=== PATIENT | female | born 1950 | race Caucasian/White ===

== ENCOUNTER 2019-05-06 12:01 | Inpatient (IN) ==
[2019-05-06] MEDS ORDERED: IOPAMIDOL 100 ML BOTTLE IV ONE (12:02)
[2019-05-06] MEDS ORDERED: 0.9 % SODIUM CHLORIDE 1,000 ML IV ONE ×2 (12:25→13:56)
--- NOTE | 2019-05-06 12:26 | Emergency Department Note ---
Altered Mental Status HPI - General Chief Complaint: Altered Mental Status Stated Complaint: Decreased LOC, Time Seen by Provider: 05/06/19 12:16 Source: patient, EMS Mode of arrival: EMS Limitations: no limitations - History of Present Illness HPI Narrative: 69-year-old female brought in by ambulance which apparently she is been on the floor for approximately 5 hours after falling out of her recliner and she was then unable to get up apparently she has a care provider and the care provider arrived when she was laying on the floor and she called 911. Apparently at 5:00 in the morning automotive glass mechanic went out to her house at approximately 5:00 in the morning because she apparently states that she had vomited. According to the fire department they have been to her house 49 times in the last month as she calls them frequently. Apparently she has dementia. Patient states she was just too weak to get up and had been vomiting prior. She denies any loss of consciousness denying any pain at this time.Septra temperature 97.0 pulse is 60 respirations are 18 blood pressure 132/71 pulse ox is 95% - Related Data Home Medications Medication Instructions Recorded Confirmed RX: Liothyronine Sodium 25 mcg PO HS 09/06/15 02/13/19 RX: amLODIPine [Norvasc] 10 mg PO DAILY 09/06/15 02/13/19 RX: Gabapentin [Neurontin] 200 mg PO TIDP PRN 06/09/18 02/13/19 RX: LORazepam [Ativan] 1 mg PO BID 06/09/18 02/13/19 RX: Levothyroxine [Synthroid] 175 mcg PO DAILY 06/09/18 02/13/19 RX: Losartan/Hydrochlorothiazide 1 each PO DAILY 06/09/18 02/13/19 [Losartan-Hctz 100-12.5 mg Tab] RX: PARoxetine [Paxil] 20 mg PO DAILY 06/09/18 12/25/18 RX: lamoTRIgine [Lamictal] 200 mg PO DAILY 06/09/18 12/25/18 RX: metFORMIN HCL [Metformin ER 500 mg PO BID 06/09/18 02/13/19 Osmotic] RX: traZODone HCL [Trazodone HCl] 150 mg PO HS 06/09/18 02/13/19 RX: QUEtiapine [Seroquel] 300 mg PO HS 06/10/18 02/13/19 linaclotide 290 mcg capsule 290 mcg PO QDAY 12/25/18 02/13/19 Previous Rx's Medication Instructions Recorded Peg 3350/Na Sulf,Bicarb,Cl/KCl 4,000 ml PO ONCE #1 oral.cristy 02/13/19 [Golytely] Sennosides/Docusate Sodium 1 each PO DAILY #30 tab 02/13/19 [Senna-S Tablet] Pantoprazole Sodium [Protonix] 40 mg PO DAILY #30 tablet. 04/06/19 Allergies Allergy/AdvReac Type Severity Reaction Status Date / Time Penicillins Allergy Severe Swelling Verified 05/06/19 12:09 of Throat Review of Systems All systems ED: reviewed and negative except as stated. Constitutional: Denies: fever, chills Neurological: Reports: weakness. Denies: headache, numbness, paresthesias, confusion, abnormal gait, dizziness Past Medical History - Past Medical History [facility] Narrative: All Active Problems (Last Updated 04/06/19 @ 07:24 by Osvaldo Grimes DO) Nausea & vomiting (Acute) Polydipsia (Acute) Peptic ulcer disease (Acute) Cigarette smoker (Chronic) Diabetes mellitus type 2, controlled (Chronic) Alzheimer's disease (Chronic) Bipolar disorder (Chronic) Elevated serum GGT level (Chronic) Hypertension, essential (Chronic) Hyperlipidemia (Chronic) Hypothyroidism (acquired) (Chronic) Obesity (Chronic) Constipation (Chronic) Vitamin D deficiency (Chronic) Osteoporosis (Chronic) Osteopenia (Chronic) Constipation (Chronic) Anxiety about health (Chronic) Cognitive dysfunction (Chronic) Cough (Chronic) Abdominal pain (Chronic) Schwannoma (Chronic 02/06/12) Depression (Chronic) Seborrhea (Chronic) Past Surgical History (Last Updated 07/25/18 @ 23:47 by Osvaldo Grimes DO) H/O colonoscopy (Inactive 08/23/15) Family History Mother Arthritis Essential hypertension Father Myocardial Infarction Unknown Chronic obstructive pulmonary disease Medical history: Reports: cancer, COPD, dementia, DM, hyperlipidemia, hypertension, osteoporosis, thyroid disease, other Psychiatric history: Reports: anxiety, bipolar [employer]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 Absent: respiratory distress, rales/crackles, wheezes Cardiovascular: Present: regular rate, normal rhythm, normal heart sounds. Absent: bradycardia, tachycardia, irregular rhythm Abdominal: Present: soft, normal bowel sounds. Absent: distention, tenderness, guarding, rebound, rigidity Extremities: Present: normal inspection, full ROM. Absent: tenderness Back: Present: normal inspection, full ROM. Absent: tenderness Patient oriented to: Present: person, place, time Speech: Present: fluid speech Cranial nerves: EOM function (II, III, IV, ): Normal, facial sensation (V): Normal, facial palsy (VII): Normal, gag reflex (IX): Normal, spinal accessory function (XI): Normal, tongue deviation (XII): Normal Motor strength - LUE: 4/5 Motor strength - RUE: 4/5 Motor strength - LLE: 4/5 Motor strength - RLE: 4/5 Upper motor neuron exam: Babinski sign: Absent bilaterally Sensory exam upper extremity: Normal: light touch Sensory exam lower extremity: Normal: light touch DTR: 2+: patellar (L), patellar (R) Coma Scale Eye Opening: Spontaneous Coma Scale Motor Response: Obeys Commands Coma Scale Verbal Response: Oriented Coma Scale Total: 15 Psychiatric: Present: flat affect Course Vital Signs Temperature 97.0 F 05/06/19 12:03 Pulse Rate 60 05/06/19 12:03 Respiratory Rate 18 05/06/19 12:03 Blood Pressure 132/71 05/06/19 12:03 Pulse Oximetry (%) 95 05/06/19 12:03 Temperature 97.0 F 05/06/19 15:30 Pulse Rate 73 05/06/19 15:30 Respiratory Rate 18 05/06/19 15:30 Blood Pressure 151/86 05/06/19 15:30 Pulse Oximetry (%) 97 05/06/19 15:30 Altered Mental Status - MDM Narrative Medical decision making narrative: Potassium was 2.8 and K rider home. Given IV fluids sodium was low at 110. Patient consulted with Dr. Hirsch he is here to evaluate patient patient to be admitted blood was less than 0.01 - Lab Data Result diagrams: 05/06/19 13:47 05/06/19 12:43 Lab Results 05/06/19 05/06/19 05/06/19 Range/Units 12:43 12:43 12:43 WBC (4.5-11.0) K/mcL RBC (4.00-5.20) M/mcL Hgb (12.0-15.0) g/dL Hct (36.0-48.0) % POC Hct 41.0 (36.0-48.0) % MCV (80.0-100.0) fL MCH (26.0-34.0) pg MCHC (31.0-36.0) g/dL RDW (11.5-14.5) % Plt Count (140-440) K/mcL MPV (7.4-10.4) fL Gran % (38.0-78.0) % Lymph % (Auto) (15.5-49.0) % [place] % (Auto) (1.0-12.0) % Eos % (Auto) (0.0-7.0) % Baso % (Auto) (0.0-2.0) % Gran # (1.8-8.0) K/mcL Lymph # (Auto) (1.5-4.8) K/mcL [place] # (Auto) (0.1-0.9) K/mcL Eos # (Auto) (0.0-0.7) K/mcL Baso # (Auto) (0.0-0.3) K/mcL POC PT 11.7 L (11.9-14.5) sec POC INR 1.0 (0.9-1.2) VBG Lactic Acid (0.5-2.0) mmol/L POC Sodium 110 L* (133-145) mmol/L Sodium 112 L* (133-145) mmol/L POC Potassium 2.8 L* (3.3-5.1) mmol/L Potassium 2.8 L* (3.3-5.1) mmol/L POC Chloride 73 L (96-108) mmol/L Chloride 74 L (96-108) mmol/L Carbon Dioxide 26 (22-30) mmol/L POC Total CO2 27 (22-30) mmol/L Anion Gap 12.0 (8-16) POC BUN < 3 L (8-23) mg/dl BUN 4 L (8-23) mg/dl Creatinine 0.7 (0.6-1.1) mg/dl POC Creatinine 0.7 (0.6-1.1) mg/dl GFR Calculation 88 Glucose 105 (70-105) mg/dL POC Glucose 107 H (70-105) mg/dL Calcium 10.2 (8.6-10.4) mg/dl POC WB Ioniz Calcium 1.14 L (1.16-1.32) mmol/L Magnesium (1.6-2.5) mg/dL Total Bilirubin 1.1 H (0.0-1.0) mg/dL AST 27 (0-37) U/l ALT 19 (0-40) U/l Alkaline Phosphatase 84 (39-117) U/L Total Creatine Kinase 491 H (24-170) IU/L CK-MB (CK-2) (0-2.9) ng/ml Myoglobin 550 H (25-58) ng/ml Troponin T (0-0.03) ng/ml Total Protein 6.9 (5.9-8.4) gm/dL Albumin 4.3 (3.2-5.2) gm/dL Globulin 2.6 (2.2-3.7) gm/dL Albumin/Globulin Ratio 1.7 (1.0-2.3) TSH (0.27-5.01) uIU/ml Random Cortisol ug/dl Urine Color Urine Appearance Urine pH (5.0-9.0) Ur Specific [place] (1.000-1.035) Urine Protein (NEG) mg/dL Urine Glucose (UA) (NEG) mg/dL Urine Ketones (NEG) mg/dL Urine Occult Blood (<0.03) mg/dL Urine Nitrate (NEG) Urine Bilirubin (NEG) mg/dL Urine Urobilinogen (NEG) mg/dL Ur Leukocyte Esterase (NEG) /uL Ur Culture Indicated? Urine Osmolality (80-1000) mOsm/kg Ur Random Sodium mmol/L Ethyl Alcohol < 0.010 (<0.010) gm/dl 05/06/19 05/06/19 05/06/19 Range/Units 12:44 12:44 12:44 WBC (4.5-11.0) K/mcL RBC (4.00-5.20) M/mcL Hgb (12.0-15.0) g/dL Hct (36.0-48.0) % POC Hct (36.0-48.0) % MCV (80.0-100.0) fL MCH (26.0-34.0) pg MCHC (31.0-36.0) g/dL RDW (11.5-14.5) % Plt Count (140-440) K/mcL MPV (7.4-10.4) fL Gran % (38.0-78.0) % Lymph % (Auto) (15.5-49.0) % [place] % (Auto) (1.0-12.0) % Eos % (Auto) (0.0-7.0) % Baso % (Auto) (0.0-2.0) % Gran # (1.8-8.0) K/mcL Lymph # (Auto) (1.5-4.8) K/mcL [place] # (Auto) (0.1-0.9) K/mcL Eos # (Auto) (0.0-0.7) K/mcL Baso # (Auto) (0.0-0.3) K/mcL POC PT (11.9-14.5) sec POC INR (0.9-1.2) VBG Lactic Acid 1.9 (0.5-2.0) mmol/L POC Sodium (133-145) mmol/L Sodium (133-145) mmol/L POC Potassium (3.3-5.1) mmol/L Potassium (3.3-5.1) mmol/L POC Chloride (96-108) mmol/L Chloride (96-108) mmol/L Carbon Dioxide (22-30) mmol/L POC Total CO2 (22-30) mmol/L Anion Gap (8-16) POC BUN (8-23) mg/dl BUN (8-23) mg/dl Creatinine (0.6-1.1) mg/dl POC Creatinine (0.6-1.1) mg/dl GFR Calculation Glucose (70-105) mg/dL POC Glucose (70-105) mg/dL Calcium (8.6-10.4) mg/dl POC WB Ioniz Calcium (1.16-1.32) mmol/L Magnesium (1.6-2.5) mg/dL Total Bilirubin (0.0-1.0) mg/dL AST (0-37) U/l ALT (0-40) U/l Alkaline Phosphatase (39-117) U/L Total Creatine Kinase (24-170) IU/L CK-MB (CK-2) 9.0 H (0-2.9) ng/ml Myoglobin (25-58) ng/ml Troponin T < 0.01 (0-0.03) ng/ml Total Protein (5.9-8.4) gm/dL Albumin (3.2-5.2) gm/dL Globulin (2.2-3.7) gm/dL Albumin/Globulin Ratio (1.0-2.3) TSH (0.27-5.01) uIU/ml Random Cortisol ug/dl Urine Color Urine Appearance Urine pH (5.0-9.0) Ur Specific [place] (1.000-1.035) Urine Protein (NEG) mg/dL Urine Glucose (UA) (NEG) mg/dL Urine Ketones (NEG) mg/dL Urine Occult Blood (<0.03) mg/dL Urine Nitrate (NEG) Urine Bilirubin (NEG) mg/dL Urine Urobilinogen (NEG) mg/dL Ur Leukocyte Esterase (NEG) /uL Ur Culture Indicated? Urine Osmolality (80-1000) mOsm/kg Ur Random Sodium mmol/L Ethyl Alcohol (<0.010) gm/dl 05/06/19 05/06/19 05/06/19 Range/Units 12:44 13:47 14:16 WBC 12.7 H (4.5-11.0) K/mcL RBC 4.47 (4.00-5.20) M/mcL Hgb 12.9 (12.0-15.0) g/dL Hct 38.2 (36.0-48.0) % POC Hct (36.0-48.0) % MCV 85.4 (80.0-100.0) fL MCH 28.9 (26.0-34.0) pg MCHC 33.8 (31.0-36.0) g/dL RDW 12.9 (11.5-14.5) % Plt Count 292 (140-440) K/mcL MPV 6.9 L (7.4-10.4) fL Gran % 82.9 H (38.0-78.0) % Lymph % (Auto) 8.8 L (15.5-49.0) % [place] % (Auto) 7.9 (1.0-12.0) % Eos % (Auto) 0.3 (0.0-7.0) % Baso % (Auto) 0.1 (0.0-2.0) % Gran # 10.5 H (1.8-8.0) K/mcL Lymph # (Auto) 1.1 L (1.5-4.8) K/mcL [place] # (Auto) 1.0 H (0.1-0.9) K/mcL Eos # (Auto) 0 (0.0-0.7) K/mcL Baso # (Auto) 0 (0.0-0.3) K/mcL POC PT (11.9-14.5) sec POC INR (0.9-1.2) VBG Lactic Acid (0.5-2.0) mmol/L POC Sodium (133-145) mmol/L Sodium (133-145) mmol/L POC Potassium (3.3-5.1) mmol/L Potassium (3.3-5.1) mmol/L POC Chloride (96-108) mmol/L Chloride (96-108) mmol/L Carbon Dioxide (22-30) mmol/L POC Total CO2 (22-30) mmol/L Anion Gap (8-16) POC BUN (8-23) mg/dl BUN (8-23) mg/dl Creatinine (0.6-1.1) mg/dl POC Creatinine (0.6-1.1) mg/dl GFR Calculation Glucose (70-105) mg/dL POC Glucose (70-105) mg/dL Calcium (8.6-10.4) mg/dl POC WB Ioniz Calcium (1.16-1.32) mmol/L Magnesium (1.6-2.5) mg/dL Total Bilirubin (0.0-1.0) mg/dL AST (0-37) U/l ALT (0-40) U/l Alkaline Phosphatase (39-117) U/L Total Creatine Kinase (24-170) IU/L CK-MB (CK-2) (0-2.9) ng/ml Myoglobin (25-58) ng/ml Troponin T (0-0.03) ng/ml Total Protein (5.9-8.4) gm/dL Albumin (3.2-5.2) gm/dL Globulin (2.2-3.7) gm/dL Albumin/Globulin Ratio (1.0-2.3) TSH (0.27-5.01) uIU/ml Random Cortisol ug/dl Urine Color Straw Urine Appearance Clear Urine pH 7.0 (5.0-9.0) Ur Specific [place] 1.001 (1.000-1.035) Urine Protein Neg (NEG) mg/dL Urine Glucose (UA) Negative (NEG) mg/dL Urine Ketones Neg (NEG) mg/dL Urine Occult Blood Neg (<0.03) mg/dL Urine Nitrate Neg (NEG) Urine Bilirubin Neg (NEG) mg/dL Urine Urobilinogen Neg (NEG) mg/dL Ur Leukocyte Esterase Neg (NEG) /uL Ur Culture Indicated? No Urine Osmolality 60 L (80-1000) mOsm/kg Ur Random Sodium < 20 mmol/L Ethyl Alcohol (<0.010) gm/dl 05/06/19 05/06/19 Range/Units 14:16 14:35 WBC (4.5-11.0) K/mcL RBC (4.00-5.20) M/mcL Hgb (12.0-15.0) g/dL Hct (36.0-48.0) % POC Hct (36.0-48.0) % MCV (80.0-100.0) fL MCH (26.0-34.0) pg MCHC (31.0-36.0) g/dL RDW (11.5-14.5) % Plt Count (140-440) K/mcL MPV (7.4-10.4) fL Gran % (38.0-78.0) % Lymph % (Auto) (15.5-49.0) % [place] % (Auto) (1.0-12.0) % Eos % (Auto) (0.0-7.0) % Baso % (Auto) (0.0-2.0) % Gran # (1.8-8.0) K/mcL Lymph # (Auto) (1.5-4.8) K/mcL [place] # (Auto) (0.1-0.9) K/mcL Eos # (Auto) (0.0-0.7) K/mcL Baso # (Auto) (0.0-0.3) K/mcL POC PT (11.9-14.5) sec POC INR (0.9-1.2) VBG Lactic Acid (0.5-2.0) mmol/L POC Sodium (133-145) mmol/L Sodium (133-145) mmol/L POC Potassium (3.3-5.1) mmol/L Potassium (3.3-5.1) mmol/L POC Chloride (96-108) mmol/L Chloride (96-108) mmol/L Carbon Dioxide (22-30) mmol/L POC Total CO2 (22-30) mmol/L Anion Gap (8-16) POC BUN (8-23) mg/dl BUN (8-23) mg/dl Creatinine (0.6-1.1) mg/dl POC Creatinine (0.6-1.1) mg/dl GFR Calculation Glucose (70-105) mg/dL POC Glucose (70-105) mg/dL Calcium (8.6-10.4) mg/dl POC WB Ioniz Calcium (1.16-1.32) mmol/L Magnesium 1.6 (1.6-2.5) mg/dL Total Bilirubin (0.0-1.0) mg/dL AST (0-37) U/l ALT (0-40) U/l Alkaline Phosphatase (39-117) U/L Total Creatine Kinase (24-170) IU/L CK-MB (CK-2) (0-2.9) ng/ml Myoglobin (25-58) ng/ml Troponin T (0-0.03) ng/ml Total Protein (5.9-8.4) gm/dL Albumin (3.2-5.2) gm/dL Globulin (2.2-3.7) gm/dL Albumin/Globulin Ratio (1.0-2.3) TSH 0.79 (0.27-5.01) uIU/ml Random Cortisol 34.33 ug/dl Urine Color Urine Appearance Urine pH (5.0-9.0) Ur Specific [place] (1.000-1.035) Urine Protein (NEG) mg/dL Urine Glucose (UA) (NEG) mg/dL Urine Ketones (NEG) mg/dL Urine Occult Blood (<0.03) mg/dL Urine Nitrate (NEG) Urine Bilirubin (NEG) mg/dL Urine Urobilinogen (NEG) mg/dL Ur Leukocyte Esterase (NEG) /uL Ur Culture Indicated? Urine Osmolality (80-1000) mOsm/kg Ur Random Sodium mmol/L Ethyl Alcohol (<0.010) gm/dl Disposition Pt seen by OUTPATIENT PHYSICAL THERAPIST/PA only: No Clinical Impression: Hypokalemia, Hyponatremia Disposition: Xfer As Inpt ([facility]) Condition: Fair
[2019-05-06 12:51] LABS: POC Blood Urea Nitrogen < 3 mg/dl (8-23); POC CO2 27 mmol/L (22-30); POC Calcium, Ionized 1.14 mmol/L (1.16-1.32); POC Chloride 73 mmol/L (96-108); POC Creatinine 0.7 mg/dl (0.6-1.1); POC Glucose, Random 107 mg/dL (70-105); POC Potassium 2.8 mmol/L (3.3-5.1); POC Pro Time 11.7 sec (11.9-14.5); POC Sodium 110 mmol/L (133-145)
[2019-05-06] MEDS ORDERED: POTASSIUM CHLORIDE 40 MEQ in DEXTROSE 5% IN WATER 500 ML IV ONE ×2 (12:54→21:22)
[2019-05-06 13:19] LABS: Appearance,Urine CLEAR; Bilirubin,Urine NEG (NEG); Color,Urine STRAW; Culture Indicated,Urine NO; Glucose,Urine (UA) NEGATIVE (NEG); Ketones,Urine NEG (NEG); Leukocyte Esterase,Urine NEG /uL (NEG); Nitrate,Urine NEG (NEG); Protein,Urine NEG (NEG); Specific Gravity,Urine 1.001 (1.000-1.035); Urine Blood NEG mg/dL (<0.03); Urobilinogen,Urine NEG (NEG)
--- NOTE | 2019-05-06 13:28 | XRay Report ---
CLINICAL INFORMATION: dec loc COMPARISON: 04/06/2019 FINDINGS: The heart size, mediastinum and pulmonary vessels are unremarkable. The lungs are clear. There are no effusions. The bones and soft tissues are within normal limits. IMPRESSION: Normal chest. Interpreted and Authenticated by: Paul Harper 05/06/19
--- NOTE | 2019-05-06 13:28 | Cat Scan Report ---
CLINICAL INFORMATION: Altered mental status COMPARISON: 02/20/2018 TECHNIQUE: 2.5 mm helical slices were obtained in the skull base to vertex. Following reconstruction, axial reformatted images were reviewed at bone and parenchymal windows. The exam was performed using radiation dose optimization techniques including, but not limited to, automated exposure control, adjustment of the mA and/or kV according to patient size and use of iterative reconstruction technique. FINDINGS: The ventricles, sulci, fissures, and cisterns are normal in size and configuration for age. No extra-axial fluid collections are identified. Minimal chronic ischemic changes in the superior white matter typical for age - cerebrum, brainstem and cerebellum are, otherwise, unremarkable. There is no evidence of hemorrhage, mass effect, or edema. Bone windows show no osseous abnormality. IMPRESSION: Mild atrophy and minimal chronic ischemic changes in the deep cerebral white matter - typical for age and stable. Interpreted and Authenticated by: Paul Harper 05/06/19
[2019-05-06 13:33] LABS: Alcohol, Blood < 10.0 mg/dL (<10); Alcohol,Blood < 0.010 gm/dl (<0.010)
[2019-05-06 13:43] LABS: Myoglobin 550 ng/ml (25-58)
[2019-05-06 13:49] LABS: ALT/SGPT 19 U/l (0-40); AST/SGOT 27 U/l (0-37); Albumin 4.3 gm/dL (3.2-5.2); Albumin/Globulin Ratio 1.7 (1.0-2.3); Alkaline Phosphatase 84 U/L (39-117); Bilirubin,Total 1.1 mg/dL (0.0-1.0); Blood Urea Nitrogen 4 mg/dl (8-23); Calcium 10.2 mg/dl (8.6-10.4); Carbon Dioxide 26 mmol/L (22-30); Chloride 74 mmol/L (96-108); Creatine Kinase 491 IU/L (24-170); Globulin 2.6 gm/dL (2.2-3.7); Glomerular Filtration Rate 88; Glucose 105 mg/dL (70-105)
[2019-05-06 14:16] LABS: Basophils # (Auto) 0 K/mcL (0.0-0.3); Basophils % (Auto) 0.1 % (0.0-2.0); Eosinophils # (Auto) 0 K/mcL (0.0-0.7); Eosinophils % (Auto) 0.3 % (0.0-7.0); Granulocytes % (Auto) 82.9 % (38.0-78.0); Hematocrit 38.2 % (36.0-48.0); Hemoglobin 12.9 g/dL (12.0-15.0); Lymphocytes # (Auto) 1.1 K/mcL (1.5-4.8); Lymphocytes % (Auto) 8.8 % (15.5-49.0); Mean Cell Volume 85.4 fL (80.0-100.0); Mean Corpuscular HGB Conc 33.8 g/dL (31.0-36.0); Mean Platelet Volume 6.9 fL (7.4-10.4); Monocytes % (Auto) 7.9 % (1.0-12.0); Platelet Count 292 K/mcL (140-440); RBC 4.47 M/mcL (4.00-5.20); Red Cell Distribution Width 12.9 % (11.5-14.5); WBC 12.7 K/mcL (4.5-11.0)
--- NOTE | 2019-05-06 14:38 | Internal Med History&Physical ---
Medical - H&P: [facility] Patient information: Note initiated : 05/06/19 at 2:35 pm Service Date, if different from initiated Date: [] Patient: Cynthia Kirby a 69 y/o F admitted on for Decreased LOC. Chief Complaint: [] History of present illness: Ms. Kirby is a 69 year old F history of dementia, psychiatric disorders, pre sents to the emergency room for altered mental status and falls. Patient is unable to provide any meaningful history due to altered status, history is provided by the patient's caregiver. The patient has had a new caregiver approximately 2 weeks, she notes that she last saw the patient on Friday at which time patient was having some vomiting, the patient vomited 3 times in front of her. This morning the patient apparently called 911 but refused to come to the emergency room. When the caregiver went to see the patient she noted that the patient was on the floor and there was a broken piece of furniture in the house. Likely patient fell on the back. Patient was altered and unable to provide any history and therefore was brought to the emergency room. It seems like she was soiled in urine and possibly feces. On my evaluation patient is altered unable to provide any history she does r espond to verbal commands but is drowsy, GCS score is 10 patient is able to maintain her airway. She is afebrile heart rate 68 blood pressure 132/ 71 presentation saturating more than 90% on room air. She briefly dropped her blood pressure to 79/50 and was resuscitated with IV fluids. By the time I reached the emergency room patient's blood pressure was back to normal range CBC is pending, patient had low potassium of 2.8, sodium of 112 chloride 74 bicarbonate 26 BUN 4 creatinine 0.7 glucose 105 CK is 491 troponin is negative, EKG shows sinus rhythm nonspecific ST-T wave changes and PVCs. Head CT was reported as no acute changes Chest x-ray was negative. Given the fact this patient has low sodium values, altered patient is going to be admitted to the ICU for further management I have consulted nephrology to help me manage patient's hyponatremia ROS unobtainable: due to mental status Medical - H&P: [facility] Medical history: Medical History (Last Updated 04/06/19 @ 07:24 by Osvaldo Grimes DO) Cigarette smoker (Chronic) Diabetes mellitus type 2, controlled (Chronic) Alzheimer's disease (Chronic) Bipolar disorder (Chronic) Elevated serum GGT level (Chronic) Hypertension, essential (Chronic) Hyperlipidemia (Chronic) Hypothyroidism (acquired) (Chronic) Obesity (Chronic) Constipation (Chronic) Vitamin D deficiency (Chronic) Osteoporosis (Chronic) Osteopenia (Chronic) Constipation (Chronic) Anxiety about health (Chronic) Cognitive dysfunction (Chronic) Cough (Chronic) Abdominal pain (Chronic) Schwannoma (Chronic 02/06/12) Depression (Chronic) Seborrhea (Chronic) Acute anxiety (Resolved) Acute cystitis with hematuria (Resolved) Ankle fracture (Resolved) Anxiety (Resolved) Bimalleolar fracture of right ankle (Resolved) Flea bite (Resolved) Foot pain, right (Resolved) Hypokalemia (Resolved) Rectal pain (Resolved) Sepsis (Resolved) Urinary tract infection (Resolved) Yeast infection (Resolved) Encounter for medication refill (Inactive) Surgical history: Past Surgical History (Last Updated 07/25/18 @ 23:47 by Osvaldo Grimes DO) H/O colonoscopy (Inactive 08/23/15) Pertinent family history: Family History Mother Arthritis Essential hypertension Father Myocardial Infarction Unknown Chronic obstructive pulmonary disease Social history: Patient's past medical history surgical history family history and social history is reviewed from previous record Medical - H&P: Meds Home Medications Medication Instructions Recorded Confirmed Type Liothyronine Sodium 25 mcg PO HS 09/06/15 02/13/19 History amLODIPine [Norvasc] 10 mg PO DAILY 09/06/15 02/13/19 History Gabapentin [Neurontin] 200 mg PO TIDP PRN 06/09/18 02/13/19 History LORazepam [Ativan] 1 mg PO BID 06/09/18 02/13/19 History Levothyroxine [Synthroid] 175 mcg PO DAILY 06/09/18 02/13/19 History Losartan/Hydrochlorothiazide 1 each PO DAILY 06/09/18 02/13/19 History [Losartan-Hctz 100-12.5 mg Tab] PARoxetine [Paxil] 20 mg PO DAILY 06/09/18 12/25/18 History lamoTRIgine [Lamictal] 200 mg PO DAILY 06/09/18 12/25/18 History metFORMIN HCL [Metformin ER 500 mg PO BID 06/09/18 02/13/19 History Osmotic] traZODone HCL [Trazodone HCl] 150 mg PO HS 06/09/18 02/13/19 History QUEtiapine [Seroquel] 300 mg PO HS 06/10/18 02/13/19 History linaclotide 290 mcg capsule 290 mcg PO QDAY 12/25/18 02/13/19 History Peg 3350/Na Sulf,Bicarb,Cl/KCl 4,000 ml PO ONCE #1 oral.cristy 02/13/19 Rx [Golytely] Sennosides/Docusate Sodium 1 each PO DAILY #30 tab 02/13/19 Rx [Senna-S Tablet] Pantoprazole Sodium [Protonix] 40 mg PO DAILY #30 tablet. 04/06/19 Rx Allergies Allergy/AdvReac Type Severity Reaction Status Date / Time Penicillins Allergy Severe Swelling Verified 05/06/19 12:09 of Throat Medical - H&P: Exam - Constitutional Vitals: Temp Pulse Resp BP Pulse Ox 97.0 F 69 13 87/57 94 05/06/19 12:03 05/06/19 14:07 05/06/19 14:07 05/06/19 14:01 05/06/19 14:07 Exam: GENERAL: The patient is a well-developed, obese well-nourished in no apparent distress. Is drowsy and oriented x0. VITAL SIGNS: Reviewed and as noted elsewhere. HEENT: Head is normocephalic and atraumatic. Extraocular muscles are intact. Pupils are equal, round, and reactive to light. Nares appeared normal. Mouth appears any without lesions. Mucous membranes are dry. NECK: Normal to inspection, Supple, No lymphadenopathy or thyromegaly. LUNGS: Air entry equal on both sides, no wheezing, crackles or rhonchi noted. No accessory muscles of respiration HEART: Regular rate and rhythm normal, S1 and S2 heard, no Gallop, S3 or Rub Noted, No Gross murmur heard. ABDOMEN: Soft, nontender, and has hypogastric distention. Positive bowel sounds. No hepatosplenomegaly was noted. EXTREMITIES: No cyanosis, clubbing, rash, lesions or edema. NEUROLOGIC: Cranial nerves II through XII are grossly intact. Moving all four extremities. PSYCHIATRIC: drowsy SKIN: No ulceration or wounds noted, No jaundice, No rash noted. Medical - H&P: Reslt - Labs CBC & Chem 7: 05/06/19 13:47 05/06/19 12:43 Labs: Short CBC 05/06/19 Range/Units 13:47 WBC 12.7 H (4.5-11.0) K/mcL Hgb 12.9 (12.0-15.0) g/dL Hct 38.2 (36.0-48.0) % Plt Count 292 (140-440) K/mcL BMP 05/06/19 12:43 Sodium 112 L* Potassium 2.8 L* Chloride 74 L Carbon Dioxide 26 BUN 4 L Creatinine 0.7 Glucose 105 Calcium 10.2 Cardiac Enzymes 05/06/19 05/06/19 05/06/19 Range/Units 12:43 12:44 12:44 Total Creatine Kinase 491 H (24-170) IU/L CK-MB (CK-2) 9.0 H (0-2.9) ng/ml Troponin T < 0.01 (0-0.03) ng/ml Liver Function 05/06/19 Range/Units 12:43 Total Bilirubin 1.1 H (0.0-1.0) mg/dL AST 27 (0-37) U/l ALT 19 (0-40) U/l Alkaline Phosphatase 84 (39-117) U/L Albumin 4.3 (3.2-5.2) gm/dL Urine 05/06/19 Range/Units 12:44 Urine Color Straw Urine Appearance Clear Urine pH 7.0 (5.0-9.0) Ur Specific [place] 1.001 (1.000-1.035) Urine Protein Neg (NEG) mg/dL Urine Glucose (UA) Negative (NEG) mg/dL Medical - H&P: A/P - Narrative A/P Narrative: A/P Metabolic Encephalopathy -due to low sodium -treat underlying etiology -start pt on thiamine. Chronic Hyponatremia -Due to volume depletion -psych history, last sodium last month was 130 -nephrology consulted to help manage hyponatremia, -2L saline already given in ER, will review repeat labs -check urine sodium, osm, tsh and cortisol level Hypokalemia -replace K, orally once pt is able to take po -check mg Dementia -high risk of delirum, monitor, Psychosis -resume home meds once verfied. Nausea/Vomiting -Etiology -Check CT abdomen and plevis DM -glucose level seems well controlled, will monitor on bmp for now -will add SSI coverage if needed HTN -low bp recorded in ER, -hold bp meds till bp stable x 24hrs -will consider stopping hctz in bp medication as can contribute/cause hyponatremia. DVT hep sq Regular diet if able Full code Patient seems to have 2 hrs of care services,will have social service evaluate home situation. Social History - Social History marital status: other: Children-1 - Tobacco smoking status: Current every day smoker - Alcohol alcohol intake frequency: does not drink - Substance use substance use type: does not use
[2019-05-06 14:44] LABS: Osmolality,Urine 60 mOsm/kg (80-1000)
[2019-05-06 14:51] LABS: Sodium, Urine Random < 20 mmol/L
[2019-05-06 15:01] LABS: Thyroid Stimulating Hormone 0.79 uIU/ml (0.27-5.01)
[2019-05-06] MEDS ORDERED: ONDANSETRON 4 MG/2 ML VIAL IV PRN (15:24)
[2019-05-06] MEDS ORDERED: ACETAMINOPHEN 325 MG TABLET PO PRN (15:24)
[2019-05-06] MEDS ORDERED: NALOXONE HCL 0.4 MG/ML VIAL IV PRN (15:24)
[2019-05-06] MEDS ORDERED: MAGNESIUM SULFATE 2 GM/50 ML BAG IV ONE (15:24)
--- NOTE | 2019-05-06 15:55 | Nephrology Consult Note ---
History of Present Illness - Reason for Consult Patient information: Note initiated : 05/06/19 at 3:53 pm Patient: Cynthia Kirby 69 y/o F admitted on 05/06/19 for Decreased LOC. Chief Complaint: Confusion and falls. Consult date: 05/06/19 hyponatremia Requesting physician: Job Hirsch - Chief Complaint Confusion and falls - History of Present Illness Cynthia Kirby is a 69-year-old female with hypertension, hyperlipidemia, hypothyroidism, diabetes mellitus type 2, presented to [facility] for confusion and falls and admitted to ICU on 05/06/19 for severe hyponatremia. Review of Systems Constitutional: anorexia, weakness Nose, mouth and throat: no nasal congestion, no sore throat Cardiovascular: no chest pain, no palpatations Respiratory: no cough, no dyspnea Gastrointestinal: nausea, vomiting Genitourinary: no dysuria, no hematuria Musculoskeletal: abnormal gait, muscle weakness Integumentary: no rash, no wounds Neurological: confusion, weakness Psychiatric: no anxiety, no panic attacks Endocrine: no cold intolerance, no heat intolerance Hematologic/Lymphatic: no easy bleeding, no easy bruising Allergic/Immunologic: no tongue swelling, no uticaria Past History Past medical history: Medical History (Last Updated 04/06/19 @ 07:24 by Osvaldo Grimes DO) Cigarette smoker (Chronic) Diabetes mellitus type 2, controlled (Chronic) Alzheimer's disease (Chronic) Bipolar disorder (Chronic) Elevated serum GGT level (Chronic) Hypertension, essential (Chronic) Hyperlipidemia (Chronic) Hypothyroidism (acquired) (Chronic) Obesity (Chronic) Constipation (Chronic) Vitamin D deficiency (Chronic) Osteoporosis (Chronic) Osteopenia (Chronic) Constipation (Chronic) Anxiety about health (Chronic) Cognitive dysfunction (Chronic) Cough (Chronic) Abdominal pain (Chronic) Schwannoma (Chronic 02/06/12) Depression (Chronic) Seborrhea (Chronic) Acute anxiety (Resolved) Acute cystitis with hematuria (Resolved) Ankle fracture (Resolved) Anxiety (Resolved) Bimalleolar fracture of right ankle (Resolved) Flea bite (Resolved) Foot pain, right (Resolved) Hypokalemia (Resolved) Rectal pain (Resolved) Sepsis (Resolved) Urinary tract infection (Resolved) Yeast infection (Resolved) Encounter for medication refill (Inactive) Past surgical history: Past Surgical History (Last Updated 07/25/18 @ 23:47 by Osvaldo Grimes DO) H/O colonoscopy (Inactive 08/23/15) Past family history: Family History Mother Arthritis Essential hypertension Father Myocardial Infarction Unknown Chronic obstructive pulmonary disease Past social history: Social History (Last Updated 12/25/18 @ 14:30 by Katelyn Valdes PA-C) No Social History Section defined Medications and Allergies Home Medications Medication Instructions Recorded Confirmed Type Liothyronine Sodium 25 mcg PO HS 09/06/15 02/13/19 History amLODIPine [Norvasc] 10 mg PO DAILY 09/06/15 02/13/19 History Gabapentin [Neurontin] 200 mg PO TIDP PRN 06/09/18 02/13/19 History LORazepam [Ativan] 1 mg PO BID 06/09/18 02/13/19 History Levothyroxine [Synthroid] 175 mcg PO DAILY 06/09/18 02/13/19 History Losartan/Hydrochlorothiazide 1 each PO DAILY 06/09/18 02/13/19 History [Losartan-Hctz 100-12.5 mg Tab] PARoxetine [Paxil] 20 mg PO DAILY 06/09/18 12/25/18 History lamoTRIgine [Lamictal] 200 mg PO DAILY 06/09/18 12/25/18 History metFORMIN HCL [Metformin ER 500 mg PO BID 06/09/18 02/13/19 History Osmotic] traZODone HCL [Trazodone HCl] 150 mg PO HS 06/09/18 02/13/19 History QUEtiapine [Seroquel] 300 mg PO HS 06/10/18 02/13/19 History linaclotide 290 mcg capsule 290 mcg PO QDAY 12/25/18 02/13/19 History Peg 3350/Na Sulf,Bicarb,Cl/KCl 4,000 ml PO ONCE #1 oral.cristy 02/13/19 Rx [Golytely] Sennosides/Docusate Sodium 1 each PO DAILY #30 tab 02/13/19 Rx [Senna-S Tablet] Pantoprazole Sodium [Protonix] 40 mg PO DAILY #30 tablet. 04/06/19 Rx Allergies Allergy/AdvReac Type Severity Reaction Status Date / Time Penicillins Allergy Severe Swelling Verified 05/06/19 12:09 of Throat Exam - Vital Signs Vital signs: Temp Pulse Resp BP Pulse Ox 97.0 F 73 18 151/86 97 05/06/19 15:30 07/18/19 15:30 05/06/19 15:30 05/06/19 15:30 05/06/19 15:30 - General Appearance General appearance: appears started age, frail EENT: mucous membranes dry Neck: supple Respiratory: clear Cardiology: no edema Gastrointestinal: no tenderness Integumentary: warm and dry Neurologic: confused Musculoskeletal: no deformities Psychiatric: mood/affect appropriate, cooperative Results - Lab Results 05/06/19 13:47 05/06/19 12:43 Most recent lab results Calcium 10.2 mg/dl (8.6-10.4) 05/06/19 12:43 Magnesium 1.6 mg/dL (1.6-2.5) 05/06/19 14:35 Assessment and Plan (1) Hyponatremia Cynthia Kirby is a 69-year-old female with hypertension, hyperlipidemia, hypothyroidism, diabetes mellitus type 2, presented to [facility] for confusion and falls and admitted to ICU on 05/06/19 for severe hyponatremia. Hyponatremia, present on arrival. suspected hypovolemic, severe (<120), likely chronic (>48 hours); symptomatic (nausea, vomiting, confusion), associated with gait instability, falls, cognitive dysfunction; not consistent with SIADH (Urine Sodium > 40, Urine Osmolality > 100). Treatment: 2 L NS in ED. Recommendations: Repeat serum sodium before further IVF. Target serum sodium elevation: 4-6 mEq/L initially then <4-6 mEq/L/24 hours. Monitor serum sodium frequently until >120 mEq/L. Goal serum sodium of >130 mEq/L. Status: Acute Priority: High (2) Hypokalemia Please see above Status: Acute Priority: High
[2019-05-06] MEDS: THIAMINE 100 MG in 0.9 % SODIUM CHLORIDE 50 ML IV SCH (16:10)
--- NOTE | 2019-05-06 16:24 | Cat Scan Report ---
CLINICAL INFORMATION: Abdominal pain and diarrhea COMPARISON: 04/06/2019 TECHNIQUE: Following enteric contrast, 80 cc of Isovue-300 were injected intravenously, and 60 seconds later, 0.625 mm helical slices were obtained from the mid heart through the subtrochanteric regions. Following reconstruction, 2.5 mm sagittal, coronal and axial reformatted images were processed and reviewed at bone, lung and soft tissue windows. Five minutes later, 0.625 mm helical slices were obtained from the mid heart through the kidneys and viewed at soft tissue windows.The exam was performed using radiation dose optimization techniques including, but not limited to, automated exposure control, adjustment of the mA and/or kV according to patient size and use of iterative reconstruction technique. FINDINGS: Lung bases show scattered scarring. No effusions. The visualized heart is normal in size with calcifications in the mitral annulus. Images through the abdomen show the gallbladder and bile ducts are normal: CBD is 5 mm. The liver, both adrenal glands, spleen, pancreas and aorta, including aortic branches, are normal in size, configuration and attenuation without focal lesion. There are multiple small cysts throughout both kidneys - as previously seen. They range up to 3.1 cm inferior pole the right kidney. There is no free air, free fluid no adenopathy. The stomach, small bowel, large bowel and appendix region are unremarkable. Images through the pelvis show urinary bladder be normal. Hysterectomy/oophorectomy for changes appreciated. The stomach, small and large bowel are grossly normal. No free air, free fluid or adenopathy. Bone windows show no focal osseous lesions. IMPRESSION: 1. Small periumbilical hernia, containing only mesenteric fat, is unchanged.. 2. Multiple cysts throughout both kidneys unchanged Interpreted and Authenticated by: Paul Harper 05/06/19
[2019-05-06] MEDS ORDERED: NICOTINE POLACRILEX 2 MG GUM CHEW/PARK PRN (18:23)
[2019-05-06] MEDS ORDERED: NICOTINE 21 MG PATCH TOPICAL ONE (18:23)
[2019-05-06 18:32] LABS: POC Blood Urea Nitrogen < 3 mg/dl (8-23); POC CO2 28 mmol/L (22-30); POC Calcium, Ionized 1.14 mmol/L (1.16-1.32); POC Chloride 85 mmol/L (96-108); POC Creatinine 0.7 mg/dl (0.6-1.1); POC Glucose, Random 111 mg/dL (70-105); POC Potassium 3.4 mmol/L (3.3-5.1); POC Sodium 121 mmol/L (133-145)
[2019-05-06] MEDS ORDERED: DEXTROSE 5% IN WATER 1,000 ML IV SCH (18:45)
[2019-05-06] MEDS ORDERED: DESMOPRESSIN ACETATE 2 MCG in 0.9 % SODIUM CHLORIDE 50 ML IV SCH (18:45)
[2019-05-06 19:19] LABS: Blood Urea Nitrogen 3 mg/dl (8-23); Calcium 9.9 mg/dl (8.6-10.4); Carbon Dioxide 22 mmol/L (22-30); Chloride 85 mmol/L (96-108); Glomerular Filtration Rate 88; Glucose 108 mg/dL (70-105)
[2019-05-06 19:22] LABS: Lithium Test 2.3 mmol/L
[2019-05-06] MEDS: 0.9 % SODIUM CHLORIDE 10 ML SYRINGE IV SCH ×2 (21:04→21:05)
[2019-05-06] MEDS: FAMOTIDINE/PF 20 MG/2 ML VIAL IV SCH (21:05)
[2019-05-06] MEDS: HEPARIN 5,000 UNIT/ML VIAL SQ SCH (21:05)
[2019-05-06 21:23] LABS: POC Blood Urea Nitrogen < 3 mg/dl (8-23); POC CO2 25 mmol/L (22-30); POC Calcium, Ionized 1.25 mmol/L (1.16-1.32); POC Chloride 85 mmol/L (96-108); POC Creatinine 0.7 mg/dl (0.6-1.1); POC Glucose, Random 179 mg/dL (70-105); POC Potassium 2.4 mmol/L (3.3-5.1); POC Sodium 125 mmol/L (133-145)
[2019-05-06] MEDS ORDERED: SODIUM CHLORIDE 0.9% IV ONE (21:23)
[2019-05-06] MEDS ORDERED: DESMOPRESSIN ACETATE IV ONE (21:23)
[2019-05-06] MEDS ORDERED: POTASSIUM CHLORIDE 20 MEQ PACKET PO ONE (21:24)
[2019-05-06] MEDS: DEXTROSE 5% IN WATER 1,000 ML IV SCH (21:28)
[2019-05-06] MEDS ORDERED: POTASSIUM CHLORIDE 20 MEQ/10 ML VIAL IV ONE (21:40)
[2019-05-06 23:57] LABS: POC Blood Urea Nitrogen < 3 mg/dl (8-23); POC CO2 26 mmol/L (22-30); POC Calcium, Ionized 1.22 mmol/L (1.16-1.32); POC Chloride 84 mmol/L (96-108); POC Creatinine 0.7 mg/dl (0.6-1.1); POC Glucose, Random 178 mg/dL (70-105); POC Potassium 2.9 mmol/L (3.3-5.1); POC Sodium 122 mmol/L (133-145)
[2019-05-07] MEDS ORDERED: POTASSIUM CHLORIDE 20 MEQ PACKET PO ONE ×3 (00:09→18:14)
[2019-05-07] MEDS: DEXTROSE 5% IN WATER 1,000 ML IV SCH ×3 (00:12→04:50)
[2019-05-07] MEDS ORDERED: POTASSIUM CHLORIDE 20 MEQ PACKET ONE (00:14)
[2019-05-07] MEDS ORDERED: DEXTROSE 5% IN WATER 1,000 ML IV SCH ×4 (00:15→12:15)
[2019-05-07] MEDS ORDERED: SODIUM CHLORIDE 0.9% IV ONE (02:00)
[2019-05-07] MEDS ORDERED: DESMOPRESSIN ACETATE IV ONE (02:00)
[2019-05-07 02:13] LABS: POC Blood Urea Nitrogen < 3 mg/dl (8-23); POC CO2 24 mmol/L (22-30); POC Calcium, Ionized 1.25 mmol/L (1.16-1.32); POC Chloride 86 mmol/L (96-108); POC Creatinine 0.8 mg/dl (0.6-1.1); POC Glucose, Random 140 mg/dL (70-105); POC Potassium 3.8 mmol/L (3.3-5.1); POC Sodium 122 mmol/L (133-145)
[2019-05-07] MEDS: 0.9 % SODIUM CHLORIDE 10 ML SYRINGE IV SCH ×5 (05:31→21:01)
[2019-05-07 05:33] LABS: Basophils # (Auto) 0 K/mcL (0.0-0.3); Basophils % (Auto) 0.1 % (0.0-2.0); Eosinophils # (Auto) 0.1 K/mcL (0.0-0.7); Eosinophils % (Auto) 1.7 % (0.0-7.0); Granulocytes % (Auto) 67.1 % (38.0-78.0); Hemoglobin 10.2 g/dL (12.0-15.0); Lymphocytes # (Auto) 1.5 K/mcL (1.5-4.8); Lymphocytes % (Auto) 19.4 % (15.5-49.0); Mean Cell Volume 87.1 fL (80.0-100.0); Mean Corpuscular HGB Conc 32.8 g/dL (31.0-36.0); Mean Platelet Volume 7.8 fL (7.4-10.4); Monocytes # (Auto) 0.9 K/mcL (0.1-0.9); Monocytes % (Auto) 11.7 % (1.0-12.0); Platelet Count 256 K/mcL (140-440); RBC 3.56 M/mcL (4.00-5.20); Red Cell Distribution Width 13.4 % (11.5-14.5); WBC 7.8 K/mcL (4.5-11.0)
[2019-05-07 06:15] LABS: Lithium Test < 0.1 mmol/L
[2019-05-07 07:41] LABS: POC Blood Urea Nitrogen < 3 mg/dl (8-23); POC CO2 24 mmol/L (22-30); POC Calcium, Ionized 1.19 mmol/L (1.16-1.32); POC Chloride 85 mmol/L (96-108); POC Creatinine 0.8 mg/dl (0.6-1.1); POC Glucose, Random 96 mg/dL (70-105); POC Potassium 3.3 mmol/L (3.3-5.1); POC Sodium 120 mmol/L (133-145)
[2019-05-07 08:36] LABS: ALT/SGPT 14 U/l (0-40); AST/SGOT 17 U/l (0-37); Albumin 3.8 gm/dL (3.2-5.2); Albumin/Globulin Ratio 1.6 (1.0-2.3); Alkaline Phosphatase 75 U/L (39-117); Bilirubin,Direct < 0.2 mg/dL (0.0-0.3); Bilirubin,Total 0.4 mg/dL (0.0-1.0); Blood Urea Nitrogen 5 mg/dl (8-23); Calcium 9.3 mg/dl (8.6-10.4); Carbon Dioxide 24 mmol/L (22-30); Chloride 84 mmol/L (96-108); Globulin 2.4 gm/dL (2.2-3.7); Glomerular Filtration Rate 65; Glucose 97 mg/dL (70-105); Lactate Dehydrogenase 151 U/L (94-250); Phosphorous 1.9 mg/dL (2.7-4.5); Triglycerides 88 mg/dl (<150)
--- NOTE | 2019-05-07 08:45 | Nephrology Progress Note ---
Subjective Patient information: Note initiated : 05/07/19 at 8:43 am Patient: Cynthia Kirby 69 y/o F admitted on 05/06/19 for Decreased LOC. Chief Complaint: Weakness Interval history: Weakness Whipple catheter Thirsty Pale Confusion resolved Objective - Vital Signs Vital signs: Vital Signs Temp Pulse Resp BP Pulse Ox 05/07/19 08:41 74 20 98 05/07/19 08:32 79 21 160/93 97 05/07/19 07:01 98.8 F 77 16 140/79 98 05/07/19 06:01 74 14 131/66 98 05/07/19 05:58 73 18 131/66 99 05/07/19 05:01 75 16 127/63 99 05/07/19 04:00 99.3 F H 75 131/67 99 05/07/19 03:01 74 115/61 97 05/07/19 03:00 98.4 F 74 115/61 98 05/07/19 02:01 77 16 133/69 97 05/07/19 01:01 82 24 H 116/72 98 05/07/19 01:00 82 17 116/72 98 05/07/19 00:01 79 19 121/49 98 05/06/19 23:58 77 18 121/49 98 05/06/19 23:53 99.2 F H 79 21 111/70 98 05/06/19 23:52 103 H 18 90 05/06/19 23:07 74 19 97 05/06/19 23:06 99.4 F H 75 19 137/74 97 05/06/19 23:05 99.4 F H 05/06/19 23:02 81 16 137/74 98 05/06/19 23:01 81 18 94/55 98 05/06/19 22:23 99.2 F H 05/06/19 22:20 99.7 F H 05/06/19 22:03 82 22 118/54 94 05/06/19 22:01 83 20 118/54 94 05/06/19 22:00 77 19 95 05/06/19 21:02 76 22 97 05/06/19 21:01 97.9 F 79 24 H 128/48 96 05/06/19 21:00 99.0 F 05/06/19 20:02 81 19 97 05/06/19 20:01 98.6 F 83 17 149/95 96 05/06/19 19:29 99.7 F H 05/06/19 19:26 75 13 95 05/06/19 19:01 100.1 F H 78 16 123/63 94 05/06/19 18:01 76 15 155/87 97 05/06/19 17:04 79 15 154/71 98 05/06/19 16:58 97.9 F 78 16 134/54 96 05/06/19 15:30 97.0 F 73 18 151/86 97 05/06/19 15:11 97.9 F 22 96 05/06/19 14:47 151/86 05/06/19 14:31 162/81 05/06/19 14:17 73 18 142/86 97 05/06/19 14:07 69 13 94 05/06/19 14:01 70 18 87/57 96 05/06/19 13:55 60 20 78/52 97 05/06/19 13:53 54 L 19 78/49 96 05/06/19 13:52 49 L 18 79/50 97 05/06/19 13:44 45 L 19 79/50 98 05/06/19 13:37 79 16 95 05/06/19 13:01 149/66 05/06/19 12:16 74 127/72 96 05/06/19 12:11 72 16 132/71 96 05/06/19 12:03 97.0 F 60 18 132/71 95 Intake and Output 05/06/19 05/07/19 05/07/19 21:59 05:59 13:59 Intake Total 1622.5 3080.75 Output Total 5810 595 Balance -4187.5 2485.75 Intake: IV 1422.5 2740.75 Sodium Chloride 0.9% 1,000 ml @ 1000 Wide Open IV BOLUS ONE Rx#: [id number] Ddavp 5 Mcg In Sodium Chloride 50.5 51.25 0.9% 50 ml @ 200 mls/hr IV ONCE ONE Rx#:[id number] Dextrose 5% in Water 1,000 ml @ 2117 250 mls/hr IV .Q4H YG Rx#: [id number] Potassium Chloride 40 Meq In 271 Dextrose 5% in Water 500 ml @ 130 mls/hr IV ONCE ONE Rx#: [id number] Vitamin B1 100 mg In Sodium 51 Chloride 0.9% 50 ml @ 50 mls/hr IV DAILY [facility] Rx#:[id number] Oral 200 340 Output: Urine Catheter Amount 4610 595 Void Amount 1200 Other: Meal Dinner Nourishment/Supplement Percent of Meal Consumed 100% 100% Feeding Ability Independent Independent Nourishment/Supplement name Egg Salad with crackers Tuna and crackers Urine Appearance Clear Clear Fem Cath Clear Clear Urine Color Bright Yellow Dark Yellow Fem Cath Pale Dark Yellow Weight 175 lb 14.4 oz Intake & Output: Intake & Output 05/06/19 05/07/19 05/07/19 21:59 05:59 13:59 Intake Total 1622.5 3080.75 Output Total 5810 595 Balance -4187.5 2485.75 Weight 175 lb 14.4 oz Intake: IV 1422.5 2740.75 Sodium Chloride 0.9% 1,000 ml @ 1000 Wide Open IV BOLUS ONE Rx#: [id number] Ddavp 5 Mcg In Sodium Chloride 50.5 51.25 0.9% 50 ml @ 200 mls/hr IV ONCE ONE Rx#:[id number] Dextrose 5% in Water 1,000 ml @ 2117 250 mls/hr IV .Q4H [facility] Rx#: [id number] Potassium Chloride 40 Meq In 271 Dextrose 5% in Water 500 ml @ 130 mls/hr IV ONCE ONE Rx#: [id number] Vitamin B1 100 mg In Sodium 51 Chloride 0.9% 50 ml @ 50 mls/hr IV DAILY [facility] Rx#:[id number] Oral 200 340 Output: Urine Catheter Amount 4610 595 Void Amount 1200 Other: Meal Dinner Nourishment/Supplement Percent of Meal Consumed 100% 100% Feeding Ability Independent Independent Nourishment/Supplement name Egg Salad with crackers Tuna and crackers Urine Appearance Clear Clear Fem Cath Clear Clear Urine Color Bright Yellow Dark Yellow Fem Cath Pale Dark Yellow - General Appearance General appearance: fatigue EENT: mucous membranes moist Neck: supple Respiratory: clear Cardiology: no edema Gastrointestinal: no tenderness Integumentary: warm and dry Neurologic: no focal deficit, alert and oriented x3 Musculoskeletal: no deformities Psychiatric: mood/affect appropriate, cooperative - Lab 05/07/19 03:42 05/07/19 07:34 Most recent lab results Calcium 9.3 mg/dl (8.6-10.4) 05/07/19 07:34 Phosphorus 1.9 mg/dL (2.7-4.5) L 05/07/19 07:34 Magnesium 1.8 mg/dL (1.6-2.5) 05/07/19 07:34 Assessment and Plan (1) Hyponatremia Cynthia Kirby is a 69-year-old female with hypertension, hyperlipidemia, hypothyroidism, diabetes mellitus type 2, presented to [facility] for confusion and falls and admitted to ICU on 05/06/19 for severe hyponatremia. Hyponatremia, present on arrival. Initially: severe (<120); likely chronic (>48 hours); symptomatic (nausea, vomiting, confusion); associated with gait instability, falls, cognitive dysfunction; not consistent with SIADH (Urine Sodium > 40, Urine Osmolality > 100). Progress: Serum sodium increased from 112 to 119 in the past 19 hours at the recomm ended rate for the initial correction. Overcorrection controlled with DDAVP and D5W. Hypokalemia resolved. Ravinia toxicity, resolved. Patient denies taking Ravinia, but used it in the past. Mental status and cognitive dysfunction improved. Recommendations: Target serum sodium elevation: 4-6 mEq/L. Monitor serum sodium about every 4-6 hours. Goal serum sodium of >130 mEq/L. Status: Acute Priority: High (2) Hypokalemia Status: Resolved Priority: High
[2019-05-07 09:16] LABS: Lithium Test < 0.1 mmol/L
[2019-05-07] MEDS: HEPARIN 5,000 UNIT/ML VIAL SQ SCH ×2 (09:33→20:15)
[2019-05-07] MEDS: FAMOTIDINE/PF 20 MG/2 ML VIAL IV SCH ×2 (09:36→20:14)
[2019-05-07] MEDS: THIAMINE 100 MG in 0.9 % SODIUM CHLORIDE 50 ML IV SCH (09:38)
[2019-05-07] MEDS ORDERED: NICOTINE 21 MG PATCH TOPICAL SCH (10:00)
[2019-05-07] MEDS ORDERED: NALOXONE HCL 0.4 MG/ML VIAL IV PRN (10:00)
[2019-05-07] MEDS ORDERED: DESMOPRESSIN ACETATE 2 MCG in 0.9 % SODIUM CHLORIDE 50 ML IV SCH ×2 (10:00→10:30)
[2019-05-07] MEDS ORDERED: NICOTINE POLACRILEX 2 MG GUM CHEW/PARK PRN (10:00)
[2019-05-07] MEDS ORDERED: ONDANSETRON 4 MG/2 ML VIAL IV PRN (10:00)
[2019-05-07] MEDS ORDERED: ACETAMINOPHEN 325 MG TABLET PO PRN (10:00)
--- NOTE | 2019-05-07 10:06 | Internal Med Progress Note ---
Medical - PN: Subj Patient information: Note initiated : 05/07/19 at 10:03 am Service Date, if different from initiated Date: [] Patient: Cynthia Kirby 69 y/o F admitted on 05/06/19 for Decreased LOC. Chief Complaint: [] Interval history: Ms. Kirby is a 69 year old F history of dementia, psychiatric disorders, pres ents to the emergency room for altered mental status and falls. Patient is unable to provide any meaningful history due to altered status, history is provided by the patient's caregiver. The patient has had a new caregiver approximately 2 weeks, she notes that she last saw the patient on Friday at which time patient was having some vomiting, the patient vomited 3 times in front of her. This morning the patient apparently called 911 but refused to come to the emergency room. When the caregiver went to see the patient she noted that the patient was on the floor and there was a broken piece of furniture in the house. Likely patient fell on the back. Patient was altered and unable to provide any history and therefore was brought to the emergency room. It seems like she was soiled in urine and possibly feces. On my evaluation patient is altered unable to provide any history she does re spond to verbal commands but is drowsy, GCS score is 10 patient is able to maintain her airway. She is afebrile heart rate 68 blood pressure 132/ 71 presentation saturating more than 90% on room air. She briefly dropped her blood pressure to 79/50 and was resuscitated with IV fluids. By the time I reached the emergency room patient's blood pressure was back to normal range CBC is pending, patient had low potassium of 2.8, sodium of 112 chloride 74 bicarbonate 26 BUN 4 creatinine 0.7 glucose 105 CK is 491 troponin is negative, EKG shows sinus rhythm nonspecific ST-T wave changes and PVCs. Head CT was reported as no acute changes Chest x-ray was negative. Given the fact this patient has low sodium values, altered patient is going to be admitted to the ICU for further management I have consulted nephrology to help me manage patient's hyponatremia 05/06 Patient seen and examined, no acute overnight events. Patient sodium is appropriately corrected at 19 to 20 hours there was overcorrection at 12 hours however this was controlled with the help of D5 water and DDAVP. 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 - Constitutional Vitals: Vital Signs Temp Pulse Resp BP Pulse Ox 98.8 F 74 20 160/93 98 05/07/19 07:01 05/07/19 08:41 05/07/19 08:41 05/07/19 08:32 05/07/19 08:41 Period Temp Pulse Resp BP Sys/Norris Pulse Ox Last 24 Hr 97.0 F-100.1 F 45-103 13-24 78-162/48-95 90-99 Intake and Output 05/06/19 05/07/19 05/07/19 21:59 05:59 13:59 Intake Total 1622.5 3080.75 2000 Output Total 5810 595 Balance -4187.5 2485.75 1999 Weight 175 lb 14.4 oz Intake & Output: Intake & Output 05/06/19 05/07/19 05/07/19 21:59 05:59 13:59 Intake Total 1622.5 3080.75 2000 Output Total 5810 595 Balance -4187.5 2485.75 1999 Weight 175 lb 14.4 oz Intake: IV 1422.5 2740.75 2000 Sodium Chloride 0.9% 1,000 ml @ 1000 Wide Open IV [facility] Rx#: [id number] Ddavp 5 Mcg In Sodium Chloride 50.5 51.25 0.9% 50 ml @ 200 mls/hr IV ONCE ONE Rx#:[id number] Dextrose 5% in Water 1,000 ml @ 2117 250 mls/hr IV .Q4H [facility] Rx#: [id number] Potassium Chloride 40 Meq In 271 Dextrose 5% in Water 500 ml @ 130 mls/hr IV ONCE ONE Rx#: [id number] Vitamin B1 100 mg In Sodium 51 Chloride 0.9% 50 ml @ 50 mls/hr IV DAILY [facility] Rx#:[id number] Oral 200 340 Output: Urine Catheter Amount 4610 595 Void Amount 1200 Other: Meal Dinner Nourishment/Supplement Percent of Meal Consumed 100% 100% Feeding Ability Independent Independent Nourishment/Supplement name Egg Salad with crackers Tuna and crackers Urine Appearance Clear Clear Fem Cath Clear Clear Urine Color Bright Yellow Dark Yellow Fem Cath Pale Dark Yellow Exam: Constitutional; Afebrile, cooperative, alert, not in distress. Respiratory system: Air Entry equal on both sides, No crackles or wheezing, no rhonchi. CVS- Rate rhythm regular, S1,S2 heard, no gallop, no rub. Abdomen- Soft nontender abdomen, no organomegaly, no tenderness, no guarding or rigidity, [employer]- AOOx2, moving all extremities, no gross focal deficit noted. Medical - PN: Obj Da - Labs CBC & Chem 7: 05/07/19 03:42 05/07/19 07:34 Labs: Abnormal Lab Results 05/07/19 05/07/19 05/07/19 07:34 07:34 03:42 WBC RBC 3.56 L Hgb 10.2 L Hct 31.0 L POC Hct 35.0 L MPV Gran % Lymph % (Auto) Gran # Lymph # (Auto) [place] # (Auto) POC PT POC Sodium 120 L Sodium 119 L* POC Potassium Potassium POC Chloride 85 L Chloride 84 L POC BUN < 3 L BUN 5 L Glucose POC Glucose Uric Acid POC WB Ioniz Calcium Phosphorus 1.9 L Total Bilirubin Total Creatine Kinase CK-MB (CK-2) Myoglobin Urine Osmolality [place] 05/07/19 05/06/19 05/06/19 01:59 23:44 21:07 WBC RBC Hgb Hct POC Hct MPV Gran % Lymph % (Auto) Gran # Lymph # (Auto) [place] # (Auto) POC PT POC Sodium 122 L 122 L 125 L Sodium POC Potassium 2.9 L* 2.4 L* Potassium POC Chloride 86 L 84 L 85 L Chloride POC BUN < 3 L < 3 L < 3 L BUN Glucose POC Glucose 140 H 178 H 179 H Uric Acid POC WB Ioniz Calcium Phosphorus Total Bilirubin Total Creatine Kinase CK-MB (CK-2) Myoglobin Urine Osmolality [place] 05/06/19 05/06/19 05/06/19 18:20 18:20 18:20 WBC RBC Hgb Hct POC Hct MPV Gran % Lymph % (Auto) Gran # Lymph # (Auto) [place] # (Auto) POC PT POC Sodium 121 L Sodium 121 L POC Potassium Potassium POC Chloride 85 L Chloride 85 L POC BUN < 3 L BUN 3 L Glucose 108 H POC Glucose 111 H Uric Acid POC WB Ioniz Calcium 1.14 L Phosphorus Total Bilirubin Total Creatine Kinase CK-MB (CK-2) Myoglobin Urine Osmolality [place] 2.3 H* 05/06/19 05/06/19 05/06/19 15:50 14:16 13:47 WBC 12.7 H RBC Hgb Hct POC Hct MPV 6.9 L Gran % 82.9 H Lymph % (Auto) 8.8 L Gran # 10.5 H Lymph # (Auto) 1.1 L [place] # (Auto) 1.0 H POC PT POC Sodium Sodium POC Potassium Potassium POC Chloride Chloride POC BUN BUN Glucose POC Glucose Uric Acid 1.0 L POC WB Ioniz Calcium Phosphorus Total Bilirubin Total Creatine Kinase CK-MB (CK-2) Myoglobin Urine Osmolality 60 L [place] 05/06/19 05/06/19 05/06/19 12:44 12:43 12:43 WBC RBC Hgb Hct POC Hct MPV Gran % Lymph % (Auto) Gran # Lymph # (Auto) [place] # (Auto) POC PT 11.7 L POC Sodium 110 L* Sodium 112 L* POC Potassium 2.8 L* Potassium 2.8 L* POC Chloride 73 L Chloride 74 L POC BUN < 3 L BUN 4 L Glucose POC Glucose 107 H Uric Acid POC WB Ioniz Calcium 1.14 L Phosphorus Total Bilirubin 1.1 H Total Creatine Kinase 491 H CK-MB (CK-2) 9.0 H Myoglobin 550 H Urine Osmolality [place] Meds: Medications Acetaminophen (Tylenol) 650 mg PO Q4-6HP PRN PRN Reason: PAIN/FEVER > 101 Famotidine (Pepcid) 20 mg IV Q12 [facility] Heparin Sodium (Porcine) (Heparin) 5,000 unit SQ Q12 [facility] Heparin Sodium (Porcine) (Heparin Flush) 2 ml IV Q12 [facility] Dextrose (Dextrose 5% In Water) 1,000 mls @ 200 mls/hr IV .Q5H [facility] Desmopressin Acetate 2 mcg/ (Sodium Chloride) 50.5 mls @ 200 mls/hr IV Q6H [facility] Naloxone HCl (Narcan) 0.1 mg IV Q2MIN PRN PRN Reason: Opiate Reversal Nicotine (Nicoderm) 21 mg TOPICAL DAILY@1000 [facility] Nicotine Polacrilex (Nicotine Gum) 4 mg CHEW/PARK Q2HP PRN PRN Reason: tobacco Ondansetron HCl (Zofran) 4 mg IV Q4-6HP PRN PRN Reason: Nausea And Vomiting Sodium Chloride (Saline Flush) 10 ml IV Q8 [facility] Sodium Chloride (Saline Flush) 10 ml IV Q12 [facility] Thiamine HCl (Vitamin B1) 100 mg PO HS [facility] Medical - PN: A/P - Time Spent With Patient Total time spent is greater than 50% in coordination of care (as documented) at patient's floor/unit and/or counseling patient: - Narrative A/P Narrative: A/P Metabolic Encephalopathy -due to low sodium, resolved now -treat underlying etiology -started pt on thiamine. 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 -given that patient has limited access to water, and normally functioning kidneys, her sodium is correcting, and goal is to slow the rate of correction. Hypokalemia -replace K, - Dementia -high risk of delirum, monitor, Psychosis -resume home meds once verfied. Nausea/Vomiting -CT negative. DM -glucose level seems well controlled, will monitor on bmp for now -will add SSI coverage if needed HTN -low bp recorded in ER, -hold bp meds till bp stable x 24hrs -will consider stopping hctz in bp medication as can contribute/cause hyponatremia. DVT hep sq Regular diet if able DNR code status Medical - PN: Qual - VTE Deep Vein Thrombosis/Pulmonary Embolism Present on Admission: No
[2019-05-07] MEDS: NICOTINE 21 MG PATCH TOPICAL SCH (10:34)
[2019-05-07 11:34] LABS: POC Blood Urea Nitrogen < 3 mg/dl (8-23); POC CO2 24 mmol/L (22-30); POC Calcium, Ionized 1.17 mmol/L (1.16-1.32); POC Chloride 82 mmol/L (96-108); POC Creatinine 0.8 mg/dl (0.6-1.1); POC Glucose, Random 106 mg/dL (70-105); POC Potassium 3.2 mmol/L (3.3-5.1); POC Sodium 118 mmol/L (133-145)
[2019-05-07] MEDS ORDERED: DESMOPRESSIN ACETATE 1 MCG in 0.9 % SODIUM CHLORIDE 50 ML IV SCH (18:00)
[2019-05-07 18:08] LABS: POC Blood Urea Nitrogen < 3 mg/dl (8-23); POC CO2 23 mmol/L (22-30); POC Calcium, Ionized 1.14 mmol/L (1.16-1.32); POC Chloride 81 mmol/L (96-108); POC Creatinine 0.6 mg/dl (0.6-1.1); POC Glucose, Random 162 mg/dL (70-105); POC Potassium 2.9 mmol/L (3.3-5.1); POC Sodium 116 mmol/L (133-145)
[2019-05-07] MEDS: THIAMINE 100 MG TABLET PO SCH (20:13)
[2019-05-07] MEDS: GABAPENTIN 100 MG CAPSULE PO SCH (20:13)
[2019-05-07] MEDS: QUEtiapine 100 MG TABLET PO SCH (20:13)
[2019-05-07] MEDS: LORazepam 1 MG TABLET PO SCH (20:14)
[2019-05-07] MEDS: traZODone HCL 50 MG TABLET PO SCH (20:15)
[2019-05-07] MEDS: LIOTHYRONINE 5 MCG TABLET PO SCH (21:01)
[2019-05-07 21:11] LABS: POC Blood Urea Nitrogen < 3 mg/dl (8-23); POC CO2 24 mmol/L (22-30); POC Calcium, Ionized 1.16 mmol/L (1.16-1.32); POC Chloride 84 mmol/L (96-108); POC Creatinine 0.6 mg/dl (0.6-1.1); POC Glucose, Random 105 mg/dL (70-105); POC Potassium 4.2 mmol/L (3.3-5.1); POC Sodium 117 mmol/L (133-145)
[2019-05-08 04:31] LABS: Basophils # (Auto) 0 K/mcL (0.0-0.3); Basophils % (Auto) 0.5 % (0.0-2.0); Eosinophils # (Auto) 0.1 K/mcL (0.0-0.7); Eosinophils % (Auto) 1.7 % (0.0-7.0); Granulocytes % (Auto) 53.4 % (38.0-78.0); Hematocrit 33.4 % (36.0-48.0); Hemoglobin 11.2 g/dL (12.0-15.0); Lymphocytes # (Auto) 2.5 K/mcL (1.5-4.8); Lymphocytes % (Auto) 35.6 % (15.5-49.0); Mean Cell Volume 85.8 fL (80.0-100.0); Mean Corpuscular HGB Conc 33.6 g/dL (31.0-36.0); Mean Platelet Volume 7.4 fL (7.4-10.4); Monocytes # (Auto) 0.6 K/mcL (0.1-0.9); Monocytes % (Auto) 8.8 % (1.0-12.0); Platelet Count 255 K/mcL (140-440); RBC 3.89 M/mcL (4.00-5.20); Red Cell Distribution Width 13.4 % (11.5-14.5); WBC 7.1 K/mcL (4.5-11.0)
[2019-05-08 05:02] LABS: Lithium Test < 0.1 mmol/L
[2019-05-08 05:03] LABS: ALT/SGPT 14 U/l (0-40); AST/SGOT 13 U/l (0-37); Albumin 3.3 gm/dL (3.2-5.2); Albumin/Globulin Ratio 1.3 (1.0-2.3); Alkaline Phosphatase 67 U/L (39-117); Bilirubin,Direct < 0.2 mg/dL (0.0-0.3); Bilirubin,Total 0.4 mg/dL (0.0-1.0); Blood Urea Nitrogen 3 mg/dl (8-23); Calcium 9.1 mg/dl (8.6-10.4); Carbon Dioxide 24 mmol/L (22-30); Chloride 85 mmol/L (96-108); Globulin 2.5 gm/dL (2.2-3.7); Glomerular Filtration Rate 93; Glucose 83 mg/dL (70-105); Lactate Dehydrogenase 142 U/L (94-250); Phosphorous 1.8 mg/dL (2.7-4.5); Triglycerides 125 mg/dl (<150); Uric Acid 2.4 mg/dL (2.5-8.0)
[2019-05-08] MEDS: 0.9 % SODIUM CHLORIDE 10 ML SYRINGE IV SCH ×6 (05:39→22:17)
[2019-05-08] MEDS: LEVOTHYROXINE 50 MCG TABLET PO SCH (07:21)
[2019-05-08] MEDS: OMEPRAZOLE 20 MG CAPSULE PO SCH (07:21)
[2019-05-08] MEDS: lamoTRIgine 100 MG TABLET PO SCH (08:42)
[2019-05-08] MEDS: QUEtiapine 25 MG TABLET PO SCH (08:42)
[2019-05-08] MEDS: HEPARIN 5,000 UNIT/ML VIAL SQ SCH ×2 (08:46→20:33)
[2019-05-08] MEDS: LORazepam 1 MG TABLET PO SCH ×2 (08:47→20:34)
[2019-05-08] MEDS: GABAPENTIN 100 MG CAPSULE PO SCH ×2 (08:47→20:33)
[2019-05-08] MEDS: FAMOTIDINE/PF 20 MG/2 ML VIAL IV SCH ×2 (08:47→20:34)
[2019-05-08] MEDS: NICOTINE 21 MG PATCH TOPICAL SCH (08:50)
--- NOTE | 2019-05-08 10:26 | Nephrology Progress Note ---
Subjective Patient information: Note initiated : 05/08/19 at 10:23 am Patient: Cynthia Kirby 69 y/o F admitted on 05/06/19 for Decreased LOC. Chief Complaint: Weakness Pertinent ROS: Weakness Whipple catheter Objective - Vital Signs Vital signs: Vital Signs Temp Resp BP BP Pulse Ox 05/08/19 09:21 16 05/08/19 08:01 97.6 F 11 L 148/75 95 05/08/19 04:39 15 05/08/19 04:01 97.9 F 17 99/68 98 05/08/19 00:01 15 104/63 05/08/19 00:00 98.5 F 18 104/63 95 05/07/19 20:49 24 H 05/07/19 20:01 98.1 F 21 154/81 95 05/07/19 17:34 24 H 140/98 94 05/07/19 16:07 23 H 05/07/19 16:01 97.2 F 22 140/98 100 05/07/19 12:27 18 05/07/19 12:01 97.8 F 20 149/87 97 05/07/19 12:00 97.3 F 18 149/87 93 05/07/19 11:30 21 Intake and Output 05/07/19 05/08/19 05/08/19 21:59 05:59 13:59 Intake Total 1146.25 100 Output Total 1989 725 Balance -843.75 -725 100 Intake: IV 50.25 Ddavp 1 Mcg In Sodium Chloride 50.25 0.9% 50 ml @ 200 mls/hr IV Q6H [facility] Rx#:[id number] Oral 1096 100 Output: Urine Catheter Amount 1989 725 Other: Meal Lunch Percent of Meal Consumed 25% Urine Appearance Clear Clear Urine Color Pale Pale Urine Odor Normal Stool Size Small Stool Color Brown Stool Consistency Soft Loose # of times incontinent of 1 Bowels Weight 184 lb 4.8 oz Intake & Output: Intake & Output 05/07/19 05/08/19 05/08/19 21:59 05:59 13:59 Intake Total 1146.25 100 Output Total 1989 725 Balance -843.75 -725 100 Weight 184 lb 4.8 oz Intake: IV 50.25 Ddavp 1 Mcg In Sodium Chloride 50.25 0.9% 50 ml @ 200 mls/hr IV Q6H [facility] Rx#:[id number] Oral 1096 100 Output: Urine Catheter Amount 1989 Other: Meal Lunch Percent of Meal Consumed 25% Urine Appearance Clear Clear Urine Color Pale Pale Urine Odor Normal Stool Size Small Stool Color Brown Stool Consistency Soft Loose # of times incontinent of 1 Bowels - General Appearance General appearance: fatigue EENT: mucous membranes moist Neck: supple Respiratory: clear Cardiology: no edema Gastrointestinal: no tenderness Integumentary: warm and dry Neurologic: no focal deficit, alert and oriented x3 Musculoskeletal: no deformities Psychiatric: mood/affect appropriate, cooperative - Lab 05/08/19 03:18 05/08/19 03:18 Most recent lab results Calcium 9.1 mg/dl (8.6-10.4) 05/08/19 03:18 Phosphorus 1.8 mg/dL (2.7-4.5) L 05/08/19 03:18 Magnesium 1.7 mg/dL (1.6-2.5) 05/08/19 03:18 Assessment and Plan (1) Hyponatremia Cynthia Kirby is a 69-year-old female with hypertension, hyperlipidemia, hypothyroidism, diabetes mellitus type 2, presented to [facility] for confusion and falls and admitted to ICU on 05/06/19 for severe hyponatremia. Hyponatremia, present on arrival. Initially: severe (<120); likely chronic (>48 hours); symptomatic (nausea, vomiting, confusion); associated with gait instability, falls, cognitive dysfunction; not consistent with SIADH (Urine Sodium > 40, Urine Osmolality > 100). Progress: Serum sodium decreased from 119 to 118 in the past 24 hours. Recommendations: Agree with discontinuation of DDAVP and IVF. Target serum sodium elevation: 4-6 mEq/L. Goal serum sodium of >130 mEq/L. Status: Acute Priority: High
--- NOTE | 2019-05-08 13:01 | Internal Med Progress Note ---
Medical - PN: Subj Patient information: Note initiated : 05/08/19 at 12:59 pm Service Date, if different from initiated Date: [] Patient: Cynthia Kirby 69 y/o F admitted on 05/06/19 for Decreased LOC. Chief Complaint: [] Interval history: Ms. Kirby is a 69 year old F history of dementia, psychiatric disorders, pres ents to the emergency room for altered mental status and falls. Patient is unable to provide any meaningful history due to altered status, history is provided by the patient's caregiver. The patient has had a new caregiver approximately 2 weeks, she notes that she last saw the patient on Friday at which time patient was having some vomiting, the patient vomited 3 times in front of her. This morning the patient apparently called 911 but refused to come to the emergency room. When the caregiver went to see the patient she noted that the patient was on the floor and there was a broken piece of furniture in the house. Likely patient fell on the back. Patient was altered and unable to provide any history and therefore was brought to the emergency room. It seems like she was soiled in urine and possibly feces. On my evaluation patient is altered unable to provide any history she does re spond to verbal commands but is drowsy, GCS score is 10 patient is able to maintain her airway. She is afebrile heart rate 68 blood pressure 132/ 71 presentation saturating more than 90% on room air. She briefly dropped her blood pressure to 79/50 and was resuscitated with IV fluids. By the time I reached the emergency room patient's blood pressure was back to normal range CBC is pending, patient had low potassium of 2.8, sodium of 112 chloride 74 bicarbonate 26 BUN 4 creatinine 0.7 glucose 105 CK is 491 troponin is negative, EKG shows sinus rhythm nonspecific ST-T wave changes and PVCs. Head CT was reported as no acute changes Chest x-ray was negative. Given the fact this patient has low sodium values, altered patient is going to be admitted to the ICU for further management I have consulted nephrology to help me manage patient's hyponatremia 05/06 Patient seen and examined, no acute overnight events. Patient sodium is appropriately corrected at 19 to 20 hours there was overcorrection at 12 hours however this was controlled with the help of D5 water and DDAVP. 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 diet well. Sodium is 118 today has remained stable since yesterday, we have discontinued the D5 water as well as a DDAVP now. We will trend sodium and hopefully we will be able to control the rise of sodium over the next 24 hours. Pertinent ROS: Constitutional; Afebrile, cooperative, alert, not in distress. Respiratory system: Air Entry equal on both sides, No crackles or wheezing, no rhonchi. CVS- Rate rhythm regular, S1,S2 heard, no gallop, no rub. Abdomen- Soft nontender abdomen, no organomegaly, no tenderness, no guarding or rigidity, [employer]- AOOx3, moving all extremities, no gross focal deficit noted. - Constitutional Vitals: Vital Signs Temp Pulse Resp BP Pulse Ox 97.6 F 73 16 148/75 95 05/08/19 08:01 05/07/19 09:01 05/08/19 09:21 05/08/19 08:01 05/08/19 08:01 Period Temp Pulse Resp BP Sys/Norris Pulse Ox Last 24 Hr 97.2 F-98.5 F - 99-154/63-98 94-100 Intake and Output 05/07/19 05/08/19 05/08/19 21:59 05:59 13:59 Intake Total 1146.25 100 Output Total 19895 Balance -843.75 -725 100 Weight 184 lb 4.8 oz Intake & Output: Intake & Output 05/07/19 05/08/19 05/08/19 21:59 05:59 13:59 Intake Total 1146.25 100 Output Total 19895 Balance -843.75 -725 100 Weight 184 lb 4.8 oz Intake: IV 50.25 Ddavp 1 Mcg In Sodium Chloride 50.25 0.9% 50 ml @ 200 mls/hr IV Q6H [facility] Rx#:[id number] Oral 1096 100 Output: Urine Catheter Amount 1989 725 Other: Meal Lunch Percent of Meal Consumed 25% Urine Appearance Clear Clear Urine Color Pale Pale Urine Odor Normal Stool Size Small Stool Color Brown Stool Consistency Soft Loose # of times incontinent of 1 Bowels Exam: Constitutional; Afebrile, cooperative, alert, not in distress. Eyes- No icterus, , No periorbital swelling Ears- Ext ear normal, hearing normal to conversation. Neck- Midline trachea, supple Respiratory system: Air Entry equal on both sides, No crackles or wheezing, no rhonchi. CVS- Rate rhythm regular, S1,S2 heard, no gallop, no rub. Abdomen- Soft nontender abdomen, no organomegaly, no tenderness, no guarding or rigidity, [employer]- AOOx3, moving all extremities, no gross focal deficit noted. Medical - PN: Obj Da - Labs CBC & Chem 7: 05/08/19 03:18 05/08/19 03:18 Labs: Abnormal Lab Results 05/08/19 05/08/19 05/07/19 03:18 03:18 20:58 WBC RBC 3.89 L Hgb 11.2 L Hct 33.4 L POC Hct MPV Gran % Lymph % (Auto) Gran # Lymph # (Auto) [place] # (Auto) POC PT POC Sodium 117 L* Sodium 118 L* POC Potassium Potassium POC Chloride 84 L Chloride 85 L POC BUN < 3 L BUN 3 L Glucose POC Glucose Uric Acid 2.4 L POC WB Ioniz Calcium Phosphorus 1.8 L Total Bilirubin Total Creatine Kinase CK-MB (CK-2) Myoglobin Total Protein 5.8 L Urine Osmolality [place] 05/07/19 05/07/19 05/07/19 17:54 11:27 07:34 WBC RBC Hgb Hct POC Hct 35.0 L 35.0 L MPV Gran % Lymph % (Auto) Gran # Lymph # (Auto) [place] # (Auto) POC PT POC Sodium 116 L* 118 L* 120 L Sodium POC Potassium 2.9 L* 3.2 L Potassium POC Chloride 81 L 82 L 85 L Chloride POC BUN < 3 L < 3 L < 3 L BUN Glucose POC Glucose 162 H 106 H Uric Acid POC WB Ioniz Calcium 1.14 L Phosphorus Total Bilirubin Total Creatine Kinase CK-MB (CK-2) Myoglobin Total Protein Urine Osmolality [place] 05/07/19 05/07/19 05/07/19 07:34 03:42 01:59 WBC RBC 3.56 L Hgb 10.2 L Hct 31.0 L POC Hct MPV Gran % Lymph % (Auto) Gran # Lymph # (Auto) [place] # (Auto) POC PT POC Sodium 122 L Sodium 119 L* POC Potassium Potassium POC Chloride 86 L Chloride 84 L POC BUN < 3 L BUN 5 L Glucose POC Glucose 140 H Uric Acid POC WB Ioniz Calcium Phosphorus 1.9 L Total Bilirubin Total Creatine Kinase CK-MB (CK-2) Myoglobin Total Protein Urine Osmolality [place] 05/06/19 05/06/19 05/06/19 23:44 21:07 18:20 WBC RBC Hgb Hct POC Hct MPV Gran % Lymph % (Auto) Gran # Lymph # (Auto) [place] # (Auto) POC PT POC Sodium 122 L 125 L 121 L Sodium POC Potassium 2.9 L* 2.4 L* Potassium POC Chloride 84 L 85 L 85 L Chloride POC BUN < 3 L < 3 L < 3 L BUN Glucose POC Glucose 178 H 179 H 111 H Uric Acid POC WB Ioniz Calcium 1.14 L Phosphorus Total Bilirubin Total Creatine Kinase CK-MB (CK-2) Myoglobin Total Protein Urine Osmolality [place] 05/06/19 05/06/19 05/06/19 18:20 18:20 15:50 WBC RBC Hgb Hct POC Hct MPV Gran % Lymph % (Auto) Gran # Lymph # (Auto) [place] # (Auto) POC PT POC Sodium Sodium 121 L POC Potassium Potassium POC Chloride Chloride 85 L POC BUN BUN 3 L Glucose 108 H POC Glucose Uric Acid 1.0 L POC WB Ioniz Calcium Phosphorus Total Bilirubin Total Creatine Kinase CK-MB (CK-2) Myoglobin Total Protein Urine Osmolality [place] 2.3 H* 05/06/19 05/06/19 05/06/19 14:16 13:47 12:44 WBC 12.7 H RBC Hgb Hct POC Hct MPV 6.9 L Gran % 82.9 H Lymph % (Auto) 8.8 L Gran # 10.5 H Lymph # (Auto) 1.1 L [place] # (Auto) 1.0 H POC PT POC Sodium Sodium POC Potassium Potassium POC Chloride Chloride POC BUN BUN Glucose POC Glucose Uric Acid POC WB Ioniz Calcium Phosphorus Total Bilirubin Total Creatine Kinase CK-MB (CK-2) 9.0 H Myoglobin Total Protein Urine Osmolality 60 L [place] 05/06/19 05/06/19 12:43 12:43 WBC RBC Hgb Hct POC Hct MPV Gran % Lymph % (Auto) Gran # Lymph # (Auto) [place] # (Auto) POC PT 11.7 L POC Sodium 110 L* Sodium 112 L* POC Potassium 2.8 L* Potassium 2.8 L* POC Chloride 73 L Chloride 74 L POC BUN < 3 L BUN 4 L Glucose POC Glucose 107 H Uric Acid POC WB Ioniz Calcium 1.14 L Phosphorus Total Bilirubin 1.1 H Total Creatine Kinase 491 H CK-MB (CK-2) Myoglobin 550 H Total Protein Urine Osmolality [place] Meds: Medications Acetaminophen (Tylenol) 650 mg PO Q4-6HP PRN PRN Reason: PAIN/FEVER > 101 Famotidine (Pepcid) 20 mg IV Q12 [facility] Last Admin: 05/08/19 08:47 Dose: 20 mg Documented by: Gabapentin (Neurontin) 100 mg PO BID [facility] Last Admin: 05/08/19 08:47 Dose: 100 mg Documented by: Heparin Sodium (Porcine) (Heparin) 5,000 unit SQ Q12 [facility] Last Admin: 05/08/19 08:46 Dose: 5,000 unit Documented by: Heparin Sodium (Porcine) (Heparin Flush) 2 ml IV Q12 [facility] Last Admin: 05/08/19 08:47 Dose: 2 ml Documented by: Lamotrigine (Lamictal) 200 mg PO DAILY [facility] Last Admin: 05/08/19 08:42 Dose: 200 mg Documented by: Levothyroxine Sodium (Synthroid) 50 mcg PO QAMAC [facility] Last Admin: 05/08/19 07:21 Dose: 50 mcg Documented by: Liothyronine Sodium (Cytomel) 12.5 mcg PO HS [facility] Last Admin: 05/07/19 21:01 Dose: 12.5 mcg Documented by: Lorazepam (Ativan) 1 mg PO BID [facility] Last Admin: 05/08/19 08:47 Dose: 1 mg Documented by: Naloxone HCl (Narcan) 0.1 mg IV Q2MIN PRN PRN Reason: Opiate Reversal Nicotine (Nicoderm) 21 mg TOPICAL DAILY@1000 [facility] Last Admin: 05/08/19 08:50 Dose: 21 mg Documented by: Nicotine Polacrilex (Nicotine Gum) 4 mg CHEW/PARK Q2HP PRN PRN Reason: tobacco Omeprazole (Prilosec) 20 mg PO ACB [facility] Last Admin: 05/08/19 07:21 Dose: 20 mg Documented by: Ondansetron HCl (Zofran) 4 mg IV Q4-6HP PRN PRN Reason: Nausea And Vomiting Last Admin: 05/07/19 19:26 Dose: 4 mg Documented by: Quetiapine Fumarate (Seroquel) 50 mg PO DAILY [facility] Last Admin: 05/08/19 08:42 Dose: 50 mg Documented by: Quetiapine Fumarate (Seroquel) 400 mg PO [facility] Last Admin: 05/07/19 20:13 Dose: 400 mg Documented by: Sodium Chloride (Saline Flush) 10 ml IV Q8 [facility] Last Admin: 05/08/19 09:38 Dose: 10 ml Documented by: Sodium Chloride (Saline Flush) 10 ml IV Q12 [facility] Last Admin: 05/08/19 09:00 Dose: 10 ml Documented by: Thiamine HCl (Vitamin B1) 100 mg PO [facility] Last Admin: 05/07/19 20:13 Dose: 100 mg Documented by: Trazodone HCl (Desyrel) 50 mg PO [facility] Last Admin: 05/07/19 20:15 Dose: 50 mg Documented by: Medical - PN: A/P - Time Spent With Patient Total time spent is greater than 50% in coordination of care (as documented) at patient's floor/unit and/or counseling patient: - Narrative A/P Narrative: A/P Metabolic Encephalopathy -due to low sodium, resolved now -treat underlying etiology -started pt on thiamine. 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 DM -glucose level seems well controlled, will monitor on bmp for now -will add SSI coverage if needed HTN -BP stable -home meds on hold, pt on losartan hctz, -bp appears stable for now DVT hep sq Regular diet if able DNR code status Medical - PN: Qual - VTE Deep Vein Thrombosis/Pulmonary Embolism Present on Admission: No
[2019-05-08] MEDS ORDERED: LOSARTAN 50 MG TABLET PO SCH (13:02)
[2019-05-08 13:26] LABS: POC Blood Urea Nitrogen < 3 mg/dl (8-23); POC CO2 26 mmol/L (22-30); POC Calcium, Ionized 1.27 mmol/L (1.16-1.32); POC Chloride 86 mmol/L (96-108); POC Creatinine 0.8 mg/dl (0.6-1.1); POC Glucose, Random 114 mg/dL (70-105); POC Potassium 4.1 mmol/L (3.3-5.1); POC Sodium 120 mmol/L (133-145)
[2019-05-08] MEDS ORDERED: CEFEPIME 1 GM VIAL IV SCH (15:15)
[2019-05-08] MEDS: AZTREONAM 1 GM VIAL IV SCH (15:45)
[2019-05-08 18:33] LABS: Appearance,Urine CLEAR; Bacteria,Urine 0 /hpf (0); Bilirubin,Urine NEG (NEG); Color,Urine COLORLESS; Culture Indicated,Urine NO; Glucose,Urine (UA) NEGATIVE (NEG); Ketones,Urine NEG (NEG); Leukocyte Esterase,Urine NEG /uL (NEG); Nitrate,Urine NEG (NEG); Protein,Urine NEG (NEG); Specific Gravity,Urine 1.001 (1.000-1.035); Urine Blood 0.2 mg/dL (<0.03); Urine RBC < 1 /hpf (0-1); Urine Squamous Epithelial Cell 0 /hpf (0-4); Urine WBC 0 /hpf (0-4); Urobilinogen,Urine NEG (NEG)
[2019-05-08 20:20] LABS: POC Blood Urea Nitrogen 6 mg/dl (8-23); POC CO2 26 mmol/L (22-30); POC Calcium, Ionized 1.28 mmol/L (1.16-1.32); POC Chloride 92 mmol/L (96-108); POC Glucose, Random 94 mg/dL (70-105); POC Sodium 126 mmol/L (133-145)
[2019-05-08] MEDS: LIOTHYRONINE 5 MCG TABLET PO SCH (20:31)
[2019-05-08] MEDS: QUEtiapine 100 MG TABLET PO SCH (20:33)
[2019-05-08] MEDS: THIAMINE 100 MG TABLET PO SCH (20:34)
[2019-05-08] MEDS: traZODone HCL 50 MG TABLET PO SCH (20:34)
[2019-05-09] MEDS: AZTREONAM 1 GM VIAL IV SCH ×4 (00:27→22:49)
[2019-05-09 05:22] LABS: Basophils # (Auto) 0 K/mcL (0.0-0.3); Basophils % (Auto) 0.3 % (0.0-2.0); Eosinophils # (Auto) 0.1 K/mcL (0.0-0.7); Eosinophils % (Auto) 1.5 % (0.0-7.0); Granulocytes % (Auto) 51.2 % (38.0-78.0); Hematocrit 36.3 % (36.0-48.0); Lymphocytes # (Auto) 2.5 K/mcL (1.5-4.8); Lymphocytes % (Auto) 38.6 % (15.5-49.0); Mean Cell Volume 86.7 fL (80.0-100.0); Mean Platelet Volume 7.4 fL (7.4-10.4); Monocytes # (Auto) 0.5 K/mcL (0.1-0.9); Monocytes % (Auto) 8.4 % (1.0-12.0); Platelet Count 279 K/mcL (140-440); RBC 4.19 M/mcL (4.00-5.20); Red Cell Distribution Width 13.6 % (11.5-14.5); WBC 6.4 K/mcL (4.5-11.0)
[2019-05-09 05:48] LABS: ALT/SGPT 15 U/l (0-40); AST/SGOT 12 U/l (0-37); Albumin 3.7 gm/dL (3.2-5.2); Albumin/Globulin Ratio 1.4 (1.0-2.3); Alkaline Phosphatase 74 U/L (39-117); Bilirubin,Direct < 0.2 mg/dL (0.0-0.3); Bilirubin,Total 0.3 mg/dL (0.0-1.0); Blood Urea Nitrogen 6 mg/dl (8-23); Calcium 9.9 mg/dl (8.6-10.4); Carbon Dioxide 27 mmol/L (22-30); Chloride 98 mmol/L (96-108); Globulin 2.6 gm/dL (2.2-3.7); Glomerular Filtration Rate 65; Glucose 82 mg/dL (70-105); Lactate Dehydrogenase 156 U/L (94-250); Phosphorous 2.4 mg/dL (2.7-4.5); Triglycerides 132 mg/dl (<150); Uric Acid 3.2 mg/dL (2.5-8.0)
[2019-05-09] MEDS: 0.9 % SODIUM CHLORIDE 10 ML SYRINGE IV SCH ×5 (06:00→22:49)
--- NOTE | 2019-05-09 07:54 | Nephrology Progress Note ---
Subjective Patient information: Note initiated : 05/09/19 at 7:51 am Patient: Cynthia Kirby 69 y/o F admitted on 05/06/19 for Decreased LOC. Chief Complaint: Weakness Pertinent ROS: Weakness No edema Whipple catheter Objective - Vital Signs Vital signs: Vital Signs Temp Pulse Resp BP BP Pulse Ox 05/09/19 04:00 98 F 93 H 18 113/74 96 05/08/19 23:21 98.8 F 79 20 105/70 98 05/08/19 18:52 99.9 F H 88 18 136/96 98 05/08/19 17:26 23 H 05/08/19 17:24 17 137/69 05/08/19 09:21 16 05/08/19 08:01 97.6 F 11 L 148/75 95 Intake and Output 05/08/19 05/09/19 05/09/19 21:59 05:59 13:59 Intake Total 600 150 Output Total 1800 4075 Balance -1200 -3925 Intake: Oral 600 150 Output: Urine Catheter Amount 1800 4075 Other: Urine Appearance Cloudy Urine Color Pale Bright Yellow Urine Odor Strong Weight 186 lb 4.8 oz Intake & Output: Intake & Output 05/08/19 05/09/19 05/09/19 21:59 05:59 13:59 Intake Total 600 150 Output Total 1800 4075 Balance -1200 -3925 Weight 186 lb 4.8 oz Intake: Oral 600 150 Output: Urine Catheter Amount 1800 4075 Other: Urine Appearance Cloudy Urine Color Pale Bright Yellow Urine Odor Strong - General Appearance General appearance: fatigue EENT: mucous membranes moist Neck: supple Respiratory: clear Cardiology: no edema Gastrointestinal: no tenderness Integumentary: warm and dry Neurologic: no focal deficit, alert and oriented x3 Musculoskeletal: no deformities Psychiatric: mood/affect appropriate, cooperative - Lab 05/09/19 03:18 05/09/19 03:18 Most recent lab results Calcium 9.9 mg/dl (8.6-10.4) 05/09/19 03:18 Phosphorus 2.4 mg/dL (2.7-4.5) L 05/09/19 03:18 Magnesium 2.1 mg/dL (1.6-2.5) 05/09/19 03:18 Assessment and Plan (1) Hyponatremia Cynthia Kirby is a 69-year-old female with hypertension, hyperlipidemia, hypothyroidism, diabetes mellitus type 2, presented to [facility] for confusion and falls and admitted to ICU on 05/06/19 for severe hyponatremia. Hyponatremia, present on arrival. Initially: severe (<120); likely chronic (>48 hours); symptomatic (nausea, vomiting, confusion); associated with gait instability, falls, cognitive dysfunction; not consistent with SIADH (Urine Sodium > 40, Urine Osmolality > 100), resolved. Progress: Serum sodium decreased from 120 to 134 in the past 24 hours. Recommendations: Considering rapid correction occurred when serum sodium was above 120, unlikely to have a negative effect. Fluid restriction discontinued. Nephrology will sign off. Status: Resolved Priority: High
[2019-05-09] MEDS: OMEPRAZOLE 20 MG CAPSULE PO SCH (08:21)
[2019-05-09] MEDS: LEVOTHYROXINE 50 MCG TABLET PO SCH (08:21)
[2019-05-09] MEDS: GABAPENTIN 100 MG CAPSULE PO SCH ×2 (08:28→20:08)
[2019-05-09] MEDS: LORazepam 1 MG TABLET PO SCH ×2 (08:28→20:08)
[2019-05-09] MEDS: QUEtiapine 25 MG TABLET PO SCH (08:28)
[2019-05-09] MEDS: FAMOTIDINE/PF 20 MG/2 ML VIAL IV SCH ×2 (08:29→20:08)
[2019-05-09] MEDS: HEPARIN 5,000 UNIT/ML VIAL SQ SCH ×2 (08:29→20:08)
[2019-05-09] MEDS: NICOTINE 21 MG PATCH TOPICAL SCH (08:46)
[2019-05-09] MEDS: lamoTRIgine 100 MG TABLET PO SCH (09:01)
[2019-05-09] MEDS ORDERED: ACETAMINOPHEN 325 MG TABLET PO PRN (11:29)
[2019-05-09] MEDS ORDERED: ONDANSETRON 4 MG/2 ML VIAL IV PRN (11:29)
[2019-05-09] MEDS ORDERED: NICOTINE POLACRILEX 2 MG GUM CHEW/PARK PRN (11:29)
[2019-05-09] MEDS ORDERED: NALOXONE HCL 0.4 MG/ML VIAL IV PRN (11:29)
--- NOTE | 2019-05-09 11:50 | Internal Med Progress Note ---
Medical - PN: Subj Patient information: Note initiated : 05/09/19 at 11:47 am Service Date, if different from initiated Date: [] Patient: Cynthia Kirby 69 y/o F admitted on 05/06/19 for Decreased LOC. Chief Complaint: [] Interval history: Ms. Kirby is a 69 year old F history of dementia, psychiatric disorders, pres ents to the emergency room for altered mental status and falls. Patient is unable to provide any meaningful history due to altered status, history is provided by the patient's caregiver. The patient has had a new caregiver approximately 2 weeks, she notes that she last saw the patient on Friday at which time patient was having some vomiting, the patient vomited 3 times in front of her. This morning the patient apparently called 911 but refused to come to the emergency room. When the caregiver went to see the patient she noted that the patient was on the floor and there was a broken piece of furniture in the house. Likely patient fell on the back. Patient was altered and unable to provide any history and therefore was brought to the emergency room. It seems like she was soiled in urine and possibly feces. On my evaluation patient is altered unable to provide any history she does re spond to verbal commands but is drowsy, GCS score is 10 patient is able to maintain her airway. She is afebrile heart rate 68 blood pressure 132/ 71 presentation saturating more than 90% on room air. She briefly dropped her blood pressure to 79/50 and was resuscitated with IV fluids. By the time I reached the emergency room patient's blood pressure was back to normal range CBC is pending, patient had low potassium of 2.8, sodium of 112 chloride 74 bicarbonate 26 BUN 4 creatinine 0.7 glucose 105 CK is 491 troponin is negative, EKG shows sinus rhythm nonspecific ST-T wave changes and PVCs. Head CT was reported as no acute changes Chest x-ray was negative. Given the fact this patient has low sodium values, altered patient is going to be admitted to the ICU for further management I have consulted nephrology to help me manage patient's hyponatremia 05/07 Patient seen and examined, no acute overnight events. Patient sodium is appropriately corrected at 19 to 20 hours there was overcorrection at 12 hours however this was controlled with the help of D5 water and DDAVP. 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 diet well. Sodium is 118 today has remained stable since yesterday, we have discontinued the D5 water as well as a DDAVP now. We will trend sodium and hopefully we will be able to control the rise of sodium over the next 24 hours. 05/09 Patient seen and examined, no acute overnight events. Blood cultures had one bottle growing gram-negative bacillus source unknown patient started on aztreonam. Patient sodium level is back to normal now, patient had slightly more rapid correction than anticipated however the patient's sodium level was around 120 at that time. According to nephrology low risk for having any adverse reaction at this time. Fluid restrictions have been removed by nephrology we will monitor the patient. Stable for transfer to [facility] status patient remains anxious wants to go home as she is unable to contact her son it seems that the home phone is not functioning Adult Protective Services are involved in patient's care, Pertinent ROS: Denies headache, dizziness Denies chest pain, palpitations Denies cough or shortness of breath Denies abdominal pain, nausea or vomiting. - Constitutional Vitals: Vital Signs Temp Pulse Resp BP Pulse Ox 97.4 F 93 H 16 145/90 97 05/09/19 08:00 05/09/19 04:00 05/09/19 08:00 05/09/19 08:00 05/09/19 08:00 Period Temp Pulse Resp BP Sys/Norris Pulse Ox Last 24 Hr 97.4 F-99.9 F 79-93 16-23 105-145/69-96 96-98 Intake and Output 05/08/19 05/09/19 05/09/19 21:59 05:59 13:59 Intake Total 600 150 Output Total 1800 4075 Balance -1200 -3925 Weight 186 lb 4.8 oz Intake & Output: Intake & Output 05/08/19 05/09/19 05/09/19 21:59 05:59 13:59 Intake Total 600 150 Output Total 1800 4075 Balance -1200 -3925 Weight 186 lb 4.8 oz Intake: Oral 600 150 Output: Urine Catheter Amount 1800 4075 Other: Meal Breakfast Percent of Meal Consumed 50% Feeding Ability Independent Urine Appearance Cloudy Urine Color Pale Bright Yellow Urine Odor Strong Exam: Constitutional; Afebrile, cooperative, alert, not in distress. Respiratory system: Air Entry equal on both sides, No crackles or wheezing, no rhonchi. CVS- Rate rhythm regular, S1,S2 heard, no gallop, no rub. 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 Medical - PN: Obj Da - Labs CBC & Chem 7: 05/09/19 03:18 05/09/19 03:18 Labs: Abnormal Lab Results 05/09/19 05/08/19 05/08/19 03:18 20:07 17:41 WBC RBC Hgb Hct POC Hct 33.0 L MPV Gran % Lymph % (Auto) Gran # Lymph # (Auto) [place] # (Auto) POC PT POC Sodium 126 L Sodium POC Potassium Potassium POC Chloride 92 L Chloride POC BUN 6 L BUN 6 L Glucose POC Glucose Uric Acid POC WB Ioniz Calcium Phosphorus 2.4 L Total Bilirubin Total Creatine Kinase CK-MB (CK-2) Myoglobin Total Protein Urine Occult Blood 0.2 A Urine Osmolality [place] 05/08/19 05/08/19 05/08/19 13:13 03:18 03:18 WBC RBC 3.89 L Hgb 11.2 L Hct 33.4 L POC Hct MPV Gran % Lymph % (Auto) Gran # Lymph # (Auto) [place] # (Auto) POC PT POC Sodium 120 L Sodium 118 L* POC Potassium Potassium POC Chloride 86 L Chloride 85 L POC BUN < 3 L BUN 3 L Glucose POC Glucose 114 H Uric Acid 2.4 L POC WB Ioniz Calcium Phosphorus 1.8 L Total Bilirubin Total Creatine Kinase CK-MB (CK-2) Myoglobin Total Protein 5.8 L Urine Occult Blood Urine Osmolality [place] 05/07/19 05/07/19 05/07/19 20:58 17:54 11:27 WBC RBC Hgb Hct POC Hct 35.0 L MPV Gran % Lymph % (Auto) Gran # Lymph # (Auto) [place] # (Auto) POC PT POC Sodium 117 L* 116 L* 118 L* Sodium POC Potassium 2.9 L* 3.2 L Potassium POC Chloride 84 L 81 L 82 L Chloride POC BUN < 3 L < 3 L < 3 L BUN Glucose POC Glucose 162 H 106 H Uric Acid POC WB Ioniz Calcium 1.14 L Phosphorus Total Bilirubin Total Creatine Kinase CK-MB (CK-2) Myoglobin Total Protein Urine Occult Blood Urine Osmolality [place] 05/07/19 05/07/19 05/07/19 07:34 07:34 03:42 WBC RBC 3.56 L Hgb 10.2 L Hct 31.0 L POC Hct 35.0 L MPV Gran % Lymph % (Auto) Gran # Lymph # (Auto) [place] # (Auto) POC PT POC Sodium 120 L Sodium 119 L* POC Potassium Potassium POC Chloride 85 L Chloride 84 L POC BUN < 3 L BUN 5 L Glucose POC Glucose Uric Acid POC WB Ioniz Calcium Phosphorus 1.9 L Total Bilirubin Total Creatine Kinase CK-MB (CK-2) Myoglobin Total Protein Urine Occult Blood Urine Osmolality [place] 05/07/19 05/06/19 05/06/19 01:59 23:44 21:07 WBC RBC Hgb Hct POC Hct MPV Gran % Lymph % (Auto) Gran # Lymph # (Auto) [place] # (Auto) POC PT POC Sodium 122 L 122 L 125 L Sodium POC Potassium 2.9 L* 2.4 L* Potassium POC Chloride 86 L 84 L 85 L Chloride POC BUN < 3 L < 3 L < 3 L BUN Glucose POC Glucose 140 H 178 H 179 H Uric Acid POC WB Ioniz Calcium Phosphorus Total Bilirubin Total Creatine Kinase CK-MB (CK-2) Myoglobin Total Protein Urine Occult Blood Urine Osmolality [place] 05/06/19 05/06/19 05/06/19 18:20 18:20 18:20 WBC RBC Hgb Hct POC Hct MPV Gran % Lymph % (Auto) Gran # Lymph # (Auto) [place] # (Auto) POC PT POC Sodium 121 L Sodium 121 L POC Potassium Potassium POC Chloride 85 L Chloride 85 L POC BUN < 3 L BUN 3 L Glucose 108 H POC Glucose 111 H Uric Acid POC WB Ioniz Calcium 1.14 L Phosphorus Total Bilirubin Total Creatine Kinase CK-MB (CK-2) Myoglobin Total Protein Urine Occult Blood Urine Osmolality [place] 2.3 H* 05/06/19 05/06/19 05/06/19 15:50 14:16 13:47 WBC 12.7 H RBC Hgb Hct POC Hct MPV 6.9 L Gran % 82.9 H Lymph % (Auto) 8.8 L Gran # 10.5 H Lymph # (Auto) 1.1 L [place] # (Auto) 1.0 H POC PT POC Sodium Sodium POC Potassium Potassium POC Chloride Chloride POC BUN BUN Glucose POC Glucose Uric Acid 1.0 L POC WB Ioniz Calcium Phosphorus Total Bilirubin Total Creatine Kinase CK-MB (CK-2) Myoglobin Total Protein Urine Occult Blood Urine Osmolality 60 L [place] 05/06/19 05/06/19 05/06/19 12:44 12:43 12:43 WBC RBC Hgb Hct POC Hct MPV Gran % Lymph % (Auto) Gran # Lymph # (Auto) [place] # (Auto) POC PT 11.7 L POC Sodium 110 L* Sodium 112 L* POC Potassium 2.8 L* Potassium 2.8 L* POC Chloride 73 L Chloride 74 L POC BUN < 3 L BUN 4 L Glucose POC Glucose 107 H Uric Acid POC WB Ioniz Calcium 1.14 L Phosphorus Total Bilirubin 1.1 H Total Creatine Kinase 491 H CK-MB (CK-2) 9.0 H Myoglobin 550 H Total Protein Urine Occult Blood Urine Osmolality [place] Meds: Medications Acetaminophen (Tylenol) 650 mg PO Q4-6HP PRN PRN Reason: PAIN/FEVER > 101 Aztreonam (Azactam) 1 gm IV Q8H YG; Protocol Famotidine (Pepcid) 20 mg IV Q12 [facility] Gabapentin (Neurontin) 100 mg PO BID [facility] Heparin Sodium (Porcine) (Heparin) 5,000 unit SQ Q12 [facility] Heparin Sodium (Porcine) (Heparin Flush) 2 ml IV Q12 [facility] Lamotrigine (Lamictal) 200 mg PO DAILY YG Levothyroxine Sodium (Synthroid) 50 mcg PO QAMAC [facility] Liothyronine Sodium (Cytomel) 12.5 mcg PO HS YG Lorazepam (Ativan) 1 mg PO BID [facility] Naloxone HCl (Narcan) 0.1 mg IV Q2MIN PRN PRN Reason: Opiate Reversal Nicotine (Nicoderm) 21 mg TOPICAL DAILY@1000 [facility] Nicotine Polacrilex (Nicotine Gum) 4 mg CHEW/PARK Q2HP PRN PRN Reason: tobacco Omeprazole (Prilosec) 20 mg PO ACB [facility] Ondansetron HCl (Zofran) 4 mg IV Q4-6HP PRN PRN Reason: Nausea And Vomiting Quetiapine Fumarate (Seroquel) 50 mg PO DAILY YG Quetiapine Fumarate (Seroquel) 400 mg PO HS YG Sodium Chloride (Saline Flush) 10 ml IV Q8 YG Sodium Chloride (Saline Flush) 10 ml IV Q12 YG Thiamine HCl (Vitamin B1) 100 mg PO HS YG Trazodone HCl (Desyrel) 50 mg PO HS YG Medical - PN: A/P - Time Spent With Patient Total time spent is greater than 50% in coordination of care (as documented) at patient's floor/unit and/or counseling patient: - Narrative A/P Narrative: A/P Metabolic Encephalopathy -due to low sodium, resolved now -started pt on thiamine. 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 -off fluid restriction -monitor sodium levels Hypokalemia -replace K, -K stable today Dementia -high risk of delirum, monitor, stable so far Psychosis -resumed home meds , stable, but remains anxious, Nausea/Vomiting -CT negative. DM -glucose level seems well controlled, will monitor on bmp for now -will add SSI coverage if needed HTN -BP stable -home meds on hold, pt on losartan hctz, -bp appears stable for now DVT hep sq Regular diet if able DNR code status Medical - PN: Qual - VTE Deep Vein Thrombosis/Pulmonary Embolism Present on Admission: No
[2019-05-09] MEDS ORDERED: LOSARTAN 50 MG TABLET PO ONE (20:31)
[2019-05-09] MEDS ORDERED: cloNIDine HCL 0.1 MG TABLET PO PRN (20:32)
[2019-05-09] MEDS ORDERED: LIOTHYRONINE 5 MCG TABLET PO SCH (21:00)
[2019-05-09] MEDS ORDERED: QUEtiapine 100 MG TABLET PO SCH (21:00)
[2019-05-09] MEDS ORDERED: THIAMINE 100 MG TABLET PO SCH (21:00)
[2019-05-09] MEDS ORDERED: traZODone HCL 50 MG TABLET PO SCH (21:00)
[2019-05-10] MEDS: 0.9 % SODIUM CHLORIDE 10 ML SYRINGE IV SCH ×4 (05:37→15:17)
[2019-05-10] MEDS: AZTREONAM 1 GM VIAL IV SCH ×2 (05:37→15:17)
[2019-05-10 06:04] LABS: Basophils # (Auto) 0.1 K/mcL (0.0-0.3); Basophils % (Auto) 0.9 % (0.0-2.0); Eosinophils # (Auto) 0.2 K/mcL (0.0-0.7); Eosinophils % (Auto) 3.2 % (0.0-7.0); Granulocytes % (Auto) 51.5 % (38.0-78.0); Hematocrit 33.8 % (36.0-48.0); Hemoglobin 11.3 g/dL (12.0-15.0); Lymphocytes # (Auto) 2.5 K/mcL (1.5-4.8); Lymphocytes % (Auto) 36.8 % (15.5-49.0); Mean Cell Volume 84.5 fL (80.0-100.0); Mean Corpuscular HGB Conc 33.5 g/dL (31.0-36.0); Mean Platelet Volume 7.3 fL (7.4-10.4); Monocytes # (Auto) 0.5 K/mcL (0.1-0.9); Monocytes % (Auto) 7.6 % (1.0-12.0); Platelet Count 288 K/mcL (140-440); Red Cell Distribution Width 13.2 % (11.5-14.5); WBC 6.9 K/mcL (4.5-11.0)
[2019-05-10 06:28] LABS: ALT/SGPT 15 U/l (0-40); AST/SGOT 11 U/l (0-37); Albumin 3.6 gm/dL (3.2-5.2); Albumin/Globulin Ratio 1.4 (1.0-2.3); Alkaline Phosphatase 72 U/L (39-117); Bilirubin,Direct < 0.2 mg/dL (0.0-0.3); Bilirubin,Total 0.2 mg/dL (0.0-1.0); Blood Urea Nitrogen 6 mg/dl (8-23); Calcium 9.6 mg/dl (8.6-10.4); Carbon Dioxide 27 mmol/L (22-30); Chloride 96 mmol/L (96-108); Globulin 2.6 gm/dL (2.2-3.7); Glomerular Filtration Rate 75; Glucose 91 mg/dL (70-105); Lactate Dehydrogenase 148 U/L (94-250); Phosphorous 3.4 mg/dL (2.7-4.5); Triglycerides 103 mg/dl (<150); Uric Acid 3.3 mg/dL (2.5-8.0)
[2019-05-10] MEDS ORDERED: POTASSIUM CHLORIDE 20 MEQ PACKET PO ONE (07:29)
[2019-05-10] MEDS ORDERED: LEVOTHYROXINE 50 MCG TABLET PO SCH (07:30)
[2019-05-10] MEDS ORDERED: OMEPRAZOLE 20 MG CAPSULE PO SCH (07:30)
[2019-05-10] MEDS: LORazepam 1 MG TABLET PO SCH (08:14)
[2019-05-10] MEDS: GABAPENTIN 100 MG CAPSULE PO SCH (08:14)
[2019-05-10] MEDS: HEPARIN 5,000 UNIT/ML VIAL SQ SCH (08:15)
[2019-05-10] MEDS: FAMOTIDINE/PF 20 MG/2 ML VIAL IV SCH (08:16)
[2019-05-10] MEDS ORDERED: LOSARTAN 50 MG TABLET PO SCH (09:00)
[2019-05-10] MEDS ORDERED: QUEtiapine 25 MG TABLET PO SCH (09:00)
[2019-05-10] MEDS ORDERED: lamoTRIgine 100 MG TABLET PO SCH (09:00)
[2019-05-10] MEDS ORDERED: OLANZapine 10 MG VIAL IM ONE (09:45)
[2019-05-10] MEDS ORDERED: NICOTINE 21 MG PATCH TOPICAL SCH (10:00)
--- NOTE | 2019-05-10 12:29 | Discharge Summary ---
Medical - DS: Prov Patient information: Note initiated : 05/10/19 at 12:26 pm Service Date, if different from initiated Date: [] Patient: Cynthia Kirby 69 y/o F admitted on 05/06/19 for Decreased LOC. Chief Complaint: [] Date of admission: 05/06/19 15:11 Discharge date: 05/10/19 Primary care physician: Hailey Denis Consults: 05/06/19 Consult to Physician [CONS] Stat Comment: Consulting Provider: Job Hirsch Reason For Exam: Physician to Consult Discharging clinician: Job Hirsch Medical - DS: Meds - Discharge Medications Prescriptions: Levofloxacin [Levaquin] 750 mg PO DAILY #5 tab Active and Home Medications: Home Medications Liothyronine Sodium 12.5 mcg PO HS 09/06/15 [History Confirmed 05/06/19 Last Taken 06/08/18] LORazepam [Ativan] 1 mg PO BID 06/09/18 [History Confirmed 05/06/19 Last Taken 06/08/18] Losartan/Hydrochlorothiazide [Losartan-Hctz 100-12.5 mg Tab] 1 each PO DAILY [History Confirmed 05/06/19 Last Taken 06/08/18] lamoTRIgine [Lamictal] 200 mg PO DAILY 06/09/18 [History Confirmed 05/06/19 Last Taken 06/08/18] QUEtiapine [Seroquel] 400 mg PO HS 06/10/18 [History Confirmed 05/06/19 Last Taken 06/08/18] Gabapentin [Neurontin] 100 mg PO BID 05/06/19 [History Confirmed 05/06/19 Last Taken Unknown] Levothyroxine [Synthroid] 50 mcg PO DAILY 05/06/19 [History Confirmed 05/06/19 Last Taken Unknown] Linaclotide [Linzess] 290 mcg PO DAILY 05/06/19 [History Confirmed 05/06/19 Last Taken Unknown] Omeprazole 20 mg PO DAILY 05/06/19 [History Confirmed 05/06/19 Last Taken Unknown] Polyethylene Glycol [Polyox Wsr-301] 17 gm MC DAILY 05/06/19 [History Confirmed 05/06/19 Last Taken Unknown] QUEtiapine [SEROquel] 50 mg PO DAILY 05/06/19 [History Confirmed 05/06/19 Last Taken Unknown] traZODone HCL [Trazodone HCl] 50 mg PO HS 05/06/19 [History Confirmed 05/06/19 Last Taken Unknown] Medical - DS: Hosp Hospital course: Ms. Kirby is a 69 year old F history of dementia, psychiatric disorders, presents to the emergency room for altered mental status and falls. Patient is unable to provide any meaningful history due to altered status, history is provided by the patient's caregiver. The patient has had a new caregiver approximately 2 weeks, she notes that she last saw the patient on Friday at which time patient was having some vomiting, the patient vomited 3 times in front of her. This morning the patient apparently called 911 but refused to come to the emergency room. When the caregiver went to see the patient she noted that the patient was on the floor and there was a broken piece of furniture in the house. Likely patient fell on the back. Patient was altered and unable to provide any history and therefore was brought to the emergency room. It seems like she was soiled in urine and possibly feces. On my evaluation patient is altered unable to provide any history she does respond to verbal commands but is drowsy, GCS score is 10 patient is able to maintain her airway. She is afebrile heart rate 68 blood pressure 132/ 71 presentation saturating more than 90% on room air. She briefly dropped her blood pressure to 79/50 and was resuscitated with IV fluids. By the time I reached the emergency room patient's blood pressure was back to normal range CBC is pending, patient had low potassium of 2.8, sodium of 112 chloride 74 bicarbonate 26 BUN 4 creatinine 0.7 glucose 105 CK is 491 troponin is negative, EKG shows sinus rhythm nonspecific ST-T wave changes and PVCs. Head CT was reported as no acute changes Chest x-ray was negative. Given the fact this patient has low sodium values, altered patient is going to be admitted to the ICU for further management I have consulted nephrology to he lp me manage patient's hyponatremia 05/07 Patient seen and examined, no acute overnight events. Patient sodium is appropriately corrected at 19 to 20 hours there was overcorrection at 12 hours however this was controlled with the help of D5 water and DDAVP. 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 diet well. Sodium is 118 today has remained stable since yesterday, we have discontinued the D5 water as well as a DDAVP now. We will trend sodium and hopefully we will be able to control the rise of sodium over the next 24 hours. 05/09 Patient seen and examined, no acute overnight events. Blood cultures had one bottle growing gram-negative bacillus source unknown patient started on aztreonam. Patient sodium level is back to normal now, patient had slightly more rapid correction than anticipated however the patient's sodium level was around 120 at that time. According to nephrology low risk for having any adverse reaction at this time. Fluid restrictions have been removed by nephrology we will monitor the patient. Stable for transfer to [facility] status patient remains anxious wants to go home as she is unable to contact her son it seems that the home phone is not functioning Adult Protective Services are involved in patient's care, 05/10 Patient seen and examined, quite anxious today however wants to go home. Her labs show stable sodium, 132 The gram-negative bacillus is yet to be speciated has been sent to a reference laboratory. Patient is clinically quite stable has no white count. She is received antibiotics for 48 hours I will give her p.o. levofloxacin for another 5 days to complete a 7-day course. Patient does not wish to go to a rehab center, I have called [facility] to evaluate for possible inpatient psychiatric evaluation and medication optimization they have noted that the patient does not qualify for inpatient admission from the psychiatry perspective. They deemed the patient is safe to be discharged home. Patient will be discharged home no changes have been made to her psychiatry medications. She needs to be on a fluid restriction at 2000 mL over 24 hours I am not sure if this restriction will be followed. She does have a follow-up with a psychiatrist this week In summary patient admitted to the hospital with a diagnosis of hyponatremia secondary to psychogenic polydipsia. Patient was treated with fluid restriction, and her sodium was monitored closely. At the time of discharge the sodium is 132. The patient also had gram-negative bacteremia isolation of this pathogen is pending however patient has responded well to antibiotics, she will be discharged on p.o. levofloxacin 750 mg for another 5 days. She does have a follow-up with a psychiatrist this week advised to keep same advised to keep fluid restriction at 2000 mL in 24 hours Discharge diagnosis: Psychogenic Polydipsia - Time Spent with Patient Total time spent providing and/or coordinating discharge services: Greater than 30 minutes Medical - DS: Exam - Constitutional Vitals: Vital Signs Temp Pulse Resp BP Pulse Ox 05/10/19 06:38 98.5 F 18 151/76 100 05/10/19 06:30 100 05/10/19 04:38 97.9 F 88 18 137/84 98 05/10/19 00:12 98.1 F 88 16 121/75 95 05/09/19 22:36 138/82 05/09/19 20:34 178/104 05/09/19 20:32 97.4 F 86 18 200/109 98 05/09/19 20:29 86 100 05/09/19 17:20 98.0 F 90 20 159/93 98 05/09/19 17:19 98.0 F 89 20 161/91 99 Intake and Output 05/09/19 05/10/19 05/10/19 21:59 05:59 13:59 Intake Total 3300 840 Output Total 3100 1200 1950 Balance -3100 2100 -1110 Intake: Oral 3300 840 Output: Urine Catheter Amount 2200 Void Amount 900 1200 1950 Other: Meal 4 packets saltines Breakfast Percent of Meal Consumed 75% Feeding Ability Assist with Tray Set Up Urine Appearance Clear Clear Clear Urine Color Pale Pale Pale Urine Odor Normal Normal Weight 183 lb 3.2 oz Additional comments: Constitutional; Afebrile, cooperative, alert, not in distress. Respiratory system: Air Entry equal on both sides, No crackles or wheezing, no rhonchi. CVS- Rate rhythm regular, S1,S2 heard, no gallop, no rub. 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 Medical - DS: Data Labs on day of discharge: Labs from last 24 hours 05/10/19 05/10/19 03:22 03:22 WBC 6.9 RBC 4.00 Hgb 11.3 L Hct 33.8 L MCV 84.5 MCH 28.3 MCHC 33.5 RDW 13.2 Plt Count 288 MPV 7.3 L Gran % 51.5 Lymph % (Auto) 36.8 [place] % (Auto) 7.6 Eos % (Auto) 3.2 Baso % (Auto) 0.9 Gran # 3.6 Lymph # (Auto) 2.5 [place] # (Auto) 0.5 Eos # (Auto) 0.2 Baso # (Auto) 0.1 Sodium 132 L Potassium 3.3 Chloride 96 Carbon Dioxide 27 Anion Gap 9.0 BUN 6 L Creatinine 0.8 GFR Calculation 75 Glucose 91 Uric Acid 3.3 Calcium 9.6 Phosphorus 3.4 Magnesium 2.0 Total Bilirubin 0.2 Direct Bilirubin < 0.2 GGT 31 AST 11 ALT 15 Alkaline Phosphatase 72 Lactate Dehydrogenase 148 Total Protein 6.2 Albumin 3.6 Globulin 2.6 Albumin/Globulin Ratio 1.4 Triglycerides 103 Preliminary micro results at discharge 05/06/19 13:47 Blood Culture - Preliminary Blood 05/06/19 12:47 Blood Culture - Preliminary Blood Gram negative bacillus Medical - DS: A/P - Patient/Caregiver Discharge Instructions Activity: increase activity as tolerated Diet: Consistent Carbohydrate (fluid restriction to 2000ml/ 24 hrs ) Additional Instructions: Please restrict fluid intake to 2000ml in 24 hrs Follow up with your psychiatrist this week, you need to make changes to psychiatry medications as 1 of this medication is likely causing you to drink excessive amounts of fluid. Please take levofloxacin 750 mg once a day for another 5 days. Please go to the emergency room if abdominal pain nausea vomiting or any other acute concern. Prescriptions: Levofloxacin [Levaquin] 750 mg PO DAILY #5 tab - Follow up Plan Follow up with: Hailey Denis ARNP [Primary Care Provider] - Bianca Buck ARNP [Referring] - (Phone for Bianca Garcia is Message left for her to contact you at home. Located at [facility]) Disposition: Home Health Service Prognosis: Fair Rehab Potential: Fair I certify that the patient requires SNF services: No Overall status at discharge: patient is progressing back to baseline Medical - DS: Qual - VTE Deep Vein Thrombosis/Pulmonary Embolism Present on Admission: No
== END 2019-05-10 15:40 | disposition home health service (06) | DRG 640 ==
LOC: ED 12:01 → ICU 15:11
PROVIDERS: ADMIT Internal Medicine; ATTEND Internal Medicine

== ENCOUNTER 2019-06-20 01:09 | Inpatient (IN) ==
--- NOTE | 2019-06-20 01:25 | Emergency Department Note ---
Altered Mental Status HPI - General Chief Complaint: Altered Mental Status Stated Complaint: Altered State per EMS Time Seen by Provider: 06/20/19 01:22 Source: patient Mode of arrival: EMS - History of Present Illness MD complaint: altered mental status Onset (ago): hour(s) Severity: moderate Consistency of Symptoms: unknown Context: other (Patient does have some abnormality at baseline, however she is much more tachypneic than usual.) Associated symptoms: Reports: denies other symptoms - Related Data Home Medications Medication Instructions Recorded Confirmed Liothyronine Sodium 12.5 mcg PO HS 09/06/15 05/25/19 LORazepam [Ativan] 1 mg PO BID 06/09/18 05/25/19 Losartan/Hydrochlorothiazide 1 each PO DAILY 06/09/18 05/25/19 [Losartan-Hctz 100-12.5 mg Tab] lamoTRIgine [Lamictal] 200 mg PO DAILY 06/09/18 05/25/19 QUEtiapine [Seroquel] 400 mg PO HS 06/10/18 05/25/19 Gabapentin [Neurontin] 100 mg PO BID 05/06/19 05/25/19 Levothyroxine [Synthroid] 50 mcg PO DAILY 05/06/19 05/25/19 Linaclotide [Linzess] 290 mcg PO DAILY 05/06/19 05/25/19 QUEtiapine [Seroquel] 50 mg PO DAILY 05/06/19 05/25/19 traZODone HCL [Trazodone HCl] 50 mg PO HS 05/06/19 05/25/19 Levothyroxine Sodium [Synthroid] 112 mcg PO DAILY 05/25/19 05/25/19 amLODIPine [Norvasc] 10 mg PO DAILY 05/25/19 05/25/19 metFORMIN HCL [Metformin ER 1,000 mg PO DAILY 05/25/19 05/25/19 Osmotic] Allergies Allergy/AdvReac Type Severity Reaction Status Date / Time Penicillins Allergy Severe Swelling Verified 05/06/19 12:09 of Throat Review of Systems All systems ED: reviewed and negative except as stated. Past Medical History - Past Medical History [facility] Narrative: All Active Problems (Last Updated 04/06/19 @ 07:24 by Osvaldo Grimes DO) Nausea & vomiting (Acute) Polydipsia (Acute) Peptic ulcer disease (Acute) Anxiety (Acute) Acute anxiety (Acute) Panic disorder (Acute) Altered mental status (Acute) Psychogenic polydipsia (Acute) Hyponatremia (Acute) Hypochloremia (Acute) Elevated lactic acid level (Acute) Hyponatremia with excess extracellular fluid volume (Acute) Cigarette smoker (Chronic) Diabetes mellitus type 2, controlled (Chronic) Alzheimer's disease (Chronic) Bipolar disorder (Chronic) Elevated serum GGT level (Chronic) Hypertension, essential (Chronic) Hyperlipidemia (Chronic) Hypothyroidism (acquired) (Chronic) Obesity (Chronic) Constipation (Chronic) Vitamin D deficiency (Chronic) Osteoporosis (Chronic) Osteopenia (Chronic) Constipation (Chronic) Anxiety about health (Chronic) Cognitive dysfunction (Chronic) Cough (Chronic) Abdominal pain (Chronic) Schwannoma (Chronic 02/06/12) Depression (Chronic) Seborrhea (Chronic) Medical history: Reports: cancer, COPD, dementia, DM, hyperlipidemia, hyp ertension, osteoporosis, thyroid disease, other (Psychogenic polydipsia) Psychiatric history: Reports: anxiety, bipolar 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 history: Reports: non-contributory Surgical history ED: Reports: appendectomy, hysterectomy - Social History smoking status: Never smoker Alcohol use: Reports: None Drug use: Reports: none Physical Exam General: Alert, interactive, patient does appear dyspneic Head: Atraumatic, normocephalic Eyes: Extraocular movements intact Neck: Trachea midline, full range of motion Chest: Symmetrical chest wall rise, patient is tachypneic without hypoxia Cardiovascular: Patient with excellent perfusion to the extremities; patient is tachycardic, without hypertension or hypotension Extremities: Full range of motion joints, warm well perfused Neuro: Alert, oriented x3, cranial nerves II through XII grossly intact, normal gait Psychiatric: Normal affect normal mood Course Course Narrative: 69-year-old patient presenting to the emergency department chief complaint of altered mental status. Patient's recent medical history is evaluated for fe moral/infectious illnesses, history of organ failure, medication list, drug/alcohol history, and depression patient's mental status made them unable to provide significant clues to current symptoms differential diagnosis included but not limited to stroke, intracranial hemorrhage, electrolyte derangement, DKA/HHS, sepsis, toxicology including alcohol and overdose, status epilepticus. Vital Signs Temperature 97.2 F 06/20/19 01:10 Pulse Rate 114 H 06/20/19 01:10 Respiratory Rate 24 H 06/20/19 01:10 Blood Pressure 172/90 06/20/19 01:10 Pulse Oximetry (%) 97 06/20/19 01:10 Temperature 97.2 F 06/20/19 01:10 Pulse Rate 107 H 06/20/19 05:34 Respiratory Rate 26 H 06/20/19 05:34 Blood Pressure 146/79 06/20/19 05:31 Pulse Oximetry (%) 97 06/20/19 05:34 Altered Mental Status - MDM Narrative Medical decision making narrative: 69-year-old female presenting with a chief complaint of altered mental status. Patient does have baseline neurological abnormality however this is not her normal. During the course of evaluation patient was noted to have hyponatremia. Serum sodium was not <105 mEq/L, pt did have concurrent hypokalemia which was addressed with KCl 40 meq po, pt does not have chronic excess alcohol intake or acute/chronic hepatic disease/malnourishment. Pt without recent surgery, is not being treated for adrenal suppression, of her medication Quetiapine has <1% rate of hyponatremia, pt has had several episodes of hyponatremia in the past. Pt is at risk for osmotic demyelination however she is having altered mental status with pt having had frequent visits and staff recognizing altered mentation. Risk/benefit ratio is appraised prior to initiating correction with 3% hypertonic saline at 100 cc first does followed by bedside rapid chemistry panel. Repeat sodium just prior to admission was 122 for correction of 6 during stay in the emergency department. Patient did have clearing of mental status c oncerning feature was a large diuresis hospitalist Dr. Mkceon made aware of patient as well as these findings and clinical course in the emergency department. Patient accepted for admission into the ICU. - Lab Data Result diagrams: 06/20/19 01:30 06/20/19 01:30 Lab Results 06/20/19 06/20/19 06/20/19 Range/Units 01:30 01:30 04:20 WBC 13.4 H (4.5-11.0) K/mcL RBC 4.61 (4.00-5.20) M/mcL Hgb 13.0 (12.0-15.0) g/dL Hct 40.1 (36.0-48.0) % POC Hct 42.0 (36.0-48.0) % MCV 87.0 (80.0-100.0) fL MCH 28.3 (26.0-34.0) pg MCHC 32.5 (31.0-36.0) g/dL RDW 13.1 (11.5-14.5) % Plt Count 383 (140-440) K/mcL MPV 6.6 L (7.4-10.4) fL Gran % 81.7 H (38.0-78.0) % Lymph % (Auto) 13.1 L (15.5-49.0) % [place] % (Auto) 4.3 (1.0-12.0) % Eos % (Auto) 0.4 (0.0-7.0) % Baso % (Auto) 0.5 (0.0-2.0) % Gran # 10.9 H (1.8-8.0) K/mcL Lymph # (Auto) 1.8 (1.5-4.8) K/mcL [place] # (Auto) 0.6 (0.1-0.9) K/mcL Eos # (Auto) 0.1 (0.0-0.7) K/mcL Baso # (Auto) 0.1 (0.0-0.3) K/mcL POC Sodium 121 L (133-145) mmol/L Sodium 116 L* (133-145) mmol/L POC Potassium 3.2 L (3.3-5.1) mmol/L Potassium 2.9 L* (3.3-5.1) mmol/L POC Chloride 84 L (96-108) mmol/L Chloride 78 L (96-108) mmol/L Carbon Dioxide 21 L (22-30) mmol/L POC Total CO2 25 (22-30) mmol/L Anion Gap 17.0 H (8-16) POC BUN < 3 L (8-23) mg/dl BUN 3 L (8-23) mg/dl Creatinine 0.8 (0.6-1.1) mg/dl POC Creatinine 0.6 (0.6-1.1) mg/dl GFR Calculation 75 Glucose 164 H (70-105) mg/dL POC Glucose 120 H (70-105) mg/dL Calcium 9.6 (8.6-10.4) mg/dl POC WB Ioniz Calcium 1.11 L (1.16-1.32) mmol/L Total Bilirubin 0.4 (0.0-1.0) mg/dL AST 18 (0-37) U/l ALT 17 (0-40) U/l Alkaline Phosphatase 96 (39-117) U/L Total Protein 7.3 (5.9-8.4) gm/dL Albumin 4.3 (3.2-5.2) gm/dL Globulin 3.0 (2.2-3.7) gm/dL Albumin/Globulin Ratio 1.4 (1.0-2.3) 06/20/19 Range/Units 05:38 WBC (4.5-11.0) K/mcL RBC (4.00-5.20) M/mcL Hgb (12.0-15.0) g/dL Hct (36.0-48.0) % POC Hct 43.0 (36.0-48.0) % MCV (80.0-100.0) fL MCH (26.0-34.0) pg MCHC (31.0-36.0) g/dL RDW (11.5-14.5) % Plt Count (140-440) K/mcL MPV (7.4-10.4) fL Gran % (38.0-78.0) % Lymph % (Auto) (15.5-49.0) % [place] % (Auto) (1.0-12.0) % Eos % (Auto) (0.0-7.0) % Baso % (Auto) (0.0-2.0) % Gran # (1.8-8.0) K/mcL Lymph # (Auto) (1.5-4.8) K/mcL [place] # (Auto) (0.1-0.9) K/mcL Eos # (Auto) (0.0-0.7) K/mcL Baso # (Auto) (0.0-0.3) K/mcL POC Sodium 122 L (133-145) mmol/L Sodium (133-145) mmol/L POC Potassium 3.7 (3.3-5.1) mmol/L Potassium (3.3-5.1) mmol/L POC Chloride 87 L (96-108) mmol/L Chloride (96-108) mmol/L Carbon Dioxide (22-30) mmol/L POC Total CO2 23 (22-30) mmol/L Anion Gap (8-16) POC BUN < 3 L (8-23) mg/dl BUN (8-23) mg/dl Creatinine (0.6-1.1) mg/dl POC Creatinine 0.7 (0.6-1.1) mg/dl GFR Calculation Glucose (70-105) mg/dL POC Glucose 128 H (70-105) mg/dL Calcium (8.6-10.4) mg/dl POC WB Ioniz Calcium 1.16 (1.16-1.32) mmol/L Total Bilirubin (0.0-1.0) mg/dL AST (0-37) U/l ALT (0-40) U/l Alkaline Phosphatase (39-117) U/L Total Protein (5.9-8.4) gm/dL Albumin (3.2-5.2) gm/dL Globulin (2.2-3.7) gm/dL Albumin/Globulin Ratio (1.0-2.3) Critical Care Time Critical Care Time: Yes Total Critical Care Time: 100 (critical low sodium, altered mental status) Attestation: This critical care time was direct patient care exclusive of other procedures. Disposition Pt seen by COMMERCIAL REPORTER/PA only: No Clinical Impression: Hyponatremia with excess extracellular fluid volume Disposition: Xfer As Inpt ([facility]) Condition: Critical Referrals: Hailey Denis, REJI [Primary Care Provider] -
[2019-06-20 02:12] LABS: Basophils # (Auto) 0.1 K/mcL (0.0-0.3); Basophils % (Auto) 0.5 % (0.0-2.0); Eosinophils # (Auto) 0.1 K/mcL (0.0-0.7); Eosinophils % (Auto) 0.4 % (0.0-7.0); Granulocytes % (Auto) 81.7 % (38.0-78.0); Hematocrit 40.1 % (36.0-48.0); Lymphocytes # (Auto) 1.8 K/mcL (1.5-4.8); Lymphocytes % (Auto) 13.1 % (15.5-49.0); Mean Corpuscular HGB Conc 32.5 g/dL (31.0-36.0); Mean Platelet Volume 6.6 fL (7.4-10.4); Monocytes # (Auto) 0.6 K/mcL (0.1-0.9); Monocytes % (Auto) 4.3 % (1.0-12.0); Platelet Count 383 K/mcL (140-440); RBC 4.61 M/mcL (4.00-5.20); Red Cell Distribution Width 13.1 % (11.5-14.5); WBC 13.4 K/mcL (4.5-11.0)
[2019-06-20 02:32] LABS: ALT/SGPT 17 U/l (0-40); AST/SGOT 18 U/l (0-37); Albumin 4.3 gm/dL (3.2-5.2); Albumin/Globulin Ratio 1.4 (1.0-2.3); Alkaline Phosphatase 96 U/L (39-117); Bilirubin,Total 0.4 mg/dL (0.0-1.0); Blood Urea Nitrogen 3 mg/dl (8-23); Calcium 9.6 mg/dl (8.6-10.4); Carbon Dioxide 21 mmol/L (22-30); Chloride 78 mmol/L (96-108); Glomerular Filtration Rate 75; Glucose 164 mg/dL (70-105)
[2019-06-20] MEDS ORDERED: SODIUM CHLORIDE 3 % 500 ML IV SCH ×2 (03:45→14:33)
[2019-06-20] MEDS ORDERED: POTASSIUM CHLORIDE 20 MEQ TABLET PO ONE (04:08)
[2019-06-20] MEDS ORDERED: POTASSIUM CHLORIDE 20 MEQ PACKET PO ONE (04:10)
[2019-06-20 04:30] LABS: POC Blood Urea Nitrogen < 3 mg/dl (8-23); POC CO2 25 mmol/L (22-30); POC Calcium, Ionized 1.11 mmol/L (1.16-1.32); POC Chloride 84 mmol/L (96-108); POC Creatinine 0.6 mg/dl (0.6-1.1); POC Glucose, Random 120 mg/dL (70-105); POC Potassium 3.2 mmol/L (3.3-5.1); POC Sodium 121 mmol/L (133-145)
[2019-06-20 05:49] LABS: POC Blood Urea Nitrogen < 3 mg/dl (8-23); POC CO2 23 mmol/L (22-30); POC Calcium, Ionized 1.16 mmol/L (1.16-1.32); POC Chloride 87 mmol/L (96-108); POC Creatinine 0.7 mg/dl (0.6-1.1); POC Glucose, Random 128 mg/dL (70-105); POC Potassium 3.7 mmol/L (3.3-5.1); POC Sodium 122 mmol/L (133-145)
--- NOTE | 2019-06-20 08:51 | XRay Report ---
HISTORY: Abdominal pain and altered mental status FINDINGS: There is moderate amount of gas in the stomach but it is not abnormally distended. The bowel pattern is otherwise normal. No free intra-abdominal air is seen. There is no apparent soft tissue mass. Vascular calcifications are seen in the iliac and splenic arteries. No kidney stone is identified. There is degenerative disc disease and arthritis in the lower lumbar spine. IMPRESSION: No acute abnormality Interpreted and Authenticated by: Albert Rashid 06/20/19
[2019-06-20] MEDS ORDERED: GABAPENTIN 100 MG CAPSULE PO SCH (09:00)
[2019-06-20] MEDS ORDERED: QUEtiapine 25 MG TABLET PO SCH (09:00)
[2019-06-20] MEDS ORDERED: amLODIPine 10 MG TABLET PO SCH (09:00)
--- NOTE | 2019-06-20 09:08 | Cat Scan Report ---
History: Altered mental status TECHNIQUE: The brain was imaged without contrast at 2.5 mm intervals. The radiation exposure was limited using dose reduction technology. FINDINGS: Mild generalized cerebral atrophy is present. There are subtle white matter changes with ill-defined zone of decreased attenuation in the periphery of the centrum semiovale in the left parietal lobe. These are chronic stable findings. There is no evidence of an infarct, hemorrhage or mass effect. The ventricles are mildly prominent but proportionate to the atrophy. There is no abnormal extra-axial fluid collection. There is a mucus retention cyst in right maxillary sinus. Scattered calcified plaques are seen in the cavernous portions of both internal carotids and the left vertebral and inferior basilar artery. There has been no significant change from 07/10/2017 through 05/06/2019. IMPRESSION: Stable age-related degenerative changes. No acute abnormality and no change from prior studies. Interpreted and Authenticated by: Albert Rashid 06/20/19
[2019-06-20] MEDS ORDERED: LORazepam 1 MG TABLET PO SCH (12:00)
--- NOTE | 2019-06-20 12:11 | Internal Med History&Physical ---
Medical - H&P: [facility] Patient information: Note initiated : 06/20/19 at 12:10 pm Service Date, if different from initiated Date: [] Patient: Cynthia Kirby a 69 y/o F admitted on 06/20/19 for Altered State per EMS. Chief Complaint: Confusion History of present illness: Ms. Kirby is a 69 year old F with a history of psychogenic polydipsia, recurrent hyponatremia, hospitalized here early May for same, bipolar disorder on treatment who presents via EMS with altered mental status. History is obtained initially and speaking with the emergency department, by the time I subsequently see the patient she has cleared as able to provide more history. Patient states that she is unsure how she got to the hospital. She supposes her son activated EMS, which I believe was the case. She is quite confused in the emergency department, and she is well-known to personnel at this facility noted that she was not at her baseline. Evaluation in the emergency department revealed a sodium of 116. The emergency department she received 100 mL of 3% saline over 10 minutes, sodium increased significantly to 122. I was subsequ ently contacted to consult and admit the patient for altered mental status and hyponatremia. Patient states that she is currently drinking several liters a day of Pepsi. Does not appear she is drinking excess quantities of free water at this time. She thinks she was doing okay yesterday. She does complain of a dry mouth which is part of the reason that she drinks fluids. She denies any fevers or chills, no nausea or vomiting, no diarrhea. She has no shortness of breath, she is not coughing anything up. She has no chest pain. She was initially impulsive, but improved after morning doses of her usual medications. In early May, the patient presented with a similar picture, had rapid correction of her sodium with fluid restriction. She was advised to limit fluid intake to 2 L at that time. All systems: reviewed and no additional remarkable complaints except as stated Medical - H&P: PMH Medical history: Cigarette smoker (Chronic) Diabetes mellitus type 2, controlled (Chronic) Alzheimer's disease (Chronic) Bipolar disorder (Chronic) Elevated serum GGT level (Chronic) Hypertension, essential (Chronic) Hyperlipidemia (Chronic) Hypothyroidism (acquired) (Chronic) Obesity (Chronic) Constipation (Chronic) Vitamin D deficiency (Chronic) Osteoporosis (Chronic) Osteopenia (Chronic) Constipation (Chronic) Anxiety about health (Chronic) Cognitive dysfunction (Chronic) Cough (Chronic) Abdominal pain (Chronic) Schwannoma (Chronic 02/06/12) Depression (Chronic) Seborrhea (Chronic) Acute anxiety (Resolved) Acute cystitis with hematuria (Resolved) Ankle fracture (Resolved) Anxiety (Resolved) Bimalleolar fracture of right ankle (Resolved) Flea bite (Resolved) Foot pain, right (Resolved) Hypokalemia (Resolved) Rectal pain (Resolved) Sepsis (Resolved) Urinary tract infection (Resolved) Yeast infection (Resolved) Encounter for medication refill (Inactive) Surgical history: H/O colonoscopy (Inactive 08/23/15) Pertinent family history: Mother Arthritis Essential hypertension Father Myocardial Infarction Unknown Chronic obstructive pulmonary disease Social history: Lives with her son Smoking status: Current every day smoker Alcohol use: none Medical - H&P: Meds Home Medications Medication Instructions Recorded Confirmed Type Liothyronine Sodium 12.5 mcg PO HS 09/06/15 06/20/19 History LORazepam [Ativan] 1 mg PO BID@1200,1800 06/09/18 06/20/19 History Losartan/Hydrochlorothiazide 1 tab PO DAILY 06/09/18 06/20/19 History [Losartan-Hctz 100-12.5 mg Tab] lamoTRIgine [Lamictal] 200 mg PO DAILY 06/09/18 06/20/19 History QUEtiapine [Seroquel] 400 mg PO HS 06/10/18 06/20/19 History Gabapentin [Neurontin] 200 mg PO BID 05/06/19 06/20/19 History Levothyroxine [Synthroid] 50 mcg PO QAMAC 05/06/19 06/20/19 History Linaclotide [Linzess] 290 mcg PO DAILY 05/06/19 06/20/19 History QUEtiapine [Seroquel] 50 mg PO DAILY 05/06/19 06/20/19 History traZODone HCL [Trazodone HCl] 50 mg PO HS 05/06/19 06/20/19 History Levothyroxine Sodium [Synthroid] 112 mcg PO QAMAC 05/25/19 06/20/19 History amLODIPine [Norvasc] 10 mg PO DAILY 05/25/19 06/20/19 History metFORMIN HCL [Metformin ER 1,000 mg PO QPMCC 05/25/19 06/20/19 History Osmotic] Omeprazole [PriLOSEC] 20 mg PO ACB 06/20/19 06/20/19 History Allergies Allergy/AdvReac Type Severity Reaction Status Date / Time Penicillins Allergy Severe Swelling Verified 06/20/19 16:25 of Throat Medical - H&P: Exam - Constitutional Vitals: Temp Pulse Resp BP Pulse Ox 97.2 F 78 22 126/75 97 06/20/19 10:53 06/20/19 11:01 06/20/19 11:27 06/20/19 11:01 06/20/19 11:01 Exam: GENERAL: Alert, oriented to self, place, situation at the time of my exam, in no acute distress. HEENT: Atraumatic. PERRL at 3 mm, conjunctiva clear, no scleral icterus. Hearing grossly intact. Oropharynx with dry mucous membranes, lips dry, tongue midline. NECK: Supple without meningismus, no thyromegaly RESPIRATORY: Breath sounds clear bilaterally without wheezes or rhonchi. Respiratory effort is unlabored. CARDIOVASCULAR: Regular rate and rhythm, no murmur or rub. No peripheral edema. Carotid pulses 2+ without bruit. GI: Abdomen soft, nontender, no guarding or rebound. Bowel sounds are present. No hepatosplenomegaly. MUSCULOSKELETAL: No joint erythema or swelling, normal range of motion in all extremities. SKIN: Warm, dry. Skin turgor decreased. NEUROLOGIC: Cranial nerves II through XII grossly intact. Muscle mass normal. Strength 5/5 in the upper and lower extremities. Sensation intact to light touch bilaterally. PSYCHIATRIC: Alert, oriented to person, place and situation. Decreased insight into condition. Medical - H&P: Reslt - Labs CBC & Chem 7: 06/20/19 01:30 06/20/19 19:53 Labs: Short CBC 06/20/19 Range/Units 01:30 WBC 13.4 H (4.5-11.0) K/mcL Hgb 13.0 (12.0-15.0) g/dL Hct 40.1 (36.0-48.0) % Plt Count 383 (140-440) K/mcL BMP 06/20/19 01:30 Sodium 116 L* Potassium 2.9 L* Chloride 78 L Carbon Dioxide 21 L BUN 3 L Creatinine 0.8 Glucose 164 H Calcium 9.6 Liver Function 06/20/19 Range/Units 01:30 Total Bilirubin 0.4 (0.0-1.0) mg/dL AST 18 (0-37) U/l ALT 17 (0-40) U/l Alkaline Phosphatase 96 (39-117) U/L Albumin 4.3 (3.2-5.2) gm/dL - Imaging and Cardiology CT scan - head Status: image reviewed by me (IMPRESSION: Stable age-related degenerative changes) Abdominal x-ray Status: image reviewed by me (IMPRESSION: No acute abnormality) Medical - H&P: A/P (1) Hyponatremia Current visit: Yes Status: Acute (2) Encephalopathy acute Current visit: Yes Status: Acute (3) Polydipsia Current visit: Yes Status: Acute (4) Diabetes mellitus type 2, controlled Current visit: Yes Status: Chronic (5) Bipolar disorder Current visit: Yes Status: Chronic (6) Hypertension, essential Current visit: Yes Status: Chronic (7) Hyperlipidemia Current visit: Yes Status: Chronic (8) Hypothyroidism (acquired) Current visit: Yes Status: Chronic - Narrative A/P Narrative: 69-year-old female with history of polydipsia, bipolar disorder, mention of dementia in the chart presents with altered mental status. Found to have serum sodium 116. Hyponatremia. Suspect this is fairly acute resulting in encephalopathy. She received 3% saline initially in the ED with significant drop in her sodium, since then her sodium is continued to correct without specific intervention. Indeed free water has been given back to help slow speed of correction. As her sodium has improved, her mentation has improved and she is returning towards baseline, suggesting this was a fairly acute development of hyponatremia. The etiology appears to be her known psychogenic polydipsia. Plan: Inpatient admission. Continue to closely monitor sodium. When normalized, will stop fluids, monitor oral intake and monitor stability of her serum sodium. Encephalopathy. Suspect metabolic encephalopathy secondary to fairly acute hyponatremia. Plan: Correct metabolic abnormalities, monitor. Polydipsia. May be driven in part due to dry mouth from medications. Plan: Fluid restrict, continue to educate on importance of fluid restrictions. Bipolar disorder. Appears stable. Plan: Continue home regimen Hypertension. Stable. Plan: Continue home regimen. Hyperlipidemia. Stable. Plan continue home regimen. Hypothyroidism. Plan: Continue home regimen. CODE STATUS: DO NOT RESUSCITATE. Prophylaxis: Lovenox
[2019-06-20] MEDS ORDERED: DEXTROSE 50% 50 ML VIAL IV PRN ×2 (12:23→14:33)
[2019-06-20] MEDS ORDERED: DEXTROSE 31 GM ORAL.SUSP PO PRN ×2 (12:23→14:33)
[2019-06-20 12:35] LABS: Blood Urea Nitrogen 6 mg/dl (8-23); Calcium 10.5 mg/dl (8.6-10.4); Carbon Dioxide 27 mmol/L (22-30); Chloride 90 mmol/L (96-108); Glomerular Filtration Rate 65; Glucose 103 mg/dL (70-105)
[2019-06-20] MEDS ORDERED: DEXTROSE 5% IN WATER 1,000 ML IV SCH ×2 (13:15→14:33)
[2019-06-20] MEDS ORDERED: 0.9 % SODIUM CHLORIDE 10 ML SYRINGE IV SCH (14:00)
[2019-06-20] MEDS: NICOTINE 21 MG PATCH TOPICAL SCH (15:01)
[2019-06-20 15:12] LABS: Appearance,Urine CLEAR; Bilirubin,Urine NEG (NEG); Color,Urine COLORLESS; Culture Indicated,Urine NO; Glucose,Urine (UA) NEGATIVE (NEG); Ketones,Urine NEG (NEG); Leukocyte Esterase,Urine NEG /uL (NEG); Nitrate,Urine NEG (NEG); Protein,Urine NEG (NEG); Specific Gravity,Urine 1.002 (1.000-1.035); Urine Blood NEG mg/dL (<0.03); Urobilinogen,Urine NEG (NEG)
[2019-06-20] MEDS ORDERED: INSULIN LISPRO 1 UNIT/0.01 ML UNIT SQ SCH (17:00)
[2019-06-20] MEDS: DEXTROSE 5% IN WATER 1,000 ML IV SCH ×2 (17:16→23:30)
[2019-06-20] MEDS: INSULIN LISPRO 1 UNIT/0.01 ML UNIT SQ SCH ×2 (17:26→20:39)
[2019-06-20] MEDS: LORazepam 1 MG TABLET PO SCH (17:27)
[2019-06-20] MEDS: LIOTHYRONINE 5 MCG TABLET PO SCH (20:38)
[2019-06-20] MEDS: QUEtiapine 100 MG TABLET PO SCH (20:38)
[2019-06-20] MEDS: traZODone HCL 50 MG TABLET PO SCH (20:38)
[2019-06-20] MEDS: GABAPENTIN 100 MG CAPSULE PO SCH (20:39)
[2019-06-20] MEDS: 0.9 % SODIUM CHLORIDE 10 ML SYRINGE IV SCH (20:39)
[2019-06-20] MEDS ORDERED: QUEtiapine 100 MG TABLET PO SCH (21:00)
[2019-06-20] MEDS ORDERED: LIOTHYRONINE 5 MCG TABLET PO SCH (21:00)
[2019-06-20] MEDS ORDERED: traZODone HCL 50 MG TABLET PO SCH (21:00)
[2019-06-21] MEDS: 0.9 % SODIUM CHLORIDE 10 ML SYRINGE IV SCH ×3 (05:55→21:00)
[2019-06-21] MEDS ORDERED: OMEPRAZOLE 20 MG CAPSULE PO SCH (07:30)
[2019-06-21] MEDS ORDERED: LEVOTHYROXINE SODIUM 112 MCG TABLET PO SCH (07:30)
[2019-06-21] MEDS ORDERED: LEVOTHYROXINE 50 MCG TABLET PO SCH (07:30)
[2019-06-21] MEDS: DEXTROSE 5% IN WATER 1,000 ML IV SCH (07:47)
[2019-06-21] MEDS: LEVOTHYROXINE SODIUM 112 MCG TABLET PO SCH (08:53)
[2019-06-21] MEDS: OMEPRAZOLE 20 MG CAPSULE PO SCH (08:53)
[2019-06-21] MEDS: LEVOTHYROXINE 50 MCG TABLET PO SCH (08:53)
[2019-06-21] MEDS: INSULIN LISPRO 1 UNIT/0.01 ML UNIT SQ SCH ×4 (08:56→20:01)
[2019-06-21] MEDS ORDERED: lamoTRIgine 100 MG TABLET PO SCH (09:00)
[2019-06-21 09:22] LABS: Basophils # (Auto) 0 K/mcL (0.0-0.3); Basophils % (Auto) 0.3 % (0.0-2.0); Eosinophils # (Auto) 0.2 K/mcL (0.0-0.7); Eosinophils % (Auto) 2.1 % (0.0-7.0); Granulocytes % (Auto) 60.6 % (38.0-78.0); Hematocrit 41.6 % (36.0-48.0); Hemoglobin 13.6 g/dL (12.0-15.0); Lymphocytes # (Auto) 2.3 K/mcL (1.5-4.8); Lymphocytes % (Auto) 28.4 % (15.5-49.0); Mean Corpuscular HGB Conc 32.6 g/dL (31.0-36.0); Mean Platelet Volume 6.5 fL (7.4-10.4); Monocytes # (Auto) 0.7 K/mcL (0.1-0.9); Monocytes % (Auto) 8.6 % (1.0-12.0); Platelet Count 368 K/mcL (140-440); RBC 4.78 M/mcL (4.00-5.20); Red Cell Distribution Width 13.9 % (11.5-14.5); WBC 8.2 K/mcL (4.5-11.0)
[2019-06-21] MEDS: QUEtiapine 25 MG TABLET PO SCH (09:22)
[2019-06-21] MEDS: GABAPENTIN 100 MG CAPSULE PO SCH ×2 (09:22→20:09)
[2019-06-21] MEDS: amLODIPine 10 MG TABLET PO SCH (09:22)
[2019-06-21] MEDS: NICOTINE 21 MG PATCH TOPICAL SCH (09:23)
[2019-06-21] MEDS: lamoTRIgine 100 MG TABLET PO SCH (09:23)
[2019-06-21 09:37] LABS: ALT/SGPT 14 U/l (0-40); AST/SGOT 16 U/l (0-37); Albumin/Globulin Ratio 1.4 (1.0-2.3); Alkaline Phosphatase 91 U/L (39-117); Bilirubin,Total 0.2 mg/dL (0.0-1.0); Blood Urea Nitrogen 7 mg/dl (8-23); Calcium 10.1 mg/dl (8.6-10.4); Carbon Dioxide 28 mmol/L (22-30); Chloride 94 mmol/L (96-108); Globulin 2.9 gm/dL (2.2-3.7); Glomerular Filtration Rate 75; Glucose 99 mg/dL (70-105)
[2019-06-21] MEDS: LORazepam 1 MG TABLET PO SCH ×2 (12:08→18:31)
[2019-06-21] MEDS ORDERED: ACETAMINOPHEN 325 MG TABLET PO PRN (18:58)
[2019-06-21] MEDS ORDERED: ACETAMINOPHEN 325 MG TABLET PO ONE (19:13)
[2019-06-21] MEDS: LIOTHYRONINE 5 MCG TABLET PO SCH (20:08)
[2019-06-21] MEDS: QUEtiapine 100 MG TABLET PO SCH (20:09)
[2019-06-21] MEDS: traZODone HCL 50 MG TABLET PO SCH (20:09)
--- NOTE | 2019-06-21 21:59 | Internal Med Progress Note ---
Medical - PN: Subj Patient information: Note initiated : 06/21/19 at 9:56 pm Service Date, if different from initiated Date: [] Patient: Cynthia Kirby a 69 y/o F admitted on 06/20/19 for Altered State per EMS. Chief Complaint: Follow-up hyponatremia Interval history: Ms. Kirby is a 69 year old F with a history of psychogenic polydipsia, recurrent hyponatremia, hospitalized here early May for same, bipolar disorder on treatment who presents via EMS with altered mental status. History is obtained initially and speaking with the emergency department, by the time I subsequently see the patient she has cleared as able to provide more history. Patient states that she is unsure how she got to the hospital. She supposes her son activated EMS, which I believe was the case. She is quite confused in the emergency department, and she is well-known to personnel at this facility noted that she was not at her baseline. Evaluation in the emergency department revealed a sodium of 116. The emergency department she received 100 mL of 3% saline over 10 minutes, sodium increased significantly to 122. I was subse quently contacted to consult and admit the patient for altered mental status and hyponatremia. Patient states that she is currently drinking several liters a day of Pepsi. Does not appear she is drinking excess quantities of free water at this time. She thinks she was doing okay yesterday. She does complain of a dry mouth which is part of the reason that she drinks fluids. She denies any fevers or chills, no nausea or vomiting, no diarrhea. She has no shortness of breath, she is not coughing anything up. She has no chest pain. She was initially impulsive, but improved after morning doses of her usual medications. In early May, the patient presented with a similar picture, had rapid correction of her sodium with fluid restriction. She was advised to limit fluid intake to 2 L at that time. 2doing pretty well today. Had fairly rapid correction of her hyponatremia without much intervention after initial saline given in the ED. Is awake and alert, but does not feel quite strong enough to be at baseline. - Constitutional Vitals: Vital Signs Temp Pulse Resp BP Pulse Ox 97.8 F 88 16 127/67 99 06/21/19 19:15 06/21/19 19:15 06/21/19 19:15 06/21/19 19:15 06/21/19 19:15 Period Temp Pulse Resp BP Sys/Norris Pulse Ox Last 24 Hr 97.3 F-98.6 F 76-88 14-18 102-138/63-85 94-100 Intake and Output 06/21/19 06/21/19 06/21/19 05:59 13:59 21:59 Intake Total 1013 1480 1600 Output Total 850 2500 950 Balance 163 -1020 650 Weight 182 lb 8 oz Patient Weight 06/22/19 05:59 Weight 182 lb 8 oz Intake & Output: Intake & Output 06/21/19 06/21/19 06/21/19 05:59 13:59 21:59 Intake Total 1013 1480 1600 Output Total 850 2500 950 Balance 163 -1020 650 Weight 182 lb 8 oz Intake: IV 773 1000 1000 Dextrose 5% in Water 1,000 ml @ 1000 1000 125 mls/hr IV .Q8H [facility] Rx#: [id number] Oral 240 480 600 Output: Void Amount 850 2500 950 Other: Meal egg salad cup Lunch snack Percent of Meal Consumed 100% 100% 100% Feeding Ability Independent Assist with Tray Set Up Independent Urine Appearance Clear Clear Cloudy Urine Color Straw Pale Bright Yellow Urine Odor Strong Exam: General: Sleeping, arouses, in no distress Chest: Clear Cardiovascular: Regular Abdomen: Soft, nontender Neuro: Alert, oriented to person, place and situation. Moves all extremities. Less impulsive. Medical - PN: Obj Da - Labs CBC & Chem 7: 06/21/19 08:35 06/21/19 18:02 Labs: Abnormal Lab Results 06/21/19 06/21/19 06/21/19 18:02 08:35 08:35 WBC MPV 6.5 L Gran % Lymph % (Auto) Gran # POC Sodium Sodium 131 L 132 L POC Potassium Potassium POC Chloride Chloride 94 L Carbon Dioxide Anion Gap POC BUN BUN 7 L Glucose POC Glucose Calcium POC WB Ioniz Calcium 06/20/19 06/20/19 06/20/19 16:04 11:34 05:38 WBC MPV Gran % Lymph % (Auto) Gran # POC Sodium 122 L Sodium 132 L 129 L POC Potassium Potassium POC Chloride 87 L Chloride 90 L Carbon Dioxide Anion Gap POC BUN < 3 L BUN 6 L Glucose POC Glucose 128 H Calcium 10.5 H POC WB Ioniz Calcium 06/20/19 06/20/19 06/20/19 04:20 01:30 01:30 WBC 13.4 H MPV 6.6 L Gran % 81.7 H Lymph % (Auto) 13.1 L Gran # 10.9 H POC Sodium 121 L Sodium 116 L* POC Potassium 3.2 L Potassium 2.9 L* POC Chloride 84 L Chloride 78 L Carbon Dioxide 21 L Anion Gap 17.0 H POC BUN < 3 L BUN 3 L Glucose 164 H POC Glucose 120 H Calcium POC WB Ioniz Calcium 1.11 L Meds: Medications Acetaminophen (Tylenol) 650 mg PO Q4HP PRN PRN Reason: PAIN/FEVER > 101 Amlodipine Besylate (Norvasc) 10 mg PO DAILY [facility] Last Admin: 06/21/19 09:22 Dose: 10 mg Documented by: Dextrose (Dextrose 50%) 0 ml IV UD PRN PRN Reason: Hypoglycemia Diagnostic Test (Pha) (Accu-Chek) 1 each FS [facility] Last Admin: 06/21/19 20:01 Dose: 1 each Documented by: Gabapentin (Neurontin) 200 mg PO BID [facility] Last Admin: 06/21/19 20:09 Dose: 200 mg Documented by: Glucose (Insta-Glucose) 15 gm PO PRN PRN PRN Reason: Hypoglycemia Insulin Human Lispro (Humalog) 0 unit SQ [facility]; Protocol Last Admin: 06/21/19 20:01 Dose: Not Given Documented by: Lamotrigine (Lamictal) 200 mg PO DAILY [facility] Last Admin: 06/21/19 09:23 Dose: 200 mg Documented by: Levothyroxine Sodium (Synthroid) 50 mcg PO [facility] Last Admin: 06/21/19 08:53 Dose: 50 mcg Documented by: Levothyroxine Sodium (Synthroid) 112 mcg PO [facility] Last Admin: 06/21/19 08:53 Dose: 112 mcg Documented by: Liothyronine Sodium (Cytomel) 12.5 mcg PO [facility] Last Admin: 06/21/19 20:08 Dose: 12.5 mcg Documented by: Lorazepam (Ativan) 1 mg PO BID@1200,1800 [facility] Last Admin: 06/21/19 18:31 Dose: 1 mg Documented by: Nicotine (Nicoderm) 21 mg TOPICAL DAILY@1000 [facility] Last Admin: 06/21/19 09:23 Dose: 21 mg Documented by: Omeprazole (Prilosec) 20 mg PO ACB [facility] Last Admin: 06/21/19 08:53 Dose: 20 mg Documented by: Linaclotide [Linzess (] 290 Mcg Cap) 1 dose PO DAILY [facility] Last Admin: 06/21/19 09:59 Dose: Not Given Documented by: Quetiapine Fumarate (Seroquel) 50 mg PO DAILY [facility] Last Admin: 06/21/19 09:22 Dose: 50 mg Documented by: Quetiapine Fumarate (Seroquel) 400 mg PO [facility] Last Admin: 06/21/19 20:09 Dose: 400 mg Documented by: Sodium Chloride (Saline Flush) 10 ml IV Q8 [facility] Last Admin: 06/21/19 15:15 Dose: Not Given Documented by: Trazodone HCl (Desyrel) 50 mg PO [facility] Last Admin: 06/21/19 20:09 Dose: 50 mg Documented by: Medical - PN: A/P - Time Spent With Patient Total time spent is greater than 50% in coordination of care (as documented) at patient's floor/unit and/or counseling patient: (1) Hyponatremia Status: Acute Current Visit: Yes (2) Encephalopathy acute Status: Acute Current Visit: Yes (3) Polydipsia Status: Acute Current Visit: Yes (4) Diabetes mellitus type 2, controlled Status: Chronic Current Visit: Yes (5) Bipolar disorder Status: Chronic Current Visit: Yes (6) Hypertension, essential Status: Chronic Current Visit: Yes (7) Hyperlipidemia Status: Chronic Current Visit: Yes (8) Hypothyroidism (acquired) Status: Chronic Current Visit: Yes - Narrative A/P Narrative: 69-year-old female with history of polydipsia, bipolar disorder, mention of dementia in the chart presents with altered mental status. Found to have serum sodium 116. Hyponatremia. Suspect this is fairly acute resulting in encephalopathy. She received 3% saline initially in the ED with significant increase in her sodium, since then her sodium continued to correct without specific intervention. She received free water overnight, with mildly low sodiums today. Free water now stopped, will allow oral intake up to 2 L and monitor for stability. The etiology appears to be her known psychogenic polydipsia. Plan: Allow up to 2 L of oral intake daily, continue to closely monitor sodium for stability. Encephalopathy. Resolved. Suspect metabolic encephalopathy secondary to fairly acute hyponatremia. Plan: Monitor. Polydipsia. May be driven in part due to dry mouth from medications. Plan: Fluid restrict, continue to educate on importance of fluid restrictions. Bipolar disorder. Appears stable. Plan: Continue home regimen Hypertension. Stable. Plan: Continue home regimen. Hyperlipidemia. Stable. Plan continue home regimen. Hypothyroidism. Plan: Continue home regimen. CODE STATUS: DO NOT RESUSCITATE. Prophylaxis: Lovenox
[2019-06-22 06:03] LABS: Basophils # (Auto) 0 K/mcL (0.0-0.3); Basophils % (Auto) 0.5 % (0.0-2.0); Eosinophils # (Auto) 0.2 K/mcL (0.0-0.7); Granulocytes % (Auto) 56.8 % (38.0-78.0); Hematocrit 39.4 % (36.0-48.0); Lymphocytes # (Auto) 2.2 K/mcL (1.5-4.8); Lymphocytes % (Auto) 32.1 % (15.5-49.0); Mean Cell Volume 87.4 fL (80.0-100.0); Mean Corpuscular HGB Conc 33.1 g/dL (31.0-36.0); Mean Platelet Volume 6.9 fL (7.4-10.4); Monocytes # (Auto) 0.5 K/mcL (0.1-0.9); Monocytes % (Auto) 7.6 % (1.0-12.0); Platelet Count 341 K/mcL (140-440); RBC 4.51 M/mcL (4.00-5.20); Red Cell Distribution Width 13.9 % (11.5-14.5); WBC 6.9 K/mcL (4.5-11.0)
[2019-06-22 06:13] LABS: ALT/SGPT 14 U/l (0-40); AST/SGOT 13 U/l (0-37); Albumin 3.8 gm/dL (3.2-5.2); Albumin/Globulin Ratio 1.4 (1.0-2.3); Alkaline Phosphatase 87 U/L (39-117); Bilirubin,Total 0.2 mg/dL (0.0-1.0); Blood Urea Nitrogen 11 mg/dl (8-23); Calcium 10.2 mg/dl (8.6-10.4); Carbon Dioxide 25 mmol/L (22-30); Chloride 99 mmol/L (96-108); Globulin 2.8 gm/dL (2.2-3.7); Glomerular Filtration Rate 65; Glucose 95 mg/dL (70-105)
[2019-06-22] MEDS: 0.9 % SODIUM CHLORIDE 10 ML SYRINGE IV SCH (07:19)
[2019-06-22] MEDS: OMEPRAZOLE 20 MG CAPSULE PO SCH (07:38)
[2019-06-22] MEDS: LEVOTHYROXINE 50 MCG TABLET PO SCH (07:38)
[2019-06-22] MEDS: LEVOTHYROXINE SODIUM 112 MCG TABLET PO SCH (07:38)
[2019-06-22] MEDS: INSULIN LISPRO 1 UNIT/0.01 ML UNIT SQ SCH ×2 (07:40→12:33)
[2019-06-22] MEDS: NICOTINE 21 MG PATCH TOPICAL SCH (08:46)
[2019-06-22] MEDS: GABAPENTIN 100 MG CAPSULE PO SCH (08:47)
[2019-06-22] MEDS: QUEtiapine 25 MG TABLET PO SCH (08:47)
[2019-06-22] MEDS: amLODIPine 10 MG TABLET PO SCH (08:47)
[2019-06-22] MEDS: lamoTRIgine 100 MG TABLET PO SCH (09:02)
--- NOTE | 2019-06-22 09:53 | Discharge Summary ---
Medical - DS: Prov Patient information: Note initiated : 06/22/19 at 9:50 am Service Date, if different from initiated Date: [] Patient: Cynthia Kirby 69 y/o F admitted on 06/20/19 for Altered State per EMS. Chief Complaint: [] Date of admission: 06/20/19 10:24 Discharge date: 06/22/19 Primary care physician: Hailey Denis Admitting clinician: Nadiya Mckeon Consults: 06/21/19 08:15 Consult to Physician [CONS] Routine Comment: Consulting Provider: Nadiya Mckeon Reason For Exam: Physician to Consult Discharging clinician: Nadiya Mckeon Medical - DS: Meds - Discharge Medications Prescriptions: Losartan [Cozaar] 100 mg PO DAILY #30 tab Active and Home Medications: Home Medications Liothyronine Sodium 12.5 mcg PO HS 09/06/15 [History Confirmed 06/20/19 Last Taken 06/08/18] LORazepam [Ativan] 1 mg PO BID@1200,1800 06/09/18 [History Confirmed 06/20/19 Last Taken 06/08/18] Losartan/Hydrochlorothiazide [Losartan-Hctz 100-12.5 mg Tab] 1 tab PO DAILY 06/09/18 [History Confirmed 06/20/19 Last Taken 06/08/18] lamoTRIgine [Lamictal] 200 mg PO DAILY 06/09/18 [History Confirmed 06/20/19 Last Taken 06/08/18] QUEtiapine [Seroquel] 400 mg PO HS 06/10/18 [History Confirmed 06/20/19 Last Taken 06/08/18] Gabapentin [Neurontin] 200 mg PO BID 05/06/19 [History Confirmed 06/20/19 Last Taken Unknown] Levothyroxine [Synthroid] 50 mcg PO QAMAC 05/06/19 [History Confirmed 06/20/19 Last Taken Unknown] Linaclotide [Linzess] 290 mcg PO DAILY 05/06/19 [History Confirmed 06/20/19 Last Taken Unknown] QUEtiapine [Seroquel] 50 mg PO DAILY 05/06/19 [History Confirmed 06/20/19 Last Taken Unknown] traZODone HCL [Trazodone HCl] 50 mg PO HS 05/06/19 [History Confirmed 06/20/19 Last Taken Unknown] Levothyroxine Sodium [Synthroid] 112 mcg PO QAMAC 05/25/19 [History Confirmed 06/20/19 Last Taken Unknown] amLODIPine [Norvasc] 10 mg PO DAILY 05/25/19 [History Confirmed 06/20/19 Last Taken Unknown] metFORMIN HCL [Metformin ER Osmotic] 1,000 mg PO QPMCC 05/25/19 [History Confirmed 06/20/19 Last Taken Unknown] Omeprazole [PriLOSEC] 20 mg PO ACB 06/20/19 [History Confirmed 06/20/19 Last Taken Unknown] Medical - DS: Hosp Hospital Course: Ms. Kirby is a 69 year old F with a history of psychogenic polydipsia, recurrent hyponatremia, hospitalized here early May for same, bipolar disorder on treatment who presents via EMS with altered mental status. History is obtained initially and speaking with the emergency department, by the time I subsequently see the patient she has cleared as able to provide more history. Patient states that she is unsure how she got to the hospital. She supposes her son activated EMS, which I believe was the case. She is quite confused in the emergency department, and she is well-known to personnel at this facility noted that she was not at her baseline. Evaluation in the emergency department revealed a sodium of 116. The emergency department she received 100 mL of 3% saline over 10 minutes, sodium increased significantly to 122. I was subsequently contacted to consult and admit the patient for altered mental status and hyponatremia. Patient states that she is currently drinking several liters a day of Pepsi. Does not appear she is drinking excess quantities of free water at this time. She thinks she was doing okay yesterday. She does complain of a dry mouth which is part of the reason that she drinks fluids. She denies any fevers or chills, no nausea or vomiting, no diarrhea. She has no shortness of breath, she is not coughing anything up. She has no chest pain. She was initially impulsive, but improved after morning doses of her usual medications. In early May, the patient presented with a similar picture, had rapid correction of her sodium with fluid restriction. She was advised to limit fluid intake to 2 L at that time. 9/2doing pretty well today. Had fairly rapid correction of her hyponatremia without much intervention after initial saline given in the ED. Is awake and alert, but does not feel quite strong enough to be at baseline. 9/3appears to be back at baseline, little forgetful at times. Anxious about not being able to reach her son on the phone. Serum sodium is stable on a 2 L fluid restriction. Plan is to discharge to home, she has long term caregivers and home health will be resumed. I have asked for her to have a follow-up primary care in 7 to 10 days to recheck labs. She also has primary care appointment later in the month. She was on losartan/HCTZ at admission. This was discontinued and replaced with some losartan alone to avoid any thiazide effect on her serum sodium. However ultimately the etiology of her acute hyponatremia is felt to be secondary to polydipsia. Discharge diagnosis: Acute symptomatic hyponatremia Secondary discharge diagnosis: Metabolic encephalopathy, resolved Psychogenic polydipsia Bipolar disorder Hypertension Type 2 diabetes - Time Spent with Patient Total time spent providing and/or coordinating discharge services: Greater than 30 minutes Medical - DS: Exam - Constitutional Vitals: Vital Signs Temp Pulse Resp BP BP Pulse Ox 06/22/19 06:57 97.8 F 18 148/98 100 06/22/19 04:00 77 16 124/72 99 06/21/19 23:03 98 F 91 H 14 105/61 100 06/21/19 19:15 97.8 F 88 16 127/67 99 06/21/19 16:01 97.9 F 18 126/78 99 06/21/19 15:58 97.9 F 18 133/79 100 06/21/19 12:20 97.3 F 14 138/84 97 Intake and Output 06/21/19 06/22/19 06/22/19 21:59 05:59 13:59 Intake Total 1600 360 480 Output Total 950 1150 Balance 650 360 -670 Intake: IV 1000 Dextrose 5% in Water 1,000 ml @ 1000 125 mls/hr IV .Q8H [facility] Rx#: [id number] Oral 600 360 480 Output: Void Amount 950 1150 Other: Meal snack Breakfast Percent of Meal Consumed 100% 100% Feeding Ability Independent Independent Independent Urine Appearance Cloudy Cloudy Urine Color Bright Yellow Straw Urine Odor Strong Strong Weight 182 lb 8 oz Additional comments: General: Sitting up in chair in no acute distress, asking for soda Chest: Clear to auscultation, no rales Cardiovascular: Regular, no edema Abdomen: Soft, nontender Neuro: Alert, oriented person, place, situation. A little forgetful at times. Moves all extremities equally. Medical - DS: Data Labs on day of discharge: Labs from last 24 hours 06/22/19 06/22/19 06/21/19 03:46 03:43 18:02 WBC 6.9 RBC 4.51 Hgb 13.0 Hct 39.4 MCV 87.4 MCH 28.9 MCHC 33.1 RDW 13.9 Plt Count 341 MPV 6.9 L Gran % 56.8 Lymph % (Auto) 32.1 [place] % (Auto) 7.6 Eos % (Auto) 3.0 Baso % (Auto) 0.5 Gran # 3.9 Lymph # (Auto) 2.2 [place] # (Auto) 0.5 Eos # (Auto) 0.2 Baso # (Auto) 0 Sodium 138 131 L Potassium 3.6 Chloride 99 Carbon Dioxide 25 Anion Gap 14.0 BUN 11 Creatinine 0.9 GFR Calculation 65 Glucose 95 Calcium 10.2 Total Bilirubin 0.2 AST 13 ALT 14 Alkaline Phosphatase 87 Total Protein 6.6 Albumin 3.8 Globulin 2.8 Albumin/Globulin Ratio 1.4 - Impressions CT scan - head IMPRESSION: Stable age-related degenerative changes Abdominal x-ray IMPRESSION: No acute abnormality Medical - DS: A/P - Patient/Caregiver Discharge Instructions Activity: increase activity as tolerated Diet: Consistent Carbohydrate (2000 ml fluid restriction) Additional Instructions: Stop taking your medication losartan/HCTZ. Start taking the new prescription for losartan (without HCTZ). The new prescription was sent to your pharmacy. Do not drink more than 2000 mL (just over 2 quarts) of fluids a day. - Problem Maintenance (1) Hyponatremia Status: Resolved (2) Encephalopathy acute Status: Resolved (3) Polydipsia Status: Chronic (4) Diabetes mellitus type 2, controlled Status: Chronic Qualifiers: Diabetes mellitus terminologist insulin use: without terminologist use Diabetes mellitus complication status: with unspecified complications Qualified Code(s): E11.8 - Type 2 diabetes mellitus with unspecified complications (5) Bipolar disorder Status: Chronic (6) Hypertension, essential Status: Chronic (7) Hyperlipidemia Status: Chronic (8) Hypothyroidism (acquired) Status: Chronic - Follow up Plan Follow up with: Hailey Denis ARNP [Primary Care Provider] - 09/30/19 2:00 pm (Please schedule another appointment in 7-10 days to recheck labs.) Disposition: Home Health Service Care Plan Goals: This discharge packet is provided to you to help keep you informed about your care. We want to ensure you get everything you need when you go home. You will also be receiving a call from us in a few days to follow up with you and see how you are doing since your discharge. This gives us a chance to listen to any concerns you maybe experiencing since you were discharged or any additional needs you may have, as well as providing us feedback on your care experience. We strive to always provide excellent care and thank you for your feedback and for choosing [facility]. Prognosis: Fair Rehab Potential: Fair Overall status at discharge: patient is back to baseline
[2019-06-22] MEDS: LORazepam 1 MG TABLET PO SCH (12:27)
== END 2019-06-22 14:02 | disposition home health service (06) | DRG 640 ==
LOC: ED 01:09 → ICU 10:23
PROVIDERS: ADMIT Internal Medicine; ATTEND Internal Medicine

== ENCOUNTER 2020-02-19 15:07 | Inpatient (IN) ==
[2020-02-19] MEDS ORDERED: 0.9 % SODIUM CHLORIDE 1,000 ML IV ONE (15:34)
[2020-02-19] MEDS ORDERED: LEVOFLOXACIN 750 MG/150 ML BAG IV ONE (15:37)
--- NOTE | 2020-02-19 15:42 | Emergency Department Note ---
Altered Mental Status HPI - General Chief Complaint: Altered Mental Status Stated Complaint: Decreased loc Time Seen by Provider: 02/19/20 15:13 Source: EMS Mode of arrival: EMS Limitations: no limitations - History of Present Illness HPI Narrative: 69-year-old female patient brought into the emergency department via ambulance with chief complaint of altered mental status. Patient was just seen yesterday by myself after suffering a fall at home the night prior. During that visit she was complaining of pain to her right lower extremity so radiographs of both her hip and knee were obtained showing mild degenerative changes to her hip joints and severe degeneration to her knee. She was treated conservatively with anti- inflammatories and analgesics. During her evaluation her urine indicated evidence of infection so she was started on Macrobid 100 mg twice daily. Preliminary urine culture results showing Klebsiella pneumonia. Susceptibility was to follow. Today, she returns because her son was concerned about her decreased level of consciousness. I am being told that she was prescribed hydrocodone from a provider on 02/09 and there is concerned that she is taking too many. She did not mention the hydrocodone during her previous visit yesterday. At the bedside patient is obtunded and very lethargic. She is speaking in slow, garbled speech. She does mention she is here because "they were concerned about me". She does follow all of my commands and is not in any respiratory distress. She denies cough. She denies fever. She admits to ongoing pain. When questioned about why she did not mention her previous hydrocodone, she simply says "I am sorry about that". When questioned if she took too many, she did not answer the question. A review of her active problems shows the following: Nausea and vomiting, polydipsia, peptic ulcer disease, hypokalemia, hyponatremia, anxiety, panic, altered mental status, acute encephalopathy, UTI, chronic smoker, type 2 diabetes, Alzheimer's, bipolar, hypertension, hyperlipidemia, hypothyroidism, obesity, vitamin D deficiency, osteoporosis, cognitive dysfunction, schwannoma of the ear, and depression. - Related Data Home Medications Medication Instructions Recorded Confirmed Liothyronine Sodium 12.5 mcg PO HS 09/06/15 01/03/20 LORazepam [Ativan] 1 mg PO BID@1200,1800 06/09/18 01/03/20 lamoTRIgine [Lamictal] 200 mg PO DAILY 06/09/18 01/03/20 QUEtiapine [Seroquel] 400 mg PO HS 06/10/18 01/03/20 Gabapentin [Neurontin] 200 mg PO BID 05/06/19 01/03/20 Levothyroxine [Synthroid] 50 mcg PO QAMAC 05/06/19 01/03/20 Linaclotide [Linzess] 290 mcg PO DAILY 05/06/19 01/03/20 QUEtiapine [Seroquel] 50 mg PO DAILY 05/06/19 01/03/20 traZODone HCL [Trazodone HCl] 50 mg PO HS 05/06/19 01/03/20 Levothyroxine Sodium [Synthroid] 112 mcg PO QAMAC 05/25/19 01/03/20 amLODIPine [Norvasc] 10 mg PO DAILY 05/25/19 01/03/20 metFORMIN HCL [Metformin ER 1,000 mg PO QPMCC 05/25/19 01/03/20 Osmotic] Omeprazole [Prilosec] 20 mg PO ACB 06/20/19 01/03/20 Previous Rx's Medication Instructions Recorded Losartan [Cozaar] 100 mg PO DAILY #30 tab 06/22/19 Nitrofurantoin Sr [Macrobid] 100 mg PO BID #10 cap 02/18/20 Allergies Allergy/AdvReac Type Severity Reaction Status Date / Time Penicillins Allergy Severe Swelling Verified 02/19/20 15:07 of Throat Review of Systems Limitations: ROS unobtainable due to patients medical condition Past Medical History - Past Medical History Medical history: Reports: cancer, COPD, dementia, DM, hyperlipidemia, hypert ension, osteoporosis, thyroid disease, other (Psychogenic polydipsia) Psychiatric history: Reports: anxiety, bipolar 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 She is obtunded and sleepy. She does follow all my commands albeit very slowly. She is speaking a very slow, garbled speech.) Head: atraumatic, normocephalic Eye: Present: PERRL (Pupils are pinpoint 2-3 mm and sluggish.), miosis (constriction). Absent: scleral icterus ENT: Present: normal oropharynx, mucous membranes moist Neck: Present: trachea midline. Absent: lymphadenopathy, thyromegaly Chest: Present: symmetric chest wall rise Respiratory: Present: decreased breath sounds. Absent: normal lung sounds bilaterally, respiratory distress, rales/crackles, wheezes, prolonged expiratory phase (Rhonchi are heard to the bases and mid chest bilateral) Cardiovascular: Present: regular rate, normal rhythm. Absent: systolic murmur, diastolic murmur Abdominal: Present: soft. Absent: distention, tenderness, guarding, rebound, rigidity, organomegaly, mass Extremities: Present: normal inspection, tenderness (Tenderness palpation of the right knee joint.). Absent: full ROM, normal capillary refill, pedal edema Neurological: Absent: alert Patient oriented to: Present: person, place, time Speech: Present: slurred Motor strength - LUE: 5/5 Motor strength - RUE: 5/5 Motor strength - LLE: 5/5 Motor strength - RLE: 5/5 DTR: 2+: biceps (L), biceps (R), patellar (L), patellar (R) Coma Scale Eye Opening: To Voice Coma Scale Motor Response: Obeys Commands Coma Scale Verbal Response: Confused Coma Scale Total: 13 Psychiatric: Present: other (Appears very sleepy.) Skin: Present: warm, dry Course Course Narrative: Patient was brought into the emergency department and a history of physical exam was performed. Patient is very obtunded and lethargic. This is in horan contrast to yesterday's visit when she was alert and orientated. She now more febrile with an elevated heart rate. Saline lock established and laboratory studies were drawn. Portable chest x-ray was ordered and reviewed. Patient was noted to be hypoxic and was started on nasal cannula oxygen 2 L/min. Upon reevaluation patient continues to be very lethargic on the emergency room gurney. She simply tells me "I feel really tired and want to sleep some more". When questioned about her hydrocodone use for more time she is unsure how much she took earlier today. A review the patient's laboratory studies show the following: CBC WBC 12.5, RBC 4.25, hemoglobin 10.8, hematocrit at 38.7, platelets 247. CMP total bilirubin 2.6, AST 992, ALT 1000 123, alkaline phosphatase 298, all others normal limits. Lactic acid 1.7. Urine toxicology screen was negative. Salicylates less than 0.3. Acetaminophen less than 5.0. Blood alcohol less than 0.010. Portable chest x-ray was read by myself my collaborating physician (Dr. Hess) without any developing pulmonary infiltrate. This will be over read by radiologist next 12-24 hours. Twelve- lead EKG showing sinus rhythm at a rate of 89 bpm. Several premature atrial contractions. After reviewing all the data I discussed these findings with my collaborating physician (Dr. Hess). At this time she has considerably elevated liver functions. She also continues to be somewhat altered. Based on all of these findings patient likely meets admissions criteria. With this in mind I reached out to the hospitalist (Dr. Post) about possibly admitting this patient to our facility. While waiting to talk to the hospitalist, Dr. Hess recommended an ammonia level as well as a liver ultrasound to help determine the underlying cause of the patient's elevated LFTs. After Dr. Hess evaluated the patient it was decided that an abdominal CT scan was more appropriate this time. Abdominal CT scan with contrast was ordered. The hospitalist reach out to me and we discussed the case. At this time Dr. Post I recommended several more tests including a noncontrast head CT, microscopic urinalysis, manual differential of her CBC looking for bandemia, and a arterial blood gas. He mentioned that due to the possibility of acute liver failure patient may be best served by referral to windshield repair technician. However, he would like to get the additional test back I will discuss case further. These additional tests were ordered as recommended. Manual differential of the CBC showing band neutrophil percent 12 and lymphocyte percent 4. All others normal limits. PT 14.5. INR 1.1. Ammonia 23. Urinalysis shows no evidence of infection. After reviewing all the additional data I attempted to reach out to a windshield repair technician to [facility]. Unfortunately, they have not called our facility back as of yet. He is now shift change and I have given full patient report to my collaborating physician (Dr. Grimes). He was made aware that the hospitalist requested a GI consult prior to any admission here to our facility. At this time my collaborating physician is accepted the patient's care. All further treatment decisions, modalities, and ultimate patient disposition will be carried out by Dr. Grimes. Vital Signs Temperature 100.7 F H 02/19/20 15:07 Pulse Rate 92 H 02/19/20 15:07 Respiratory Rate 23 H 02/19/20 15:07 Blood Pressure 151/65 02/19/20 15:07 Pulse Oximetry (%) 82 L 02/19/20 15:07 Temperature 100.7 F H 02/19/20 15:07 Pulse Rate 101 H 02/19/20 20:14 Respiratory Rate 20 02/19/20 20:31 Blood Pressure 137/69 02/19/20 21:32 Pulse Oximetry (%) 97 02/19/20 21:32 Altered Mental Status - Lab Data Lab results reviewed: Yes I reviewed the patient's lab results. Result diagrams: 02/19/20 15:52 02/19/20 15:52 Lab Results 02/19/20 02/19/20 02/19/20 Range/Units 15:52 15:52 15:52 WBC 12.5 H (4.50-11.00) K/mcL RBC 4.25 (3.59-5.38) M/mcL Hgb 11.8 (11.2-15.7) g/dL Hct 38.7 (34.1-44.9) % MCV 91.1 (80.0-100.0) fL MCH 27.8 (26.0-34.0) pg MCHC 30.5 L (31.0-36.0) g/dL RDW 14.9 H (11.5-14.5) % Plt Count 247 (140-440) K/mcL MPV 9.4 (7.4-10.4) fL Gran % 89.7 H (38.0-78.0) % Lymph % (Auto) 4.2 L (15.5-49.0) % [place] % (Auto) 4.7 (1.0-12.0) % Eos % (Auto) 1.2 (0.0-7.0) % Baso % (Auto) 0.2 (0.0-2.0) % Gran # 11.19 H (1.80-8.00) K/mcL Lymph # (Auto) 0.53 L (1.50-4.80) K/mcL [place] # (Auto) 0.59 (0.10-0.90) K/mcL Eos # (Auto) 0.15 (0.00-0.70) K/mcL Baso # (Auto) 0.03 (0.00-0.30) K/mcL Total Counted Seg Neutrophils % (38-78) % Band Neutrophils % (0-10) % Lymphocytes % (15-49) % Monocytes % (Manual) (1-12) % Eosinophils % (Manual) (0-7) % Reactive Lymphocytes (0-2) % Platelet Estimate (NORMAL) RBC Morphology (NORMAL) PT (11.9-14.5) sec INR (0.9-1.1) VBG Lactic Acid 1.7 (0.5-2.0) mmol/L Sodium 138 (133-145) mmol/L Potassium 4.2 (3.3-5.1) mmol/L Chloride 100 (96-108) mmol/L Carbon Dioxide 25 (22-30) mmol/L Anion Gap 13.0 (8-16) BUN 12 (8-23) mg/dl Creatinine 1.1 (0.6-1.1) mg/dl GFR Calculation 51 Glucose 87 (70-105) mg/dL Calcium 9.2 (8.6-10.4) mg/dl Total Bilirubin 2.6 H (0.0-1.0) mg/dL GGT (5-36) U/L AST 992 H (0-37) U/l ALT 1123 H (0-40) U/l Alkaline Phosphatase 298 H (39-117) U/L Ammonia (11-51) umol/L Total Protein 7.3 (5.9-8.4) gm/dL Albumin 4.0 (3.2-5.2) gm/dL Globulin 3.3 (2.2-3.7) gm/dL Albumin/Globulin Ratio 1.2 (1.0-2.3) Urine Color Urine Appearance Urine pH (5.0-9.0) Ur Specific [place] (1.000-1.035) Urine Protein (NEG) mg/dL Urine Glucose (UA) (NEG) mg/dL Urine Ketones (NEG) mg/dL Urine Occult Blood (<0.03) mg/dL Urine Nitrate (NEG) Urine Bilirubin (NEG) mg/dL Urine Urobilinogen (NEG) mg/dL Ur Leukocyte Esterase (NEG) /uL Urine RBC (0-1) /hpf Urine WBC (0-4) /hpf Ur Squamous Epith Cells (0-4) /hpf Urine Bacteria (0) /hpf Urine Mucus (0) /hpf Ur Culture Indicated? Salicylates mg/dL Urine Opiates Screen (NONDETECTED) Ur Opiates Confirm Ur Oxycodone Screen (NONDETECTED) Urine Methadone Screen (NONDETECTED) Ur Methadone Confirm Acetaminophen ug/mL Ur Barbiturates Screen (NONDETECTED) Ur Barbiturate Confirm Ur Phencyclidine Scrn (NONDETECTED) Urine PCP Confirm Ur Amphetamines Screen (NONDETECTED) U Amphetamines Confirm U Benzodiazepines Scrn (NONDETECTED) U Benzodiazepine Confm Urine Cocaine Screen (NONDETECTED) Urine Cocaine Confirm U Cannabinoids Confirm U Marijuana (THC) Screen (NONDETECTED) Ethyl Alcohol (<0.010) gm/dl 02/19/20 02/19/20 02/19/20 Range/Units 15:52 15:52 15:52 WBC (4.50-11.00) K/mcL RBC (3.59-5.38) M/mcL Hgb (11.2-15.7) g/dL Hct (34.1-44.9) % MCV (80.0-100.0) fL MCH (26.0-34.0) pg MCHC (31.0-36.0) g/dL RDW (11.5-14.5) % Plt Count (140-440) K/mcL MPV (7.4-10.4) fL Gran % (38.0-78.0) % Lymph % (Auto) (15.5-49.0) % [place] % (Auto) (1.0-12.0) % Eos % (Auto) (0.0-7.0) % Baso % (Auto) (0.0-2.0) % Gran # (1.80-8.00) K/mcL Lymph # (Auto) (1.50-4.80) K/mcL [place] # (Auto) (0.10-0.90) K/mcL Eos # (Auto) (0.00-0.70) K/mcL Baso # (Auto) (0.00-0.30) K/mcL Total Counted Seg Neutrophils % (38-78) % Band Neutrophils % (0-10) % Lymphocytes % (15-49) % Monocytes % (Manual) (1-12) % Eosinophils % (Manual) (0-7) % Reactive Lymphocytes (0-2) % Platelet Estimate (NORMAL) RBC Morphology (NORMAL) PT (11.9-14.5) sec INR (0.9-1.1) VBG Lactic Acid (0.5-2.0) mmol/L Sodium (133-145) mmol/L Potassium (3.3-5.1) mmol/L Chloride (96-108) mmol/L Carbon Dioxide (22-30) mmol/L Anion Gap (8-16) BUN (8-23) mg/dl Creatinine (0.6-1.1) mg/dl GFR Calculation Glucose (70-105) mg/dL Calcium (8.6-10.4) mg/dl Total Bilirubin (0.0-1.0) mg/dL GGT (5-36) U/L AST (0-37) U/l ALT (0-40) U/l Alkaline Phosphatase (39-117) U/L Ammonia (11-51) umol/L Total Protein (5.9-8.4) gm/dL Albumin (3.2-5.2) gm/dL Globulin (2.2-3.7) gm/dL Albumin/Globulin Ratio (1.0-2.3) Urine Color Urine Appearance Urine pH (5.0-9.0) Ur Specific [place] (1.000-1.035) Urine Protein (NEG) mg/dL Urine Glucose (UA) (NEG) mg/dL Urine Ketones (NEG) mg/dL Urine Occult Blood (<0.03) mg/dL Urine Nitrate (NEG) Urine Bilirubin (NEG) mg/dL Urine Urobilinogen (NEG) mg/dL Ur Leukocyte Esterase (NEG) /uL Urine RBC (0-1) /hpf Urine WBC (0-4) /hpf Ur Squamous Epith Cells (0-4) /hpf Urine Bacteria (0) /hpf Urine Mucus (0) /hpf Ur Culture Indicated? Salicylates < 0.3 mg/dL Urine Opiates Screen None detected (NONDETECTED) Ur Opiates Confirm Not Reportable Ur Oxycodone Screen None detected (NONDETECTED) Urine Methadone Screen None detected (NONDETECTED) Ur Methadone Confirm Not Reportable Acetaminophen < 5.0 ug/mL Ur Barbiturates Screen None detected (NONDETECTED) Ur Barbiturate Confirm Not Reportable Ur Phencyclidine Scrn None detected (NONDETECTED) Urine PCP Confirm Not Reportable Ur Amphetamines Screen None detected (NONDETECTED) U Amphetamines Confirm Not Reportable U Benzodiazepines Scrn None detected (NONDETECTED) U Benzodiazepine Confm Not Reportable Urine Cocaine Screen None detected (NONDETECTED) Urine Cocaine Confirm Not Reportable U Cannabinoids Confirm Not Reportable U Marijuana (THC) Screen None detected (NONDETECTED) Ethyl Alcohol (<0.010) gm/dl 02/19/20 02/19/20 02/19/20 Range/Units 15:52 15:52 15:52 WBC (4.50-11.00) K/mcL RBC (3.59-5.38) M/mcL Hgb (11.2-15.7) g/dL Hct (34.1-44.9) % MCV (80.0-100.0) fL MCH (26.0-34.0) pg MCHC (31.0-36.0) g/dL RDW (11.5-14.5) % Plt Count (140-440) K/mcL MPV (7.4-10.4) fL Gran % (38.0-78.0) % Lymph % (Auto) (15.5-49.0) % [place] % (Auto) (1.0-12.0) % Eos % (Auto) (0.0-7.0) % Baso % (Auto) (0.0-2.0) % Gran # (1.80-8.00) K/mcL Lymph # (Auto) (1.50-4.80) K/mcL [place] # (Auto) (0.10-0.90) K/mcL Eos # (Auto) (0.00-0.70) K/mcL Baso # (Auto) (0.00-0.30) K/mcL Total Counted 100 Seg Neutrophils % 76 (38-78) % Band Neutrophils % 12 H (0-10) % Lymphocytes % 4 L (15-49) % Monocytes % (Manual) 5 (1-12) % Eosinophils % (Manual) 2 (0-7) % Reactive Lymphocytes 1 (0-2) % Platelet Estimate Normal (NORMAL) RBC Morphology Normal (NORMAL) PT 14.5 (11.9-14.5) sec INR 1.1 (0.9-1.1) VBG Lactic Acid (0.5-2.0) mmol/L Sodium (133-145) mmol/L Potassium (3.3-5.1) mmol/L Chloride (96-108) mmol/L Carbon Dioxide (22-30) mmol/L Anion Gap (8-16) BUN (8-23) mg/dl Creatinine (0.6-1.1) mg/dl GFR Calculation Glucose (70-105) mg/dL Calcium (8.6-10.4) mg/dl Total Bilirubin (0.0-1.0) mg/dL GGT (5-36) U/L AST (0-37) U/l ALT (0-40) U/l Alkaline Phosphatase (39-117) U/L Ammonia (11-51) umol/L Total Protein (5.9-8.4) gm/dL Albumin (3.2-5.2) gm/dL Globulin (2.2-3.7) gm/dL Albumin/Globulin Ratio (1.0-2.3) Urine Color Urine Appearance Urine pH (5.0-9.0) Ur Specific [place] (1.000-1.035) Urine Protein (NEG) mg/dL Urine Glucose (UA) (NEG) mg/dL Urine Ketones (NEG) mg/dL Urine Occult Blood (<0.03) mg/dL Urine Nitrate (NEG) Urine Bilirubin (NEG) mg/dL Urine Urobilinogen (NEG) mg/dL Ur Leukocyte Esterase (NEG) /uL Urine RBC (0-1) /hpf Urine WBC (0-4) /hpf Ur Squamous Epith Cells (0-4) /hpf Urine Bacteria (0) /hpf Urine Mucus (0) /hpf Ur Culture Indicated? Salicylates mg/dL Urine Opiates Screen (NONDETECTED) Ur Opiates Confirm Ur Oxycodone Screen (NONDETECTED) Urine Methadone Screen (NONDETECTED) Ur Methadone Confirm Acetaminophen ug/mL Ur Barbiturates Screen (NONDETECTED) Ur Barbiturate Confirm Ur Phencyclidine Scrn (NONDETECTED) Urine PCP Confirm Ur Amphetamines Screen (NONDETECTED) U Amphetamines Confirm U Benzodiazepines Scrn (NONDETECTED) U Benzodiazepine Confm Urine Cocaine Screen (NONDETECTED) Urine Cocaine Confirm U Cannabinoids Confirm U Marijuana (THC) Screen (NONDETECTED) Ethyl Alcohol < 0.010 (<0.010) gm/dl 02/19/20 02/19/20 02/19/20 Range/Units 15:52 15:52 19:30 WBC (4.50-11.00) K/mcL RBC (3.59-5.38) M/mcL Hgb (11.2-15.7) g/dL Hct (34.1-44.9) % MCV (80.0-100.0) fL MCH (26.0-34.0) pg MCHC (31.0-36.0) g/dL RDW (11.5-14.5) % Plt Count (140-440) K/mcL MPV (7.4-10.4) fL Gran % (38.0-78.0) % Lymph % (Auto) (15.5-49.0) % [place] % (Auto) (1.0-12.0) % Eos % (Auto) (0.0-7.0) % Baso % (Auto) (0.0-2.0) % Gran # (1.80-8.00) K/mcL Lymph # (Auto) (1.50-4.80) K/mcL [place] # (Auto) (0.10-0.90) K/mcL Eos # (Auto) (0.00-0.70) K/mcL Baso # (Auto) (0.00-0.30) K/mcL Total Counted Seg Neutrophils % (38-78) % Band Neutrophils % (0-10) % Lymphocytes % (15-49) % Monocytes % (Manual) (1-12) % Eosinophils % (Manual) (0-7) % Reactive Lymphocytes (0-2) % Platelet Estimate (NORMAL) RBC Morphology (NORMAL) PT (11.9-14.5) sec INR (0.9-1.1) VBG Lactic Acid (0.5-2.0) mmol/L Sodium (133-145) mmol/L Potassium (3.3-5.1) mmol/L Chloride (96-108) mmol/L Carbon Dioxide (22-30) mmol/L Anion Gap (8-16) BUN (8-23) mg/dl Creatinine (0.6-1.1) mg/dl GFR Calculation Glucose (70-105) mg/dL Calcium (8.6-10.4) mg/dl Total Bilirubin (0.0-1.0) mg/dL GGT 463 H (5-36) U/L AST (0-37) U/l ALT (0-40) U/l Alkaline Phosphatase (39-117) U/L Ammonia 23 (11-51) umol/L Total Protein (5.9-8.4) gm/dL Albumin (3.2-5.2) gm/dL Globulin (2.2-3.7) gm/dL Albumin/Globulin Ratio (1.0-2.3) Urine Color Yellow Urine Appearance Clear Urine pH 7.0 (5.0-9.0) Ur Specific [place] 1.003 (1.000-1.035) Urine Protein Neg (NEG) mg/dL Urine Glucose (UA) Negative (NEG) mg/dL Urine Ketones Neg (NEG) mg/dL Urine Occult Blood Neg (<0.03) mg/dL Urine Nitrate Neg (NEG) Urine Bilirubin Neg (NEG) mg/dL Urine Urobilinogen Neg (NEG) mg/dL Ur Leukocyte Esterase Neg (NEG) /uL Urine RBC 0 (0-1) /hpf Urine WBC < 1 (0-4) /hpf Ur Squamous Epith Cells < 1 (0-4) /hpf Urine Bacteria 0 (0) /hpf Urine Mucus Few (0) /hpf Ur Culture Indicated? No Salicylates mg/dL Urine Opiates Screen (NONDETECTED) Ur Opiates Confirm Ur Oxycodone Screen (NONDETECTED) Urine Methadone Screen (NONDETECTED) Ur Methadone Confirm Acetaminophen ug/mL Ur Barbiturates Screen (NONDETECTED) Ur Barbiturate Confirm Ur Phencyclidine Scrn (NONDETECTED) Urine PCP Confirm Ur Amphetamines Screen (NONDETECTED) U Amphetamines Confirm U Benzodiazepines Scrn (NONDETECTED) U Benzodiazepine Confm Urine Cocaine Screen (NONDETECTED) Urine Cocaine Confirm U Cannabinoids Confirm U Marijuana (THC) Screen (NONDETECTED) Ethyl Alcohol (<0.010) gm/dl - Radiology Data Radiology results reviewed: Yes I reviewed the patient's radiology results. Portable chest x-ray reviewed showing no acute pulmonary infiltrates. This will be over read by radiologist next 12-24 hours. - EKG Data EKG attestation: Yes I reviewed and interpreted this EKG., Yes There are no EKG findings of acute coronary syndrome Disposition Pt seen by MANAGER RESIDENTIAL/PA only: No (Dr. Grimes) Clinical Impression: Elevated liver function tests Altered mental status Qualifiers: Altered mental status type: unspecified Qualified Code(s): R41.82 - Altered mental status, unspecified Disposition: Still a Patient Condition: Serious Additional Instructions: It is now shift change and a full patient report has been given to my collaborating physician (Dr. Grimes). All further treatment decisions, modal ities, and ultimate patient disposition will be carried out by Dr. Grimes. Referrals: Hailey Denis, PHOTORESIST PRINTER [Primary Care Provider] -
[2020-02-19 16:31] LABS: Basophils # (Auto) 0.03 K/mcL (0.00-0.30); Basophils % (Auto) 0.2 % (0.0-2.0); Eosinophils # (Auto) 0.15 K/mcL (0.00-0.70); Eosinophils % (Auto) 1.2 % (0.0-7.0); Granulocytes % (Auto) 89.7 % (38.0-78.0); Hematocrit 38.7 % (34.1-44.9); Hemoglobin 11.8 g/dL (11.2-15.7); Lymphocytes # (Auto) 0.53 K/mcL (1.50-4.80); Lymphocytes % (Auto) 4.2 % (15.5-49.0); Mean Cell Volume 91.1 fL (80.0-100.0); Mean Corpuscular HGB Conc 30.5 g/dL (31.0-36.0); Mean Platelet Volume 9.4 fL (7.4-10.4); Monocytes # (Auto) 0.59 K/mcL (0.10-0.90); Monocytes % (Auto) 4.7 % (1.0-12.0); Platelet Count 247 K/mcL (140-440); RBC 4.25 M/mcL (3.59-5.38); Red Cell Distribution Width 14.9 % (11.5-14.5); WBC 12.5 K/mcL (4.50-11.00)
[2020-02-19 16:50] LABS: Albumin/Globulin Ratio 1.2 (1.0-2.3); Alkaline Phosphatase 298 U/L (39-117); Bilirubin,Total 2.6 mg/dL (0.0-1.0); Blood Urea Nitrogen 12 mg/dl (8-23); Calcium 9.2 mg/dl (8.6-10.4); Carbon Dioxide 25 mmol/L (22-30); Chloride 100 mmol/L (96-108); Globulin 3.3 gm/dL (2.2-3.7); Glomerular Filtration Rate 51; Glucose 87 mg/dL (70-105)
[2020-02-19 17:09] LABS: ALT/SGPT 1123 U/l (0-40); AST/SGOT 992 U/l (0-37)
[2020-02-19 17:33] LABS: Alcohol, Blood < 10.0 mg/dL (<10); Alcohol,Blood < 0.010 gm/dl (<0.010)
[2020-02-19 18:00] LABS: Amphetamine Screen,Urine NONE DETECTED (NONDETECTED); Barbiturate Screen,Urine NONE DETECTED (NONDETECTED); Benzodiazepines Screen,Urine NONE DETECTED (NONDETECTED); Cannabinoid Screen,Urine NONE DETECTED (NONDETECTED); Cocaine Screen,Urine NONE DETECTED (NONDETECTED); Opiate Screen,Urine NONE DETECTED (NONDETECTED); Oxycodone, Urine Screen NONE DETECTED (NONDETECTED); Phencyclidine Screen,Urine NONE DETECTED (NONDETECTED)
--- NOTE | 2020-02-19 19:08 | XRay Report ---
CLINICAL INFORMATION: 69 y/o F. Altered Mental Status, hypoxia, COMPARISON: 05/06/2019 FINDINGS: Heart size, mediastinum and pulmonary vessels are normal. Mild bibasilar airspace disease likely atelectasis. No effusions IMPRESSION: Mild bibasilar airspace disease - likely atelectasis Interpreted and Authenticated by: Paul Harper 02/19/20
[2020-02-19 19:15] LABS: INR 1.1 (0.9-1.1); Prothrombin Time 14.5 sec (11.9-14.5)
--- NOTE | 2020-02-19 19:56 | Cat Scan Report ---
CLINICAL INFORMATION: Elevated LFTs and abdominal pain COMPARISON: 05/06/2019 TECHNIQUE: Following enteric contrast, 80 cc of Isovue-370 were injected intravenously, and 60 seconds later, 0.625 mm helical slices were obtained from the mid heart through the subtrochanteric regions. Following reconstruction, 2.5 mm sagittal, coronal and axial reformatted images were processed and reviewed at bone, lung and soft tissue windows. Five minutes later, 0.625 mm helical slices were obtained from the mid heart through the kidneys and viewed at soft tissue windows.The exam was performed using radiation dose optimization techniques including, but not limited to, automated exposure control, adjustment of the mA and/or kV according to patient size and use of iterative reconstruction technique. FINDINGS: Lung bases show subsegmental atelectasis in both posterior lower lobes. No effusions. The heart is mildly enlarged with mitral annular calcification. Abdominal images show the gallbladder and bile ducts, liver, spleen, pancreas are normal. The aorta contains plaque, but is normal diameter. Scattered cysts throughout both kidneys stable since 2014. There is an 8 mm adenoma in the left adrenal gland also stable. There is no free air, free fluid and no adenopathy. The stomach, small bowel, large bowel are normal. Pelvic images show hysterectomy and oophorectomy changes. The urinary bladder is moderately distended, but without focal lesion. Bone windows show no osseous abnormality IMPRESSION: 1. No acute disease. 2. Scattered bilateral renal cysts stable since 2014. 3. 8 mm adenoma left adrenal gland - stable. 4. Moderate urinary bladder distention Interpreted and Authenticated by: Paul Harper 02/19/20
--- NOTE | 2020-02-19 20:00 | Cat Scan Report ---
CLINICAL INFORMATION: Altered level of consciousness COMPARISON: 06/20/2019 TECHNIQUE: 2.5 mm helical slices were obtained in the skull base to vertex. Following reconstruction, axial reformatted images were reviewed at bone and parenchymal windows. The exam was performed using radiation dose optimization techniques including, but not limited to, automated exposure control, adjustment of the mA and/or kV according to patient size and use of iterative reconstruction technique. FINDINGS: The ventricles, sulci, fissures, and cisterns are symmetrically enlarged compatible with mild age-related atrophy. No extra-axial fluid collections are identified. Mild patchy chronic ischemic changes in the cerebral white matter expected for age and stable. A 1 cm remote lacunar infarct in the medial right occipital lobe is again noted. There is no evidence of hemorrhage, mass effect, or edema. Heavy calcific plaque is present within the intracranial left vertebral artery with moderate amount of the cavernous portion of both intracranial internal carotid arteries. Bone windows show no osseous abnormality. IMPRESSION: Mild atrophy with chronic ischemic changes in the deep cerebral white matter and remote lacunar infarct medial right occipital lobe are all stable - no acute findings. Interpreted and Authenticated by: Paul Harper 02/19/20
[2020-02-19 20:03] LABS: Appearance,Urine CLEAR; Bacteria,Urine 0 /hpf (0); Bilirubin,Urine NEG (NEG); Color,Urine YELLOW; Culture Indicated,Urine NO; Glucose,Urine (UA) NEGATIVE (NEG); Ketones,Urine NEG (NEG); Leukocyte Esterase,Urine NEG /uL (NEG); Mucus,Urine FEW /hpf (0); Nitrate,Urine NEG (NEG); Protein,Urine NEG (NEG); Specific Gravity,Urine 1.003 (1.000-1.035); Urine Blood NEG mg/dL (<0.03); Urine RBC 0 /hpf (0-1); Urine Squamous Epithelial Cell < 1 /hpf (0-4); Urine WBC < 1 /hpf (0-4); Urobilinogen,Urine NEG (NEG)
[2020-02-19 20:27] LABS: Band Neutrophils % 12 % (0-10); Eosinophils % (Manual) 2 % (0-7); Lymphocytes % 4 % (15-49); Monocytes % (Manual) 5 % (1-12); Platelet Estimate NORMAL (NORMAL); RBC Morphology NORMAL (NORMAL); Reactive Lymphocytes 1 % (0-2); Segmented Neutrophils % 76 % (38-78)
[2020-02-20] MEDS ORDERED: cefTRIAXone 1 GM VIAL IV ONE (01:39)
[2020-02-20] MEDS ORDERED: ENOXAPARIN 60 MG/0.6 ML SYRINGE SQ ONE (01:40)
[2020-02-20] MEDS ORDERED: 0.9 % SODIUM CHLORIDE 1,000 ML IV SCH (01:45)
--- NOTE | 2020-02-20 01:47 | Emergency Department Note ---
General Adult HPI - General Chief complaint: Altered Mental Status Stated complaint: Decreased loc Time Seen by Provider: 02/19/20 15:13 Source: EMS Mode of arrival: EMS Limitations: altered mental status - History of Present Illness HPI Narrative: See history and physical dictated by Filemon Hutton PA-C. I awaited phone call back from hand mica plate layer which did not occur from [facility]. Dr. Post, hospitalist, invited conversation with another hand mica plate layer from a different facility and this was requested at [facility], and eventually I spoke with Dr. Dove around 11:59 PM. It was a difficult connection as he was traveling through an area with decreased receptionist airline lounge. With transaminases over thousand he and a handful of things that can cause this but we were cut off before this conversation was completed. My attempt to call him back I requested to clarify this but he never called back. It appears the patient does not have significant alcohol history or denied earlier. Her drug screen was negative for opiates, hydrocodone, acetaminophen. In the end, hospitalist, Dr. Melquiades Post, was willing to accept this patient with diagnoses of acute hepatitis and mental status changes. Transition orders entered at his request including normal saline 100 cc/h, lab inpatient panel plus INR in the morning, etc. - Related Data Home Medications Medication Instructions Recorded Confirmed Liothyronine Sodium 12.5 mcg PO HS 09/06/15 02/20/20 LORazepam [Ativan] 1 mg PO BID@1200,1800 06/09/18 02/20/20 lamoTRIgine [Lamictal] 200 mg PO DAILY 06/09/18 02/20/20 QUEtiapine [Seroquel] 400 mg PO HS 06/10/18 02/20/20 Gabapentin [Neurontin] 200 mg PO BID 05/06/19 02/20/20 Levothyroxine [Synthroid] 50 mcg PO QAMAC 05/06/19 02/20/20 Linaclotide [Linzess] 290 mcg PO DAILY 05/06/19 02/20/20 QUEtiapine [Seroquel] 50 mg PO DAILY 05/06/19 02/20/20 traZODone HCL [Trazodone HCl] 50 mg PO HS 05/06/19 02/20/20 Levothyroxine Sodium [Synthroid] 112 mcg PO QAMAC 05/25/19 02/20/20 amLODIPine [Norvasc] 10 mg PO DAILY 05/25/19 02/20/20 metFORMIN HCL [Metformin ER 1,000 mg PO QPMCC 05/25/19 02/20/20 Osmotic] Omeprazole [Prilosec] 20 mg PO ACB 06/20/19 02/20/20 Previous Rx's Medication Instructions Recorded Losartan [Cozaar] 100 mg PO DAILY #30 tab 06/22/19 Nitrofurantoin Sr [Macrobid] 100 mg PO BID #10 cap 02/18/20 Allergies Allergy/AdvReac Type Severity Reaction Status Date / Time Penicillins Allergy Severe Swelling Verified 02/19/20 15:07 of Throat Past Medical History - Past Medical History Medical history: Reports: cancer, COPD, dementia, DM, hyperlipidemia, hypertension, osteoporosis, thyroid disease, other (Psychogenic polydipsia) Psychiatric history: Reports: anxiety, bipolar [employer]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 She is obtunded and sleepy. She does follow all my commands albeit very slowly. She is speaking a very slow, garbled speech.) Course Vital Signs Temperature 100.7 F H 02/19/20 15:07 Pulse Rate 92 H 02/19/20 15:07 Respiratory Rate 23 H 02/19/20 15:07 Blood Pressure 151/65 02/19/20 15:07 Pulse Oximetry (%) 82 L 02/19/20 15:07 Temperature 98.7 F 02/20/20 06:30 Pulse Rate 91 H 02/20/20 07:17 Respiratory Rate 20 02/20/20 06:30 Blood Pressure 121/61 02/20/20 06:30 Pulse Oximetry (%) 93 02/20/20 06:30 Medical Decision Making - Lab Data Result diagrams: 02/20/20 08:18 02/20/20 05:05 Lab Results 02/19/20 02/19/20 02/19/20 Range/Units 15:52 15:52 15:52 WBC 12.5 H (4.50-11.00) K/mcL RBC 4.25 (3.59-5.38) M/mcL Hgb 11.8 (11.2-15.7) g/dL Hct 38.7 (34.1-44.9) % MCV 91.1 (80.0-100.0) fL MCH 27.8 (26.0-34.0) pg MCHC 30.5 L (31.0-36.0) g/dL RDW 14.9 H (11.5-14.5) % Plt Count 247 (140-440) K/mcL MPV 9.4 (7.4-10.4) fL Gran % 89.7 H (38.0-78.0) % Lymph % (Auto) 4.2 L (15.5-49.0) % [place] % (Auto) 4.7 (1.0-12.0) % Eos % (Auto) 1.2 (0.0-7.0) % Baso % (Auto) 0.2 (0.0-2.0) % Gran # 11.19 H (1.80-8.00) K/mcL Lymph # (Auto) 0.53 L (1.50-4.80) K/mcL [place] # (Auto) 0.59 (0.10-0.90) K/mcL Eos # (Auto) 0.15 (0.00-0.70) K/mcL Baso # (Auto) 0.03 (0.00-0.30) K/mcL Total Counted Seg Neutrophils % (38-78) % Band Neutrophils % (0-10) % Lymphocytes % (15-49) % Monocytes % (Manual) (1-12) % Eosinophils % (Manual) (0-7) % Reactive Lymphocytes (0-2) % Platelet Estimate (NORMAL) RBC Morphology (NORMAL) PT (11.9-14.5) sec INR (0.9-1.1) VBG Lactic Acid 1.7 (0.5-2.0) mmol/L Sodium 138 (133-145) mmol/L Potassium 4.2 (3.3-5.1) mmol/L Chloride 100 (96-108) mmol/L Carbon Dioxide 25 (22-30) mmol/L Anion Gap 13.0 (8-16) BUN 12 (8-23) mg/dl Creatinine 1.1 (0.6-1.1) mg/dl GFR Calculation 51 Glucose 87 (70-105) mg/dL Calcium 9.2 (8.6-10.4) mg/dl Total Bilirubin 2.6 H (0.0-1.0) mg/dL GGT (5-36) U/L AST 992 H (0-37) U/l ALT 1123 H (0-40) U/l Alkaline Phosphatase 298 H (39-117) U/L Ammonia (11-51) umol/L Total Protein 7.3 (5.9-8.4) gm/dL Albumin 4.0 (3.2-5.2) gm/dL Globulin 3.3 (2.2-3.7) gm/dL Albumin/Globulin Ratio 1.2 (1.0-2.3) Urine Color Urine Appearance Urine pH (5.0-9.0) Ur Specific [place] (1.000-1.035) Urine Protein (NEG) mg/dL Urine Glucose (UA) (NEG) mg/dL Urine Ketones (NEG) mg/dL Urine Occult Blood (<0.03) mg/dL Urine Nitrate (NEG) Urine Bilirubin (NEG) mg/dL Urine Urobilinogen (NEG) mg/dL Ur Leukocyte Esterase (NEG) /uL Urine RBC (0-1) /hpf Urine WBC (0-4) /hpf Ur Squamous Epith Cells (0-4) /hpf Urine Bacteria (0) /hpf Urine Mucus (0) /hpf Ur Culture Indicated? Salicylates mg/dL Urine Opiates Screen (NONDETECTED) Ur Opiates Confirm Ur Oxycodone Screen (NONDETECTED) Urine Methadone Screen (NONDETECTED) Ur Methadone Confirm Acetaminophen ug/mL Ur Barbiturates Screen (NONDETECTED) Ur Barbiturate Confirm Ur Phencyclidine Scrn (NONDETECTED) Urine PCP Confirm Ur Amphetamines Screen (NONDETECTED) U Amphetamines Confirm U Benzodiazepines Scrn (NONDETECTED) U Benzodiazepine Confm Urine Cocaine Screen (NONDETECTED) Urine Cocaine Confirm U Cannabinoids Confirm U Marijuana (THC) Screen (NONDETECTED) Ethyl Alcohol (<0.010) gm/dl 02/19/20 02/19/20 02/19/20 Range/Units 15:52 15:52 15:52 WBC (4.50-11.00) K/mcL RBC (3.59-5.38) M/mcL Hgb (11.2-15.7) g/dL Hct (34.1-44.9) % MCV (80.0-100.0) fL MCH (26.0-34.0) pg MCHC (31.0-36.0) g/dL RDW (11.5-14.5) % Plt Count (140-440) K/mcL MPV (7.4-10.4) fL Gran % (38.0-78.0) % Lymph % (Auto) (15.5-49.0) % [place] % (Auto) (1.0-12.0) % Eos % (Auto) (0.0-7.0) % Baso % (Auto) (0.0-2.0) % Gran # (1.80-8.00) K/mcL Lymph # (Auto) (1.50-4.80) K/mcL [place] # (Auto) (0.10-0.90) K/mcL Eos # (Auto) (0.00-0.70) K/mcL Baso # (Auto) (0.00-0.30) K/mcL Total Counted Seg Neutrophils % (38-78) % Band Neutrophils % (0-10) % Lymphocytes % (15-49) % Monocytes % (Manual) (1-12) % Eosinophils % (Manual) (0-7) % Reactive Lymphocytes (0-2) % Platelet Estimate (NORMAL) RBC Morphology (NORMAL) PT (11.9-14.5) sec INR (0.9-1.1) VBG Lactic Acid (0.5-2.0) mmol/L Sodium (133-145) mmol/L Potassium (3.3-5.1) mmol/L Chloride (96-108) mmol/L Carbon Dioxide (22-30) mmol/L Anion Gap (8-16) BUN (8-23) mg/dl Creatinine (0.6-1.1) mg/dl GFR Calculation Glucose (70-105) mg/dL Calcium (8.6-10.4) mg/dl Total Bilirubin (0.0-1.0) mg/dL GGT (5-36) U/L AST (0-37) U/l ALT (0-40) U/l Alkaline Phosphatase (39-117) U/L Ammonia (11-51) umol/L Total Protein (5.9-8.4) gm/dL Albumin (3.2-5.2) gm/dL Globulin (2.2-3.7) gm/dL Albumin/Globulin Ratio (1.0-2.3) Urine Color Urine Appearance Urine pH (5.0-9.0) Ur Specific [place] (1.000-1.035) Urine Protein (NEG) mg/dL Urine Glucose (UA) (NEG) mg/dL Urine Ketones (NEG) mg/dL Urine Occult Blood (<0.03) mg/dL Urine Nitrate (NEG) Urine Bilirubin (NEG) mg/dL Urine Urobilinogen (NEG) mg/dL Ur Leukocyte Esterase (NEG) /uL Urine RBC (0-1) /hpf Urine WBC (0-4) /hpf Ur Squamous Epith Cells (0-4) /hpf Urine Bacteria (0) /hpf Urine Mucus (0) /hpf Ur Culture Indicated? Salicylates < 0.3 mg/dL Urine Opiates Screen None detected (NONDETECTED) Ur Opiates Confirm Not Reportable Ur Oxycodone Screen None detected (NONDETECTED) Urine Methadone Screen None detected (NONDETECTED) Ur Methadone Confirm Not Reportable Acetaminophen < 5.0 ug/mL Ur Barbiturates Screen None detected (NONDETECTED) Ur Barbiturate Confirm Not Reportable Ur Phencyclidine Scrn None detected (NONDETECTED) Urine PCP Confirm Not Reportable Ur Amphetamines Screen None detected (NONDETECTED) U Amphetamines Confirm Not Reportable U Benzodiazepines Scrn None detected (NONDETECTED) U Benzodiazepine Confm Not Reportable Urine Cocaine Screen None detected (NONDETECTED) Urine Cocaine Confirm Not Reportable U Cannabinoids Confirm Not Reportable U Marijuana (THC) Screen None detected (NONDETECTED) Ethyl Alcohol (<0.010) gm/dl 02/19/20 02/19/20 02/19/20 Range/Units 15:52 15:52 15:52 WBC (4.50-11.00) K/mcL RBC (3.59-5.38) M/mcL Hgb (11.2-15.7) g/dL Hct (34.1-44.9) % MCV (80.0-100.0) fL MCH (26.0-34.0) pg MCHC (31.0-36.0) g/dL RDW (11.5-14.5) % Plt Count (140-440) K/mcL MPV (7.4-10.4) fL Gran % (38.0-78.0) % Lymph % (Auto) (15.5-49.0) % [place] % (Auto) (1.0-12.0) % Eos % (Auto) (0.0-7.0) % Baso % (Auto) (0.0-2.0) % Gran # (1.80-8.00) K/mcL Lymph # (Auto) (1.50-4.80) K/mcL [place] # (Auto) (0.10-0.90) K/mcL Eos # (Auto) (0.00-0.70) K/mcL Baso # (Auto) (0.00-0.30) K/mcL Total Counted 100 Seg Neutrophils % 76 (38-78) % Band Neutrophils % 12 H (0-10) % Lymphocytes % 4 L (15-49) % Monocytes % (Manual) 5 (1-12) % Eosinophils % (Manual) 2 (0-7) % Reactive Lymphocytes 1 (0-2) % Platelet Estimate Normal (NORMAL) RBC Morphology Normal (NORMAL) PT 14.5 (11.9-14.5) sec INR 1.1 (0.9-1.1) VBG Lactic Acid (0.5-2.0) mmol/L Sodium (133-145) mmol/L Potassium (3.3-5.1) mmol/L Chloride (96-108) mmol/L Carbon Dioxide (22-30) mmol/L Anion Gap (8-16) BUN (8-23) mg/dl Creatinine (0.6-1.1) mg/dl GFR Calculation Glucose (70-105) mg/dL Calcium (8.6-10.4) mg/dl Total Bilirubin (0.0-1.0) mg/dL GGT (5-36) U/L AST (0-37) U/l ALT (0-40) U/l Alkaline Phosphatase (39-117) U/L Ammonia (11-51) umol/L Total Protein (5.9-8.4) gm/dL Albumin (3.2-5.2) gm/dL Globulin (2.2-3.7) gm/dL Albumin/Globulin Ratio (1.0-2.3) Urine Color Urine Appearance Urine pH (5.0-9.0) Ur Specific [place] (1.000-1.035) Urine Protein (NEG) mg/dL Urine Glucose (UA) (NEG) mg/dL Urine Ketones (NEG) mg/dL Urine Occult Blood (<0.03) mg/dL Urine Nitrate (NEG) Urine Bilirubin (NEG) mg/dL Urine Urobilinogen (NEG) mg/dL Ur Leukocyte Esterase (NEG) /uL Urine RBC (0-1) /hpf Urine WBC (0-4) /hpf Ur Squamous Epith Cells (0-4) /hpf Urine Bacteria (0) /hpf Urine Mucus (0) /hpf Ur Culture Indicated? Salicylates mg/dL Urine Opiates Screen (NONDETECTED) Ur Opiates Confirm Ur Oxycodone Screen (NONDETECTED) Urine Methadone Screen (NONDETECTED) Ur Methadone Confirm Acetaminophen ug/mL Ur Barbiturates Screen (NONDETECTED) Ur Barbiturate Confirm Ur Phencyclidine Scrn (NONDETECTED) Urine PCP Confirm Ur Amphetamines Screen (NONDETECTED) U Amphetamines Confirm U Benzodiazepines Scrn (NONDETECTED) U Benzodiazepine Confm Urine Cocaine Screen (NONDETECTED) Urine Cocaine Confirm U Cannabinoids Confirm U Marijuana (THC) Screen (NONDETECTED) Ethyl Alcohol < 0.010 (<0.010) gm/dl 02/19/20 02/19/20 02/19/20 Range/Units 15:52 15:52 19:30 WBC (4.50-11.00) K/mcL RBC (3.59-5.38) M/mcL Hgb (11.2-15.7) g/dL Hct (34.1-44.9) % MCV (80.0-100.0) fL MCH (26.0-34.0) pg MCHC (31.0-36.0) g/dL RDW (11.5-14.5) % Plt Count (140-440) K/mcL MPV (7.4-10.4) fL Gran % (38.0-78.0) % Lymph % (Auto) (15.5-49.0) % [place] % (Auto) (1.0-12.0) % Eos % (Auto) (0.0-7.0) % Baso % (Auto) (0.0-2.0) % Gran # (1.80-8.00) K/mcL Lymph # (Auto) (1.50-4.80) K/mcL [place] # (Auto) (0.10-0.90) K/mcL Eos # (Auto) (0.00-0.70) K/mcL Baso # (Auto) (0.00-0.30) K/mcL Total Counted Seg Neutrophils % (38-78) % Band Neutrophils % (0-10) % Lymphocytes % (15-49) % Monocytes % (Manual) (1-12) % Eosinophils % (Manual) (0-7) % Reactive Lymphocytes (0-2) % Platelet Estimate (NORMAL) RBC Morphology (NORMAL) PT (11.9-14.5) sec INR (0.9-1.1) VBG Lactic Acid (0.5-2.0) mmol/L Sodium (133-145) mmol/L Potassium (3.3-5.1) mmol/L Chloride (96-108) mmol/L Carbon Dioxide (22-30) mmol/L Anion Gap (8-16) BUN (8-23) mg/dl Creatinine (0.6-1.1) mg/dl GFR Calculation Glucose (70-105) mg/dL Calcium (8.6-10.4) mg/dl Total Bilirubin (0.0-1.0) mg/dL GGT 463 H (5-36) U/L AST (0-37) U/l ALT (0-40) U/l Alkaline Phosphatase (39-117) U/L Ammonia 23 (11-51) umol/L Total Protein (5.9-8.4) gm/dL Albumin (3.2-5.2) gm/dL Globulin (2.2-3.7) gm/dL Albumin/Globulin Ratio (1.0-2.3) Urine Color Yellow Urine Appearance Clear Urine pH 7.0 (5.0-9.0) Ur Specific [place] 1.003 (1.000-1.035) Urine Protein Neg (NEG) mg/dL Urine Glucose (UA) Negative (NEG) mg/dL Urine Ketones Neg (NEG) mg/dL Urine Occult Blood Neg (<0.03) mg/dL Urine Nitrate Neg (NEG) Urine Bilirubin Neg (NEG) mg/dL Urine Urobilinogen Neg (NEG) mg/dL Ur Leukocyte Esterase Neg (NEG) /uL Urine RBC 0 (0-1) /hpf Urine WBC < 1 (0-4) /hpf Ur Squamous Epith Cells < 1 (0-4) /hpf Urine Bacteria 0 (0) /hpf Urine Mucus Few (0) /hpf Ur Culture Indicated? No Salicylates mg/dL Urine Opiates Screen (NONDETECTED) Ur Opiates Confirm Ur Oxycodone Screen (NONDETECTED) Urine Methadone Screen (NONDETECTED) Ur Methadone Confirm Acetaminophen ug/mL Ur Barbiturates Screen (NONDETECTED) Ur Barbiturate Confirm Ur Phencyclidine Scrn (NONDETECTED) Urine PCP Confirm Ur Amphetamines Screen (NONDETECTED) U Amphetamines Confirm U Benzodiazepines Scrn (NONDETECTED) U Benzodiazepine Confm Urine Cocaine Screen (NONDETECTED) Urine Cocaine Confirm U Cannabinoids Confirm U Marijuana (THC) Screen (NONDETECTED) Ethyl Alcohol (<0.010) gm/dl Disposition Pt seen by PROJECT SPECIALIST/PA only: No Clinical Impression: Hepatitis Altered mental status Qualifiers: Altered mental status type: unspecified Qualified Code(s): R41.82 - Altered mental status, unspecified Disposition: Xfer As Inpt ([facility]) Condition: Serious
[2020-02-20 06:38] LABS: INR 1.2 (0.9-1.1); Prothrombin Time 15.6 sec (11.9-14.5)
--- NOTE | 2020-02-20 06:51 | Internal Med History&Physical ---
Medical - H&P: HPI Patient information: Note initiated : 02/20/20 at 6:50 am Service Date, if different from initiated Date: [] Patient: Cynthia Kirby a 69 y/o F admitted on 02/20/20 for Decreased loc. Chief Complaint: [] History of present illness: Ms. Kirby is a 69 year old F Presents the ED for decreased level of consciousness. She was seen the previous day in the ED for a fall and found to have a UTI and started on Macrobid. She returned today due to her son being concerned with her decreased level of consciousness. In the ED she would answer some questions properly however she was quite leth argic and was speaking initially and slow garbled speech. In the ED she had a mild leukocytosis and a mild fever 100.7. She had a drug screen including salicylate and Tylenol which was unremarkable. Lactate was unremarkable. However her hepatic panels significantly abnormal with an AST of 992 ALT of 1123 bilirubin of 2.6 and ALP 298 INR is 1.1. ABG with a pH of 7.[address] of the abdomen pelvis did not report any acute disease or any liver issues or biliary duct abnormalities. CT brain showed some atrophy with chronic ischemic changes and remote lacunar infarct right medial occipital lobe. There is a question of hypoxia on initial vital signs (reported at 82%) and he was put on oxygen up to 3-4 L; however has been since taken off and is on room air 97%. CXR with atelectasis. Case discussed with assistant corporation counsel regarding transaminitis. Patient is a poor historian and difficult to gather any history from her. She seems to be focused on getting a Pepsi and where is my cane. She states she did not take any of the antibiotic yet Review of Systems: Pertinent positives as above. Denies headache/fever/chills/nausea/vomiting/chest or abdominal pain/cough/dyspnea/carmen rrhea. Remaining 10 point review of system reviewed negative. Medical - H&P: H Medical history: Medical History (Last Updated 01/03/20 @ 15:08 by Uzma Alvarado) Nausea & vomiting (Chronic) Polydipsia (Chronic) Peptic ulcer disease (Chronic) Hypokalemia (Chronic) Hyponatremia (Chronic) Anxiety (Chronic) Acute anxiety (Chronic) Panic disorder (Chronic) Altered mental status (Chronic) Psychogenic polydipsia (Chronic) Hyponatremia (Chronic) Hypochloremia (Chronic) Elevated lactic acid level (Chronic) Hyponatremia with excess extracellular fluid volume (Chronic) Encephalopathy acute (Chronic) UTI (urinary tract infection) (Chronic) Cigarette smoker (Chronic) Diabetes mellitus type 2, controlled (Chronic) Alzheimer's disease (Chronic) Bipolar disorder (Chronic) Elevated serum GGT level (Chronic) Hypertension, essential (Chronic) Hyperlipidemia (Chronic) Hypothyroidism (acquired) (Chronic) Obesity (Chronic) Constipation (Chronic) Vitamin D deficiency (Chronic) Osteoporosis (Chronic) Osteopenia (Chronic) Constipation (Chronic) Anxiety about health (Chronic) Cognitive dysfunction (Chronic) Cough (Chronic) Abdominal pain (Chronic) Schwannoma (Chronic 02/06/12) Depression (Chronic) Seborrhea (Chronic) Acute anxiety (Resolved) Acute cystitis with hematuria (Resolved) Ankle fracture (Resolved) Anxiety (Resolved) Bimalleolar fracture of right ankle (Resolved) Flea bite (Resolved) Foot pain, right (Resolved) Hypokalemia (Resolved) Rectal pain (Resolved) Sepsis (Resolved) Urinary tract infection (Resolved) Yeast infection (Resolved) Encounter for medication refill (Inactive) Past Surgical History (Last Updated 01/03/20 @ 15:11 by Uzma Alvarado) History of appendectomy (Chronic ~10/11/98) S/P ORIF (open reduction internal fixation) fracture (Chronic) S/P LIZETH-BSO (Chronic ~10/11/98) H/O colonoscopy (Inactive 12/15/17) Family History Mother- Arthritis, Essential hypertension Father- Myocardial Infarction, Chronic obstructive pulmonary disease Social History (Last Updated 12/25/18 @ 14:30 by Katelyn Valdes PA-C) 3 cig/day Denies alcohol ambulates with a cane Lives with son Medical - H&P: Meds Home Medications Medication Instructions Recorded Confirmed Type Liothyronine Sodium 12.5 mcg PO HS 09/06/15 02/20/20 History LORazepam [Ativan] 1 mg PO BID@1200,1800 06/09/18 02/20/20 History lamoTRIgine [Lamictal] 200 mg PO DAILY 06/09/18 02/20/20 History QUEtiapine [Seroquel] 400 mg PO HS 06/10/18 02/20/20 History Gabapentin [Neurontin] 200 mg PO BID 05/06/19 02/20/20 History Levothyroxine [Synthroid] 50 mcg PO QAMAC 05/06/19 02/20/20 History Linaclotide [Linzess] 290 mcg PO DAILY 05/06/19 02/20/20 History QUEtiapine [Seroquel] 50 mg PO DAILY 05/06/19 02/20/20 History traZODone HCL [Trazodone HCl] 50 mg PO HS 05/06/19 02/20/20 History Levothyroxine Sodium [Synthroid] 112 mcg PO QAMAC 05/25/19 02/20/20 History amLODIPine [Norvasc] 10 mg PO DAILY 05/25/19 02/20/20 History metFORMIN HCL [Metformin ER 1,000 mg PO QPMCC 05/25/19 02/20/20 History Osmotic] Omeprazole [Prilosec] 20 mg PO ACB 06/20/19 02/20/20 History Losartan [Cozaar] 100 mg PO DAILY #30 tab 06/22/19 02/20/20 Rx Nitrofurantoin Sr [Macrobid] 100 mg PO BID #10 cap 02/18/20 02/20/20 Rx Allergies Allergy/AdvReac Type Severity Reaction Status Date / Time Penicillins Allergy Severe Swelling Verified 02/19/20 15:07 of Throat Medical - H&P: Exam - Constitutional Vitals: Temp Pulse Resp BP Pulse Ox 98.7 F 89 20 121/61 93 02/20/20 06:30 02/20/20 04:15 02/20/20 06:30 02/20/20 06:30 02/20/20 06:30 Exam: General: awake, No acute Distress, obese Eyes/N/T: EOMI, PERRL, dry MM Head/Neck: neck supple, normocephalic atraumatic CV: RRR, No murmurs, normal s1/s2 Pulm: Clear b/l, no wheezing/rhonchi/rales Abd: soft, nontender, +BS x4 Ext: no clubbing/cyanosis/edema Neuro: awake, answers questions appropriately but is fixated on where her cane is and her medications and wanting a Pepsi, moves all extremities, follows commands, symmetrical strength b/l upper/lower, sensations intact b/l upper/lower Skin: warm/dry Medical - H&P: Reslt - Labs CBC & Chem 7: 02/19/20 15:52 02/19/20 15:52 Labs: Short CBC 02/19/20 Range/Units 15:52 WBC 12.5 H (4.50-11.00) K/mcL Hgb 11.8 (11.2-15.7) g/dL Hct 38.7 (34.1-44.9) % Plt Count 247 (140-440) K/mcL BMP 02/19/20 15:52 Sodium 138 Potassium 4.2 Chloride 100 Carbon Dioxide 25 BUN 12 Creatinine 1.1 Glucose 87 Calcium 9.2 Liver Function 02/19/20 02/19/20 Range/Units 15:52 15:52 Total Bilirubin 2.6 H (0.0-1.0) mg/dL GGT 463 H (5-36) U/L AST 992 H (0-37) U/l ALT 1123 H (0-40) U/l Alkaline Phosphatase 298 H (39-117) U/L Albumin 4.0 (3.2-5.2) gm/dL Urine 02/19/20 Range/Units 15:52 Urine Color Yellow Urine Appearance Clear Urine pH 7.0 (5.0-9.0) Ur Specific [place] 1.003 (1.000-1.035) Urine Protein Neg (NEG) mg/dL Urine Glucose (UA) Negative (NEG) mg/dL Medical - H&P: A/P - Narrative A/P Narrative: A: *Encephalopathy (lethargy): metabolic/sepsis vs meds vs -CT brain no acute (old lacunar infarct), abg ok, ammonia ok -UDS neg *Acute Hepatitis (Hepatocellular) w/elevated Bilirubin/ALP: ?etiology viral vs sepsis vs ?ischemic/hypoxic (possibly had a period of airway obstruction given her initial obtunded state pt has appearance of someone with KYM) -INR ok at 1.1, does not meet criteria for Liver Failure at this point. Ammonia ok -CT a/p no acute live pathology or ductal dilatation *UTI (klebsiella): recently diagnosed outpt and started on macrobid. Of note past UC showed intermediate resistance to macrobid *Sepsis: 2/2 UTI vs Other -febrile @100.7 *Atelectasis: *DM: *Depression/anxiety/bipolar: *HTN: *Hypothyroidism: *GERD: *Tobacco abuse: *Obesity P: -IVFs -monitor hepatic panel and INR -hepatitis panel pending -consider Doppler u/s to evaluate for any vascular occlusion -consider Autoimmune (DAVON,ASMA) -case discussed with GI who -IV abx, pending BC and final UC sensitivities - -cont home bp meds and psych meds -IS -SSI -pt/ot -Smoking cessation counseling -ppx: lovenox/home ppi DNR Medical - H&P: Qual - VTE Deep Vein Thrombosis/Pulmonary Embolism Present on Admission: No
[2020-02-20 07:06] LABS: AST/SGOT 426 U/l (0-37); Albumin 3.6 gm/dL (3.2-5.2); Albumin/Globulin Ratio 1.1 (1.0-2.3); Alkaline Phosphatase 264 U/L (39-117); Bilirubin,Total 2.5 mg/dL (0.0-1.0); Blood Urea Nitrogen 11 mg/dl (8-23); Calcium 9.1 mg/dl (8.6-10.4); Carbon Dioxide 23 mmol/L (22-30); Chloride 101 mmol/L (96-108); Globulin 3.3 gm/dL (2.2-3.7); Glomerular Filtration Rate 57; Glucose 98 mg/dL (70-105); Lactate Dehydrogenase 285 U/L (94-250); Triglycerides 85 mg/dl (<150); Uric Acid 3.5 mg/dL (2.5-8.0)
[2020-02-20 07:10] LABS: Phosphorous 1.8 mg/dL (2.7-4.5)
[2020-02-20 07:24] LABS: ALT/SGPT 751 U/l (0-40)
[2020-02-20] MEDS ORDERED: DEXTROSE 31 GM ORAL.SUSP PO PRN (07:29)
[2020-02-20] MEDS ORDERED: ONDANSETRON 4 MG/2 ML VIAL IV PRN (07:29)
[2020-02-20] MEDS ORDERED: DEXTROSE 50% 50 ML VIAL IV PRN (07:29)
[2020-02-20] MEDS ORDERED: POTASSIUM CHLORIDE 40 MEQ in DEXTROSE 5% IN WATER 500 ML IV PRN (07:29)
[2020-02-20] MEDS ORDERED: IPRATROPIUM/ALBUTEROL 3 ML AMPUL.NEB NEB PRN (07:29)
[2020-02-20] MEDS ORDERED: POLYETHYLENE GLYCOL 3350 17 GM PACKET PO PRN (07:29)
[2020-02-20] MEDS ORDERED: POTASSIUM CHLORIDE 20 MEQ TABLET PO PRN ×2 (07:29)
[2020-02-20] MEDS ORDERED: SENNOSIDES 1 TABLET PO PRN (07:29)
[2020-02-20] MEDS ORDERED: MAGNESIUM SULFATE 2 GM/50 ML BAG IV PRN (07:29)
[2020-02-20] MEDS ORDERED: LACTULOSE 20 GM/30 ML ORAL.SOL PO PRN (07:29)
--- NOTE | 2020-02-20 07:56 | Ultrasound Report ---
CLINICAL INFORMATION: 69 y/o F. altered mental status. Elevated LFTs COMPARISON: None. FINDINGS: The exam was limited due to patient intolerance. Liver is normal in size and echotexture without focal lesion. The gallbladder was incompletely evaluated showed no gross abnormality. Common bile duct normal at 5 mm. Pancreas not visualized IMPRESSION: Negative limited exam Interpreted and Authenticated by: Paul Harper 02/20/20
[2020-02-20] MEDS: PHOSPHORUS 250 MG TABLET PO SCH ×2 (08:27→20:38)
[2020-02-20] MEDS: INSULIN LISPRO 1 UNIT/0.01 ML UNIT SQ SCH ×4 (08:27→20:37)
[2020-02-20] MEDS: traMADol 50 MG TABLET PO PRN ×2 (08:28→20:37)
--- NOTE | 2020-02-20 08:32 | Ultrasound Report ---
CLINICAL INFORMATION: Bilateral leg pain COMPARISON: None. FINDINGS: The entire deep venous system, of both lower extremities, including the common femoral, superficial femoral, popliteal and paired trifurcation calf veins are easily compressible and show normal venous blood flow on color and spectral Doppler. No evidence of thrombus IMPRESSION: Negative exam - no evidence of deep vein thrombosis in either lower extremity. 1.4 cm complex cyst in the right popliteal fossa most compatible with a Mane's cyst Interpreted and Authenticated by: Paul Harper 02/20/20
[2020-02-20] MEDS ORDERED: SODIUM PHOSPHATE 15 MMOL in DEXTROSE 5% IN WATER 250 ML IV ONE (09:00)
[2020-02-20 09:12] LABS: Hematocrit 35.1 % (34.1-44.9); Hemoglobin 11.1 g/dL (11.2-15.7); Mean Cell Volume 89.8 fL (80.0-100.0); Mean Corpuscular HGB Conc 31.6 g/dL (31.0-36.0); Mean Platelet Volume 9.6 fL (7.4-10.4); Platelet Count 257 K/mcL (140-440); RBC 3.91 M/mcL (3.59-5.38)
[2020-02-20 09:41] LABS: Eosinophils % (Manual) 7 % (0-7); Lymphocytes % 10 % (15-49); Monocytes % (Manual) 4 % (1-12); Platelet Estimate NORMAL (NORMAL); RBC Morphology NORMAL (NORMAL); Segmented Neutrophils % 79 % (38-78)
[2020-02-20 09:52] LABS: Hepatitis B Surface Antigen NEGATIVE (NEGATIVE); Hepatitis C Virus Antibody NON REACTIVE (NEGATIVE)
[2020-02-20] MEDS: GABAPENTIN 100 MG CAPSULE PO SCH ×2 (09:53→20:36)
[2020-02-20] MEDS: QUEtiapine 25 MG TABLET PO SCH (09:53)
[2020-02-20] MEDS: FAMOTIDINE 20 MG TABLET PO SCH ×2 (09:54→20:37)
[2020-02-20] MEDS: lamoTRIgine 100 MG TABLET PO SCH (09:54)
[2020-02-20] MEDS: LOSARTAN 50 MG TABLET PO SCH (09:54)
[2020-02-20] MEDS: amLODIPine 10 MG TABLET PO SCH (09:55)
[2020-02-20] MEDS: ENOXAPARIN 40 MG/0.4 ML SYRINGE SQ SCH (09:55)
[2020-02-20] MEDS: DOCUSATE SODIUM 100 MG CAPSULE PO SCH ×2 (09:55→20:38)
[2020-02-20] MEDS: LORazepam 1 MG TABLET PO SCH ×2 (12:05→18:06)
[2020-02-20] MEDS: 0.9 % SODIUM CHLORIDE 10 ML SYRINGE IV SCH ×2 (14:56→20:38)
[2020-02-20] MEDS: QUEtiapine 100 MG TABLET PO SCH (20:36)
[2020-02-20] MEDS: MELATONIN 3 MG TABLET PO SCH (20:38)
[2020-02-20] MEDS: traZODone HCL 50 MG TABLET PO SCH (20:38)
[2020-02-20] MEDS: LIOTHYRONINE 5 MCG TABLET PO SCH (20:41)
[2020-02-21 06:29] LABS: ALT/SGPT 472 U/l (0-40); AST/SGOT 126 U/l (0-37); Albumin 3.3 gm/dL (3.2-5.2); Alkaline Phosphatase 248 U/L (39-117); Bilirubin,Total 0.9 mg/dL (0.0-1.0); Blood Urea Nitrogen 9 mg/dl (8-23); Calcium 9.4 mg/dl (8.6-10.4); Carbon Dioxide 25 mmol/L (22-30); Chloride 106 mmol/L (96-108); Globulin 3.4 gm/dL (2.2-3.7); Glomerular Filtration Rate 65; Glucose 91 mg/dL (70-105); Lactate Dehydrogenase 179 U/L (94-250); Triglycerides 88 mg/dl (<150); Uric Acid 2.9 mg/dL (2.5-8.0)
[2020-02-21 06:30] LABS: Bilirubin,Direct 0.5 mg/dL (0.0-0.3); Phosphorous 2.7 mg/dL (2.7-4.5)
--- NOTE | 2020-02-21 07:48 | Internal Med Progress Note ---
Medical - PN: Subj Patient information: Note initiated : 02/21/20 at 7:43 am Service Date, if different from initiated Date: [] Patient: Cynthia Kirby 69 y/o F admitted on 02/20/20 for Decreased loc. Chief Complaint: [] Interval history: Ms. Kirby is a 69 year old F Presents the ED for decreased level of consciousness. She was seen the previous day in the ED for a fall and found to have a UTI and started on Macrobid. She returned today due to her son being concerned with her decreased level of c onsciousness. In the ED she would answer some questions properly however she was quite lethargic and was speaking initially and slow garbled speech. In the ED she had a mild leukocytosis and a mild fever 100.7. She had a drug screen including salicylate and Tylenol which was unremarkable. Lactate was unremarkable. However her hepatic panels significantly abnormal with an AST of 992 ALT of 1123 bilirubin of 2.6 and ALP 298 INR is 1.1. ABG with a pH of 7.[address] of the abdomen pelvis did not report any acute disease or any liver issues or biliary duct abnormalities. CT brain showed some atrophy with chronic ischemic changes and remote lacunar infarct right medial occipital lobe. There is a question of hypoxia on initial vital signs (reported at 82%) and he was put on oxygen up to 3-4 L; however has been since taken off and is on room air 97%. CXR with atelectasis. Case discussed with carpenter regarding transaminitis. Patient is a poor historian and difficult to gather any history from her. She seems to be focused on getting a Pepsi and where is my cane. She states she did not take any of the antibiotic yet 5/4 Doing better. Slept well. No new complaints. Review of Systems: denies headache/fever/chills/nausea/vomiting/chest or abdominal pain/cough/dyspnea/diarrhea. Otherwise see above. - Constitutional Vitals: Vital Signs Temp Pulse Resp BP Pulse Ox 97.8 F 77 20 123/66 98 02/21/20 04:00 02/21/20 05:20 02/21/20 04:00 02/21/20 04:00 02/21/20 04:00 Period Temp Pulse Resp BP Sys/Norris Pulse Ox Last 24 Hr 97.8 F-99.5 F 66-85 16-20 115-138/63-71 93-98 Intake and Output 02/20/20 02/21/20 02/21/20 21:59 05:59 13:59 Intake Total 735 200 Output Total 1625 250 476 Balance -890 -50 -476 Weight 87.317 kg Intake & Output: Intake & Output 02/20/20 02/21/20 02/21/20 21:59 05:59 13:59 Intake Total 735 200 Output Total 1625 250 476 Balance -890 -50 -476 Weight 87.317 kg Intake: Oral 735 200 Output: Void Amount 1625 250 475 # of times incontinent of urine 1 Other: Urine Appearance Clear Clear Clear Urine Color Dark Yellow Dark Yellow Dark Yellow Urine Odor Normal Exam: General: awake, No acute Distress, obese Eyes/N/T: EOMI, Head/Neck: neck supple, CV: RRR, No murmurs, Pulm: Clear b/l, no wheezing/rhonchi/rales Abd: soft, nontender, +BS x4 Ext: no clubbing/cyanosis/edema Neuro: awake, no focal deficits, moves all extremities, follows commands, Skin: warm/dry Medical - PN: Obj Da - Labs CBC & Chem 7: 02/20/20 08:18 02/21/20 05:10 Labs: Abnormal Lab Results 02/21/20 02/20/20 02/20/20 05:10 19:30 08:18 WBC Hgb 11.1 L MCHC RDW 15.0 H Gran % Lymph % (Auto) Gran # Lymph # (Auto) Seg Neutrophils % 79 H Band Neutrophils % Lymphocytes % 10 L PT INR APTT D-Dimer 8.82 H Phosphorus Total Bilirubin Direct Bilirubin 0.5 H GGT 323 H AST 126 H ALT 472 H Alkaline Phosphatase 248 H Lactate Dehydrogenase 02/20/20 02/20/20 02/20/20 08:18 08:18 05:05 WBC Hgb MCHC RDW Gran % Lymph % (Auto) Gran # Lymph # (Auto) Seg Neutrophils % Band Neutrophils % Lymphocytes % PT INR APTT 41 H D-Dimer 3.60 H Phosphorus 1.8 L Total Bilirubin 2.5 H Direct Bilirubin 2.0 H GGT 371 H AST 426 H ALT 751 H Alkaline Phosphatase 264 H Lactate Dehydrogenase 285 H 05/03/20 05/02/20 05/02/20 05:05 15:52 15:52 WBC Hgb MCHC RDW Gran % Lymph % (Auto) Gran # Lymph # (Auto) Seg Neutrophils % Band Neutrophils % 12 H Lymphocytes % 4 L PT 15.6 H INR 1.2 H APTT D-Dimer Phosphorus Total Bilirubin Direct Bilirubin GGT 463 H AST ALT Alkaline Phosphatase Lactate Dehydrogenase 02/19/20 02/19/20 15:52 15:52 WBC 12.5 H Hgb MCHC 30.5 L RDW 14.9 H Gran % 89.7 H Lymph % (Auto) 4.2 L Gran # 11.19 H Lymph # (Auto) 0.53 L Seg Neutrophils % Band Neutrophils % Lymphocytes % PT INR APTT D-Dimer Phosphorus Total Bilirubin 2.6 H Direct Bilirubin GGT AST 992 H ALT 1123 H Alkaline Phosphatase 298 H Lactate Dehydrogenase Meds: Medications Albuterol/Ipratropium (Duoneb) 3 ml NEB Q4HP PRN PRN Reason: Shortness Of Breath Amlodipine Besylate (Norvasc) 10 mg PO DAILY [facility] Last Admin: 02/20/20 09:55 Dose: 10 mg Documented by: Dextrose (Dextrose 50%) 0 ml IV UD PRN PRN Reason: Hypoglycemia Diagnostic Test (Pha) (Accu-Chek) 1 each FS ACHS [facility] Last Admin: 02/20/20 20:36 Dose: 1 each Documented by: Docusate Sodium (Colace) 100 mg PO BID [facility] Last Admin: 02/20/20 20:38 Dose: 100 mg Documented by: Enoxaparin Sodium (Lovenox) 40 mg SQ DAILY [facility] Last Admin: 02/20/20 09:55 Dose: 40 mg Documented by: Famotidine (Pepcid) 20 mg PO BID [facility] Last Admin: 02/20/20 20:37 Dose: 20 mg Documented by: Gabapentin (Neurontin) 200 mg PO BID [facility] Last Admin: 02/20/20 20:36 Dose: 200 mg Documented by: Glucose (Insta-Glucose) 15 gm PO PRN PRN PRN Reason: Hypoglycemia Potassium Chloride 40 meq/ (Dextrose) 520 mls @ 130 mls/hr IV UD PRN PRN Reason: Potassium < 3 Magnesium Sulfate (Magnesium Sulfate) 2 gm in 50 mls @ 50 mls/hr IV UD PRN PRN Reason: Magnesium </= 1.6 Insulin Human Lispro (Humalog) 0 unit SQ ACHS [facility]; Protocol Last Admin: 02/20/20 20:37 Dose: Not Given Documented by: Lactulose (Cephulac) 20 gm PO DAILYP PRN PRN Reason: Constipation Lamotrigine (Lamictal) 200 mg PO DAILY [facility] Last Admin: 02/20/20 09:54 Dose: 200 mg Documented by: Levothyroxine Sodium (Synthroid) 50 mcg PO QAMAC [facility] Levothyroxine Sodium (Synthroid) 112 mcg PO QAMAC [facility] Liothyronine Sodium (Cytomel) 12.5 mcg PO [facility] Last Admin: 02/20/20 20:41 Dose: 12.5 mcg Documented by: Lorazepam (Ativan) 1 mg PO BID@1200,1800 [facility] Last Admin: 02/20/20 18:06 Dose: 1 mg Documented by: Losartan Potassium (Cozaar) 100 mg PO DAILY [facility] Last Admin: 02/20/20 09:54 Dose: 100 mg Documented by: Melatonin (Melatonin 3mg Tablet) 3 mg PO QHS [facility] Last Admin: 02/20/20 20:38 Dose: 3 mg Documented by: Ondansetron HCl (Zofran) 4 mg IV Q4HP PRN PRN Reason: Nausea And Vomiting Polyethylene Glycol (Miralax) 17 gm PO DAILYP PRN PRN Reason: Constipation Potassium Chloride (Kdur) 40 meq PO UD PRN PRN Reason: Potssium is 3-3.5 Potassium Chloride (Kdur) 40 meq PO UD PRN PRN Reason: Potassium < 3 Quetiapine Fumarate (Seroquel) 50 mg PO DAILY [facility] Last Admin: 02/20/20 09:53 Dose: 50 mg Documented by: Quetiapine Fumarate (Seroquel) 400 mg PO [facility] Last Admin: 02/20/20 20:36 Dose: 400 mg Documented by: Senna (Senokot) 2 tab PO DAILYP PRN PRN Reason: Constipation Sodium Chloride (Saline Flush) 10 ml IV Q8 [facility] Last Admin: 02/20/20 20:38 Dose: 10 ml Documented by: Tramadol HCl (Ultram) 50 mg PO Q12HP PRN PRN Reason: Pain Last Admin: 02/20/20 20:37 Dose: 50 mg Documented by: Trazodone HCl (Desyrel) 50 mg PO HS [facility] Last Admin: 02/20/20 20:38 Dose: 50 mg Documented by: Medical - PN: A/P - Time Spent With Patient Total time spent is greater than 50% in coordination of care (as documented) at patient's floor/unit and/or counseling patient: - Narrative A/P Narrative: A: *Encephalopathy (lethargy): metabolic/sepsis vs meds vs -CT brain no acute (old lacunar infarct), abg ok, ammonia ok -UDS neg -IMproved *Acute Hepatitis (Hepatocellular) w/elevated Bilirubin/ALP: ?etiology viral vs sepsis vs ?ischemic/hypoxic (possibly had a period of airway obstruction given her initial obtunded state -pt has appearance of someone with KYM) -INR ok at 1.1, does not meet criteria for Liver Failure at this point. Ammonia ok, hepatitis neg -CT a/p no acute live pathology or ductal dilatation; US w/doppler of liver no thrombosis -IMproving *UTI (klebsiella): recently diagnosed outpt and started on macrobid. Of note past UC showed intermediate resistance to macrobid *Sepsis: 2/2 UTI vs Other -febrile @100.7 on admit with mild leukocytosis/bandemia - resolved *Atelectasis: on room air *DM: *Depression/anxiety/Bipolar: *HTN: *Hypothyroidism: *GERD: *Tobacco abuse: *Obesity: *Generalized weakness/deconditioning: Several falls recently -no fractures on imaging P: -monitor hepatic panel and INR -case discussed with GI in ED -IV abx, pending BC and final UC sensitivities - -cont home bp meds and psych meds -IS -SSI -pt/ot -Smoking cessation counseling -ppx: lovenox/home ppi Medical - PN: Qual - VTE Deep Vein Thrombosis/Pulmonary Embolism Present on Admission: No
[2020-02-21 07:58] LABS: Prothrombin Time 13.6 sec (11.9-14.5)
[2020-02-21] MEDS: traMADol 50 MG TABLET PO PRN ×2 (08:14→21:19)
[2020-02-21] MEDS ORDERED: 0.9 % SODIUM CHLORIDE 250 ML IV ONE (08:21)
--- NOTE | 2020-02-21 09:28 | Discharge Summary ---
Medical - DS: Prov Patient information: Note initiated : 02/21/20 at 9:26 am Service Date, if different from initiated Date: [] Patient: Cynthia Kirby 69 y/o F admitted on 02/20/20 for Decreased loc. Chief Complaint: [] Date of admission: 02/20/20 02:22 Discharge date: 02/22/20 Primary care physician: Hailey Denis Consults: 02/19/20 Consult to Physician [CONS] Stat Comment: Consulting Provider: Melquiades Post Reason For Exam: Physician to Consult Medical - DS: Meds - Discharge Medications Prescriptions: Cephalexin [Keflex] 250 mg PO QID #8 cap Active and Home Medications: Home Medications Liothyronine Sodium 12.5 mcg PO HS 09/06/15 [History Confirmed 02/20/20 Last Taken 02/18/20 21:00] LORazepam [Ativan] 1 mg PO BID@1200,1800 06/09/18 [History Confirmed 02/20/20 Last Taken 02/19/20 12:00] lamoTRIgine [Lamictal] 200 mg PO DAILY 06/09/18 [History Confirmed 02/20/20 Last Taken 02/19/20 09:00] QUEtiapine [Seroquel] 400 mg PO HS 06/10/18 [History Confirmed 02/20/20 Last Taken 02/18/20 21:00] Gabapentin [Neurontin] 200 mg PO BID 05/06/19 [History Confirmed 02/20/20 Last Taken 02/19/20 09:00] Levothyroxine [Synthroid] 50 mcg PO QAMAC 05/06/19 [History Confirmed 02/20/20 Last Taken 02/19/20 08:00] Linaclotide [Linzess] 290 mcg PO DAILY 05/06/19 [History Confirmed 02/20/20 Last Taken 02/19/20 09:00] QUEtiapine [Seroquel] 50 mg PO DAILY 05/06/19 [History Confirmed 02/20/20 Last Taken 02/19/20 09:00] traZODone HCL [Trazodone HCl] 50 mg PO HS 05/06/19 [History Confirmed 02/20/20 Last Taken 02/18/20 21:00] Levothyroxine Sodium [Synthroid] 112 mcg PO QAMAC 05/25/19 [History Confirmed 02/20/20 Last Taken 02/19/20 08:00] amLODIPine [Norvasc] 10 mg PO DAILY 05/25/19 [History Confirmed 02/20/20 Last Taken 02/19/20 09:00] metFORMIN HCL [Metformin ER Osmotic] 1,000 mg PO QPMCC 05/25/19 [History Confirmed 02/20/20 Last Taken 02/19/20 09:00] Omeprazole [Prilosec] 20 mg PO ACB 06/20/19 [History Confirmed 02/20/20 Last Taken 02/19/20 08:00] Losartan [Cozaar] 100 mg PO DAILY #30 tab 06/22/19 [Rx Confirmed 02/20/20 Last Taken 02/19/20 09:00] Nitrofurantoin Sr [Macrobid] 100 mg PO BID #10 cap 02/18/20 [Rx Confirmed Last Taken 02/19/20 09:00] Home Medications Liothyronine Sodium 12.5 mcg PO HS 09/06/15 [History Confirmed 02/20/20 Last Taken 02/18/20 21:00] LORazepam [Ativan] 1 mg PO BID@1200,1800 06/09/18 [History Confirmed 02/20/20 Last Taken 02/19/20 12:00] lamoTRIgine [Lamictal] 200 mg PO DAILY 06/09/18 [History Confirmed 02/20/20 Last Taken 02/19/20 09:00] QUEtiapine [Seroquel] 400 mg PO HS 06/10/18 [History Confirmed 02/20/20 Last Taken 02/18/20 21:00] Gabapentin [Neurontin] 200 mg PO BID 05/06/19 [History Confirmed 02/20/20 Last Taken 02/19/20 09:00] Levothyroxine [Synthroid] 50 mcg PO QAMAC 05/06/19 [History Confirmed 02/20/20 Last Taken 02/19/20 08:00] Linaclotide [Linzess] 290 mcg PO DAILY 05/06/19 [History Confirmed 02/20/20 Last Taken 02/19/20 09:00] QUEtiapine [Seroquel] 50 mg PO DAILY 05/06/19 [History Confirmed 02/20/20 Last Taken 02/19/20 09:00] traZODone HCL [Trazodone HCl] 50 mg PO HS 05/06/19 [History Confirmed 02/20/20 Last Taken 02/18/20 21:00] Levothyroxine Sodium [Synthroid] 112 mcg PO QAMAC 05/25/19 [History Confirmed 02/20/20 Last Taken 02/19/20 08:00] amLODIPine [Norvasc] 10 mg PO DAILY 05/25/19 [History Confirmed 02/20/20 Last Taken 02/19/20 09:00] metFORMIN HCL [Metformin ER Osmotic] 1,000 mg PO QPMCC 05/25/19 [History Confirmed 02/20/20 Last Taken 02/19/20 09:00] Omeprazole [Prilosec] 20 mg PO ACB 06/20/19 [History Confirmed 02/20/20 Last Taken 02/19/20 08:00] Losartan [Cozaar] 100 mg PO DAILY #30 tab 06/22/19 [Rx Confirmed 02/20/20 Last Taken 02/19/20 09:00] Cephalexin [Keflex] 250 mg PO QID #8 capsule 02/21/20 [Rx Last Taken Unknown] Medical - DS: Hosp Hospital Course: Ms. Kirby is a 69 year old F Presents the ED for decreased level of consciousness. She was seen the previous day in the ED for a fall and found to have a UTI and started on Macrobid. She returned today due to her son being concerned with her decreased level of consciousness. In the ED she would answer some questions properly however she was quite lethargic and was speaking initially and slow garbled speech. In the ED she had a mild leukocytosis and a mild fever 100.7. She had a drug s creen including salicylate and Tylenol which was unremarkable. Lactate was unremarkable. However her hepatic panels significantly abnormal with an AST of 992 ALT of 1123 bilirubin of 2.6 and ALP 298 INR is 1.1. ABG with a pH of 7.[address] of the abdomen pelvis did not report any acute disease or any liver issues or biliary duct abnormalities. CT brain showed some atrophy with chronic ischemic changes and remote lacunar infarct right medial occipital lobe. There is a question of hypoxia on initial vital signs (reported at 82%) and he was put on oxygen up to 3-4 L; however has been since taken off and is on room air 97%. CXR with atelectasis. Case discussed with productivity engineer regarding transaminitis. Patient is a poor historian and difficult to gather any history from her. She seems to be focused on getting a Pepsi and where is my cane. She states she did not take any of the antibiotic yet 5/ Doing better. Slept well. No new complaints. 02/21 No overnight events or new complaints patient doing well. Stable for discharge. A: *Encephalopathy (lethargy): metabolic/sepsis vs meds vs . REsolved -CT brain no acute (old lacunar infarct), abg ok, ammonia ok -UDS neg *Acute Hepatitis (Hepatocellular) w/elevated Bilirubin/ALP: ?etiology viral vs sepsis vs ?ischemic/hypoxic (possibly had a period of airway obstruction given her initial obtunded state -pt has appearance of someone with KYM) -INR ok at 1.1, does not meet criteria for Liver Failure at this point. Ammonia ok, hepatitis neg -CT a/p no acute live pathology or ductal dilatation; US w/doppler of liver no thrombosis -Resolving *UTI (klebsiella): recently diagnosed outpt and started on macrobid. Of note past UC showed intermediate resistance to macrobid *Sepsis: 2/2 UTI vs Other -resolved *Atelectasis: on room air *DM: *Depression/anxiety/Bipolar: *HTN: *Hypothyroidism: *GERD: *Tobacco abuse: *Obesity: *Generalized weakness/deconditioning: Several falls recently -no fractures on imaging Discharge diagnosis: encephalopathy acute hepatitis Klebsiella UTI atelectasis Secondary discharge diagnosis: Diabetes depression anxiety bipolar hypertension hypothyroidism GERD tobacco abuse obesity generalized weakness/deconditioning - Time Spent with Patient Total time spent providing and/or coordinating discharge services: Greater than 30 minutes Medical - DS: Exam - Constitutional Vitals: Vital Signs Temp Pulse Pulse Resp BP Pulse Ox 02/21/20 08:00 98.6 F 80 18 151/70 96 02/21/20 05:20 77 02/21/20 04:00 97.8 F 85 20 123/66 98 02/21/20 01:39 70 20 02/21/20 00:47 74 02/21/20 00:00 98.9 F 66 20 115/63 97 02/20/20 19:20 99.5 F H 83 16 138/71 95 02/20/20 15:53 99.1 F H 20 131/71 98 02/20/20 11:45 99.4 F H 18 129/64 93 Intake and Output 02/20/20 02/21/20 02/21/20 21:59 05:59 13:59 Intake Total 735 200 360 Output Total 1625 250 826 [facility] -890 -50 -466 Intake: Oral 735 200 360 Output: Void Amount 1625 250 825 # of times incontinent of urine 1 Other: Meal Breakfast Percent of Meal Consumed 100% Feeding Ability Assist with Tray Set Up Urine Appearance Clear Clear Clear Urine Color Dark Yellow Dark Yellow Dark Yellow Urine Odor Normal Normal Weight 87.317 kg Medical - DS: Data Labs on day of discharge: Labs from last 24 hours 02/21/20 02/21/20 02/20/20 06:56 05:10 19:30 Total Counted Seg Neutrophils % Lymphocytes % Monocytes % (Manual) Eosinophils % (Manual) Platelet Estimate RBC Morphology PT 13.6 INR 1.0 APTT D-Dimer 8.82 H Sodium 143 Potassium 4.0 Chloride 106 Carbon Dioxide 25 Anion Gap 12.0 BUN 9 Creatinine 0.9 GFR Calculation 65 Glucose 91 Uric Acid 2.9 Calcium 9.4 Phosphorus 2.7 Magnesium 2.0 Total Bilirubin 0.9 Direct Bilirubin 0.5 H GGT 323 H AST 126 H ALT 472 H Alkaline Phosphatase 248 H Lactate Dehydrogenase 179 Total Protein 6.7 Albumin 3.3 Globulin 3.4 Albumin/Globulin Ratio 1.0 Triglycerides 88 Hepatitis A IgM Ab Hep Bs Antigen Hep B Core IgM Ab Hepatitis C Antibody HCV RNA Quant (PCR) HCV RNA PCR log IUs/ml 02/20/20 02/20/20 02/20/20 08:18 08:18 08:18 Total Counted 100 Seg Neutrophils % 79 H Lymphocytes % 10 L Monocytes % (Manual) 4 Eosinophils % (Manual) 7 Platelet Estimate Normal RBC Morphology Normal PT INR APTT D-Dimer 3.60 H Sodium Potassium Chloride Carbon Dioxide Anion Gap BUN Creatinine GFR Calculation Glucose Uric Acid Calcium Phosphorus Magnesium Total Bilirubin Direct Bilirubin GGT AST ALT Alkaline Phosphatase Lactate Dehydrogenase Total Protein Albumin Globulin Albumin/Globulin Ratio Triglycerides Hepatitis A IgM Ab Non reactive Hep Bs Antigen Negative Hep B Core IgM Ab Non reactive Hepatitis C Antibody Non reactive HCV RNA Quant (PCR) TNP HCV RNA PCR log IUs/ml TNP 02/20/20 08:18 Total Counted Seg Neutrophils % Lymphocytes % Monocytes % (Manual) Eosinophils % (Manual) Platelet Estimate RBC Morphology PT INR APTT 41 H D-Dimer Sodium Potassium Chloride Carbon Dioxide Anion Gap BUN Creatinine GFR Calculation Glucose Uric Acid Calcium Phosphorus Magnesium Total Bilirubin Direct Bilirubin GGT AST ALT Alkaline Phosphatase Lactate Dehydrogenase Total Protein Albumin Globulin Albumin/Globulin Ratio Triglycerides Hepatitis A IgM Ab Hep Bs Antigen Hep B Core IgM Ab Hepatitis C Antibody HCV RNA Quant (PCR) HCV RNA PCR log IUs/ml Preliminary micro results at discharge 02/19/20 15:52 Blood Culture - Preliminary Blood 02/19/20 15:48 Blood Culture - Preliminary Blood Medical - DS: A/P - Patient/Caregiver Discharge Instructions Activity: increase activity as tolerated Diet: Consistent Carbohydrate Prescriptions: Cephalexin [Keflex] 250 mg PO QID #8 cap - Follow up Plan Follow up with: Hailey Denis ARNP [Primary Care Provider] - Disposition: Home, Self-Care Care Plan Goals: This discharge packet is provided to you to help keep you informed about your care. We want to ensure you get everything you need when you go home. You will also be receiving a call from us in a few days to follow up with you and see how you are doing since your discharge. This gives us a chance to listen to any concerns you maybe experiencing since you were discharged or any additional needs you may have, as well as providing us feedback on your care experience. We strive to always provide excellent care and thank you for your feedback and for choosing [facility]. Prognosis: Fair Rehab Potential: Fair Overall status at discharge: patient is progressing back to baseline Medical - DS: Qual - VTE Deep Vein Thrombosis/Pulmonary Embolism Present on Admission: No
[2020-02-21] MEDS: INSULIN LISPRO 1 UNIT/0.01 ML UNIT SQ SCH ×4 (10:28→21:06)
[2020-02-21] MEDS: QUEtiapine 25 MG TABLET PO SCH (10:38)
[2020-02-21] MEDS: LOSARTAN 50 MG TABLET PO SCH (10:39)
[2020-02-21] MEDS: LEVOTHYROXINE 50 MCG TABLET PO SCH (10:39)
[2020-02-21] MEDS: amLODIPine 10 MG TABLET PO SCH (10:39)
[2020-02-21] MEDS: DOCUSATE SODIUM 100 MG CAPSULE PO SCH ×2 (10:39→21:07)
[2020-02-21] MEDS: lamoTRIgine 100 MG TABLET PO SCH (10:39)
[2020-02-21] MEDS: FAMOTIDINE 20 MG TABLET PO SCH ×2 (10:40→21:07)
[2020-02-21] MEDS: GABAPENTIN 100 MG CAPSULE PO SCH ×2 (10:40→21:07)
[2020-02-21] MEDS: LEVOTHYROXINE SODIUM 112 MCG TABLET PO SCH (10:40)
[2020-02-21] MEDS: ENOXAPARIN 40 MG/0.4 ML SYRINGE SQ SCH (10:40)
[2020-02-21] MEDS: 0.9 % SODIUM CHLORIDE 10 ML SYRINGE IV SCH ×3 (12:11→21:06)
[2020-02-21] MEDS: cefTRIAXone 1 GM VIAL IV SCH (12:12)
[2020-02-21] MEDS: LORazepam 1 MG TABLET PO SCH ×2 (12:12→17:24)
[2020-02-21] MEDS: MELATONIN 3 MG TABLET PO SCH (21:07)
[2020-02-21] MEDS: traZODone HCL 50 MG TABLET PO SCH (21:07)
[2020-02-21] MEDS: QUEtiapine 100 MG TABLET PO SCH (21:07)
[2020-02-21] MEDS: LIOTHYRONINE 5 MCG TABLET PO SCH (21:27)
[2020-02-22] MEDS: 0.9 % SODIUM CHLORIDE 10 ML SYRINGE IV SCH (04:10)
[2020-02-22 06:37] LABS: ALT/SGPT 337 U/l (0-40); AST/SGOT 46 U/l (0-37); Albumin 3.7 gm/dL (3.2-5.2); Albumin/Globulin Ratio 1.1 (1.0-2.3); Alkaline Phosphatase 246 U/L (39-117); Bilirubin,Total 0.5 mg/dL (0.0-1.0); Blood Urea Nitrogen 8 mg/dl (8-23); Calcium 9.9 mg/dl (8.6-10.4); Carbon Dioxide 24 mmol/L (22-30); Chloride 102 mmol/L (96-108); Globulin 3.4 gm/dL (2.2-3.7); Glomerular Filtration Rate 65; Glucose 138 mg/dL (70-105)
[2020-02-22] MEDS: LEVOTHYROXINE 50 MCG TABLET PO SCH (06:41)
[2020-02-22] MEDS: LEVOTHYROXINE SODIUM 112 MCG TABLET PO SCH (06:41)
[2020-02-22] MEDS: INSULIN LISPRO 1 UNIT/0.01 ML UNIT SQ SCH ×2 (06:45→11:06)
[2020-02-22] MEDS: traMADol 50 MG TABLET PO PRN (10:07)
[2020-02-22] MEDS: DOCUSATE SODIUM 100 MG CAPSULE PO SCH (10:08)
[2020-02-22] MEDS: amLODIPine 10 MG TABLET PO SCH (10:08)
[2020-02-22] MEDS: FAMOTIDINE 20 MG TABLET PO SCH (10:09)
[2020-02-22] MEDS: LOSARTAN 50 MG TABLET PO SCH (10:09)
[2020-02-22] MEDS: GABAPENTIN 100 MG CAPSULE PO SCH (10:10)
[2020-02-22] MEDS: QUEtiapine 25 MG TABLET PO SCH (10:10)
[2020-02-22] MEDS: lamoTRIgine 100 MG TABLET PO SCH (10:11)
[2020-02-22] MEDS: ENOXAPARIN 40 MG/0.4 ML SYRINGE SQ SCH (10:13)
[2020-02-22] MEDS: cefTRIAXone 1 GM VIAL IV SCH (10:15)
[2020-02-22] MEDS: LORazepam 1 MG TABLET PO SCH (11:08)
== END 2020-02-22 12:16 | disposition home or self-care (01) | DRG 70 ==
LOC: ED 15:07 → MEDSUR 02-20 02:15
PROVIDERS: ADMIT Internal Medicine; ATTEND Internal Medicine

== ENCOUNTER 2020-11-13 11:30 | Inpatient (IN) ==
[2020-11-13] MEDS ORDERED: 0.9 % SODIUM CHLORIDE 1,000 ML IV SCH (12:15)
[2020-11-13] MEDS ORDERED: LORazepam 2 MG/ML VIAL IV PRN (12:16)
--- NOTE | 2020-11-13 12:17 | Emergency Department Note ---
Altered Mental Status HPI General Chief Complaint: Altered Mental Status Stated Complaint: confusion Time Seen by Provider: 11/13/20 11:43 Source: patient and EMS Mode of arrival: EMS Limitations: altered mental status History of Present Illness HPI Narrative: This is a 70-year-old female with baseline dementia and recent evaluations in the ER for acute agitation and anxiety who suffered a unwitnessed fall this morning onto her back, was found down by her son, and EMS was called to transport her here for evaluation. Upon arrival the patient is confused. She is not able to answer questions. She is agitated and difficult to direct with multiple attempts to get out of bed. She is repeating "help me, help me," but when asked what she needs help for, cannot verbalize this. I called her son, Henry, who is a local delivery truck driver and he states that he heard a fall at around 10 AM this morning and went into the kitchen to find his mom on her back next to the chair. She was holding drinking cups in each hand and was chewing on one of them. She had not lost consciousness. He noted that she was significantly confused. He states that they have been working with the patient's psychiatrist, Dr. Paz to adjust her psych medications for her baseline agitation. He notes that since these adjustments have been made she is more agitated in the afternoon until she can receive her evening doses of her quetiapine and Lamictal. He also notes that is difficult to keep her from drinking lots of water and she must be monitored on a regular basis. She has an additional caregiver 6 days a week for 6 hours. This caregiver usually gives her her morning medications, and the son is the one to give her he r evening medications. He states that she received both her p.m. and and medications over the last 24 hours. He denies that she has had any significant recent illness, but reports some sinus congestion. She has not received anything for this. A rapid Covid screen test is negative in our ER today. She is afebrile and her blood pressures are stable. Urinalysis is pending for foul-smelling and discolored urine. Of note, the son states that his mother has refused to go into a detention facility or adult family home. They are working on obtaining legal guardianship so this decision can be made on her behalf. He notes that she is having frequent falls and believes this is likely related to her psych medication, which makes her less steady on her feet. Related Data Home Medications Medication Instructions Recorded Confirmed lamotrigine 200 mg PO DAILY 06/09/18 11/13/20 lorazepam 1 mg PO BID@1200,1800 06/09/18 11/13/20 quetiapine 300 mg PO HS 06/10/18 11/13/20 amlodipine 10 mg PO DAILY 05/25/19 11/13/20 aspirin [Adult Low Dose Aspirin] 81 mg PO BID 04/25/20 11/13/20 atorvastatin 40 mg PO QDAY 04/25/20 11/13/20 linaclotide [Linzess] 290 mcg PO QDAY 04/25/20 11/13/20 levothyroxine 125 mcg PO QDAYAC 11/13/20 11/13/20 metformin 1,000 mg PO QDAY 11/13/20 11/13/20 quetiapine 100 mg PO BID 11/13/20 11/13/20 trazodone 50 mg PO QHS PRN 11/13/20 11/13/20 Previous Rx's Medication Instructions Recorded losartan 100 mg PO DAILY #30 tab 06/22/19 Allergies Allergy/AdvReac Type Severity Reaction Status Date / Time Penicillins Allergy Severe Swelling Verified 11/13/20 21:13 of Throat bee venom protein (honey bee) Allergy Verified 11/13/20 21:13 Review of Systems ROS ROS Narrative: Narrative: All systems ED: reviewed and negative except as stated. [facility] Narrative Patient History Narrative: Narrative: Medical/Surgical/Family History All Active Problems (Updated 11/14/20 @ 02:33 by Nicki London PA-C) Suicidal ideation (Acute) Acute anxiety (Acute) SASKIA (generalized anxiety disorder) (Acute) Manipulative behavior (Acute) AMS (altered mental status) (Acute) Psychogenic polydipsia (Acute) Acute hyponatremia (Acute) Acute urinary retention (Acute) Leukocytosis (Acute) Osteoarthritis of left knee (Acute) Hip arthritis (Acute) Hepatitis (Acute) Dizziness (Acute) Polydipsia (Chronic) Peptic ulcer disease (Chronic) Hypokalemia (Chronic) Hyponatremia (Chronic) Anxiety (Chronic) Acute anxiety (Chronic) Panic disorder (Chronic) Altered mental status (Chronic) Psychogenic polydipsia (Chronic) Hyponatremia (Chronic) Hypochloremia (Chronic) Cigarette smoker (Chronic) Diabetes mellitus type 2, controlled (Chronic) Alzheimer's disease (Chronic) Bipolar disorder (Chronic) Elevated serum GGT level (Chronic) Hypertension, essential (Chronic) Hyperlipidemia (Chronic) Hypothyroidism (acquired) (Chronic) Obesity (Chronic) Constipation (Chronic) Vitamin D deficiency (Chronic) Osteoporosis (Chronic) Osteopenia (Chronic) Anxiety about health (Chronic) Cognitive dysfunction (Chronic) Depression (Chronic) Medical History Abdominal pain (Resolved) Acute anxiety (Resolved) Acute anxiety (Chronic) Acute cystitis with hematuria (Resolved) Acute dehydration (Inactive) Altered mental status (Chronic) Alzheimer's disease (Chronic) Ankle fracture (Resolved) Anxiety (Resolved) Anxiety (Chronic) Anxiety about health (Chronic) Bimalleolar fracture of right ankle (Resolved) Bipolar disorder (Chronic) Cigarette smoker (Chronic) Cognitive dysfunction (Chronic) Constipation (Chronic) 05/27/16; 05/16/18; Cough (Resolved) Depression (Chronic) Diabetes mellitus type 2, controlled (Chronic) Elevated lactic acid level (Resolved) Elevated serum GGT level (Chronic) Encephalopathy acute (Resolved) Encounter for medication refill (Inactive) Episode of generalized weakness (Inactive) Flea bite (Resolved) Foot pain, right (Resolved) Hyperlipidemia (Chronic) Hypertension, essential (Chronic) Hypochloremia (Chronic) Hypokalemia (Resolved) Hypokalemia (Chronic) Hyponatremia (Chronic) Hyponatremia (Chronic) Hyponatremia with excess extracellular fluid volume (Resolved) Hypothyroidism (acquired) (Chronic) Nausea & vomiting (Resolved) Obesity (Chronic) Osteopenia (Chronic) Osteoporosis (Chronic) Panic disorder (Chronic) Peptic ulcer disease (Chronic) Polydipsia (Chronic) Psychogenic polydipsia (Chronic) Rectal pain (Resolved) Schwannoma (Resolved 02/06/12) Ear Seborrhea (Inactive) Sepsis (Resolved) Urinary tract infection (Resolved) UTI (urinary tract infection) (Resolved) Vitamin D deficiency (Chronic) Yeast infection (Resolved) Surgical History H/O colonoscopy (Inactive 12/15/17) 11/15/14, 08/23/2015 History of appendectomy (Chronic ~10/11/98) S/P ORIF (open reduction internal fixation) fracture (Chronic) Right trimalleolur ORIF with syndesmosis fixation, due to fracture S/P LIZETH-BSO (Chronic ~10/11/98) Family History Mother Arthritis Essential hypertension Father Myocardial Infarction Unknown Chronic obstructive pulmonary disease Social History Smoking Status: Current every day smoker Alcohol Intake Frequency: does not drink Substance Use: does not use Exam Narrative Narrative: General: Alert, oriented to self and place. Agitated. Difficult to redirect. Stating "help me, help me." HEENT: PERRLA, EOMI, normocephalic. Moist mucous membranes. Normal facies and normal dentition. Head without obvious trauma. Chest: Symmetric Respiratory: Lungs clear to auscultation bilaterally. No respiratory distress. Unlabored breathing. Heart: Regular rate and rhythm, no murmurs/clicks/rubs. Abdomen: Non-tender, Non distended, normal bowel tones. No organomegaly. Extremities: Warm and well perfused. No edema. DP 2+ bilaterally. No venous stasis. Multiple scratches on the bilateral lower extremities. No obvious bruising. Neuro: No focal motor or sensory defects. Cranial nerves II-XII normal. Skin: Warm dry, no rashes or lesions, no cyanosis. Psych: Agitated and confused. Heme/Lymph: No bruising General Limitations: altered mental status Course Course Course Narrative: 70-year-old female presents after an unwitnessed fall this morning with altered mental status. Reevaluation(s) Reevaluation #1: Head CT, chest x-ray, infectious work-up to include CBC, CMP, blood cultures, and urinalysis Rapid Covid screen is negative Has h/o hypothyroidism: check TSH Reevaluation #2: Sodium came back at 114. This corrected to 115 for pseudohyponatremia. Repeat serum sodium is pending. CBC came back with significant leukocytosis of 17.6. Blood cultures x2 are pending. Urinalysis is within normal limits. TSH is pending. Patient has been afebrile during this evaluation. Awaiting hospitalist consult for admission. Nursing reporting significant urinary retention with 1900 cc UOP after placement of vieira catheter and improved agitation. Vital Signs Vital signs: Vital Signs Respiratory Rate 20 11/13/20 12:05 Blood Pressure 158/106 11/13/20 12:05 Temperature 99.1 F H 11/13/20 23:13 Pulse Rate 82 11/13/20 23:13 Respiratory Rate 22 11/13/20 23:13 Blood Pressure 103/69 11/13/20 23:13 Pulse Oximetry (%) 95 11/13/20 23:13 MDM MDM Narrative Medical decision making narrative: Hyponatremia: Multifactorial, both in the setting of what sounds like psychogenic polydipsia and long-term use of atypical antipsychotics. She has baseline hyponatremia, but in the setting of acute confusion and recurrent falls there is an indication for admission. TSH is pending. Leukocytosis: Unclear source. Her urinalysis is within normal limits. Chest x- ray without acute infiltrates. Rapid Covid screen is negative and her reflex Covid screen is pending. Altered mental status: In the setting of hyponatremia and leukocytosis. TSH is also pending -given her above findings, the patient is appropriate for admission and further monitoring -Recheck of her sodium came back at 121. Hospitalist has agreed to admission. Lab Data Result diagrams: 11/13/20 13:37 11/13/20 23:25 Labs: Lab Results 11/13/20 11/13/20 11/13/20 Range/Units 12:19 12:19 12:19 WBC (4.5-11.0) K/mcL RBC (4.00-5.20) M/mcL Hgb (12.0-15.0) g/dL Hct (36.0-48.0) % POC Hct (36-48) % MCV (80.0-100.0) fL MCH (26.0-34.0) pg MCHC (31.0-36.0) g/dL RDW (11.5-14.5) % Plt Count (140-440) K/mcL MPV (7.4-10.4) fL Seg Neutrophils % TNP Band Neutrophils % TNP Lymphocytes % TNP Monocytes % (Manual) TNP Eosinophils % (Manual) TNP Basophils % (Manual) TNP Metamyelocytes % TNP Myelocytes % TNP Promyelocytes % TNP Nucleated RBCs TNP WBC Morphology TNP Vacuolated Neuts TNP Plasmacytoid Lymphs TNP Reactive Lymphocytes TNP Blast Cells TNP Plasma Cells TNP Other Cell Type TNP Toxic Granulation TNP Dohle Bodies TNP Platelet Estimate TNP RBC Morphology TNP Polychromasia TNP Hypochromasia TNP Poikilocytosis TNP Basophilic Stippling TNP Anisocytosis TNP Microcytosis TNP Macrocytosis TNP Spherocytes TNP Pappenheimer Bodies TNP Target Cells TNP Tear Drop Cells TNP Ovalocytes TNP Stomatocytes TNP Helmet Cells TNP [place] Bodies TNP Lauro Cells TNP Acanthocytes (Spur) TNP RBC Fragments TNP VBG Lactic Acid 1.7 (0.5-2.0) mmol/L POC Sodium (133-145) mEq/L Sodium 114 L* (133-145) mmol/L POC Potassium (3.3-5.1) mEql/L Potassium 3.7 (3.3-5.1) mmol/L POC Chloride (96-108) mEq/L Chloride 80 L (96-108) mmol/L Carbon Dioxide 19 L (22-30) mmol/L POC Total CO2 (22-30) mmol/L Anion Gap 15.0 (8.0-16.0) POC BUN (6-20) mg/dL BUN 9 (8-23) mg/dL Creatinine 1.0 (0.6-1.1) mg/dL POC Creatinine (0.6-1.2) mg/dL GFR Calculation 57 Glucose 150 H (70-105) mg/dL POC Glucose (70-105) mg/dL Calcium 9.2 (8.6-10.4) mg/dL POC WB Ioniz Calcium (1.16-1.32) mmEq/L Total Bilirubin 0.5 (0.1-1.0) mg/dL AST 23 (<32) U/L ALT 18 (<40) U/L Alkaline Phosphatase 85 (39-117) U/L Total Protein 7.7 (5.9-8.4) gm/dL Albumin 4.5 (3.2-5.2) gm/dL Globulin 3.2 (2.2-3.7) gm/dL Albumin/Globulin Ratio 1.4 (1.0-2.3) TSH (0.27-5.01) uIU/mL Urine Color Urine Appearance (Clear) Urine pH (5.0-9.0) Ur Specific [place] (1.000-1.035) Urine Protein (Negative) mg/dL Urine Glucose (UA) (Negative) mg/dL Urine Ketones (Negative) mg/dL Urine Occult Blood (Negative) mg/dL Urine Nitrate (Negative) Urine Bilirubin (Negative) mg/dL Urine Urobilinogen mg/dL Ur Leukocyte Esterase (Negative) /ug Urine RBC (0-3) /hpf Urine WBC (0-4) /hpf Ur Squamous Epith Cells (0-4) /hpf Urine Bacteria (0) /hpf Ur Culture Indicated? 11/13/20 11/13/20 11/13/20 Range/Units 12:40 13:37 14:40 WBC 17.6 H (4.5-11.0) K/mcL RBC 4.31 (4.00-5.20) M/mcL Hgb 12.8 (12.0-15.0) g/dL Hct 36.5 (36.0-48.0) % POC Hct 41 (36-48) % MCV 84.7 (80.0-100.0) fL MCH 29.7 (26.0-34.0) pg MCHC 35.1 (31.0-36.0) g/dL RDW 12.2 (11.5-14.5) % Plt Count 346 (140-440) K/mcL MPV 9.3 (7.4-10.4) fL Seg Neutrophils % 84 H Band Neutrophils % 1 Lymphocytes % 13 L Monocytes % (Manual) 2 Eosinophils % (Manual) Basophils % (Manual) Metamyelocytes % Myelocytes % Promyelocytes % Nucleated RBCs WBC Morphology Vacuolated Neuts Plasmacytoid Lymphs Reactive Lymphocytes Blast Cells Plasma Cells Other Cell Type Toxic Granulation Dohle Bodies Platelet Estimate Normal RBC Morphology Normal Polychromasia Hypochromasia Poikilocytosis Basophilic Stippling Anisocytosis Microcytosis Macrocytosis Spherocytes Pappenheimer Bodies Target Cells Tear Drop Cells Ovalocytes Stomatocytes Helmet Cells [place] Bodies Lauro Cells Acanthocytes (Spur) RBC Fragments VBG Lactic Acid (0.5-2.0) mmol/L POC Sodium 123 L (133-145) mEq/L Sodium (133-145) mmol/L POC Potassium 3.5 (3.3-5.1) mEql/L Potassium (3.3-5.1) mmol/L POC Chloride 90 L (96-108) mEq/L Chloride (96-108) mmol/L Carbon Dioxide (22-30) mmol/L POC Total CO2 22 (22-30) mmol/L Anion Gap (8.0-16.0) POC BUN 8 (6-20) mg/dL BUN (8-23) mg/dL Creatinine (0.6-1.1) mg/dL POC Creatinine 0.8 (0.6-1.2) mg/dL GFR Calculation Glucose (70-105) mg/dL POC Glucose 106 H (70-105) mg/dL Calcium (8.6-10.4) mg/dL POC WB Ioniz Calcium 1.11 L (1.16-1.32) mmEq/L Total Bilirubin (0.1-1.0) mg/dL AST (<32) U/L ALT (<40) U/L Alkaline Phosphatase (39-117) U/L Total Protein (5.9-8.4) gm/dL Albumin (3.2-5.2) gm/dL Globulin (2.2-3.7) gm/dL Albumin/Globulin Ratio (1.0-2.3) TSH 19.94 H (0.27-5.01) uIU/mL Urine Color Colorless Urine Appearance Clear (Clear) Urine pH 6.0 (5.0-9.0) Ur Specific [place] 1.002 (1.000-1.035) Urine Protein Negative (Negative) mg/dL Urine Glucose (UA) Negative (Negative) mg/dL Urine Ketones Negative (Negative) mg/dL Urine Occult Blood 0.03 (Negative) mg/dL Urine Nitrate Negative (Negative) Urine Bilirubin Negative (Negative) mg/dL Urine Urobilinogen Negative mg/dL Ur Leukocyte Esterase Negative (Negative) /ug Urine RBC 0 (0-3) /hpf Urine WBC 0 (0-4) /hpf Ur Squamous Epith Cells < 1 (0-4) /hpf Urine Bacteria None (0) /hpf Ur Culture Indicated? No 11/13/20 Range/Units 14:40 WBC (4.5-11.0) K/mcL RBC (4.00-5.20) M/mcL Hgb (12.0-15.0) g/dL Hct (36.0-48.0) % POC Hct (36-48) % MCV (80.0-100.0) fL MCH (26.0-34.0) pg MCHC (31.0-36.0) g/dL RDW (11.5-14.5) % Plt Count (140-440) K/mcL MPV (7.4-10.4) fL Seg Neutrophils % Band Neutrophils % Lymphocytes % Monocytes % (Manual) Eosinophils % (Manual) Basophils % (Manual) Metamyelocytes % Myelocytes % Promyelocytes % Nucleated RBCs WBC Morphology Vacuolated Neuts Plasmacytoid Lymphs Reactive Lymphocytes Blast Cells Plasma Cells Other Cell Type Toxic Granulation Dohle Bodies Platelet Estimate RBC Morphology Polychromasia Hypochromasia Poikilocytosis Basophilic Stippling Anisocytosis Microcytosis Macrocytosis Spherocytes Pappenheimer Bodies Target Cells Tear Drop Cells Ovalocytes Stomatocytes Helmet Cells [place] Bodies [place] Cells Acanthocytes (Spur) RBC Fragments VBG Lactic Acid (0.5-2.0) mmol/L POC Sodium (133-145) mEq/L Sodium 121 L (133-145) mmol/L POC Potassium (3.3-5.1) mEql/L Potassium (3.3-5.1) mmol/L POC Chloride (96-108) mEq/L Chloride (96-108) mmol/L Carbon Dioxide (22-30) mmol/L POC Total CO2 (22-30) mmol/L Anion Gap (8.0-16.0) POC BUN (6-20) mg/dL BUN (8-23) mg/dL Creatinine (0.6-1.1) mg/dL POC Creatinine (0.6-1.2) mg/dL GFR Calculation Glucose (70-105) mg/dL POC Glucose (70-105) mg/dL Calcium (8.6-10.4) mg/dL POC WB Ioniz Calcium (1.16-1.32) mmEq/L Total Bilirubin (0.1-1.0) mg/dL AST (<32) U/L ALT (<40) U/L Alkaline Phosphatase (39-117) U/L Total Protein (5.9-8.4) gm/dL Albumin (3.2-5.2) gm/dL Globulin (2.2-3.7) gm/dL Albumin/Globulin Ratio (1.0-2.3) TSH (0.27-5.01) uIU/mL Urine Color Urine Appearance (Clear) Urine pH (5.0-9.0) Ur Specific [place] (1.000-1.035) Urine Protein (Negative) mg/dL Urine Glucose (UA) (Negative) mg/dL Urine Ketones (Negative) mg/dL Urine Occult Blood (Negative) mg/dL Urine Nitrate (Negative) Urine Bilirubin (Negative) mg/dL Urine Urobilinogen mg/dL Ur Leukocyte Esterase (Negative) /ug Urine RBC (0-3) /hpf Urine WBC (0-4) /hpf Ur Squamous Epith Cells (0-4) /hpf Urine Bacteria (0) /hpf Ur Culture Indicated? Discharge Plan Patient/Caregiver Discharge Instructions Pt seen by [employer] INSPECTOR/PA only: Yes Clinical Impression: AMS (altered mental status), Psychogenic polydipsia, Acute hyponatremia, Acute urinary retention, Leukocytosis Patient Disposition: Xfer As Inpt ([facility]) Condition: Fair Discharge Date/Time: 11/13/20 19:36
[2020-11-13] MEDS ORDERED: 0.9 % SODIUM CHLORIDE 1,000 ML IV ONE (12:43)
[2020-11-13] MEDS ORDERED: HALOPERIDOL LACTATE 5 MG/ML VIAL IV PRN (13:29)
[2020-11-13 13:34] LABS: Appearance,Urine CLEAR (Clear); Bilirubin,Urine Negative (Negative); Color,Urine COLORLESS; Culture Indicated,Urine No; Glucose,Urine (UA) Negative (Negative); Ketones,Urine Negative (Negative); Leukocyte Esterase,Urine Negative /ug (Negative); Nitrate,Urine Negative (Negative); Protein,Urine Negative (Negative); Specific Gravity,Urine 1.002 (1.000-1.035); Urine Blood 0.03 mg/dL (Negative); Urine RBC 0 /hpf (0-3); Urine Squamous Epithelial Cell < 1 /hpf (0-4); Urine WBC 0 /hpf (0-4); Urobilinogen,Urine Negative
--- NOTE | 2020-11-13 13:36 | XRay Report ---
CLINICAL INFORMATION: altered mental status. COMPARISON: 08/15/2020 FINDINGS: Heart size, mediastinum and pulmonary vessels are normal. Lungs are clear. No effusions. 1 cm loose body overlies the right subscapularis bursa as before IMPRESSION: No acute disease Interpreted and Authenticated by: Paul Harper 11/13/20
--- NOTE | 2020-11-13 13:39 | Cat Scan Report ---
CLINICAL INFORMATION: Trauma acute mental status changes COMPARISON: 08/15/2020 TECHNIQUE: 2.5 mm helical slices were obtained in the skull base to vertex. Following reconstruction, axial reformatted images were reviewed at bone and parenchymal windows. The exam was performed using radiation dose optimization techniques including, but not limited to, automated exposure control, adjustment of the mA and/or kV according to patient size and use of iterative reconstruction technique. FINDINGS: The ventricles, sulci, fissures, and cisterns are normal in size and configuration for age. No extra-axial fluid collections are identified. Moderate patchy chronic ischemic changes in the cerebral white matter, expected for age are stable. There is no evidence of hemorrhage, mass effect, or edema. Bone windows show no osseous abnormality. IMPRESSION: Mild atrophy and patchy chronic ischemic changes in the deep cerebral white matter are expected for age and stable. No intracerebral hemorrhage or other acute finding. Interpreted and Authenticated by: Paul Harper 11/13/20
[2020-11-13 13:44] LABS: ALT/SGPT 18 U/L (<40); AST/SGOT 23 U/L (<32); Albumin 4.5 gm/dL (3.2-5.2); Albumin/Globulin Ratio 1.4 (1.0-2.3); Alkaline Phosphatase 85 U/L (39-117); Bilirubin,Total 0.5 mg/dL (0.1-1.0); Blood Urea Nitrogen 9 mg/dL (8-23); Calcium 9.2 mg/dL (8.6-10.4); Carbon Dioxide 19 mmol/L (22-30); Chloride 80 mmol/L (96-108); Globulin 3.2 gm/dL (2.2-3.7); Glomerular Filtration Rate 57; Glucose 150 mg/dL (70-105)
[2020-11-13 14:48] LABS: POC Blood Urea Nitrogen 8 mg/dL (6-20); POC CO2 22 mmol/L (22-30); POC Calcium, Ionized 1.11 mmEq/L (1.16-1.32); POC Chloride 90 mEq/L (96-108); POC Creatinine 0.8 mg/dL (0.6-1.2); POC Glucose, Random 106 mg/dL (70-105); POC Hematocrit 41 % (36-48); POC Potassium 3.5 mEql/L (3.3-5.1); POC Sodium 123 mEq/L (133-145)
[2020-11-13 14:53] LABS: Hematocrit 36.5 % (36.0-48.0); Hemoglobin 12.8 g/dL (12.0-15.0); Mean Cell Volume 84.7 fL (80.0-100.0); Mean Corpuscular HGB Conc 35.1 g/dL (31.0-36.0); Mean Platelet Volume 9.3 fL (7.4-10.4); Platelet Count 346 K/mcL (140-440); RBC 4.31 M/mcL (4.00-5.20); Red Cell Distribution Width 12.2 % (11.5-14.5); WBC 17.6 K/mcL (4.5-11.0)
[2020-11-13 15:43] LABS: Band Neutrophils % 1 % (0-10); Lymphocytes % 13 % (15-49); Monocytes % (Manual) 2 % (1-12); Platelet Estimate NORMAL (Normal); RBC Morphology NORMAL (Normal); Segmented Neutrophils % 84 % (38-78)
[2020-11-13 16:02] LABS: Thyroid Stimulating Hormone 19.94 uIU/mL (0.27-5.01)
[2020-11-13] MEDS ORDERED: ONDANSETRON 4 MG/2 ML VIAL IV PRN (18:39)
[2020-11-13] MEDS ORDERED: amLODIPine 10 MG TABLET PO SCH (21:00)
--- NOTE | 2020-11-13 21:12 | Internal Med History&Physical ---
HPI History of Present Illness Patient information: Note initiated : 11/13/20 at 9:06 pm Service Date, if different from initiated Date: [] Patient: Cynthia Kirby 70 y/o F admitted on 11/13/20 for confusion. Chief Complaint: [hyponatremia] History of present illness: Ms. Kirby is a 70 year old female with a history of dementia who fell at home and was brought to the ED where she was found to have hyponatremia and urinary retention. Review of Systems ROS unobtainable: due to mental status PFSH PFSH All Active Problems Suicidal ideation (Acute) Acute anxiety (Acute) SASKIA (generalized anxiety disorder) (Acute) Manipulative behavior (Acute) Osteoarthritis of left knee (Acute) Hip arthritis (Acute) Hepatitis (Acute) Dizziness (Acute) Polydipsia (Chronic) Peptic ulcer disease (Chronic) Hypokalemia (Chronic) Hyponatremia (Chronic) Anxiety (Chronic) Acute anxiety (Chronic) Panic disorder (Chronic) Altered mental status (Chronic) Psychogenic polydipsia (Chronic) Hyponatremia (Chronic) Hypochloremia (Chronic) Cigarette smoker (Chronic) Diabetes mellitus type 2, controlled (Chronic) Alzheimer's disease (Chronic) Bipolar disorder (Chronic) Elevated serum GGT level (Chronic) Hypertension, essential (Chronic) Hyperlipidemia (Chronic) Hypothyroidism (acquired) (Chronic) Obesity (Chronic) Constipation (Chronic) Vitamin D deficiency (Chronic) Osteoporosis (Chronic) Osteopenia (Chronic) Anxiety about health (Chronic) Cognitive dysfunction (Chronic) Depression (Chronic) Medical History Abdominal pain (Resolved) Acute anxiety (Resolved) Acute anxiety (Chronic) Acute cystitis with hematuria (Resolved) Acute dehydration (Inactive) Altered mental status (Chronic) Alzheimer's disease (Chronic) Ankle fracture (Resolved) Anxiety (Resolved) Anxiety (Chronic) Anxiety about health (Chronic) Bimalleolar fracture of right ankle (Resolved) Bipolar disorder (Chronic) Cigarette smoker (Chronic) Cognitive dysfunction (Chronic) Constipation (Chronic) 05/27/16; 05/16/18; Cough (Resolved) Depression (Chronic) Diabetes mellitus type 2, controlled (Chronic) Elevated lactic acid level (Resolved) Elevated serum GGT level (Chronic) Encephalopathy acute (Resolved) Encounter for medication refill (Inactive) Episode of generalized weakness (Inactive) Flea bite (Resolved) Foot pain, right (Resolved) Hyperlipidemia (Chronic) Hypertension, essential (Chronic) Hypochloremia (Chronic) Hypokalemia (Resolved) Hypokalemia (Chronic) Hyponatremia (Chronic) Hyponatremia (Chronic) Hyponatremia with excess extracellular fluid volume (Resolved) Hypothyroidism (acquired) (Chronic) Nausea & vomiting (Resolved) Obesity (Chronic) Osteopenia (Chronic) Osteoporosis (Chronic) Panic disorder (Chronic) Peptic ulcer disease (Chronic) Polydipsia (Chronic) Psychogenic polydipsia (Chronic) Rectal pain (Resolved) Schwannoma (Resolved 02/06/12) Ear Seborrhea (Inactive) Sepsis (Resolved) Urinary tract infection (Resolved) UTI (urinary tract infection) (Resolved) Vitamin D deficiency (Chronic) Yeast infection (Resolved) Surgical History H/O colonoscopy (Inactive 12/15/17) 11/15/14, 08/23/2015 History of appendectomy (Chronic ~10/11/98) S/P ORIF (open reduction internal fixation) fracture (Chronic) Right trimalleolur ORIF with syndesmosis fixation, due to fracture S/P LIZETH-BSO (Chronic ~10/11/98) Family History Mother Arthritis Essential hypertension Father Myocardial Infarction Unknown Chronic obstructive pulmonary disease Social History (Updated 12/25/18 @ 14:30 by Katelyn Valdes PA-C) marital status: other: Children-1 smoking status: Current every day smoker alcohol intake frequency: does not drink substance use type: does not use MEDS/ALLERGIES Home Medications and Allergies Home Medications Medication Instructions Recorded Confirmed Type lamotrigine 200 mg PO DAILY 06/09/18 11/13/20 History lorazepam 1 mg PO BID@1200,1800 06/09/18 11/13/20 History quetiapine 300 mg PO HS 06/10/18 11/13/20 History amlodipine 10 mg PO DAILY 05/25/19 11/13/20 History losartan 100 mg PO DAILY #30 tab 06/22/19 11/13/20 Rx aspirin [Adult Low Dose Aspirin] 81 mg PO BID 04/25/20 11/13/20 History atorvastatin 40 mg PO QDAY 04/25/20 11/13/20 History linaclotide [Linzess] 290 mcg PO QDAY 04/25/20 11/13/20 History levothyroxine 125 mcg PO QDAYAC 11/13/20 11/13/20 History metformin 1,000 mg PO QDAY 11/13/20 11/13/20 History quetiapine 100 mg PO BID 11/13/20 11/13/20 History trazodone 50 mg PO QHS PRN 11/13/20 11/13/20 History Allergies Allergy/AdvReac Type Severity Reaction Status Date / Time Penicillins Allergy Severe Swelling Verified 11/13/20 21:13 of Throat bee venom protein (honey bee) Allergy Verified 11/13/20 21:13 EXAM Constitutional Vitals: Temp Pulse Resp BP Pulse Ox 98.9 F 71 20 152/87 96 11/13/20 19:51 11/13/20 19:51 11/13/20 19:51 11/13/20 19:51 11/13/20 19:51 Head Head exam: Present atraumatic and normal inspection Eye Eye exam: Present normal appearance; Absent scleral icterus Neck Neck exam: Present full ROM Respiratory Respiratory exam: Absent accessory muscle use and respiratory distress Cardiovascular Cardiovascular exam: Present normal rate and rhythm GI/Abdominal GI/Abdominal exam: Present soft; Absent guarding and rebound Extremities Exam Extremities exam: Present full ROM and normal inspection Neurological Exam Neurological exam: Present alert, altered and CN II-XII intact Psychiatric Psychiatric exam: Present anxious Skin Skin exam: Present normal color and warm DATA Data Completed and Pending Labs: Labs from last 24 hours 11/13/20 11/13/20 11/13/20 14:40 14:40 13:37 WBC 17.6 H RBC 4.31 Hgb 12.8 Hct 36.5 POC Hct 41 MCV 84.7 MCH 29.7 MCHC 35.1 RDW 12.2 Plt Count 346 MPV 9.3 Seg Neutrophils % 84 H Band Neutrophils % 1 Lymphocytes % 13 L Monocytes % (Manual) 2 Eosinophils % (Manual) Basophils % (Manual) Metamyelocytes % Myelocytes % Promyelocytes % Nucleated RBCs WBC Morphology Vacuolated Neuts Plasmacytoid Lymphs Reactive Lymphocytes Blast Cells Plasma Cells Other Cell Type Toxic Granulation Dohle Bodies Platelet Estimate Normal RBC Morphology Normal Polychromasia Hypochromasia Poikilocytosis Basophilic Stippling Anisocytosis Microcytosis Macrocytosis Spherocytes Pappenheimer Bodies Target Cells Tear Drop Cells Ovalocytes Stomatocytes Helmet Cells [place] Bodies [place] Cells Acanthocytes (Spur) RBC Fragments VBG Lactic Acid POC Sodium 123 L Sodium 121 L POC Potassium 3.5 Potassium POC Chloride 90 L Chloride Carbon Dioxide POC Total CO2 22 Anion Gap POC BUN 8 BUN Creatinine POC Creatinine 0.8 GFR Calculation Glucose POC Glucose 106 H Calcium POC WB Ioniz Calcium 1.11 L Total Bilirubin AST ALT Alkaline Phosphatase Total Protein Albumin Globulin Albumin/Globulin Ratio TSH 19.94 H Urine Color Urine Appearance Urine pH Ur Specific [place] Urine Protein Urine Glucose (UA) Urine Ketones Urine Occult Blood Urine Nitrate Urine Bilirubin Urine Urobilinogen Ur Leukocyte Esterase Urine RBC Urine WBC Ur Squamous Epith Cells Urine Bacteria Ur Culture Indicated? 11/13/20 11/13/20 11/13/20 12:40 12:19 12:19 WBC RBC Hgb Hct POC Hct MCV MCH MCHC RDW Plt Count MPV Seg Neutrophils % Band Neutrophils % Lymphocytes % Monocytes % (Manual) Eosinophils % (Manual) Basophils % (Manual) Metamyelocytes % Myelocytes % Promyelocytes % Nucleated RBCs WBC Morphology Vacuolated Neuts Plasmacytoid Lymphs Reactive Lymphocytes Blast Cells Plasma Cells Other Cell Type Toxic Granulation Dohle Bodies Platelet Estimate RBC Morphology Polychromasia Hypochromasia Poikilocytosis Basophilic Stippling Anisocytosis Microcytosis Macrocytosis Spherocytes Pappenheimer Bodies Target Cells Tear Drop Cells Ovalocytes Stomatocytes Helmet Cells [place] Bodies [place] Cells Acanthocytes (Spur) RBC Fragments VBG Lactic Acid 1.7 POC Sodium Sodium 114 L* POC Potassium Potassium 3.7 POC Chloride Chloride 80 L Carbon Dioxide 19 L POC Total CO2 Anion Gap 15.0 POC BUN BUN 9 Creatinine 1.0 POC Creatinine GFR Calculation 57 Glucose 150 H POC Glucose Calcium 9.2 POC WB Ioniz Calcium Total Bilirubin 0.5 AST 23 ALT 18 Alkaline Phosphatase 85 Total Protein 7.7 Albumin 4.5 Globulin 3.2 Albumin/Globulin Ratio 1.4 TSH Urine Color Colorless Urine Appearance Clear Urine pH 6.0 Ur Specific [place] 1.002 Urine Protein Negative Urine Glucose (UA) Negative Urine Ketones Negative Urine Occult Blood 0.03 Urine Nitrate Negative Urine Bilirubin Negative Urine Urobilinogen Negative Ur Leukocyte Esterase Negative Urine RBC 0 Urine WBC 0 Ur Squamous Epith Cells < 1 Urine Bacteria None Ur Culture Indicated? No 11/13/20 12:19 WBC Pending RBC Pending Hgb Pending Hct Pending POC Hct MCV Pending MCH Pending MCHC Pending RDW Pending Plt Count Pending MPV Pending Seg Neutrophils % TNP Band Neutrophils % TNP Lymphocytes % TNP Monocytes % (Manual) TNP Eosinophils % (Manual) TNP Basophils % (Manual) TNP Metamyelocytes % TNP Myelocytes % TNP Promyelocytes % TNP Nucleated RBCs TNP WBC Morphology TNP Vacuolated Neuts TNP Plasmacytoid Lymphs TNP Reactive Lymphocytes TNP Blast Cells TNP Plasma Cells TNP Other Cell Type TNP Toxic Granulation TNP Dohle Bodies TNP Platelet Estimate TNP RBC Morphology TNP Polychromasia TNP Hypochromasia TNP Poikilocytosis TNP Basophilic Stippling TNP Anisocytosis TNP Microcytosis TNP Macrocytosis TNP Spherocytes TNP Pappenheimer Bodies TNP Target Cells TNP Tear Drop Cells TNP Ovalocytes TNP Stomatocytes TNP Helmet Cells TNP [place] Bodies TNP [place] Cells TNP Acanthocytes (Spur) TNP RBC Fragments TNP VBG Lactic Acid POC Sodium Sodium POC Potassium Potassium POC Chloride Chloride Carbon Dioxide POC Total CO2 Anion Gap POC BUN BUN Creatinine POC Creatinine GFR Calculation Glucose POC Glucose Calcium POC WB Ioniz Calcium Total Bilirubin AST ALT Alkaline Phosphatase Total Protein Albumin Globulin Albumin/Globulin Ratio TSH Urine Color Urine Appearance Urine pH Ur Specific [place] Urine Protein Urine Glucose (UA) Urine Ketones Urine Occult Blood Urine Nitrate Urine Bilirubin Urine Urobilinogen Ur Leukocyte Esterase Urine RBC Urine WBC Ur Squamous Epith Cells Urine Bacteria Ur Culture Indicated? A/P Narrative A/P Narrative: ASSESSMENT #Acute on chronic hyponatremia-likely due to psychogenic polydipsia #Urinary retention-s/p ED vieira catheter placement #Leukocytosis-likely stress reaction #Dementia with behavioral disturbances #Hypothyroidism-poorly controlled (TSH 19.4) #Hypertension #Diabetes mellitus type 2 PLAN -follow sodium closely/avoid overcorrection >8 mEq/24 hrs -fluid restriction -follow CBC and chemistry panel -Lantus and SSI -resume home medications except Metformin -consider increasing levothyroxine if collateral information suggests that the patient is taking the current dose correctly -remove vieira catheter when able -review goals of care with family Time Spent With Patient Time: Total time spent is greater than 50% in coordination of care (as documented) at patient's floor/unit and/or counseling patient: QUALITY VTE Deep Vein Thrombosis/Pulmonary Embolism Present on Admission: No
[2020-11-13] MEDS ORDERED: traZODone HCL 50 MG TABLET PO PRN (21:17)
[2020-11-13] MEDS ORDERED: DEXTROSE 31 GM ORAL.SUSP PO PRN (21:20)
[2020-11-13] MEDS ORDERED: DEXTROSE 50% 50 ML VIAL IV PRN (21:20)
[2020-11-13] MEDS: SENNOSIDES 1 TABLET PO SCH (21:49)
[2020-11-13] MEDS: ASPIRIN 81 MG TAB.CHEW PO SCH (21:49)
[2020-11-13] MEDS: DOCUSATE SODIUM 100 MG CAPSULE PO SCH (21:49)
[2020-11-13] MEDS: QUEtiapine 100 MG TABLET PO SCH (21:49)
[2020-11-13] MEDS: INSULIN GLARGINE, HUMAN 1 UNIT/0.01 ML SQ SCH (21:50)
[2020-11-13] MEDS: 0.9 % SODIUM CHLORIDE 10 ML SYRINGE IV SCH (21:54)
[2020-11-13 21:59] LABS: Blood Urea Nitrogen 9 mg/dL (8-23); Calcium 10.4 mg/dL (8.6-10.4); Carbon Dioxide 18 mmol/L (22-30); Chloride 93 mmol/L (96-108); Glomerular Filtration Rate 57; Glucose 87 mg/dL (70-105)
[2020-11-13] MEDS ORDERED: DEXTROSE 5% IN WATER 1,000 ML IV SCH ×2 (22:00→22:03)
[2020-11-13] MEDS: NICOTINE 21 MG PATCH TOPICAL SCH (22:10)
[2020-11-14] MEDS: 0.9 % SODIUM CHLORIDE 10 ML SYRINGE IV SCH ×4 (04:55→21:16)
[2020-11-14 07:17] LABS: Basophils # (Auto) 0.06 K/mcL (0.00-0.20); Basophils % (Auto) 0.6 % (0.0-2.0); Eosinophils % (Auto) 1.1 % (0.0-7.0); Hemoglobin 13.5 g/dL (12.0-15.0); Lymphocytes # (Auto) 1.99 K/mcL (1.50-4.80); Lymphocytes % (Auto) 21.3 % (15.0-49.0); Mean Cell Volume 88.2 fL (80.0-100.0); Mean Corpuscular HGB Conc 32.9 g/dL (31.0-36.0); Monocytes # (Auto) 0.81 K/mcL (0.10-0.90); Monocytes % (Auto) 8.7 % (1.0-12.0); Neutrophils % (Auto) 68.3 % (38.0-78.0); Platelet Count 342 K/mcL (140-440); RBC 4.65 M/mcL (4.00-5.20); Red Cell Distribution Width 12.7 % (11.5-14.5); WBC 9.3 K/mcL (4.5-11.0)
[2020-11-14] MEDS: INSULIN LISPRO 1 UNIT/0.01 ML UNIT SQ SCH ×4 (07:22→21:10)
[2020-11-14] MEDS ORDERED: LEVOTHYROXINE 125 MCG TABLET PO SCH (07:30)
[2020-11-14 08:16] LABS: ALT/SGPT 18 U/L (<40); AST/SGOT 35 U/L (<32); Albumin 4.2 gm/dL (3.2-5.2); Albumin/Globulin Ratio 1.4 (1.0-2.3); Alkaline Phosphatase 80 U/L (39-117); Bilirubin,Direct < 0.2 mg/dL (<0.3); Bilirubin,Total 0.4 mg/dL (0.1-1.0); Blood Urea Nitrogen 11 mg/dL (8-23); Calcium 9.7 mg/dL (8.6-10.4); Carbon Dioxide 26 mmol/L (22-30); Chloride 96 mmol/L (96-108); Globulin 3.1 gm/dL (2.2-3.7); Glomerular Filtration Rate 51; Glucose 102 mg/dL (70-105); Lactate Dehydrogenase 211 U/L (135-225); Triglycerides 103 mg/dL (<150); Uric Acid 3.8 mg/dL (2.5-8.0)
[2020-11-14] MEDS ORDERED: amLODIPine 10 MG TABLET PO SCH (09:00)
[2020-11-14] MEDS ORDERED: LOSARTAN 50 MG TABLET PO SCH (09:00)
[2020-11-14] MEDS: DOCUSATE SODIUM 100 MG CAPSULE PO SCH ×2 (10:02→21:09)
[2020-11-14] MEDS: QUEtiapine 100 MG TABLET PO SCH ×3 (10:02→21:08)
[2020-11-14] MEDS: ATORVASTATIN 40 MG TABLET PO SCH (10:02)
[2020-11-14] MEDS: lamoTRIgine 100 MG TABLET PO SCH (10:03)
[2020-11-14] MEDS: ASPIRIN 81 MG TAB.CHEW PO SCH ×2 (10:03→21:09)
[2020-11-14] MEDS: NICOTINE 21 MG PATCH TOPICAL SCH (10:03)
[2020-11-14] MEDS: LINACLOTIDE 290 MCG PO SCH (11:40)
[2020-11-14] MEDS ORDERED: DEXTROSE 5% IN WATER 1,000 ML IV SCH ×2 (11:45→16:30)
[2020-11-14] MEDS ORDERED: LORazepam 1 MG TABLET PO SCH (12:00)
--- NOTE | 2020-11-14 12:49 | Internal Med Progress Note ---
SUBJECTIVE Subjective Patient information: Note initiated : 11/14/20 at 12:43 pm Service Date, if different from initiated Date: [] Patient: Cynthia Kirby 70 y/o F admitted on 11/13/20 for confusion. Chief Complaint: [] Interval history: Ms. Kirby is a 70 year old female with a history of dementia who fell at home and was brought to the ED where she was found to have hyponatremia and urinary retention. 11/14 D5 started to slow correction of hyponatremia, following sodium level closely, leukocytosis resolved. Constitutional Vitals: Vital Signs Temp Pulse Resp BP Pulse Ox 98.7 F 58 L 20 132/82 96 11/14/20 07:53 11/14/20 07:53 11/14/20 07:53 11/14/20 07:53 11/14/20 07:53 Period Temp Pulse Resp BP Sys/Norris Pulse Ox Last 24 Hr 98.6 F-99.1 F 58-100 13-31 75-178/58-125 93-98 Intake and Output 11/13/20 11/14/20 11/14/20 21:59 05:59 13:59 Intake Total 948 1350 Output Total 4650 2125 Balance -4650 -1177 1350 Weight 81.675 kg Intake & Output: Intake & Output 11/13/20 11/14/20 11/14/20 21:59 05:59 13:59 Intake Total 948 1350 Output Total 4650 2125 Balance -4650 -1177 1350 Weight 81.675 kg Intake: IV 1000 Dextrose 5% in Water 1,000 ml @ 1000 100 mls/hr IV .Q10H [facility] Rx#: [id number] Oral 948 350 Output: Urine Catheter Amount 3550 2125 Void Amount 1100 Other: Meal Breakfast Percent of Meal Consumed 100% Feeding Ability Independent Urine Appearance Clear Clear Uretheral (Vieira) Clear Clear Urine Color Pale Pale Uretheral (Vieira) Pale Pale Urine Odor Normal Head Head exam: Present atraumatic and normal inspection Eye Eye exam: Present normal appearance Neck Neck exam: Present full ROM Respiratory Respiratory exam: Present normal respiratory exam Cardiovascular Cardiovascular exam: Present normal rate and rhythm GI/Abdominal GI/Abdominal exam: Present soft Extremities Exam Extremities exam: Present full ROM Neurological Exam Neurological exam: Present alert Psychiatric Psychiatric exam: Absent anxious Skin Skin exam: Present normal color OBJ DATA Labs CBC & Chem 7: 11/14/20 05:41 11/14/20 05:41 Labs: Abnormal Lab Results 11/14/20 11/13/20 11/13/20 05:41 23:25 21:07 WBC Seg Neutrophils % Lymphocytes % POC Sodium Sodium 132 L 130 L 130 L POC Chloride Chloride 93 L Carbon Dioxide 18 L Anion Gap 19.0 H Glucose POC Glucose POC WB Ioniz Calcium AST 35 H TSH 11/13/20 11/13/20 11/13/20 14:40 14:40 13:37 WBC 17.6 H Seg Neutrophils % 84 H Lymphocytes % 13 L POC Sodium 123 L Sodium 121 L POC Chloride 90 L Chloride Carbon Dioxide Anion Gap Glucose POC Glucose 106 H POC WB Ioniz Calcium 1.11 L AST TSH 19.94 H 11/13/20 12:19 WBC Seg Neutrophils % Lymphocytes % POC Sodium Sodium 114 L* POC Chloride Chloride 80 L Carbon Dioxide 19 L Anion Gap Glucose 150 H POC Glucose POC WB Ioniz Calcium AST TSH Meds: Medications Amlodipine Besylate (Norvasc) 10 mg PO DAILY [facility] Last Admin: 11/14/20 10:02 Dose: 10 mg Documented by: Aspirin (Aspirin) 81 mg PO BID [facility] Last Admin: 11/14/20 10:03 Dose: 81 mg Documented by: Atorvastatin Calcium (Lipitor) 40 mg PO QDAY [facility] Last Admin: 11/14/20 10:02 Dose: 40 mg Documented by: Dextrose (Dextrose 50%) 0 ml IV UD PRN PRN Reason: Hypoglycemia Diagnostic Test (Pha) (Accu-Chek) 1 each FS [facility] Last Admin: 11/14/20 12:00 Dose: 1 each Documented by: Docusate Sodium (Colace) 100 mg PO BID [facility] Last Admin: 11/14/20 10:02 Dose: 100 mg Documented by: Glucose (Insta-Glucose) 15 gm PO PRN PRN PRN Reason: Hypoglycemia Dextrose (Dextrose 5% In Water) 1,000 mls @ 150 mls/hr IV .Q6H40M [facility] Last Admin: 11/14/20 12:02 Dose: 150 mls/hr Documented by: Insulin Glargine (Lantus) 5 unit SQ [facility] Last Admin: 11/13/20 21:50 Dose: Not Given Documented by: Insulin Human Lispro (Humalog) 0 unit SQ [facility]; Protocol Last Admin: 11/14/20 12:01 Dose: Not Given Documented by: Lamotrigine (Lamictal) 200 mg PO DAILY [facility] Last Admin: 11/14/20 10:03 Dose: 200 mg Documented by: Levothyroxine Sodium (Synthroid) 125 mcg PO QDAYAC [facility] Last Admin: 11/14/20 07:14 Dose: 125 mcg Documented by: Lorazepam (Ativan) 1 mg PO BID@1200,1800 [facility] Last Admin: 11/14/20 12:02 Dose: 1 mg Documented by: Losartan Potassium (Cozaar) 100 mg PO DAILY [facility] Last Admin: 11/14/20 10:02 Dose: 100 mg Documented by: Nicotine (Nicoderm) 21 mg TOPICAL DAILY@1000 [facility] Last Admin: 11/14/20 10:03 Dose: 21 mg Documented by: Ondansetron HCl (Zofran) 4 mg IV Q6HP PRN PRN Reason: Nausea And Vomiting Linaclotide [Linzess (] 290 Mcg)) 1 dose PO QDAY [facility] Last Admin: 11/14/20 11:40 Dose: Not Given Documented by: Quetiapine Fumarate (Seroquel) 100 mg PO BID@0900,1500 [facility] Last Admin: 11/14/20 10:02 Dose: 100 mg Documented by: Quetiapine Fumarate (Seroquel) 300 mg PO [facility] Last Admin: 11/13/20 21:49 Dose: 300 mg Documented by: Senna (Senokot) 2 tab PO [facility] Last Admin: 11/13/20 21:49 Dose: Not Given Documented by: Sodium Chloride (Saline Flush) 10 ml IV Q8 [facility] Last Admin: 11/14/20 04:57 Dose: Not Given Documented by: Trazodone HCl (Desyrel) 50 mg PO HSP PRN PRN Reason: Insomnia Last Admin: 11/13/20 21:50 Dose: 50 mg Documented by: A/P Narrative A/P Narrative: ASSESSMENT: 70 year old female with dementia admitted for hyponatremia likely secondary to psychogenic polydipsia. Found to have urinary retention in the ED, vieira placed before admission. #Acute on chronic hyponatremia-likely due to psychogenic polydipsia #Urinary retention-s/p ED vieira catheter placement #Leukocytosis-likely stress reaction #Dementia with behavioral disturbances #Hypothyroidism-poorly controlled (TSH 19.4) #Hypertension #Diabetes mellitus type 2 PLAN -D5 IVF, follow sodium closely/try to avoid overcorrection >8 mEq/24 hrs -fluid restriction -follow CBC and chemistry panel -Lantus and SSI -Home medications except Metformin -increased levothyroxine to 150 mcg per day -remove vieira catheter when able-possibly tomorrow -multiple unsuccessful attempts to contact family by phone for goals of care discussion -DVT prophylaxis: Lovenox SQ Time Spent With Patient Time: Total time spent is greater than 50% in coordination of care (as documented) at patient's floor/unit and/or counseling patient: QUALITY VTE Deep Vein Thrombosis/Pulmonary Embolism Present on Admission: No
[2020-11-14] MEDS ORDERED: DEXTROSE 5%-NS 1,000 ML IV SCH (16:30)
[2020-11-14] MEDS ORDERED: MELATONIN 3 MG TABLET PO PRN (16:43)
[2020-11-14] MEDS ORDERED: QUEtiapine 100 MG TABLET PO SCH (21:00)
[2020-11-14] MEDS ORDERED: traZODone HCL 100 MG TABLET PO SCH (21:00)
[2020-11-14] MEDS: INSULIN GLARGINE, HUMAN 1 UNIT/0.01 ML SQ SCH (21:09)
[2020-11-14] MEDS: SENNOSIDES 1 TABLET PO SCH (21:09)
[2020-11-14] MEDS: DEXTROSE 5% IN WATER 1,000 ML IV SCH (21:41)
[2020-11-15] MEDS: 0.9 % SODIUM CHLORIDE 10 ML SYRINGE IV SCH ×3 (04:30→20:36)
[2020-11-15] MEDS: DEXTROSE 5% IN WATER 1,000 ML IV SCH (05:21)
[2020-11-15 06:43] LABS: Basophils # (Auto) 0.03 K/mcL (0.00-0.20); Basophils % (Auto) 0.3 % (0.0-2.0); Eosinophils # (Auto) 0.22 K/mcL (0.00-0.70); Eosinophils % (Auto) 1.9 % (0.0-7.0); Hematocrit 39.8 % (36.0-48.0); Hemoglobin 13.1 g/dL (12.0-15.0); Lymphocytes # (Auto) 1.72 K/mcL (1.50-4.80); Lymphocytes % (Auto) 14.6 % (15.0-49.0); Mean Corpuscular HGB Conc 32.9 g/dL (31.0-36.0); Mean Platelet Volume 8.8 fL (7.4-10.4); Monocytes # (Auto) 0.84 K/mcL (0.10-0.90); Monocytes % (Auto) 7.1 % (1.0-12.0); Neutrophils % (Auto) 76.1 % (38.0-78.0); Platelet Count 288 K/mcL (140-440); RBC 4.47 M/mcL (4.00-5.20); Red Cell Distribution Width 13.2 % (11.5-14.5); WBC 11.8 K/mcL (4.5-11.0)
[2020-11-15 07:19] LABS: ALT/SGPT 16 U/L (<40); AST/SGOT 20 U/L (<32); Albumin 3.9 gm/dL (3.2-5.2); Albumin/Globulin Ratio 1.3 (1.0-2.3); Alkaline Phosphatase 73 U/L (39-117); Bilirubin,Direct < 0.2 mg/dL (<0.3); Bilirubin,Total 0.3 mg/dL (0.1-1.0); Blood Urea Nitrogen 14 mg/dL (8-23); Calcium 9.2 mg/dL (8.6-10.4); Carbon Dioxide 24 mmol/L (22-30); Chloride 96 mmol/L (96-108); Globulin 2.9 gm/dL (2.2-3.7); Glomerular Filtration Rate 46; Glucose 106 mg/dL (70-105); Lactate Dehydrogenase 153 U/L (135-225); Phosphorous 2.7 mg/dL (2.5-4.5); Triglycerides 107 mg/dL (<150); Uric Acid 4.6 mg/dL (2.5-8.0)
[2020-11-15] MEDS ORDERED: LACTULOSE 20 GM/30 ML ORAL.SOL PO PRN (07:32)
[2020-11-15] MEDS: INSULIN LISPRO 1 UNIT/0.01 ML UNIT SQ SCH ×4 (08:41→20:42)
[2020-11-15] MEDS: LEVOTHYROXINE 125 MCG TABLET PO SCH (08:56)
[2020-11-15] MEDS: DOCUSATE SODIUM 100 MG CAPSULE PO SCH ×2 (08:56→20:36)
[2020-11-15] MEDS: ASPIRIN 81 MG TAB.CHEW PO SCH ×2 (08:56→20:36)
[2020-11-15] MEDS: LACTULOSE 20 GM/30 ML ORAL.SOL PO SCH ×3 (08:57→20:36)
[2020-11-15] MEDS: ATORVASTATIN 40 MG TABLET PO SCH (08:59)
[2020-11-15] MEDS: LORazepam 1 MG TABLET PO PRN ×2 (08:59→20:46)
[2020-11-15] MEDS: lamoTRIgine 100 MG TABLET PO SCH (08:59)
[2020-11-15] MEDS: ENOXAPARIN 40 MG/0.4 ML SYRINGE SQ SCH (09:00)
[2020-11-15] MEDS: LINACLOTIDE 290 MCG PO SCH (09:00)
[2020-11-15] MEDS: QUEtiapine 100 MG TABLET PO SCH ×3 (09:00→20:36)
[2020-11-15] MEDS: NICOTINE 21 MG PATCH TOPICAL SCH (09:04)
[2020-11-15] MEDS ORDERED: DIAZEPAM 5 MG TABLET PO ONE (12:41)
--- NOTE | 2020-11-15 16:39 | Internal Med Progress Note ---
SUBJECTIVE Subjective Patient information: Note initiated : 11/15/20 at 4:21 pm Service Date, if different from initiated Date: [] Patient: Cynthia Kirby 70 y/o F admitted on 11/13/20 for confusion. Chief Complaint: [] Interval history: Ms. Kirby is a 70 year old female with a history of hypertension, hyperlipidemia, DM II, hypothyroidism, anxiety, dementia who fell at home and was brought to the ED where she was found to have severe hyponatremi a and urinary retention. The patient was unable to provide a coherent history on the day of admission. Per report she lives with her son who has struggled to care for her. He has been trying to get her into a SNF but she has been resistant. He is currently working on emergency guardianship. In the ED the patient's sodium level in the ED was initially 114. Family reports that the patient drinks fluids excessively, suspect psychogenic polydipsia. 11/14 D5 started to slow correction of hyponatremia, following sodium level closely, leukocytosis improved-no signs of infection. 11/15 Hypotensive overnight after starting BP meds yesterday, discontinued norvasc and losartan. Sodium down trending today-discontinued D5 IV. Remove vieira catheter. Lactulose for constipation. Constitutional Vitals: Vital Signs Temp Pulse Resp BP Pulse Ox 98.9 F 93 H 20 124/87 96 11/15/20 12:00 11/15/20 12:00 11/15/20 12:00 11/15/20 12:00 11/15/20 12:00 Period Temp Pulse Resp BP Sys/Norris Pulse Ox Last 24 Hr 97.7 F-98.9 F 55-93 16-20 89-141/58-99 95-97 Intake and Output 11/15/20 11/15/20 11/15/20 05:59 13:59 21:59 Intake Total 1480 1070 100 Output Total 725 2700 Balance 755 -1630 100 Intake & Output: Intake & Output 11/15/20 11/15/20 11/15/20 05:59 13:59 21:59 Intake Total 1480 1070 100 Output Total 725 2700 Balance 755 -1630 100 Intake: IV 1000 Dextrose 5% in Water 1,000 ml @ 1000 150 mls/hr IV .Q6H40M [facility] Rx#: [id number] Oral 480 1070 100 Output: Urine Catheter Amount 996 3010 Other: Meal Lunch Percent of Meal Consumed 75% Feeding Ability Assist with Tray Set Up Urine Appearance Clear Clear Uretheral (Vieira) Clear Urine Color Bright Yellow Straw Uretheral (Vieira) Bright Yellow Urine Odor Normal Additional findings Additional findings: Head: Atraumatic, normal inspection. Eyes: normal appearance, no scleral icterus. Neck: full ROM Respiratory: no respiratory distress. Cardiovascular: normal rate and rhythm, S1, S2. GI/Abdominal: soft, nontender, no guarding. Extremities: full range of motion, nontender. Neurological: CN II-XII intact, intact motor, intact sensation. Psychiatric: anxious Skin: warm, normal color OBJ DATA Labs CBC & Chem 7: 11/15/20 06:06 11/15/20 10:13 Labs: Abnormal Lab Results 11/15/20 11/15/20 11/15/20 10:13 06:06 06:06 WBC 11.8 H Lymph % (Auto) 14.6 L Seg Neutrophils % Lymphocytes % Absolute Neutrophils 8.95 H POC Sodium Sodium 132 L 129 L POC Chloride Chloride Carbon Dioxide Anion Gap Creatinine 1.2 H Glucose 106 H POC Glucose POC WB Ioniz Calcium AST TSH 11/15/20 11/14/20 11/14/20 02:53 22:18 05:41 WBC Lymph % (Auto) Seg Neutrophils % Lymphocytes % Absolute Neutrophils POC Sodium Sodium 125 L 130 L 132 L POC Chloride Chloride Carbon Dioxide Anion Gap Creatinine Glucose POC Glucose POC WB Ioniz Calcium AST 35 H TSH 11/13/20 11/13/20 11/13/20 23:25 21:07 14:40 WBC Lymph % (Auto) Seg Neutrophils % Lymphocytes % Absolute Neutrophils POC Sodium Sodium 130 L 130 L 121 L POC Chloride Chloride 93 L Carbon Dioxide 18 L Anion Gap 19.0 H Creatinine Glucose POC Glucose POC WB Ioniz Calcium AST TSH 11/13/20 11/13/20 11/13/20 14:40 13:37 12:19 WBC 17.6 H Lymph % (Auto) Seg Neutrophils % 84 H Lymphocytes % 13 L Absolute Neutrophils POC Sodium 123 L Sodium 114 L* POC Chloride 90 L Chloride 80 L Carbon Dioxide 19 L Anion Gap Creatinine Glucose 150 H POC Glucose 106 H POC WB Ioniz Calcium 1.11 L AST TSH 19.94 H Meds: Medications Aspirin (Aspirin) 81 mg PO BID YG Last Admin: 11/15/20 08:56 Dose: 81 mg Documented by: Atorvastatin Calcium (Lipitor) 40 mg PO QDAY [facility] Last Admin: 11/15/20 08:59 Dose: 40 mg Documented by: Dextrose (Dextrose 50%) 0 ml IV UD PRN PRN Reason: Hypoglycemia Diagnostic Test (Pha) (Accu-Chek) 1 each FS [facility] Last Admin: 11/15/20 13:19 Dose: 1 each Documented by: Docusate Sodium (Colace) 100 mg PO BID [facility] Last Admin: 11/15/20 08:56 Dose: 100 mg Documented by: Enoxaparin Sodium (Lovenox) 40 mg SQ DAILY [facility] Last Admin: 11/15/20 09:00 Dose: 40 mg Documented by: Glucose (Insta-Glucose) 15 gm PO PRN PRN PRN Reason: Hypoglycemia Insulin Glargine (Lantus) 5 unit SQ [facility] Last Admin: 11/14/20 21:09 Dose: 5 units Documented by: Insulin Human Lispro (Humalog) 0 unit SQ [facility]; Protocol Last Admin: 11/15/20 13:19 Dose: Not Given Documented by: Lactulose (Cephulac) 20 gm PO TID [facility] Stop: 11/15/20 21:01 Last Admin: 11/15/20 14:36 Dose: 20 gm Documented by: Lactulose (Cephulac) 10 gm PO DAILYP PRN PRN Reason: Constipation Lamotrigine (Lamictal) 200 mg PO DAILY [facility] Last Admin: 11/15/20 08:59 Dose: 200 mg Documented by: Levothyroxine Sodium (Synthroid) 150 mcg PO QDAYAC [facility] Last Admin: 11/15/20 08:56 Dose: 150 mcg Documented by: Lorazepam (Ativan) 1 mg PO BIDP PRN PRN Reason: Anxiety Last Admin: 11/15/20 08:59 Dose: 1 mg Documented by: Melatonin (Melatonin 3mg Tablet) 3 mg PO HSP PRN PRN Reason: Insomnia Nicotine (Nicoderm) 21 mg TOPICAL DAILY@1000 [facility] Last Admin: 11/15/20 09:04 Dose: 21 mg Documented by: Ondansetron HCl (Zofran) 4 mg IV Q6HP PRN PRN Reason: Nausea And Vomiting Linaclotide [Linzess (] 290 Mcg)) 1 dose PO QDAY [facility] Last Admin: 11/15/20 09:00 Dose: Not Given Documented by: Quetiapine Fumarate (Seroquel) 100 mg PO BID@0900,1500 [facility] Last Admin: 11/15/20 14:36 Dose: 100 mg Documented by: Quetiapine Fumarate (Seroquel) 300 mg PO [facility] Last Admin: 11/14/20 21:08 Dose: 300 mg Documented by: Senna (Senokot) 2 tab PO [facility] Last Admin: 11/14/20 21:09 Dose: 2 tab Documented by: Sodium Chloride (Saline Flush) 10 ml IV Q8 [facility] Last Admin: 11/15/20 14:37 Dose: 10 ml Documented by: Trazodone HCl (Desyrel) 50 mg PO HSP PRN PRN Reason: Insomnia Last Admin: 11/13/20 21:50 Dose: 50 mg Documented by: A/P Narrative A/P Narrative: ASSESSMENT: 70 year old female with hypertension, hyperlipidemia, DM II, hypothyroidism, anxiety, bipolar disorder, dementia, constipation admitted for hyponatremia secondary to psychogenic polydipsia. Found to have urinary retention in the ED, vieira placed. The patient received IV fluid in the ED, started on fluid restriction after admission. She required D5 IV to slow correction of hyponatremia-discontinued when goal achieved. The vieira catheter was removed. The patient had leukocytosis on admission-likely stress reaction as this improved spontaneously. TSH was elevated at 19.4, administration was reviewed with the patient and felt to be appropriate therefore levothyroxine was increased from 125 mcg to 150 mcg (follow up TSH in 6-8 weeks). The patient developed hypotension after norvasc and losartan were resumed therefore they were discontinued. This raised the question of whether of not the patient is actually taking her medications as prescribed. Lactulose was started for constipation. 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 #Urinary retention-s/p vieira then removed 11/15 #Leukocytosis-improved likely stress reaction #Dementia #Bipolar disorder #Anxiety #Hypothyroidism-poorly controlled (TSH 19.4) #Hypertension #Diabetes mellitus type 2 PLAN -fluid restriction -discontinue D5 IV for slowing sodium correction -remove vieira-bladder scan Qshift -follow CBC and chemistry panel -SSI, discontinued lantus now that D5 discontinued, holding -home medications including seroquel, trazodone HS prn, increased levothyroxine to 150 mcg per day, ativan changed to prn -DVT prophylaxis: Lovenox SQ -Dispo: likely SNF, pending guardianship process-CM following Time Spent With Patient Time: Total time spent is greater than 50% in coordination of care (as documented) at patient's floor/unit and/or counseling patient: QUALITY VTE Deep Vein Thrombosis/Pulmonary Embolism Present on Admission: No
[2020-11-15] MEDS: SENNOSIDES 1 TABLET PO SCH (20:35)
[2020-11-16] MEDS: 0.9 % SODIUM CHLORIDE 10 ML SYRINGE IV SCH (04:01)
[2020-11-16 06:55] LABS: Basophils # (Auto) 0.04 K/mcL (0.00-0.20); Basophils % (Auto) 0.6 % (0.0-2.0); Eosinophils # (Auto) 0.23 K/mcL (0.00-0.70); Eosinophils % (Auto) 3.3 % (0.0-7.0); Hematocrit 41.3 % (36.0-48.0); Hemoglobin 13.5 g/dL (12.0-15.0); Lymphocytes # (Auto) 2.21 K/mcL (1.50-4.80); Lymphocytes % (Auto) 31.7 % (15.0-49.0); Mean Corpuscular HGB Conc 32.7 g/dL (31.0-36.0); Mean Platelet Volume 9.2 fL (7.4-10.4); Monocytes # (Auto) 0.55 K/mcL (0.10-0.90); Monocytes % (Auto) 7.9 % (1.0-12.0); Neutrophils % (Auto) 56.5 % (38.0-78.0); Platelet Count 327 K/mcL (140-440); RBC 4.59 M/mcL (4.00-5.20); Red Cell Distribution Width 13.2 % (11.5-14.5)
[2020-11-16 07:15] LABS: ALT/SGPT 19 U/L (<40); AST/SGOT 20 U/L (<32); Albumin 4.1 gm/dL (3.2-5.2); Albumin/Globulin Ratio 1.3 (1.0-2.3); Alkaline Phosphatase 76 U/L (39-117); Bilirubin,Direct < 0.2 mg/dL (<0.3); Bilirubin,Total 0.3 mg/dL (0.1-1.0); Blood Urea Nitrogen 13 mg/dL (8-23); Calcium 9.4 mg/dL (8.6-10.4); Carbon Dioxide 26 mmol/L (22-30); Chloride 100 mmol/L (96-108); Globulin 3.1 gm/dL (2.2-3.7); Glomerular Filtration Rate 46; Glucose 96 mg/dL (70-105); Lactate Dehydrogenase 183 U/L (135-225); Phosphorous 2.7 mg/dL (2.5-4.5); Triglycerides 118 mg/dL (<150); Uric Acid 5.2 mg/dL (2.5-8.0)
[2020-11-16] MEDS: INSULIN LISPRO 1 UNIT/0.01 ML UNIT SQ SCH ×2 (07:50→11:58)
[2020-11-16] MEDS: NICOTINE 21 MG PATCH TOPICAL SCH (08:43)
[2020-11-16] MEDS: ENOXAPARIN 40 MG/0.4 ML SYRINGE SQ SCH (08:43)
[2020-11-16] MEDS: lamoTRIgine 100 MG TABLET PO SCH (08:44)
[2020-11-16] MEDS: QUEtiapine 100 MG TABLET PO SCH (08:44)
[2020-11-16] MEDS: LEVOTHYROXINE 125 MCG TABLET PO SCH (08:44)
[2020-11-16] MEDS: ATORVASTATIN 40 MG TABLET PO SCH (08:44)
[2020-11-16] MEDS: ASPIRIN 81 MG TAB.CHEW PO SCH (08:44)
[2020-11-16] MEDS: DOCUSATE SODIUM 100 MG CAPSULE PO SCH (08:45)
[2020-11-16] MEDS: LINACLOTIDE 290 MCG PO SCH (08:47)
[2020-11-16] MEDS ORDERED: amLODIPine 5 MG TABLET PO SCH (09:00)
--- NOTE | 2020-11-16 10:30 | Discharge Summary ---
Discharge Provider Provider Patient information: Note initiated : 11/16/20 at 10:26 am Service Date, if different from initiated Date: [] Patient: Cynthia Kirby 70 y/o F admitted on 11/13/20 for confusion. Chief Complaint: [] Date of admission: 11/13/20 19:36 Discharge date: 11/16/20 Primary care physician: Hailey Denis Consults: 11/13/20 Consult to Physician [CONS] Stat Comment: Consulting Provider: Jh Rodriguez Reason For Exam: Physician to Consult Discharge Meds Discharge Medications Home Medications lamotrigine 200 mg PO DAILY 06/09/18 [History Confirmed 11/13/20 Last Taken 02/19/20 09:00] lorazepam 1 mg PO BID@1200,1800 06/09/18 [History Confirmed 11/13/20 Last Taken 02/19/20 12:00] quetiapine 300 mg PO HS 06/10/18 [History Confirmed 11/13/20 Last Taken 02/18/20 21:00] amlodipine 10 mg PO DAILY 05/25/19 [History Confirmed 11/13/20 Last Taken 02/19/20 09:00] losartan 100 mg PO DAILY #30 tab 06/22/19 [Rx Confirmed 11/13/20 Last Taken 02/19/20 09:00] Linzess 290 mcg PO QDAY 04/25/20 [History Confirmed 11/13/20 Last Taken Unknown] aspirin [Adult Low Dose Aspirin] 81 mg PO BID 04/25/20 [History Confirmed 11/13/20 Last Taken Unknown] atorvastatin 40 mg PO QDAY 04/25/20 [History Confirmed 11/13/20 Last Taken Unknown] metformin 1,000 mg PO QDAY 11/13/20 [History Confirmed 11/13/20 Last Taken Unknown] quetiapine 100 mg PO BID 11/13/20 [History Confirmed 11/13/20 Last Taken Unknown] trazodone 50 mg PO QHS PRN 11/13/20 [History Confirmed 11/13/20 Last Taken Unknown] lactulose 20 ml PO DAILYP PRN #1200 ml 11/16/20 [Rx Last Taken Unknown] levothyroxine 150 mcg PO QDAYAC #60 tab 11/16/20 [Rx Last Taken Unknown] nicotine 21 mg TOPICAL DAILY@1000 #28 each 11/16/20 [Rx Last Taken Unknown] COURSE Hospital Course Hospital course: 70 year old female with hypertension, hyperlipidemia, DM II, hypothyroidism, anxiety, bipolar disorder, dementia, constipation admitted for hyponatremia secondary to psychogenic polydipsia. Found to have urinary retention in the ED, vieira placed. The patient received IV fluid in the ED, started on fluid restriction after admission. She required D5 IV to slow correction of hyponatremia-discontinued when goal achieved. The vieira catheter was removed. The patient had leukocytosis on admission-likely stress reaction as this improved spontaneously. TSH was elevated at 19.4, administration was reviewed with the patient and felt to be appropriate therefore levothyroxine was increased from 125 mcg to 150 mcg (follow up TSH in 6-8 weeks). The patient developed hypotension after norvasc and losartan were resumed therefore they were held then gradually resumed. Lactulose was started for constipation, continued at discharge. The patient was able to void after the vieira was bell tawnya, followed with bladder scans. She was discharged to home with family. 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 #Urinary retention-s/p vieira then removed 11/15 #Leukocytosis-improved likely stress reaction #Dementia #Bipolar disorder #Anxiety #Hypothyroidism-poorly controlled (TSH 19.4) #Hypertension #Diabetes mellitus type 2 PLAN -fluid restriction -discontinue D5 IV for slowing sodium correction -remove vieira-bladder scan Qshift -follow CBC and chemistry panel -SSI, discontinued lantus now that D5 discontinued, holding -home medications including seroquel, trazodone HS prn, increased levothyroxine to 150 mcg per day, ativan changed to prn -DVT prophylaxis: Lovenox SQ -Dispo: likely SNF, pending guardianship process- following Discharge diagnosis: Hyponatremia Time Spent with Patient Time attestation: Total time spent providing and/or coordinating discharge services: 35 EXAM Constitutional Vitals: Temp Pulse Resp BP Pulse Ox 97.7 F 74 18 160/84 98 11/16/20 08:00 11/16/20 08:00 11/16/20 08:00 11/16/20 08:00 11/16/20 08:00 Additional findings Additional findings: Head: Atraumatic, normal inspection. Eyes: normal appearance, no scleral icterus. Neck: full ROM Respiratory: no respiratory distress. Cardiovascular: normal rate and rhythm, S1, S2. GI/Abdominal: soft, nontender, no guarding. Extremities: full range of motion, nontender. Neurological: CN II-XII intact, intact motor, intact sensation. Psychiatric: impaired cognition, anxious. Skin: warm, normal color Discharge Data Data Completed and Pending Labs on day of discharge: Labs from last 24 hours 11/16/20 11/16/20 11/16/20 04:02 04:02 00:12 WBC 7.0 RBC 4.59 Hgb 13.5 Hct 41.3 MCV 90.0 MCH 29.4 MCHC 32.7 RDW 13.2 Plt Count 327 MPV 9.2 Neut % (Auto) 56.5 Lymph % (Auto) 31.7 [place] % (Auto) 7.9 Eos % (Auto) 3.3 Baso % (Auto) 0.6 Lymph # (Auto) 2.21 [place] # (Auto) 0.55 Eos # (Auto) 0.23 Baso # (Auto) 0.04 Absolute Neutrophils 3.95 Sodium 136 134 Potassium 3.4 Chloride 100 Carbon Dioxide 26 Anion Gap 10.0 BUN 13 Creatinine 1.2 H GFR Calculation 46 Glucose 96 Uric Acid 5.2 Calcium 9.4 Phosphorus 2.7 Magnesium 2.4 Total Bilirubin 0.3 Direct Bilirubin < 0.2 GGT 27 AST 20 ALT 19 Alkaline Phosphatase 76 Lactate Dehydrogenase 183 Total Protein 7.2 Albumin 4.1 Globulin 3.1 Albumin/Globulin Ratio 1.3 Triglycerides 118 11/15/20 11/15/20 11/15/20 20:01 15:57 10:13 WBC RBC Hgb Hct MCV MCH MCHC RDW Plt Count MPV Neut % (Auto) Lymph % (Auto) [place] % (Auto) Eos % (Auto) Baso % (Auto) Lymph # (Auto) [place] # (Auto) Eos # (Auto) Baso # (Auto) Absolute Neutrophils Sodium 132 L 134 132 L Potassium Chloride Carbon Dioxide Anion Gap BUN Creatinine GFR Calculation Glucose Uric Acid Calcium Phosphorus Magnesium Total Bilirubin Direct Bilirubin GGT AST ALT Alkaline Phosphatase Lactate Dehydrogenase Total Protein Albumin Globulin Albumin/Globulin Ratio Triglycerides Preliminary micro results at discharge 11/13/20 12:30 Blood Culture - Preliminary Blood 11/13/20 12:19 Blood Culture - Preliminary Blood Discharge Plan Patient/Caregiver Discharge Instructions Activity: increase activity as tolerated Diet: Regular Diet Prescriptions: New levothyroxine 125 mcg Tablet 150 mcg PO QDAYAC Qty: 60 RF: 4 nicotine 21 mg/24 hr Patch 24 Hour 21 mg topical DAILY@1000 Qty: 28 RF: 0 lactulose 20 gram/30 mL Solution 20 ml PO DAILYP PRN (Reason: Constipation) Qty: 1200 RF: 0 Continued lamotrigine 200 MG tablet 200 mg PO DAILY RF: 0 lorazepam 1 MG tablet 1 mg PO BID@1200,1800 RF: 0 quetiapine 100 MG tablet 300 mg PO HS RF: 0 amlodipine 10 MG tablet 10 mg PO DAILY RF: 0 losartan 100 MG tablet 100 mg PO DAILY Qty: 30 RF: 1 atorvastatin 40 mg Tablet 40 mg PO QDAY RF: 0 Linzess 290 mcg Capsule 290 mcg PO QDAY RF: 0 aspirin [Adult Low Dose Aspirin] 81 mg Tablet,Delayed Release (Dr/Ec) 81 mg PO BID RF: 0 metformin 500 mg Tablet 1,000 mg PO QDAY RF: 0 trazodone 50 mg Tablet 50 mg PO QHS PRN (Reason: Insomnia) RF: 0 quetiapine 100 mg Tablet 100 mg PO BID RF: 0 Discontinued levothyroxine 125 mcg Tablet 125 mcg PO QDAYAC RF: 0 Follow Up Plan Patient Disposition: Home, Self-Care Prognosis: Fair Discharge Orders: Discharge Order (Routine); Ordered 11/16/20 Ordered By: Jh MALDONADO VTE Deep Vein Thrombosis/Pulmonary Embolism Present on Admission: No
== END 2020-11-16 12:30 | disposition home or self-care (01) | DRG 641 ==
LOC: ED 11:30 → MEDSUR 19:36
PROVIDERS: ADMIT Internal Medicine; ATTEND Internal Medicine

== ENCOUNTER 2021-01-02 09:00 | Inpatient (IN) ==
[2021-01-02 09:29] LABS: POC Blood Urea Nitrogen 10 mg/dL (6-20); POC CO2 22 mmol/L (22-30); POC Calcium, Ionized 1.14 mmEq/L (1.16-1.32); POC Chloride 84 mEq/L (96-108); POC Creatinine 0.8 mg/dL (0.6-1.2); POC Glucose, Random 140 mg/dL (70-105); POC Hematocrit 42 % (36-48); POC Sodium 117 mEq/L (133-145)
[2021-01-02] MEDS: 0.9 % SODIUM CHLORIDE 250 ML IV SCH ×3 (09:57→13:22)
[2021-01-02] MEDS ORDERED: LORazepam 2 MG/ML VIAL IV ONE (10:34)
[2021-01-02 10:35] LABS: Appearance,Urine Clear (Clear); Bilirubin,Urine Negative (Negative); Color,Urine Light yellow; Culture Indicated,Urine No; Glucose,Urine (UA) Negative (Negative); Ketones,Urine Negative (Negative); Leukocyte Esterase,Urine Negative /ug (Negative); Mucus,Urine FEW /hpf; Nitrate,Urine Negative (Negative); PH,Urine 6.5 (5.0-9.0); Protein,Urine Negative (Negative); Specific Gravity,Urine 1.015 (1.000-1.035); Urine Blood Trace-intact ery/mcL (Negative); Urine RBC < 1 /hpf (0-3); Urine Squamous Epithelial Cell 0 /hpf (0-4); Urine WBC < 1 /hpf (0-4); Urobilinogen,Urine Normal
[2021-01-02 11:16] LABS: Basophils # (Auto) 0.05 K/mcL (0.00-0.20); Basophils % (Auto) 0.4 % (0.0-2.0); Eosinophils # (Auto) 0.07 K/mcL (0.00-0.70); Eosinophils % (Auto) 0.6 % (0.0-7.0); Hematocrit 36.9 % (36.0-48.0); Hemoglobin 12.6 g/dL (12.0-15.0); Lymphocytes # (Auto) 1.87 K/mcL (1.50-4.80); Lymphocytes % (Auto) 16.6 % (15.0-49.0); Mean Corpuscular HGB Conc 34.1 g/dL (31.0-36.0); Mean Platelet Volume 9.1 fL (7.4-10.4); Monocytes # (Auto) 0.71 K/mcL (0.10-0.90); Monocytes % (Auto) 6.3 % (1.0-12.0); Neutrophils % (Auto) 76.1 % (38.0-78.0); Platelet Count 325 K/mcL (140-440); RBC 4.34 M/mcL (4.00-5.20); Red Cell Distribution Width 12.6 % (11.5-14.5); WBC 11.3 K/mcL (4.5-11.0)
[2021-01-02 11:37] LABS: ALT/SGPT 14 U/L (<40); AST/SGOT 12 U/L (<32); Albumin 4.1 gm/dL (3.2-5.2); Albumin/Globulin Ratio 1.3 (1.0-2.3); Alkaline Phosphatase 86 U/L (39-117); Bilirubin,Total 0.4 mg/dL (0.1-1.0); Blood Urea Nitrogen 9 mg/dL (8-23); Calcium 9.2 mg/dL (8.6-10.4); Carbon Dioxide 23 mmol/L (22-30); Chloride 84 mmol/L (96-108); Globulin 3.2 gm/dL (2.2-3.7); Glomerular Filtration Rate 74; Glucose 107 mg/dL (70-105)
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
[2021-01-02 12:24] LABS: Thyroid Stimulating Hormone 25.35 uIU/mL (0.27-5.01)
--- NOTE | 2021-01-02 12:37 | Emergency Department Note ---
Altered Mental Status HPI General Chief Complaint: Altered Mental Status Stated Complaint: confusion Time Seen by Provider: 01/02/21 09:06 Source: patient Mode of arrival: EMS Limitations: no limitations History of Present Illness HPI Narrative: Narrative: Presents to room T6 for evaluation of altered level of consciousness with nausea and thirst. It is reported by EMS that she is called EMS multiple times throughout the night. The patient has a history of psychogenic polydipsia with associated hyponatremia. The patient was seen by myself 5 days ago. At that time she had a brief episode of altered level of consciousness which was felt to be transient. At that time the patient was felt competent to refuse care and refused all diagnostic studies. Review of the medical record notes the patient has been seen multiple times for similar presentations. Further history is limited as the patient is somewhat confused and unable to elicit why she called EMS or what symptoms she is having other than she is thirsty. Related Data Home Medications Medication Instructions Recorded Confirmed lamotrigine 200 mg PO DAILY 06/09/18 11/13/20 lorazepam 1 mg PO BID@1200,1800 06/09/18 11/13/20 quetiapine 300 mg PO HS 06/10/18 11/13/20 amlodipine 10 mg PO DAILY 05/25/19 11/13/20 Linzess 290 mcg PO QDAY 04/25/20 11/13/20 aspirin [Adult Low Dose Aspirin] 81 mg PO BID 04/25/20 11/13/20 atorvastatin 40 mg PO QDAY 04/25/20 11/13/20 metformin 1,000 mg PO QDAY 11/13/20 11/13/20 quetiapine 100 mg PO BID 11/13/20 11/13/20 trazodone 50 mg PO QHS PRN 11/13/20 11/13/20 Previous Rx's Medication Instructions Recorded losartan 100 mg PO DAILY #30 tab 06/22/19 lactulose 20 ml PO DAILYP PRN #1200 ml 11/16/20 levothyroxine [Synthroid] 150 mcg PO QDAY #60 tab 11/16/20 nicotine 21 mg TOPICAL DAILY@1000 #28 each 11/16/20 Allergies Allergy/AdvReac Type Severity Reaction Status Date / Time Penicillins Allergy Severe Swelling Verified 11/13/20 21:13 of Throat Review of Systems ROS ROS Narrative: Narrative: Limitations: ROS unobtainable due to patients medical condition PFSH Narrative Patient History Narrative: Narrative: Medical/Surgical/Family History All Active Problems (Updated 01/02/21 @ 12:45 by Brian Ferguson MD) Suicidal ideation (Acute) Acute anxiety (Acute) SASKIA (generalized anxiety disorder) (Acute) Manipulative behavior (Acute) AMS (altered mental status) (Acute) Psychogenic polydipsia (Acute) Acute hyponatremia (Acute) Acute urinary retention (Acute) Leukocytosis (Acute) Altered level of consciousness (Acute) Acute delirium (Acute) Osteoarthritis of left knee (Acute) Hip arthritis (Acute) Hepatitis (Acute) Dizziness (Acute) Polydipsia (Chronic) Peptic ulcer disease (Chronic) Hypokalemia (Chronic) Hyponatremia (Chronic) Anxiety (Chronic) Acute anxiety (Chronic) Panic disorder (Chronic) Altered mental status (Chronic) Psychogenic polydipsia (Chronic) Hyponatremia (Chronic) Hypochloremia (Chronic) Cigarette smoker (Chronic) Diabetes mellitus type 2, controlled (Chronic) Alzheimer's disease (Chronic) Bipolar disorder (Chronic) Elevated serum GGT level (Chronic) Hypertension, essential (Chronic) Hyperlipidemia (Chronic) Hypothyroidism (acquired) (Chronic) Obesity (Chronic) Constipation (Chronic) Vitamin D deficiency (Chronic) Osteoporosis (Chronic) Osteopenia (Chronic) Anxiety about health (Chronic) Cognitive dysfunction (Chronic) Depression (Chronic) Medical History (Updated 01/02/21 @ 12:45 by Brian Ferguson MD) Abdominal pain Acute anxiety Acute anxiety Acute cystitis with hematuria Acute dehydration Altered mental status Alzheimer's disease Ankle fracture Anxiety Anxiety Anxiety about health Bimalleolar fracture of right ankle Bipolar disorder Cigarette smoker Cognitive dysfunction Constipation 05/27/16; 05/16/18; Cough Depression Diabetes mellitus type 2, controlled Elevated lactic acid level Elevated serum GGT level Encephalopathy acute Encounter for medication refill Episode of generalized weakness Flea bite Foot pain, right Hyperlipidemia Hypertension, essential Hypochloremia Hypokalemia Hypokalemia Hyponatremia Hyponatremia Hyponatremia with excess extracellular fluid volume Hypothyroidism (acquired) Nausea & vomiting Obesity Osteopenia Osteoporosis Panic disorder Peptic ulcer disease Polydipsia Psychogenic polydipsia Rectal pain Schwannoma (02/06/12) Ear Seborrhea Sepsis Urinary tract infection UTI (urinary tract infection) Vitamin D deficiency Yeast infection Surgical History H/O colonoscopy (12/15/17) 11/15/14, 08/23/2015 History of appendectomy (~10/11/98) S/P ORIF (open reduction internal fixation) fracture Right trimalleolur ORIF with syndesmosis fixation, due to fracture S/P LIZETH-BSO (~10/11/98) Family History Mother Arthritis Essential hypertension Father Myocardial Infarction Unknown Chronic obstructive pulmonary disease Social History Smoking Status: Current every day smoker Alcohol Intake Frequency: does not drink Substance Use: does not use Exam Narrative Narrative: Narrative: General Limitations: no limitations General appearance: Present alert and in no apparent distress Head Head: Present atraumatic, normocephalic and normal inspection Eye Eye: Present normal appearance and EOMI; Absent conjunctival injection ENT ENT: Present normal exam and mucous membranes moist Neck Neck: Present normal inspection and trachea midline Respiratory Respiratory: Present normal lung sounds bilaterally; Absent respiratory distress Cardiovascular Cardiovascular: Present regular rate, normal rhythm and normal heart sounds Adbominal Abdominal: Present soft; Absent distention, tenderness, guarding and rebound Extremities Extremities: Present normal inspection; Absent tenderness Back Back: Present normal inspection; Absent tenderness Neurological Neurological: Present alert and CN II-XII intact; Absent oriented X3 (The pat ient is oriented only to name.) and motor sensory deficit Psychiatric Psychiatric: Present normal affect and normal mood (The patient is confused but in general cooperative with staff. Further psychiatric evaluation is limited.) Skin Skin: Present warm (WNL) and dry; Absent rash Course Vital Signs Vital signs: Vital Signs Temperature 98.7 F 01/02/21 09:06 Pulse Rate 91 H 01/02/21 09:06 Respiratory Rate 19 01/02/21 09:06 Blood Pressure 152/105 01/02/21 09:06 Pulse Oximetry (%) 98 01/02/21 09:06 Temperature 97.7 F 01/02/21 12:28 Pulse Rate 73 01/02/21 12:28 Respiratory Rate 19 01/02/21 12:28 Blood Pressure 140/79 01/02/21 12:16 Pulse Oximetry (%) 98 01/02/21 12:28 [facility] MDM Narrative Medical decision making narrative: Narrative: The patient presents for evaluation of confusion with nausea and thirst. The patient's initial sodium is 118. The patient was treated with normal saline at 100 mL/h. The rest of the patient's labs are unremarkable. The patient has had similar presentations and I believe her confusion is related to her low sodium. I do not believe she requires advanced imaging such as head CT or septic evaluation at this time. I have discussed the case with the hospitalist we will admit the patient Lab Data Result diagrams: 01/02/21 09:55 01/02/21 09:55 Labs: Lab Results 01/02/21 01/02/21 01/02/21 Range/Units 09:08 09:20 09:55 WBC 11.3 H (4.5-11.0) K/mcL RBC 4.34 (4.00-5.20) M/mcL Hgb 12.6 (12.0-15.0) g/dL Hct 36.9 (36.0-48.0) % POC Hct 42 (36-48) % MCV 85.0 (80.0-100.0) fL MCH 29.0 (26.0-34.0) pg MCHC 34.1 (31.0-36.0) g/dL RDW 12.6 (11.5-14.5) % Plt Count 325 (140-440) K/mcL MPV 9.1 (7.4-10.4) fL Neut % (Auto) 76.1 (38.0-78.0) % Lymph % (Auto) 16.6 (15.0-49.0) % [place] % (Auto) 6.3 (1.0-12.0) % Eos % (Auto) 0.6 (0.0-7.0) % Baso % (Auto) 0.4 (0.0-2.0) % Lymph # (Auto) 1.87 (1.50-4.80) K/mcL [place] # (Auto) 0.71 (0.10-0.90) K/mcL Eos # (Auto) 0.07 (0.00-0.70) K/mcL Baso # (Auto) 0.05 (0.00-0.20) K/mcL Absolute Neutrophils 8.57 H (1.80-8.00) K/mcL POC Sodium 117 L* (133-145) mEq/L Sodium (133-145) mmol/L POC Potassium 4.0 (3.3-5.1) mEql/L Potassium (3.3-5.1) mmol/L POC Chloride 84 L (96-108) mEq/L Chloride (96-108) mmol/L Carbon Dioxide (22-30) mmol/L POC Total CO2 22 (22-30) mmol/L Anion Gap (8.0-16.0) POC BUN 10 (6-20) mg/dL BUN (8-23) mg/dL Creatinine (0.6-1.1) mg/dL POC Creatinine 0.8 (0.6-1.2) mg/dL GFR Calculation Glucose (70-105) mg/dL POC Glucose 140 H (70-105) mg/dL Calcium (8.6-10.4) mg/dL POC WB Ioniz Calcium 1.14 L (1.16-1.32) mmEq/L Total Bilirubin (0.1-1.0) mg/dL AST (<32) U/L ALT (<40) U/L Alkaline Phosphatase (39-117) U/L Total Protein (5.9-8.4) gm/dL Albumin (3.2-5.2) gm/dL Globulin (2.2-3.7) gm/dL Albumin/Globulin Ratio (1.0-2.3) TSH (0.27-5.01) uIU/mL Urine Color Light yellow Urine Appearance Clear (Clear) Urine pH 6.5 (5.0-9.0) Ur Specific [place] 1.015 (1.000-1.035) Urine Protein Negative (Negative) mg/dL Urine Glucose (UA) Negative (Negative) mg/dL Urine Ketones Negative (Negative) mg/dL Urine Occult Blood Trace-intact A (Negative) evans/mcL Urine Nitrate Negative (Negative) Urine Bilirubin Negative (Negative) mg/dL Urine Urobilinogen Normal mg/dL Ur Leukocyte Esterase Negative (Negative) /ug Urine RBC < 1 (0-3) /hpf Urine WBC < 1 (0-4) /hpf Ur Squamous Epith Cells 0 (0-4) /hpf Urine Bacteria None (0) /hpf Urine Mucus Few A (None) /hpf Ur Culture Indicated? No 01/02/21 Range/Units 09:55 WBC (4.5-11.0) K/mcL RBC (4.00-5.20) M/mcL Hgb (12.0-15.0) g/dL Hct (36.0-48.0) % POC Hct (36-48) % MCV (80.0-100.0) fL MCH (26.0-34.0) pg MCHC (31.0-36.0) g/dL RDW (11.5-14.5) % Plt Count (140-440) K/mcL MPV (7.4-10.4) fL Neut % (Auto) (38.0-78.0) % Lymph % (Auto) (15.0-49.0) % [place] % (Auto) (1.0-12.0) % Eos % (Auto) (0.0-7.0) % Baso % (Auto) (0.0-2.0) % Lymph # (Auto) (1.50-4.80) K/mcL [place] # (Auto) (0.10-0.90) K/mcL Eos # (Auto) (0.00-0.70) K/mcL Baso # (Auto) (0.00-0.20) K/mcL Absolute Neutrophils (1.80-8.00) K/mcL POC Sodium (133-145) mEq/L Sodium 118 L* (133-145) mmol/L POC Potassium (3.3-5.1) mEql/L Potassium 4.1 (3.3-5.1) mmol/L POC Chloride (96-108) mEq/L Chloride 84 L (96-108) mmol/L Carbon Dioxide 23 (22-30) mmol/L POC Total CO2 (22-30) mmol/L Anion Gap 11.0 (8.0-16.0) POC BUN (6-20) mg/dL BUN 9 (8-23) mg/dL Creatinine 0.8 (0.6-1.1) mg/dL POC Creatinine (0.6-1.2) mg/dL GFR Calculation 74 Glucose 107 H (70-105) mg/dL POC Glucose (70-105) mg/dL Calcium 9.2 (8.6-10.4) mg/dL POC WB Ioniz Calcium (1.16-1.32) mmEq/L Total Bilirubin 0.4 (0.1-1.0) mg/dL AST 12 (<32) U/L ALT 14 (<40) U/L Alkaline Phosphatase 86 (39-117) U/L Total Protein 7.3 (5.9-8.4) gm/dL Albumin 4.1 (3.2-5.2) gm/dL Globulin 3.2 (2.2-3.7) gm/dL Albumin/Globulin Ratio 1.3 (1.0-2.3) TSH 25.35 H (0.27-5.01) uIU/mL Urine Color Urine Appearance (Clear) Urine pH (5.0-9.0) Ur Specific [place] (1.000-1.035) Urine Protein (Negative) mg/dL Urine Glucose (UA) (Negative) mg/dL Urine Ketones (Negative) mg/dL Urine Occult Blood (Negative) evans/mcL Urine Nitrate (Negative) Urine Bilirubin (Negative) mg/dL Urine Urobilinogen mg/dL Ur Leukocyte Esterase (Negative) /ug Urine RBC (0-3) /hpf Urine WBC (0-4) /hpf Ur Squamous Epith Cells (0-4) /hpf Urine Bacteria (0) /hpf Urine Mucus (None) /hpf Ur Culture Indicated? ED POC Tests ED POC Tests: [facility] - Influenza A Negative SHAE - Influenza B Negative [facility] - SARS Antigen Negative Discharge Plan Patient/Caregiver Discharge Instructions Pt seen by [employer] EXECUTIVE/PA only: No Clinical Impression: Acute delirium, Psychogenic polydipsia, Acute hyponatremia Patient Disposition: Xfer As Inpt ([facility]) Condition: Fair Follow up with: Hailey Denis, REJI [Primary Care Provider] - Prescriptions: No Action lamotrigine 200 MG tablet 200 mg PO DAILY RF: 0 lorazepam 1 MG tablet 1 mg PO BID@1200,1800 RF: 0 quetiapine 100 MG tablet 300 mg PO HS RF: 0 amlodipine 10 MG tablet 10 mg PO DAILY RF: 0 losartan 100 MG tablet 100 mg PO DAILY Qty: 30 RF: 1 atorvastatin 40 mg Tablet 40 mg PO QDAY RF: 0 Linzess 290 mcg Capsule 290 mcg PO QDAY RF: 0 aspirin [Adult Low Dose Aspirin] 81 mg Tablet,Delayed Release (Dr/Ec) 81 mg PO BID RF: 0 metformin 500 mg Tablet 1,000 mg PO QDAY RF: 0 trazodone 50 mg Tablet 50 mg PO QHS PRN (Reason: Insomnia) RF: 0 quetiapine 100 mg Tablet 100 mg PO BID RF: 0 nicotine 21 mg/24 hr Patch 24 Hour 21 mg topical DAILY@1000 Qty: 28 RF: 0 lactulose 20 gram/30 mL Solution 20 ml PO DAILYP PRN (Reason: Constipation) Qty: 1200 RF: 0 levothyroxine [Synthroid] 150 mcg Tablet 150 mcg PO QDAY Qty: 60 RF: 0
[2021-01-02] MEDS ORDERED: 0.9 % SODIUM CHLORIDE 1,000 ML IV SCH (13:38)
[2021-01-02] MEDS ORDERED: POLYETHYLENE GLYCOL 3350 17 GM PACKET PO PRN (13:38)
[2021-01-02] MEDS ORDERED: ONDANSETRON 4 MG/2 ML VIAL IV PRN (13:38)
[2021-01-02] MEDS ORDERED: ACETAMINOPHEN 325 MG TABLET PO PRN (13:38)
[2021-01-02] MEDS ORDERED: ONDANSETRON 4 MG ODT TABLET SL PRN (13:38)
[2021-01-02] MEDS ORDERED: BISACODYL 10 MG SUPP.RECT PR PRN (13:38)
[2021-01-02] MEDS ORDERED: MAGNESIUM SULFATE 2 GM/50 ML BAG IV PRN (13:38)
[2021-01-02] MEDS ORDERED: POTASSIUM CHLORIDE 40 MEQ in DEXTROSE 5% IN WATER 500 ML IV PRN (13:38)
[2021-01-02] MEDS ORDERED: ACETAMINOPHEN 650 MG/65 ML BAG IV PRN (13:38)
[2021-01-02] MEDS: 0.9 % SODIUM CHLORIDE 10 ML SYRINGE IV SCH ×2 (14:12→20:37)
[2021-01-02] MEDS: SODIUM CHLORIDE 1 GM TABLET PO SCH ×2 (15:49→20:36)
[2021-01-02] MEDS: CHLORHEXIDINE GLUCONATE 1 ML ORAL.SOL SWABMOUTH SCH ×2 (15:50→20:36)
[2021-01-02] MEDS: LORazepam 1 MG TABLET PO SCH (17:51)
[2021-01-02] MEDS: DOCUSATE SODIUM 100 MG CAPSULE PO SCH (20:35)
[2021-01-02] MEDS: QUEtiapine 100 MG TABLET PO SCH (20:35)
[2021-01-02] MEDS: MELATONIN 3 MG TABLET PO PRN (20:36)
[2021-01-02] MEDS: SENNOSIDES/DOCUSATE SODIUM 1 TAB TABLET PO SCH (20:37)
[2021-01-02] MEDS: traZODone HCL 50 MG TABLET PO PRN (20:37)
[2021-01-02] MEDS: HEPARIN 5,000 UNIT/ML VIAL SQ SCH (20:37)
[2021-01-02] MEDS: ASPIRIN 81 MG TAB.CHEW PO SCH (20:37)
[2021-01-03] MEDS: 0.9 % SODIUM CHLORIDE 10 ML SYRINGE IV SCH ×3 (04:51→20:13)
[2021-01-03 06:27] LABS: Basophils # (Auto) 0.06 K/mcL (0.00-0.20); Basophils % (Auto) 0.8 % (0.0-2.0); Eosinophils % (Auto) 1.4 % (0.0-7.0); Hematocrit 41.8 % (36.0-48.0); Hemoglobin 13.3 g/dL (12.0-15.0); Lymphocytes % (Auto) 29.2 % (15.0-49.0); Mean Cell Volume 91.5 fL (80.0-100.0); Mean Corpuscular HGB Conc 31.8 g/dL (31.0-36.0); Mean Platelet Volume 9.2 fL (7.4-10.4); Monocytes # (Auto) 0.56 K/mcL (0.10-0.90); Monocytes % (Auto) 7.8 % (1.0-12.0); Neutrophils % (Auto) 60.8 % (38.0-78.0); Platelet Count 295 K/mcL (140-440); RBC 4.57 M/mcL (4.00-5.20); Red Cell Distribution Width 13.2 % (11.5-14.5); WBC 7.2 K/mcL (4.5-11.0)
[2021-01-03 06:59] LABS: ALT/SGPT 11 U/L (<40); AST/SGOT 12 U/L (<32); Albumin 3.7 gm/dL (3.2-5.2); Albumin/Globulin Ratio 1.3 (1.0-2.3); Alkaline Phosphatase 77 U/L (39-117); Bilirubin,Direct < 0.2 mg/dL (0-0.3); Bilirubin,Total 0.3 mg/dL (0.1-1.0); Blood Urea Nitrogen 11 mg/dL (8-23); Calcium 9.1 mg/dL (8.6-10.4); Carbon Dioxide 22 mmol/L (22-30); Chloride 102 mmol/L (96-108); Globulin 2.9 gm/dL (2.2-3.7); Glomerular Filtration Rate 57; Glucose 156 mg/dL (70-105); Lactate Dehydrogenase 161 U/L (135-225); Phosphorous 2.9 mg/dL (2.5-4.5); Triglycerides 71 mg/dL (<150); Uric Acid 3.7 mg/dL (2.5-8.0)
[2021-01-03] MEDS: LEVOTHYROXINE 25 MCG TABLET PO SCH (07:20)
[2021-01-03] MEDS: LEVOTHYROXINE SODIUM 112 MCG TABLET PO SCH (07:20)
[2021-01-03] MEDS ORDERED: LEVOTHYROXINE 150 MCG TABLET PO SCH (09:00)
[2021-01-03] MEDS ORDERED: metFORMIN 500 MG TABLET PO SCH (09:00)
[2021-01-03] MEDS: DEXTROSE 5%-1/2NS 1,000 ML IV SCH ×3 (09:34→23:49)
[2021-01-03] MEDS: MULTIVIT,THER IRON,CA,FA & MIN 1 TABLET PO SCH (09:35)
[2021-01-03] MEDS: LOSARTAN 50 MG TABLET PO SCH (09:35)
[2021-01-03] MEDS: metFORMIN 500 MG TAB.XL.24H PO SCH (09:35)
[2021-01-03] MEDS: DOCUSATE SODIUM 100 MG CAPSULE PO SCH ×2 (09:35→20:12)
[2021-01-03] MEDS: QUEtiapine 100 MG TABLET PO SCH ×2 (09:35→20:13)
[2021-01-03] MEDS: ATORVASTATIN 40 MG TABLET PO SCH (09:35)
[2021-01-03] MEDS: ASPIRIN 81 MG TAB.CHEW PO SCH ×2 (09:35→20:12)
[2021-01-03] MEDS: HEPARIN 5,000 UNIT/ML VIAL SQ SCH ×2 (09:35→20:13)
[2021-01-03] MEDS: lamoTRIgine 100 MG TABLET PO SCH (09:35)
[2021-01-03] MEDS: amLODIPine 10 MG TABLET PO SCH (09:35)
[2021-01-03] MEDS: CHLORHEXIDINE GLUCONATE 1 ML ORAL.SOL SWABMOUTH SCH ×3 (09:36→20:13)
[2021-01-03] MEDS: NICOTINE 21 MG PATCH TOPICAL SCH (09:45)
[2021-01-03] MEDS: LORazepam 1 MG TABLET PO SCH ×2 (12:38→18:02)
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
[2021-01-03] MEDS: traZODone HCL 50 MG TABLET PO PRN (20:12)
[2021-01-03] MEDS: SENNOSIDES/DOCUSATE SODIUM 1 TAB TABLET PO SCH (20:12)
[2021-01-03] MEDS: MELATONIN 3 MG TABLET PO PRN (20:13)
[2021-01-04] MEDS: 0.9 % SODIUM CHLORIDE 10 ML SYRINGE IV SCH ×2 (05:23→18:52)
[2021-01-04 07:07] LABS: Basophils # (Auto) 0.06 K/mcL (0.00-0.20); Basophils % (Auto) 0.5 % (0.0-2.0); Eosinophils # (Auto) 0.17 K/mcL (0.00-0.70); Eosinophils % (Auto) 1.5 % (0.0-7.0); Hematocrit 35.8 % (36.0-48.0); Hemoglobin 11.6 g/dL (12.0-15.0); Lymphocytes # (Auto) 2.29 K/mcL (1.50-4.80); Lymphocytes % (Auto) 19.7 % (15.0-49.0); Mean Cell Volume 89.9 fL (80.0-100.0); Mean Corpuscular HGB Conc 32.4 g/dL (31.0-36.0); Mean Platelet Volume 9.2 fL (7.4-10.4); Monocytes # (Auto) 0.86 K/mcL (0.10-0.90); Monocytes % (Auto) 7.4 % (1.0-12.0); Neutrophils % (Auto) 70.9 % (38.0-78.0); Platelet Count 290 K/mcL (140-440); RBC 3.98 M/mcL (4.00-5.20); Red Cell Distribution Width 13.6 % (11.5-14.5); WBC 11.6 K/mcL (4.5-11.0)
[2021-01-04] MEDS: LEVOTHYROXINE 25 MCG TABLET PO SCH (07:51)
[2021-01-04] MEDS: LEVOTHYROXINE SODIUM 112 MCG TABLET PO SCH (07:55)
[2021-01-04] MEDS: metFORMIN 500 MG TAB.XL.24H PO SCH ×2 (07:55→07:58)
[2021-01-04 08:07] LABS: ALT/SGPT 11 U/L (<40); AST/SGOT 10 U/L (<32); Albumin 3.6 gm/dL (3.2-5.2); Albumin/Globulin Ratio 1.6 (1.0-2.3); Alkaline Phosphatase 77 U/L (39-117); Bilirubin,Direct < 0.2 mg/dL (0-0.3); Bilirubin,Total 0.3 mg/dL (0.1-1.0); Blood Urea Nitrogen 15 mg/dL (8-23); Calcium 8.8 mg/dL (8.6-10.4); Carbon Dioxide 25 mmol/L (22-30); Chloride 103 mmol/L (96-108); Globulin 2.3 gm/dL (2.2-3.7); Glomerular Filtration Rate 46; Glucose 119 mg/dL (70-105); Lactate Dehydrogenase 116 U/L (135-225); Triglycerides 93 mg/dL (<150); Uric Acid 3.9 mg/dL (2.5-8.0)
--- NOTE | 2021-01-04 08:45 | XRay Report ---
HISTORY: Confusion, evaluate interval change FINDINGS: There is a vague alveolar infiltrate developing above the right diaphragm. This has evolved since the prior exam done on 11/13/20. The remainder of the lung vaca are clear. Heart size is normal. Aorta is mildly tortuous. No pleural effusion is present. IMPRESSION: Small infiltrate developing in the right lung base. This could be pneumonia. Interpreted and Authenticated by: Albert Rashid 01/04/21
[2021-01-04] MEDS: NICOTINE 21 MG PATCH TOPICAL SCH (10:02)
[2021-01-04] MEDS: CHLORHEXIDINE GLUCONATE 1 ML ORAL.SOL SWABMOUTH SCH ×2 (10:02→18:52)
[2021-01-04] MEDS: HEPARIN 5,000 UNIT/ML VIAL SQ SCH (10:02)
[2021-01-04] MEDS: MULTIVIT,THER IRON,CA,FA & MIN 1 TABLET PO SCH (10:03)
[2021-01-04] MEDS: amLODIPine 10 MG TABLET PO SCH (10:03)
[2021-01-04] MEDS: lamoTRIgine 100 MG TABLET PO SCH (10:03)
[2021-01-04] MEDS: ATORVASTATIN 40 MG TABLET PO SCH (10:03)
[2021-01-04] MEDS: DOCUSATE SODIUM 100 MG CAPSULE PO SCH (10:03)
[2021-01-04] MEDS: LOSARTAN 50 MG TABLET PO SCH (10:03)
[2021-01-04] MEDS: ASPIRIN 81 MG TAB.CHEW PO SCH (10:04)
[2021-01-04] MEDS: QUEtiapine 100 MG TABLET PO SCH (10:10)
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
[2021-01-04] MEDS: DEXTROSE 5%-1/2NS 1,000 ML IV SCH (12:12)
[2021-01-04] MEDS: LORazepam 1 MG TABLET PO SCH (12:17)
== END 2021-01-04 16:00 | disposition home or self-care (01) | DRG 641 ==
LOC: ED 09:00 → ICU 13:25
PROVIDERS: ADMIT Internal Medicine; ATTEND Internal Medicine

== ENCOUNTER 2021-02-12 19:33 | Inpatient (IN) ==
[2021-02-12] MEDS ORDERED: LORazepam 2 MG/ML VIAL IV ONE (20:00)
[2021-02-12] MEDS ORDERED: OLANZapine 10 MG VIAL IM SCH (20:00)
--- NOTE | 2021-02-12 20:04 | Emergency Department Note ---
Altered Mental Status HPI General Chief Complaint: Altered Mental Status Stated Complaint: confusion Time Seen by Provider: 02/12/21 19:43 Source: EMS Mode of arrival: EMS Limitations: altered mental status History of Present Illness HPI Narrative: Narrative: The patient presents agitated, anxious, and confused. Per staff at this facility who know her well, they state that she has visited frequently for the same complaint. She has a history of dementia and psychiatric issues and does not do well when her son, primary caregiver, leaves out of town. She has called EMS multiple times today and was finally brought in. Getting a further history from her is very difficult. Related Data Home Medications Medication Instructions Recorded Confirmed lamotrigine 150 mg PO DAILY 06/09/18 01/02/21 lorazepam 1 mg PO BID@1200,1800 06/09/18 01/02/21 quetiapine 400 mg PO HS 06/10/18 01/02/21 amlodipine 10 mg PO DAILY 05/25/19 01/02/21 Linzess 290 mcg PO QDAY 04/25/20 01/02/21 aspirin [Adult Low Dose Aspirin] 81 mg PO BID 04/25/20 01/02/21 atorvastatin 40 mg PO QDAY 04/25/20 01/02/21 quetiapine 200 mg PO DAILY 11/13/20 01/02/21 trazodone 50 mg PO QHS PRN 11/13/20 01/02/21 levothyroxine [Synthroid] 137 mcg PO QDAY 01/02/21 01/02/21 metformin 1,000 mg PO QDAY 01/02/21 01/02/21 Previous Rx's Medication Instructions Recorded losartan 100 mg PO DAILY #30 tab 06/22/19 lactulose 20 ml PO DAILYP PRN #1200 ml 11/16/20 nicotine 21 mg TOPICAL DAILY@1000 #28 each 11/16/20 sodium chloride 2,000 mg PO BID #60 tab 01/04/21 Allergies Allergy/AdvReac Type Severity Reaction Status Date / Time Penicillins Allergy Severe Swelling Verified 11/13/20 21:13 of Throat Review of Systems ROS ROS Narrative: Narrative: Limitations: ROS unobtainable due to patients medical condition PFSH Narrative Patient History Narrative: Narrative: Medical/Surgical/Family History All Active Problems (Updated 02/12/21 @ 21:19 by Brandon Dixon MD) Suicidal ideation (Acute) Acute anxiety (Acute) SASKIA (generalized anxiety disorder) (Acute) Manipulative behavior (Acute) AMS (altered mental status) (Acute) Psychogenic polydipsia (Acute) Acute hyponatremia (Acute) Acute urinary retention (Acute) Leukocytosis (Acute) Altered level of consciousness (Acute) Acute delirium (Acute) Osteoarthritis of left knee (Acute) Hip arthritis (Acute) Hepatitis (Acute) Dizziness (Acute) Polydipsia (Chronic) Peptic ulcer disease (Chronic) Hypokalemia (Chronic) Hyponatremia (Chronic) Anxiety (Chronic) Acute anxiety (Chronic) Panic disorder (Chronic) Altered mental status (Chronic) Psychogenic polydipsia (Chronic) Hyponatremia (Chronic) Hypochloremia (Chronic) Cigarette smoker (Chronic) Diabetes mellitus type 2, controlled (Chronic) Alzheimer's disease (Chronic) Bipolar disorder (Chronic) Elevated serum GGT level (Chronic) Hypertension, essential (Chronic) Hyperlipidemia (Chronic) Hypothyroidism (acquired) (Chronic) Obesity (Chronic) Constipation (Chronic) Vitamin D deficiency (Chronic) Osteoporosis (Chronic) Osteopenia (Chronic) Anxiety about health (Chronic) Cognitive dysfunction (Chronic) Depression (Chronic) Medical History (Updated 02/12/21 @ 21:19 by Brandon Dixon MD) Abdominal pain Acute anxiety Acute anxiety Acute cystitis with hematuria Acute dehydration Altered mental status Alzheimer's disease Ankle fracture Anxiety Anxiety Anxiety about health Bimalleolar fracture of right ankle Bipolar disorder Cigarette smoker Cognitive dysfunction Constipation 05/27/16; 05/16/18; Cough Depression Diabetes mellitus type 2, controlled Elevated lactic acid level Elevated serum GGT level Encephalopathy acute Encounter for medication refill Episode of generalized weakness Flea bite Foot pain, right Hyperlipidemia Hypertension, essential Hypochloremia Hypokalemia Hypokalemia Hyponatremia Hyponatremia Hyponatremia with excess extracellular fluid volume Hypothyroidism (acquired) Nausea & vomiting Obesity Osteopenia Osteoporosis Panic disorder Peptic ulcer disease Polydipsia Psychogenic polydipsia Rectal pain Schwannoma (02/06/12) Ear Seborrhea Sepsis Urinary tract infection UTI (urinary tract infection) Vitamin D deficiency Yeast infection Surgical History H/O colonoscopy (12/15/17) 11/15/14, 08/23/2015 History of appendectomy (~10/11/98) S/P ORIF (open reduction internal fixation) fracture Right trimalleolur ORIF with syndesmosis fixation, due to fracture S/P LIZETH-BSO (~10/11/98) Family History Mother Arthritis Essential hypertension Father Myocardial Infarction Unknown Chronic obstructive pulmonary disease Social History Smoking Status: Current every day smoker Alcohol Intake Frequency: does not drink Substance Use: does not use Exam Narrative Narrative: Narrative: General Limitations: altered mental status General appearance: Present anxious and in no apparent distress Head Head: Present atraumatic and normal inspection Eye Eye: Present normal appearance ENT ENT: Present mucous membranes moist Neck Neck: Present normal inspection, full ROM and trachea midline; Absent meningismus Chest Chest: Present normal inspection and symmetric chest wall rise Respiratory Respiratory: Absent respiratory distress Adbominal Abdominal: Absent distention Extremities Extremities: Present normal inspection and full ROM Back Back: Present full ROM Neurological Neurological: Present alert; Absent oriented X3 Psychiatric Psychiatric: Present agitated and anxious; Absent normal affect and normal mood Skin Skin: Present warm (WNL) and dry Course Vital Signs Vital signs: Vital Signs Temperature 98.7 F 02/12/21 19:38 Pulse Rate 91 H 02/12/21 19:38 Respiratory Rate 22 02/12/21 19:38 Blood Pressure 178/95 02/12/21 19:38 Pulse Oximetry (%) 100 02/12/21 19:38 Temperature 98.7 F 02/12/21 19:38 Pulse Rate 79 02/12/21 21:31 Respiratory Rate 22 02/12/21 19:38 Blood Pressure 113/75 02/12/21 22:16 Pulse Oximetry (%) 97 02/12/21 21:31 [facility] MDM Narrative Medical decision making narrative: Narrative: The patient presents agitated. Per staff her know her, this is baseline. We will give a dose of Zyprexa and Ativan to help with symptoms. We will then do a work-up to ensure that there is no acute organic cause for this. If work-up is negative, patient will be reassured and discharged back home. 2117 -patient shows hyponatremia. Review of the records reveals that she has a history of the same, however for the last several lab draw she had normal sodium level. I think that this should be repleted slowly. Secondary to this, plan to consult the hospitalist for an observation overnight. I will start normal saline at 125 an hour in the ED. [id number] spoke to the hospitalist, Dr. Post. He said he would come down to evaluate the patient for local admission Lab Data Lab results reviewed: Yes I reviewed the patient's lab results. Result diagrams: 02/12/21 19:55 02/12/21 19:55 Labs: Lab Results 02/12/21 02/12/21 02/12/21 Range/Units 19:45 19:45 19:55 WBC 14.0 H (4.5-11.0) K/mcL RBC 4.50 (4.00-5.20) M/mcL Hgb 13.0 (12.0-15.0) g/dL Hct 38.7 (36.0-48.0) % MCV 86.0 (80.0-100.0) fL MCH 28.9 (26.0-34.0) pg MCHC 33.6 (31.0-36.0) g/dL RDW 13.0 (11.5-14.5) % Plt Count 307 (140-440) K/mcL MPV 9.0 (7.4-10.4) fL Neut % (Auto) 76.5 (38.0-78.0) % Lymph % (Auto) 15.7 (15.0-49.0) % [place] % (Auto) 6.3 (1.0-12.0) % Eos % (Auto) 1.1 (0.0-7.0) % Baso % (Auto) 0.4 (0.0-2.0) % Lymph # (Auto) 2.20 (1.50-4.80) K/mcL [place] # (Auto) 0.88 (0.10-0.90) K/mcL Eos # (Auto) 0.16 (0.00-0.70) K/mcL Baso # (Auto) 0.06 (0.00-0.20) K/mcL Absolute Neutrophils 10.71 H (1.80-8.00) K/mcL VBG Lactic Acid (0.5-2.0) mmol/L Sodium (133-145) mmol/L Potassium (3.3-5.1) mmol/L Chloride (96-108) mmol/L Carbon Dioxide (22-30) mmol/L Anion Gap (8.0-16.0) BUN (8-23) mg/dL Creatinine (0.6-1.1) mg/dL GFR Calculation Glucose (70-105) mg/dL Calcium (8.6-10.4) mg/dL Total Bilirubin (0.1-1.0) mg/dL AST (<32) U/L ALT (<40) U/L Alkaline Phosphatase (39-117) U/L Ammonia (11-51) umol/L Troponin T (<0.03) ng/mL Total Protein (5.9-8.4) gm/dL Albumin (3.2-5.2) gm/dL Globulin (2.2-3.7) gm/dL Albumin/Globulin Ratio (1.0-2.3) Urine Color Urine Appearance (Clear) Urine pH (5.0-9.0) Ur Specific Bath (1.000-1.035) Urine Protein (Negative) mg/dL Urine Glucose (UA) (Negative) mg/dL Urine Ketones (Negative) mg/dL Urine Occult Blood (Negative) mg/dL Urine Nitrate (Negative) Urine Bilirubin (Negative) mg/dL Urine Urobilinogen mg/dL Ur Leukocyte Esterase (Negative) /ug Urine RBC (0-3) /hpf Urine WBC (0-4) /hpf Ur Squamous Epith Cells (0-4) /hpf Urine Bacteria (0) /hpf Epithelial Casts (0-0) /hpf Ur Culture Indicated? Urine Opiates Screen TNP None detected Ur Opiates Confirm TNP Ur Oxycodone Screen TNP None detected Urine Methadone Screen TNP None detected Ur Methadone Confirm TNP Ur Barbiturates Screen TNP None detected Ur Barbiturate Confirm TNP Ur Phencyclidine Scrn TNP None detected Urine PCP Confirm TNP Ur Amphetamines Screen TNP None detected U Amphetamines Confirm TNP U Benzodiazepines Scrn TNP None detected U Benzodiazepine Confm TNP Urine Cocaine Screen TNP None detected Urine Cocaine Confirm TNP U Cannabinoids Confirm TNP U Marijuana (THC) Screen TNP None detected Ethyl Alcohol (<0.010) gm/dL 02/12/21 02/12/21 02/12/21 Range/Units 19:55 19:55 19:55 WBC (4.5-11.0) K/mcL RBC (4.00-5.20) M/mcL Hgb (12.0-15.0) g/dL Hct (36.0-48.0) % MCV (80.0-100.0) fL MCH (26.0-34.0) pg MCHC (31.0-36.0) g/dL RDW (11.5-14.5) % Plt Count (140-440) K/mcL MPV (7.4-10.4) fL Neut % (Auto) (38.0-78.0) % Lymph % (Auto) (15.0-49.0) % [place] % (Auto) (1.0-12.0) % Eos % (Auto) (0.0-7.0) % Baso % (Auto) (0.0-2.0) % Lymph # (Auto) (1.50-4.80) K/mcL [place] # (Auto) (0.10-0.90) K/mcL Eos # (Auto) (0.00-0.70) K/mcL Baso # (Auto) (0.00-0.20) K/mcL Absolute Neutrophils (1.80-8.00) K/mcL VBG Lactic Acid 1.8 (0.5-2.0) mmol/L Sodium 115 L* (133-145) mmol/L Potassium 3.6 (3.3-5.1) mmol/L Chloride 83 L (96-108) mmol/L Carbon Dioxide 24 (22-30) mmol/L Anion Gap 8.0 (8.0-16.0) BUN 8 (8-23) mg/dL Creatinine 0.8 (0.6-1.1) mg/dL GFR Calculation 74 Glucose 199 H (70-105) mg/dL Calcium 9.5 (8.6-10.4) mg/dL Total Bilirubin 0.4 (0.1-1.0) mg/dL AST 19 (<32) U/L ALT 22 (<40) U/L Alkaline Phosphatase 93 (39-117) U/L Ammonia 33 (11-51) umol/L Troponin T (<0.03) ng/mL Total Protein 7.3 (5.9-8.4) gm/dL Albumin 4.5 (3.2-5.2) gm/dL Globulin 2.8 (2.2-3.7) gm/dL Albumin/Globulin Ratio 1.6 (1.0-2.3) Urine Color Urine Appearance (Clear) Urine pH (5.0-9.0) Ur Specific Bath (1.000-1.035) Urine Protein (Negative) mg/dL Urine Glucose (UA) (Negative) mg/dL Urine Ketones (Negative) mg/dL Urine Occult Blood (Negative) mg/dL Urine Nitrate (Negative) Urine Bilirubin (Negative) mg/dL Urine Urobilinogen mg/dL Ur Leukocyte Esterase (Negative) /ug Urine RBC (0-3) /hpf Urine WBC (0-4) /hpf Ur Squamous Epith Cells (0-4) /hpf Urine Bacteria (0) /hpf Epithelial Casts (0-0) /hpf Ur Culture Indicated? Urine Opiates Screen Ur Opiates Confirm Ur Oxycodone Screen Urine Methadone Screen Ur Methadone Confirm Ur Barbiturates Screen Ur Barbiturate Confirm Ur Phencyclidine Scrn Urine PCP Confirm Ur Amphetamines Screen U Amphetamines Confirm U Benzodiazepines Scrn U Benzodiazepine Confm Urine Cocaine Screen Urine Cocaine Confirm U Cannabinoids Confirm U Marijuana (THC) Screen Ethyl Alcohol (<0.010) gm/dL 02/12/21 02/12/21 02/12/21 Range/Units 19:55 19:55 20:35 WBC (4.5-11.0) K/mcL RBC (4.00-5.20) M/mcL Hgb (12.0-15.0) g/dL Hct (36.0-48.0) % MCV (80.0-100.0) fL MCH (26.0-34.0) pg MCHC (31.0-36.0) g/dL RDW (11.5-14.5) % Plt Count (140-440) K/mcL MPV (7.4-10.4) fL Neut % (Auto) (38.0-78.0) % Lymph % (Auto) (15.0-49.0) % [place] % (Auto) (1.0-12.0) % Eos % (Auto) (0.0-7.0) % Baso % (Auto) (0.0-2.0) % Lymph # (Auto) (1.50-4.80) K/mcL [place] # (Auto) (0.10-0.90) K/mcL Eos # (Auto) (0.00-0.70) K/mcL Baso # (Auto) (0.00-0.20) K/mcL Absolute Neutrophils (1.80-8.00) K/mcL VBG Lactic Acid (0.5-2.0) mmol/L Sodium (133-145) mmol/L Potassium (3.3-5.1) mmol/L Chloride (96-108) mmol/L Carbon Dioxide (22-30) mmol/L Anion Gap (8.0-16.0) BUN (8-23) mg/dL Creatinine (0.6-1.1) mg/dL GFR Calculation Glucose (70-105) mg/dL Calcium (8.6-10.4) mg/dL Total Bilirubin (0.1-1.0) mg/dL AST (<32) U/L ALT (<40) U/L Alkaline Phosphatase (39-117) U/L Ammonia (11-51) umol/L Troponin T < 0.01 (<0.03) ng/mL Total Protein (5.9-8.4) gm/dL Albumin (3.2-5.2) gm/dL Globulin (2.2-3.7) gm/dL Albumin/Globulin Ratio (1.0-2.3) Urine Color Colorless Urine Appearance Clear (Clear) Urine pH 6.0 (5.0-9.0) Ur Specific [place] 1.001 (1.000-1.035) Urine Protein Negative (Negative) mg/dL Urine Glucose (UA) 150 A (Negative) mg/dL Urine Ketones Negative (Negative) mg/dL Urine Occult Blood 0.03 (Negative) mg/dL Urine Nitrate Negative (Negative) Urine Bilirubin Negative (Negative) mg/dL Urine Urobilinogen Negative mg/dL Ur Leukocyte Esterase Negative (Negative) /ug Urine RBC 1 (0-3) /hpf Urine WBC 3 (0-4) /hpf Ur Squamous Epith Cells 1 (0-4) /hpf Urine Bacteria 0 (0) /hpf Epithelial Casts 1 H (0-0) /hpf Ur Culture Indicated? No Urine Opiates Screen Ur Opiates Confirm Ur Oxycodone Screen Urine Methadone Screen Ur Methadone Confirm Ur Barbiturates Screen Ur Barbiturate Confirm Ur Phencyclidine Scrn Urine PCP Confirm Ur Amphetamines Screen U Amphetamines Confirm U Benzodiazepines Scrn U Benzodiazepine Confm Urine Cocaine Screen Urine Cocaine Confirm U Cannabinoids Confirm U Marijuana (THC) Screen Ethyl Alcohol < 0.010 (<0.010) gm/dL Radiology Data Radiology results reviewed: Yes I reviewed the patient's radiology results. Radiology results narrative: Per my interpretation of the portable chest x-ray, there is no infiltrate EKG Data EKG #1: EKG attestation: Yes I reviewed and interpreted this EKG. and Yes There are no EKG findings of acute coronary syndrome EKG results narrative: Atrial fibrillation, rate 100, QTC 482, normal axis , narrow complex QRS, no acute ST or T changes concerning for acute infarction CC TIME Critical Care Time Critical Care Time: Yes Total Critical Care Time: 45 Discharge Plan Patient/Caregiver Discharge Instructions Pt seen by [employer]/PA only: No Clinical Impression: Hyponatremia, Acute anxiety, Acute delirium Patient Disposition: Xfer As Outpt/Obs ([facility]) Condition: Fair Follow up with: Hailey Denis ARNP [Primary Care Provider] - Prescriptions: No Action lamotrigine 200 MG tablet 150 mg PO DAILY RF: 0 lorazepam 1 MG tablet 1 mg PO BID@1200,1800 RF: 0 quetiapine 100 MG tablet 400 mg PO HS RF: 0 amlodipine 10 MG tablet 10 mg PO DAILY RF: 0 losartan 100 MG tablet 100 mg PO DAILY Qty: 30 RF: 1 atorvastatin 40 mg Tablet 40 mg PO QDAY RF: 0 Linzess 290 mcg Capsule 290 mcg PO QDAY RF: 0 aspirin [Adult Low Dose Aspirin] 81 mg Tablet,Delayed Release (Dr/Ec) 81 mg PO BID RF: 0 trazodone 50 mg Tablet 50 mg PO QHS PRN (Reason: Insomnia) RF: 0 quetiapine 100 mg Tablet 200 mg PO DAILY RF: 0 nicotine 21 mg/24 hr Patch 24 Hour 21 mg topical DAILY@1000 Qty: 28 RF: 0 lactulose 20 gram/30 mL Solution 20 ml PO DAILYP PRN (Reason: Constipation) Qty: 1200 RF: 0 levothyroxine [Synthroid] 150 mcg tablet 137 mcg PO QDAY RF: 0 metformin 500 mg Tablet Extended Release 24hr 1,000 mg PO QDAY RF: 0 sodium chloride 1,000 mg tablet,soluble 2,000 mg PO BID Qty: 60 RF: 0
[2021-02-12 20:46] LABS: Basophils # (Auto) 0.06 K/mcL (0.00-0.20); Basophils % (Auto) 0.4 % (0.0-2.0); Eosinophils # (Auto) 0.16 K/mcL (0.00-0.70); Eosinophils % (Auto) 1.1 % (0.0-7.0); Hematocrit 38.7 % (36.0-48.0); Lymphocytes % (Auto) 15.7 % (15.0-49.0); Mean Corpuscular HGB Conc 33.6 g/dL (31.0-36.0); Monocytes # (Auto) 0.88 K/mcL (0.10-0.90); Monocytes % (Auto) 6.3 % (1.0-12.0); Neutrophils % (Auto) 76.5 % (38.0-78.0); Platelet Count 307 K/mcL (140-440)
[2021-02-12 21:08] LABS: Alcohol, Blood < 10.0 mg/dL; Alcohol,Blood < 0.010 gm/dL (<0.010)
[2021-02-12 21:12] LABS: Amphetamine Screen,Urine None detected; Barbiturate Screen,Urine None detected; Benzodiazepines Screen,Urine None detected; Cannabinoid Screen,Urine None detected; Cocaine Screen,Urine None detected; Opiate Screen,Urine None detected; Oxycodone, Urine Screen None detected; Phencyclidine Screen,Urine None detected
[2021-02-12 21:14] LABS: ALT/SGPT 22 U/L (<40); AST/SGOT 19 U/L (<32); Albumin 4.5 gm/dL (3.2-5.2); Albumin/Globulin Ratio 1.6 (1.0-2.3); Alkaline Phosphatase 93 U/L (39-117); Bilirubin,Total 0.4 mg/dL (0.1-1.0); Blood Urea Nitrogen 8 mg/dL (8-23); Calcium 9.5 mg/dL (8.6-10.4); Carbon Dioxide 24 mmol/L (22-30); Chloride 83 mmol/L (96-108); Globulin 2.8 gm/dL (2.2-3.7); Glomerular Filtration Rate 74; Glucose 199 mg/dL (70-105)
[2021-02-12] MEDS ORDERED: 0.9 % SODIUM CHLORIDE 1,000 ML IV SCH (21:30)
[2021-02-12 21:56] LABS: Appearance,Urine CLEAR (Clear); Bacteria,Urine 0 /hpf (0); Bilirubin,Urine Negative (Negative); Color,Urine COLORLESS; Culture Indicated,Urine No; Glucose,Urine (UA) 150 mg/dL (Negative); Ketones,Urine Negative (Negative); Leukocyte Esterase,Urine Negative /ug (Negative); Nitrate,Urine Negative (Negative); Protein,Urine Negative (Negative); Specific Gravity,Urine 1.001 (1.000-1.035); Urine Blood 0.03 mg/dL (Negative); Urine Epithelial Cast 1 /hpf (0-0); Urine RBC 1 /hpf (0-3); Urine Squamous Epithelial Cell 1 /hpf (0-4); Urine WBC 3 /hpf (0-4); Urobilinogen,Urine Negative
--- NOTE | 2021-02-12 22:05 | Internal Med History&Physical ---
HPI History of Present Illness Patient information: Note initiated : 02/12/21 at 9:56 pm Service Date, if different from initiated Date: [] Patient: Cynthia Kirby 70 y/o F admitted on for confusion. Chief Complaint: [] History of present illness: Ms. Kirby is a 70 year old F Brought in today by EMS whom she has called multiple times for eating please help me over and over. And repeating that she wants to go home. Sounds like per history she gets agitated and fanatical seems when her son is out. In the ED she had a work-up which revealed a sodium of 115. 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 CT brain per ED provider was unremarkable. She did have a leukocytosis of 14 but was afebrile. And denies objective fevers and chills. Chest x-ray and urinalysis pending. She has an underlying psychiatric issues and follows with a psychiatrist. She was started on normal saline in the ED. Review of Systems: Pertinent positives as above. Denies head ache/fever/chills/nausea/vomiting/chest or abdominal pain/cough/dyspnea/diarrhea. Many 10 point review of system reviewed negative PFSH PFSH All Active Problems (Updated 02/12/21 @ 21:19 by Brandon Dixon MD) Suicidal ideation (Acute) Acute anxiety (Acute) SASKIA (generalized anxiety disorder) (Acute) Manipulative behavior (Acute) AMS (altered mental status) (Acute) Psychogenic polydipsia (Acute) Acute hyponatremia (Acute) Acute urinary retention (Acute) Leukocytosis (Acute) Altered level of consciousness (Acute) Acute delirium (Acute) Osteoarthritis of left knee (Acute) Hip arthritis (Acute) Hepatitis (Acute) Dizziness (Acute) Polydipsia (Chronic) Peptic ulcer disease (Chronic) Hypokalemia (Chronic) Hyponatremia (Chronic) Anxiety (Chronic) Acute anxiety (Chronic) Panic disorder (Chronic) Altered mental status (Chronic) Psychogenic polydipsia (Chronic) Hyponatremia (Chronic) Hypochloremia (Chronic) Cigarette smoker (Chronic) Diabetes mellitus type 2, controlled (Chronic) Alzheimer's disease (Chronic) Bipolar disorder (Chronic) Elevated serum GGT level (Chronic) Hypertension, essential (Chronic) Hyperlipidemia (Chronic) Hypothyroidism (acquired) (Chronic) Obesity (Chronic) Constipation (Chronic) Vitamin D deficiency (Chronic) Osteoporosis (Chronic) Osteopenia (Chronic) Anxiety about health (Chronic) Cognitive dysfunction (Chronic) Depression (Chronic) Medical History (Updated 02/12/21 @ 21:19 by Brandon Dixon MD) Abdominal pain Acute anxiety Acute anxiety Acute cystitis with hematuria Acute dehydration Altered mental status Alzheimer's disease Ankle fracture Anxiety Anxiety Anxiety about health Bimalleolar fracture of right ankle Bipolar disorder Cigarette smoker Cognitive dysfunction Constipation 05/27/16; 05/16/18; Cough Depression Diabetes mellitus type 2, controlled Elevated lactic acid level Elevated serum GGT level Encephalopathy acute Encounter for medication refill Episode of generalized weakness Flea bite Foot pain, right Hyperlipidemia Hypertension, essential Hypochloremia Hypokalemia Hypokalemia Hyponatremia Hyponatremia Hyponatremia with excess extracellular fluid volume Hypothyroidism (acquired) Nausea & vomiting Obesity Osteopenia Osteoporosis Panic disorder Peptic ulcer disease Polydipsia Psychogenic polydipsia Rectal pain Schwannoma (02/06/12) Ear Seborrhea Sepsis Urinary tract infection UTI (urinary tract infection) Vitamin D deficiency Yeast infection Surgical History H/O colonoscopy (12/15/17) 11/15/14, 08/23/2015 History of appendectomy (~10/11/98) S/P ORIF (open reduction internal fixation) fracture Right trimalleolur ORIF with syndesmosis fixation, due to fracture S/P LIZETH-BSO (~10/11/98) Family History Mother Arthritis Essential hypertension Father Myocardial Infarction Unknown Chronic obstructive pulmonary disease Social History (Updated 12/25/18 @ 14:30 by Katelyn Valdes PA-C) marital status: other: Children-1 alcohol intake frequency: does not drink substance use type: does not use MEDS/ALLERGIES Home Medications and Allergies Home Medications Medication Instructions Recorded Confirmed Type lamotrigine 150 mg PO DAILY 06/09/18 01/02/21 History lorazepam 1 mg PO BID@1200,1800 06/09/18 01/02/21 History quetiapine 400 mg PO HS 06/10/18 01/02/21 History amlodipine 10 mg PO DAILY 05/25/19 01/02/21 History losartan 100 mg PO DAILY #30 tab 06/22/19 01/02/21 Rx Linzess 290 mcg PO QDAY 04/25/20 01/02/21 History aspirin [Adult Low Dose Aspirin] 81 mg PO BID 04/25/20 01/02/21 History atorvastatin 40 mg PO QDAY 04/25/20 01/02/21 History quetiapine 200 mg PO DAILY 11/13/20 01/02/21 History trazodone 50 mg PO QHS PRN 11/13/20 01/02/21 History lactulose 20 ml PO DAILYP PRN #1200 ml 11/16/20 01/03/21 Rx nicotine 21 mg TOPICAL DAILY@1000 #28 each 11/16/20 01/02/21 Rx levothyroxine [Synthroid] 137 mcg PO QDAY 01/02/21 01/02/21 History metformin 1,000 mg PO QDAY 01/02/21 01/02/21 History sodium chloride 2,000 mg PO BID #60 tab 01/04/21 Rx Allergies Allergy/AdvReac Type Severity Reaction Status Date / Time Penicillins Allergy Severe Swelling Verified 11/13/20 21:13 of Throat EXAM Constitutional Vitals: Temp Pulse Resp BP Pulse Ox 98.7 F 79 22 135/75 97 02/12/21 19:38 02/12/21 21:31 02/12/21 19:38 02/12/21 21:31 02/12/21 21:31 Exam: General: Alert, Awake, No acute Distress Eyes/N/T: EOMI, PERRL, moist mucous membranes Head/Neck: neck supple, normocephalic atraumatic CV: RRR, No murmurs, normal s1/s2 Pulm: Clear b/l, no wheezing/rhonchi/rales Abd: soft, nontender, +BS x4 Ext: no clubbing/cyanosis/edema Neuro: Alert, no focal deficits, moves all extremities, CN 2-12 grossly intact, symmetrical strength b/l upper/lower, sensations intact b/l upper/lower Skin: warm/dry DATA Data Completed and Pending Labs: Labs from last 24 hours 02/12/21 02/12/21 02/12/21 20:35 19:55 19:55 WBC RBC Hgb Hct MCV MCH MCHC RDW Plt Count MPV Neut % (Auto) Lymph % (Auto) [place] % (Auto) Eos % (Auto) Baso % (Auto) Lymph # (Auto) [place] # (Auto) Eos # (Auto) Baso # (Auto) Absolute Neutrophils VBG Lactic Acid Sodium Potassium Chloride Carbon Dioxide Anion Gap BUN Creatinine GFR Calculation Glucose Calcium Total Bilirubin AST ALT Alkaline Phosphatase Ammonia Troponin T < 0.01 Total Protein Albumin Globulin Albumin/Globulin Ratio Urine Color Pending Urine Appearance Pending Urine pH Pending Ur Specific [place] Pending Urine Protein Pending Urine Glucose (UA) Pending Urine Ketones Pending Urine Occult Blood Pending Urine Nitrate Pending Urine Bilirubin Pending Urine Urobilinogen Pending Ur Leukocyte Esterase Pending Urine Opiates Screen Ur Opiates Confirm Ur Oxycodone Screen Urine Methadone Screen Ur Methadone Confirm Ur Barbiturates Screen Ur Barbiturate Confirm Ur Phencyclidine Scrn Urine PCP Confirm Ur Amphetamines Screen U Amphetamines Confirm U Benzodiazepines Scrn U Benzodiazepine Confm Urine Cocaine Screen Urine Cocaine Confirm U Cannabinoids Confirm U Marijuana (THC) Screen Ethyl Alcohol < 0.010 02/12/21 02/12/21 02/12/21 19:55 19:55 19:55 WBC RBC Hgb Hct MCV MCH MCHC RDW Plt Count MPV Neut % (Auto) Lymph % (Auto) [place] % (Auto) Eos % (Auto) Baso % (Auto) Lymph # (Auto) [place] # (Auto) Eos # (Auto) Baso # (Auto) Absolute Neutrophils VBG Lactic Acid 1.8 Sodium 115 L* Potassium 3.6 Chloride 83 L Carbon Dioxide 24 Anion Gap 8.0 BUN 8 Creatinine 0.8 GFR Calculation 74 Glucose 199 H Calcium 9.5 Total Bilirubin 0.4 AST 19 ALT 22 Alkaline Phosphatase 93 Ammonia 33 Troponin T Total Protein 7.3 Albumin 4.5 Globulin 2.8 Albumin/Globulin Ratio 1.6 Urine Color Urine Appearance Urine pH Ur Specific [place] Urine Protein Urine Glucose (UA) Urine Ketones Urine Occult Blood Urine Nitrate Urine Bilirubin Urine Urobilinogen Ur Leukocyte Esterase Urine Opiates Screen Ur Opiates Confirm Ur Oxycodone Screen Urine Methadone Screen Ur Methadone Confirm Ur Barbiturates Screen Ur Barbiturate Confirm Ur Phencyclidine Scrn Urine PCP Confirm Ur Amphetamines Screen U Amphetamines Confirm U Benzodiazepines Scrn U Benzodiazepine Confm Urine Cocaine Screen Urine Cocaine Confirm U Cannabinoids Confirm U Marijuana (THC) Screen Ethyl Alcohol 02/12/21 02/12/21 02/12/21 19:55 19:45 19:45 WBC 14.0 H RBC 4.50 Hgb 13.0 Hct 38.7 MCV 86.0 MCH 28.9 MCHC 33.6 RDW 13.0 Plt Count 307 MPV 9.0 Neut % (Auto) 76.5 Lymph % (Auto) 15.7 [place] % (Auto) 6.3 Eos % (Auto) 1.1 Baso % (Auto) 0.4 Lymph # (Auto) 2.20 [place] # (Auto) 0.88 Eos # (Auto) 0.16 Baso # (Auto) 0.06 Absolute Neutrophils 10.71 H VBG Lactic Acid Sodium Potassium Chloride Carbon Dioxide Anion Gap BUN Creatinine GFR Calculation Glucose Calcium Total Bilirubin AST ALT Alkaline Phosphatase Ammonia Troponin T Total Protein Albumin Globulin Albumin/Globulin Ratio Urine Color Urine Appearance Urine pH Ur Specific [place] Urine Protein Urine Glucose (UA) Urine Ketones Urine Occult Blood Urine Nitrate Urine Bilirubin Urine Urobilinogen Ur Leukocyte Esterase Urine Opiates Screen None detected TNP Ur Opiates Confirm TNP Pending Ur Oxycodone Screen None detected TNP Urine Methadone Screen None detected TNP Ur Methadone Confirm TNP Pending Ur Barbiturates Screen None detected TNP Ur Barbiturate Confirm TNP Pending Ur Phencyclidine Scrn None detected TNP Urine PCP Confirm TNP Pending Ur Amphetamines Screen None detected TNP U Amphetamines Confirm TNP Pending U Benzodiazepines Scrn None detected TNP U Benzodiazepine Confm TNP Pending Urine Cocaine Screen None detected TNP Urine Cocaine Confirm TNP Pending U Cannabinoids Confirm TNP Pending U Marijuana (THC) Screen None detected TNP Ethyl Alcohol A/P Narrative A/P Narrative: A: *Hyponatremia, acute on chronic: History of psychogenic polydipsia *Confusion, acute on chronic: Secondary to underlying dementia and psychiatric conditions & ?metabolic disturbance, she is A&Ox4. I suspect given history that she may be more or less at baseline *Leukocytosis: Afebrile, UA and chest x-ray pending *Dementia w/behavioral disturbances: *Anxiety/bipolar disorder *DM: *Hypothyroidism: check tsh, has been poorly controlled in past *HTN/HLD: *Tobacco abuse: * P: -given h/o rapid rise, will start DDAVP/3% regimen -serial sodium check -urine studies -fluid restrict -cont psych meds -cont norvasc/ARB, ASA/Statin -SSI, hold metformin for now - -ppx: Lovenox Time Spent With Patient Time: Total time spent is greater than 50% in coordination of care (as documented) at patient's floor/unit and/or counseling patient:
[2021-02-12 22:35] LABS: POC Calcium, Ionized 1.05 mmEq/L (1.16-1.32); POC Creatinine 0.6 mg/dL (0.6-1.2); POC Potassium 2.8 mEql/L (3.3-5.1)
[2021-02-12 23:46] LABS: Osmolality,Urine 74 mOSM/kg (80-1000)
[2021-02-12 23:56] LABS: Blood Urea Nitrogen 8 mg/dL (8-23); Calcium 7.6 mg/dL (8.6-10.4); Carbon Dioxide 21 mmol/L (22-30); Chloride 94 mmol/L (96-108); Glomerular Filtration Rate 87; Glucose 59 mg/dL (70-105)
[2021-02-13 00:02] LABS: Free T4 (Free Thyroxine) 0.86 ng/dL (0.93-1.70); Thyroid Stimulating Hormone 19.37 uIU/mL (0.27-5.01)
[2021-02-13] MEDS ORDERED: POTASSIUM CHLORIDE 40 MEQ in DEXTROSE 5% IN WATER 500 ML IV PRN (00:24)
[2021-02-13] MEDS ORDERED: OLANZapine 5 MG TABLET PO PRN (00:24)
[2021-02-13] MEDS ORDERED: DEXTROSE 50% 50 ML VIAL IV PRN (00:24)
[2021-02-13] MEDS ORDERED: SENNOSIDES 1 TABLET PO PRN (00:24)
[2021-02-13] MEDS ORDERED: MAGNESIUM SULFATE 2 GM/50 ML BAG IV PRN (00:24)
[2021-02-13] MEDS ORDERED: POTASSIUM CHLORIDE 20 MEQ TABLET PO ONE (00:24)
[2021-02-13] MEDS ORDERED: OLANZapine 10 MG VIAL IM SCH (00:24)
[2021-02-13] MEDS ORDERED: IPRATROPIUM/ALBUTEROL 3 ML AMPUL.NEB NEB PRN (00:24)
[2021-02-13] MEDS ORDERED: POTASSIUM CHLORIDE 20 MEQ TABLET PO PRN ×2 (00:24)
[2021-02-13] MEDS ORDERED: SODIUM CHLORIDE 3 % 500 ML IV SCH ×2 (00:24→19:15)
[2021-02-13] MEDS ORDERED: DEXTROSE 31 GM ORAL.SUSP PO PRN (00:24)
[2021-02-13] MEDS: DEXTROSE 5% IN WATER 1,000 ML IV SCH ×2 (00:30→08:09)
[2021-02-13] MEDS ORDERED: OLANZapine 10 MG VIAL IM ONE (00:46)
[2021-02-13] MEDS: DESMOPRESSIN ACETATE 1 MCG in 0.9 % SODIUM CHLORIDE 50 ML IV SCH ×4 (00:57→17:39)
[2021-02-13 01:15] LABS: Sodium, Urine Random 15 mmol/L
--- NOTE | 2021-02-13 02:08 | XRay Report ---
CLINICAL INFORMATION: Follow-up pneumonia COMPARISON: 01/04/2021 FINDINGS: Heart size, mediastinum and pulmonary vessels are normal. Small right basilar infiltrate has cleared. Lungs are unremarkable. No effusions. IMPRESSION: Normal chest Interpreted and Authenticated by: Paul Harper 02/13/21
[2021-02-13 02:10] LABS: POC Calcium, Ionized 1.17 mmEq/L (1.16-1.32); POC Creatinine 0.9 mg/dL (0.6-1.2); POC Potassium 3.4 mEql/L (3.3-5.1)
--- NOTE | 2021-02-13 02:19 | Cat Scan Report ---
CLINICAL INFORMATION: Altered mental status COMPARISON: Head CT without contrast 11/13/2020 TECHNIQUE: 2.5 mm helical slices were obtained in the skull base to vertex. Following reconstruction, axial reformatted images were reviewed at bone and parenchymal windows. The exam was performed using radiation dose optimization techniques including, but not limited to, automated exposure control, adjustment of the mA and/or kV according to patient size and use of iterative reconstruction technique. FINDINGS: The ventricles, sulci, fissures, and cisterns are symmetrically enlarged compatible with mild age-related atrophy. No extra-axial fluid collections are identified. Mild patchy chronic ischemic changes, typical for age, are stable. There is no evidence of hemorrhage, mass effect, or edema. Bone windows show no osseous abnormality. IMPRESSION: Mild atrophy and minimal chronic ischemic changes in the cerebral white matter typical for age and stable.. Interpreted and Authenticated by: Paul Harper 02/13/21
[2021-02-13] MEDS: 0.9 % SODIUM CHLORIDE 10 ML SYRINGE IV SCH ×3 (06:10→20:52)
[2021-02-13 06:36] LABS: POC Calcium, Ionized 1.19 mmEq/L (1.16-1.32); POC Creatinine 0.8 mg/dL (0.6-1.2); POC Potassium 4.2 mEql/L (3.3-5.1)
--- NOTE | 2021-02-13 07:27 | Internal Med Progress Note ---
SUBJECTIVE Subjective Patient information: Note initiated : 02/13/21 at 7:20 am Service Date, if different from initiated Date: [] Patient: Cynthia Kirby 70 y/o F admitted on 02/12/21 for confusion. Chief Complaint: [] Interval history: History of present illness: Ms. Kirby is a 70 year old F Brought in today by EMS whom she has called multiple times for eating please help me over and over. And repeating that she wants to go home. Sounds like per history she gets agitated and fanatical seems when her son is out. In the ED she had a work-up which revealed a sodium of 115. 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 CT brain per ED provider was unremarkable. She did have a leukocytosis of 14 but was afebrile. And denies objective fevers and chills. Chest x-ray and urinalysis pending. She has an underlying psychiatric issues and follows with a psychiatrist. She was started on normal saline in the ED. 02/13 Occasional headaches but mild. Some nausea but no vomiting. Otherwise no complaints. Review of Systems: denies fever/chills/vomiting/chest or abdominal pain/cough/dyspnea/diarrhea. Otherwise see above. Constitutional Vitals: Vital Signs Temp Pulse Resp BP Pulse Ox 97.8 F 71 19 141/75 97 02/13/21 00:19 02/13/21 02:09 02/13/21 04:14 02/13/21 02:09 02/13/21 02:09 Period Temp Pulse Resp BP Sys/Norris Pulse Ox Last 24 Hr 97.8 F-98.7 F 71-92 12-28 113-178/65-124 96-100 Intake and Output 02/12/21 02/13/21 02/13/21 21:59 05:59 13:59 Intake Total 344.25 320 Output Total 1375 900 Balance -1030.75 -580 Weight 91.671 kg 91.671 kg Intake & Output: Intake & Output 02/12/21 02/13/21 02/13/21 21:59 05:59 13:59 Intake Total 344.25 320 Output Total 1375 900 Balance -1030.75 -580 Weight 91.671 kg 91.671 kg Intake: IV 344.25 Sodium Chloride 0.9% 1,000 ml @ 294 125 mls/hr IV .Q8H YG Rx#: [id number] Ddavp 1 Mcg In Sodium Chloride 50.25 0.9% 50 ml @ 200 mls/hr IV Q6 [facility] Rx#:[id number] Oral 320 Output: Void Amount 1375 900 Other: Urine Appearance Clear Clear Urine Color Pale Pale Exam: General: Alert, Awake, No acute Distress Eyes/N/T: EOMI, Head/Neck: neck supple, CV: RRR, No murmurs, Pulm: Clear b/l, no wheezing/rhonchi/rales Abd: soft, nontender, +BS x4 Ext: no clubbing/cyanosis/edema Neuro: Alert, no focal deficits, moves all extremities, Skin: warm/dry OBJ DATA Labs CBC & Chem 7: 02/13/21 06:12 02/13/21 06:12 Labs: Abnormal Lab Results 02/13/21 02/13/21 02/12/21 06:12 02:03 22:13 WBC POC Hct Absolute Neutrophils POC Sodium 127 L 126 L Sodium 124 L POC Potassium Potassium 2.8 L* POC Chloride 93 L 92 L Chloride 94 L Carbon Dioxide 21 L POC Total CO2 Glucose 59 L POC Glucose 113 H 212 H Osmolality Calcium 7.6 L POC WB Ioniz Calcium TSH Free T4 Urine Glucose (UA) Epithelial Casts Urine Osmolality 02/12/21 02/12/21 02/12/21 22:13 20:35 19:55 WBC POC Hct 31 L Absolute Neutrophils POC Sodium 129 L Sodium 115 L* POC Potassium 2.8 L* Potassium POC Chloride 95 L Chloride 83 L Carbon Dioxide POC Total CO2 21 L Glucose 199 H POC Glucose 62 L Osmolality 258 L Calcium POC WB Ioniz Calcium 1.05 L TSH 19.37 H Free T4 0.86 L Urine Glucose (UA) 150 A Epithelial Casts 1 H Urine Osmolality 02/12/21 02/12/21 19:55 19:45 WBC 14.0 H POC Hct Absolute Neutrophils 10.71 H POC Sodium Sodium POC Potassium Potassium POC Chloride Chloride Carbon Dioxide POC Total CO2 Glucose POC Glucose Osmolality Calcium POC WB Ioniz Calcium TSH Free T4 Urine Glucose (UA) Epithelial Casts Urine Osmolality 74 L Meds: Medications Acetaminophen (Acetaminophen 325 Mg Tablet) 650 mg PO Q6HP PRN PRN Reason: PAIN/FEVER > 101 Albuterol/Ipratropium (Ipratropium/Albuterol 3 Ml Ampul.Neb) 3 ml NEB Q4HP PRN PRN Reason: Shortness Of Breath Dextrose (Dextrose 50% 50 Ml Vial) 0 ml IV UD PRN PRN Reason: Hypoglycemia Diagnostic Test (Pha) (Accu-Chek 1 Each Strip) 1 each FS ACHS [facility] Last Admin: 02/13/21 01:05 Dose: 1 each Documented by: Docusate Sodium (Docusate Sodium 100 Mg Capsule) 100 mg PO BID [facility] Enoxaparin Sodium (Enoxaparin 40 Mg/0.4 Ml Syringe) 40 mg SQ DAILY [facility] Glucose (Dextrose 31 Gm Oral.Susp) 15 gm PO PRN PRN PRN Reason: Hypoglycemia Potassium Chloride 40 meq/ (Dextrose) 520 mls @ 130 mls/hr IV UD PRN PRN Reason: Potassium < 3 Magnesium Sulfate (Magnesium Sulfate) 2 gm in 50 mls @ 50 mls/hr IV UD PRN PRN Reason: Magnesium </= 1.6 Desmopressin Acetate 1 mcg/ (Sodium Chloride) 50.25 mls @ 200 mls/hr IV Q6 [facility] Stop: 02/13/21 18:16 Last Admin: 02/13/21 06:11 Dose: 200 mls/hr Documented by: Dextrose (Dextrose 5% In Water) 1,000 mls @ 150 mls/hr IV .Q6H40M [facility] Last Admin: 02/13/21 00:30 Dose: 150 mls/hr Documented by: Insulin Human Lispro (Insulin Lispro 1 Unit/0.01 Ml Unit) 0 unit SQ [facility]; Protocol Olanzapine (Olanzapine 10 Mg Vial) 10 mg IM ONCE [facility] Last Admin: 02/13/21 00:54 Dose: 10 mg Documented by: Olanzapine (Olanzapine 5 Mg Tablet) 5 mg PO HS PRN PRN Reason: Agitation Ondansetron HCl (Ondansetron 4 Mg/2 Ml Vial) 4 mg IV Q4HP PRN PRN Reason: Nausea And Vomiting Potassium Chloride (Potassium Chloride 20 Meq Tablet) 40 meq PO UD PRN PRN Reason: Potssium is 3-3.5 Potassium Chloride (Potassium Chloride 20 Meq Tablet) 40 meq PO UD PRN PRN Reason: Potassium < 3 Senna (Sennosides 1 Tablet) 2 tab PO DAILYP PRN PRN Reason: Constipation Sodium Chloride (0.9 % Sodium Chloride 10 Ml Syringe) 10 ml IV Q8 [facility] Last Admin: 02/13/21 06:10 Dose: 10 ml Documented by: A/P Narrative A/P Narrative: A: *Hyponatremia, acute on chronic: 2/2 psychogenic polydipsia *Confusion, acute on chronic: Secondary to underlying dementia and psychiatric conditions & ?metabolic disturbance, she is A&Ox4. I suspect given history that she may be more or less at baseline -at baseline *hypokalemia: *Leukocytosis: Afebrile, UA/chest x-ray unremarkable. resolved, likely reactive *Dementia w/behavioral disturbances: -CT brain with atrophy and some chronic ischemic changes *Anxiety/bipolar disorder *DM: *Hypothyroidism: check tsh, has been poorly controlled in past *HTN/HLD: *Tobacco abuse: * P: -significant discrepancy between POC and Lab sodium creating difficulty in management -given h/o rapid rise, DDAVP, d5w to stabilize rise -serial sodium check -fluid restrict -cont psych meds -cont norvasc/ARB, ASA/Statin -SSI, hold metformin for now - -ppx: Lovenox Time Spent With Patient Time: Total time spent is greater than 50% in coordination of care (as documented) at patient's floor/unit and/or counseling patient:
[2021-02-13 07:44] LABS: Hematocrit 39.7 % (36.0-48.0); Hemoglobin 13.1 g/dL (12.0-15.0); Mean Cell Volume 86.9 fL (80.0-100.0); Platelet Count 284 K/mcL (140-440); RBC 4.57 M/mcL (4.00-5.20); Red Cell Distribution Width 13.1 % (11.5-14.5); WBC 9.1 K/mcL (4.5-11.0)
[2021-02-13 08:16] LABS: Basophils % (Manual) 1 % (0-2); Lymphocytes % 29 % (15-49); Monocytes % (Manual) 12 % (1-12); Platelet Estimate NORMAL (Normal); RBC Morphology NORMAL (Normal); Segmented Neutrophils % 58 % (38-78)
[2021-02-13 08:18] LABS: ALT/SGPT 20 U/L (<40); AST/SGOT 16 U/L (<32); Albumin 4.2 gm/dL (3.2-5.2); Albumin/Globulin Ratio 1.6 (1.0-2.3); Alkaline Phosphatase 85 U/L (39-117); Bilirubin,Direct < 0.2 mg/dL (0-0.3); Bilirubin,Total 0.4 mg/dL (0.1-1.0); Blood Urea Nitrogen 11 mg/dL (8-23); Calcium 9.6 mg/dL (8.6-10.4); Carbon Dioxide 23 mmol/L (22-30); Chloride 92 mmol/L (96-108); Globulin 2.7 gm/dL (2.2-3.7); Glomerular Filtration Rate 74; Glucose 105 mg/dL (70-105); Lactate Dehydrogenase 170 U/L (135-225); Phosphorous 2.8 mg/dL (2.5-4.5); Triglycerides 79 mg/dL (<150); Uric Acid 2.8 mg/dL (2.5-8.0)
[2021-02-13] MEDS: INSULIN LISPRO 1 UNIT/0.01 ML UNIT SQ SCH ×4 (09:24→20:51)
[2021-02-13] MEDS: ENOXAPARIN 40 MG/0.4 ML SYRINGE SQ SCH (09:27)
[2021-02-13] MEDS: DOCUSATE SODIUM 100 MG CAPSULE PO SCH ×2 (09:28→20:39)
[2021-02-13 10:29] LABS: POC Blood Urea Nitrogen 10 mg/dL (6-20); POC CO2 25 mmol/L (22-30); POC Chloride 90 mEq/L (96-108); POC Creatinine 0.7 mg/dL (0.6-1.2); POC Glucose, Random 190 mg/dL (70-105); POC Hematocrit 40 % (36-48); POC Potassium 4.1 mEql/L (3.3-5.1); POC Sodium 125 mEq/L (133-145)
[2021-02-13] MEDS ORDERED: DEXTROSE 5% IN WATER 1,000 ML IV SCH ×2 (11:02→14:45)
[2021-02-13] MEDS: ACETAMINOPHEN 325 MG TABLET PO PRN (12:41)
[2021-02-13 14:32] LABS: POC Blood Urea Nitrogen 9 mg/dL (6-20); POC CO2 29 mmol/L (22-30); POC Calcium, Ionized 1.14 mmEq/L (1.16-1.32); POC Chloride 88 mEq/L (96-108); POC Creatinine 0.8 mg/dL (0.6-1.2); POC Glucose, Random 124 mg/dL (70-105); POC Hematocrit 43 % (36-48); POC Potassium 3.9 mEql/L (3.3-5.1); POC Sodium 124 mEq/L (133-145)
[2021-02-13] MEDS ORDERED: traZODone HCL 50 MG TABLET PO PRN (15:58)
[2021-02-13] MEDS ORDERED: LORazepam 1 MG TABLET PO PRN (16:01)
[2021-02-13] MEDS: amLODIPine 10 MG TABLET PO SCH (16:17)
[2021-02-13 18:20] LABS: POC Blood Urea Nitrogen 8 mg/dL (6-20); POC CO2 25 mmol/L (22-30); POC Calcium, Ionized 1.16 mmEq/L (1.16-1.32); POC Chloride 88 mEq/L (96-108); POC Creatinine 0.8 mg/dL (0.6-1.2); POC Glucose, Random 107 mg/dL (70-105); POC Hematocrit 41 % (36-48); POC Potassium 3.7 mEql/L (3.3-5.1); POC Sodium 123 mEq/L (133-145)
[2021-02-13] MEDS: ONDANSETRON 4 MG/2 ML VIAL IV PRN (19:06)
[2021-02-13] MEDS ORDERED: hydrALAZINE 20 MG/ML VIAL IV PRN (19:12)
[2021-02-13] MEDS: LOSARTAN 50 MG TABLET PO SCH (19:51)
[2021-02-13] MEDS ORDERED: NICOTINE 21 MG PATCH TOPICAL ONE (20:23)
[2021-02-13] MEDS: ASPIRIN 81 MG TAB.CHEW PO SCH (20:39)
[2021-02-13] MEDS ORDERED: QUEtiapine 100 MG TABLET PO SCH (21:00)
[2021-02-13 22:32] LABS: POC Blood Urea Nitrogen 9 mg/dL (6-20); POC CO2 23 mmol/L (22-30); POC Chloride 87 mEq/L (96-108); POC Creatinine 0.7 mg/dL (0.6-1.2); POC Glucose, Random 100 mg/dL (70-105); POC Hematocrit 40 % (36-48); POC Potassium 3.7 mEql/L (3.3-5.1); POC Sodium 129 mEq/L (133-145)
[2021-02-14 00:20] LABS: POC Blood Urea Nitrogen 9 mg/dL (6-20); POC CO2 24 mmol/L (22-30); POC Calcium, Ionized 1.24 mmEq/L (1.16-1.32); POC Chloride 89 mEq/L (96-108); POC Creatinine 0.7 mg/dL (0.6-1.2); POC Glucose, Random 95 mg/dL (70-105); POC Hematocrit 37 % (36-48); POC Potassium 3.6 mEql/L (3.3-5.1); POC Sodium 123 mEq/L (133-145)
[2021-02-14] MEDS: ACETAMINOPHEN 325 MG TABLET PO PRN (00:35)
[2021-02-14] MEDS: ONDANSETRON 4 MG/2 ML VIAL IV PRN (03:12)
[2021-02-14 03:15] LABS: POC Blood Urea Nitrogen 9 mg/dL (6-20); POC CO2 22 mmol/L (22-30); POC Calcium, Ionized 1.05 mmEq/L (1.16-1.32); POC Chloride 92 mEq/L (96-108); POC Creatinine 0.8 mg/dL (0.6-1.2); POC Glucose, Random 100 mg/dL (70-105); POC Hematocrit 40 % (36-48); POC Potassium 3.8 mEql/L (3.3-5.1); POC Sodium 122 mEq/L (133-145)
[2021-02-14] MEDS: 0.9 % SODIUM CHLORIDE 10 ML SYRINGE IV SCH ×3 (05:49→21:30)
[2021-02-14 07:15] LABS: Blood Urea Nitrogen 9 mg/dL (8-23); Calcium 9.7 mg/dL (8.6-10.4); Carbon Dioxide 23 mmol/L (22-30); Chloride 90 mmol/L (96-108); Glomerular Filtration Rate 74; Glucose 99 mg/dL (70-105)
[2021-02-14] MEDS ORDERED: LEVOTHYROXINE 150 MCG TABLET PO SCH (07:30)
--- NOTE | 2021-02-14 07:36 | Internal Med Progress Note ---
SUBJECTIVE Subjective Patient information: Note initiated : 02/14/21 at 7:32 am Service Date, if different from initiated Date: [] Patient: Cynthia Kirby 70 y/o F admitted on 02/12/21 for confusion. Chief Complaint: [] Interval history: History of present illness: Ms. Kirby is a 70 year old F Brought in today by EMS whom she has called multiple times for eating please help me over and over. And repeating that she wants to go home. Sounds like per history she gets agitated and fanatical seems when her son is out. In the ED she had a work-up which revealed a sodium of 115. 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 CT brain per ED provider was unremarkable. She did have a leukocytosis of 14 but was afebrile. And denies objective fevers and chills. Chest x-ray and urinalysis pending. She has an underlying psychiatric issues and follows with a psychiatrist. She was started on normal saline in the ED. 02/13 Occasional headaches but mild. Some nausea but no vomiting. Otherwise no complaints. 02/14 Restless night. Fixates things such as her phone or water intake. Sodium POC labs fluctuate wildly. Review of Systems: denies fever/chills/vomiting/chest or abdominal pain/cough/dyspnea/diarrhea. Otherwise see above. Constitutional Vitals: Vital Signs Temp Pulse Resp BP Pulse Ox 97.6 F 95 H 18 172/97 97 02/14/21 04:01 02/14/21 06:20 02/14/21 04:01 02/14/21 06:20 02/14/21 06:20 Period Temp Pulse Resp BP Sys/Norris Pulse Ox Last 24 Hr 97.6 F-98.4 F 64-95 15-20 121-197/69-110 95-100 Intake and Output 02/13/21 02/14/21 02/14/21 21:59 05:59 13:59 Intake Total 848.25 533 Output Total 450 200 Balance 398.25 333 Weight 86.545 kg Intake & Output: Intake & Output 02/13/21 02/14/21 02/14/21 21:59 05:59 13:59 Intake Total 848.25 533 Output Total 450 200 Balance 398.25 333 Weight 86.545 kg Intake: IV 528.25 53 Ddavp 1 Mcg In Sodium Chloride 50.25 0.9% 50 ml @ 200 mls/hr IV Q6 YG Rx#:[id number] Dextrose 5% in Water 1,000 ml @ 478 150 mls/hr IV .[id number] YG Rx#: [id number] Sodium Chloride 3% 500 ml @ 20 53 mls/hr IV ONCE YG Rx#: [id number] Oral 320 480 Output: Void Amount 450 200 Other: Meal Dinner Percent of Meal Consumed 100% Urine Appearance Clear Clear Urine Color Pale Dark Yellow Exam: General: Alert, Awake, No acute Distress Eyes/N/T: EOMI, Head/Neck: neck supple, CV: RRR, No murmurs, Pulm: Clear b/l, no wheezing/rhonchi/rales Abd: soft, nontender, +BS x4 Ext: no clubbing/cyanosis/edema Neuro: Alert, no focal deficits, moves all extremities, Skin: warm/dry OBJ DATA Labs CBC & Chem 7: 02/13/21 06:12 02/14/21 05:52 Labs: Abnormal Lab Results 02/14/21 02/14/21 02/14/21 05:52 03:06 00:12 WBC POC Hct Absolute Neutrophils POC Sodium 122 L 123 L Sodium 123 L POC Potassium Potassium POC Chloride 92 L 89 L Chloride 90 L Carbon Dioxide POC Total CO2 Glucose POC Glucose Osmolality Calcium POC WB Ioniz Calcium 1.05 L TSH Free T4 Urine Glucose (UA) Epithelial Casts Urine Osmolality 02/13/21 02/13/21 02/13/21 22:20 18:06 14:16 WBC POC Hct Absolute Neutrophils POC Sodium 129 L 123 L 124 L Sodium POC Potassium Potassium POC Chloride 87 L 88 L 88 L Chloride Carbon Dioxide POC Total CO2 Glucose POC Glucose 107 H 124 H Osmolality Calcium POC WB Ioniz Calcium 1.14 L TSH Free T4 Urine Glucose (UA) Epithelial Casts Urine Osmolality 02/13/21 02/13/21 02/13/21 10:14 06:12 06:12 WBC POC Hct Absolute Neutrophils POC Sodium 125 L 127 L Sodium 125 L POC Potassium Potassium POC Chloride 90 L 93 L Chloride 92 L Carbon Dioxide POC Total CO2 Glucose POC Glucose 190 H 113 H Osmolality Calcium POC WB Ioniz Calcium TSH Free T4 Urine Glucose (UA) Epithelial Casts Urine Osmolality 02/13/21 02/12/21 02/12/21 02:03 22:13 22:13 WBC POC Hct 31 L Absolute Neutrophils POC Sodium 126 L 129 L Sodium 124 L POC Potassium 2.8 L* Potassium 2.8 L* POC Chloride 92 L 95 L Chloride 94 L Carbon Dioxide 21 L POC Total CO2 21 L Glucose 59 L POC Glucose 212 H 62 L Osmolality 258 L Calcium 7.6 L POC WB Ioniz Calcium 1.05 L TSH 19.37 H Free T4 0.86 L Urine Glucose (UA) Epithelial Casts Urine Osmolality 02/12/21 02/12/21 02/12/21 20:35 19:55 19:55 WBC 14.0 H POC Hct Absolute Neutrophils 10.71 H POC Sodium Sodium 115 L* POC Potassium Potassium POC Chloride Chloride 83 L Carbon Dioxide POC Total CO2 Glucose 199 H POC Glucose Osmolality Calcium POC WB Ioniz Calcium TSH Free T4 Urine Glucose (UA) 150 A Epithelial Casts 1 H Urine Osmolality 02/12/21 19:45 WBC POC Hct Absolute Neutrophils POC Sodium Sodium POC Potassium Potassium POC Chloride Chloride Carbon Dioxide POC Total CO2 Glucose POC Glucose Osmolality Calcium POC WB Ioniz Calcium TSH Free T4 Urine Glucose (UA) Epithelial Casts Urine Osmolality 74 L Meds: Medications Acetaminophen (Acetaminophen 325 Mg Tablet) 650 mg PO Q6HP PRN PRN Reason: PAIN/FEVER > 101 Last Admin: 02/14/21 00:35 Dose: 650 mg Documented by: Albuterol/Ipratropium (Ipratropium/Albuterol 3 Ml Ampul.Neb) 3 ml NEB Q4HP PRN PRN Reason: Shortness Of Breath Amlodipine Besylate (Amlodipine 10 Mg Tablet) 10 mg PO DAILY [facility] Last Admin: 02/13/21 16:17 Dose: 10 mg Documented by: Aspirin (Aspirin 81 Mg Tab.Chew) 81 mg PO BID [facility] Last Admin: 02/13/21 20:39 Dose: 81 mg Documented by: Atorvastatin Calcium (Atorvastatin 40 Mg Tablet) 40 mg PO QDAY [facility] Dextrose (Dextrose 50% 50 Ml Vial) 0 ml IV UD PRN PRN Reason: Hypoglycemia Diagnostic Test (Pha) (Accu-Chek 1 Each Strip) 1 each FS ACHS [facility] Last Admin: 02/13/21 20:51 Dose: 1 each Documented by: Docusate Sodium (Docusate Sodium 100 Mg Capsule) 100 mg PO BID [facility] Last Admin: 02/13/21 20:39 Dose: 100 mg Documented by: Enoxaparin Sodium (Enoxaparin 40 Mg/0.4 Ml Syringe) 40 mg SQ DAILY [facility] Last Admin: 02/13/21 09:27 Dose: 40 mg Documented by: Glucose (Dextrose 31 Gm Oral.Susp) 15 gm PO PRN PRN PRN Reason: Hypoglycemia Hydralazine HCl (Hydralazine 20 Mg/Ml Vial) 0 mg IV Q2HP PRN PRN Reason: Hypertension Potassium Chloride 40 meq/ (Dextrose) 520 mls @ 130 mls/hr IV UD PRN PRN Reason: Potassium < 3 Magnesium Sulfate (Magnesium Sulfate) 2 gm in 50 mls @ 50 mls/hr IV UD PRN PRN Reason: Magnesium </= 1.6 Sodium Chloride (Sodium Chloride 3%) 500 mls @ 20 mls/hr IV ONCE YG Stop: 02/14/21 19:14 Last Infusion: 02/14/21 03:30 Dose: 20 mls/hr Documented by: Insulin Human Lispro (Insulin Lispro 1 Unit/0.01 Ml Unit) 0 unit SQ ACHS [facility]; Protocol Last Admin: 02/13/21 20:51 Dose: Not Given Documented by: Lamotrigine (Lamotrigine 100 Mg Tablet) 150 mg PO DAILY YG Levothyroxine Sodium (Levothyroxine 150 Mcg Tablet) 150 mcg PO QAMAC YG Lorazepam (Lorazepam 1 Mg Tablet) 1 mg PO DAILYP PRN PRN Reason: Anxiety Last Admin: 02/13/21 16:17 Dose: 1 mg Documented by: Losartan Potassium (Losartan 50 Mg Tablet) 100 mg PO DAILY [facility] Last Admin: 02/13/21 19:51 Dose: 100 mg Documented by: Nicotine (Nicotine 21 Mg Patch) 21 mg TOPICAL DAILY@1000 YG Olanzapine (Olanzapine 5 Mg Tablet) 5 mg PO HS PRN PRN Reason: Agitation Last Admin: 02/13/21 20:38 Dose: 5 mg Documented by: Ondansetron HCl (Ondansetron 4 Mg/2 Ml Vial) 4 mg IV Q4HP PRN PRN Reason: Nausea And Vomiting Last Admin: 02/14/21 03:12 Dose: 4 mg Documented by: Linaclotide [Linzess (] 290 Mcg Capsule) 290 dose PO QDAY [facility] Potassium Chloride (Potassium Chloride 20 Meq Tablet) 40 meq PO UD PRN PRN Reason: Potssium is 3-3.5 Potassium Chloride (Potassium Chloride 20 Meq Tablet) 40 meq PO UD PRN PRN Reason: Potassium < 3 Quetiapine Fumarate (Quetiapine 100 Mg Tablet) 400 mg PO HS [facility] Last Admin: 02/13/21 20:43 Dose: 400 mg Documented by: Quetiapine Fumarate (Quetiapine 100 Mg Tablet) 200 mg PO DAILY YG Senna (Sennosides 1 Tablet) 2 tab PO DAILYP PRN PRN Reason: Constipation Sodium Chloride (0.9 % Sodium Chloride 10 Ml Syringe) 10 ml IV Q8 YG Last Admin: 02/14/21 05:49 Dose: 10 ml Documented by: Trazodone HCl (Trazodone Hcl 50 Mg Tablet) 50 mg PO QHS PRN PRN Reason: Insomnia Last Admin: 02/13/21 20:39 Dose: 50 mg Documented by: A/P Narrative A/P Narrative: A: *Hyponatremia, acute on chronic: 2/2 psychogenic polydipsia *Confusion more likely chronic than acute per history: Secondary to underlying dementia and psychiatric conditions: -she is A&Ox4. -at baseline *hypokalemia: resolved *Leukocytosis: Afebrile, UA/chest x-ray unremarkable. resolved, likely reactive *Dementia w/behavioral disturbances: -CT brain with atrophy and some chronic ischemic changes *Anxiety/bipolar disorder: *DM: *Hypothyroidism: check tsh, has been poorly controlled in past *HTN/HLD: *Tobacco abuse: * P: -significant discrepancy between POC and Lab sodium and wild fluctuations creates difficulty in management -given h/o rapid rise, DDAVP/3%, was on d5w to stabilize rise -serial sodium check -fluid restrict -cont psych meds -cont norvasc/ARB, ASA/Statin -SSI, hold metformin for now - -ppx: Lovenox Time Spent With Patient Time: Total time spent is greater than 50% in coordination of care (as docu mented) at patient's floor/unit and/or counseling patient:
[2021-02-14] MEDS: INSULIN LISPRO 1 UNIT/0.01 ML UNIT SQ SCH ×4 (07:39→19:28)
[2021-02-14] MEDS ORDERED: LORazepam 1 MG TABLET PO PRN (08:25)
[2021-02-14] MEDS: DOCUSATE SODIUM 100 MG CAPSULE PO SCH ×3 (08:44→19:27)
[2021-02-14] MEDS: LOSARTAN 50 MG TABLET PO SCH ×2 (08:44→09:05)
[2021-02-14] MEDS: ENOXAPARIN 40 MG/0.4 ML SYRINGE SQ SCH ×2 (08:45→09:06)
[2021-02-14] MEDS: amLODIPine 10 MG TABLET PO SCH ×2 (08:45→09:06)
[2021-02-14] MEDS: ASPIRIN 81 MG TAB.CHEW PO SCH ×3 (08:45→19:25)
[2021-02-14] MEDS ORDERED: SODIUM CHLORIDE 3 % 500 ML IV SCH ×2 (08:50→10:45)
[2021-02-14] MEDS ORDERED: ACETAMINOPHEN 325 MG TABLET PO PRN (08:50)
[2021-02-14] MEDS ORDERED: ONDANSETRON 4 MG/2 ML VIAL IV PRN (08:50)
[2021-02-14] MEDS ORDERED: IPRATROPIUM/ALBUTEROL 3 ML AMPUL.NEB NEB PRN (08:50)
[2021-02-14] MEDS ORDERED: DEXTROSE 50% 50 ML VIAL IV PRN (08:50)
[2021-02-14] MEDS ORDERED: hydrALAZINE 20 MG/ML VIAL IV PRN (08:50)
[2021-02-14] MEDS ORDERED: POTASSIUM CHLORIDE 40 MEQ in DEXTROSE 5% IN WATER 500 ML IV PRN (08:50)
[2021-02-14] MEDS ORDERED: DEXTROSE 31 GM ORAL.SUSP PO PRN (08:50)
[2021-02-14] MEDS ORDERED: POTASSIUM CHLORIDE 20 MEQ TABLET PO PRN ×2 (08:50)
[2021-02-14] MEDS ORDERED: OLANZapine 5 MG TABLET PO PRN (08:50)
[2021-02-14] MEDS ORDERED: MAGNESIUM SULFATE 2 GM/50 ML BAG IV PRN (08:50)
[2021-02-14] MEDS ORDERED: traZODone HCL 50 MG TABLET PO PRN (08:50)
[2021-02-14] MEDS ORDERED: SENNOSIDES 1 TABLET PO PRN (08:50)
[2021-02-14] MEDS ORDERED: LOSARTAN 50 MG TABLET PO SCH (09:00)
[2021-02-14] MEDS ORDERED: lamoTRIgine 100 MG TABLET PO SCH (09:00)
[2021-02-14] MEDS ORDERED: QUEtiapine 100 MG TABLET PO SCH ×2 (09:00→21:00)
[2021-02-14] MEDS ORDERED: ATORVASTATIN 40 MG TABLET PO SCH (09:00)
[2021-02-14] MEDS: ATORVASTATIN 40 MG TABLET PO SCH (09:05)
[2021-02-14] MEDS: lamoTRIgine 100 MG TABLET PO SCH (09:05)
[2021-02-14] MEDS: QUEtiapine 100 MG TABLET PO SCH (09:06)
[2021-02-14] MEDS ORDERED: NICOTINE 21 MG PATCH TOPICAL SCH (10:00)
[2021-02-14 10:16] LABS: POC Blood Urea Nitrogen 9 mg/dL (6-20); POC CO2 23 mmol/L (22-30); POC Calcium, Ionized 1.24 mmEq/L (1.16-1.32); POC Chloride 91 mEq/L (96-108); POC Creatinine 0.9 mg/dL (0.6-1.2); POC Glucose, Random 137 mg/dL (70-105); POC Hematocrit 42 % (36-48); POC Potassium 3.9 mEql/L (3.3-5.1); POC Sodium 125 mEq/L (133-145)
--- NOTE | 2021-02-14 10:24 | Discharge Summary ---
Discharge Provider Provider Patient information: Note initiated : 02/14/21 at 10:23 am Service Date, if different from initiated Date: [] Patient: Cynthia Kirby 70 y/o F admitted on 02/12/21 for confusion. Chief Complaint: [] Date of admission: 02/12/21 23:55 Discharge date: 02/15/21 Primary care physician: Hailey Denis Consults: 02/12/21 21:57 Consult to Physician [CONS] Stat Comment: Consulting Provider: Melquiades Post Reason For Exam: Physician to Consult Discharge Meds Discharge Medications Home Medications lamotrigine 150 mg PO DAILY 06/09/18 [History Confirmed 02/13/21 Last Taken 02/19/20 09:00] lorazepam 1 mg PO DAILY 06/09/18 [History Confirmed 02/13/21 Last Taken 02/19/20 12:00] quetiapine 400 mg PO HS 06/10/18 [History Confirmed 02/13/21 Last Taken 02/18/20 21:00] amlodipine 10 mg PO DAILY 05/25/19 [History Confirmed 02/13/21 Last Taken 02/19/20 09:00] losartan 100 mg PO DAILY #30 tab 06/22/19 [Rx Confirmed 02/13/21 Last Taken 02/19/20 09:00] Linzess 290 mcg PO QDAY 04/25/20 [History Confirmed 02/13/21 Last Taken Unknown] aspirin [Adult Low Dose Aspirin] 81 mg PO BID 04/25/20 [History Confirmed 02/13/21 Last Taken Unknown] atorvastatin 40 mg PO QDAY 04/25/20 [History Confirmed 02/13/21 Last Taken Unknown] quetiapine 200 mg PO DAILY 11/13/20 [History Confirmed 02/13/21 Last Taken Unknown] trazodone 50 mg PO QHS PRN 11/13/20 [History Confirmed 02/13/21 Last Taken Unknown] levothyroxine [Synthroid] 137 mcg PO QDAY 01/02/21 [History Confirmed 02/13/21 Last Taken Unknown] metformin 1,000 mg PO QDAY 01/02/21 [History Confirmed 02/13/21 Last Taken Unknown] sodium chloride 2,000 mg PO BID #60 tab 01/04/21 [Rx Confirmed 02/13/21 Last Taken Unknown] COURSE Hospital Course Hospital course: Interval history: History of present illness: Ms. Young is a 70 year old F Brought in today by EMS whom she has called multiple times for eating please help me over and over. And repeating that she wants to go home. Sounds like per history she gets agitated and fanatical seems when her son is out. In the ED she had a work-up which revealed a sodium of 115. 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 CT brain per ED provider was unremarkable. She did have a leukocytosis of 14 but was afebrile. And denies objective fevers and chills. Chest x-ray and urinalysis pending. She has an underlying psychiatric issues and follows with a psychiatrist. She was started on normal saline in the ED. 02/13 Occasional headaches but mild. Some nausea but no vomiting. Otherwise no complaints. 02/14 Restless night. Fixates things such as her phone or water intake. Sodium POC labs fluctuate wildly. 02/15 Doing well. Sodium stable. Fluid restrict continue. *Patient high risk for risk for readmission given underlying psychiatric conditions and dementia A: *Hyponatremia, acute on chronic: 2/2 psychogenic polydipsia *Confusion more likely chronic than acute per history: Secondary to underlying dementia and psychiatric conditions: -she is A&Ox4. -at baseline *hypokalemia: resolved *Leukocytosis: Afebrile, UA/chest x-ray unremarkable. resolved, likely reactive *Dementia w/behavioral disturbances: -CT brain with atrophy and some chronic ischemic changes *Anxiety/bipolar disorder: *DM: *Hypothyroidism: check tsh, has been poorly controlled in past *HTN/HLD: *Tobacco abuse: Discharge diagnosis: Hyponatremia psychosis electrolyte abnormalities dementia anxiety bipolar Secondary discharge diagnosis: Diabetes hypothyroidism tobacco abuse hypertension Time Spent with Patient Time attestation: Total time spent providing and/or coordinating discharge services: Time spent: Greater than 30 minutes EXAM Constitutional Vitals: Temp Pulse Resp BP Pulse Ox 98.1 F 86 18 171/105 99 02/14/21 08:05 02/14/21 09:03 02/14/21 04:01 02/14/21 08:05 02/14/21 09:03 Discharge Data Data Completed and Pending Labs on day of discharge: Labs from last 24 hours 04/02/14/21 02/14/21 10:04 05:52 03:06 POC Hct 42 40 POC Sodium 125 L 122 L Sodium 123 L POC Potassium 3.9 3.8 Potassium 3.8 POC Chloride 91 L 92 L Chloride 90 L Carbon Dioxide 23 POC Total CO2 23 22 Anion Gap 10.0 POC BUN 9 9 BUN 9 Creatinine 0.8 POC Creatinine 0.9 0.8 GFR Calculation 74 Glucose 99 POC Glucose 137 H 100 Calcium 9.7 POC WB Ioniz Calcium 1.24 1.05 L 02/14/21 02/13/21 02/13/21 00:12 22:20 18:06 POC Hct 37 40 41 POC Sodium 123 L 129 L 123 L Sodium POC Potassium 3.6 3.7 3.7 Potassium POC Chloride 89 L 87 L 88 L Chloride Carbon Dioxide POC Total CO2 24 23 25 Anion Gap POC BUN 9 9 8 BUN Creatinine POC Creatinine 0.7 0.7 0.8 GFR Calculation Glucose POC Glucose 95 100 107 H Calcium POC WB Ioniz Calcium 1.24 1.20 1.16 02/13/21 02/13/21 14:16 10:14 POC Hct 43 40 POC Sodium 124 L 125 L Sodium POC Potassium 3.9 4.1 Potassium POC Chloride 88 L 90 L Chloride Carbon Dioxide POC Total CO2 29 25 Anion Gap POC BUN 9 10 BUN Creatinine POC Creatinine 0.8 0.7 GFR Calculation Glucose POC Glucose 124 H 190 H Calcium POC WB Ioniz Calcium 1.14 L 1.20 Discharge Plan Patient/Caregiver Discharge Instructions Activity: increase activity as tolerated Diet: Regular Diet Instructions: Hyponatremia (GEN), Fluid Restriction (GEN), Anxiety (GEN) Activity Restrictions/Additional Instructions: 2000ml fluid restriction per day. This discharge packet is provided to you to help keep you informed about your care. We want to ensure you get everything you need when you go home. You will also be receiving a call from us in a few days to follow up with you and see how you are doing since your discharge. This gives us a chance to listen to any concerns you maybe experiencing since you were discharged or any additional needs you may have, as well as providing us feedback on your care experience. We strive to always provide excellent care and thank you for your feedback and for choosing [facility]. Prescriptions: Continued lamotrigine 200 MG tablet 150 mg PO DAILY RF: 0 lorazepam 1 MG tablet 1 mg PO DAILY RF: 0 quetiapine 100 MG tablet 400 mg PO HS RF: 0 amlodipine 10 MG tablet 10 mg PO DAILY RF: 0 losartan 100 MG tablet 100 mg PO DAILY Qty: 30 RF: 1 atorvastatin 40 mg Tablet 40 mg PO QDAY RF: 0 Linzess 290 mcg Capsule 290 mcg PO QDAY RF: 0 aspirin [Adult Low Dose Aspirin] 81 mg Tablet,Delayed Release (Dr/Ec) 81 mg PO BID RF: 0 trazodone 50 mg Tablet 50 mg PO QHS PRN (Reason: Insomnia) RF: 0 quetiapine 100 mg Tablet 200 mg PO DAILY RF: 0 levothyroxine [Synthroid] 150 mcg tablet 137 mcg PO QDAY RF: 0 metformin 500 mg Tablet Extended Release 24hr 1,000 mg PO QDAY RF: 0 sodium chloride 1,000 mg tablet,soluble 2,000 mg PO BID Qty: 60 RF: 0 Other Ambulatory Orders: Basic Metabolic Panel (Routine) Timeframe: [id number] Facility: [facility] - Location: Laboratory Ordered By: Melquiades Post Follow Up Plan Follow up with: Hailey Denis ARNP [Primary Care Provider] - 02/21/21 3:00 pm Patient Disposition: Home Health Service Prognosis: Fair Overall status at discharge: patient is progressing back to baseline Discharge Orders: Discharge Order (Routine); Ordered 02/15/21 Ordered By: Melquiades Post
[2021-02-14] MEDS: LORazepam 1 MG TABLET PO PRN ×2 (10:33→19:27)
[2021-02-14] MEDS: NICOTINE 21 MG PATCH TOPICAL SCH (10:34)
[2021-02-14 14:14] LABS: POC Blood Urea Nitrogen 10 mg/dL (6-20); POC CO2 26 mmol/L (22-30); POC Calcium, Ionized 1.19 mmEq/L (1.16-1.32); POC Chloride 91 mEq/L (96-108); POC Creatinine 1.1 mg/dL (0.6-1.2); POC Glucose, Random 113 mg/dL (70-105); POC Hematocrit 38 % (36-48); POC Potassium 3.9 mEql/L (3.3-5.1); POC Sodium 126 mEq/L (133-145)
[2021-02-14] MEDS: SODIUM CHLORIDE 1 GM TABLET PO SCH ×2 (15:39→19:27)
[2021-02-14 19:13] LABS: POC Blood Urea Nitrogen 13 mg/dL (6-20); POC CO2 24 mmol/L (22-30); POC Calcium, Ionized 1.15 mmEq/L (1.16-1.32); POC Chloride 99 mEq/L (96-108); POC Creatinine 1.2 mg/dL (0.6-1.2); POC Glucose, Random 111 mg/dL (70-105); POC Hematocrit 41 % (36-48); POC Potassium 4.1 mEql/L (3.3-5.1); POC Sodium 130 mEq/L (133-145)
[2021-02-15] MEDS: 0.9 % SODIUM CHLORIDE 10 ML SYRINGE IV SCH ×2 (03:30→04:36)
[2021-02-15 07:01] LABS: Blood Urea Nitrogen 13 mg/dL (8-23); Carbon Dioxide 26 mmol/L (22-30); Chloride 101 mmol/L (96-108); Glomerular Filtration Rate 57; Glucose 94 mg/dL (70-105)
[2021-02-15] MEDS: INSULIN LISPRO 1 UNIT/0.01 ML UNIT SQ SCH ×2 (07:11→11:01)
[2021-02-15] MEDS ORDERED: LEVOTHYROXINE 150 MCG TABLET PO SCH (07:30)
[2021-02-15] MEDS: DOCUSATE SODIUM 100 MG CAPSULE PO SCH (08:22)
[2021-02-15] MEDS: ASPIRIN 81 MG TAB.CHEW PO SCH (08:22)
[2021-02-15] MEDS: LORazepam 1 MG TABLET PO PRN (08:22)
[2021-02-15] MEDS: LOSARTAN 50 MG TABLET PO SCH (08:23)
[2021-02-15] MEDS: lamoTRIgine 100 MG TABLET PO SCH (08:23)
[2021-02-15] MEDS: amLODIPine 10 MG TABLET PO SCH (08:24)
[2021-02-15] MEDS: QUEtiapine 100 MG TABLET PO SCH (08:24)
[2021-02-15] MEDS: ATORVASTATIN 40 MG TABLET PO SCH (08:24)
[2021-02-15] MEDS: ENOXAPARIN 40 MG/0.4 ML SYRINGE SQ SCH (08:25)
[2021-02-15] MEDS: NICOTINE 21 MG PATCH TOPICAL SCH (09:44)
== END 2021-02-15 12:55 | disposition home health service (06) | DRG 641 ==
LOC: ED 19:33 → ICU 23:55 → MEDSUR 02-14 11:04
PROVIDERS: ADMIT Internal Medicine; ATTEND Internal Medicine

== ENCOUNTER 2022-05-09 17:02 | Inpatient (IN) ==
--- NOTE | 2022-05-09 18:22 | Emergency Department Note ---
Dizziness HPI General Chief Complaint: Dizziness Stated Complaint: Dizzy Time Seen by Provider: 05/09/22 18:03 Source: EMS Mode of arrival: EMS History of Present Illness HPI Narrative: 72-year-old female well-known to emergency department with history of T2DM, recurrent falls, chronic hyponatremia, bipolar disorder, suicidal ideation, an xiety, and behavioral problems presents to the ER with complaints of dizziness. Patient has self-care deficits at home and currently has a guardianship with plans for her to be placed at a skilled facility near [place]. Patient has left AMA from skilled facilities in the past, now with ongoing placement challenges. Patient is poor historian and is not able to give me a good review of systems. She is incontinent of urine and stating "I have to poop." Related Data Home Medications Medication Instructions Recorded Confirmed lamotrigine 200 mg tablet 150 mg PO DAILY 06/09/18 02/11/22 lorazepam 1 mg tablet 1 mg PO DAILY 06/09/18 02/11/22 quetiapine 100 mg tablet 400 mg PO HS 06/10/18 02/11/22 amlodipine 10 mg tablet 10 mg PO DAILY 05/25/19 02/11/22 aspirin 81 mg tablet,delayed 81 mg PO BID 04/25/20 02/11/22 release (Adult Low Dose Aspirin) atorvastatin 40 mg tablet 40 mg PO QDAY 04/25/20 02/11/22 linaclotide 290 mcg capsule 290 mcg PO QDAY 04/25/20 02/11/22 (Linzess) quetiapine 100 mg tablet 200 mg PO DAILY 11/13/20 02/11/22 trazodone 50 mg tablet 50 mg PO QHS PRN Insomnia 11/13/20 02/11/22 levothyroxine 150 mcg tablet 137 mcg PO QDAY 01/02/21 02/11/22 (Synthroid) metformin 500 mg tablet,extended 1,000 mg PO QDAY 01/02/21 02/11/22 release 24hr acetazolamide 250 mg tablet 250 mg PO QDAY 10/24/21 02/11/22 clonazepam 1 mg tablet 1 mg PO BID 10/24/21 02/11/22 gabapentin 300 mg capsule 300 mg PO BID 10/24/21 02/11/22 quetiapine 400 mg tablet 400 mg PO QHS 10/24/21 02/11/22 Previous Rx's Medication Instructions Recorded losartan 100 mg tablet 100 mg PO DAILY #30 tabs 06/22/19 sodium chloride 1,000 mg soluble 2,000 mg PO BID #60 tabs 01/04/21 tablet hydrocodone 5 mg-acetaminophen 325 1 tab PO Q8H PRN pain #10 tabs 01/01/22 mg tablet docusate sodium 100 mg capsule 100 mg PO BID #60 caps 01/07/22 hydrocodone 10 mg-acetaminophen 1 - 2 tab PO Q4H PRN pain #75 tabs 01/07/22 325 mg tablet Allergies Allergy/AdvReac Type Severity Reaction Status Date / Time Penicillins Allergy Severe Swelling Verified 05/09/22 17:15 of Throat bee venom protein (honey bee) Allergy Unknown Swelling Verified 05/09/22 17:15 Review of Systems ROS ROS Narrative: Narrative: Limitations: ROS unobtainable due to patients medical condition [facility] Narrative Patient History Narrative: Narrative: Medical/Surgical/Family History All Active Problems (Updated 05/09/22 @ 20:21 by Nicki London PA-C) Fracture of left shoulder (Acute) Chronic hyponatremia (Acute) Recurrent falls (Acute) Falls frequently (Acute) Chronic hyponatremia (Acute) UTI (urinary tract infection) (Acute) Atrial fibrillation (Acute) Anxiety (Acute) Chronic hyponatremia (Acute) Threatening suicide (Acute) Hyponatremia (Acute) Altered mental status (Acute) Pain in right hip (Acute) Osteoarthritis of right hip (Acute) Pain in left hip (Acute) Osteoarthritis of left hip (Acute) Lumbar spondylosis (Chronic) Osteoarthritis of hips, bilateral (Chronic) Bilateral hip pain (Chronic) Chronic pain (Chronic) Pain of both hip joints (Chronic) Tobacco dependence syndrome (Chronic) Vaginal pain (Chronic) Polyuria (Chronic) Urinary incontinence (Chronic) Body mass index exceeds 30 (Chronic) Chronic vaginitis (Chronic) Chronic obstructive lung disease (Chronic) At risk for falls (Chronic) Muscle weakness (Chronic) Chronic kidney disease, stage 3 (Chronic) Frontotemporal dementia (Chronic) Lumbar radiculopathy (Chronic) Suicidal ideation (Chronic) Acute anxiety (Chronic) SASKIA (generalized anxiety disorder) (Chronic) Manipulative behavior (Chronic) AMS (altered mental status) (Chronic) Psychogenic polydipsia (Chronic) Acute hyponatremia (Chronic) Acute urinary retention (Chronic) Leukocytosis (Chronic) Altered level of consciousness (Chronic) Acute delirium (Chronic) Osteoarthritis of left knee (Chronic) Hip arthritis (Chronic) Hepatitis (Chronic) Dizziness (Chronic) Polydipsia (Chronic) Peptic ulcer disease (Chronic) Hypokalemia (Chronic) Hyponatremia (Chronic) Anxiety (Chronic) Acute anxiety (Chronic) Panic disorder (Chronic) Altered mental status (Chronic) Psychogenic polydipsia (Chronic) Hypochloremia (Chronic) Cigarette smoker (Chronic) Diabetes mellitus type 2, controlled (Chronic) Alzheimer's disease (Chronic) Bipolar disorder (Chronic) Elevated serum GGT level (Chronic) Hypertension, essential (Chronic) Hyperlipidemia (Chronic) Hypothyroidism (acquired) (Chronic) Obesity (Chronic) Constipation (Chronic) Vitamin D deficiency (Chronic) Osteoporosis (Chronic) Osteopenia (Chronic) Anxiety about health (Chronic) Cognitive dysfunction (Chronic) Depression (Chronic) Medical History Abdominal pain Acute anxiety Acute anxiety Acute cystitis with hematuria Acute dehydration Altered mental status Alzheimer's disease Ankle fracture Anxiety Anxiety Anxiety about health At risk for falls Bilateral hip pain Bimalleolar fracture of right ankle Bipolar disorder Body mass index exceeds 30 Chronic kidney disease, stage 3 Chronic obstructive lung disease Chronic pain Chronic vaginitis Cigarette smoker Cognitive dysfunction Constipation 05/27/16; 05/16/18; Cough Depression Diabetes mellitus type 2, controlled Elevated lactic acid level Elevated serum GGT level Encephalopathy acute Episode of generalized weakness Flea bite Foot pain, right Frontotemporal dementia Hyperlipidemia Hypertension, essential Hypochloremia Hypokalemia Hyponatremia Hyponatremia with excess extracellular fluid volume Hypothyroidism (acquired) Lumbar radiculopathy Lumbar spondylosis Muscle weakness Nausea & vomiting Obesity Osteoarthritis of hips, bilateral Osteopenia Osteoporosis Pain of both hip joints Panic disorder Peptic ulcer disease Polydipsia Polyuria Psychogenic polydipsia Rectal pain Schwannoma (02/06/12) Ear Seborrhea Sepsis Tobacco dependence syndrome Urinary incontinence Urinary tract infection UTI (urinary tract infection) Vaginal candidiasis Vaginal pain Vitamin D deficiency Yeast infection Surgical History H/O colonoscopy (12/15/17) 11/15/14, 08/23/2015 History of appendectomy (~10/11/98) History of hip surgery (~2019) Closed reduction of fracture of hip-R S/P ORIF (open reduction internal fixation) fracture Right trimalleolur ORIF with syndesmosis fixation, due to fracture S/P LIZETH-BSO (~10/11/98) Family History Mother , age: 79 Arthritis Essential hypertension Pulmonary emphysema Father , age: 68 Myocardial Infarction Unknown Chronic obstructive pulmonary disease Social History Smoking Status: Current some day smoker Alcohol Intake Frequency: does not drink Substance Use: does not use Exam Narrative Narrative: General: AOx3, NAD, nontoxic appearing. Pleasant and conversant. HEENT: PERRL, EOMI not adequately evaluated as patient is not able to cooperate with the exam. Head is normocephalic. Moist mucous membranes. Normal facies and normal dentition. Respiratory: Lungs clear to auscultation bilaterally. No respiratory distress. Unlabored breathing. Heart: Regular rate and rhythm, no murmurs/clicks/rubs. Abdomen: Non-tender, Non distended, normal bowel tones. No organomegaly. Extremities: Warm and well perfused. No edema. DP 2+ bilaterally. No venous stasis. Neuro: No focal deficits. Cranial nerves II-XII grossly normal. Skin: Warm dry, no rashes or lesions, no cyanosis. Psych: Normal mood and affect Heme/Lymph: No abnormal bruising Course Course Course Narrative: 72-year-old female presents with complaints of dizziness and altered mental status Reevaluation(s) Reevaluation #1: Obtain basic labs, UA if possible, EKG Reevaluation #2: EKG shows sinus rhythm with a rate of 80 bpm, and is a bit hard to interpret given significant motion artifact. There are no acute ST changes to suggest ischemia. She does have 1 PAC. Chem-8 with a sodium of 120 and hematocrit of 48. Per chart review previous serum sodiums have ranged between 123-132. UA was not obtained secondary to incontinence. Vital Signs Vital signs: Vital Signs Temperature 97.2 F 05/09/22 17:10 Pulse Rate 95 H 05/09/22 17:10 Respiratory Rate 18 05/09/22 17:10 Blood Pressure 153/92 05/09/22 17:10 Pulse Oximetry (%) 97 05/09/22 17:10 Oxygen Delivery Method 05/09/22 17:10 Temperature 97.2 F 05/09/22 17:10 Pulse Rate 88 05/09/22 20:05 Respiratory Rate 18 05/09/22 17:10 Blood Pressure 172/113 05/09/22 20:05 Pulse Oximetry (%) 99 05/09/22 20:05 Oxygen Delivery Method 05/09/22 17:10 MDM MDM Narrative Medical decision making narrative: Hyponatremia I reached out for an admission bed for the patient's hyponatremia and confusion. I have signed the patient out to Dr. Millan at change of shift. Please see his note for further details and plan of care. Placement is pending a [facility] facility in [place] per case management report. She allegedly has a bed in the next 2 to 3 days. Lab Data Result diagrams: 05/09/22 19:29 Labs: Lab Results 05/09/22 Range/Units 19:33 POC Hct 48.0 (36-48) POC Sodium 120 L (133-145) POC Potassium 3.4 (3.3-5.1) POC Chloride 94 L (96-108) POC Total CO2 16.0 L (22-30) POC BUN 10 (6-20) POC Creatinine 0.7 (0.6-1.2) POC Glucose 120 H (70-105) POC WB Ioniz Calcium 1.09 L (1.16-1.32) Discharge Plan Patient/Caregiver Discharge Instructions Pt seen by CONTOUR PATH TAPE MILL OPERATOR/PA only: Yes Clinical Impression: Hyponatremia, Altered mental status Patient Disposition: Still a Patient Follow up with: Hailey Denis ARNP [Primary Care Provider] - Prescriptions: No Action clonazepam 1 mg tablet 1 mg PO BID quetiapine 400 mg tablet 400 mg PO QHS gabapentin 300 mg capsule 300 mg PO BID acetazolamide 250 mg tablet 250 mg PO QDAY lamotrigine 200 MG tablet 150 mg PO DAILY lorazepam 1 MG tablet 1 mg PO DAILY Rx Instructions: Take one tablet by mouth in the afternoon daily quetiapine 100 MG tablet 400 mg PO HS amlodipine 10 MG tablet 10 mg PO DAILY losartan 100 MG tablet 100 mg PO DAILY Qty: 30 1RF atorvastatin 40 mg Tablet 40 mg PO QDAY Linzess 290 mcg Capsule 290 mcg PO QDAY aspirin [Adult Low Dose Aspirin] 81 mg Tablet,Delayed Release (Dr/Ec) 81 mg PO BID trazodone 50 mg Tablet 50 mg PO QHS PRN (Reason: Insomnia) quetiapine 100 mg Tablet 200 mg PO DAILY levothyroxine [Synthroid] 150 mcg tablet 137 mcg PO QDAY metformin 500 mg Tablet Extended Release 24hr 1,000 mg PO QDAY Rx Instructions: take two tablets by mouth once daily at dinner time sodium chloride 1,000 mg tablet,soluble 2,000 mg PO BID Qty: 60 0RF hydrocodone-acetaminophen 5-325 mg tablet 1 tab PO Q8H PRN (Reason: pain) Qty: 10 0RF docusate sodium 100 mg capsule 100 mg PO BID Qty: 60 0RF hydrocodone-acetaminophen 10-325 mg tablet 1 - 2 tab PO Q4H PRN (Reason: pain) Qty: 75 0RF
[2022-05-09] MEDS ORDERED: LORazepam 2 MG/ML VIAL IM ONE (19:02)
[2022-05-09] MEDS ORDERED: LORazepam 2 MG/ML VIAL ONE (19:09)
[2022-05-09 19:36] LABS: POC Calcium, Ionized 1.09 (1.16-1.32); POC Creatinine 0.7 (0.6-1.2); POC Potassium 3.4 (3.3-5.1)
[2022-05-09] MEDS ORDERED: 0.9 % SODIUM CHLORIDE 1,000 ML IV ONE (19:58)
--- NOTE | 2022-05-09 20:44 | Internal Med History&Physical ---
HPI History of Present Illness Patient information: Note initiated : 05/09/22 at 8:43 pm Service Date, if different from initiated Date: [] Patient: Cnythia Kirby a 72 y/o F admitted on for Dizzy. Chief Complaint: [] History of present illness: Ms. Kirby is a 72 year old F Presents ED with dizziness and lightheadedness. Patient felt like she was going to pass out. Denies any headache fever chills nausea or vomiting. Denies any chest pain or shortness of breath. She was found to have sodium of 120, she is chronically low but this is lower than her usual. 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 Patient has recent guardianship and that person has been trying to place the patient in [place] [facility] [place] facility it sounds like she will go to [place] next week. Review of Systems: Pertinent positives as above. Denies headache/fever/chills/nausea/vomiting/chest or abdominal pain/cough/dyspnea/diarrhea. Remaining 10 point review of system reviewed jim uribe [facility] All Active Problems (Updated 05/09/22 @ 20:21 by Nicki London PA-C) Fracture of left shoulder (Acute) Chronic hyponatremia (Acute) Recurrent falls (Acute) Falls frequently (Acute) Chronic hyponatremia (Acute) UTI (urinary tract infection) (Acute) Atrial fibrillation (Acute) Anxiety (Acute) Chronic hyponatremia (Acute) Threatening suicide (Acute) Hyponatremia (Acute) Altered mental status (Acute) Pain in right hip (Acute) Osteoarthritis of right hip (Acute) Pain in left hip (Acute) Osteoarthritis of left hip (Acute) Lumbar spondylosis (Chronic) Osteoarthritis of hips, bilateral (Chronic) Bilateral hip pain (Chronic) Chronic pain (Chronic) Pain of both hip joints (Chronic) Tobacco dependence syndrome (Chronic) Vaginal pain (Chronic) Polyuria (Chronic) Urinary incontinence (Chronic) Body mass index exceeds 30 (Chronic) Chronic vaginitis (Chronic) Chronic obstructive lung disease (Chronic) At risk for falls (Chronic) Muscle weakness (Chronic) Chronic kidney disease, stage 3 (Chronic) Frontotemporal dementia (Chronic) Lumbar radiculopathy (Chronic) Suicidal ideation (Chronic) Acute anxiety (Chronic) SASKIA (generalized anxiety disorder) (Chronic) Manipulative behavior (Chronic) AMS (altered mental status) (Chronic) Psychogenic polydipsia (Chronic) Acute hyponatremia (Chronic) Acute urinary retention (Chronic) Leukocytosis (Chronic) Altered level of consciousness (Chronic) Acute delirium (Chronic) Osteoarthritis of left knee (Chronic) Hip arthritis (Chronic) Hepatitis (Chronic) Dizziness (Chronic) Polydipsia (Chronic) Peptic ulcer disease (Chronic) Hypokalemia (Chronic) Hyponatremia (Chronic) Anxiety (Chronic) Acute anxiety (Chronic) Panic disorder (Chronic) Altered mental status (Chronic) Psychogenic polydipsia (Chronic) Hypochloremia (Chronic) Cigarette smoker (Chronic) Diabetes mellitus type 2, controlled (Chronic) Alzheimer's disease (Chronic) Bipolar disorder (Chronic) Elevated serum GGT level (Chronic) Hypertension, essential (Chronic) Hyperlipidemia (Chronic) Hypothyroidism (acquired) (Chronic) Obesity (Chronic) Constipation (Chronic) Vitamin D deficiency (Chronic) Osteoporosis (Chronic) Osteopenia (Chronic) Anxiety about health (Chronic) Cognitive dysfunction (Chronic) Depression (Chronic) Medical History Abdominal pain Acute anxiety Acute anxiety Acute cystitis with hematuria Acute dehydration Altered mental status Alzheimer's disease Ankle fracture Anxiety Anxiety Anxiety about health At risk for falls Bilateral hip pain Bimalleolar fracture of right ankle Bipolar disorder Body mass index exceeds 30 Chronic kidney disease, stage 3 Chronic obstructive lung disease Chronic pain Chronic vaginitis Cigarette smoker Cognitive dysfunction Constipation 05/27/16; 05/16/18; Cough Depression Diabetes mellitus type 2, controlled Elevated lactic acid level Elevated serum GGT level Encephalopathy acute Episode of generalized weakness Flea bite Foot pain, right Frontotemporal dementia Hyperlipidemia Hypertension, essential Hypochloremia Hypokalemia Hyponatremia Hyponatremia with excess extracellular fluid volume Hypothyroidism (acquired) Lumbar radiculopathy Lumbar spondylosis Muscle weakness Nausea & vomiting Obesity Osteoarthritis of hips, bilateral Osteopenia Osteoporosis Pain of both hip joints Panic disorder Peptic ulcer disease Polydipsia Polyuria Psychogenic polydipsia Rectal pain Schwannoma (02/06/12) Ear Seborrhea Sepsis Tobacco dependence syndrome Urinary incontinence Urinary tract infection UTI (urinary tract infection) Vaginal candidiasis Vaginal pain Vitamin D deficiency Yeast infection Surgical History H/O colonoscopy (12/15/17) 11/15/14, 08/23/2015 History of appendectomy (~10/11/98) History of hip surgery (~2019) Closed reduction of fracture of hip-R S/P ORIF (open reduction internal fixation) fracture Right trimalleolur ORIF with syndesmosis fixation, due to fracture S/P LIZETH-BSO (~10/11/98) Family History Mother , age: 79 Arthritis Essential hypertension Pulmonary emphysema Father , age: 68 Myocardial Infarction Unknown Chronic obstructive pulmonary disease Social History (Updated 10/16/21 @ 14:44 by Denisa Lucas) marital status: other: Children-1 smoking status: Current every day smoker alcohol intake frequency: does not drink substance use type: does not use MEDS/ALLERGIES Home Medications and Allergies Home Medications Medication Instructions Recorded Confirmed Type lamotrigine 200 mg tablet 150 mg PO DAILY 06/09/18 02/11/22 History lorazepam 1 mg tablet 1 mg PO DAILY 06/09/18 02/11/22 History quetiapine 100 mg tablet 400 mg PO HS 06/10/18 02/11/22 History amlodipine 10 mg tablet 10 mg PO DAILY 05/25/19 02/11/22 History losartan 100 mg tablet 100 mg PO DAILY #30 tabs 06/22/19 02/11/22 Rx aspirin 81 mg tablet,delayed 81 mg PO BID 04/25/20 02/11/22 History release (Adult Low Dose Aspirin) atorvastatin 40 mg tablet 40 mg PO QDAY 04/25/20 02/11/22 History linaclotide 290 mcg capsule 290 mcg PO QDAY 04/25/20 02/11/22 History (Linzess) quetiapine 100 mg tablet 200 mg PO DAILY 11/13/20 02/11/22 History trazodone 50 mg tablet 50 mg PO QHS PRN Insomnia 11/13/20 02/11/22 History levothyroxine 150 mcg tablet 137 mcg PO QDAY 01/02/21 02/11/22 History (Synthroid) metformin 500 mg tablet,extended 1,000 mg PO QDAY 01/02/21 02/11/22 History release 24hr sodium chloride 1,000 mg soluble 2,000 mg PO BID #60 tabs 01/04/21 02/11/22 Rx tablet acetazolamide 250 mg tablet 250 mg PO QDAY 10/24/21 02/11/22 History clonazepam 1 mg tablet 1 mg PO BID 10/24/21 02/11/22 History gabapentin 300 mg capsule 300 mg PO BID 10/24/21 02/11/22 History quetiapine 400 mg tablet 400 mg PO QHS 10/24/21 02/11/22 History hydrocodone 5 mg-acetaminophen 325 1 tab PO Q8H PRN pain #10 tabs 01/01/22 02/11/22 Rx mg tablet docusate sodium 100 mg capsule 100 mg PO BID #60 caps 01/07/22 02/11/22 Rx hydrocodone 10 mg-acetaminophen 1 - 2 tab PO Q4H PRN pain #75 tabs 01/07/22 02/11/22 Rx 325 mg tablet Allergies Allergy/AdvReac Type Severity Reaction Status Date / Time Penicillins Allergy Severe Swelling Verified 05/09/22 17:15 of Throat bee venom protein (honey bee) Allergy Unknown Swelling Verified 05/09/22 17:15 EXAM Constitutional Vitals: Temp Pulse Resp BP Pulse Ox O2 Del Method 97.2 F 88 18 172/113 99 05/09/22 17:10 05/09/22 20:05 05/09/22 17:10 05/09/22 20:05 05/09/22 20:05 05/09/22 17:10 Exam: General: Alert, Awake, No acute Distress, obese Eyes/N/T: EOMI, PERRL, Head/Neck: neck supple, normocephalic atraumatic CV: RRR, No murmurs, normal s1/s2 Pulm: Clear b/l, no wheezing/rhonchi/rales Abd: soft, nontender, +BS x4 Ext: no clubbing/cyanosis/edema Neuro: Alert, no focal deficits, moves all extremities, CN 2-12 grossly intact, symmetrical strength b/l upper/lower, sensations intact b/l upper/lower Skin: warm/dry DATA Data Completed and Pending Labs: Labs from last 24 hours 05/09/22 05/09/22 05/09/22 19:33 19:29 19:29 POC Hct 48.0 POC Sodium 120 L Sodium Pending POC Potassium 3.4 POC Chloride 94 L POC Total CO2 16.0 L POC BUN 10 POC Creatinine 0.7 POC Glucose 120 H Osmolality Pending Uric Acid Pending POC WB Ioniz Calcium 1.09 L A/P Narrative A/P Narrative: A: *Acute on chronic hyponatremia: -h/o psychogenic polydipsia *HTN Urgency: Elevated blood pressure in the ED. *Dementia with h/o behavioral disturbances: *Anxiety/bipolar disorder: *Metabolic acidosis: question if she is taking Diamox at home *DM: *Hypothyroidism: check tsh, has been poorly controlled in past *Tobacco abuse: *Obesity: BMI 33 * P: -Hyponatremia work-up pending including UA -monitor sodium -Fluid restrict -check tsh/cortisol -Monitor blood pressure closely -Continue psych meds -cont norvasc/ARB, ASA/Statin -SSI, hold metformin for now -Tobacco abuse >3 minutes -Home medication reconciliation -PT/OT -ppx: Lovenox Time Spent With Patient Time: Total time spent is greater than 50% in coordination of care (as documented) at patient's floor/unit and/or counseling patient: Total time spent with greater than 50% in coordination of care (as documented) at patient's floor/unit and/or counseling patient:: 50 - 70 minutes
--- NOTE | 2022-05-09 21:07 | Emergency Department Note ---
Course Course Course Narrative: I assumed care but pt was admitted to hospitalist by the midlevel. Vital Signs Vital signs: Vital Signs Temperature 97.2 F 05/09/22 17:10 Pulse Rate 95 H 05/09/22 17:10 Respiratory Rate 18 05/09/22 17:10 Blood Pressure 153/92 05/09/22 17:10 Pulse Oximetry (%) 97 05/09/22 17:10 Oxygen Delivery Method 05/09/22 17:10 Temperature 97.2 F 05/09/22 17:10 Pulse Rate 82 05/09/22 20:14 Respiratory Rate 18 05/09/22 17:10 Blood Pressure 172/113 05/09/22 20:14 Pulse Oximetry (%) 93 05/09/22 20:14 Oxygen Delivery Method 05/09/22 17:10 MDM MDM Narrative Medical decision making narrative: Narrative: Differential Diagnosis Differential Diagnosis: hyponatremia, ams Medical Records Medical records reviewed: Yes I reviewed the patient's medical records. Lab Data Lab results reviewed: Yes I reviewed the patient's lab results. Result diagrams: 05/09/22 20:42 05/09/22 19:29 Labs: Lab Results 05/09/22 Range/Units 19:33 POC Hct 48.0 (36-48) POC Sodium 120 L (133-145) POC Potassium 3.4 (3.3-5.1) POC Chloride 94 L (96-108) POC Total CO2 16.0 L (22-30) POC BUN 10 (6-20) POC Creatinine 0.7 (0.6-1.2) POC Glucose 120 H (70-105) POC WB Ioniz Calcium 1.09 L (1.16-1.32) Core Measures AMI Core Measures Followed: Yes Discharge Plan Patient/Caregiver Discharge Instructions Pt seen by FIXTURE FABRICATOR REPAIRER/PA only: Yes Clinical Impression: Hyponatremia, Altered mental status Patient Disposition: Xfer As Inpt ([facility]) Condition: Fair Follow up with: Hailey Denis ARNP [Primary Care Provider] - Prescriptions: No Action clonazepam 1 mg tablet 1 mg PO BID quetiapine 400 mg tablet 400 mg PO QHS gabapentin 300 mg capsule 300 mg PO BID acetazolamide 250 mg tablet 250 mg PO QDAY lamotrigine 200 MG tablet 150 mg PO DAILY lorazepam 1 MG tablet 1 mg PO DAILY Rx Instructions: Take one tablet by mouth in the afternoon daily quetiapine 100 MG tablet 400 mg PO HS amlodipine 10 MG tablet 10 mg PO DAILY losartan 100 MG tablet 100 mg PO DAILY Qty: 30 1RF atorvastatin 40 mg Tablet 40 mg PO QDAY Linzess 290 mcg Capsule 290 mcg PO QDAY aspirin [Adult Low Dose Aspirin] 81 mg Tablet,Delayed Release (Dr/Ec) 81 mg PO BID trazodone 50 mg Tablet 50 mg PO QHS PRN (Reason: Insomnia) quetiapine 100 mg Tablet 200 mg PO DAILY levothyroxine [Synthroid] 150 mcg tablet 137 mcg PO QDAY metformin 500 mg Tablet Extended Release 24hr 1,000 mg PO QDAY Rx Instructions: take two tablets by mouth once daily at dinner time sodium chloride 1,000 mg tablet,soluble 2,000 mg PO BID Qty: 60 0RF hydrocodone-acetaminophen 5-325 mg tablet 1 tab PO Q8H PRN (Reason: pain) Qty: 10 0RF docusate sodium 100 mg capsule 100 mg PO BID Qty: 60 0RF hydrocodone-acetaminophen 10-325 mg tablet 1 - 2 tab PO Q4H PRN (Reason: pain) Qty: 75 0RF
[2022-05-09] MEDS ORDERED: POTASSIUM CHLORIDE 40 MEQ in DEXTROSE 5% IN WATER 500 ML IV PRN (21:57)
[2022-05-09] MEDS ORDERED: IPRATROPIUM/ALBUTEROL 3 ML AMPUL.NEB NEB PRN (21:57)
[2022-05-09] MEDS ORDERED: DEXTROSE 31 GM ORAL.SUSP PO PRN (21:57)
[2022-05-09] MEDS ORDERED: POTASSIUM CHLORIDE 20 MEQ TABLET PO PRN (21:57)
[2022-05-09] MEDS ORDERED: hydrALAZINE 20 MG/ML VIAL IV PRN (21:57)
[2022-05-09] MEDS ORDERED: MAGNESIUM SULFATE 2 GM/50 ML BAG IV PRN (21:57)
[2022-05-09] MEDS ORDERED: LABETALOL 5 MG/ML ML IV PRN (21:57)
[2022-05-09] MEDS ORDERED: DEXTROSE 50% 50 ML VIAL IV PRN (21:57)
[2022-05-09] MEDS ORDERED: ONDANSETRON 4 MG/2 ML VIAL IV PRN (21:57)
[2022-05-09] MEDS ORDERED: SODIUM CHLORIDE 3% IV ONE (22:00)
[2022-05-09 22:10] LABS: Osmolality,Urine 43 mOSM/kg (80-1000)
[2022-05-09 22:23] LABS: Sodium, Urine Random 12 mmol/L
[2022-05-09] MEDS: INSULIN LISPRO 1 UNIT/0.01 ML UNIT SQ SCH (22:32)
[2022-05-09] MEDS: 0.9 % SODIUM CHLORIDE 10 ML SYRINGE IV SCH (22:33)
[2022-05-09 22:56] LABS: Basophils # (Auto) 0.05 K/mcL (0.00-0.30); Basophils % (Auto) 0.3 % (0.0-2.0); Eosinophils # (Auto) 0.05 K/mcL (0.00-0.70); Eosinophils % (Auto) 0.3 % (0.0-7.0); Hematocrit 44.1 % (34.1-44.9); Hemoglobin 14.6 g/dL (11.2-15.7); Lymphocytes # (Auto) 2.29 K/mcL (1.50-4.80); Lymphocytes % (Auto) 15.3 % (15.5-49.0); Mean Cell Volume 85.1 fL (80.0-100.0); Mean Corpuscular HGB Conc 33.1 g/dL (31.0-36.0); Mean Platelet Volume 9.6 fL (7.4-10.4); Monocytes # (Auto) 0.85 K/mcL (0.10-0.90); Monocytes % (Auto) 5.7 % (1.0-12.0); Neutrophils % (Auto) 77.7 % (38.0-78.0); Platelet Count 288 K/mcL (140-440); RBC 5.18 M/mcL (3.59-5.38); Red Cell Distribution Width 13.2 % (11.5-14.5)
[2022-05-09 23:16] LABS: Thyroid Stimulating Hormone 4.58 uIU/mL (0.27-5.01)
[2022-05-09] MEDS: OLANZapine 5 MG TABLET PO PRN (23:18)
[2022-05-09] MEDS: DOCUSATE SODIUM 100 MG CAPSULE PO SCH (23:20)
[2022-05-09 23:32] LABS: Uric Acid 2.2 mg/dL (2.5-8.0)
[2022-05-09 23:46] LABS: ALT/SGPT 29 U/L (<40); AST/SGOT 31 U/L (<32); Albumin 4.6 gm/dL (3.2-5.2); Alkaline Phosphatase 111 U/L (39-117); Bilirubin,Direct < 0.2 mg/dL (0-0.3); Bilirubin,Total 0.6 mg/dL (0.1-1.0)
[2022-05-10] MEDS: 0.9 % SODIUM CHLORIDE 10 ML SYRINGE IV SCH ×3 (06:19→20:53)
[2022-05-10 07:27] LABS: ALT/SGPT 26 U/L (<40); AST/SGOT 24 U/L (<32); Albumin 4.6 gm/dL (3.2-5.2); Albumin/Globulin Ratio 1.6 (1.0-2.3); Alkaline Phosphatase 107 U/L (39-117); Bilirubin,Direct < 0.2 mg/dL (0-0.3); Bilirubin,Total 0.6 mg/dL (0.1-1.0); Blood Urea Nitrogen 7 mg/dL (8-23); Calcium 10.5 mg/dL (8.6-10.4); Carbon Dioxide 19 mmol/L (22-30); Chloride 100 mmol/L (96-108); Globulin 2.9 gm/dL (2.2-3.7); Glomerular Filtration Rate 74; Glucose 108 mg/dL (70-105); Lactate Dehydrogenase 231 U/L (135-225); Phosphorous 2.6 mg/dL (2.5-4.5); Triglycerides 72 mg/dL (<150); Uric Acid 3.3 mg/dL (2.5-8.0)
--- NOTE | 2022-05-10 07:31 | Internal Med Progress Note ---
SUBJECTIVE Subjective Patient information: Note initiated : 05/10/22 at 7:28 am Service Date, if different from initiated Date: [] Patient: Cynthia Kirby a 72 y/o F admitted on 05/09/22 for Dizzy. Chief Complaint: [] Interval history: History of present illness: Ms. Kirby is a 72 year old F Presents ED with dizziness and lightheadedness. Patient felt like she was going to pass out. Denies any headache fever chills nausea or vomiting. Denies any chest pain or shortness of breath. She was found to have sodium of 120, she is chronically low but this is lower than her usual. 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 Patient has recent guardianship and that person has been trying to place the patient in a care home facility it sounds like she will go to [place] next week. 05/10 Patient had an episode of nausea vomiting after eating breakfast this morning. She says she typically does not eat that much. She has some occasional dizziness lightheadedness. Sodium elevated today faster than expected. We will provide some DDAVP and some hypotonic's fluid. Review of Systems: denies headache/fever/chills/chest or abdominal pain/cough/dyspnea/diarrhea. Otherwise see above. Constitutional Vitals: Vital Signs Temp Pulse Resp BP Pulse Ox O2 Del Method O2 Flow Rate 99.3 F H 80 22 136/81 96 0 05/10/22 04:01 05/10/22 06:01 05/10/22 06:01 05/10/22 06:01 05/10/22 06:01 05/10/22 03:01 05/10/22 04:01 Period Temp Pulse Resp BP Sys/Norris Pulse Ox O2 Del Method O2 Flow Rate Last 24 Hr 97.2 F-99.3 F 41-95 14-22 115-173/59-113 88-99 Room Air-Room Air 0-0 Intake and Output 05/09/22 05/10/22 05/10/22 21:59 05:59 13:59 Intake Total 1000 1185 Output Total 3500 Balance 1000 -2315 Weight 88.224 kg 88.224 kg Intake & Output: Intake & Output 05/09/22 05/10/22 05/10/22 21:59 05:59 13:59 Intake Total 1000 1185 Output Total 3500 Balance 1000 -2315 Weight 88.224 kg 88.224 kg Intake: IV 1000 75 Sodium Chloride 0.9% 1,000 ml @ 1000 Wide Open IV BOLUS ONE Rx#: [id number] Sodium Chloride 3% 75 ml @ 25 75 mls/hr IV ONCE ONE Rx#: [id number] Oral 1110 Output: Urine Catheter Amount 3500 Other: Urine Appearance Clear Clear Uretheral (Whipple) Clear Urine Color Pale Pale Uretheral (Whipple) Pale Urine Odor Uretheral (Whipple) Normal Exam: General: Alert, Awake, No acute Distress, obese Eyes/N/T: EOMI,, Head/Neck: neck supple, CV: RRR, No murmurs, Pulm: Clear b/l, no wheezing/rhonchi/rales Abd: soft, nontender, +BS x4 Ext: no clubbing/cyanosis/edema Neuro: Alert, no focal deficits, moves all extremities, Skin: warm/dry OBJ DATA Labs CBC & Chem 7: 05/09/22 20:42 05/10/22 05:04 Labs: Abnormal Lab Results 05/10/22 05/09/22 05/09/22 05:04 21:15 20:42 WBC 15.0 H Immature Gran % (Auto) 0.7 H Lymph % (Auto) 15.3 L Immature Gran # 0.10 H Absolute Neutrophils 11.74 H POC Sodium Sodium 131 L POC Chloride Carbon Dioxide 19 L POC Total CO2 BUN 7 L Glucose 108 H POC Glucose Osmolality Uric Acid Calcium 10.5 H POC WB Ioniz Calcium GGT 44 H Lactate Dehydrogenase 231 H Urine Osmolality 43 L 05/09/22 05/09/22 05/09/22 19:33 19:29 19:29 WBC Immature Gran % (Auto) Lymph % (Auto) Immature Gran # Absolute Neutrophils POC Sodium 120 L Sodium 116 L* POC Chloride 94 L Carbon Dioxide POC Total CO2 16.0 L BUN Glucose POC Glucose 120 H Osmolality 250 L Uric Acid 2.2 L Calcium POC WB Ioniz Calcium 1.09 L GGT Lactate Dehydrogenase Urine Osmolality Meds: Medications Acetaminophen (Acetaminophen 325 Mg Tablet) 650 mg PO Q6HP PRN; Protocol PRN Reason: Per Pain Protocol/Fever > 101 Albuterol/Ipratropium (Ipratropium/Albuterol 3 Ml Ampul.Neb) 3 ml NEB Q4HP PRN PRN Reason: Shortness Of Breath Dextrose (Dextrose 50% 50 Ml Vial) 0 ml IV UD PRN PRN Reason: Per Sliding Scale Diagnostic Test (Pha) (Accu-Chek 1 Each Strip) 1 each FS ACHS [facility] Last Admin: 05/09/22 22:20 Dose: 1 each Docusate Sodium (Docusate Sodium 100 Mg Capsule) 100 mg PO BID [facility] Last Admin: 05/09/22 23:20 Dose: Not Given Enoxaparin Sodium (Enoxaparin 40 Mg/0.4 Ml Syringe) 40 mg SQ DAILY [facility] Glucose (Dextrose 31 Gm Oral.Susp) 15 gm PO PRN PRN PRN Reason: Hypoglycemia Hydralazine HCl (Hydralazine 20 Mg/Ml Vial) 0 mg IV Q2HP PRN PRN Reason: Hypertension Hydroxyzine HCl (Hydroxyzine 25 Mg Tablet) 50 mg PO TIDP PRN PRN Reason: anxiety Potassium Chloride 40 meq/ (Dextrose) 520 mls @ 130 mls/hr IV UD PRN PRN Reason: Potassium < 3 Magnesium Sulfate (Magnesium Sulfate) 2 gm in 50 mls @ 50 mls/hr IV UD PRN PRN Reason: Magnesium </= 1.6 Insulin Human Lispro (Insulin Lispro 1 Unit/0.01 Ml Unit) 0 unit SQ [facility]; Protocol Last Admin: 05/09/22 22:32 Dose: Not Given Labetalol HCl (Labetalol 5 Mg/Ml Ml) 0 mg IV Q2HP PRN PRN Reason: Hypertension Olanzapine (Olanzapine 5 Mg Tablet) 5 mg PO HSP PRN PRN Reason: Agitation Last Admin: 05/09/22 23:18 Dose: 5 mg Ondansetron HCl (Ondansetron 4 Mg/2 Ml Vial) 4 mg IV Q4HP PRN PRN Reason: Nausea And Vomiting Polyethylene Glycol (Polyethylene Glycol 3350 17 Gm Packet) 17 gm PO DAILYP PRN PRN Reason: Constipation Potassium Chloride (Potassium Chloride 20 Meq Tablet) 40 meq PO UD PRN PRN Reason: Potssium is 3-3.5 Potassium Chloride (Potassium Chloride 20 Meq Tablet) 40 meq PO UD PRN PRN Reason: Potassium < 3 Senna (Sennosides 1 Tablet) 2 tab PO DAILYP PRN PRN Reason: Constipation Sodium Chloride (0.9 % Sodium Chloride 10 Ml Syringe) 10 ml IV Q8 YG Last Admin: 05/10/22 06:19 Dose: 10 ml A/P Narrative A/P Narrative: A: *Acute on chronic hyponatremia: likely psychogenic polydipsia and has h/o same *HTN Urgency: Elevated blood pressure in the ED. improved *Dementia with h/o behavioral disturbances: *Anxiety/bipolar disorder: *Metabolic acidosis: question if she is taking Diamox at home. improved *DM: *Hypothyroidism: tsh wnl *Tobacco abuse: *Obesity: BMI 33 *Inability to care for self: In the process of getting placement to a SNF P: -significant discrepancy between POC and Lab sodium and wild fluctuations creates difficulty in management -Hyponatremia work-up pending including UA -ddavp, d5w -monitor sodium -Fluid restrict -Monitor blood pressure closely -Continue psych meds -cont norvasc/ARB, ASA/Statin -SSI, hold metformin for now -Smoking cessation counseling >3 minutes -Home medication reconciliation -PT/OT -CM for placement -ppx: Lovenox Time Spent With Patient Time: Total time spent is greater than 50% in coordination of care (as documented) at patient's floor/unit and/or counseling patient: Total time spent with greater than 50% in coordination of care (as documented) at patient's floor/unit and/or counseling patient:: 35 - 50 minutes QUALITY VTE Deep Vein Thrombosis/Pulmonary Embolism Present on Admission: No
[2022-05-10] MEDS ORDERED: DEXTROSE 5% IN WATER 300 ML IV ONE (07:33)
[2022-05-10] MEDS: DOCUSATE SODIUM 100 MG CAPSULE PO SCH ×2 (07:38→20:11)
[2022-05-10] MEDS: INSULIN LISPRO 1 UNIT/0.01 ML UNIT SQ SCH ×4 (07:38→20:54)
[2022-05-10] MEDS ORDERED: LORazepam 2 MG/ML VIAL IV PRN (07:44)
[2022-05-10] MEDS: ENOXAPARIN 40 MG/0.4 ML SYRINGE SQ SCH (09:05)
[2022-05-10] MEDS: DESMOPRESSIN ACETATE 4 MCG/ML AMPUL SQ SCH ×2 (09:05→15:04)
[2022-05-10] MEDS: POTASSIUM CHLORIDE 20 MEQ TABLET PO PRN ×2 (09:05→21:42)
[2022-05-10] MEDS: NICOTINE 21 MG PATCH TOPICAL SCH (10:19)
--- NOTE | 2022-05-10 10:31 | EKG ---
[facility] Test Date: 2022-05-09 Pat Name: Cynthia Kirby Department: ED Room: Gender: Female She[place] Operator: SCOUT : 1950 Requested By: Nicki London Order Number: [id number] Reading MD: Paul Rashid M.D. Measurements Intervals [place] Rate: 80 P: [place]: QRS: -32 QRSD: 126 T: 105 QT: 413 QTc: 477 Interpretive Statements Poor quality ECG secondary to motion artifact in limb leads. Probable atrial fibrillation Electronically Signed On 05-10-2022 10:31:06 PDT by Paul Rashid M.D. /store/M0/[id number]
--- NOTE | 2022-05-10 10:32 | EKG ---
[facility] Test Date: 2022-05-09 Pat Name: Cynthia Kirby Department: ICU Room: 118 Gender: Female [place] Erector: : 1950 Requested By: Melquiades Post Order Number: [id number] Reading MD: Paul Rashid M.D. Measurements Intervals [place] Rate: 81 P: 23 NE: 175 QRS: -57 QRSD: 105 T: 99 QT: 418 QTc: 486 Interpretive Statements Sinus rhythm Multiple premature complexes, vent & supraven Inferior infarct, old Electronically Signed On 05-10-2022 10:32:14 PDT by aPul Rashid M.D. /store/M0/[id number]
[2022-05-10 11:52] LABS: POC Calcium, Ionized 1.29 (1.16-1.32); POC Creatinine 0.9 (0.6-1.2); POC Potassium 3.9 (3.3-5.1)
[2022-05-10] MEDS ORDERED: DEXTROSE 5% IN WATER 500 ML IV ONE (11:55)
[2022-05-10] MEDS ORDERED: DESMOPRESSIN ACETATE 1 MCG in 0.9 % SODIUM CHLORIDE 50 ML IV SCH (12:00)
[2022-05-10 13:28] LABS: Appearance,Urine Clear (Clear); Bilirubin,Urine Negative (Negative); Color,Urine Yellow; Culture Indicated,Urine No; Glucose,Urine (UA) Negative (Negative); Ketones,Urine Negative (Negative); Leukocyte Esterase,Urine Negative /uL (Negative); Mucus,Urine FEW /hpf; Nitrate,Urine Negative (Negative); Specific Gravity,Urine 1.025 (1.000-1.035); Urine Blood Trace-intact ery/mcL (Negative); Urine RBC 2 /hpf (0-3); Urine Squamous Epithelial Cell < 1 /hpf (0-4); Urine WBC 1 /hpf (0-4); Urobilinogen,Urine Normal
[2022-05-10 14:14] LABS: POC Calcium, Ionized 1.27 (1.16-1.32); POC Creatinine 0.9 (0.6-1.2); POC Potassium 3.7 (3.3-5.1)
[2022-05-10] MEDS ORDERED: cefTRIAXone 1 GM VIAL IV SCH (16:00)
[2022-05-10 17:16] LABS: POC Calcium, Ionized 1.22 (1.16-1.32); POC Creatinine 0.7 (0.6-1.2); POC Potassium 3.3 (3.3-5.1)
[2022-05-10] MEDS: OLANZapine 5 MG TABLET PO PRN (20:12)
[2022-05-10 20:58] LABS: POC Calcium, Ionized 1.2 (1.16-1.32); POC Creatinine 0.8 (0.6-1.2); POC Potassium 3.4 (3.3-5.1)
[2022-05-10] MEDS ORDERED: DESMOPRESSIN ACETATE 1 MCG in 0.9 % SODIUM CHLORIDE 50 ML IV ONE (21:00)
[2022-05-10] MEDS ORDERED: DESMOPRESSIN ACETATE 4 MCG/ML AMPUL SQ ONE (21:00)
[2022-05-10] MEDS: clonazePAM 1 MG TABLET PO SCH (21:39)
[2022-05-10] MEDS: GABAPENTIN 300 MG CAPSULE PO SCH (21:39)
[2022-05-10] MEDS: QUEtiapine 100 MG TABLET PO SCH (21:39)
[2022-05-10] MEDS: ASPIRIN 81 MG TAB.CHEW PO SCH (21:40)
[2022-05-11] MEDS: 0.9 % SODIUM CHLORIDE 10 ML SYRINGE IV SCH ×3 (05:50→20:39)
[2022-05-11 07:26] LABS: ALT/SGPT 17 U/L (<40); AST/SGOT 13 U/L (<32); Albumin 3.6 gm/dL (3.2-5.2); Albumin/Globulin Ratio 1.6 (1.0-2.3); Alkaline Phosphatase 80 U/L (39-117); Bilirubin,Direct < 0.2 mg/dL (0-0.3); Bilirubin,Total 0.3 mg/dL (0.1-1.0); Blood Urea Nitrogen 6 mg/dL (8-23); Calcium 9.1 mg/dL (8.6-10.4); Carbon Dioxide 17 mmol/L (22-30); Chloride 98 mmol/L (96-108); Globulin 2.3 gm/dL (2.2-3.7); Glomerular Filtration Rate 74; Glucose 104 mg/dL (70-105); Lactate Dehydrogenase 146 U/L (135-225); Phosphorous 1.7 mg/dL (2.5-4.5); Triglycerides 118 mg/dL (<150); Uric Acid 3.1 mg/dL (2.5-8.0)
[2022-05-11] MEDS: LEVOTHYROXINE SODIUM 112 MCG TABLET PO SCH (07:45)
[2022-05-11] MEDS: LEVOTHYROXINE 25 MCG TABLET PO SCH (07:45)
[2022-05-11] MEDS: INSULIN LISPRO 1 UNIT/0.01 ML UNIT SQ SCH ×4 (07:52→20:37)
--- NOTE | 2022-05-11 07:53 | Internal Med Progress Note ---
SUBJECTIVE Subjective Patient information: Note initiated : 05/11/22 at 7:52 am Service Date, if different from initiated Date: [] Patient: Cynthia Kirby a 72 y/o F admitted on 05/09/22 for Dizzy. Chief Complaint: [] Interval history: History of present illness: Ms. Kirby is a 72 year old F Presents ED with dizziness and lightheadedness. Patient felt like she was going to pass out. Denies any headache fever chills nausea or vomiting. Denies any chest pain or shortness of breath. She was found to have sodium of 120, she is chronically low but this is lower than her usual. 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 Patient has recent guardianship and that person has been trying to place the patient in a snf facility it sounds like she will go to [place] next week. 05/10 Patient had an episode of nausea vomiting after eating breakfast this morning. She says she typically does not eat that much. She has some occasional dizziness lightheadedness. Sodium elevated today faster than expected. We will provide some DDAVP and some hypotonic's fluid. 05/11 Patient feeling little better today. Denies dizziness or lightheadedness. Fluid restrict monitoring sodium closely. Phosphorus low and will replete. Metabolic acidosis. Review of Systems: denies headache/fever/chills/chest or abdominal pain/cough/dyspnea/diarrhea. Otherwise see above. Constitutional Vitals: Vital Signs Temp Pulse Resp BP Pulse Ox O2 Del Method O2 Flow Rate 97.8 F 65 20 95/55 94 0 05/11/22 04:01 05/11/22 04:01 05/11/22 04:01 05/11/22 04:01 05/11/22 04:01 05/10/22 20:10 05/11/22 04:01 Period Temp Pulse Resp BP Sys/Norris Pulse Ox O2 Del Method O2 Flow Rate Last 24 Hr 97.5 F-99 F 65-87 14-24 93-161/55-107 94-98 Room Air 0-0 Intake and Output 05/10/22 05/11/22 05/11/22 21:59 05:59 13:59 Intake Total 1220 120 Output Total 875 315 Balance 345 -195 Weight 85.593 kg Intake & Output: Intake & Output 07/22/22 07/23/22 07/23/22 21:59 05:59 13:59 Intake Total 1220 120 Output Total 875 315 Balance 345 -195 Weight 85.593 kg Intake: IV 500 Dextrose 5% in Water 500 ml @ 500 150 mls/hr IV .Q3H20M ONE Rx#: [id number] Oral 720 120 Output: Urine Catheter Amount 875 315 Other: Urine Appearance Clear Clear Uretheral (Whipple) Clear Urine Color Bright Yellow Bright Yellow Uretheral (Whipple) Bright Yellow Urine Odor Normal Normal Exam: General: Alert, Awake, No acute Distress, obese Eyes/N/T: EOMI,, Head/Neck: neck supple, CV: RRR, No murmurs, Pulm: Clear b/l, no wheezing/rhonchi/rales Abd: soft, nontender, +BS x4 Ext: no clubbing/cyanosis/edema Neuro: Alert, no focal deficits, moves all extremities, Skin: warm/dry OBJ DATA Labs CBC & Chem 7: 05/09/22 20:42 05/11/22 05:42 Labs: Abnormal Lab Results 05/11/22 05/10/22 05/10/22 05:42 20:55 17:14 WBC Immature Gran % (Auto) Lymph % (Auto) Immature Gran # Absolute Neutrophils POC Sodium 125 L 126 L Sodium 125 L POC Chloride Carbon Dioxide 17 L POC Total CO2 19.0 L 19.0 L BUN 6 L Glucose POC Glucose 175 H Osmolality Uric Acid Calcium POC WB Ioniz Calcium Phosphorus 1.7 L GGT Lactate Dehydrogenase Urine Protein Urine Occult Blood Urine Mucus Urine Osmolality 05/10/22 05/10/22 05/10/22 14:12 12:16 11:49 WBC Immature Gran % (Auto) Lymph % (Auto) Immature Gran # Absolute Neutrophils POC Sodium 132 L Sodium POC Chloride Carbon Dioxide POC Total CO2 21.0 L 20.0 L BUN Glucose POC Glucose 180 H 123 H Osmolality Uric Acid Calcium POC WB Ioniz Calcium Phosphorus GGT Lactate Dehydrogenase Urine Protein 30 mg/dl A Urine Occult Blood Trace-intact A Urine Mucus Few A Urine Osmolality 05/10/22 05/09/22 05/09/22 05:04 21:15 20:42 WBC 15.0 H Immature Gran % (Auto) 0.7 H Lymph % (Auto) 15.3 L Immature Gran # 0.10 H Absolute Neutrophils 11.74 H POC Sodium Sodium 131 L POC Chloride Carbon Dioxide 19 L POC Total CO2 BUN 7 L Glucose 108 H POC Glucose Osmolality Uric Acid Calcium 10.5 H POC WB Ioniz Calcium Phosphorus GGT 44 H Lactate Dehydrogenase 231 H Urine Protein Urine Occult Blood Urine Mucus Urine Osmolality 43 L 05/09/22 05/09/22 05/09/22 19:33 19:29 19:29 WBC Immature Gran % (Auto) Lymph % (Auto) Immature Gran # Absolute Neutrophils POC Sodium 120 L Sodium 116 L* POC Chloride 94 L Carbon Dioxide POC Total CO2 16.0 L BUN Glucose POC Glucose 120 H Osmolality 250 L Uric Acid 2.2 L Calcium POC WB Ioniz Calcium 1.09 L Phosphorus GGT Lactate Dehydrogenase Urine Protein Urine Occult Blood Urine Mucus Urine Osmolality Meds: Medications Acetaminophen (Acetaminophen 325 Mg Tablet) 650 mg PO Q6HP PRN; Protocol PRN Reason: Per Pain Protocol/Fever > 101 Albuterol/Ipratropium (Ipratropium/Albuterol 3 Ml Ampul.Neb) 3 ml NEB Q4HP PRN PRN Reason: Shortness Of Breath Amlodipine Besylate (Amlodipine 10 Mg Tablet) 5 mg PO DAILY [facility] Aspirin (Aspirin 81 Mg Tab.Chew) 81 mg PO BID [facility] Last Admin: 05/10/22 21:40 Dose: 81 mg Clonazepam (Clonazepam 1 Mg Tablet) 1 mg PO TID [facility] Last Admin: 05/10/22 21:39 Dose: 1 mg Dextrose (Dextrose 50% 50 Ml Vial) 0 ml IV UD PRN PRN Reason: Per Sliding Scale Diagnostic Test (Pha) (Accu-Chek 1 Each Strip) 1 each FS ACHS [facility] Last Admin: 05/10/22 20:17 Dose: 1 each Docusate Sodium (Docusate Sodium 100 Mg Capsule) 100 mg PO BID [facility] Last Admin: 05/10/22 20:11 Dose: 100 mg Enoxaparin Sodium (Enoxaparin 40 Mg/0.4 Ml Syringe) 40 mg SQ DAILY [facility] Last Admin: 05/10/22 09:05 Dose: 40 mg Gabapentin (Gabapentin 300 Mg Capsule) 300 mg PO BID [facility] Last Admin: 05/10/22 21:39 Dose: 300 mg Glucose (Dextrose 31 Gm Oral.Susp) 15 gm PO PRN PRN PRN Reason: Hypoglycemia Hydralazine HCl (Hydralazine 20 Mg/Ml Vial) 0 mg IV Q2HP PRN PRN Reason: Hypertension Hydroxyzine HCl (Hydroxyzine 25 Mg Tablet) 50 mg PO TIDP PRN PRN Reason: anxiety Potassium Chloride 40 meq/ (Dextrose) 520 mls @ 130 mls/hr IV UD PRN PRN Reason: Potassium < 3 Magnesium Sulfate (Magnesium Sulfate) 2 gm in 50 mls @ 50 mls/hr IV UD PRN PRN Reason: Magnesium </= 1.6 Insulin Human Lispro (Insulin Lispro 1 Unit/0.01 Ml Unit) 0 unit SQ ACHS [facility]; Protocol Last Admin: 05/10/22 20:54 Dose: Not Given Labetalol HCl (Labetalol 5 Mg/Ml Ml) 0 mg IV Q2HP PRN PRN Reason: Hypertension Lamotrigine (Lamotrigine 100 Mg Tablet) 100 mg PO DAILY [facility] Levothyroxine Sodium (Levothyroxine Sodium 112 Mcg Tablet) 112 mcg PO QAMAC [facility] Last Admin: 05/11/22 07:45 Dose: 112 mcg Levothyroxine Sodium (Levothyroxine 25 Mcg Tablet) 25 mcg PO QAMAC [facility] Last Admin: 05/11/22 07:45 Dose: 25 mcg Lorazepam (Lorazepam 2 Mg/Ml Vial) 0.5 mg IV Q6HP PRN PRN Reason: ANXIETY/SEDATION Losartan Potassium (Losartan 50 Mg Tablet) 100 mg PO DAILY [facility] Nicotine (Nicotine 21 Mg Patch) 21 mg TOPICAL DAILY@1000 YG Last Admin: 05/10/22 10:19 Dose: 21 mg Olanzapine (Olanzapine 5 Mg Tablet) 5 mg PO HSP PRN PRN Reason: Agitation Last Admin: 05/10/22 20:12 Dose: 5 mg Ondansetron HCl (Ondansetron 4 Mg/2 Ml Vial) 4 mg IV Q4HP PRN PRN Reason: Nausea And Vomiting Last Admin: 05/10/22 08:10 Dose: 4 mg Fluvoxamine 50 Mg (Tablet) 1 dose PO HS [facility] Linaclotide [Linzess (] 290 Mcg Capsule) 1 dose PO QDAY [facility] Polyethylene Glycol (Polyethylene Glycol 3350 17 Gm Packet) 17 gm PO DAILYP PRN PRN Reason: Constipation Potassium Chloride (Potassium Chloride 20 Meq Tablet) 40 meq PO UD PRN PRN Reason: Potssium is 3-3.5 Last Admin: 05/10/22 21:42 Dose: 40 meq Potassium Chloride (Potassium Chloride 20 Meq Tablet) 40 meq PO UD PRN PRN Reason: Potassium < 3 Quetiapine Fumarate (Quetiapine 100 Mg Tablet) 400 mg PO HS [facility] Last Admin: 05/10/22 21:39 Dose: 400 mg Quetiapine Fumarate (Quetiapine 100 Mg Tablet) 200 mg PO DAILY Y[facility] Senna (Sennosides 1 Tablet) 2 tab PO DAILYP PRN PRN Reason: Constipation Sodium Chloride (0.9 % Sodium Chloride 10 Ml Syringe) 10 ml IV Q8 [facility] Last Admin: 05/11/22 05:50 Dose: 10 ml A/P Narrative A/P Narrative: A: *Acute on chronic hyponatremia: psychogenic polydipsia and has h/o same *HTN Urgency: Elevated blood pressure in the ED. improved *Hypophosphatemia: *Dementia with h/o behavioral disturbances: *Anxiety/bipolar disorder: *Metabolic acidosis: question if she is taking Diamox at home. improved *DM: *Hypothyroidism: tsh wnl *Tobacco abuse: *Obesity: BMI 33 *Inability to care for self: In the process of getting placement to a SNF P: -significant discrepancy between POC and Lab sodium on admit creates difficulty in management -fluid restrict -monitor sodium and replete phosphorus -Continue psych meds -cont norvasc/ARB, ASA/Statin -SSI, hold metformin for now -Smoking cessation counseling -PT/OT -CM for placement -ppx: Lovenox Time Spent With Patient Time: Total time spent is greater than 50% in coordination of care (as documented) at patient's floor/unit and/or counseling patient: Total time spent with greater than 50% in coordination of care (as documented) at patient's floor/unit and/or counseling patient:: 25 - 35 minutes QUALITY VTE Deep Vein Thrombosis/Pulmonary Embolism Present on Admission: No
[2022-05-11] MEDS ORDERED: NEUTRA PHOS 1 PACKET PO ONE (07:56)
[2022-05-11] MEDS ORDERED: SODIUM BICARBONATE 650 MG TABLET PO ONE (07:56)
[2022-05-11] MEDS ORDERED: amLODIPine 10 MG TABLET PO SCH (09:00)
[2022-05-11] MEDS ORDERED: QUEtiapine 100 MG TABLET PO SCH (09:00)
[2022-05-11] MEDS ORDERED: LOSARTAN 50 MG TABLET PO SCH (09:00)
[2022-05-11] MEDS: ENOXAPARIN 40 MG/0.4 ML SYRINGE SQ SCH (09:40)
[2022-05-11] MEDS: GABAPENTIN 300 MG CAPSULE PO SCH ×2 (09:40→20:37)
[2022-05-11] MEDS: PHOSPHORUS 250 MG TABLET PO SCH ×2 (09:40→20:40)
[2022-05-11] MEDS: clonazePAM 1 MG TABLET PO SCH (09:40)
[2022-05-11] MEDS: ASPIRIN 81 MG TAB.CHEW PO SCH ×2 (09:40→20:37)
[2022-05-11] MEDS: lamoTRIgine 100 MG TABLET PO SCH (09:41)
[2022-05-11] MEDS: NICOTINE 21 MG PATCH TOPICAL SCH (09:41)
[2022-05-11] MEDS: DOCUSATE SODIUM 100 MG CAPSULE PO SCH ×2 (09:41→20:39)
[2022-05-11 14:12] LABS: POC Calcium, Ionized 1.36 (1.16-1.32); POC Creatinine 0.9 (0.6-1.2); POC Potassium 4.2 (3.3-5.1)
[2022-05-11] MEDS: QUEtiapine 100 MG TABLET PO SCH (20:38)
[2022-05-11] MEDS: Fluvoxamine 50 mg tablet PO SCH (20:38)
[2022-05-11] MEDS: OLANZapine 5 MG TABLET PO PRN (21:01)
[2022-05-12] MEDS: 0.9 % SODIUM CHLORIDE 10 ML SYRINGE IV SCH ×3 (06:01→22:35)
[2022-05-12 07:13] LABS: Blood Urea Nitrogen 12 mg/dL (8-23); Calcium 9.4 mg/dL (8.6-10.4); Carbon Dioxide 23 mmol/L (22-30); Chloride 104 mmol/L (96-108); Glomerular Filtration Rate 64; Glucose 90 mg/dL (70-105)
[2022-05-12 07:15] LABS: ALT/SGPT 15 U/L (<40); AST/SGOT 11 U/L (<32); Albumin 3.5 gm/dL (3.2-5.2); Albumin/Globulin Ratio 1.5 (1.0-2.3); Alkaline Phosphatase 83 U/L (39-117); Bilirubin,Direct < 0.2 mg/dL (0-0.3); Bilirubin,Total 0.2 mg/dL (0.1-1.0); Blood Urea Nitrogen 11 mg/dL (8-23); Calcium 9.4 mg/dL (8.6-10.4); Carbon Dioxide 22 mmol/L (22-30); Chloride 105 mmol/L (96-108); Globulin 2.4 gm/dL (2.2-3.7); Glomerular Filtration Rate 64; Glucose 89 mg/dL (70-105); Lactate Dehydrogenase 139 U/L (135-225); Triglycerides 82 mg/dL (<150); Uric Acid 3.4 mg/dL (2.5-8.0)
[2022-05-12] MEDS: LEVOTHYROXINE 25 MCG TABLET PO SCH (08:07)
[2022-05-12] MEDS: INSULIN LISPRO 1 UNIT/0.01 ML UNIT SQ SCH ×4 (08:07→20:11)
[2022-05-12] MEDS: LEVOTHYROXINE SODIUM 112 MCG TABLET PO SCH (08:07)
--- NOTE | 2022-05-12 08:15 | Internal Med Progress Note ---
SUBJECTIVE Subjective Patient information: Note initiated : 05/12/22 at 8:12 am Service Date, if different from initiated Date: [] Patient: Cynthia Kirby a 72 y/o F admitted on 05/09/22 for Dizzy. Chief Complaint: [] Interval history: History of present illness: Ms. Kirby is a 72 year old F Presents ED with dizziness and lightheadedness. Patient felt like she was going to pass out. Denies any headache fever chills nausea or vomiting. Denies any chest pain or shortness of breath. She was found to have sodium of 120, she is chronically low but this is lower than her usual. 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 Patient has recent guardianship and that person has been trying to place the patient in a alf facility it sounds like she will go to [place] next week. 05/10 Patient had an episode of nausea vomiting after eating breakfast this morning. She says she typically does not eat that much. She has some occasional dizziness lightheadedness. Sodium elevated today faster than expected. We will provide some DDAVP and some hypotonic's fluid. 05/11 Patient feeling little better today. Denies dizziness or lightheadedness. Fluid restrict monitoring sodium closely. Phosphorus low and will replete. Metabolic acidosis. 05/12 Slept better. Feeling little better. Sodium improved as well as acid-base balance. Continue 1800 cc fluid restrict. Case management placement likely tomorrow. Review of Systems: denies headache/fever/chills/chest or abdominal pain/cough/dyspnea/diarrhea. Otherwise see above. Constitutional Vitals: Vital Signs Temp Pulse Resp BP Pulse Ox O2 Del Method O2 Flow Rate 96.7 F L 73 15 144/74 98 0 05/12/22 08:01 05/12/22 08:01 05/12/22 08:01 05/12/22 08:01 05/12/22 08:01 05/11/22 20:10 05/12/22 06:01 Period Temp Pulse Resp BP Sys/Norris Pulse Ox O2 Del Method O2 Flow Rate Last 24 Hr 96.7 F-98.7 F 71-83 15-27 98-144/52-93 92-99 Room Air 0-0 Intake and Output 05/11/22 05/12/2222 21:59 05:59 13:59 Intake Total 840 120 Output Total 900 1250 Balance -60 -1130 Weight 84.686 kg Intake & Output: Intake & Output 05/11/22 05/12/22 05/12/22 21:59 05:59 13:59 Intake Total 840 120 Output Total 900 1250 Balance -60 -1130 Weight 84.686 kg Intake: Oral 840 120 Output: Urine Catheter Amount 900 1250 Other: Meal Dinner Percent of Meal Consumed 100% Feeding Ability Independent Urine Appearance Clear Clear Uretheral (Whipple) Clear Urine Color Bright Yellow Bright Yellow Uretheral (Whipple) Bright Yellow # Bowel Movements 0 # of times incontinent of 0 Bowels Exam: General: Alert, Awake, No acute Distress, obese Eyes/N/T: EOMI,, Head/Neck: neck supple, CV: RRR, No murmurs, Pulm: Clear b/l, no wheezing/rhonchi/rales Abd: soft, nontender, +BS x4 Ext: no clubbing/cyanosis/edema Neuro: Alert, no focal deficits, moves all extremities, Skin: warm/dry OBJ DATA Labs CBC & Chem 7: 05/09/22 20:42 05/12/22 05:44 Labs: Abnormal Lab Results 05/11/22 05/11/22 05/10/22 14:09 05:42 20:55 WBC Immature Gran % (Auto) Lymph % (Auto) Immature Gran # Absolute Neutrophils POC Sodium 129 L 125 L Sodium 125 L POC Chloride Carbon Dioxide 17 L POC Total CO2 19.0 L BUN 6 L Glucose POC Glucose Osmolality Uric Acid Calcium POC WB Ioniz Calcium 1.36 H Phosphorus 1.7 L GGT Lactate Dehydrogenase Urine Protein Urine Occult Blood Urine Mucus Urine Osmolality 05/10/22 05/10/22 05/10/22 17:14 14:12 12:16 WBC Immature Gran % (Auto) Lymph % (Auto) Immature Gran # Absolute Neutrophils POC Sodium 126 L 132 L Sodium POC Chloride Carbon Dioxide POC Total CO2 19.0 L 21.0 L BUN Glucose POC Glucose 175 H 180 H Osmolality Uric Acid Calcium POC WB Ioniz Calcium Phosphorus GGT Lactate Dehydrogenase Urine Protein 30 mg/dl A Urine Occult Blood Trace-intact A Urine Mucus Few A Urine Osmolality 05/10/22 05/10/22 05/09/22 11:49 05:04 21:15 WBC Immature Gran % (Auto) Lymph % (Auto) Immature Gran # Absolute Neutrophils POC Sodium Sodium 131 L POC Chloride Carbon Dioxide 19 L POC Total CO2 20.0 L BUN 7 L Glucose 108 H POC Glucose 123 H Osmolality Uric Acid Calcium 10.5 H POC WB Ioniz Calcium Phosphorus GGT 44 H Lactate Dehydrogenase 231 H Urine Protein Urine Occult Blood Urine Mucus Urine Osmolality 43 L 05/09/22 05/09/22 05/09/22 20:42 19:33 19:29 WBC 15.0 H Immature Gran % (Auto) 0.7 H Lymph % (Auto) 15.3 L Immature Gran # 0.10 H Absolute Neutrophils 11.74 H POC Sodium 120 L Sodium POC Chloride 94 L Carbon Dioxide POC Total CO2 16.0 L BUN Glucose POC Glucose 120 H Osmolality 250 L Uric Acid 2.2 L Calcium POC WB Ioniz Calcium 1.09 L Phosphorus GGT Lactate Dehydrogenase Urine Protein Urine Occult Blood Urine Mucus Urine Osmolality 05/09/22 19:29 WBC Immature Gran % (Auto) Lymph % (Auto) Immature Gran # Absolute Neutrophils POC Sodium Sodium 116 L* POC Chloride Carbon Dioxide POC Total CO2 BUN Glucose POC Glucose Osmolality Uric Acid Calcium POC WB Ioniz Calcium Phosphorus GGT Lactate Dehydrogenase Urine Protein Urine Occult Blood Urine Mucus Urine Osmolality Meds: Medications Acetaminophen (Acetaminophen 325 Mg Tablet) 650 mg PO Q6HP PRN; Protocol PRN Reason: Per Pain Protocol/Fever > 101 Albuterol/Ipratropium (Ipratropium/Albuterol 3 Ml Ampul.Neb) 3 ml NEB Q4HP PRN PRN Reason: Shortness Of Breath Aspirin (Aspirin 81 Mg Tab.Chew) 81 mg PO BID [facility] Last Admin: 05/11/22 20:37 Dose: 81 mg Clonazepam (Clonazepam 1 Mg Tablet) 1 mg PO TIDP PRN PRN Reason: Agitation Dextrose (Dextrose 50% 50 Ml Vial) 0 ml IV UD PRN PRN Reason: Per Sliding Scale Diagnostic Test (Pha) (Accu-Chek 1 Each Strip) 1 each FS ACHS [facility] Last Admin: 05/12/22 08:07 Dose: 1 each Docusate Sodium (Docusate Sodium 100 Mg Capsule) 100 mg PO BID [facility] Last Admin: 05/11/22 20:39 Dose: Not Given Enoxaparin Sodium (Enoxaparin 40 Mg/0.4 Ml Syringe) 40 mg SQ DAILY [facility] Last Admin: 05/11/22 09:40 Dose: 40 mg Gabapentin (Gabapentin 300 Mg Capsule) 300 mg PO BID [facility] Last Admin: 05/11/22 20:37 Dose: 300 mg Glucose (Dextrose 31 Gm Oral.Susp) 15 gm PO PRN PRN PRN Reason: Hypoglycemia Hydralazine HCl (Hydralazine 20 Mg/Ml Vial) 0 mg IV Q2HP PRN PRN Reason: Hypertension Hydroxyzine HCl (Hydroxyzine 25 Mg Tablet) 50 mg PO TIDP PRN PRN Reason: anxiety Potassium Chloride 40 meq/ (Dextrose) 520 mls @ 130 mls/hr IV UD PRN PRN Reason: Potassium < 3 Magnesium Sulfate (Magnesium Sulfate) 2 gm in 50 mls @ 50 mls/hr IV UD PRN PRN Reason: Magnesium </= 1.6 Insulin Human Lispro (Insulin Lispro 1 Unit/0.01 Ml Unit) 0 unit SQ ACHS [facility]; Protocol Last Admin: 05/12/22 08:07 Dose: Not Given Labetalol HCl (Labetalol 5 Mg/Ml Ml) 0 mg IV Q2HP PRN PRN Reason: Hypertension Lamotrigine (Lamotrigine 100 Mg Tablet) 100 mg PO DAILY [facility] Last Admin: 05/11/22 09:41 Dose: 100 mg Levothyroxine Sodium (Levothyroxine Sodium 112 Mcg Tablet) [facility] Last Admin: 05/12/22 08:07 Dose: 112 mcg Levothyroxine Sodium (Levothyroxine 25 Mcg Tablet) 25 mcg PO QAMAC [facility] Last Admin: 05/12/22 08:07 Dose: 25 mcg Nicotine (Nicotine 21 Mg Patch) 21 mg TOPICAL DAILY@1000 [facility] Last Admin: 05/11/22 09:41 Dose: 21 mg Olanzapine (Olanzapine 5 Mg Tablet) 5 mg PO HSP PRN PRN Reason: Agitation Last Admin: 05/11/22 21:01 Dose: 5 mg Ondansetron HCl (Ondansetron 4 Mg/2 Ml Vial) 4 mg IV Q4HP PRN PRN Reason: Nausea And Vomiting Last Admin: 05/10/22 08:10 Dose: 4 mg Fluvoxamine 50 Mg (Tablet) 1 dose PO [facility] Last Admin: 05/11/22 20:38 Dose: Not Given Linaclotide [Linzess (] 290 Mcg Capsule) 1 dose PO QDAY [facility] Last Admin: 05/11/22 08:36 Dose: Not Given Polyethylene Glycol (Polyethylene Glycol 3350 17 Gm Packet) 17 gm PO DAILYP PRN PRN Reason: Constipation Potassium Chloride (Potassium Chloride 20 Meq Tablet) 40 meq PO UD PRN PRN Reason: Potssium is 3-3.5 Last Admin: 05/10/22 21:42 Dose: 40 meq Potassium Chloride (Potassium Chloride 20 Meq Tablet) 40 meq PO UD PRN PRN Reason: Potassium < 3 Quetiapine Fumarate (Quetiapine 100 Mg Tablet) 400 mg PO HS [facility] Last Admin: 05/11/22 20:38 Dose: 400 mg Senna (Sennosides 1 Tablet) 2 tab PO DAILYP PRN PRN Reason: Constipation Sodium Chloride (0.9 % Sodium Chloride 10 Ml Syringe) 10 ml IV Q8 [facility] Last Admin: 05/12/22 06:01 Dose: 10 ml A/P Narrative A/P Narrative: A: *Acute on chronic hyponatremia: 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 improved, then became low normal suspect home polypharmacy *Hypophosphatemia: *Dementia with h/o behavioral disturbances: *Anxiety/bipolar disorder: *Metabolic acidosis: question if she is taking Diamox at home. improved *DM: *Hypothyroidism: tsh wnl *Tobacco abuse: *Obesity: BMI 33 *Inability to care for self: In the process of getting placement to a SNF P: -fluid restrict 1800cc/day -monitor sodium and replete phosphorus -Continue psych meds (oversedated, stopped morning seroquel & made clonazepam prn) -stopped norvasc and lowered losartan for low-normal BP (titrate back up as able), ASA/Statin -SSI, hold metformin for now -Smoking cessation counseling -PT/OT -CM for placement -ppx: Lovenox Time Spent With Patient Time: Total time spent is greater than 50% in coordination of care (as documented) at patient's floor/unit and/or counseling patient: Total time spent with greater than 50% in coordination of care (as documented) at patient's floor/unit and/or counseling patient:: 25 - 35 minutes QUALITY VTE Deep Vein Thrombosis/Pulmonary Embolism Present on Admission: No
[2022-05-12] MEDS: ASPIRIN 81 MG TAB.CHEW PO SCH ×2 (09:47→20:11)
[2022-05-12] MEDS: GABAPENTIN 300 MG CAPSULE PO SCH ×2 (09:47→20:11)
[2022-05-12] MEDS: lamoTRIgine 100 MG TABLET PO SCH (09:47)
[2022-05-12] MEDS: LOSARTAN 50 MG TABLET PO SCH (09:47)
[2022-05-12] MEDS: ENOXAPARIN 40 MG/0.4 ML SYRINGE SQ SCH (09:47)
[2022-05-12] MEDS: DOCUSATE SODIUM 100 MG CAPSULE PO SCH ×2 (09:47→20:11)
[2022-05-12] MEDS: hydrOXYzine 25 MG TABLET PO PRN ×3 (10:31→21:53)
[2022-05-12] MEDS: NICOTINE 21 MG PATCH TOPICAL SCH (10:31)
--- NOTE | 2022-05-12 10:41 | Discharge Summary ---
Discharge Provider Provider IMPORTANT FOLLOW-UP INFORMATION FOR PCP: Patient information: Note initiated : 05/12/22 at 10:40 am Service Date, if different from initiated Date: [] Patient: Cynthia Kirby a 72 y/o F admitted on 05/09/22 for Dizzy. Chief Complaint: [] Date of admission: 05/09/22 21:56 Primary care physician: Hailey Denis Consults: 05/09/22 Consult to Physician [CONS] Stat Comment: Consulting Provider: Melquiades Post Reason For Exam: Physician to Consult COURSE Hospital Course Hospital course: History of present illness: Ms. Kirby is a 72 year old F Presents ED with dizziness and lightheadedness. Patient felt like she was going to pass out. Denies any headache fever chills nausea or vomiting. Denies any chest pain or shortness of breath. She was found to have sodium of 120, she is chronically low but this is lower than her usual. 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 Patient has recent guardianship and that person has been trying to place the patient in a group home facility it sounds like she will go to [place] next week. 05/10 Patient had an episode of nausea vomiting after eating breakfast this morning. She says she typically does not eat that much. She has some occasional dizziness lightheadedness. Sodium elevated today faster than expected. We will provide some DDAVP and some hypotonic's fluid. 05/11 Patient feeling little better today. Denies dizziness or lightheadedness. Fluid restrict monitoring sodium closely. Phosphorus low and will replete. Metabolic acidosis. 05/12 Slept better. Feeling little better. Sodium improved as well as acid-base balance. Continue 1800 cc fluid restrict. Case management placement likely tomorrow. 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 improved, then became low normal suspect home polypharmacy *Hypophosphatemia: *Dementia with h/o behavioral disturbances: *Anxiety/bipolar disorder: *Metabolic acidosis: question if she is taking Diamox at home. improved *DM: *Hypothyroidism: tsh wnl *Tobacco abuse: *Obesity: BMI 33 *Inability to care for self: In the process of getting placement to a SNF P: -fluid restrict 1800cc/day -Continue psych meds (oversedated, stopped morning seroquel & made clonazepam prn) -stopped norvasc and lowered losartan for low-normal BP (titrate back up as able) Discharge diagnosis: Acute on chronic hyponatremia psychogenic polydipsia polypharmacy hypertens Secondary discharge diagnosis: Hypertension hypophosphatemia dementia with behavioral disturbance anxiety bipolar metabolic acidosis diabetes hypothyroidism tobacco abuse obesity inability to care for self Time Spent with Patient Time attestation: Total time spent providing and/or coordinating discharge services: Time spent: Greater than 30 minutes EXAM Constitutional Vitals: Temp Pulse Resp BP Pulse Ox O2 Del Method O2 Flow Rate 96.7 F L 73 15 144/74 98 0 05/12/22 08:01 05/12/22 08:01 05/12/22 08:01 05/12/22 08:01 05/12/22 08:01 05/11/22 20:10 05/12/22 06:01 Discharge Data Data Completed and Pending Labs on day of discharge: Labs from last 24 hours 05/12/22 05/11/22 05/10/22 05:44 14:09 11:42 POC Hct 39.0 POC Sodium 129 L Sodium 135 135 POC Potassium 4.2 Potassium 4.1 4.1 POC Chloride 99 Chloride 105 104 Carbon Dioxide 22 23 POC Total CO2 22.0 Anion Gap 8.0 8.0 POC BUN 9 BUN 11 12 Creatinine 0.9 0.9 POC Creatinine 0.9 GFR Calculation 64 64 Glucose 89 90 POC Glucose 89 Uric Acid 3.4 Calcium 9.4 9.4 POC WB Ioniz Calcium 1.36 H Phosphorus 3.0 Magnesium 2.4 Total Bilirubin 0.2 Direct Bilirubin < 0.2 GGT 30 AST 11 ALT 15 Alkaline Phosphatase 83 Lactate Dehydrogenase 139 Total Protein 5.9 Albumin 3.5 Globulin 2.4 Albumin/Globulin Ratio 1.5 Triglycerides 82 Discharge Plan Patient/Caregiver Discharge Instructions Activity: increase activity as tolerated Diet: Consistent Carbohydrate Activity Restrictions/Additional Instructions: 1800 cc fluid strict per day Prescriptions: Continued gabapentin 300 mg capsule 300 mg PO BID lamotrigine 200 MG tablet 100 mg PO DAILY quetiapine 100 MG tablet 400 mg PO HS losartan 100 MG tablet 100 mg PO DAILY Qty: 30 1RF Linzess 290 mcg Capsule 290 mcg PO QDAY aspirin [Adult Low Dose Aspirin] 81 mg Tablet,Delayed Release (Dr/Ec) 81 mg PO BID levothyroxine [Synthroid] 150 mcg tablet 137 mcg PO QDAY metformin 500 mg Tablet Extended Release 24hr 1,000 mg PO QDAY Rx Instructions: take two tablets by mouth once daily at dinner time fluvoxamine 50 mg tablet 1 tab PO HS Changed clonazepam 1 mg tablet 1 mg PO TID PRN (Reason: Anxiety) Qty: 10 0RF Discontinued acetazolamide 250 mg tablet 250 mg PO QDAY amlodipine 10 MG tablet 10 mg PO DAILY quetiapine 100 mg Tablet 200 mg PO DAILY Follow Up Plan Follow up with: Hailey Denis ARNP [Primary Care Provider] - Patient Disposition: Xfer SNF Prognosis: Fair Rehab Potential: Fair I certify that the patient requires SNF services: Yes Overall status at discharge: patient is progressing back to baseline QUALITY VTE Deep Vein Thrombosis/Pulmonary Embolism Present on Admission: No
[2022-05-12] MEDS: clonazePAM 1 MG TABLET PO PRN ×3 (12:28→20:53)
[2022-05-12] MEDS: Fluvoxamine 50 mg tablet PO SCH (20:11)
[2022-05-12] MEDS: QUEtiapine 100 MG TABLET PO SCH (20:11)
[2022-05-12] MEDS: OLANZapine 5 MG TABLET PO PRN (20:53)
[2022-05-13] MEDS: ENOXAPARIN 40 MG/0.4 ML SYRINGE SQ SCH (08:04)
[2022-05-13] MEDS: 0.9 % SODIUM CHLORIDE 10 ML SYRINGE IV SCH ×3 (08:04→20:53)
[2022-05-13] MEDS: LOSARTAN 50 MG TABLET PO SCH (08:05)
[2022-05-13] MEDS: lamoTRIgine 100 MG TABLET PO SCH (08:05)
[2022-05-13] MEDS: hydrOXYzine 25 MG TABLET PO PRN ×2 (08:05→19:23)
[2022-05-13] MEDS: ASPIRIN 81 MG TAB.CHEW PO SCH ×2 (08:05→20:49)
[2022-05-13] MEDS: GABAPENTIN 300 MG CAPSULE PO SCH ×2 (08:05→20:50)
[2022-05-13] MEDS: DOCUSATE SODIUM 100 MG CAPSULE PO SCH ×2 (08:05→20:50)
[2022-05-13] MEDS: LEVOTHYROXINE SODIUM 112 MCG TABLET PO SCH (08:05)
[2022-05-13] MEDS: LEVOTHYROXINE 25 MCG TABLET PO SCH (08:05)
[2022-05-13] MEDS: INSULIN LISPRO 1 UNIT/0.01 ML UNIT SQ SCH ×4 (08:19→20:53)
[2022-05-13] MEDS: NICOTINE 21 MG PATCH TOPICAL SCH (09:35)
[2022-05-13] MEDS: clonazePAM 1 MG TABLET PO PRN ×2 (09:35→19:23)
--- NOTE | 2022-05-13 10:11 | Internal Med Progress Note ---
SUBJECTIVE Subjective Patient information: Note initiated : 05/13/22 at 10:08 am Service Date, if different from initiated Date: [] Patient: Cynthia Kibry a 72 y/o F admitted on 05/09/22 for Dizzy. Chief Complaint: [] Interval history: History of present illness: Ms. Kirby is a 72 year old F Presents ED with dizziness and lightheadedness. Patient felt like she was going to pass out. Denies any headache fever chills nausea or vomiting. Denies any chest pain or shortness of breath. She was found to have sodium of 120, she is chronically low but this is lower than her usual. 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 Patient has recent guardianship and that person has been trying to place the patient in a snf facility it sounds like she will go to [place] next week. 05/10 Patient had an episode of nausea vomiting after eating breakfast this morning. She says she typically does not eat that much. She has some occasional dizziness lightheadedness. Sodium elevated today faster than expected. We will provide some DDAVP and some hypotonic's fluid. 05/11 Patient feeling little better today. Denies dizziness or lightheadedness. Fluid restrict monitoring sodium closely. Phosphorus low and will replete. Metabolic acidosis. 05/12 Slept better. Feeling little better. Sodium improved as well as acid-base balance. Continue 1800 cc fluid restrict. Case management placement likely tomorrow. 05/13 No overnight event or new complaints. Continue fluid restrict. Awaiting placement. Review of Systems: denies headache/fever/chills/chest or abdominal pain/cough/dyspnea/diarrhea. Otherwise see above. Constitutional Vitals: Vital Signs Temp Pulse Resp BP Pulse Ox O2 Del Method O2 Flow Rate 97.3 F 86 23 H 153/92 96 0 05/13/22 08:01 05/13/22 08:01 05/13/22 08:01 05/13/22 08:01 05/13/22 08:01 05/13/22 08:15 05/12/22 06:01 Period Temp Pulse Resp BP Sys/Norris Pulse Ox O2 Del Method O2 Flow Rate Last 24 Hr 97 F-98 F 79-90 16-26 92-153/59-113 94-98 Room Air-Room Air Intake and Output 05/12/22 05/13/22 05/13/22 21:59 05:59 13:59 Intake Total 718 600 480 Output Total 200 500 300 Balance 518 100 180 Weight 84.368 kg Intake & Output: Intake & Output 05/12/22 05/13/22 05/13/22 21:59 05:59 13:59 Intake Total 718 600 480 Output Total 200 500 300 Balance 518 100 180 Weight 84.368 kg Intake: Oral 718 600 480 Output: Urine Catheter Amount 200 500 300 Other: Meal Dinner michael crackers x 4 Breakfast Percent of Meal Consumed 100% 100% 100% Feeding Ability Assist with Tray Set Up Urine Appearance Clear Sediment Cloudy Mucous Threads Uretheral (Whipple) Clear Clear Urine Color Dark Yellow Dark Yellow Bright Yellow Uretheral (Whipple) Dark Yellow Dark Yellow Urine Odor Normal Exam: General: Alert, Awake, No acute Distress, obese Eyes/N/T: EOMI,, Head/Neck: neck supple, CV: RRR, No murmurs, Pulm: Clear b/l, no wheezing/rhonchi/rales Abd: soft, nontender, +BS x4 Ext: no clubbing/cyanosis/edema Neuro: Alert, no focal deficits, moves all extremities, Skin: warm/dry OBJ DATA Labs CBC & Chem 7: 05/09/22 20:42 05/12/22 05:44 Labs: Abnormal Lab Results 05/11/22 05/11/22 05/10/22 14:09 05:42 20:55 POC Sodium 129 L 125 L Sodium 125 L Carbon Dioxide 17 L POC Total CO2 19.0 L BUN 6 L POC Glucose POC WB Ioniz Calcium 1.36 H Phosphorus 1.7 L Urine Protein Urine Occult Blood Urine Mucus 05/10/22 05/10/22 05/10/22 17:14 14:12 12:16 POC Sodium 126 L 132 L Sodium Carbon Dioxide POC Total CO2 19.0 L 21.0 L BUN POC Glucose 175 H 180 H POC WB Ioniz Calcium Phosphorus Urine Protein 30 mg/dl A Urine Occult Blood Trace-intact A Urine Mucus Few A 05/10/22 11:49 POC Sodium Sodium Carbon Dioxide POC Total CO2 20.0 L BUN POC Glucose 123 H POC WB Ioniz Calcium Phosphorus Urine Protein Urine Occult Blood Urine Mucus Meds: Medications Acetaminophen (Acetaminophen 325 Mg Tablet) 650 mg PO Q6HP PRN; Protocol PRN Reason: Per Pain Protocol/Fever > 101 Albuterol/Ipratropium (Ipratropium/Albuterol 3 Ml Ampul.Neb) 3 ml NEB Q4HP PRN PRN Reason: Shortness Of Breath Aspirin (Aspirin 81 Mg Tab.Chew) 81 mg PO BID [facility] Last Admin: 05/13/22 08:05 Dose: 81 mg Clonazepam (Clonazepam 1 Mg Tablet) 1 mg PO TIDP PRN PRN Reason: Agitation Last Admin: 05/13/22 09:35 Dose: 1 mg Dextrose (Dextrose 50% 50 Ml Vial) 0 ml IV UD PRN PRN Reason: Per Sliding Scale Diagnostic Test (Pha) (Accu-Chek 1 Each Strip) 1 each FS ACHS [facility] Last Admin: 05/13/22 08:05 Dose: 1 each Docusate Sodium (Docusate Sodium 100 Mg Capsule) 100 mg PO BID [facility] Last Admin: 05/13/22 08:05 Dose: Not Given Enoxaparin Sodium (Enoxaparin 40 Mg/0.4 Ml Syringe) 40 mg SQ DAILY [facility] Last Admin: 05/13/22 08:04 Dose: 40 mg Gabapentin (Gabapentin 300 Mg Capsule) 300 mg PO BID [facility] Last Admin: 05/13/22 08:05 Dose: 300 mg Glucose (Dextrose 31 Gm Oral.Susp) 15 gm PO PRN PRN PRN Reason: Hypoglycemia Hydralazine HCl (Hydralazine 20 Mg/Ml Vial) 0 mg IV Q2HP PRN PRN Reason: Hypertension Hydroxyzine HCl (Hydroxyzine 25 Mg Tablet) 50 mg PO TIDP PRN PRN Reason: anxiety Last Admin: 05/13/22 08:05 Dose: 50 mg Potassium Chloride 40 meq/ (Dextrose) 520 mls @ 130 mls/hr IV UD PRN PRN Reason: Potassium < 3 Magnesium Sulfate (Magnesium Sulfate) 2 gm in 50 mls @ 50 mls/hr IV UD PRN PRN Reason: Magnesium </= 1.6 Insulin Human Lispro (Insulin Lispro 1 Unit/0.01 Ml Unit) 0 unit SQ ACHS [facility]; Protocol Last Admin: 05/13/22 08:19 Dose: Not Given Labetalol HCl (Labetalol 5 Mg/Ml Ml) 0 mg IV Q2HP PRN PRN Reason: Hypertension Lamotrigine (Lamotrigine 100 Mg Tablet) 100 mg PO DAILY [facility] Last Admin: 05/13/22 08:05 Dose: 100 mg Levothyroxine Sodium (Levothyroxine Sodium 112 Mcg Tablet) 112 mcg PO [facility] Last Admin: 05/13/22 08:05 Dose: 112 mcg Levothyroxine Sodium (Levothyroxine 25 Mcg Tablet) 25 mcg PO QAMAC [facility] Last Admin: 05/13/22 08:05 Dose: 25 mcg Losartan Potassium (Losartan 50 Mg Tablet) 50 mg PO DAILY [facility] Last Admin: 05/13/22 08:05 Dose: 50 mg Nicotine (Nicotine 21 Mg Patch) 21 mg TOPICAL DAILY@1000 [facility] Last Admin: 05/13/22 09:35 Dose: 21 mg Olanzapine (Olanzapine 5 Mg Tablet) 5 mg PO HSP PRN PRN Reason: Agitation Last Admin: 05/12/22 20:53 Dose: 5 mg Ondansetron HCl (Ondansetron 4 Mg/2 Ml Vial) 4 mg IV Q4HP PRN PRN Reason: Nausea And Vomiting Last Admin: 05/10/22 08:10 Dose: 4 mg Fluvoxamine 50 Mg (Tablet) 1 dose PO [facility] Last Admin: 05/12/22 20:11 Dose: Not Given Linaclotide [Linzess (] 290 Mcg Capsule) 1 dose PO QDAY [facility] Last Admin: 05/13/22 08:05 Dose: Not Given Polyethylene Glycol (Polyethylene Glycol 3350 17 Gm Packet) 17 gm PO DAILYP PRN PRN Reason: Constipation Potassium Chloride (Potassium Chloride 20 Meq Tablet) 40 meq PO UD PRN PRN Reason: Potssium is 3-3.5 Last Admin: 05/10/22 21:42 Dose: 40 meq Potassium Chloride (Potassium Chloride 20 Meq Tablet) 40 meq PO UD PRN PRN Reason: Potassium < 3 Quetiapine Fumarate (Quetiapine 100 Mg Tablet) 400 mg PO [facility] Last Admin: 05/12/22 20:11 Dose: 400 mg Senna (Sennosides 1 Tablet) 2 tab PO DAILYP PRN PRN Reason: Constipation Sodium Chloride (0.9 % Sodium Chloride 10 Ml Syringe) 10 ml IV Q8 [facility] Last Admin: 05/13/22 08:04 Dose: 10 ml A/P Narrative A/P Narrative: A: *Acute on chronic hyponatremia: 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 resolved *polcypharmacy: *HTN Urgency: Elevated blood pressure in the ED. improved, then became low normal suspect home polypharmacy *Hypophosphatemia: *Dementia with h/o behavioral disturbances: *Anxiety/bipolar disorder: *Metabolic acidosis: question if she is taking Diamox at home. improved *DM: *Hypothyroidism: tsh wnl *Tobacco abuse: *Obesity: BMI 33 *Inability to care for self: In the process of getting placement to a SNF P: -fluid restrict 1800cc/day -monitor sodium and replete phosphorus -Continue psych meds (oversedated several days ago, stopped morning seroquel & made home clonazepam prn) -restarted norvasc cont losartan. titrate as needed -cont ASA/Statin -SSI, hold metformin for now -Smoking cessation counseling -PT/OT -CM for placement -ppx: Lovenox Time Spent With Patient Time: Total time spent is greater than 50% in coordination of care (as documented) at patient's floor/unit and/or counseling patient: QUALITY VTE Deep Vein Thrombosis/Pulmonary Embolism Present on Admission: No
[2022-05-13] MEDS: amLODIPine 5 MG TABLET PO SCH (10:32)
[2022-05-13] MEDS: ACETAMINOPHEN 325 MG TABLET PO PRN (19:21)
[2022-05-13] MEDS: OLANZapine 5 MG TABLET PO PRN (19:23)
[2022-05-13] MEDS: QUEtiapine 100 MG TABLET PO SCH (20:50)
[2022-05-13] MEDS: Fluvoxamine 50 mg tablet PO SCH (20:53)
[2022-05-14] MEDS: 0.9 % SODIUM CHLORIDE 10 ML SYRINGE IV SCH ×3 (06:06→21:01)
[2022-05-14] MEDS: INSULIN LISPRO 1 UNIT/0.01 ML UNIT SQ SCH ×4 (07:45→21:14)
[2022-05-14] MEDS: LOSARTAN 50 MG TABLET PO SCH (08:09)
[2022-05-14] MEDS: ASPIRIN 81 MG TAB.CHEW PO SCH ×2 (08:09→21:00)
[2022-05-14] MEDS: LEVOTHYROXINE SODIUM 112 MCG TABLET PO SCH (08:09)
[2022-05-14] MEDS: LEVOTHYROXINE 25 MCG TABLET PO SCH (08:09)
[2022-05-14] MEDS: GABAPENTIN 300 MG CAPSULE PO SCH ×2 (08:10→21:00)
[2022-05-14] MEDS: amLODIPine 5 MG TABLET PO SCH (08:10)
[2022-05-14] MEDS: ENOXAPARIN 40 MG/0.4 ML SYRINGE SQ SCH (08:10)
[2022-05-14] MEDS: DOCUSATE SODIUM 100 MG CAPSULE PO SCH ×3 (08:10→21:01)
[2022-05-14] MEDS: lamoTRIgine 100 MG TABLET PO SCH (08:10)
[2022-05-14] MEDS: NICOTINE 21 MG PATCH TOPICAL SCH (10:38)
--- NOTE | 2022-05-14 11:46 | Internal Med Progress Note ---
SUBJECTIVE Subjective Patient information: Note initiated : 05/14/22 at 11:40 am Service Date, if different from initiated Date: [] Patient: Cynthia Kirby 72 y/o F admitted on 05/09/22 for Dizzy. Chief Complaint: [] Interval history: Presents ED with dizziness and lightheadedness. Patient felt like she was going to pass out. Denies any headache fever chills nausea or vomiting. Denies any chest pain or shortness of breath. She was found to have sodium of 120, she is chronically low but this is lower than her usual. 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 Patient has recent guardianship and that person has been trying to place the patient in a residential facility it sounds like she will go to [place] next week. 05/10 Patient had an episode of nausea vomiting after eating breakfast this morning. She says she typically does not eat that much. She has some occasional dizziness lightheadedness. Sodium elevated today faster than expected. We will provide some DDAVP and some hypotonic's fluid. 05/11 Patient feeling little better today. Denies dizziness or lightheadedness. Fluid restrict monitoring sodium closely. Phosphorus low and will replete. Metabolic acidosis. 05/12 Slept better. Feeling little better. Sodium improved as well as acid-base balance. Continue 1800 cc fluid restrict. Case management placement likely tomorrow. 05/13 No overnight event or new complaints. Continue fluid restrict. Awaiting placement. 05/14: No major overnight event. Both sodium and potassium level normalized. We will continue 1800 cc/day fluid restrictions, while awaiting fci placement. Constitutional Vitals: Vital Signs Temp Pulse Resp BP Pulse Ox O2 Del Method O2 Flow Rate 36.7 C 79 20 157/88 95 0 05/14/22 07:26 05/14/22 07:26 05/14/22 07:26 05/14/22 07:26 05/14/22 07:26 05/14/22 07:05/13/22 12:12 Period Temp Pulse Resp BP Sys/Norris Pulse Ox O2 Del Method O2 Flow Rate Last 24 Hr 36.6 C-37.1 C 77-87 16-20 118-157/68-88 95-99 Room Air-Room Air 0 Intake and Output 05/13/22 05/14/22 05/14/22 21:59 05:59 13:59 Intake Total 180 500 Output Total 500 1999 Balance -320 -1500 Weight 87.09 kg Intake & Output: Intake & Output 05/13/22 05/14/22 05/14/22 21:59 05:59 13:59 Intake Total 180 500 Output Total 500 1999 Balance -320 -1500 Weight 87.09 kg Intake: Oral 180 500 Output: Urine Catheter Amount 500 2000 Other: Meal Dinner Breakfast Percent of Meal Consumed 100% 100% Feeding Ability Assist with Tray Set Up Assist with Tray Set Up Urine Appearance Cloudy Uretheral (Whipple) Clear Urine Color Dark Yellow Bright Yellow Straw Uretheral (Whipple) Bright Yellow Urine Odor Normal # Bowel Movements 0 General appearance: average body habitus and no acute distress; no cooperative Head Head exam: Present atraumatic and normal inspection Eye Eye exam: Present normal appearance ENT ENT exam: Present mucous membranes moist, normal exam and normal external ear exam Neck Neck exam: Present normal inspection Respiratory Respiratory exam: Present normal respiratory exam Cardiovascular Cardiovascular exam: Present normal rate and rhythm GI/Abdominal GI/Abdominal exam: Present normal bowel sounds Back Exam Back exam: Present normal inspection Neurological Exam Neurological exam: Present alert and oriented X3 Psychiatric Psychiatric exam: Present agitated Skin Skin exam: Present intact and warm OBJ DATA Labs CBC & Chem 7: 05/09/22 20:42 05/12/22 05:44 Labs: Abnormal Lab Results 05/11/22 14:09 POC Sodium 129 L POC WB Ioniz Calcium 1.36 H Meds: Medications Acetaminophen (Acetaminophen 325 Mg Tablet) 650 mg PO Q6HP PRN; Protocol PRN Reason: Per Pain Protocol/Fever > 101 Last Admin: 05/13/22 19:21 Dose: 650 mg Albuterol/Ipratropium (Ipratropium/Albuterol 3 Ml Ampul.Neb) 3 ml NEB Q4HP PRN PRN Reason: Shortness Of Breath Amlodipine Besylate (Amlodipine 5 Mg Tablet) 5 mg PO DAILY [facility] Last Admin: 05/14/22 08:10 Dose: 5 mg Aspirin (Aspirin 81 Mg Tab.Chew) 81 mg PO BID YG Last Admin: 05/14/22 08:09 Dose: 81 mg Clonazepam (Clonazepam 1 Mg Tablet) 1 mg PO TIDP PRN PRN Reason: Agitation Last Admin: 05/13/22 19:23 Dose: 1 mg Dextrose (Dextrose 50% 50 Ml Vial) 0 ml IV UD PRN PRN Reason: Per Sliding Scale Diagnostic Test (Pha) (Accu-Chek 1 Each Strip) 1 each FS [facility] Last Admin: 05/14/22 07:45 Dose: 1 each Docusate Sodium (Docusate Sodium 100 Mg Capsule) 100 mg PO BID [facility] Last Admin: 05/14/22 08:32 Dose: Not Given Enoxaparin Sodium (Enoxaparin 40 Mg/0.4 Ml Syringe) 40 mg SQ DAILY [facility] Last Admin: 05/14/22 08:10 Dose: 40 mg Gabapentin (Gabapentin 300 Mg Capsule) 300 mg PO BID [facility] Last Admin: 05/14/22 08:10 Dose: 300 mg Glucose (Dextrose 31 Gm Oral.Susp) 15 gm PO PRN PRN PRN Reason: Hypoglycemia Hydralazine HCl (Hydralazine 20 Mg/Ml Vial) 0 mg IV Q2HP PRN PRN Reason: Hypertension Hydroxyzine HCl (Hydroxyzine 25 Mg Tablet) 50 mg PO TIDP PRN PRN Reason: anxiety Last Admin: 05/13/22 19:23 Dose: 50 mg Potassium Chloride 40 meq/ (Dextrose) 520 mls @ 130 mls/hr IV UD PRN PRN Reason: Potassium < 3 Magnesium Sulfate (Magnesium Sulfate) 2 gm in 50 mls @ 50 mls/hr IV UD PRN PRN Reason: Magnesium </= 1.6 Insulin Human Lispro (Insulin Lispro 1 Unit/0.01 Ml Unit) 0 unit SQ [facility]; Protocol Last Admin: 05/14/22 07:45 Dose: Not Given Labetalol HCl (Labetalol 5 Mg/Ml Ml) 0 mg IV Q2HP PRN PRN Reason: Hypertension Lamotrigine (Lamotrigine 100 Mg Tablet) 100 mg PO DAILY [facility] Last Admin: 05/14/22 08:10 Dose: 100 mg Levothyroxine Sodium (Levothyroxine Sodium 112 Mcg Tablet) 112 mcg PO QAMAC [facility] Last Admin: 05/14/22 08:09 Dose: 112 mcg Levothyroxine Sodium (Levothyroxine 25 Mcg Tablet) 25 mcg PO QAMAC [facility] Last Admin: 05/14/22 08:09 Dose: 25 mcg Losartan Potassium (Losartan 50 Mg Tablet) 50 mg PO DAILY [facility] Last Admin: 05/14/22 08:09 Dose: 50 mg Nicotine (Nicotine 21 Mg Patch) 21 mg TOPICAL DAILY@1000 [facility] Last Admin: 05/14/22 10:38 Dose: 21 mg Olanzapine (Olanzapine 5 Mg Tablet) 5 mg PO HSP PRN PRN Reason: Agitation Last Admin: 05/13/22 19:23 Dose: 5 mg Ondansetron HCl (Ondansetron 4 Mg/2 Ml Vial) 4 mg IV Q4HP PRN PRN Reason: Nausea And Vomiting Last Admin: 05/10/22 08:10 Dose: 4 mg Fluvoxamine 50 Mg (Tablet) 1 dose PO [facility] Last Admin: 05/13/22 20:53 Dose: Not Given Linaclotide [Linzess (] 290 Mcg Capsule) 1 dose PO QDAY [facility] Last Admin: 05/14/22 08:11 Dose: Not Given Polyethylene Glycol (Polyethylene Glycol 3350 17 Gm Packet) 17 gm PO DAILYP PRN PRN Reason: Constipation Potassium Chloride (Potassium Chloride 20 Meq Tablet) 40 meq PO UD PRN PRN Reason: Potssium is 3-3.5 Last Admin: 05/10/22 21:42 Dose: 40 meq Potassium Chloride (Potassium Chloride 20 Meq Tablet) 40 meq PO UD PRN PRN Reason: Potassium < 3 Quetiapine Fumarate (Quetiapine 100 Mg Tablet) 400 mg PO [facility] Last Admin: 05/13/22 20:50 Dose: 400 mg Senna (Sennosides 1 Tablet) 2 tab PO DAILYP PRN PRN Reason: Constipation Sodium Chloride (0.9 % Sodium Chloride 10 Ml Syringe) 10 ml IV Q8 [facility] Last Admin: 05/14/22 06:06 Dose: 10 ml A/P Assessment and plan (1) Psychogenic polydipsia: Status: Chronic (2) Hypertension, essential: Status: Chronic (3) Hypothyroidism (acquired): Status: Chronic (4) Diabetes mellitus type 2, controlled: Status: Chronic Qualifiers: Diabetes mellitus terminal carman insulin use: without long-term use Diabetes mellitus complication status: with unspecified complications Qualified Code(s): E11.8 - Type 2 diabetes mellitus with unspecified complications (5) Bipolar I disorder with depression: Status: Acute (6) Dementia: Status: Acute Narrative A/P Narrative: Assessment and Plans: 1. Psychogenic polydipsia: Inpatient med surg 1800cc/day fluid restriction Electrolytes already back to the baseline so there is no need to do daily labs Pending fci placement 2. Hypothyroidism: Continue thyroid replacement therapy 3. T2DM: HgA1c Hold oral hypoglycemics SSI AC HS Accu Chek AC HS Hypoglycemia protocol Diabetic diet Gabapentin 4. Dementia: Pending SNF placement 5. Bipolar depression with anxiety: Seroquel Zyprexa PRN agitation/psychosis Clonazepam PRN anxiety 6. Essential HTN: Losartan Amlodipine GI ppx: not indicated DVT ppx: Lovenox Code status: DNR Prognosis: stable Disposition: inpatient med surg; Pending SNF Time Spent With Patient Time: Total time spent is greater than 50% in coordination of care (as documented) at patient's floor/unit and/or counseling patient: Total time spent with greater than 50% in coordination of care (as documented) at patient's floor/unit and/or counseling patient:: 35 - 50 minutes QUALITY VTE Deep Vein Thrombosis/Pulmonary Embolism Present on Admission: No
[2022-05-14] MEDS: ACETAMINOPHEN 325 MG TABLET PO PRN (19:24)
[2022-05-14] MEDS: hydrOXYzine 25 MG TABLET PO PRN (19:25)
[2022-05-14] MEDS: clonazePAM 1 MG TABLET PO PRN (19:25)
[2022-05-14] MEDS: OLANZapine 5 MG TABLET PO PRN (19:25)
[2022-05-14] MEDS ORDERED: POLYETHYLENE GLYCOL 3350 17 GM PACKET PO PRN (19:33)
[2022-05-14] MEDS: QUEtiapine 100 MG TABLET PO SCH (21:00)
[2022-05-14] MEDS: Fluvoxamine 50 mg tablet PO SCH (21:01)
[2022-05-15] MEDS: 0.9 % SODIUM CHLORIDE 10 ML SYRINGE IV SCH ×3 (05:13→21:11)
[2022-05-15] MEDS: POLYETHYLENE GLYCOL 3350 17 GM PACKET PO PRN (05:20)
[2022-05-15] MEDS: SENNOSIDES 1 TABLET PO PRN ×2 (06:57→21:09)
[2022-05-15] MEDS: LEVOTHYROXINE SODIUM 112 MCG TABLET PO SCH (06:57)
[2022-05-15] MEDS: ACETAMINOPHEN 325 MG TABLET PO PRN (06:57)
[2022-05-15] MEDS: LEVOTHYROXINE 25 MCG TABLET PO SCH (06:57)
[2022-05-15] MEDS: INSULIN LISPRO 1 UNIT/0.01 ML UNIT SQ SCH ×4 (07:22→21:10)
[2022-05-15] MEDS: LOSARTAN 50 MG TABLET PO SCH (08:20)
[2022-05-15] MEDS: ENOXAPARIN 40 MG/0.4 ML SYRINGE SQ SCH (08:20)
[2022-05-15] MEDS: amLODIPine 5 MG TABLET PO SCH (08:21)
[2022-05-15] MEDS: ASPIRIN 81 MG TAB.CHEW PO SCH ×2 (08:21→21:09)
[2022-05-15] MEDS: DOCUSATE SODIUM 100 MG CAPSULE PO SCH ×2 (08:21→21:09)
[2022-05-15] MEDS: clonazePAM 1 MG TABLET PO PRN ×2 (08:21→18:32)
[2022-05-15] MEDS: hydrOXYzine 25 MG TABLET PO PRN ×2 (08:21→18:32)
[2022-05-15] MEDS: GABAPENTIN 300 MG CAPSULE PO SCH ×2 (08:21→21:09)
[2022-05-15] MEDS: OLANZapine 5 MG TABLET PO PRN ×2 (08:21→18:31)
[2022-05-15] MEDS: lamoTRIgine 100 MG TABLET PO SCH (08:21)
[2022-05-15] MEDS: NICOTINE 21 MG PATCH TOPICAL SCH (10:27)
--- NOTE | 2022-05-15 11:47 | Internal Med Progress Note ---
SUBJECTIVE Subjective Patient information: Note initiated : 05/15/22 at 11:46 am Service Date, if different from initiated Date: [] Patient: Cynthia Kirby 72 y/o F admitted on 05/09/22 for Dizzy. Chief Complaint: [] Interval history: Presents ED with dizziness and lightheadedness. Patient felt like she was going to pass out. Denies any headache fever chills nausea or vomiting. Denies any chest pain or shortness of breath. She was found to have sodium of 120, she is chronically low but this is lower than her usual. 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 Patient has recent guardianship and that person has been trying to place the patient in a longterm facility it sounds like she will go to [place] next week. 05/10 Patient had an episode of nausea vomiting after eating breakfast this morning. She says she typically does not eat that much. She has some occasional dizziness lightheadedness. Sodium elevated today faster than expected. We will provide some DDAVP and some hypotonic's fluid. 05/11 Patient feeling little better today. Denies dizziness or lightheadedness. Fluid restrict monitoring sodium closely. Phosphorus low and will replete. Metabolic acidosis. 05/12 Slept better. Feeling little better. Sodium improved as well as acid-base balance. Continue 1800 cc fluid restrict. Case management placement likely tomorrow. 05/13 No overnight event or new complaints. Continue fluid restrict. Awaiting placement. 05/14: No major overnight event. Both sodium and potassium level normalized. We will continue 1800 cc/day fluid restrictions, while awaiting fdc placement. 05/15: No major overnight events. No checking daily labs anymore. We will continue 1800 cc/day fluid restrictions, while awaiting fdc placement. Constitutional Vitals: Vital Signs Temp Pulse Resp BP Pulse Ox O2 Del Method O2 Flow Rate 36.1 C 72 20 160/81 96 0 05/15/22 08:00 05/15/22 08:00 05/15/22 08:00 05/15/22 08:00 05/15/22 08:00 05/15/22 08:00 05/13/22 12:12 Period Temp Pulse Resp BP Sys/Norris Pulse Ox O2 Del Method O2 Flow Rate Last 24 Hr 36.1 C-37.0 C 72-89 16-24 131-160/69-85 95-98 Room Air-Room Air Intake and Output 05/14/22 05/15/22 05/15/22 21:59 05:59 13:59 Intake Total 477 600 Output Total 700 1000 Balance -223 -400 Weight 86.591 kg 86.591 kg Patient Weight 05/16/22 05:59 Weight 86.591 kg Intake & Output: Intake & Output 05/14/22 05/15/22 05/15/22 21:59 05:59 13:59 Intake Total 477 600 Output Total 700 1000 Balance -223 -400 Weight 86.591 kg 86.591 kg Intake: Oral 237 600 GI Tube Flush 240 Output: Void Amount 700 1000 Other: Meal Dinner Breakfast Percent of Meal Consumed 100% 100% Feeding Ability Assist with Tray Set Up Assist with Tray Set Up Urine Appearance Cloudy Cloudy Uretheral (Whipple) Clear Clear Urine Color Bright Yellow Bright Yellow Uretheral (Whipple) Bright Yellow Bright Yellow Urine Odor Normal Normal Stool Size Small Stool Color Black Stool Consistency Soft Formed # Bowel Movements 1 Head Head exam: Present atraumatic and normal inspection Eye Eye exam: Present normal appearance ENT ENT exam: Present mucous membranes moist, normal exam and normal external ear exam Neck Neck exam: Present normal inspection Respiratory Respiratory exam: Present normal respiratory exam Cardiovascular Cardiovascular exam: Present normal rate and rhythm GI/Abdominal GI/Abdominal exam: Present normal bowel sounds Back Exam Back exam: Present normal inspection Neurological Exam Neurological exam: Present alert and oriented X3 Skin Skin exam: Present intact and warm OBJ DATA Labs CBC & Chem 7: 05/09/22 20:42 05/12/22 05:44 Meds: Medications Acetaminophen (Acetaminophen 325 Mg Tablet) 650 mg PO Q6HP PRN; Protocol PRN Reason: Per Pain Protocol/Fever > 101 Last Admin: 05/15/22 06:57 Dose: 650 mg Albuterol/Ipratropium (Ipratropium/Albuterol 3 Ml Ampul.Neb) 3 ml NEB Q4HP PRN PRN Reason: Shortness Of Breath Amlodipine Besylate (Amlodipine 5 Mg Tablet) 5 mg PO DAILY [facility] Last Admin: 05/15/22 08:21 Dose: 5 mg Aspirin (Aspirin 81 Mg Tab.Chew) 81 mg PO BID [facility] Last Admin: 05/15/22 08:21 Dose: 81 mg Clonazepam (Clonazepam 1 Mg Tablet) 1 mg PO TIDP PRN PRN Reason: Agitation Last Admin: 05/15/22 08:21 Dose: 1 mg Dextrose (Dextrose 50% 50 Ml Vial) 0 ml IV UD PRN PRN Reason: Per Sliding Scale Diagnostic Test (Pha) (Accu-Chek 1 Each Strip) 1 each FS [facility] Last Admin: 05/15/22 10:36 Dose: 1 each Docusate Sodium (Docusate Sodium 100 Mg Capsule) 100 mg PO BID [facility] Last Admin: 05/15/22 08:21 Dose: 100 mg Enoxaparin Sodium (Enoxaparin 40 Mg/0.4 Ml Syringe) 40 mg SQ DAILY [facility] Last Admin: 05/15/22 08:20 Dose: 40 mg Gabapentin (Gabapentin 300 Mg Capsule) 300 mg PO BID [facility] Last Admin: 05/15/22 08:21 Dose: 300 mg Glucose (Dextrose 31 Gm Oral.Susp) 15 gm PO PRN PRN PRN Reason: Hypoglycemia Hydralazine HCl (Hydralazine 20 Mg/Ml Vial) 0 mg IV Q2HP PRN PRN Reason: Hypertension Hydroxyzine HCl (Hydroxyzine 25 Mg Tablet) 50 mg PO TIDP PRN PRN Reason: anxiety Last Admin: 05/15/22 08:21 Dose: 50 mg Potassium Chloride 40 meq/ (Dextrose) 520 mls @ 130 mls/hr IV UD PRN PRN Reason: Potassium < 3 Magnesium Sulfate (Magnesium Sulfate) 2 gm in 50 mls @ 50 mls/hr IV UD PRN PRN Reason: Magnesium </= 1.6 Insulin Human Lispro (Insulin Lispro 1 Unit/0.01 Ml Unit) 0 unit SQ [facility]; Protocol Last Admin: 05/15/22 10:43 Dose: Not Given Labetalol HCl (Labetalol 5 Mg/Ml Ml) 0 mg IV Q2HP PRN PRN Reason: Hypertension Lamotrigine (Lamotrigine 100 Mg Tablet) 100 mg PO DAILY [facility] Last Admin: 05/15/22 08:21 Dose: 100 mg Levothyroxine Sodium (Levothyroxine Sodium 112 Mcg Tablet) 112 mcg PO QAMAC [facility] Last Admin: 05/15/22 06:57 Dose: 112 mcg Levothyroxine Sodium (Levothyroxine 25 Mcg Tablet) 25 mcg PO QAMAC [facility] Last Admin: 05/15/22 06:57 Dose: 25 mcg Losartan Potassium (Losartan 50 Mg Tablet) 50 mg PO DAILY [facility] Last Admin: 05/15/22 08:20 Dose: 50 mg Nicotine (Nicotine 21 Mg Patch) 21 mg TOPICAL DAILY@1000 [facility] Last Admin: 05/15/22 10:27 Dose: 21 mg Olanzapine (Olanzapine 5 Mg Tablet) 5 mg PO HSP PRN PRN Reason: Agitation Last Admin: 05/15/22 08:21 Dose: 5 mg Ondansetron HCl (Ondansetron 4 Mg/2 Ml Vial) 4 mg IV Q4HP PRN PRN Reason: Nausea And Vomiting Last Admin: 05/10/22 08:10 Dose: 4 mg Fluvoxamine 50 Mg (Tablet) 1 dose PO [facility] Last Admin: 05/14/22 21:01 Dose: Not Given Linaclotide [Linzess (] 290 Mcg Capsule) 1 dose PO QDAY [facility] Last Admin: 05/15/22 08:22 Dose: Not Given Polyethylene Glycol (Polyethylene Glycol 3350 17 Gm Packet) 17 gm PO DAILYP PRN PRN Reason: Constipation Last Admin: 05/15/22 05:20 Dose: 17 gm Polyethylene Glycol (Polyethylene Glycol 3350 17 Gm Packet) 17 gm PO DAILYP PRN PRN Reason: Constipation Potassium Chloride (Potassium Chloride 20 Meq Tablet) 40 meq PO UD PRN PRN Reason: Potssium is 3-3.5 Last Admin: 05/10/22 21:42 Dose: 40 meq Potassium Chloride (Potassium Chloride 20 Meq Tablet) 40 meq PO UD PRN PRN Reason: Potassium < 3 Quetiapine Fumarate (Quetiapine 100 Mg Tablet) 400 mg PO [facility] Last Admin: 05/14/22 21:00 Dose: 400 mg Senna (Sennosides 1 Tablet) 2 tab PO DAILYP PRN PRN Reason: Constipation Last Admin: 05/15/22 06:57 Dose: 2 tab Sodium Chloride (0.9 % Sodium Chloride 10 Ml Syringe) 10 ml IV Q8 [facility] Last Admin: 05/15/22 05:13 Dose: 10 ml A/P Assessment and plan (1) Psychogenic polydipsia: Status: Chronic (2) Hypertension, essential: Status: Chronic (3) Hypothyroidism (acquired): Status: Chronic (4) Diabetes mellitus type 2, controlled: Status: Chronic Qualifiers: Diabetes mellitus parking ramp attendant insulin use: without mcfp use Diabetes mellitus complication status: with unspecified complications Qualified Code(s): E11.8 - Type 2 diabetes mellitus with unspecified complications (5) Bipolar I disorder with depression: Status: Acute (6) Dementia: Status: Acute Narrative A/P Narrative: Assessment and Plans: 1. Psychogenic polydipsia: Inpatient med surg 1800cc/day fluid restriction Electrolytes already back to the baseline so there is no need to do daily labs Pending fdc placement 2. Hypothyroidism: Continue thyroid replacement therapy 3. T2DM: HgA1c Hold oral hypoglycemics SSI AC HS Accu Chek AC HS Hypoglycemia protocol Diabetic diet Gabapentin 4. Dementia: Pending SNF placement 5. Bipolar depression with anxiety: Seroquel Zyprexa PRN agitation/psychosis Clonazepam PRN anxiety 6. Essential HTN: Losartan Amlodipine GI ppx: not indicated DVT ppx: Lovenox Code status: DNR Prognosis: stable Disposition: inpatient med surg; Pending SNF Time Spent With Patient Time: Total time spent is greater than 50% in coordination of care (as documented) at patient's floor/unit and/or counseling patient: Total time spent with greater than 50% in coordination of care (as documented) at patient's floor/unit and/or counseling patient:: 35 - 50 minutes QUALITY VTE Deep Vein Thrombosis/Pulmonary Embolism Present on Admission: No
[2022-05-15] MEDS ORDERED: OLANZapine 5 MG TABLET PO PRN (14:58)
[2022-05-15] MEDS ORDERED: OLANZapine 5 MG TABLET PO ONE (21:00)
[2022-05-15] MEDS: QUEtiapine 100 MG TABLET PO SCH (21:09)
[2022-05-15] MEDS: Fluvoxamine 50 mg tablet PO SCH (21:11)
[2022-05-16] MEDS: 0.9 % SODIUM CHLORIDE 10 ML SYRINGE IV SCH ×3 (05:59→20:06)
[2022-05-16] MEDS: LEVOTHYROXINE SODIUM 112 MCG TABLET PO SCH (06:50)
[2022-05-16] MEDS: clonazePAM 1 MG TABLET PO PRN ×2 (06:50→16:53)
[2022-05-16] MEDS: hydrOXYzine 25 MG TABLET PO PRN ×2 (06:51→16:53)
[2022-05-16] MEDS: OLANZapine 5 MG TABLET PO PRN ×2 (06:51→16:53)
[2022-05-16] MEDS: ACETAMINOPHEN 325 MG TABLET PO PRN (06:51)
[2022-05-16] MEDS: LEVOTHYROXINE 25 MCG TABLET PO SCH (06:51)
[2022-05-16] MEDS: INSULIN LISPRO 1 UNIT/0.01 ML UNIT SQ SCH ×4 (06:58→20:05)
[2022-05-16] MEDS: amLODIPine 5 MG TABLET PO SCH (09:12)
[2022-05-16] MEDS: ASPIRIN 81 MG TAB.CHEW PO SCH ×2 (09:12→20:04)
[2022-05-16] MEDS: GABAPENTIN 300 MG CAPSULE PO SCH ×2 (09:12→20:04)
[2022-05-16] MEDS: DOCUSATE SODIUM 100 MG CAPSULE PO SCH ×2 (09:12→20:05)
[2022-05-16] MEDS: LOSARTAN 50 MG TABLET PO SCH (09:13)
[2022-05-16] MEDS: lamoTRIgine 100 MG TABLET PO SCH (09:13)
[2022-05-16] MEDS: ENOXAPARIN 40 MG/0.4 ML SYRINGE SQ SCH (09:14)
[2022-05-16] MEDS: NICOTINE 21 MG PATCH TOPICAL SCH (09:14)
--- NOTE | 2022-05-16 11:28 | Internal Med Progress Note ---
SUBJECTIVE Subjective Patient information: Note initiated : 05/16/22 at 11:27 am Service Date, if different from initiated Date: [] Patient: Cynthia Kirby 72 y/o F admitted on 05/09/22 for Dizzy. Chief Complaint: [] Interval history: Presents ED with dizziness and lightheadedness. Patient felt like she was going to pass out. Denies any headache fever chills nausea or vomiting. Denies any chest pain or shortness of breath. She was found to have sodium of 120, she is chronically low but this is lower than her usual. 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 Patient has recent guardianship and that person has been trying to place the patient in a intermediate facility it sounds like she will go to [place] next week. 05/10 Patient had an episode of nausea vomiting after eating breakfast this morning. She says she typically does not eat that much. She has some occasional dizziness lightheadedness. Sodium elevated today faster than expected. We will provide some DDAVP and some hypotonic's fluid. 05/11 Patient feeling little better today. Denies dizziness or lightheadedness. Fluid restrict monitoring sodium closely. Phosphorus low and will replete. Metabolic acidosis. 05/12 Slept better. Feeling little better. Sodium improved as well as acid-base balance. Continue 1800 cc fluid restrict. Case management placement likely tomorrow. 05/13 No overnight event or new complaints. Continue fluid restrict. Awaiting placement. 05/14: No major overnight event. Both sodium and potassium level normalized. We will continue 1800 cc/day fluid restrictions, while awaiting prison placement. 05/15: No major overnight events. No checking daily labs anymore. We will continue 1800 cc/day fluid restrictions, while awaiting prison placement. 05/16: No major overnight events. No checking daily labs anymore. We will continue 1800 cc/day fluid restrictions, while awaiting prison placement. Constitutional Vitals: Vital Signs Temp Pulse Resp BP Pulse Ox O2 Del Method O2 Flow Rate 36.2 C 82 18 144/80 95 0 05/16/22 11:17 05/16/22 11:17 05/16/22 11:17 05/16/22 11:17 05/16/22 11:17 05/16/22 11:17 05/13/22 12:12 Period Temp Pulse Resp BP Sys/Norris Pulse Ox O2 Del Method O2 Flow Rate Last 24 Hr 36.2 C-37.1 C 70-83 18-20 123-148/66-80 95-98 Room Air-Room Air Intake and Output 05/15/22 05/16/22 05/16/22 21:59 05:59 13:59 Intake Total 540 800 360 Output Total 1250 1350 Balance -710 -550 360 Weight 86.863 kg Intake & Output: Intake & Output 05/15/22 05/16/22 05/16/22 21:59 05:59 13:59 Intake Total 540 800 360 Output Total 1250 1350 Balance -710 -550 360 Weight 86.863 kg Intake: Oral 540 800 360 Output: Urine Catheter Amount 1350 Void Amount 1250 Other: Meal Lunch Breakfast Percent of Meal Consumed 100% 100% Feeding Ability Independent Urine Appearance Cloudy Clear Clear Uretheral ([place]) Cloudy Clear Urine Color Bright Yellow Bright Yellow Bright Yellow Uretheral ([place]) Bright Yellow Bright Yellow Stool Size Smear Stool Color Brown Stool Consistency Soft Head Head exam: Present atraumatic and normal inspection Eye Eye exam: Present normal appearance ENT ENT exam: Present mucous membranes moist, normal exam and normal external ear exam Neck Neck exam: Present normal inspection Respiratory Respiratory exam: Present normal respiratory exam Cardiovascular Cardiovascular exam: Present normal rate and rhythm GI/Abdominal GI/Abdominal exam: Present normal bowel sounds Back Exam Back exam: Present normal inspection Neurological Exam Neurological exam: Present alert and oriented X3 Skin Skin exam: Present intact and warm OBJ DATA Labs CBC & Chem 7: 05/09/22 20:42 05/12/22 05:44 Meds: Medications Acetaminophen (Acetaminophen 325 Mg Tablet) 650 mg PO Q6HP PRN; Protocol PRN Reason: Per Pain Protocol/Fever > 101 Last Admin: 05/16/22 06:51 Dose: 650 mg Albuterol/Ipratropium (Ipratropium/Albuterol 3 Ml Ampul.Neb) 3 ml NEB Q4HP PRN PRN Reason: Shortness Of Breath Amlodipine Besylate (Amlodipine 5 Mg Tablet) 5 mg PO DAILY [facility] Last Admin: 05/16/22 09:12 Dose: 5 mg Aspirin (Aspirin 81 Mg Tab.Chew) 81 mg PO BID [facility] Last Admin: 05/16/22 09:12 Dose: 81 mg Clonazepam (Clonazepam 1 Mg Tablet) 1 mg PO TIDP PRN PRN Reason: Agitation Last Admin: 05/16/22 06:50 Dose: 1 mg Dextrose (Dextrose 50% 50 Ml Vial) 0 ml IV UD PRN PRN Reason: Per Sliding Scale Diagnostic Test (Pha) (Accu-Chek 1 Each Strip) 1 each FS [facility] Last Admin: 05/16/22 06:55 Dose: 1 each Docusate Sodium (Docusate Sodium 100 Mg Capsule) 100 mg PO BID [facility] Last Admin: 05/16/22 09:12 Dose: 100 mg Enoxaparin Sodium (Enoxaparin 40 Mg/0.4 Ml Syringe) 40 mg SQ DAILY [facility] Last Admin: 05/16/22 09:14 Dose: 40 mg Gabapentin (Gabapentin 300 Mg Capsule) 300 mg PO BID [facility] Last Admin: 05/16/22 09:12 Dose: 300 mg Glucose (Dextrose 31 Gm Oral.Susp) 15 gm PO PRN PRN PRN Reason: Hypoglycemia Hydralazine HCl (Hydralazine 20 Mg/Ml Vial) 0 mg IV Q2HP PRN PRN Reason: Hypertension Hydroxyzine HCl (Hydroxyzine 25 Mg Tablet) 50 mg PO TIDP PRN PRN Reason: anxiety Last Admin: 05/16/22 06:51 Dose: 50 mg Potassium Chloride 40 meq/ (Dextrose) 520 mls @ 130 mls/hr IV UD PRN PRN Reason: Potassium < 3 Magnesium Sulfate (Magnesium Sulfate) 2 gm in 50 mls @ 50 mls/hr IV UD PRN PRN Reason: Magnesium </= 1.6 Insulin Human Lispro (Insulin Lispro 1 Unit/0.01 Ml Unit) 0 unit SQ [facility]; Protocol Last Admin: 05/16/22 06:58 Dose: Not Given Labetalol HCl (Labetalol 5 Mg/Ml Ml) 0 mg IV Q2HP PRN PRN Reason: Hypertension Lamotrigine (Lamotrigine 100 Mg Tablet) 100 mg PO DAILY [facility] Last Admin: 05/16/22 09:13 Dose: 100 mg Levothyroxine Sodium (Levothyroxine Sodium 112 Mcg Tablet) [facility] Last Admin: 05/16/22 06:50 Dose: 112 mcg Levothyroxine Sodium (Levothyroxine 25 Mcg Tablet) 25 mcg PO QAMAC [facility] Last Admin: 05/16/22 06:51 Dose: 25 mcg Losartan Potassium (Losartan 50 Mg Tablet) 50 mg PO DAILY [facility] Last Admin: 05/16/22 09:13 Dose: 50 mg Nicotine (Nicotine 21 Mg Patch) 21 mg TOPICAL DAILY@1000 [facility] Last Admin: 05/16/22 09:14 Dose: 21 mg Olanzapine (Olanzapine 5 Mg Tablet) 5 mg PO HSP PRN PRN Reason: aggitation Last Admin: 05/16/22 06:51 Dose: 5 mg Ondansetron HCl (Ondansetron 4 Mg/2 Ml Vial) 4 mg IV Q4HP PRN PRN Reason: Nausea And Vomiting Last Admin: 05/10/22 08:10 Dose: 4 mg Fluvoxamine 50 Mg (Tablet) 1 dose PO [facility] Last Admin: 05/15/22 21:11 Dose: Not Given Linaclotide [Linzess (] 290 Mcg Capsule) 1 dose PO QDAY [facility] Last Admin: 05/16/22 09:00 Dose: Not Given Polyethylene Glycol (Polyethylene Glycol 3350 17 Gm Packet) 17 gm PO DAILYP PRN PRN Reason: Constipation Last Admin: 05/15/22 05:20 Dose: 17 gm Polyethylene Glycol (Polyethylene Glycol 3350 17 Gm Packet) 17 gm PO DAILYP PRN PRN Reason: Constipation Potassium Chloride (Potassium Chloride 20 Meq Tablet) 40 meq PO UD PRN PRN Reason: Potssium is 3-3.5 Last Admin: 05/10/22 21:42 Dose: 40 meq Potassium Chloride (Potassium Chloride 20 Meq Tablet) 40 meq PO UD PRN PRN Reason: Potassium < 3 Quetiapine Fumarate (Quetiapine 100 Mg Tablet) 400 mg PO [facility] Last Admin: 05/15/22 21:09 Dose: 400 mg Senna (Sennosides 1 Tablet) 2 tab PO DAILYP PRN PRN Reason: Constipation Last Admin: 05/15/22 21:09 Dose: 2 tab Sodium Chloride (0.9 % Sodium Chloride 10 Ml Syringe) 10 ml IV Q8 [facility] Last Admin: 05/16/22 05:59 Dose: Not Given A/P Assessment and plan (1) Psychogenic polydipsia: Status: Chronic (2) Hypertension, essential: Status: Chronic (3) Hypothyroidism (acquired): Status: Chronic (4) Diabetes mellitus type 2, controlled: Status: Chronic Qualifiers: Diabetes mellitus long term care administrator insulin use: without long term care administrator use Diabetes mellitus complication status: with unspecified complications Qualified Code(s): E11.8 - Type 2 diabetes mellitus with unspecified complications (5) Bipolar I disorder with depression: Status: Acute (6) Dementia: Status: Acute Narrative A/P Narrative: Assessment and Plans: 1. Psychogenic polydipsia: Inpatient med surg 1800cc/day fluid restriction Electrolytes already back to the baseline so there is no need to do daily labs Pending prison placement 2. Hypothyroidism: Continue thyroid replacement therapy 3. T2DM: HgA1c Hold oral hypoglycemics SSI AC HS Accu Chek AC HS Hypoglycemia protocol Diabetic diet Gabapentin 4. Dementia: Pending SNF placement 5. Bipolar depression with anxiety: Seroquel Zyprexa PRN agitation/psychosis Clonazepam PRN anxiety 6. Essential HTN: Losartan Amlodipine GI ppx: not indicated DVT ppx: Lovenox Code status: DNR Prognosis: stable Disposition: inpatient med surg; Pending SNF Time Spent With Patient Time: Total time spent is greater than 50% in coordination of care (as documented) at patient's floor/unit and/or counseling patient: Total time spent with greater than 50% in coordination of care (as documented) at patient's floor/unit and/or counseling patient:: 35 - 50 minutes QUALITY VTE Deep Vein Thrombosis/Pulmonary Embolism Present on Admission: No
[2022-05-16] MEDS: QUEtiapine 100 MG TABLET PO SCH (20:05)
[2022-05-16] MEDS: Fluvoxamine 50 mg tablet PO SCH (20:05)
[2022-05-17] MEDS: 0.9 % SODIUM CHLORIDE 10 ML SYRINGE IV SCH ×3 (05:15→20:48)
[2022-05-17] MEDS: clonazePAM 1 MG TABLET PO PRN ×3 (07:23→21:02)
[2022-05-17] MEDS: OLANZapine 5 MG TABLET PO PRN ×2 (07:24→15:06)
[2022-05-17] MEDS: hydrOXYzine 25 MG TABLET PO PRN ×3 (07:24→21:02)
[2022-05-17] MEDS: LEVOTHYROXINE 25 MCG TABLET PO SCH (07:24)
[2022-05-17] MEDS: LEVOTHYROXINE SODIUM 112 MCG TABLET PO SCH (07:24)
[2022-05-17] MEDS: ACETAMINOPHEN 325 MG TABLET PO PRN (07:24)
[2022-05-17] MEDS: INSULIN LISPRO 1 UNIT/0.01 ML UNIT SQ SCH ×4 (07:32→20:48)
[2022-05-17] MEDS: GABAPENTIN 300 MG CAPSULE PO SCH ×2 (10:03→21:02)
[2022-05-17] MEDS: DOCUSATE SODIUM 100 MG CAPSULE PO SCH ×2 (10:03→21:02)
[2022-05-17] MEDS: LOSARTAN 50 MG TABLET PO SCH (10:03)
[2022-05-17] MEDS: ASPIRIN 81 MG TAB.CHEW PO SCH ×2 (10:03→21:02)
[2022-05-17] MEDS: lamoTRIgine 100 MG TABLET PO SCH (10:04)
[2022-05-17] MEDS: amLODIPine 5 MG TABLET PO SCH (10:04)
[2022-05-17] MEDS: ENOXAPARIN 40 MG/0.4 ML SYRINGE SQ SCH (10:08)
[2022-05-17] MEDS: NICOTINE 21 MG PATCH TOPICAL SCH (10:10)
--- NOTE | 2022-05-17 10:24 | Internal Med Progress Note ---
SUBJECTIVE Subjective Patient information: Note initiated : 05/17/22 at 10:22 am Service Date, if different from initiated Date: [] Patient: Cynthia Kirby 72 y/o F admitted on 05/09/22 for Dizzy. Chief Complaint: [] Interval history: Presents ED with dizziness and lightheadedness. Patient felt like she was going to pass out. Denies any headache fever chills nausea or vomiting. Denies any chest pain or shortness of breath. She was found to have sodium of 120, she is chronically low but this is lower than her usual. 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 Patient has recent guardianship and that person has been trying to place the patient in a shelter facility it sounds like she will go to [place] next week. 05/10 Patient had an episode of nausea vomiting after eating breakfast this morning. She says she typically does not eat that much. She has some occasional dizziness lightheadedness. Sodium elevated today faster than expected. We will provide some DDAVP and some hypotonic's fluid. 05/11 Patient feeling little better today. Denies dizziness or lightheadedness. Fluid restrict monitoring sodium closely. Phosphorus low and will replete. Metabolic acidosis. 05/12 Slept better. Feeling little better. Sodium improved as well as acid-base balance. Continue 1800 cc fluid restrict. Case management placement likely tomorrow. 05/13 No overnight event or new complaints. Continue fluid restrict. Awaiting placement. 05/14: No major overnight event. Both sodium and potassium level normalized. We will continue 1800 cc/day fluid restrictions, while awaiting detention placement. 05/15: No major overnight events. No checking daily labs anymore. We will continue 1800 cc/day fluid restrictions, while awaiting detention placement. 05/16: No major overnight events. No checking daily labs anymore. We will continue 1800 cc/day fluid restrictions, while awaiting detention placement. 05/17: No major overnight events. No checking daily labs anymore. We will continue 1800 cc/day fluid restrictions, while awaiting detention placement. Constitutional Vitals: Vital Signs Temp Pulse Resp BP Pulse Ox O2 Del Method O2 Flow Rate 36.9 C 78 20 155/83 95 0 05/17/22 07:15 05/17/22 07:15 05/17/22 07:15 05/17/22 07:15 05/17/22 07:20 05/17/22 07:20 05/13/22 12:12 Period Temp Pulse Resp BP Sys/Norris Pulse Ox O2 Del Method O2 Flow Rate Last 24 Hr 36.2 C-37.2 C 78-83 16-20 129-155/70-83 94-96 Room Air-Room Air Intake and Output 05/16/22 05/17/22 05/17/22 21:59 05:59 13:59 Intake Total 730 0 250 Output Total 1360 1000 Balance -630 -1000 250 Weight 87.345 kg Intake & Output: Intake & Output 05/16/22 05/17/22 05/17/22 21:59 05:59 13:59 Intake Total 730 0 250 Output Total 1360 1000 Balance -630 -1000 250 Weight 87.345 kg Intake: Oral 730 0 250 Output: Urine Catheter Amount 1110 Void Amount 250 1000 Other: Meal Dinner Breakfast Percent of Meal Consumed 100% 100% Urine Appearance Cloudy Clear Urine Color Bright Yellow Bright Yellow Urine Odor Normal Head Head exam: Present atraumatic and normal inspection Eye Eye exam: Present normal appearance ENT ENT exam: Present mucous membranes moist, normal exam and normal external ear exam Neck Neck exam: Present normal inspection Respiratory Respiratory exam: Present normal respiratory exam Cardiovascular Cardiovascular exam: Present normal rate and rhythm GI/Abdominal GI/Abdominal exam: Present normal bowel sounds Back Exam Back exam: Present normal inspection Neurological Exam Neurological exam: Present alert and oriented X3 Skin Skin exam: Present intact and warm OBJ DATA Labs CBC & Chem 7: 05/09/22 20:42 05/12/22 05:44 Meds: Medications Acetaminophen (Acetaminophen 325 Mg Tablet) 650 mg PO Q6HP PRN; Protocol PRN Reason: Per Pain Protocol/Fever > 101 Last Admin: 05/17/22 07:24 Dose: 650 mg Albuterol/Ipratropium (Ipratropium/Albuterol 3 Ml Ampul.Neb) 3 ml NEB Q4HP PRN PRN Reason: Shortness Of Breath Amlodipine Besylate (Amlodipine 5 Mg Tablet) 5 mg PO DAILY [facility] Last Admin: 05/17/22 10:04 Dose: 5 mg Aspirin (Aspirin 81 Mg Tab.Chew) 81 mg PO BID [facility] Last Admin: 05/17/22 10:03 Dose: 81 mg Clonazepam (Clonazepam 1 Mg Tablet) 1 mg PO TIDP PRN PRN Reason: Agitation Last Admin: 05/17/22 07:23 Dose: 1 mg Dextrose (Dextrose 50% 50 Ml Vial) 0 ml IV UD PRN PRN Reason: Per Sliding Scale Diagnostic Test (Pha) (Accu-Chek 1 Each Strip) 1 each FS [facility] Last Admin: 05/17/22 07:30 Dose: 1 each Docusate Sodium (Docusate Sodium 100 Mg Capsule) 100 mg PO BID [facility] Last Admin: 05/17/22 10:03 Dose: 100 mg Enoxaparin Sodium (Enoxaparin 40 Mg/0.4 Ml Syringe) 40 mg SQ DAILY [facility] Last Admin: 05/17/22 10:08 Dose: 40 mg Gabapentin (Gabapentin 300 Mg Capsule) 300 mg PO BID [facility] Last Admin: 05/17/22 10:03 Dose: 300 mg Glucose (Dextrose 31 Gm Oral.Susp) 15 gm PO PRN PRN PRN Reason: Hypoglycemia Hydralazine HCl (Hydralazine 20 Mg/Ml Vial) 0 mg IV Q2HP PRN PRN Reason: Hypertension Hydroxyzine HCl (Hydroxyzine 25 Mg Tablet) 50 mg PO TIDP PRN PRN Reason: anxiety Last Admin: 05/17/22 07:24 Dose: 50 mg Potassium Chloride 40 meq/ (Dextrose) 520 mls @ 130 mls/hr IV UD PRN PRN Reason: Potassium < 3 Magnesium Sulfate (Magnesium Sulfate) 2 gm in 50 mls @ 50 mls/hr IV UD PRN PRN Reason: Magnesium </= 1.6 Insulin Human Lispro (Insulin Lispro 1 Unit/0.01 Ml Unit) 0 unit SQ [facility]; Protocol Last Admin: 05/17/22 07:32 Dose: Not Given Labetalol HCl (Labetalol 5 Mg/Ml Ml) 0 mg IV Q2HP PRN PRN Reason: Hypertension Lamotrigine (Lamotrigine 100 Mg Tablet) 100 mg PO DAILY [facility] Last Admin: 05/17/22 10:04 Dose: 100 mg Levothyroxine Sodium (Levothyroxine Sodium 112 Mcg Tablet) 112 mcg PO QAMAC [facility] Last Admin: 05/17/22 07:24 Dose: 112 mcg Levothyroxine Sodium (Levothyroxine 25 Mcg Tablet) 25 mcg PO QAMAC [facility] Last Admin: 05/17/22 07:24 Dose: 25 mcg Losartan Potassium (Losartan 50 Mg Tablet) 50 mg PO DAILY [facility] Last Admin: 05/17/22 10:03 Dose: 50 mg Nicotine (Nicotine 21 Mg Patch) 21 mg TOPICAL DAILY@1000 [facility] Last Admin: 05/17/22 10:10 Dose: 21 mg Olanzapine (Olanzapine 5 Mg Tablet) 5 mg PO HSP PRN PRN Reason: aggitation Last Admin: 05/17/22 07:24 Dose: 5 mg Ondansetron HCl (Ondansetron 4 Mg/2 Ml Vial) 4 mg IV Q4HP PRN PRN Reason: Nausea And Vomiting Last Admin: 05/10/22 08:10 Dose: 4 mg Fluvoxamine 50 Mg (Tablet) 1 dose PO [facility] Last Admin: 05/16/22 20:05 Dose: Not Given Linaclotide [Linzess (] 290 Mcg Capsule) 1 dose PO QDAY [facility] Last Admin: 05/17/22 08:10 Dose: Not Given Polyethylene Glycol (Polyethylene Glycol 3350 17 Gm Packet) 17 gm PO DAILYP PRN PRN Reason: Constipation Last Admin: 05/15/22 05:20 Dose: 17 gm Polyethylene Glycol (Polyethylene Glycol 3350 17 Gm Packet) 17 gm PO DAILYP PRN PRN Reason: Constipation Potassium Chloride (Potassium Chloride 20 Meq Tablet) 40 meq PO UD PRN PRN Reason: Potssium is 3-3.5 Last Admin: 05/10/22 21:42 Dose: 40 meq Potassium Chloride (Potassium Chloride 20 Meq Tablet) 40 meq PO UD PRN PRN Reason: Potassium < 3 Quetiapine Fumarate (Quetiapine 100 Mg Tablet) 400 mg PO [facility] Last Admin: 05/16/22 20:05 Dose: 400 mg Senna (Sennosides 1 Tablet) 2 tab PO DAILYP PRN PRN Reason: Constipation Last Admin: 05/15/22 21:09 Dose: 2 tab Sodium Chloride (0.9 % Sodium Chloride 10 Ml Syringe) 10 ml IV Q8 [facility] Last Admin: 05/17/22 05:15 Dose: Not Given A/P Assessment and plan (1) Psychogenic polydipsia: Status: Chronic (2) Hypertension, essential: Status: Chronic (3) Hypothyroidism (acquired): Status: Chronic (4) Diabetes mellitus type 2, controlled: Status: Chronic Qualifiers: Diabetes mellitus oysterman insulin use: without oysterman use Diabetes mellitus complication status: with unspecified complications Qualified Code(s): E11.8 - Type 2 diabetes mellitus with unspecified complications (5) Bipolar I disorder with depression: Status: Acute (6) Dementia: Status: Acute Narrative A/P Narrative: Assessment and Plans: 1. Psychogenic polydipsia: Inpatient med surg 1800cc/day fluid restriction Electrolytes already back to the baseline so there is no need to do daily labs Pending detention placement 2. Hypothyroidism: Continue thyroid replacement therapy 3. T2DM: HgA1c Hold oral hypoglycemics SSI AC HS Accu Chek AC HS Hypoglycemia protocol Diabetic diet Gabapentin 4. Dementia: Pending SNF placement 5. Bipolar depression with anxiety: Seroquel Zyprexa PRN agitation/psychosis Clonazepam PRN anxiety 6. Essential HTN: Losartan Amlodipine GI ppx: not indicated DVT ppx: Lovenox Code status: DNR Prognosis: stable Disposition: inpatient med surg; Pending SNF Time Spent With Patient Time: Total time spent is greater than 50% in coordination of care (as documented) at patient's floor/unit and/or counseling patient: Total time spent with greater than 50% in coordination of care (as documented) at patient's floor/unit and/or counseling patient:: 35 - 50 minutes QUALITY VTE Deep Vein Thrombosis/Pulmonary Embolism Present on Admission: No
[2022-05-17] MEDS: Fluvoxamine 50 mg tablet PO SCH (20:48)
[2022-05-17] MEDS: QUEtiapine 100 MG TABLET PO SCH (21:02)
[2022-05-18] MEDS: 0.9 % SODIUM CHLORIDE 10 ML SYRINGE IV SCH ×2 (04:35→12:50)
[2022-05-18] MEDS: GABAPENTIN 300 MG CAPSULE PO SCH ×2 (09:13→20:46)
[2022-05-18] MEDS: DOCUSATE SODIUM 100 MG CAPSULE PO SCH ×2 (09:13→20:46)
[2022-05-18] MEDS: lamoTRIgine 100 MG TABLET PO SCH (09:13)
[2022-05-18] MEDS: LOSARTAN 50 MG TABLET PO SCH (09:13)
[2022-05-18] MEDS: amLODIPine 5 MG TABLET PO SCH (09:13)
[2022-05-18] MEDS: LEVOTHYROXINE SODIUM 112 MCG TABLET PO SCH (09:13)
[2022-05-18] MEDS: ENOXAPARIN 40 MG/0.4 ML SYRINGE SQ SCH (09:14)
[2022-05-18] MEDS: NICOTINE 21 MG PATCH TOPICAL SCH (09:15)
[2022-05-18] MEDS: ASPIRIN 81 MG TAB.CHEW PO SCH ×2 (09:15→20:45)
[2022-05-18] MEDS: INSULIN LISPRO 1 UNIT/0.01 ML UNIT SQ SCH ×4 (09:15→20:27)
[2022-05-18] MEDS: LEVOTHYROXINE 25 MCG TABLET PO SCH (09:20)
[2022-05-18] MEDS: hydrOXYzine 25 MG TABLET PO PRN ×2 (11:04→19:09)
--- NOTE | 2022-05-18 11:17 | Internal Med Progress Note ---
SUBJECTIVE Subjective Patient information: Note initiated : 05/18/22 at 11:16 am Service Date, if different from initiated Date: [] Patient: Cynthia Kirby 72 y/o F admitted on 05/09/22 for Dizzy. Chief Complaint: [] Interval history: Presents ED with dizziness and lightheadedness. Patient felt like she was going to pass out. Denies any headache fever chills nausea or vomiting. Denies any chest pain or shortness of breath. She was found to have sodium of 120, she is chronically low but this is lower than her usual. 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 Patient has recent guardianship and that person has been trying to place the patient in a nursing home facility it sounds like she will go to [place] next week. 05/10 Patient had an episode of nausea vomiting after eating breakfast this morning. She says she typically does not eat that much. She has some occasional dizziness lightheadedness. Sodium elevated today faster than expected. We will provide some DDAVP and some hypotonic's fluid. 05/11 Patient feeling little better today. Denies dizziness or lightheadedness. Fluid restrict monitoring sodium closely. Phosphorus low and will replete. Metabolic acidosis. 05/12 Slept better. Feeling little better. Sodium improved as well as acid-base balance. Continue 1800 cc fluid restrict. Case management placement likely tomorrow. 05/13 No overnight event or new complaints. Continue fluid restrict. Awaiting placement. 05/14: No major overnight event. Both sodium and potassium level normalized. We will continue 1800 cc/day fluid restrictions, while awaiting chcf placement. 05/15: No major overnight events. No checking daily labs anymore. We will continue 1800 cc/day fluid restrictions, while awaiting chcf placement. 05/16: No major overnight events. No checking daily labs anymore. We will continue 1800 cc/day fluid restrictions, while awaiting chcf placement. 05/17: No major overnight events. No checking daily labs anymore. We will continue 1800 cc/day fluid restrictions, while awaiting chcf placement. 05/18: No major overnight events. No checking daily labs anymore. We will continue 1800 cc/day fluid restrictions, while awaiting chcf placement. Constitutional Vitals: Vital Signs Temp Pulse Resp BP Pulse Ox O2 Del Method O2 Flow Rate 36.6 C 70 18 161/96 95 0 05/18/22 07:12 05/18/22 07:12 05/18/22 07:12 05/18/22 07:12 05/18/22 07:12 05/18/22 07:12 05/13/22 12:12 Period Temp Pulse Resp BP Sys/Norris Pulse Ox O2 Del Method O2 Flow Rate Last 24 Hr 36.3 C-36.7 C 70-79 14-18 116-174/67-96 95-97 Room Air-Room Air Intake and Output 05/17/22 05/18/22 05/18/22 21:59 05:59 13:59 Intake Total 880 237 240 Output Total 2111 303 9687 Balance -780 -313 -810 Weight 87.26 kg Intake & Output: Intake & Output 05/17/22 05/18/22 05/18/22 21:59 05:59 13:59 Intake Total 880 237 240 Output Total 7018 347 0849 Balance -780 -313 -810 Weight 87.26 kg Intake: Oral 880 237 240 Output: Void Amount 0839 [id number] Other: Meal Dinner Breakfast Percent of Meal Consumed 100% 100% Feeding Ability Independent Independent Urine Appearance Cloudy Cloudy Urine Color Bright Yellow Dark Yellow Urine Odor Normal Head Head exam: Present atraumatic and normal inspection Eye Eye exam: Present normal appearance ENT ENT exam: Present mucous membranes moist, normal exam and normal external ear exam Neck Neck exam: Present normal inspection Respiratory Respiratory exam: Present normal respiratory exam Cardiovascular Cardiovascular exam: Present normal rate and rhythm GI/Abdominal GI/Abdominal exam: Present normal bowel sounds Back Exam Back exam: Present normal inspection Neurological Exam Neurological exam: Present alert and oriented X3 Skin Skin exam: Present intact and warm OBJ DATA Labs CBC & Chem 7: 05/09/22 20:42 05/12/22 05:44 Meds: Medications Acetaminophen (Acetaminophen 325 Mg Tablet) 650 mg PO Q6HP PRN; Protocol PRN Reason: Per Pain Protocol/Fever > 101 Last Admin: 05/17/22 07:24 Dose: 650 mg Albuterol/Ipratropium (Ipratropium/Albuterol 3 Ml Ampul.Neb) 3 ml NEB Q4HP PRN PRN Reason: Shortness Of Breath Amlodipine Besylate (Amlodipine 5 Mg Tablet) 5 mg PO DAILY [facility] Last Admin: 05/18/22 09:13 Dose: 5 mg Aspirin (Aspirin 81 Mg Tab.Chew) 81 mg PO BID [facility] Last Admin: 05/18/22 09:15 Dose: 81 mg Clonazepam (Clonazepam 1 Mg Tablet) 1 mg PO TIDP PRN PRN Reason: Agitation Last Admin: 05/17/22 21:02 Dose: 1 mg Dextrose (Dextrose 50% 50 Ml Vial) 0 ml IV UD PRN PRN Reason: Per Sliding Scale Diagnostic Test (Pha) (Accu-Chek 1 Each Strip) 1 each FS ACHS [facility] Last Admin: 05/18/22 09:15 Dose: 1 each Docusate Sodium (Docusate Sodium 100 Mg Capsule) 100 mg PO BID [facility] Last Admin: 05/18/22 09:13 Dose: 100 mg Enoxaparin Sodium (Enoxaparin 40 Mg/0.4 Ml Syringe) 40 mg SQ DAILY [facility] Last Admin: 05/18/22 09:14 Dose: 40 mg Gabapentin (Gabapentin 300 Mg Capsule) 300 mg PO BID [facility] Last Admin: 05/18/22 09:13 Dose: 300 mg Glucose (Dextrose 31 Gm Oral.Susp) 15 gm PO PRN PRN PRN Reason: Hypoglycemia Hydralazine HCl (Hydralazine 20 Mg/Ml Vial) 0 mg IV Q2HP PRN PRN Reason: Hypertension Hydroxyzine HCl (Hydroxyzine 25 Mg Tablet) 50 mg PO TIDP PRN PRN Reason: anxiety Last Admin: 05/18/22 11:04 Dose: 50 mg Potassium Chloride 40 meq/ (Dextrose) 520 mls @ 130 mls/hr IV UD PRN PRN Reason: Potassium < 3 Magnesium Sulfate (Magnesium Sulfate) 2 gm in 50 mls @ 50 mls/hr IV UD PRN PRN Reason: Magnesium </= 1.6 Insulin Human Lispro (Insulin Lispro 1 Unit/0.01 Ml Unit) 0 unit SQ ACHS [facility]; Protocol Last Admin: 05/18/22 09:15 Dose: Not Given Labetalol HCl (Labetalol 5 Mg/Ml Ml) 0 mg IV Q2HP PRN PRN Reason: Hypertension Lamotrigine (Lamotrigine 100 Mg Tablet) 100 mg PO DAILY [facility] Last Admin: 05/18/22 09:13 Dose: 100 mg Levothyroxine Sodium (Levothyroxine Sodium 112 Mcg Tablet) [facility] Last Admin: 05/18/22 09:13 Dose: 112 mcg Levothyroxine Sodium (Levothyroxine 25 Mcg Tablet) 25 mcg PO QAMAC [facility] Last Admin: 05/18/22 09:20 Dose: 25 mcg Losartan Potassium (Losartan 50 Mg Tablet) 50 mg PO DAILY [facility] Last Admin: 05/18/22 09:13 Dose: 50 mg Nicotine (Nicotine 21 Mg Patch) 21 mg TOPICAL DAILY@1000 [facility] Last Admin: 05/18/22 09:15 Dose: 21 mg Olanzapine (Olanzapine 5 Mg Tablet) 5 mg PO HSP PRN PRN Reason: aggitation Last Admin: 05/17/22 15:06 Dose: 5 mg Ondansetron HCl (Ondansetron 4 Mg/2 Ml Vial) 4 mg IV Q4HP PRN PRN Reason: Nausea And Vomiting Last Admin: 05/10/22 08:10 Dose: 4 mg Fluvoxamine 50 Mg (Tablet) 1 dose PO [facility] Last Admin: 05/17/22 20:48 Dose: Not Given Linaclotide [Linzess (] 290 Mcg Capsule) 1 dose PO QDAY [facility] Last Admin: 05/18/22 09:20 Dose: Not Given Polyethylene Glycol (Polyethylene Glycol 3350 17 Gm Packet) 17 gm PO DAILYP PRN PRN Reason: Constipation Last Admin: 05/15/22 05:20 Dose: 17 gm Polyethylene Glycol (Polyethylene Glycol 3350 17 Gm Packet) 17 gm PO DAILYP PRN PRN Reason: Constipation Potassium Chloride (Potassium Chloride 20 Meq Tablet) 40 meq PO UD PRN PRN Reason: Potssium is 3-3.5 Last Admin: 05/10/22 21:42 Dose: 40 meq Potassium Chloride (Potassium Chloride 20 Meq Tablet) 40 meq PO UD PRN PRN Reason: Potassium < 3 Quetiapine Fumarate (Quetiapine 100 Mg Tablet) 400 mg PO 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 Psychogenic polydipsia: Inpatient med surg 1800cc/day fluid restriction Electrolytes already back to the baseline so there is no need to do daily labs Pending chcf placement 2. Hypothyroidism: Continue thyroid replacement therapy 3. T2DM: HgA1c Hold oral hypoglycemics SSI AC HS Accu Chek AC HS Hypoglycemia protocol Diabetic diet Gabapentin 4. Dementia: Pending SNF placement 5. Bipolar depression with anxiety: Seroquel Zyprexa PRN agitation/psychosis Clonazepam PRN anxiety 6. Essential HTN: Losartan Amlodipine GI ppx: not indicated DVT ppx: Lovenox Code status: DNR Prognosis: stable Disposition: inpatient med surg; Pending SNF Time Spent With Patient Time: Total time spent is greater than 50% in coordination of care (as documented) at patient's floor/unit and/or counseling patient: Total time spent with greater than 50% in coordination of care (as documented) at patient's floor/unit and/or counseling patient:: 35 - 50 minutes QUALITY VTE Deep Vein Thrombosis/Pulmonary Embolism Present on Admission: No
[2022-05-18] MEDS: hydrALAZINE 10 MG TABLET PO PRN (17:50)
[2022-05-18] MEDS: clonazePAM 1 MG TABLET PO PRN (19:09)
[2022-05-18] MEDS: Fluvoxamine 50 mg tablet PO SCH (19:50)
[2022-05-18] MEDS: QUEtiapine 100 MG TABLET PO SCH (20:46)
[2022-05-18] MEDS: OLANZapine 5 MG TABLET PO PRN (20:46)
[2022-05-19] MEDS: INSULIN LISPRO 1 UNIT/0.01 ML UNIT SQ SCH ×4 (07:44→19:56)
[2022-05-19] MEDS: LEVOTHYROXINE SODIUM 112 MCG TABLET PO SCH (08:41)
[2022-05-19] MEDS: amLODIPine 5 MG TABLET PO SCH (08:41)
[2022-05-19] MEDS: hydrOXYzine 25 MG TABLET PO PRN ×2 (08:41→17:22)
[2022-05-19] MEDS: ASPIRIN 81 MG TAB.CHEW PO SCH ×2 (08:41→20:13)
[2022-05-19] MEDS: LOSARTAN 50 MG TABLET PO SCH (08:41)
[2022-05-19] MEDS: LEVOTHYROXINE 25 MCG TABLET PO SCH (08:41)
[2022-05-19] MEDS: NICOTINE 21 MG PATCH TOPICAL SCH (08:41)
[2022-05-19] MEDS: ENOXAPARIN 40 MG/0.4 ML SYRINGE SQ SCH (08:42)
[2022-05-19] MEDS: DOCUSATE SODIUM 100 MG CAPSULE PO SCH ×2 (08:42→20:13)
[2022-05-19] MEDS: lamoTRIgine 100 MG TABLET PO SCH (08:42)
[2022-05-19] MEDS: GABAPENTIN 300 MG CAPSULE PO SCH ×2 (08:42→20:13)
--- NOTE | 2022-05-19 11:16 | Internal Med Progress Note ---
SUBJECTIVE Subjective Patient information: Note initiated : 05/19/22 at 11:14 am Service Date, if different from initiated Date: [] Patient: Cynthia Kirby 72 y/o F admitted on 05/09/22 for Dizzy. Chief Complaint: [] Interval history: Presents ED with dizziness and lightheadedness. Patient felt like she was going to pass out. Denies any headache fever chills nausea or vomiting. Denies any chest pain or shortness of breath. She was found to have sodium of 120, she is chronically low but this is lower than her usual. 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 Patient has recent guardianship and that person has been trying to place the patient in a alf facility it sounds like she will go to [place] next week. 05/10 Patient had an episode of nausea vomiting after eating breakfast this morning. She says she typically does not eat that much. She has some occasional dizziness lightheadedness. Sodium elevated today faster than expected. We will provide some DDAVP and some hypotonic's fluid. 05/11 Patient feeling little better today. Denies dizziness or lightheadedness. Fluid restrict monitoring sodium closely. Phosphorus low and will replete. Metabolic acidosis. 05/12 Slept better. Feeling little better. Sodium improved as well as acid-base balance. Continue 1800 cc fluid restrict. Case management placement likely tomorrow. 05/13 No overnight event or new complaints. Continue fluid restrict. Awaiting placement. 05/14: No major overnight event. Both sodium and potassium level normalized. We will continue 1800 cc/day fluid restrictions, while awaiting residential placement. 05/15: No major overnight events. No checking daily labs anymore. We will continue 1800 cc/day fluid restrictions, while awaiting residential placement. 05/16: No major overnight events. No checking daily labs anymore. We will continue 1800 cc/day fluid restrictions, while awaiting residential placement. 05/17: No major overnight events. No checking daily labs anymore. We will continue 1800 cc/day fluid restrictions, while awaiting residential placement. 05/18: No major overnight events. No checking daily labs anymore. We will continue 1800 cc/day fluid restrictions, while awaiting residential placement. 05/19: No major overnight events. No checking daily labs anymore. We will continue 1800 cc/day fluid restrictions, while awaiting residential placement. Constitutional Vitals: Vital Signs Temp Pulse Resp BP Pulse Ox O2 Del Method O2 Flow Rate 36.3 C 73 18 141/79 95 0 05/19/22 07:39 05/19/22 07:39 05/19/22 07:39 05/19/22 07:39 05/19/22 07:39 05/19/22 07:39 05/13/22 12:12 Period Temp Pulse Resp BP Sys/Norris Pulse Ox O2 Del Method O2 Flow Rate Last 24 Hr 36.3 C-36.6 C 70-86 16-18 138-166/76-93 94-99 Room Air-Room Air Intake and Output 05/18/22 05/19/22 05/19/22 21:59 05:59 13:59 Intake Total 937 0 120 Output Total 1275 800 250 Balance -338 -800 -130 Weight 84.964 kg Intake & Output: Intake & Output 05/18/22 05/19/22 05/19/22 21:59 05:59 13:59 Intake Total 937 0 120 Output Total 1275 800 250 Balance -338 -800 -130 Weight 84.964 kg Intake: Oral 937 0 120 Output: Void Amount 1275 800 250 Other: Meal Dinner Breakfast Percent of Meal Consumed 100% 100% Feeding Ability Independent Urine Appearance Cloudy Sediment Urine Color Bright Yellow General appearance: cooperative, no acute distress and obese Head Head exam: Present atraumatic and normal inspection Eye Eye exam: Present normal appearance ENT ENT exam: Present mucous membranes moist, normal exam and normal external ear exam Neck Neck exam: Present normal inspection Respiratory Respiratory exam: Present normal respiratory exam Cardiovascular Cardiovascular exam: Present normal rate and rhythm GI/Abdominal GI/Abdominal exam: Present normal bowel sounds Back Exam Back exam: Present normal inspection Neurological Exam Neurological exam: Present alert, altered and oriented X3 Skin Skin exam: Present intact and warm OBJ DATA Labs CBC & Chem 7: 05/09/22 20:42 05/12/22 05:44 Meds: Medications Acetaminophen (Acetaminophen 325 Mg Tablet) 650 mg PO Q6HP PRN; Protocol PRN Reason: Per Pain Protocol/Fever > 101 Last Admin: 05/17/22 07:24 Dose: 650 mg Albuterol/Ipratropium (Ipratropium/Albuterol 3 Ml Ampul.Neb) 3 ml NEB Q4HP PRN PRN Reason: Shortness Of Breath Amlodipine Besylate (Amlodipine 5 Mg Tablet) 5 mg PO DAILY [facility] Last Admin: 05/19/22 08:41 Dose: 5 mg Aspirin (Aspirin 81 Mg Tab.Chew) 81 mg PO BID [facility] Last Admin: 05/19/22 08:41 Dose: 81 mg Clonazepam (Clonazepam 1 Mg Tablet) 1 mg PO TIDP PRN PRN Reason: Agitation Last Admin: 05/18/22 19:09 Dose: 1 mg Dextrose (Dextrose 50% 50 Ml Vial) 0 ml IV UD PRN PRN Reason: Per Sliding Scale Diagnostic Test (Pha) (Accu-Chek 1 Each Strip) 1 each FS [facility] Last Admin: 05/19/22 07:44 Dose: Not Given Docusate Sodium (Docusate Sodium 100 Mg Capsule) 100 mg PO BID [facility] Last Admin: 05/19/22 08:42 Dose: 100 mg Enoxaparin Sodium (Enoxaparin 40 Mg/0.4 Ml Syringe) 40 mg SQ DAILY [facility] Last Admin: 05/19/22 08:42 Dose: 40 mg Gabapentin (Gabapentin 300 Mg Capsule) 300 mg PO BID [facility] Last Admin: 05/19/22 08:42 Dose: 300 mg Glucose (Dextrose 31 Gm Oral.Susp) 15 gm PO PRN PRN PRN Reason: Hypoglycemia Hydralazine HCl (Hydralazine 20 Mg/Ml Vial) 0 mg IV Q2HP PRN PRN Reason: Hypertension Hydralazine HCl (Hydralazine 10 Mg Tablet) 10 mg PO Q6HP PRN PRN Reason: SBP > 150 Last Admin: 05/18/22 17:50 Dose: 10 mg Hydroxyzine HCl (Hydroxyzine 25 Mg Tablet) 50 mg PO TIDP PRN PRN Reason: anxiety Last Admin: 05/19/22 08:41 Dose: 50 mg Potassium Chloride 40 meq/ (Dextrose) 520 mls @ 130 mls/hr IV UD PRN PRN Reason: Potassium < 3 Magnesium Sulfate (Magnesium Sulfate) 2 gm in 50 mls @ 50 mls/hr IV UD PRN PRN Reason: Magnesium </= 1.6 Insulin Human Lispro (Insulin Lispro 1 Unit/0.01 Ml Unit) 0 unit SQ ACHS [facility]; Protocol Last Admin: 05/19/22 07:44 Dose: Not Given Labetalol HCl (Labetalol 5 Mg/Ml Ml) 0 mg IV Q2HP PRN PRN Reason: Hypertension Lamotrigine (Lamotrigine 100 Mg Tablet) 100 mg PO DAILY [facility] Last Admin: 05/19/22 08:42 Dose: 100 mg Levothyroxine Sodium (Levothyroxine Sodium 112 Mcg Tablet) [facility] Last Admin: 05/19/22 08:41 Dose: 112 mcg Levothyroxine Sodium (Levothyroxine 25 Mcg Tablet) [facility] Last Admin: 05/19/22 08:41 Dose: 25 mcg Losartan Potassium (Losartan 50 Mg Tablet) 50 mg PO DAILY [facility] Last Admin: 05/19/22 08:41 Dose: 50 mg Nicotine (Nicotine 21 Mg Patch) 21 mg TOPICAL DAILY@1000 [facility] Last Admin: 05/19/22 08:41 Dose: 21 mg Olanzapine (Olanzapine 5 Mg Tablet) 5 mg PO HSP PRN PRN Reason: aggitation Last Admin: 05/18/22 20:46 Dose: 5 mg Ondansetron HCl (Ondansetron 4 Mg/2 Ml Vial) 4 mg IV Q4HP PRN PRN Reason: Nausea And Vomiting Last Admin: 05/10/22 08:10 Dose: 4 mg Fluvoxamine 50 Mg (Tablet) 1 dose PO [facility] Last Admin: 05/18/22 19:50 Dose: Not Given Linaclotide [Linzess (] 290 Mcg Capsule) 1 dose PO QDAY [facility] Last Admin: 05/19/22 08:42 Dose: Not Given Polyethylene Glycol (Polyethylene Glycol 3350 17 Gm Packet) 17 gm PO DAILYP PRN PRN Reason: Constipation Last Admin: 05/15/22 05:20 Dose: 17 gm Polyethylene Glycol (Polyethylene Glycol 3350 17 Gm Packet) 17 gm PO DAILYP PRN PRN Reason: Constipation Potassium Chloride (Potassium Chloride 20 Meq Tablet) 40 meq PO UD PRN PRN Reason: Potssium is 3-3.5 Last Admin: 05/10/22 21:42 Dose: 40 meq Potassium Chloride (Potassium Chloride 20 Meq Tablet) 40 meq PO UD PRN PRN Reason: Potassium < 3 Quetiapine Fumarate (Quetiapine 100 Mg Tablet) 400 mg PO [facility] Last Admin: 05/18/22 20:46 Dose: 400 mg Senna (Sennosides 1 Tablet) 2 tab PO DAILYP PRN PRN Reason: Constipation Last Admin: 05/15/22 21:09 Dose: 2 tab A/P Assessment and plan (1) Psychogenic polydipsia: Status: Chronic (2) Hypertension, essential: Status: Chronic (3) Hypothyroidism (acquired): Status: Chronic (4) Diabetes mellitus type 2, controlled: Status: Chronic Qualifiers: Diabetes mellitus manager intermediate insulin use: without detention use Diabetes mellitus complication status: with unspecified complications Qualified Code(s): E11.8 - Type 2 diabetes mellitus with unspecified complications (5) Bipolar I disorder with depression: Status: Acute (6) Dementia: Status: Acute Narrative A/P Narrative: Assessment and Plans: 1. Psychogenic polydipsia: Inpatient med surg 1800cc/day fluid restriction Electrolytes already back to the baseline so there is no need to do daily labs Pending residential placement 2. Hypothyroidism: Continue thyroid replacement therapy 3. T2DM: HgA1c Hold oral hypoglycemics SSI AC HS Accu Chek AC HS Hypoglycemia protocol Diabetic diet Gabapentin 4. Dementia: Pending SNF placement 5. Bipolar depression with anxiety: Seroquel Zyprexa PRN agitation/psychosis Clonazepam PRN anxiety 6. Essential HTN: Losartan Amlodipine GI ppx: not indicated DVT ppx: Lovenox Code status: DNR Prognosis: stable Disposition: inpatient med surg; Pending SNF Time Spent With Patient Time: Total time spent is greater than 50% in coordination of care (as documented) at patient's floor/unit and/or counseling patient: Total time spent with greater than 50% in coordination of care (as documented) at patient's floor/unit and/or counseling patient:: 35 - 50 minutes QUALITY VTE Deep Vein Thrombosis/Pulmonary Embolism Present on Admission: No
[2022-05-19] MEDS: clonazePAM 1 MG TABLET PO PRN ×2 (11:38→20:12)
[2022-05-19] MEDS: Fluvoxamine 50 mg tablet PO SCH (19:57)
[2022-05-19] MEDS: QUEtiapine 100 MG TABLET PO SCH (20:12)
[2022-05-19] MEDS: OLANZapine 5 MG TABLET PO PRN (20:13)
[2022-05-20] MEDS: POLYETHYLENE GLYCOL 3350 17 GM PACKET PO PRN (07:37)
[2022-05-20] MEDS: ENOXAPARIN 40 MG/0.4 ML SYRINGE SQ SCH (07:37)
[2022-05-20] MEDS: hydrOXYzine 25 MG TABLET PO PRN ×2 (07:38→20:03)
[2022-05-20] MEDS: GABAPENTIN 300 MG CAPSULE PO SCH ×2 (07:38→20:02)
[2022-05-20] MEDS: LEVOTHYROXINE SODIUM 112 MCG TABLET PO SCH (07:38)
[2022-05-20] MEDS: DOCUSATE SODIUM 100 MG CAPSULE PO SCH ×2 (07:38→20:02)
[2022-05-20] MEDS: lamoTRIgine 100 MG TABLET PO SCH (07:38)
[2022-05-20] MEDS: LOSARTAN 50 MG TABLET PO SCH (07:38)
[2022-05-20] MEDS: LEVOTHYROXINE 25 MCG TABLET PO SCH (07:38)
[2022-05-20] MEDS: amLODIPine 5 MG TABLET PO SCH (07:38)
[2022-05-20] MEDS: INSULIN LISPRO 1 UNIT/0.01 ML UNIT SQ SCH ×4 (07:39→20:07)
[2022-05-20] MEDS: ASPIRIN 81 MG TAB.CHEW PO SCH ×2 (07:40→20:03)
--- NOTE | 2022-05-20 11:35 | Internal Med Progress Note ---
SUBJECTIVE Subjective Patient information: Note initiated : 05/20/22 at 11:34 am Service Date, if different from initiated Date: [] Patient: Cynthia Kirby 72 y/o F admitted on 05/09/22 for Dizzy. Chief Complaint: [] Interval history: Presents ED with dizziness and lightheadedness. Patient felt like she was going to pass out. Denies any headache fever chills nausea or vomiting. Denies any chest pain or shortness of breath. She was found to have sodium of 120, she is chronically low but this is lower than her usual. 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 Patient has recent guardianship and that person has been trying to place the patient in a fci facility it sounds like she will go to [place] next week. 05/10 Patient had an episode of nausea vomiting after eating breakfast this morning. She says she typically does not eat that much. She has some occasional dizziness lightheadedness. Sodium elevated today faster than expected. We will provide some DDAVP and some hypotonic's fluid. 05/11 Patient feeling little better today. Denies dizziness or lightheadedness. Fluid restrict monitoring sodium closely. Phosphorus low and will replete. Metabolic acidosis. 05/12 Slept better. Feeling little better. Sodium improved as well as acid-base balance. Continue 1800 cc fluid restrict. Case management placement likely tomorrow. 05/13 No overnight event or new complaints. Continue fluid restrict. Awaiting placement. 05/14: No major overnight event. Both sodium and potassium level normalized. We will continue 1800 cc/day fluid restrictions, while awaiting jail placement. 05/15: No major overnight events. No checking daily labs anymore. We will continue 1800 cc/day fluid restrictions, while awaiting jail placement. 05/16: No major overnight events. No checking daily labs anymore. We will continue 1800 cc/day fluid restrictions, while awaiting jail placement. 05/17: No major overnight events. No checking daily labs anymore. We will continue 1800 cc/day fluid restrictions, while awaiting jail placement. 05/18: No major overnight events. No checking daily labs anymore. We will continue 1800 cc/day fluid restrictions, while awaiting jail placement. 05/19: No major overnight events. No checking daily labs anymore. We will continue 1800 cc/day fluid restrictions, while awaiting jail placement. 05/20: No major overnight events. No checking daily labs anymore. We will continue 1800 cc/day fluid restrictions, while awaiting jail placement. Constitutional Vitals: Vital Signs Temp Pulse Resp BP Pulse Ox O2 Del Method O2 Flow Rate 36.9 C 73 20 157/87 95 0 05/20/22 08:00 05/20/22 08:00 05/20/22 08:00 05/20/22 08:00 05/20/22 08:00 05/20/22 08:00 05/13/22 12:12 Period Temp Pulse Resp BP Sys/Norris Pulse Ox O2 Del Method O2 Flow Rate Last 24 Hr 36.1 C-36.9 C 72-84 16-20 86-157/56-88 95-98 Room Air-Room Air Intake and Output 05/19/22 05/20/22 05/20/22 21:59 05:59 13:59 Intake Total 780 600 477 Output Total 500 1000 Balance 280 600 -523 Weight 84.992 kg Intake & Output: Intake & Output 05/19/22 05/20/22 05/20/22 21:59 05:59 13:59 Intake Total 780 600 477 Output Total 500 1000 Balance 280 600 -523 Weight 84.992 kg Intake: Oral 780 600 477 Output: Void Amount 500 1000 Other: Meal Breakfast Percent of Meal Consumed 100% Feeding Ability Assist with Tray Set Up Urine Color Straw Urine Odor Strong Head Head exam: Present atraumatic and normal inspection Eye Eye exam: Present normal appearance ENT ENT exam: Present mucous membranes moist, normal exam and normal external ear exam Neck Neck exam: Present normal inspection Respiratory Respiratory exam: Present normal respiratory exam Cardiovascular Cardiovascular exam: Present normal rate and rhythm GI/Abdominal GI/Abdominal exam: Present normal bowel sounds Back Exam Back exam: Present normal inspection Neurological Exam Neurological exam: Present alert and oriented X3 Skin Skin exam: Present intact and warm OBJ DATA Labs CBC & Chem 7: 05/09/22 20:42 05/12/22 05:44 Meds: Medications Acetaminophen (Acetaminophen 325 Mg Tablet) 650 mg PO Q6HP PRN; Protocol PRN Reason: Per Pain Protocol/Fever > 101 Last Admin: 05/17/22 07:24 Dose: 650 mg Albuterol/Ipratropium (Ipratropium/Albuterol 3 Ml Ampul.Neb) 3 ml NEB Q4HP PRN PRN Reason: Shortness Of Breath Amlodipine Besylate (Amlodipine 5 Mg Tablet) 5 mg PO DAILY [facility] Last Admin: 05/20/22 07:38 Dose: 5 mg Aspirin (Aspirin 81 Mg Tab.Chew) 81 mg PO BID [facility] Last Admin: 05/20/22 07:40 Dose: 81 mg Clonazepam (Clonazepam 1 Mg Tablet) 1 mg PO TIDP PRN PRN Reason: Agitation Last Admin: 05/19/22 20:12 Dose: 1 mg Dextrose (Dextrose 50% 50 Ml Vial) 0 ml IV UD PRN PRN Reason: Per Sliding Scale Diagnostic Test (Pha) (Accu-Chek 1 Each Strip) 1 each FS ACHS [facility] Last Admin: 05/20/22 07:39 Dose: 1 each Docusate Sodium (Docusate Sodium 100 Mg Capsule) 100 mg PO BID [facility] Last Admin: 05/20/22 07:38 Dose: 100 mg Enoxaparin Sodium (Enoxaparin 40 Mg/0.4 Ml Syringe) 40 mg SQ DAILY [facility] Last Admin: 05/20/22 07:37 Dose: 40 mg Gabapentin (Gabapentin 300 Mg Capsule) 300 mg PO BID [facility] Last Admin: 05/20/22 07:38 Dose: 300 mg Glucose (Dextrose 31 Gm Oral.Susp) 15 gm PO PRN PRN PRN Reason: Hypoglycemia Hydralazine HCl (Hydralazine 20 Mg/Ml Vial) 0 mg IV Q2HP PRN PRN Reason: Hypertension Hydralazine HCl (Hydralazine 10 Mg Tablet) 10 mg PO Q6HP PRN PRN Reason: SBP > 150 Last Admin: 05/18/22 17:50 Dose: 10 mg Hydroxyzine HCl (Hydroxyzine 25 Mg Tablet) 50 mg PO TIDP PRN PRN Reason: anxiety Last Admin: 05/20/22 07:38 Dose: 50 mg Potassium Chloride 40 meq/ (Dextrose) 520 mls @ 130 mls/hr IV UD PRN PRN Reason: Potassium < 3 Magnesium Sulfate (Magnesium Sulfate) 2 gm in 50 mls @ 50 mls/hr IV UD PRN PRN Reason: Magnesium </= 1.6 Insulin Human Lispro (Insulin Lispro 1 Unit/0.01 Ml Unit) 0 unit SQ ACHS [facility]; Protocol Last Admin: 05/20/22 07:39 Dose: Not Given Labetalol HCl (Labetalol 5 Mg/Ml Ml) 0 mg IV Q2HP PRN PRN Reason: Hypertension Lamotrigine (Lamotrigine 100 Mg Tablet) 100 mg PO DAILY [facility] Last Admin: 05/20/22 07:38 Dose: 100 mg Levothyroxine Sodium (Levothyroxine Sodium 112 Mcg Tablet) 112 mcg PO [facility] Last Admin: 05/20/22 07:38 Dose: 112 mcg Levothyroxine Sodium (Levothyroxine 25 Mcg Tablet) 25 mcg PO [facility] Last Admin: 05/20/22 07:38 Dose: 25 mcg Losartan Potassium (Losartan 50 Mg Tablet) 50 mg PO DAILY [facility] Last Admin: 05/20/22 07:38 Dose: 50 mg Nicotine (Nicotine 21 Mg Patch) 21 mg TOPICAL DAILY@1000 [facility] Last Admin: 05/19/22 08:41 Dose: 21 mg Olanzapine (Olanzapine 5 Mg Tablet) 5 mg PO HSP PRN PRN Reason: aggitation Last Admin: 05/19/22 20:13 Dose: 5 mg Ondansetron HCl (Ondansetron 4 Mg/2 Ml Vial) 4 mg IV Q4HP PRN PRN Reason: Nausea And Vomiting Last Admin: 05/10/22 08:10 Dose: 4 mg Fluvoxamine 50 Mg (Tablet) 1 dose PO [facility] Last Admin: 05/19/22 19:57 Dose: Not Given Linaclotide [Linzess (] 290 Mcg Capsule) 1 dose PO QDAY [facility] Last Admin: 05/20/22 07:39 Dose: Not Given Polyethylene Glycol (Polyethylene Glycol 3350 17 Gm Packet) 17 gm PO DAILYP PRN PRN Reason: Constipation Last Admin: 05/20/22 07:37 Dose: 17 gm Polyethylene Glycol (Polyethylene Glycol 3350 17 Gm Packet) 17 gm PO DAILYP PRN PRN Reason: Constipation Potassium Chloride (Potassium Chloride 20 Meq Tablet) 40 meq PO UD PRN PRN Reason: Potssium is 3-3.5 Last Admin: 05/10/22 21:42 Dose: 40 meq Potassium Chloride (Potassium Chloride 20 Meq Tablet) 40 meq PO UD PRN PRN Reason: Potassium < 3 Quetiapine Fumarate (Quetiapine 100 Mg Tablet) 400 mg PO [facility] Last Admin: 05/19/22 20:12 Dose: 400 mg Senna (Sennosides 1 Tablet) 2 tab PO DAILYP PRN PRN Reason: Constipation Last Admin: 05/15/22 21:09 Dose: 2 tab A/P Assessment and plan (1) Psychogenic polydipsia: Status: Chronic (2) Hypertension, essential: Status: Chronic (3) Hypothyroidism (acquired): Status: Chronic (4) Diabetes mellitus type 2, controlled: Status: Chronic Qualifiers: Diabetes mellitus half-way insulin use: without half-way use Diabetes mellitus complication status: with unspecified complications Qualified Code(s): E11.8 - Type 2 diabetes mellitus with unspecified complications (5) Bipolar I disorder with depression: Status: Acute (6) Dementia: Status: Acute Narrative A/P Narrative: Assessment and Plans: 1. Psychogenic polydipsia: Inpatient med surg 1800cc/day fluid restriction Electrolytes already back to the baseline so there is no need to do daily labs Pending jail placement 2. Hypothyroidism: Continue thyroid replacement therapy 3. T2DM: HgA1c Hold oral hypoglycemics SSI AC HS Accu Chek AC HS Hypoglycemia protocol Diabetic diet Gabapentin 4. Dementia: Pending SNF placement 5. Bipolar depression with anxiety: Seroquel Zyprexa PRN agitation/psychosis Clonazepam PRN anxiety 6. Essential HTN: Losartan Amlodipine GI ppx: not indicated DVT ppx: Lovenox Code status: DNR Prognosis: stable Disposition: inpatient med surg; Pending SNF Time Spent With Patient Time: Total time spent is greater than 50% in coordination of care (as documented) at patient's floor/unit and/or counseling patient: Total time spent with greater than 50% in coordination of care (as documented) at patient's floor/unit and/or counseling patient:: 25 - 35 minutes QUALITY VTE Deep Vein Thrombosis/Pulmonary Embolism Present on Admission: No
[2022-05-20] MEDS: NICOTINE 21 MG PATCH TOPICAL SCH (14:17)
[2022-05-20] MEDS: clonazePAM 1 MG TABLET PO PRN ×2 (16:47→20:03)
[2022-05-20] MEDS: hydrALAZINE 10 MG TABLET PO PRN (16:47)
[2022-05-20] MEDS: OLANZapine 5 MG TABLET PO PRN (20:02)
[2022-05-20] MEDS: QUEtiapine 100 MG TABLET PO SCH (20:03)
[2022-05-20] MEDS: Fluvoxamine 50 mg tablet PO SCH (20:08)
[2022-05-21] MEDS: INSULIN LISPRO 1 UNIT/0.01 ML UNIT SQ SCH ×4 (07:43→20:12)
[2022-05-21] MEDS: LEVOTHYROXINE SODIUM 112 MCG TABLET PO SCH (08:07)
[2022-05-21] MEDS: ASPIRIN 81 MG TAB.CHEW PO SCH ×2 (08:07→20:11)
[2022-05-21] MEDS: DOCUSATE SODIUM 100 MG CAPSULE PO SCH ×2 (08:08→20:11)
[2022-05-21] MEDS: LOSARTAN 50 MG TABLET PO SCH (08:08)
[2022-05-21] MEDS: LEVOTHYROXINE 25 MCG TABLET PO SCH (08:08)
[2022-05-21] MEDS: GABAPENTIN 300 MG CAPSULE PO SCH ×2 (08:08→20:11)
[2022-05-21] MEDS: amLODIPine 5 MG TABLET PO SCH (08:08)
[2022-05-21] MEDS: ENOXAPARIN 40 MG/0.4 ML SYRINGE SQ SCH (08:08)
[2022-05-21] MEDS: lamoTRIgine 100 MG TABLET PO SCH (08:08)
[2022-05-21] MEDS: NICOTINE 21 MG PATCH TOPICAL SCH (11:58)
--- NOTE | 2022-05-21 12:25 | Internal Med Progress Note ---
SUBJECTIVE Subjective Patient information: Note initiated : 05/21/22 at 12:24 pm Service Date, if different from initiated Date: [] Patient: Cynthia Kirby 72 y/o F admitted on 05/09/22 for Dizzy. Chief Complaint: [] Interval history: Presents ED with dizziness and lightheadedness. Patient felt like she was going to pass out. Denies any headache fever chills nausea or vomiting. Denies any chest pain or shortness of breath. She was found to have sodium of 120, she is chronically low but this is lower than her usual. 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 Patient has recent guardianship and that person has been trying to place the patient in a assisted facility it sounds like she will go to [place] next week. 05/10 Patient had an episode of nausea vomiting after eating breakfast this morning. She says she typically does not eat that much. She has some occasional dizziness lightheadedness. Sodium elevated today faster than expected. We will provide some DDAVP and some hypotonic's fluid. 05/11 Patient feeling little better today. Denies dizziness or lightheadedness. Fluid restrict monitoring sodium closely. Phosphorus low and will replete. Metabolic acidosis. 05/12 Slept better. Feeling little better. Sodium improved as well as acid-base balance. Continue 1800 cc fluid restrict. Case management placement likely tomorrow. 05/13 No overnight event or new complaints. Continue fluid restrict. Awaiting placement. 05/14: No major overnight event. Both sodium and potassium level normalized. We will continue 1800 cc/day fluid restrictions, while awaiting intermediate placement. 05/15: No major overnight events. No checking daily labs anymore. We will continue 1800 cc/day fluid restrictions, while awaiting intermediate placement. 05/16: No major overnight events. No checking daily labs anymore. We will continue 1800 cc/day fluid restrictions, while awaiting intermediate placement. 05/17: No major overnight events. No checking daily labs anymore. We will continue 1800 cc/day fluid restrictions, while awaiting intermediate placement. 05/18: No major overnight events. No checking daily labs anymore. We will continue 1800 cc/day fluid restrictions, while awaiting intermediate placement. 05/19: No major overnight events. No checking daily labs anymore. We will continue 1800 cc/day fluid restrictions, while awaiting intermediate placement. 05/20: No major overnight events. No checking daily labs anymore. We will continue 1800 cc/day fluid restrictions, while awaiting intermediate placement. 05/21: I have taken over the care of this patient and she is medically status quo. We will continue to look for placement. Constitutional Vitals: Vital Signs Temp Pulse Resp BP Pulse Ox O2 Del Method O2 Flow Rate 98.1 F 84 18 115/76 96 0 05/21/22 12:00 05/21/22 12:00 05/21/22 12:00 05/21/22 12:00 05/21/22 12:00 05/21/22 12:00 05/13/22 12:12 Period Temp Pulse Resp BP Sys/Norris Pulse Ox O2 Del Method O2 Flow Rate Last 24 Hr 97.0 F-98.1 F 67-84 16-24 115-168/75-89 96-98 Room Air-Room Air Intake and Output 05/20/22 05/21/22 05/21/22 21:59 05:59 13:59 Intake Total 1050 0 Output Total 750 275 Balance 300 -275 Weight 84.459 kg Intake & Output: Intake & Output 05/20/22 05/21/22 05/21/22 21:59 05:59 13:59 Intake Total 1050 0 Output Total 750 275 Balance 300 -275 Weight 84.459 kg Intake: Oral 1050 0 Output: Void Amount 750 275 Other: Meal Dinner Percent of Meal Consumed 100% Feeding Ability Assist with Tray Set Up Urine Appearance Clear Urine Color Bright Yellow Urine Odor Normal # Voids 3 Head Head exam: Present atraumatic and normal inspection Eye Eye exam: Present normal appearance ENT ENT exam: Present mucous membranes moist, normal exam and normal external ear exam Neck Neck exam: Present normal inspection Respiratory Respiratory exam: Present normal respiratory exam Cardiovascular Cardiovascular exam: Present normal rate and rhythm GI/Abdominal GI/Abdominal exam: Present normal bowel sounds Back Exam Back exam: Present normal inspection Neurological Exam Neurological exam: Present alert and oriented X3 Skin Skin exam: Present intact and warm OBJ DATA Labs CBC & Chem 7: 05/09/22 20:42 05/12/22 05:44 Meds: Medications Acetaminophen (Acetaminophen 325 Mg Tablet) 650 mg PO Q6HP PRN; Protocol PRN Reason: Per Pain Protocol/Fever > 101 Last Admin: 05/17/22 07:24 Dose: 650 mg Albuterol/Ipratropium (Ipratropium/Albuterol 3 Ml Ampul.Neb) 3 ml NEB Q4HP PRN PRN Reason: Shortness Of Breath Amlodipine Besylate (Amlodipine 5 Mg Tablet) 5 mg PO DAILY [facility] Last Admin: 05/21/22 08:08 Dose: 5 mg Aspirin (Aspirin 81 Mg Tab.Chew) 81 mg PO BID [facility] Last Admin: 05/21/22 08:07 Dose: 81 mg Clonazepam (Clonazepam 1 Mg Tablet) 1 mg PO TIDP PRN PRN Reason: Agitation Last Admin: 05/20/22 20:03 Dose: 1 mg Dextrose (Dextrose 50% 50 Ml Vial) 0 ml IV UD PRN PRN Reason: Per Sliding Scale Diagnostic Test (Pha) (Accu-Chek 1 Each Strip) 1 each FS ACHS [facility] Last Admin: 05/21/22 11:52 Dose: 1 each Docusate Sodium (Docusate Sodium 100 Mg Capsule) 100 mg PO BID [facility] Last Admin: 05/21/22 08:08 Dose: 100 mg Enoxaparin Sodium (Enoxaparin 40 Mg/0.4 Ml Syringe) 40 mg SQ DAILY [facility] Last Admin: 05/21/22 08:08 Dose: 40 mg Gabapentin (Gabapentin 300 Mg Capsule) 300 mg PO BID [facility] Last Admin: 05/21/22 08:08 Dose: 300 mg Glucose (Dextrose 31 Gm Oral.Susp) 15 gm PO PRN PRN PRN Reason: Hypoglycemia Hydralazine HCl (Hydralazine 20 Mg/Ml Vial) 0 mg IV Q2HP PRN PRN Reason: Hypertension Hydralazine HCl (Hydralazine 10 Mg Tablet) 10 mg PO Q6HP PRN PRN Reason: SBP > 150 Last Admin: 05/20/22 16:47 Dose: 10 mg Hydroxyzine HCl (Hydroxyzine 25 Mg Tablet) 50 mg PO TIDP PRN PRN Reason: anxiety Last Admin: 05/20/22 20:03 Dose: 50 mg Potassium Chloride 40 meq/ (Dextrose) 520 mls @ 130 mls/hr IV UD PRN PRN Reason: Potassium < 3 Magnesium Sulfate (Magnesium Sulfate) 2 gm in 50 mls @ 50 mls/hr IV UD PRN PRN Reason: Magnesium </= 1.6 Insulin Human Lispro (Insulin Lispro 1 Unit/0.01 Ml Unit) 0 unit SQ [facility]; Protocol Last Admin: 05/21/22 11:58 Dose: 2 units Labetalol HCl (Labetalol 5 Mg/Ml Ml) 0 mg IV Q2HP PRN PRN Reason: Hypertension Lamotrigine (Lamotrigine 100 Mg Tablet) 100 mg PO DAILY [facility] Last Admin: 05/21/22 08:08 Dose: 100 mg Levothyroxine Sodium ([facility]othyroxine S[facility] 112 Mcg Tablet) [facility] Last Admin: 05/21/22 08:07 Dose: 112 mcg Levothyroxine Sodium (Levothyroxine 25 Mcg Tablet) 25 mcg PO QAMAC [facility] Last Admin: 05/21/22 08:08 Dose: 25 mcg Losartan Potassium (Losartan 50 Mg Tablet) 50 mg PO DAILY [facility] Last Admin: 05/21/22 08:08 Dose: 50 mg Nicotine (Nicotine 21 Mg Patch) 21 mg TOPICAL DAILY@1000 [facility] Last Admin: 05/21/22 11:58 Dose: 21 mg Olanzapine (Olanzapine 5 Mg Tablet) 5 mg PO HSP PRN PRN Reason: aggitation Last Admin: 05/20/22 20:02 Dose: 5 mg Ondansetron HCl (Ondansetron 4 Mg/2 Ml Vial) 4 mg IV Q4HP PRN PRN Reason: Nausea And Vomiting Last Admin: 05/10/22 08:10 Dose: 4 mg Fluvoxamine 50 Mg (Tablet) 1 dose PO HS [facility] Last Admin: 05/20/22 20:08 Dose: Not Given Linaclotide [Linzess (] 290 Mcg Capsule) 1 dose PO QDAY [facility] Last Admin: 05/21/22 08:09 Dose: Not Given Polyethylene Glycol (Polyethylene Glycol 3350 17 Gm Packet) 17 gm PO DAILYP PRN PRN Reason: Constipation Last Admin: 05/20/22 07:37 Dose: 17 gm Polyethylene Glycol (Polyethylene Glycol 3350 17 Gm Packet) 17 gm PO DAILYP PRN PRN Reason: Constipation Potassium Chloride (Potassium Chloride 20 Meq Tablet) 40 meq PO UD PRN PRN Reason: Potssium is 3-3.5 Last Admin: 05/10/22 21:42 Dose: 40 meq Potassium Chloride (Potassium Chloride 20 Meq Tablet) 40 meq PO UD PRN PRN Reason: Potassium < 3 Quetiapine Fumarate (Quetiapine 100 Mg Tablet) 400 mg PO HS [facility] Last Admin: 05/20/22 20:03 Dose: 400 mg Senna (Sennosides 1 Tablet) 2 tab PO DAILYP PRN PRN Reason: Constipation Last Admin: 05/15/22 21:09 Dose: 2 tab A/P Assessment and plan (1) Psychogenic polydipsia: Status: Chronic (2) Hypertension, essential: Status: Chronic (3) Hypothyroidism (acquired): Status: Chronic (4) Diabetes mellitus type 2, controlled: Status: Chronic Qualifiers: Diabetes mellitus care home insulin use: without care home use Diabetes mellitus complication status: with unspecified complications Qualified Code(s): E11.8 - Type 2 diabetes mellitus with unspecified complications (5) Bipolar I disorder with depression: Status: Acute (6) Dementia: Status: Acute Narrative A/P Narrative: Assessment and Plans: 1. Psychogenic polydipsia: Inpatient med surg 1800cc/day fluid restriction Electrolytes already back to the baseline so there is no need to do daily labs Pending intermediate placement 2. Hypothyroidism: Continue thyroid replacement therapy 3. T2DM: HgA1c Hold oral hypoglycemics SSI AC HS Accu Chek AC HS Hypoglycemia protocol Diabetic diet Gabapentin 4. Dementia: Pending SNF placement 5. Bipolar depression with anxiety: Seroquel Zyprexa PRN agitation/psychosis Clonazepam PRN anxiety 6. Essential HTN: Losartan Amlodipine GI ppx: not indicated DVT ppx: Lovenox Code status: DNR Prognosis: stable Disposition: inpatient med surg; Pending SNF Time Spent With Patient Time: Total time spent is greater than 50% in coordination of care (as documented) at patient's floor/unit and/or counseling patient: Total time spent with greater than 50% in coordination of care (as documented) at patient's floor/unit and/or counseling patient:: 25 - 35 minutes QUALITY VTE Deep Vein Thrombosis/Pulmonary Embolism Present on Admission: No
[2022-05-21] MEDS: hydrALAZINE 10 MG TABLET PO PRN (19:03)
[2022-05-21] MEDS: clonazePAM 1 MG TABLET PO PRN (20:11)
[2022-05-21] MEDS: QUEtiapine 100 MG TABLET PO SCH (20:11)
[2022-05-21] MEDS: hydrOXYzine 25 MG TABLET PO PRN (20:11)
[2022-05-21] MEDS: SENNOSIDES 1 TABLET PO PRN (20:11)
[2022-05-21] MEDS: Fluvoxamine 50 mg tablet PO SCH (20:12)
[2022-05-22] MEDS: INSULIN LISPRO 1 UNIT/0.01 ML UNIT SQ SCH ×4 (07:19→20:22)
[2022-05-22] MEDS: LEVOTHYROXINE 25 MCG TABLET PO SCH (07:22)
[2022-05-22] MEDS: LEVOTHYROXINE SODIUM 112 MCG TABLET PO SCH (07:23)
[2022-05-22] MEDS: ENOXAPARIN 40 MG/0.4 ML SYRINGE SQ SCH (08:40)
[2022-05-22] MEDS: ASPIRIN 81 MG TAB.CHEW PO SCH ×2 (08:41→20:22)
[2022-05-22] MEDS: lamoTRIgine 100 MG TABLET PO SCH (08:41)
[2022-05-22] MEDS: amLODIPine 5 MG TABLET PO SCH (08:41)
[2022-05-22] MEDS: GABAPENTIN 300 MG CAPSULE PO SCH ×2 (08:41→20:22)
[2022-05-22] MEDS: LOSARTAN 50 MG TABLET PO SCH (08:41)
[2022-05-22] MEDS: DOCUSATE SODIUM 100 MG CAPSULE PO SCH ×2 (08:41→20:22)
[2022-05-22] MEDS: NICOTINE 21 MG PATCH TOPICAL SCH (10:04)
--- NOTE | 2022-05-22 11:48 | Internal Med Progress Note ---
SUBJECTIVE Subjective Patient information: Note initiated : 05/22/22 at 11:47 am Service Date, if different from initiated Date: [] Patient: Cynthia Kirby 72 y/o F admitted on 05/09/22 for Dizzy. Chief Complaint: [] Principal diagnosis: Lightheadedness, dizziness, failure to thrive Interval history: Presents ED with dizziness and lightheadedness. Patient felt like she was going to pass out. Denies any headache fever chills nausea or vomiting. Denies any chest pain or shortness of breath. She was found to have sodium of 120, she is chronically low but this is lower than her usual. 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 Patient has recent guardianship and that person has been trying to place the patient in a penitentiary facility it sounds like she will go to [place] next week. 05/10 Patient had an episode of nausea vomiting after eating breakfast this morning. She says she typically does not eat that much. She has some occasional dizziness lightheadedness. Sodium elevated today faster than expected. We will provide some DDAVP and some hypotonic's fluid. 05/11 Patient feeling little better today. Denies dizziness or lightheadedness. Fluid restrict monitoring sodium closely. Phosphorus low and will replete. Met abolic acidosis. 05/12 Slept better. Feeling little better. Sodium improved as well as acid-base b alance. Continue 1800 cc fluid restrict. Case management placement likely tomorrow. 05/13 No overnight event or new complaints. Continue fluid restrict. Awaiting placement. 05/14: No major overnight event. Both sodium and potassium level normalized. We will continue 1800 cc/day fluid restrictions, while awaiting detention placement. 05/15: No major overnight events. No checking daily labs anymore. We will continue 1800 cc/day fluid restrictions, while awaiting detention placement. 05/16: No major overnight events. No checking daily labs anymore. We will continue 1800 cc/day fluid restrictions, while awaiting detention placement. 05/17: No major overnight events. No checking daily labs anymore. We will continue 1800 cc/day fluid restrictions, while awaiting detention placement. 05/18: No major overnight events. No checking daily labs anymore. We will continue 1800 cc/day fluid restrictions, while awaiting detention placement. 05/19: No major overnight events. No checking daily labs anymore. We will continue 1800 cc/day fluid restrictions, while awaiting detention placement. 05/20: No major overnight events. No checking daily labs anymore. We will continue 1800 cc/day fluid restrictions, while awaiting detention placement. 05/21: I have taken over the care of this patient and she is medically status quo. We will continue to look for placement. 05/22: The patient was resting comfortably in bed. She has no active complaints or concerns Constitutional Vitals: Vital Signs Temp Pulse Resp BP Pulse Ox O2 Del Method O2 Flow Rate 98.2 F 73 16 139/93 97 0 05/22/22 07:36 05/22/22 07:36 05/22/22 07:36 05/22/22 07:36 05/22/22 07:36 05/22/22 07:36 05/13/22 12:12 Period Temp Pulse Resp BP Sys/Norris Pulse Ox O2 Del Method O2 Flow Rate Last 24 Hr 97.1 F-98.3 F 66-84 16-18 102-171/62-99 95-99 Room Air-Room Air Intake and Output 05/21/22 05/22/22 05/22/22 21:59 05:59 13:59 Intake Total 200 120 240 Output Total 1175 225 450 Balance -975 -105 -210 Weight 84.64 kg Intake & Output: Intake & Output 05/21/22 05/22/22 05/22/22 21:59 05:59 13:59 Intake Total 200 120 240 Output Total 1175 225 450 Balance -975 -105 -210 Weight 84.64 kg Intake: Oral 200 120 240 Output: Void Amount 1175 225 450 # of times incontinent of urine 0 Other: Meal Dinner Percent of Meal Consumed 100% Feeding Ability Independent Urine Appearance Clear Clear Urine Color Pale Pale Urine Odor Normal Normal # Voids 0 OBJ DATA Labs CBC & Chem 7: 05/09/22 20:42 05/12/22 05:44 Meds: Medications Acetaminophen (Acetaminophen 325 Mg Tablet) 650 mg PO Q6HP PRN; Protocol PRN Reason: Per Pain Protocol/Fever > 101 Last Admin: 05/17/22 07:24 Dose: 650 mg Albuterol/Ipratropium (Ipratropium/Albuterol 3 Ml Ampul.Neb) 3 ml NEB Q4HP PRN PRN Reason: Shortness Of Breath Amlodipine Besylate (Amlodipine 5 Mg Tablet) 5 mg PO DAILY [facility] Last Admin: 05/22/22 08:41 Dose: 5 mg Aspirin (Aspirin 81 Mg Tab.Chew) 81 mg PO BID [facility] Last Admin: 05/22/22 08:41 Dose: 81 mg Clonazepam (Clonazepam 1 Mg Tablet) 1 mg PO TIDP PRN PRN Reason: Agitation Last Admin: 05/21/22 20:11 Dose: 1 mg Dextrose (Dextrose 50% 50 Ml Vial) 0 ml IV UD PRN PRN Reason: Per Sliding Scale Diagnostic Test (Pha) (Accu-Chek 1 Each Strip) 1 each FS ACHS [facility] Last Admin: 05/22/22 11:32 Dose: 1 each Docusate Sodium (Docusate Sodium 100 Mg Capsule) 100 mg PO BID [facility] Last Admin: 05/22/22 08:41 Dose: 100 mg Enoxaparin Sodium (Enoxaparin 40 Mg/0.4 Ml Syringe) 40 mg SQ DAILY [facility] Last Admin: 05/22/22 08:40 Dose: 40 mg Gabapentin (Gabapentin 300 Mg Capsule) 300 mg PO BID [facility] Last Admin: 05/22/22 08:41 Dose: 300 mg Glucose (Dextrose 31 Gm Oral.Susp) 15 gm PO PRN PRN PRN Reason: Hypoglycemia Hydralazine HCl (Hydralazine 20 Mg/Ml Vial) 0 mg IV Q2HP PRN PRN Reason: Hypertension Hydralazine HCl (Hydralazine 10 Mg Tablet) 10 mg PO Q6HP PRN PRN Reason: SBP > 150 Last Admin: 05/21/22 19:03 Dose: 10 mg Hydroxyzine HCl (Hydroxyzine 25 Mg Tablet) 50 mg PO TIDP PRN PRN Reason: anxiety Last Admin: 05/21/22 20:11 Dose: 50 mg Potassium Chloride 40 meq/ (Dextrose) 520 mls @ 130 mls/hr IV UD PRN PRN Reason: Potassium < 3 Magnesium Sulfate (Magnesium Sulfate) 2 gm in 50 mls @ 50 mls/hr IV UD PRN PRN Reason: Magnesium </= 1.6 Insulin Human Lispro (Insulin Lispro 1 Unit/0.01 Ml Unit) 0 unit SQ ACHS [facility]; Protocol Last Admin: 05/22/22 11:32 Dose: Not Given Labetalol HCl (Labetalol 5 Mg/Ml Ml) 0 mg IV Q2HP PRN PRN Reason: Hypertension Lamotrigine (Lamotrigine 100 Mg Tablet) 100 mg PO DAILY [facility] Last Admin: 05/22/22 08:41 Dose: 100 mg Levothyroxine Sodium (Levothyroxine Sodium 112 Mcg Tablet) [facility] Last Admin: 05/22/22 07:23 Dose: 112 mcg Levothyroxine Sodium (Levothyroxine 25 Mcg Tablet) [facility] Last Admin: 05/22/22 07:22 Dose: 25 mcg Losartan Potassium (Losartan 50 Mg Tablet) 50 mg PO DAILY [facility] Last Admin: 05/22/22 08:41 Dose: 50 mg Magnesium Hydroxide (Magnesium Hydroxide 30 Ml Oral.Susp) 30 ml PO HSP PRN PRN Reason: Constipation Nicotine (Nicotine 21 Mg Patch) 21 mg TOPICAL DAILY@1000 [facility] Last Admin: 05/22/22 10:04 Dose: 21 mg Olanzapine (Olanzapine 5 Mg Tablet) 5 mg PO HSP PRN PRN Reason: aggitation Last Admin: 05/20/22 20:02 Dose: 5 mg Ondansetron HCl (Ondansetron 4 Mg/2 Ml Vial) 4 mg IV Q4HP PRN PRN Reason: Nausea And Vomiting Last Admin: 05/10/22 08:10 Dose: 4 mg Fluvoxamine 50 Mg (Tablet) 1 dose PO [facility] Last Admin: 05/21/22 20:12 Dose: Not Given Linaclotide [Linzess (] 290 Mcg Capsule) 1 dose PO QDAY [facility] Last Admin: 05/22/22 08:41 Dose: Not Given Polyethylene Glycol (Polyethylene Glycol 3350 17 Gm Packet) 17 gm PO DAILYP PRN PRN Reason: Constipation Last Admin: 05/20/22 07:37 Dose: 17 gm Polyethylene Glycol (Polyethylene Glycol 3350 17 Gm Packet) 17 gm PO DAILYP PRN PRN Reason: Constipation Potassium Chloride (Potassium Chloride 20 Meq Tablet) 40 meq PO UD PRN PRN Reason: Potssium is 3-3.5 Last Admin: 05/10/22 21:42 Dose: 40 meq Potassium Chloride (Potassium Chloride 20 Meq Tablet) 40 meq PO UD PRN PRN Reason: Potassium < 3 Quetiapine Fumarate (Quetiapine 100 Mg Tablet) 400 mg PO HS YG Last Admin: 05/21/22 20:11 Dose: 400 mg Senna (Sennosides 1 Tablet) 2 tab PO DAILYP PRN PRN Reason: Constipation Last Admin: 05/21/22 20:11 Dose: 2 tab A/P Assessment and plan (1) Psychogenic polydipsia: Status: Chronic (2) Hypertension, essential: Status: Chronic (3) Hypothyroidism (acquired): Status: Chronic (4) Diabetes mellitus type 2, controlled: Status: Chronic Qualifiers: Diabetes mellitus fdc insulin use: without fdc use Diabetes mellitus complication status: with unspecified complications Qualified Code(s): E11.8 - Type 2 diabetes mellitus with unspecified complications (5) Bipolar I disorder with depression: Status: Acute (6) Dementia: Status: Acute Narrative A/P Narrative: Assessment and Plans: 1. Psychogenic polydipsia: Resolved Inpatient med surg 1800cc/day fluid restriction Electrolytes already back to the baseline so there is no need to do daily labs Pending detention placement 2. Hypothyroidism: Continue thyroid replacement therapy 3. T2DM: HgA1c Hold oral hypoglycemics SSI AC HS Accu Chek AC HS Hypoglycemia protocol Diabetic diet Gabapentin 4. Dementia: Pending SNF placement 5. Bipolar depression with anxiety: Seroquel Zyprexa PRN agitation/psychosis Clonazepam PRN anxiety 6. Essential HTN: Losartan Amlodipine GI ppx: not indicated DVT ppx: Lovenox Code status: DNR Prognosis: stable Disposition: inpatient med surg; Pending SNF Time Spent With Patient Time: Total time spent is greater than 50% in coordination of care (as documented) at patient's floor/unit and/or counseling patient: Total time spent with greater than 50% in coordination of care (as documented) at patient's floor/unit and/or counseling patient:: 25 - 35 minutes QUALITY VTE Deep Vein Thrombosis/Pulmonary Embolism Present on Admission: No
[2022-05-22] MEDS: MAGNESIUM HYDROXIDE 30 ML ORAL.SUSP PO PRN (12:36)
[2022-05-22] MEDS: hydrOXYzine 25 MG TABLET PO PRN ×2 (18:47→23:44)
[2022-05-22] MEDS: clonazePAM 1 MG TABLET PO PRN ×2 (18:47→23:24)
[2022-05-22] MEDS: OLANZapine 5 MG TABLET PO PRN (20:22)
[2022-05-22] MEDS: Fluvoxamine 50 mg tablet PO SCH (20:22)
[2022-05-22] MEDS: QUEtiapine 100 MG TABLET PO SCH (20:22)
[2022-05-23] MEDS: hydrOXYzine 25 MG TABLET PO PRN ×3 (07:24→20:02)
[2022-05-23] MEDS: ACETAMINOPHEN 325 MG TABLET PO PRN (07:24)
[2022-05-23] MEDS: LEVOTHYROXINE 25 MCG TABLET PO SCH (07:24)
[2022-05-23] MEDS: LEVOTHYROXINE SODIUM 112 MCG TABLET PO SCH (07:24)
[2022-05-23] MEDS: OLANZapine 5 MG TABLET PO PRN ×2 (07:24→15:24)
[2022-05-23] MEDS: clonazePAM 1 MG TABLET PO PRN ×3 (07:24→20:02)
[2022-05-23] MEDS: INSULIN LISPRO 1 UNIT/0.01 ML UNIT SQ SCH ×4 (07:29→20:03)
[2022-05-23] MEDS: lamoTRIgine 100 MG TABLET PO SCH (10:02)
[2022-05-23] MEDS: GABAPENTIN 300 MG CAPSULE PO SCH ×2 (10:02→20:02)
[2022-05-23] MEDS: ASPIRIN 81 MG TAB.CHEW PO SCH ×2 (10:02→20:03)
[2022-05-23] MEDS: DOCUSATE SODIUM 100 MG CAPSULE PO SCH ×2 (10:02→20:02)
[2022-05-23] MEDS: LOSARTAN 50 MG TABLET PO SCH (10:02)
[2022-05-23] MEDS: amLODIPine 5 MG TABLET PO SCH (10:02)
[2022-05-23] MEDS: ENOXAPARIN 40 MG/0.4 ML SYRINGE SQ SCH (10:07)
[2022-05-23] MEDS: NICOTINE 21 MG PATCH TOPICAL SCH (10:09)
--- NOTE | 2022-05-23 10:24 | Internal Med Progress Note ---
SUBJECTIVE Subjective Patient information: Note initiated : 05/23/22 at 10:22 am Service Date, if different from initiated Date: [] Patient: Cynthia Kirby 72 y/o F admitted on 05/09/22 for Dizzy. Chief Complaint: [] Principal diagnosis: Lightheadedness, dizziness, failure to thrive Interval history: The patient was resting comfortably in bed. She remains medically status quo. Constitutional Vitals: Vital Signs Temp Pulse Resp BP Pulse Ox O2 Del Method O2 Flow Rate 97.2 F 76 14 147/82 96 0 05/23/22 06:46 05/23/22 06:46 05/23/22 06:46 05/23/22 06:46 05/23/22 07:25 05/23/22 07:25 05/13/22 12:12 Period Temp Pulse Resp BP Sys/Norris Pulse Ox O2 Del Method O2 Flow Rate Last 24 Hr 97.0 F-98.4 F 66-85 14-24 97-165/63-87 95-98 Room Air-Room Air Intake and Output 05/22/22 05/23/22 05/23/22 21:59 05:59 13:59 Intake Total 720 360 120 Output Total 600 600 Balance 120 360 -480 Weight 84.187 kg Intake & Output: Intake & Output 05/22/22 05/23/22 05/23/22 21:59 05:59 13:59 Intake Total 720 360 120 Output Total 600 600 Balance 120 360 -480 Weight 84.187 kg Intake: Oral 720 360 120 Output: Void Amount 600 600 Other: Meal Breakfast Percent of Meal Consumed 100% Feeding Ability Assist with Tray Set Up Urine Appearance Clear Urine Color Yellow Stool Size Large Stool Color Brown Stool Consistency Formed Head Head exam: Present atraumatic and normal inspection Eye Eye exam: Present normal appearance ENT ENT exam: Present mucous membranes moist, normal exam and normal external ear exam Neck Neck exam: Present normal inspection Respiratory Respiratory exam: Present normal respiratory exam Cardiovascular Cardiovascular exam: Present normal rate and rhythm GI/Abdominal GI/Abdominal exam: Present normal bowel sounds Back Exam Back exam: Present normal inspection Neurological Exam Neurological exam: Present alert and oriented X3 Skin Skin exam: Present intact and warm OBJ DATA Labs CBC & Chem 7: 05/09/22 20:42 05/12/22 05:44 Meds: Medications Acetaminophen (Acetaminophen 325 Mg Tablet) 650 mg PO Q6HP PRN; Protocol PRN Reason: Per Pain Protocol/Fever > 101 Last Admin: 05/23/22 07:24 Dose: 650 mg Albuterol/Ipratropium (Ipratropium/Albuterol 3 Ml Ampul.Neb) 3 ml NEB Q4HP PRN PRN Reason: Shortness Of Breath Amlodipine Besylate (Amlodipine 5 Mg Tablet) 5 mg PO DAILY [facility] Last Admin: 05/23/22 10:02 Dose: 5 mg Aspirin (Aspirin 81 Mg Tab.Chew) 81 mg PO BID [facility] Last Admin: 05/23/22 10:02 Dose: 81 mg Clonazepam (Clonazepam 1 Mg Tablet) 1 mg PO TIDP PRN PRN Reason: Agitation Last Admin: 05/23/22 07:24 Dose: 1 mg Dextrose (Dextrose 50% 50 Ml Vial) 0 ml IV UD PRN PRN Reason: Per Sliding Scale Diagnostic Test (Pha) (Accu-Chek 1 Each Strip) 1 each FS ACHS [facility] Last Admin: 05/23/22 07:20 Dose: 1 each Docusate Sodium (Docusate Sodium 100 Mg Capsule) 100 mg PO BID [facility] Last Admin: 05/23/22 10:02 Dose: 100 mg Enoxaparin Sodium (Enoxaparin 40 Mg/0.4 Ml Syringe) 40 mg SQ DAILY [facility] Last Admin: 05/23/22 10:07 Dose: 40 mg Gabapentin (Gabapentin 300 Mg Capsule) 300 mg PO BID [facility] Last Admin: 05/23/22 10:02 Dose: 300 mg Glucose (Dextrose 31 Gm Oral.Susp) 15 gm PO PRN PRN PRN Reason: Hypoglycemia Hydralazine HCl (Hydralazine 20 Mg/Ml Vial) 0 mg IV Q2HP PRN PRN Reason: Hypertension Hydralazine HCl (Hydralazine 10 Mg Tablet) 10 mg PO Q6HP PRN PRN Reason: SBP > 150 Last Admin: 05/21/22 19:03 Dose: 10 mg Hydroxyzine HCl (Hydroxyzine 25 Mg Tablet) 50 mg PO TIDP PRN PRN Reason: anxiety Last Admin: 05/23/22 07:24 Dose: 50 mg Potassium Chloride 40 meq/ (Dextrose) 520 mls @ 130 mls/hr IV UD PRN PRN Reason: Potassium < 3 Magnesium Sulfate (Magnesium Sulfate) 2 gm in 50 mls @ 50 mls/hr IV UD PRN PRN Reason: Magnesium </= 1.6 Insulin Human Lispro (Insulin Lispro 1 Unit/0.01 Ml Unit) 0 unit SQ [facility]; Protocol Last Admin: 05/23/22 07:29 Dose: Not Given Labetalol HCl (Labetalol 5 Mg/Ml Ml) 0 mg IV Q2HP PRN PRN Reason: Hypertension Lamotrigine (Lamotrigine 100 Mg Tablet) 100 mg PO DAILY [facility] Last Admin: 05/23/22 10:02 Dose: 100 mg Levothyroxine Sodium (Levothyroxine Sodium 112 Mcg Tablet) [facility] Last Admin: 05/23/22 07:24 Dose: 112 mcg Levothyroxine Sodium (Levothyroxine 25 Mcg Tablet) 25 [facility] Last Admin: 05/23/22 07:24 Dose: 25 mcg Losartan Potassium (Losartan 50 Mg Tablet) 50 mg PO DAILY [facility] Last Admin: 05/23/22 10:02 Dose: 50 mg Magnesium Hydroxide (Magnesium Hydroxide 30 Ml Oral.Susp) 30 ml PO HSP PRN PRN Reason: Constipation Last Admin: 05/22/22 12:36 Dose: 30 ml Nicotine (Nicotine 21 Mg Patch) 21 mg TOPICAL DAILY@1000 [facility] Last Admin: 05/23/22 10:09 Dose: 21 mg Olanzapine (Olanzapine 5 Mg Tablet) 5 mg PO HSP PRN PRN Reason: aggitation Last Admin: 05/23/22 07:24 Dose: 5 mg Ondansetron HCl (Ondansetron 4 Mg/2 Ml Vial) 4 mg IV Q4HP PRN PRN Reason: Nausea And Vomiting Last Admin: 05/10/22 08:10 Dose: 4 mg Fluvoxamine 50 Mg (Tablet) 1 dose PO [facility] Last Admin: 05/22/22 20:22 Dose: Not Given Linaclotide [Linzess (] 290 Mcg Capsule) 1 dose PO QDAY [facility] Last Admin: 05/23/22 10:09 Dose: Not Given Polyethylene Glycol (Polyethylene Glycol 3350 17 Gm Packet) 17 gm PO DAILYP PRN PRN Reason: Constipation Last Admin: 05/20/22 07:37 Dose: 17 gm Polyethylene Glycol (Polyethylene Glycol 3350 17 Gm Packet) 17 gm PO DAILYP PRN PRN Reason: Constipation Potassium Chloride (Potassium Chloride 20 Meq Tablet) 40 meq PO UD PRN PRN Reason: Potssium is 3-3.5 Last Admin: 05/10/22 21:42 Dose: 40 meq Potassium Chloride (Potassium Chloride 20 Meq Tablet) 40 meq PO UD PRN PRN Reason: Potassium < 3 Quetiapine Fumarate (Quetiapine 100 Mg Tablet) 400 mg PO HS YG Last Admin: 05/22/22 20:22 Dose: 400 mg Senna (Sennosides 1 Tablet) 2 tab PO DAILYP PRN PRN Reason: Constipation Last Admin: 05/21/22 20:11 Dose: 2 tab A/P Assessment and plan (1) Psychogenic polydipsia: Status: Chronic (2) Hypertension, essential: Status: Chronic (3) Hypothyroidism (acquired): Status: Chronic (4) Diabetes mellitus type 2, controlled: Status: Chronic Qualifiers: Diabetes mellitus 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 Psychogenic polydipsia: Resolved Inpatient med surg 1800cc/day fluid restriction Electrolytes already back to the baseline so there is no need to do daily labs Pending senior care placement 2. Hypothyroidism: Continue thyroid replacement therapy 3. T2DM: HgA1c Hold oral hypoglycemics SSI AC HS Accu Chek AC HS Hypoglycemia protocol Diabetic diet Gabapentin 4. Dementia: Pending SNF placement 5. Bipolar depression with anxiety: Seroquel Zyprexa PRN agitation/psychosis Clonazepam PRN anxiety 6. Essential HTN: Losartan Amlodipine GI ppx: not indicated DVT ppx: Lovenox Code status: DNR Prognosis: stable Disposition: inpatient med surg; Pending SNF Time Spent With Patient Time: Total time spent is greater than 50% in coordination of care (as documented) at patient's floor/unit and/or counseling patient: Total time spent with greater than 50% in coordination of care (as documented) at patient's floor/unit and/or counseling patient:: 25 - 35 minutes QUALITY VTE Deep Vein Thrombosis/Pulmonary Embolism Present on Admission: No
[2022-05-23] MEDS: QUEtiapine 100 MG TABLET PO SCH (20:03)
[2022-05-23] MEDS: Fluvoxamine 50 mg tablet PO SCH (20:06)
[2022-05-24] MEDS: LEVOTHYROXINE 25 MCG TABLET PO SCH (07:20)
[2022-05-24] MEDS: clonazePAM 1 MG TABLET PO PRN ×2 (07:20→20:06)
[2022-05-24] MEDS: hydrOXYzine 25 MG TABLET PO PRN ×2 (07:20→20:06)
[2022-05-24] MEDS: LEVOTHYROXINE SODIUM 112 MCG TABLET PO SCH (07:20)
[2022-05-24] MEDS: INSULIN LISPRO 1 UNIT/0.01 ML UNIT SQ SCH ×4 (07:26→20:10)
[2022-05-24] MEDS: ASPIRIN 81 MG TAB.CHEW PO SCH ×2 (08:56→20:06)
[2022-05-24] MEDS: LOSARTAN 50 MG TABLET PO SCH (08:57)
[2022-05-24] MEDS: amLODIPine 5 MG TABLET PO SCH (08:57)
[2022-05-24] MEDS: lamoTRIgine 100 MG TABLET PO SCH (08:57)
[2022-05-24] MEDS: GABAPENTIN 300 MG CAPSULE PO SCH ×2 (08:57→20:06)
[2022-05-24] MEDS: DOCUSATE SODIUM 100 MG CAPSULE PO SCH ×3 (08:57→20:05)
[2022-05-24] MEDS: NICOTINE 21 MG PATCH TOPICAL SCH (09:00)
[2022-05-24] MEDS: ENOXAPARIN 40 MG/0.4 ML SYRINGE SQ SCH (09:00)
--- NOTE | 2022-05-24 13:10 | Internal Med Progress Note ---
SUBJECTIVE Subjective Patient information: Note initiated : 05/24/22 at 1:09 pm Service Date, if different from initiated Date: [] Patient: Cynthia Kirby 72 y/o F admitted on 05/09/22 for Dizzy. Chief Complaint: [] Principal diagnosis: Lightheadedness, dizziness, failure to thrive Interval history: The patient was resting comfortably in bed. She was calm and cooperative this morning. She usually tells the same story each morning. Constitutional Vitals: Vital Signs Temp Pulse Resp BP Pulse Ox O2 Del Method O2 Flow Rate 98.3 F 73 18 136/73 98 0 05/24/22 11:39 05/24/22 11:39 05/24/22 11:39 05/24/22 11:39 05/24/22 11:39 05/24/22 07:25 05/13/22 12:12 Period Temp Pulse Resp BP Sys/Norris Pulse Ox O2 Del Method O2 Flow Rate Last 24 Hr 96.2 F-98.3 F 67-84 12-20 125-159/73-81 94-99 Room Air-Room Air Intake and Output 05/23/22 05/24/22 05/24/22 21:59 05:59 13:59 Intake Total 832 100 827 Output Total 1200 375 Balance -368 100 452 Weight 85.185 kg Intake & Output: Intake & Output 05/23/22 05/24/22 05/24/22 21:59 05:59 13:59 Intake Total 832 100 827 Output Total 1200 375 Balance -368 100 452 Weight 85.185 kg Intake: Oral 832 100 827 Output: Void Amount 1200 375 Other: Meal michael cracker Lunch Percent of Meal Consumed 100% 100% Feeding Ability Independent Assist with Tray Set Up Urine Appearance Clear Cloudy Urine Color Yellow Bright Yellow Urine Odor Normal Head Head exam: Present atraumatic and normal inspection Eye Eye exam: Present normal appearance ENT ENT exam: Present mucous membranes moist, normal exam and normal external ear exam Neck Neck exam: Present normal inspection Respiratory Respiratory exam: Present normal respiratory exam Cardiovascular Cardiovascular exam: Present normal rate and rhythm GI/Abdominal GI/Abdominal exam: Present normal bowel sounds Back Exam Back exam: Present normal inspection Neurological Exam Neurological exam: Present alert and oriented X3 Skin Skin exam: Present intact and warm OBJ DATA Labs CBC & Chem 7: 05/09/22 20:42 05/12/22 05:44 Meds: Medications Acetaminophen (Acetaminophen 325 Mg Tablet) 650 mg PO Q6HP PRN; Protocol PRN Reason: Per Pain Protocol/Fever > 101 Last Admin: 05/23/22 07:24 Dose: 650 mg Albuterol/Ipratropium (Ipratropium/Albuterol 3 Ml Ampul.Neb) 3 ml NEB Q4HP PRN PRN Reason: Shortness Of Breath Amlodipine Besylate (Amlodipine 5 Mg Tablet) 5 mg PO DAILY [facility] Last Admin: 05/24/22 08:57 Dose: 5 mg Aspirin (Aspirin 81 Mg Tab.Chew) 81 mg PO BID [facility] Last Admin: 05/24/22 08:56 Dose: 81 mg Clonazepam (Clonazepam 1 Mg Tablet) 1 mg PO TIDP PRN PRN Reason: Agitation Last Admin: 05/24/22 07:20 Dose: 1 mg Dextrose (Dextrose 50% 50 Ml Vial) 0 ml IV UD PRN PRN Reason: Per Sliding Scale Diagnostic Test (Pha) (Accu-Chek 1 Each Strip) 1 each FS ACHS [facility] Last Admin: 05/24/22 11:07 Dose: 1 each Docusate Sodium (Docusate Sodium 100 Mg Capsule) 100 mg PO BID [facility] Last Admin: 05/24/22 09:00 Dose: Not Given Enoxaparin Sodium (Enoxaparin 40 Mg/0.4 Ml Syringe) 40 mg SQ DAILY [facility] Last Admin: 05/24/22 09:00 Dose: 40 mg Gabapentin (Gabapentin 300 Mg Capsule) 300 mg PO BID [facility] Last Admin: 05/24/22 08:57 Dose: 300 mg Glucose (Dextrose 31 Gm Oral.Susp) 15 gm PO PRN PRN PRN Reason: Hypoglycemia Hydralazine HCl (Hydralazine 20 Mg/Ml Vial) 0 mg IV Q2HP PRN PRN Reason: Hypertension Hydralazine HCl (Hydralazine 10 Mg Tablet) 10 mg PO Q6HP PRN PRN Reason: SBP > 150 Last Admin: 05/21/22 19:03 Dose: 10 mg Hydroxyzine HCl (Hydroxyzine 25 Mg Tablet) 50 mg PO TIDP PRN PRN Reason: anxiety Last Admin: 05/24/22 07:20 Dose: 50 mg Potassium Chloride 40 meq/ (Dextrose) 520 mls @ 130 mls/hr IV UD PRN PRN Reason: Potassium < 3 Magnesium Sulfate (Magnesium Sulfate) 2 gm in 50 mls @ 50 mls/hr IV UD PRN PRN Reason: Magnesium </= 1.6 Insulin Human Lispro (Insulin Lispro 1 Unit/0.01 Ml Unit) 0 unit SQ ACHS [facility]; Protocol Last Admin: 05/24/22 11:12 Dose: Not Given Labetalol HCl (Labetalol 5 Mg/Ml Ml) 0 mg IV Q2HP PRN PRN Reason: Hypertension Lamotrigine (Lamotrigine 100 Mg Tablet) 100 mg PO DAILY [facility] Last Admin: 05/24/22 08:57 Dose: 100 mg Levothyroxine Sodium ([facility]othyroxine Sodium 112 Mcg Tablet) [facility] Last Admin: 05/24/22 07:20 Dose: 112 mcg Levothyroxine Sodium (Levothyroxine 25 Mcg Tablet) [facility] Last Admin: 05/24/22 07:20 Dose: 25 mcg Losartan Potassium (Losartan 50 Mg Tablet) 50 mg PO DAILY [facility] Last Admin: 05/24/22 08:57 Dose: 50 mg Magnesium Hydroxide (Magnesium Hydroxide 30 Ml Oral.Susp) 30 ml PO HSP PRN PRN Reason: Constipation Last Admin: 05/22/22 12:36 Dose: 30 ml Nicotine (Nicotine 21 Mg Patch) 21 mg TOPICAL DAILY@1000 [facility] Last Admin: 05/24/22 09:00 Dose: 21 mg Olanzapine (Olanzapine 5 Mg Tablet) 5 mg PO HSP PRN PRN Reason: aggitation Last Admin: 05/23/22 15:24 Dose: 5 mg Ondansetron HCl (Ondansetron 4 Mg/2 Ml Vial) 4 mg IV Q4HP PRN PRN Reason: Nausea And Vomiting Last Admin: 05/10/22 08:10 Dose: 4 mg Fluvoxamine 50 Mg (Tablet) 1 dose PO [facility] Last Admin: 05/23/22 20:06 Dose: Not Given Linaclotide [Linzess (] 290 Mcg Capsule) 1 dose PO QDAY [facility] Last Admin: 05/24/22 08:50 Dose: Not Given Polyethylene Glycol (Polyethylene Glycol 3350 17 Gm Packet) 17 gm PO DAILYP PRN PRN Reason: Constipation Last Admin: 05/20/22 07:37 Dose: 17 gm Polyethylene Glycol (Polyethylene Glycol 3350 17 Gm Packet) 17 gm PO DAILYP PRN PRN Reason: Constipation Potassium Chloride (Potassium Chloride 20 Meq Tablet) 40 meq PO UD PRN PRN Reason: Potssium is 3-3.5 Last Admin: 05/10/22 21:42 Dose: 40 meq Potassium Chloride (Potassium Chloride 20 Meq Tablet) 40 meq PO UD PRN PRN Reason: Potassium < 3 Quetiapine Fumarate (Quetiapine 100 Mg Tablet) 400 mg PO HS YG Last Admin: 05/23/22 20:03 Dose: 400 mg Senna (Sennosides 1 Tablet) 2 tab PO DAILYP PRN PRN Reason: Constipation Last Admin: 05/21/22 20:11 Dose: 2 tab A/P Assessment and plan (1) Psychogenic polydipsia: Status: Chronic (2) Hypertension, essential: Status: Chronic (3) Hypothyroidism (acquired): Status: Chronic (4) Diabetes mellitus type 2, controlled: Status: Chronic Qualifiers: Diabetes mellitus chcf insulin use: without chcf use Diabetes mellitus complication status: with unspecified complications Qualified Code(s): E11.8 - Type 2 diabetes mellitus with unspecified complications (5) Bipolar I disorder with depression: Status: Acute (6) Dementia: Status: Acute Narrative A/P Narrative: Assessment and Plans: 1. Psychogenic polydipsia: Resolved Inpatient med surg 1800cc/day fluid restriction Electrolytes already back to the baseline so there is no need to do daily labs Pending senior care placement 2. Hypothyroidism: Continue thyroid replacement therapy 3. T2DM: HgA1c Hold oral hypoglycemics SSI AC HS Accu Chek AC HS Hypoglycemia protocol Diabetic diet Gabapentin 4. Dementia: Pending SNF placement 5. Bipolar depression with anxiety: Seroquel Zyprexa PRN agitation/psychosis Clonazepam PRN anxiety 6. Essential HTN: Losartan Amlodipine GI ppx: not indicated DVT ppx: Lovenox Code status: DNR Prognosis: stable Disposition: inpatient med surg; Pending SNF Time Spent With Patient Time: Total time spent is greater than 50% in coordination of care (as documented) at patient's floor/unit and/or counseling patient: Total time spent with greater than 50% in coordination of care (as documented) at patient's floor/unit and/or counseling patient:: 25 - 35 minutes QUALITY VTE Deep Vein Thrombosis/Pulmonary Embolism Present on Admission: No
[2022-05-24] MEDS: OLANZapine 5 MG TABLET PO PRN (20:05)
[2022-05-24] MEDS: QUEtiapine 100 MG TABLET PO SCH (20:06)
[2022-05-24] MEDS: Fluvoxamine 50 mg tablet PO SCH (21:54)
[2022-05-25] MEDS: INSULIN LISPRO 1 UNIT/0.01 ML UNIT SQ SCH ×4 (07:41→20:06)
[2022-05-25] MEDS: ENOXAPARIN 40 MG/0.4 ML SYRINGE SQ SCH (09:12)
[2022-05-25] MEDS: hydrOXYzine 25 MG TABLET PO PRN ×2 (09:13→20:00)
[2022-05-25] MEDS: lamoTRIgine 100 MG TABLET PO SCH (09:13)
[2022-05-25] MEDS: LOSARTAN 50 MG TABLET PO SCH (09:13)
[2022-05-25] MEDS: GABAPENTIN 300 MG CAPSULE PO SCH ×2 (09:13→19:59)
[2022-05-25] MEDS: amLODIPine 5 MG TABLET PO SCH (09:13)
[2022-05-25] MEDS: LEVOTHYROXINE SODIUM 112 MCG TABLET PO SCH (09:14)
[2022-05-25] MEDS: LEVOTHYROXINE 25 MCG TABLET PO SCH (09:14)
[2022-05-25] MEDS: ASPIRIN 81 MG TAB.CHEW PO SCH ×2 (09:14→20:00)
[2022-05-25] MEDS: NICOTINE 21 MG PATCH TOPICAL SCH (09:22)
[2022-05-25] MEDS: DOCUSATE SODIUM 100 MG CAPSULE PO SCH ×2 (10:57→19:59)
--- NOTE | 2022-05-25 11:02 | Internal Med Progress Note ---
SUBJECTIVE Subjective Patient information: Note initiated : 05/25/22 at 11:01 am Service Date, if different from initiated Date: [] Patient: Cynthia Kirby 72 y/o F admitted on 05/09/22 for Dizzy. Chief Complaint: [] Principal diagnosis: Lightheadedness, dizziness, failure to thrive Interval history: The patient is resting in bed. She has no active complaints or concerns Constitutional Vitals: Vital Signs Temp Pulse Resp BP Pulse Ox O2 Del Method O2 Flow Rate 98 F 78 20 132/83 97 0 05/25/22 08:00 05/25/22 04:00 05/25/22 08:00 05/25/22 08:00 05/25/22 08:00 05/25/22 08:00 05/13/22 12:12 Period Temp Pulse Resp BP Sys/Norris Pulse Ox O2 Del Method O2 Flow Rate Last 24 Hr 97.6 F-98.6 F 73-85 16-20 128-163/71-120 93-98 Room Air-Room Air Intake and Output 05/24/22 05/25/22 05/25/22 21:59 05:59 13:59 Intake Total 487 180 Output Total 1250 675 Balance -763 -495 Weight 89.947 kg Intake & Output: Intake & Output 05/24/22 05/25/22 05/25/22 21:59 05:59 13:59 Intake Total 487 180 Output Total 1250 675 Balance -763 -495 Weight 89.947 kg Intake: Oral 487 180 Output: Void Amount 1250 675 Other: Meal Dinner Percent of Meal Consumed 100% Feeding Ability Independent Urine Appearance Clear Urine Color Yellow Head Head exam: Present atraumatic and normal inspection Eye Eye exam: Present normal appearance ENT ENT exam: Present mucous membranes moist, normal exam and normal external ear exam Neck Neck exam: Present normal inspection Respiratory Respiratory exam: Present normal respiratory exam Cardiovascular Cardiovascular exam: Present normal rate and rhythm GI/Abdominal GI/Abdominal exam: Present normal bowel sounds Back Exam Back exam: Present normal inspection Neurological Exam Neurological exam: Present alert and oriented X3 Skin Skin exam: Present intact and warm OBJ DATA Labs CBC & Chem 7: 05/09/22 20:42 05/12/22 05:44 Meds: Medications Acetaminophen (Acetaminophen 325 Mg Tablet) 650 mg PO Q6HP PRN; Protocol PRN Reason: Per Pain Protocol/Fever > 101 Last Admin: 05/23/22 07:24 Dose: 650 mg Albuterol/Ipratropium (Ipratropium/Albuterol 3 Ml Ampul.Neb) 3 ml NEB Q4HP PRN PRN Reason: Shortness Of Breath Amlodipine Besylate (Amlodipine 5 Mg Tablet) 5 mg PO DAILY [facility] Last Admin: 05/25/22 09:13 Dose: 5 mg Aspirin (Aspirin 81 Mg Tab.Chew) 81 mg PO BID [facility] Last Admin: 05/25/22 09:14 Dose: 81 mg Clonazepam (Clonazepam 1 Mg Tablet) 1 mg PO TIDP PRN PRN Reason: Agitation Last Admin: 05/24/22 20:06 Dose: 1 mg Dextrose (Dextrose 50% 50 Ml Vial) 0 ml IV UD PRN PRN Reason: Per Sliding Scale Diagnostic Test (Pha) (Accu-Chek 1 Each Strip) 1 each FS ACHS [facility] Last Admin: 05/25/22 09:11 Dose: 1 each Docusate Sodium (Docusate Sodium 100 Mg Capsule) 100 mg PO BID [facility] Last Admin: 05/25/22 10:57 Dose: Not Given Enoxaparin Sodium (Enoxaparin 40 Mg/0.4 Ml Syringe) 40 mg SQ DAILY [facility] Last Admin: 05/25/22 09:12 Dose: 40 mg Gabapentin (Gabapentin 300 Mg Capsule) 300 mg PO BID [facility] Last Admin: 05/25/22 09:13 Dose: 300 mg Glucose (Dextrose 31 Gm Oral.Susp) 15 gm PO PRN PRN PRN Reason: Hypoglycemia Hydralazine HCl (Hydralazine 20 Mg/Ml Vial) 0 mg IV Q2HP PRN PRN Reason: Hypertension Hydralazine HCl (Hydralazine 10 Mg Tablet) 10 mg PO Q6HP PRN PRN Reason: SBP > 150 Last Admin: 05/21/22 19:03 Dose: 10 mg Hydroxyzine HCl (Hydroxyzine 25 Mg Tablet) 50 mg PO TIDP PRN PRN Reason: anxiety Last Admin: 05/25/22 09:13 Dose: 50 mg Potassium Chloride 40 meq/ (Dextrose) 520 mls @ 130 mls/hr IV UD PRN PRN Reason: Potassium < 3 Magnesium Sulfate (Magnesium Sulfate) 2 gm in 50 mls @ 50 mls/hr IV UD PRN PRN Reason: Magnesium </= 1.6 Insulin Human Lispro (Insulin Lispro 1 Unit/0.01 Ml Unit) 0 unit SQ [facility]; Protocol Last Admin: 05/25/22 07:41 Dose: Not Given Labetalol HCl (Labetalol 5 Mg/Ml Ml) 0 mg IV Q2HP PRN PRN Reason: Hypertension Lamotrigine (Lamotrigine 100 Mg Tablet) 100 mg PO DAILY [facility] Last Admin: 05/25/22 09:13 Dose: 100 mg Levothyroxine Sodium (Levothyroxine Sodium 112 Mcg Tablet) [facility] Last Admin: 05/25/22 09:14 Dose: 112 mcg Levothyroxine Sodium (Levothyroxine 25 Mcg Tablet) [facility] Last Admin: 05/25/22 09:14 Dose: 25 mcg Losartan Potassium (Losartan 50 Mg Tablet) 50 mg PO DAILY [facility] Last Admin: 05/25/22 09:13 Dose: 50 mg Magnesium Hydroxide (Magnesium Hydroxide 30 Ml Oral.Susp) 30 ml PO HSP PRN PRN Reason: Constipation Last Admin: 05/22/22 12:36 Dose: 30 ml Nicotine (Nicotine 21 Mg Patch) 21 mg TOPICAL DAILY@1000 [facility] Last Admin: 05/25/22 09:22 Dose: 21 mg Olanzapine (Olanzapine 5 Mg Tablet) 5 mg PO HSP PRN PRN Reason: aggitation Last Admin: 05/24/22 20:05 Dose: 5 mg Ondansetron HCl (Ondansetron 4 Mg/2 Ml Vial) 4 mg IV Q4HP PRN PRN Reason: Nausea And Vomiting Last Admin: 05/10/22 08:10 Dose: 4 mg Fluvoxamine 50 Mg (Tablet) 1 dose PO [facility] Last Admin: 05/24/22 21:54 Dose: Not Given Linaclotide [Linzess (] 290 Mcg Capsule) 1 dose PO QDAY [facility] Last Admin: 05/25/22 09:15 Dose: Not Given Polyethylene Glycol (Polyethylene Glycol 3350 17 Gm Packet) 17 gm PO DAILYP PRN PRN Reason: Constipation Last Admin: 05/20/22 07:37 Dose: 17 gm Polyethylene Glycol (Polyethylene Glycol 3350 17 Gm Packet) 17 gm PO DAILYP PRN PRN Reason: Constipation Potassium Chloride (Potassium Chloride 20 Meq Tablet) 40 meq PO UD PRN PRN Reason: Potssium is 3-3.5 Last Admin: 05/10/22 21:42 Dose: 40 meq Potassium Chloride (Potassium Chloride 20 Meq Tablet) 40 meq PO UD PRN PRN Reason: Potassium < 3 Quetiapine Fumarate (Quetiapine 100 Mg Tablet) 400 mg PO HS YG Last Admin: 05/24/22 20:06 Dose: 400 mg Senna (Sennosides 1 Tablet) 2 tab PO DAILYP PRN PRN Reason: Constipation Last Admin: 05/21/22 20:11 Dose: 2 tab A/P Assessment and plan (1) Psychogenic polydipsia: Status: Chronic (2) Hypertension, essential: Status: Chronic (3) Hypothyroidism (acquired): Status: Chronic (4) Diabetes mellitus type 2, controlled: Status: Chronic Qualifiers: Diabetes mellitus electronic component processor insulin use: without electronic component processor use Diabetes mellitus complication status: with unspecified complications Qualified Code(s): E11.8 - Type 2 diabetes mellitus with unspecified complications (5) Bipolar I disorder with depression: Status: Acute (6) Dementia: Status: Acute Narrative A/P Narrative: Assessment and Plans: 1. Psychogenic polydipsia: Resolved Inpatient med surg 1800cc/day fluid restriction Electrolytes already back to the baseline so there is no need to do daily labs Pending intermediate placement 2. Hypothyroidism: Continue thyroid replacement therapy 3. T2DM: HgA1c Hold oral hypoglycemics SSI AC HS Accu Chek AC HS Hypoglycemia protocol Diabetic diet Gabapentin 4. Dementia: Pending SNF placement 5. Bipolar depression with anxiety: Seroquel Zyprexa PRN agitation/psychosis Clonazepam PRN anxiety 6. Essential HTN: Losartan Amlodipine GI ppx: not indicated DVT ppx: Lovenox Code status: DNR Prognosis: stable Disposition: inpatient med surg; Pending SNF Time Spent With Patient Time: Total time spent is greater than 50% in coordination of care (as documented) at patient's floor/unit and/or counseling patient: Total time spent with greater than 50% in coordination of care (as documented) a t patient's floor/unit and/or counseling patient:: 25 - 35 minutes QUALITY VTE Deep Vein Thrombosis/Pulmonary Embolism Present on Admission: No
[2022-05-25] MEDS: clonazePAM 1 MG TABLET PO PRN ×2 (13:39→20:00)
[2022-05-25] MEDS: QUEtiapine 100 MG TABLET PO SCH (20:00)
[2022-05-25] MEDS: OLANZapine 5 MG TABLET PO PRN (20:00)
[2022-05-25] MEDS: Fluvoxamine 50 mg tablet PO SCH (20:06)
[2022-05-26] MEDS: LEVOTHYROXINE SODIUM 112 MCG TABLET PO SCH (07:16)
[2022-05-26] MEDS: LEVOTHYROXINE 25 MCG TABLET PO SCH (07:16)
[2022-05-26] MEDS: INSULIN LISPRO 1 UNIT/0.01 ML UNIT SQ SCH ×4 (07:19→20:23)
[2022-05-26] MEDS: LOSARTAN 50 MG TABLET PO SCH (08:29)
[2022-05-26] MEDS: lamoTRIgine 100 MG TABLET PO SCH (08:29)
[2022-05-26] MEDS: amLODIPine 5 MG TABLET PO SCH (08:29)
[2022-05-26] MEDS: DOCUSATE SODIUM 100 MG CAPSULE PO SCH ×2 (08:29→20:19)
[2022-05-26] MEDS: GABAPENTIN 300 MG CAPSULE PO SCH ×2 (08:30→20:19)
[2022-05-26] MEDS: ENOXAPARIN 40 MG/0.4 ML SYRINGE SQ SCH (08:30)
[2022-05-26] MEDS: ASPIRIN 81 MG TAB.CHEW PO SCH ×2 (08:30→20:19)
[2022-05-26] MEDS: NICOTINE 21 MG PATCH TOPICAL SCH (10:02)
--- NOTE | 2022-05-26 10:55 | Internal Med Progress Note ---
SUBJECTIVE Subjective Patient information: Note initiated : 05/26/22 at 10:55 am Service Date, if different from initiated Date: [] Patient: Cynthia Kirby 72 y/o F admitted on 05/09/22 for Dizzy. Chief Complaint: [] Principal diagnosis: Lightheadedness, dizziness, failure to thrive Interval history: The patient has no active complaints or concerns Constitutional Vitals: Vital Signs Temp Pulse Resp BP Pulse Ox O2 Del Method O2 Flow Rate 97.1 F 67 20 148/70 98 0 05/26/22 07:13 05/26/22 07:13 05/26/22 07:13 05/26/22 07:13 05/26/22 07:13 05/26/22 08:00 05/13/22 12:12 Period Temp Pulse Resp BP Sys/Norris Pulse Ox O2 Del Method O2 Flow Rate Last 24 Hr 97.1 F-98.5 F 67-85 16-20 111-148/70-88 96-99 Room Air-Room Air Intake and Output 05/25/22 05/26/22 05/26/22 21:59 05:59 13:59 Intake Total 1257 Output Total 350 Balance 907 Weight 84.55 kg Intake & Output: Intake & Output 05/25/22 05/26/22 05/26/22 21:59 05:59 13:59 Intake Total 1257 Output Total 350 Balance 907 Weight 84.55 kg Intake: Oral 1257 Output: Void Amount 350 Other: Meal Breakfast Percent of Meal Consumed 100% Feeding Ability Independent Urine Appearance Clear Urine Color Bright Yellow Urine Odor Normal # Voids 3 Head Head exam: Present atraumatic and normal inspection Eye Eye exam: Present normal appearance ENT ENT exam: Present mucous membranes moist, normal exam and normal external ear exam Neck Neck exam: Present normal inspection Respiratory Respiratory exam: Present normal respiratory exam Cardiovascular Cardiovascular exam: Present normal rate and rhythm GI/Abdominal GI/Abdominal exam: Present normal bowel sounds Back Exam Back exam: Present normal inspection Neurological Exam Neurological exam: Present alert and oriented X3 Skin Skin exam: Present intact and warm OBJ DATA Labs CBC & Chem 7: 05/09/22 20:42 05/12/22 05:44 Meds: Medications Acetaminophen (Acetaminophen 325 Mg Tablet) 650 mg PO Q6HP PRN; Protocol PRN Reason: Per Pain Protocol/Fever > 101 Last Admin: 05/23/22 07:24 Dose: 650 mg Albuterol/Ipratropium (Ipratropium/Albuterol 3 Ml Ampul.Neb) 3 ml NEB Q4HP PRN PRN Reason: Shortness Of Breath Amlodipine Besylate (Amlodipine 5 Mg Tablet) 5 mg PO DAILY [facility] Last Admin: 05/26/22 08:29 Dose: 5 mg Aspirin (Aspirin 81 Mg Tab.Chew) 81 mg PO BID [facility] Last Admin: 05/26/22 08:30 Dose: 81 mg Clonazepam (Clonazepam 1 Mg Tablet) 1 mg PO TIDP PRN PRN Reason: Agitation Last Admin: 05/25/22 20:00 Dose: 1 mg Dextrose (Dextrose 50% 50 Ml Vial) 0 ml IV UD PRN PRN Reason: Per Sliding Scale Diagnostic Test (Pha) (Accu-Chek 1 Each Strip) 1 each FS ACHS [facility] Last Admin: 05/26/22 07:16 Dose: 1 each Docusate Sodium (Docusate Sodium 100 Mg Capsule) 100 mg PO BID [facility] Last Admin: 05/26/22 08:29 Dose: 100 mg Enoxaparin Sodium (Enoxaparin 40 Mg/0.4 Ml Syringe) 40 mg SQ DAILY [facility] Last Admin: 05/26/22 08:30 Dose: 40 mg Gabapentin (Gabapentin 300 Mg Capsule) 300 mg PO BID [facility] Last Admin: 05/26/22 08:30 Dose: 300 mg Glucose (Dextrose 31 Gm Oral.Susp) 15 gm PO PRN PRN PRN Reason: Hypoglycemia Hydralazine HCl (Hydralazine 20 Mg/Ml Vial) 0 mg IV Q2HP PRN PRN Reason: Hypertension Hydralazine HCl (Hydralazine 10 Mg Tablet) 10 mg PO Q6HP PRN PRN Reason: SBP > 150 Last Admin: 05/21/22 19:03 Dose: 10 mg Hydroxyzine HCl (Hydroxyzine 25 Mg Tablet) 50 mg PO TIDP PRN PRN Reason: anxiety Last Admin: 05/25/22 20:00 Dose: 50 mg Potassium Chloride 40 meq/ (Dextrose) 520 mls @ 130 mls/hr IV UD PRN PRN Reason: Potassium < 3 Magnesium Sulfate (Magnesium Sulfate) 2 gm in 50 mls @ 50 mls/hr IV UD PRN PRN Reason: Magnesium </= 1.6 Insulin Human Lispro (Insulin Lispro 1 Unit/0.01 Ml Unit) 0 unit SQ ACHS [facility]; Protocol Last Admin: 05/26/22 07:19 Dose: Not Given Labetalol HCl (Labetalol 5 Mg/Ml Ml) 0 mg IV Q2HP PRN PRN Reason: Hypertension Lamotrigine (Lamotrigine 100 Mg Tablet) 100 mg PO DAILY [facility] Last Admin: 05/26/22 08:29 Dose: 100 mg Levothyroxine Sodium (Levothyroxine Sodium 112 Mcg Tablet) 112 mcg PO [facility] Last Admin: 05/26/22 07:16 Dose: 112 mcg Levothyroxine Sodium (Levothyroxine 25 Mcg Tablet) [facility] Last Admin: 05/26/22 07:16 Dose: 25 mcg Losartan Potassium (Losartan 50 Mg Tablet) 50 mg PO DAILY [facility] Last Admin: 05/26/22 08:29 Dose: 50 mg Magnesium Hydroxide (Magnesium Hydroxide 30 Ml Oral.Susp) 30 ml PO HSP PRN PRN Reason: Constipation Last Admin: 05/22/22 12:36 Dose: 30 ml Nicotine (Nicotine 21 Mg Patch) 21 mg TOPICAL DAILY@1000 [facility] Last Admin: 05/26/22 10:02 Dose: 21 mg Olanzapine (Olanzapine 5 Mg Tablet) 5 mg PO HSP PRN PRN Reason: aggitation Last Admin: 05/25/22 20:00 Dose: 5 mg Ondansetron HCl (Ondansetron 4 Mg/2 Ml Vial) 4 mg IV Q4HP PRN PRN Reason: Nausea And Vomiting Last Admin: 05/10/22 08:10 Dose: 4 mg Fluvoxamine 50 Mg (Tablet) 1 dose PO [facility] Last Admin: 05/25/22 20:06 Dose: Not Given Linaclotide [Linzess (] 290 Mcg Capsule) 1 dose PO QDAY [facility] Last Admin: 05/26/22 08:30 Dose: Not Given Polyethylene Glycol (Polyethylene Glycol 3350 17 Gm Packet) 17 gm PO DAILYP PRN PRN Reason: Constipation Last Admin: 05/20/22 07:37 Dose: 17 gm Polyethylene Glycol (Polyethylene Glycol 3350 17 Gm Packet) 17 gm PO DAILYP PRN PRN Reason: Constipation Potassium Chloride (Potassium Chloride 20 Meq Tablet) 40 meq PO UD PRN PRN Reason: Potssium is 3-3.5 Last Admin: 05/10/22 21:42 Dose: 40 meq Potassium Chloride (Potassium Chloride 20 Meq Tablet) 40 meq PO UD PRN PRN Reason: Potassium < 3 Quetiapine Fumarate (Quetiapine 100 Mg Tablet) 400 mg PO HS YG Last Admin: 05/25/22 20:00 Dose: 400 mg Senna (Sennosides 1 Tablet) 2 tab PO DAILYP PRN PRN Reason: Constipation Last Admin: 05/21/22 20:11 Dose: 2 tab A/P Assessment and plan (1) Psychogenic polydipsia: Status: Chronic (2) Hypertension, essential: Status: Chronic (3) Hypothyroidism (acquired): Status: Chronic (4) Diabetes mellitus type 2, controlled: Status: Chronic Qualifiers: Diabetes mellitus retirement insulin use: without retirement use Diabetes mellitus complication status: with unspecified complications Qualified Code(s): E11.8 - Type 2 diabetes mellitus with unspecified complications (5) Bipolar I disorder with depression: Status: Acute (6) Dementia: Status: Acute Narrative A/P Narrative: Assessment and Plans: 1. Psychogenic polydipsia: Resolved Inpatient med surg 1800cc/day fluid restriction Electrolytes already back to the baseline so there is no need to do daily labs Pending fci placement 2. Hypothyroidism: Continue thyroid replacement therapy 3. T2DM: HgA1c Hold oral hypoglycemics SSI AC HS Accu Chek AC HS Hypoglycemia protocol Diabetic diet Gabapentin 4. Dementia: Pending SNF placement 5. Bipolar depression with anxiety: Seroquel Zyprexa PRN agitation/psychosis Clonazepam PRN anxiety 6. Essential HTN: Losartan Amlodipine GI ppx: not indicated DVT ppx: Lovenox Code status: DNR Prognosis: stable Disposition: inpatient med surg; Pending SNF Time Spent With Patient Time: Total time spent is greater than 50% in coordination of care (as documented) at patient's floor/unit and/or counseling patient: Total time spent with greater than 50% in coordination of care (as documented) at patient's floor/unit and/or counseling patient:: 25 - 35 minutes QUALITY VTE Deep Vein Thrombosis/Pulmonary Embolism Present on Admission: No
[2022-05-26] MEDS: MAGNESIUM HYDROXIDE 30 ML ORAL.SUSP PO PRN (15:48)
[2022-05-26] MEDS: clonazePAM 1 MG TABLET PO PRN (15:55)
[2022-05-26] MEDS: Fluvoxamine 50 mg tablet PO SCH (20:15)
[2022-05-26] MEDS: QUEtiapine 100 MG TABLET PO SCH (20:19)
[2022-05-26] MEDS: hydrOXYzine 25 MG TABLET PO PRN (20:20)
[2022-05-27] MEDS: LEVOTHYROXINE 25 MCG TABLET PO SCH (07:06)
[2022-05-27] MEDS: LEVOTHYROXINE SODIUM 112 MCG TABLET PO SCH (07:06)
[2022-05-27] MEDS: INSULIN LISPRO 1 UNIT/0.01 ML UNIT SQ SCH ×4 (07:10→20:49)
[2022-05-27] MEDS: ENOXAPARIN 40 MG/0.4 ML SYRINGE SQ SCH (08:48)
[2022-05-27] MEDS: NICOTINE 21 MG PATCH TOPICAL SCH (08:49)
[2022-05-27] MEDS: GABAPENTIN 300 MG CAPSULE PO SCH ×2 (08:49→20:48)
[2022-05-27] MEDS: clonazePAM 1 MG TABLET PO PRN ×3 (08:49→21:25)
[2022-05-27] MEDS: LOSARTAN 50 MG TABLET PO SCH (08:49)
[2022-05-27] MEDS: DOCUSATE SODIUM 100 MG CAPSULE PO SCH ×2 (08:49→20:48)
[2022-05-27] MEDS: ASPIRIN 81 MG TAB.CHEW PO SCH ×2 (08:49→20:48)
[2022-05-27] MEDS: amLODIPine 5 MG TABLET PO SCH (08:49)
[2022-05-27] MEDS: hydrOXYzine 25 MG TABLET PO PRN ×3 (08:49→20:48)
[2022-05-27] MEDS: lamoTRIgine 100 MG TABLET PO SCH (08:50)
--- NOTE | 2022-05-27 11:54 | Internal Med Progress Note ---
SUBJECTIVE Subjective Patient information: Note initiated : 05/27/22 at 11:53 am Service Date, if different from initiated Date: [] Patient: Cynthia Kirby 72 y/o F admitted on 05/09/22 for Dizzy. Chief Complaint: [] Principal diagnosis: Lightheadedness, dizziness, failure to thrive Interval history: No active complaints or concerns today Constitutional Vitals: Vital Signs Temp Pulse Resp BP Pulse Ox O2 Del Method O2 Flow Rate 97.7 F 85 20 149/95 97 0 05/27/22 08:00 05/27/22 08:00 05/27/22 08:00 05/27/22 08:00 05/27/22 08:00 05/27/22 08:00 05/13/22 12:12 Period Temp Pulse Resp BP Sys/Norris Pulse Ox O2 Del Method O2 Flow Rate Last 24 Hr 96.9 F-98.1 F 70-85 16-22 115-149/68-95 94-97 Room Air-Room Air Intake and Output 05/26/22 05/27/22 05/27/22 21:59 05:59 13:59 Intake Total 360 480 Output Total 1200 425 Balance -840 55 Weight 84.368 kg Intake & Output: Intake & Output 05/26/22 05/27/22 05/27/22 21:59 05:59 13:59 Intake Total 360 480 Output Total 1200 425 Balance -840 55 Weight 84.368 kg Intake: Oral 360 480 Output: Void Amount 1200 425 Other: Meal Breakfast Percent of Meal Consumed 100% Feeding Ability Independent Urine Appearance Clear Clear Urine Color Bright Yellow Yellow Urine Odor Normal Head Head exam: Present atraumatic and normal inspection Eye Eye exam: Present normal appearance ENT ENT exam: Present mucous membranes moist, normal exam and normal external ear exam Neck Neck exam: Present normal inspection Respiratory Respiratory exam: Present normal respiratory exam Cardiovascular Cardiovascular exam: Present normal rate and rhythm GI/Abdominal GI/Abdominal exam: Present normal bowel sounds Back Exam Back exam: Present normal inspection Neurological Exam Neurological exam: Present alert and oriented X3 Skin Skin exam: Present intact and warm OBJ DATA Labs CBC & Chem 7: 05/09/22 20:42 05/12/22 05:44 Meds: Medications Acetaminophen (Acetaminophen 325 Mg Tablet) 650 mg PO Q6HP PRN; Protocol PRN Reason: Per Pain Protocol/Fever > 101 Last Admin: 05/23/22 07:24 Dose: 650 mg Albuterol/Ipratropium (Ipratropium/Albuterol 3 Ml Ampul.Neb) 3 ml NEB Q4HP PRN PRN Reason: Shortness Of Breath Amlodipine Besylate (Amlodipine 5 Mg Tablet) 5 mg PO DAILY [facility] Last Admin: 05/27/22 08:49 Dose: 5 mg Aspirin (Aspirin 81 Mg Tab.Chew) 81 mg PO BID [facility] Last Admin: 05/27/22 08:49 Dose: 81 mg Clonazepam (Clonazepam 1 Mg Tablet) 1 mg PO TIDP PRN PRN Reason: Agitation Last Admin: 05/27/22 08:49 Dose: 1 mg Dextrose (Dextrose 50% 50 Ml Vial) 0 ml IV UD PRN PRN Reason: Per Sliding Scale Diagnostic Test (Pha) (Accu-Chek 1 Each Strip) 1 each FS ACHS [facility] Last Admin: 05/27/22 11:21 Dose: 1 each Docusate Sodium (Docusate Sodium 100 Mg Capsule) 100 mg PO BID [facility] Last Admin: 05/27/22 08:49 Dose: 100 mg Enoxaparin Sodium (Enoxaparin 40 Mg/0.4 Ml Syringe) 40 mg SQ DAILY [facility] Last Admin: 05/27/22 08:48 Dose: 40 mg Gabapentin (Gabapentin 300 Mg Capsule) 300 mg PO BID [facility] Last Admin: 05/27/22 08:49 Dose: 300 mg Glucose (Dextrose 31 Gm Oral.Susp) 15 gm PO PRN PRN PRN Reason: Hypoglycemia Hydralazine HCl (Hydralazine 20 Mg/Ml Vial) 0 mg IV Q2HP PRN PRN Reason: Hypertension Hydralazine HCl (Hydralazine 10 Mg Tablet) 10 mg PO Q6HP PRN PRN Reason: SBP > 150 Last Admin: 05/21/22 19:03 Dose: 10 mg Hydroxyzine HCl (Hydroxyzine 25 Mg Tablet) 50 mg PO TIDP PRN PRN Reason: anxiety Last Admin: 05/27/22 08:49 Dose: 50 mg Potassium Chloride 40 meq/ (Dextrose) 520 mls @ 130 mls/hr IV UD PRN PRN Reason: Potassium < 3 Magnesium Sulfate (Magnesium Sulfate) 2 gm in 50 mls @ 50 mls/hr IV UD PRN PRN Reason: Magnesium </= 1.6 Insulin Human Lispro (Insulin Lispro 1 Unit/0.01 Ml Unit) 0 unit SQ ACHS [facility]; Protocol Last Admin: 05/27/22 11:21 Dose: Not Given Labetalol HCl (Labetalol 5 Mg/Ml Ml) 0 mg IV Q2HP PRN PRN Reason: Hypertension Lamotrigine (Lamotrigine 100 Mg Tablet) 100 mg PO DAILY [facility] Last Admin: 05/27/22 08:50 Dose: 100 mg Levothyroxine Sodium (Levothyroxine Sodium 112 Mcg Tablet) [facility] Last Admin: 05/27/22 07:06 Dose: 112 mcg Levothyroxine Sodium (Levothyroxine 25 Mcg Tablet) [facility] Last Admin: 05/27/22 07:06 Dose: 25 mcg Losartan Potassium (Losartan 50 Mg Tablet) 50 mg PO DAILY [facility] Last Admin: 05/27/22 08:49 Dose: 50 mg Magnesium Hydroxide (Magnesium Hydroxide 30 Ml Oral.Susp) 30 ml PO HSP PRN PRN Reason: Constipation Last Admin: 05/26/22 15:48 Dose: 30 ml Nicotine (Nicotine 21 Mg Patch) 21 mg TOPICAL DAILY@1000 [facility] Last Admin: 05/27/22 08:49 Dose: 21 mg Olanzapine (Olanzapine 5 Mg Tablet) 5 mg PO HSP PRN PRN Reason: aggitation Last Admin: 05/25/22 20:00 Dose: 5 mg Ondansetron HCl (Ondansetron 4 Mg/2 Ml Vial) 4 mg IV Q4HP PRN PRN Reason: Nausea And Vomiting Last Admin: 05/10/22 08:10 Dose: 4 mg Fluvoxamine 50 Mg (Tablet) 1 dose PO [facility] Last Admin: 05/26/22 20:15 Dose: Not Given Linaclotide [Linzess (] 290 Mcg Capsule) 1 dose PO QDAY [facility] Last Admin: 05/27/22 08:34 Dose: Not Given Polyethylene Glycol (Polyethylene Glycol 3350 17 Gm Packet) 17 gm PO DAILYP PRN PRN Reason: Constipation Last Admin: 05/20/22 07:37 Dose: 17 gm Polyethylene Glycol (Polyethylene Glycol 3350 17 Gm Packet) 17 gm PO DAILYP PRN PRN Reason: Constipation Potassium Chloride (Potassium Chloride 20 Meq Tablet) 40 meq PO UD PRN PRN Reason: Potssium is 3-3.5 Last Admin: 05/10/22 21:42 Dose: 40 meq Potassium Chloride (Potassium Chloride 20 Meq Tablet) 40 meq PO UD PRN PRN Reason: Potassium < 3 Quetiapine Fumarate (Quetiapine 100 Mg Tablet) 400 mg PO HS YG Last Admin: 05/26/22 20:19 Dose: 400 mg Senna (Sennosides 1 Tablet) 2 tab PO DAILYP PRN PRN Reason: Constipation Last Admin: 05/21/22 20:11 Dose: 2 tab A/P Assessment and plan (1) Psychogenic polydipsia: Status: Chronic (2) Hypertension, essential: Status: Chronic (3) Hypothyroidism (acquired): Status: Chronic (4) Diabetes mellitus type 2, controlled: Status: Chronic Qualifiers: Diabetes mellitus director trust insulin use: without snf use Diabetes mellitus complication status: with unspecified complications Qualified Code(s): E11.8 - Type 2 diabetes mellitus with unspecified complications (5) Bipolar I disorder with depression: Status: Acute (6) Dementia: Status: Acute Narrative A/P Narrative: Assessment and Plans: 1. Psychogenic polydipsia: Resolved Inpatient med surg 1800cc/day fluid restriction Electrolytes already back to the baseline so there is no need to do daily labs Pending longterm placement 2. Hypothyroidism: Continue thyroid replacement therapy 3. T2DM: HgA1c Hold oral hypoglycemics SSI AC HS Accu Chek AC HS Hypoglycemia protocol Diabetic diet Gabapentin 4. Dementia: Pending SNF placement 5. Bipolar depression with anxiety: Seroquel Zyprexa PRN agitation/psychosis Clonazepam PRN anxiety 6. Essential HTN: Losartan Amlodipine GI ppx: not indicated DVT ppx: Lovenox Code status: DNR Prognosis: stable Disposition: inpatient med surg; Pending SNF Time Spent With Patient Time: Total time spent is greater than 50% in coordination of care (as documented) at patient's floor/unit and/or counseling patient: Total time spent with greater than 50% in coordination of care (as documented) at patient's floor/unit and/or counseling patient:: 25 - 35 minutes QUALITY VTE Deep Vein Thrombosis/Pulmonary Embolism Present on Admission: No
[2022-05-27] MEDS: QUEtiapine 100 MG TABLET PO SCH (20:48)
[2022-05-27] MEDS: ACETAMINOPHEN 325 MG TABLET PO PRN (20:48)
[2022-05-27] MEDS: Fluvoxamine 50 mg tablet PO SCH (20:49)
[2022-05-28] MEDS: LEVOTHYROXINE 25 MCG TABLET PO SCH (06:59)
[2022-05-28] MEDS: clonazePAM 1 MG TABLET PO PRN ×3 (06:59→18:35)
[2022-05-28] MEDS: hydrOXYzine 25 MG TABLET PO PRN ×2 (06:59→18:35)
[2022-05-28] MEDS: LEVOTHYROXINE SODIUM 112 MCG TABLET PO SCH (06:59)
[2022-05-28] MEDS: INSULIN LISPRO 1 UNIT/0.01 ML UNIT SQ SCH ×4 (07:03→21:44)
[2022-05-28] MEDS: LOSARTAN 50 MG TABLET PO SCH (09:07)
[2022-05-28] MEDS: ENOXAPARIN 40 MG/0.4 ML SYRINGE SQ SCH (09:07)
[2022-05-28] MEDS: lamoTRIgine 100 MG TABLET PO SCH (09:07)
[2022-05-28] MEDS: DOCUSATE SODIUM 100 MG CAPSULE PO SCH ×3 (09:07→21:43)
[2022-05-28] MEDS: ASPIRIN 81 MG TAB.CHEW PO SCH ×2 (09:08→21:43)
[2022-05-28] MEDS: amLODIPine 5 MG TABLET PO SCH (09:08)
[2022-05-28] MEDS: GABAPENTIN 300 MG CAPSULE PO SCH ×2 (09:08→21:43)
[2022-05-28] MEDS: NICOTINE 21 MG PATCH TOPICAL SCH (10:43)
--- NOTE | 2022-05-28 10:55 | Internal Med Progress Note ---
SUBJECTIVE Subjective Patient information: Note initiated : 05/28/22 at 10:53 am Service Date, if different from initiated Date: [] Patient: Cynthia Kirby 72 y/o F admitted on 05/09/22 for Dizzy. Chief Complaint: [] Principal diagnosis: Lightheadedness, dizziness, failure to thrive Interval history: The patient has no active complaints or concerns. We had discharge meeting today and are still waiting for placement. Constitutional Vitals: Vital Signs Temp Pulse Resp BP Pulse Ox O2 Del Method O2 Flow Rate 97.0 F 82 20 155/97 98 0 05/28/22 08:00 05/28/22 08:00 05/28/22 08:00 05/28/22 08:00 05/28/22 08:00 05/28/22 08:00 05/13/22 12:12 Period Temp Pulse Resp BP Sys/Norris Pulse Ox O2 Del Method O2 Flow Rate Last 24 Hr 96.7 F-98.5 F 61-82 16-20 100-155/61-97 94-98 Room Air-Room Air Intake and Output 05/27/22 05/28/22 05/28/22 21:59 05:59 13:59 Intake Total 240 360 357 Output Total 700 475 950 Balance -460 -115 -593 Weight 86.682 kg Intake & Output: Intake & Output 05/27/22 05/28/22 05/28/22 21:59 05:59 13:59 Intake Total 240 360 357 Output Total 700 475 950 Balance -460 -115 -593 Weight 86.682 kg Intake: Oral 240 360 357 Output: Void Amount 700 475 950 # of times incontinent of urine 0 Other: Meal Dinner SHERBET Percent of Meal Consumed 100% 100% Feeding Ability Independent Urine Appearance Clear Cloudy Urine Color Bright Yellow Yellow Straw Urine Odor Normal Normal # Voids 0 Head Head exam: Present atraumatic and normal inspection Eye Eye exam: Present normal appearance ENT ENT exam: Present mucous membranes moist, normal exam and normal external ear exam Neck Neck exam: Present normal inspection Respiratory Respiratory exam: Present normal respiratory exam Cardiovascular Cardiovascular exam: Present normal rate and rhythm GI/Abdominal GI/Abdominal exam: Present normal bowel sounds Back Exam Back exam: Present normal inspection Neurological Exam Neurological exam: Present alert and oriented X3 Skin Skin exam: Present intact and warm OBJ DATA Labs CBC & Chem 7: 05/09/22 20:42 05/12/22 05:44 Meds: Medications Acetaminophen (Acetaminophen 325 Mg Tablet) 650 mg PO Q6HP PRN; Protocol PRN Reason: Per Pain Protocol/Fever > 101 Last Admin: 05/27/22 20:48 Dose: 650 mg Albuterol/Ipratropium (Ipratropium/Albuterol 3 Ml Ampul.Neb) 3 ml NEB Q4HP PRN PRN Reason: Shortness Of Breath Amlodipine Besylate (Amlodipine 5 Mg Tablet) 5 mg PO DAILY [facility] Last Admin: 05/28/22 09:08 Dose: 5 mg Aspirin (Aspirin 81 Mg Tab.Chew) 81 mg PO BID [facility] Last Admin: 05/28/22 09:08 Dose: 81 mg Clonazepam (Clonazepam 1 Mg Tablet) 1 mg PO TIDP PRN PRN Reason: Agitation Last Admin: 05/28/22 06:59 Dose: 1 mg Dextrose (Dextrose 50% 50 Ml Vial) 0 ml IV UD PRN PRN Reason: Per Sliding Scale Diagnostic Test (Pha) (Accu-Chek 1 Each Strip) 1 each FS ACHS [facility] Last Admin: 05/28/22 07:00 Dose: 1 each Docusate Sodium (Docusate Sodium 100 Mg Capsule) 100 mg PO BID [facility] Last Admin: 05/28/22 09:30 Dose: Not Given Enoxaparin Sodium (Enoxaparin 40 Mg/0.4 Ml Syringe) 40 mg SQ DAILY [facility] Last Admin: 05/28/22 09:07 Dose: 40 mg Gabapentin (Gabapentin 300 Mg Capsule) 300 mg PO BID [facility] Last Admin: 05/28/22 09:08 Dose: 300 mg Glucose (Dextrose 31 Gm Oral.Susp) 15 gm PO PRN PRN PRN Reason: Hypoglycemia Hydralazine HCl (Hydralazine 20 Mg/Ml Vial) 0 mg IV Q2HP PRN PRN Reason: Hypertension Hydralazine HCl (Hydralazine 10 Mg Tablet) 10 mg PO Q6HP PRN PRN Reason: SBP > 150 Last Admin: 05/21/22 19:03 Dose: 10 mg Hydroxyzine HCl (Hydroxyzine 25 Mg Tablet) 50 mg PO TIDP PRN PRN Reason: anxiety Last Admin: 05/28/22 06:59 Dose: 50 mg Potassium Chloride 40 meq/ (Dextrose) 520 mls @ 130 mls/hr IV UD PRN PRN Reason: Potassium < 3 Magnesium Sulfate (Magnesium Sulfate) 2 gm in 50 mls @ 50 mls/hr IV UD PRN PRN Reason: Magnesium </= 1.6 Insulin Human Lispro (Insulin Lispro 1 Unit/0.01 Ml Unit) 0 unit SQ ACHS [facility]; Protocol Last Admin: 05/28/22 07:03 Dose: Not Given Labetalol HCl (Labetalol 5 Mg/Ml Ml) 0 mg IV Q2HP PRN PRN Reason: Hypertension Lamotrigine (Lamotrigine 100 Mg Tablet) 100 mg PO DAILY [facility] Last Admin: 05/28/22 09:07 Dose: 100 mg Levothyroxine Sodium (Levothyroxine Sodium 112 Mcg Tablet) 112 mcg PO QACOX [facility] Last Admin: 05/28/22 06:59 Dose: 112 mcg Levothyroxine Sodium (Levothyroxine 25 Mcg Tablet) 25 mcg PO QAMAC [facility] Last Admin: 05/28/22 06:59 Dose: 25 mcg Losartan Potassium (Losartan 50 Mg Tablet) 50 mg PO DAILY [facility] Last Admin: 05/28/22 09:07 Dose: 50 mg Magnesium Hydroxide (Magnesium Hydroxide 30 Ml Oral.Susp) 30 ml PO HSP PRN PRN Reason: Constipation Last Admin: 05/26/22 15:48 Dose: 30 ml Nicotine (Nicotine 21 Mg Patch) 21 mg TOPICAL DAILY@1000 [facility] Last Admin: 05/28/22 10:43 Dose: 21 mg Olanzapine (Olanzapine 5 Mg Tablet) 5 mg PO HSP PRN PRN Reason: aggitation Last Admin: 05/25/22 20:00 Dose: 5 mg Ondansetron HCl (Ondansetron 4 Mg/2 Ml Vial) 4 mg IV Q4HP PRN PRN Reason: Nausea And Vomiting Last Admin: 05/10/22 08:10 Dose: 4 mg Fluvoxamine 50 Mg (Tablet) 1 dose PO HS [facility] Last Admin: 05/27/22 20:49 Dose: Not Given Linaclotide [Linzess (] 290 Mcg Capsule) 1 dose PO QDAY [facility] Last Admin: 05/28/22 09:08 Dose: Not Given Polyethylene Glycol (Polyethylene Glycol 3350 17 Gm Packet) 17 gm PO DAILYP PRN PRN Reason: Constipation Last Admin: 05/20/22 07:37 Dose: 17 gm Polyethylene Glycol (Polyethylene Glycol 3350 17 Gm Packet) 17 gm PO DAILYP PRN PRN Reason: Constipation Potassium Chloride (Potassium Chloride 20 Meq Tablet) 40 meq PO UD PRN PRN Reason: Potssium is 3-3.5 Last Admin: 05/10/22 21:42 Dose: 40 meq Potassium Chloride (Potassium Chloride 20 Meq Tablet) 40 meq PO UD PRN PRN Reason: Potassium < 3 Quetiapine Fumarate (Quetiapine 100 Mg Tablet) 400 mg PO HS YG Last Admin: 05/27/22 20:48 Dose: 400 mg Senna (Sennosides 1 Tablet) 2 tab PO DAILYP PRN PRN Reason: Constipation Last Admin: 05/21/22 20:11 Dose: 2 tab A/P Assessment and plan (1) Psychogenic polydipsia: Status: Chronic (2) Hypertension, essential: Status: Chronic (3) Hypothyroidism (acquired): Status: Chronic (4) Diabetes mellitus type 2, controlled: Status: Chronic Qualifiers: Diabetes mellitus terminal carman insulin use: without terminal carman use Diabetes mellitus complication status: with unspecified complications Qualified Code(s): E11.8 - Type 2 diabetes mellitus with unspecified complications (5) Bipolar I disorder with depression: Status: Acute (6) Dementia: Status: Acute Narrative A/P Narrative: Assessment and Plans: 1. Psychogenic polydipsia: Resolved Inpatient med surg 1800cc/day fluid restriction Electrolytes already back to the baseline so there is no need to do daily labs Pending [facility] placement 2. Hypothyroidism: Continue thyroid replacement therapy 3. T2DM: HgA1c Hold oral hypoglycemics SSI AC HS Accu Chek AC HS Hypoglycemia protocol Diabetic diet Gabapentin 4. Dementia: Pending SNF placement 5. Bipolar depression with anxiety: Seroquel Zyprexa PRN agitation/psychosis Clonazepam PRN anxiety 6. Essential HTN: Losartan Amlodipine GI ppx: not indicated DVT ppx: Lovenox Code status: DNR Prognosis: stable Disposition: inpatient med surg; Pending SNF Time Spent With Patient Time: Total time spent is greater than 50% in coordination of care (as documented) at patient's floor/unit and/or counseling patient: Total time spent with greater than 50% in coordination of care (as documented) at patient's floor/unit and/or counseling patient:: 25 - 35 minutes QUALITY VTE Deep Vein Thrombosis/Pulmonary Embolism Present on Admission: No
--- NOTE | 2022-05-28 13:12 | Internal Med Progress Note ---
SUBJECTIVE Subjective Patient information: Note initiated : 05/28/22 at 1:08 pm Service Date, if different from initiated Date: [] Patient: Cynthia Kirby a 72 y/o F admitted on 05/09/22 for Dizzy. Chief Complaint: [] Principal diagnosis: Lightheadedness, dizziness, failure to thrive Interval history: History of present illness: Ms. Kirby is a 72 year old F Presents ED with dizziness and lightheadedness. Patient felt like she was going to pass out. Denies any headache fever chills nausea or vomiting. Denies any chest pain or shortness of breath. She was found to have sodium of 120, she is chronically low but this is lower than her usual. 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 Patient has recent guardianship and that person has been trying to place the patient in a shelter facility it sounds like she will go to [place] next week. 05/10 Patient had an episode of nausea vomiting after eating breakfast this morning. She says she typically does not eat that much. She has some occasional dizziness lightheadedness. Sodium elevated today faster than expected. We will provide some DDAVP and some hypotonic's fluid. 05/11 Patient feeling little better today. Denies dizziness or lightheadedness. Fluid restrict monitoring sodium closely. Phosphorus low and will replete. Metabolic acidosis. 05/12 Slept better. Feeling little better. Sodium improved as well as acid-base balance. Continue 1800 cc fluid restrict. Case management placement likely tomorrow. 05/13 No overnight event or new complaints. Continue fluid restrict. Awaiting placement. 05/14: No major overnight event. Both sodium and potassium level normalized. We will continue 1800 cc/day fluid restrictions, while awaiting detention placement. 05/15: No major overnight events. No checking daily labs anymore. We will continue 1800 cc/day fluid restrictions, while awaiting detention placement. 05/16: No major overnight events. No checking daily labs anymore. We will continue 1800 cc/day fluid restrictions, while awaiting detention placement. 05/17: No major overnight events. No checking daily labs anymore. We will continue 1800 cc/day fluid restrictions, while awaiting detention placement. 05/18: No major overnight events. No checking daily labs anymore. We will continue 1800 cc/day fluid restrictions, while awaiting detention placement. 05/19: No major overnight events. No checking daily labs anymore. We will continue 1800 cc/day fluid restrictions, while awaiting detention placement. 05/20: No major overnight events. No checking daily labs anymore. We will continue 1800 cc/day fluid restrictions, while awaiting detention placement. 05/21: I have taken over the care of this patient and she is medically status quo. We will continue to look for placement. 05/22: The patient was resting comfortably in bed. She has no active complaints or concerns 05/24 The patient was resting comfortably in bed. She was calm and cooperative this morning. She usually tells the same story each morning. 05/25 The patient is resting in bed. She has no active complaints or concerns 05/28 The patient has no active complaints or concerns. We had discharge meeting today and are still waiting for placement. 05/29 Review of Systems: denies headache/fever/chills/chest or abdominal pain/cough/dyspnea/diarrhea. Otherwise see above. Constitutional Vitals: Vital Signs Temp Pulse Resp BP Pulse Ox O2 Del Method O2 Flow Rate 98.5 F 81 20 135/87 95 0 05/28/22 12:00 05/28/22 12:00 05/28/22 12:00 05/28/22 12:00 05/28/22 12:00 05/28/22 12:00 05/13/22 12:12 Period Temp Pulse Resp BP Sys/Norris Pulse Ox O2 Del Method O2 Flow Rate Last 24 Hr 96.7 F-98.5 F 61-82 16-20 100-155/61-97 94-98 Room Air-Room Air Intake and Output 05/27/22 05/28/22 05/28/22 21:59 05:59 13:59 Intake Total 240 360 357 Output Total 700 475 950 Balance -460 115 593 Weight 86.682 kg Intake & Output: Intake & Output 05/27/22 05/28/22 05/28/22 21:59 05:59 13:59 Intake Total 240 360 357 Output Total 700 475 950 Balance -460 115 -593 Weight 86.682 kg Intake: Oral 240 360 357 Output: Void Amount 700 475 950 # of times incontinent of urine 0 Other: Meal Dinner SHERBET Percent of Meal Consumed 100% 100% Feeding Ability Independent Urine Appearance Clear Cloudy Urine Color Bright Yellow Yellow Straw Urine Odor Normal Normal # Voids 0 Exam: General: Alert, Awake, No acute Distress, obese Eyes/N/T: EOMI,, Head/Neck: neck supple, CV: RRR, No murmurs, Pulm: Clear b/l, no wheezing/rhonchi/rales Abd: soft, nontender, +BS x4 Ext: no clubbing/cyanosis/edema Neuro: Alert, no focal deficits, moves all extremities, Skin: warm/dry OBJ DATA Labs CBC & Chem 7: 05/09/22 20:42 05/12/22 05:44 Meds: Medications Acetaminophen (Acetaminophen 325 Mg Tablet) 650 mg PO Q6HP PRN; Protocol PRN Reason: Per Pain Protocol/Fever > 101 Last Admin: 05/27/22 20:48 Dose: 650 mg Albuterol/Ipratropium (Ipratropium/Albuterol 3 Ml Ampul.Neb) 3 ml NEB Q4HP PRN PRN Reason: Shortness Of Breath Amlodipine Besylate (Amlodipine 5 Mg Tablet) 5 mg PO DAILY [facility] Last Admin: 05/28/22 09:08 Dose: 5 mg Aspirin (Aspirin 81 Mg Tab.Chew) 81 mg PO BID [facility] Last Admin: 05/28/22 09:08 Dose: 81 mg Clonazepam (Clonazepam 1 Mg Tablet) 1 mg PO TIDP PRN PRN Reason: Agitation Last Admin: 05/28/22 06:59 Dose: 1 mg Dextrose (Dextrose 50% 50 Ml Vial) 0 ml IV UD PRN PRN Reason: Per Sliding Scale Diagnostic Test (Pha) (Accu-Chek 1 Each Strip) 1 each FS ACHS [facility] Last Admin: 05/28/22 10:55 Dose: 1 each Docusate Sodium (Docusate Sodium 100 Mg Capsule) 100 mg PO BID [facility] Last Admin: 05/28/22 09:30 Dose: Not Given Enoxaparin Sodium (Enoxaparin 40 Mg/0.4 Ml Syringe) 40 mg SQ DAILY [facility] Last Admin: 05/28/22 09:07 Dose: 40 mg Gabapentin (Gabapentin 300 Mg Capsule) 300 mg PO BID [facility] Last Admin: 05/28/22 09:08 Dose: 300 mg Glucose (Dextrose 31 Gm Oral.Susp) 15 gm PO PRN PRN PRN Reason: Hypoglycemia Hydralazine HCl (Hydralazine 20 Mg/Ml Vial) 0 mg IV Q2HP PRN PRN Reason: Hypertension Hydralazine HCl (Hydralazine 10 Mg Tablet) 10 mg PO Q6HP PRN PRN Reason: SBP > 150 Last Admin: 05/21/22 19:03 Dose: 10 mg Hydroxyzine HCl (Hydroxyzine 25 Mg Tablet) 50 mg PO TIDP PRN PRN Reason: anxiety Last Admin: 05/28/22 06:59 Dose: 50 mg Potassium Chloride 40 meq/ (Dextrose) 520 mls @ 130 mls/hr IV UD PRN PRN Reason: Potassium < 3 Magnesium Sulfate (Magnesium Sulfate) 2 gm in 50 mls @ 50 mls/hr IV UD PRN PRN Reason: Magnesium </= 1.6 Insulin Human Lispro (Insulin Lispro 1 Unit/0.01 Ml Unit) 0 unit SQ ACHS [facility]; Protocol Last Admin: 05/28/22 10:55 Dose: Not Given Labetalol HCl (Labetalol 5 Mg/Ml Ml) 0 mg IV Q2HP PRN PRN Reason: Hypertension Lamotrigine (Lamotrigine 100 Mg Tablet) 100 mg PO DAILY [facility] Last Admin: 05/28/22 09:07 Dose: 100 mg Levothyroxine Sodium (Levothyroxine Sodium 112 Mcg Tablet) 112 mcg PO QAMAC [facility] Last Admin: 05/28/22 06:59 Dose: 112 mcg Levothyroxine Sodium (Levothyroxine 25 Mcg Tablet) 25 mcg PO QAMAC [facility] Last Admin: 05/28/22 06:59 Dose: 25 mcg Losartan Potassium (Losartan 50 Mg Tablet) 50 mg PO DAILY [facility] Last Admin: 05/28/22 09:07 Dose: 50 mg Magnesium Hydroxide (Magnesium Hydroxide 30 Ml Oral.Susp) 30 ml PO HSP PRN PRN Reason: Constipation Last Admin: 05/26/22 15:48 Dose: 30 ml Nicotine (Nicotine 21 Mg Patch) 21 mg TOPICAL DAILY@1000 YG Last Admin: 05/28/22 10:43 Dose: 21 mg Olanzapine (Olanzapine 5 Mg Tablet) 5 mg PO HSP PRN PRN Reason: aggitation Last Admin: 05/25/22 20:00 Dose: 5 mg Ondansetron HCl (Ondansetron 4 Mg/2 Ml Vial) 4 mg IV Q4HP PRN PRN Reason: Nausea And Vomiting Last Admin: 05/10/22 08:10 Dose: 4 mg Fluvoxamine 50 Mg (Tablet) 1 dose PO [facility] Last Admin: 05/27/22 20:49 Dose: Not Given Linaclotide [Linzess (] 290 Mcg Capsule) 1 dose PO QDAY [facility] Last Admin: 05/28/22 09:08 Dose: Not Given Polyethylene Glycol (Polyethylene Glycol 3350 17 Gm Packet) 17 gm PO DAILYP PRN PRN Reason: Constipation Last Admin: 05/20/22 07:37 Dose: 17 gm Polyethylene Glycol (Polyethylene Glycol 3350 17 Gm Packet) 17 gm PO DAILYP PRN PRN Reason: Constipation Potassium Chloride (Potassium Chloride 20 Meq Tablet) 40 meq PO UD PRN PRN Reason: Potssium is 3-3.5 Last Admin: 05/10/22 21:42 Dose: 40 meq Potassium Chloride (Potassium Chloride 20 Meq Tablet) 40 meq PO UD PRN PRN Reason: Potassium < 3 Quetiapine Fumarate (Quetiapine 100 Mg Tablet) 400 mg PO [facility] Last Admin: 05/27/22 20:48 Dose: 400 mg Senna (Sennosides 1 Tablet) 2 tab PO DAILYP PRN PRN Reason: Constipation Last Admin: 05/21/22 20:11 Dose: 2 tab A/P Narrative A/P Narrative: A: *Acute on chronic hyponatremia: 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 resolved *polcypharmacy: *HTN Urgency: Elevated blood pressure in the ED. improved, then became low normal suspect home polypharmacy *Hypophosphatemia: *Dementia with h/o behavioral disturbances: *Anxiety/bipolar disorder: *Metabolic acidosis: question if she is taking Diamox at home. improved *DM: A1c 6.4 *Hypothyroidism: tsh wnl *Tobacco abuse: *Obesity: BMI 33 *Inability to care for self: In the process of getting placement to a SNF P: -fluid restrict 1800cc/day -monitor sodium and replete phosphorus -Continue psych meds -cont norvasc/losartan -cont ASA/Statin -SSI, hold metformin for now -Smoking cessation counseling -PT/OT -CM for placement -ppx: Lovenox Time Spent With Patient Time: Total time spent is greater than 50% in coordination of care (as documented) at patient's floor/unit and/or counseling patient: QUALITY VTE Deep Vein Thrombosis/Pulmonary Embolism Present on Admission: No
[2022-05-28] MEDS: MAGNESIUM HYDROXIDE 30 ML ORAL.SUSP PO PRN (16:14)
[2022-05-28] MEDS: ACETAMINOPHEN 325 MG TABLET PO PRN (18:34)
[2022-05-28] MEDS: OLANZapine 5 MG TABLET PO PRN (18:35)
[2022-05-28] MEDS: POLYETHYLENE GLYCOL 3350 17 GM PACKET PO PRN (21:42)
[2022-05-28] MEDS: QUEtiapine 100 MG TABLET PO SCH (21:43)
[2022-05-28] MEDS: Fluvoxamine 50 mg tablet PO SCH (21:44)
[2022-05-29] MEDS: LEVOTHYROXINE SODIUM 112 MCG TABLET PO SCH (07:43)
[2022-05-29] MEDS: LEVOTHYROXINE 25 MCG TABLET PO SCH (07:44)
[2022-05-29] MEDS: clonazePAM 1 MG TABLET PO PRN ×3 (07:44→19:45)
[2022-05-29] MEDS: INSULIN LISPRO 1 UNIT/0.01 ML UNIT SQ SCH ×2 (07:46→11:40)
--- NOTE | 2022-05-29 08:06 | Internal Med Progress Note ---
SUBJECTIVE Subjective Patient information: Note initiated : 05/29/22 at 8:04 am Service Date, if different from initiated Date: [] Patient: Cynthia Kirby a 72 y/o F admitted on 05/09/22 for Dizzy. Chief Complaint: [] Principal diagnosis: Lightheadedness, dizziness, failure to thrive Interval history: History of present illness: Ms. Kirby is a 72 year old F Presents ED with dizziness and lightheadedness. Patient felt like she was going to pass out. Denies any headache fever chills nausea or vomiting. Denies any chest pain or shortness of breath. She was found to have sodium of 120, she is chronically low but this is lower than her usual. 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 Patient has recent guardianship and that person has been trying to place the patient in a longterm facility it sounds like she will go to [place] next week. 05/10 Patient had an episode of nausea vomiting after eating breakfast this morning. She says she typically does not eat that much. She has some occasional dizziness lightheadedness. Sodium elevated today faster than expected. We will provide some DDAVP and some hypotonic's fluid. 05/11 Patient feeling little better today. Denies dizziness or lightheadedness. Fluid restrict monitoring sodium closely. Phosphorus low and will replete. Metabolic acidosis. 05/12 Slept better. Feeling little better. Sodium improved as well as acid-base balance. Continue 1800 cc fluid restrict. Case management placement likely tomorrow. 05/13 No overnight event or new complaints. Continue fluid restrict. Awaiting placement. 05/14: No major overnight event. Both sodium and potassium level normalized. We will continue 1800 cc/day fluid restrictions, while awaiting long term placement. 05/15: No major overnight events. No checking daily labs anymore. We will continue 1800 cc/day fluid restrictions, while awaiting long term placement. 05/16: No major overnight events. No checking daily labs anymore. We will continue 1800 cc/day fluid restrictions, while awaiting long term placement. 05/17: No major overnight events. No checking daily labs anymore. We will continue 1800 cc/day fluid restrictions, while awaiting long term placement. 05/18: No major overnight events. No checking daily labs anymore. We will continue 1800 cc/day fluid restrictions, while awaiting long term placement. 05/19: No major overnight events. No checking daily labs anymore. We will continue 1800 cc/day fluid restrictions, while awaiting long term placement. 05/20: No major overnight events. No checking daily labs anymore. We will continue 1800 cc/day fluid restrictions, while awaiting long term placement. 05/21: I have taken over the care of this patient and she is medically status quo. We will continue to look for placement. 05/22: The patient was resting comfortably in bed. She has no active complaints or concerns 05/24 The patient was resting comfortably in bed. She was calm and cooperative this morning. She usually tells the same story each morning. 05/25 The patient is resting in bed. She has no active complaints or concerns 05/28 The patient has no active complaints or concerns. We had discharge meeting today and are still waiting for placement. 05/29 Patient slept well last night. We will get updated labs today. No overnight events or new complaints. Review of Systems: denies headache/fever/chills/chest or abdominal pain/cough/dyspnea/diarrhea. Otherwise see above. Constitutional Vitals: Vital Signs Temp Pulse Resp BP Pulse Ox O2 Del Method O2 Flow Rate 97.4 F 64 20 104/53 95 0 05/29/22 03:46 05/29/22 03:46 05/29/22 03:46 05/29/22 03:46 05/29/22 03:46 05/29/22 03:46 05/13/22 12:12 Period Temp Pulse Resp BP Sys/Norris Pulse Ox O2 Del Method O2 Flow Rate Last 24 Hr 97.4 F-99.0 F 64-88 18-20 104-136/53-90 95-95 Room Air-Room Air Intake and Output 05/28/22 05/29/22 05/29/22 21:59 05:59 13:59 Intake Total 360 800 Output Total 1100 150 Balance -740 800 -150 Weight 86.409 kg Intake & Output: Intake & Output 05/28/22 05/29/22 05/29/22 21:59 05:59 13:59 Intake Total 360 800 Output Total 1100 150 Balance -740 800 -150 Weight 86.409 kg Intake: Oral 360 800 Output: Void Amount 1100 150 Other: Meal Dinner Percent of Meal Consumed 100% Feeding Ability Assist with Tray Set Up Urine Appearance Clear Clear Urine Color Bright Yellow Yellow Urine Odor Normal Exam: General: Alert, Awake, No acute Distress, obese Eyes/N/T: EOMI,, Head/Neck: neck supple, CV: RRR, No murmurs, Pulm: Clear b/l, no wheezing/rhonchi/rales Abd: soft, nontender, +BS x4 Ext: no clubbing/cyanosis/edema Neuro: Alert, no focal deficits, moves all extremities, Skin: warm/dry OBJ DATA Labs CBC & Chem 7: 05/09/22 20:42 05/12/22 05:44 Meds: Medications Acetaminophen (Acetaminophen 325 Mg Tablet) 650 mg PO Q6HP PRN; Protocol PRN Reason: Per Pain Protocol/Fever > 101 Last Admin: 05/28/22 18:34 Dose: 650 mg Albuterol/Ipratropium (Ipratropium/Albuterol 3 Ml Ampul.Neb) 3 ml NEB Q4HP PRN PRN Reason: Shortness Of Breath Amlodipine Besylate (Amlodipine 5 Mg Tablet) 5 mg PO DAILY [facility] Last Admin: 05/28/22 09:08 Dose: 5 mg Aspirin (Aspirin 81 Mg Tab.Chew) 81 mg PO BID [facility] Last Admin: 05/28/22 21:43 Dose: 81 mg Clonazepam (Clonazepam 1 Mg Tablet) 1 mg PO TIDP PRN PRN Reason: Agitation Last Admin: 05/29/22 07:44 Dose: 1 mg Dextrose (Dextrose 50% 50 Ml Vial) 0 ml IV UD PRN PRN Reason: Per Sliding Scale Diagnostic Test (Pha) (Accu-Chek 1 Each Strip) 1 each FS ACHS [facility] Last Admin: 05/29/22 07:46 Dose: 1 each Docusate Sodium (Docusate Sodium 100 Mg Capsule) 100 mg PO BID [facility] Last Admin: 05/28/22 21:43 Dose: 100 mg Enoxaparin Sodium (Enoxaparin 40 Mg/0.4 Ml Syringe) 40 mg SQ DAILY [facility] Last Admin: 05/28/22 09:07 Dose: 40 mg Gabapentin (Gabapentin 300 Mg Capsule) 300 mg PO BID [facility] Last Admin: 05/28/22 21:43 Dose: 300 mg Glucose (Dextrose 31 Gm Oral.Susp) 15 gm PO PRN PRN PRN Reason: Hypoglycemia Hydralazine HCl (Hydralazine 20 Mg/Ml Vial) 0 mg IV Q2HP PRN PRN Reason: Hypertension Hydralazine HCl (Hydralazine 10 Mg Tablet) 10 mg PO Q6HP PRN PRN Reason: SBP > 150 Last Admin: 05/21/22 19:03 Dose: 10 mg Hydroxyzine HCl (Hydroxyzine 25 Mg Tablet) 50 mg PO TIDP PRN PRN Reason: anxiety Last Admin: 05/28/22 18:35 Dose: 50 mg Potassium Chloride 40 meq/ (Dextrose) 520 mls @ 130 mls/hr IV UD PRN PRN Reason: Potassium < 3 Magnesium Sulfate (Magnesium Sulfate) 2 gm in 50 mls @ 50 mls/hr IV UD PRN PRN Reason: Magnesium </= 1.6 Insulin Human Lispro (Insulin Lispro 1 Unit/0.01 Ml Unit) 0 unit SQ ACHS [facility]; Protocol Last Admin: 05/29/22 07:46 Dose: Not Given Labetalol HCl (Labetalol 5 Mg/Ml Ml) 0 mg IV Q2HP PRN PRN Reason: Hypertension Lamotrigine (Lamotrigine 100 Mg Tablet) 100 mg PO DAILY [facility] Last Admin: 05/28/22 09:07 Dose: 100 mg Levothyroxine Sodium (Levothyroxine Sodium 112 Mcg Tablet) 112 mcg PO QAMAC [facility] Last Admin: 05/29/22 07:43 Dose: 112 mcg Levothyroxine Sodium (Levothyroxine 25 Mcg Tablet) 25 mcg PO QAMAC [facility] Last Admin: 05/29/22 07:44 Dose: 25 mcg Losartan Potassium (Losartan 50 Mg Tablet) 50 mg PO DAILY [facility] Last Admin: 05/28/22 09:07 Dose: 50 mg Magnesium Hydroxide (Magnesium Hydroxide 30 Ml Oral.Susp) 30 ml PO HSP PRN PRN Reason: Constipation Last Admin: 05/28/22 16:14 Dose: 30 ml Nicotine (Nicotine 21 Mg Patch) 21 mg TOPICAL DAILY@1000 YG Last Admin: 05/28/22 10:43 Dose: 21 mg Olanzapine (Olanzapine 5 Mg Tablet) 5 mg PO HSP PRN PRN Reason: aggitation Last Admin: 05/28/22 18:35 Dose: 5 mg Ondansetron HCl (Ondansetron 4 Mg/2 Ml Vial) 4 mg IV Q4HP PRN PRN Reason: Nausea And Vomiting Last Admin: 05/10/22 08:10 Dose: 4 mg Fluvoxamine 50 Mg (Tablet) 1 dose PO [facility] Last Admin: 05/28/22 21:44 Dose: Not Given Linaclotide [Linzess (] 290 Mcg Capsule) 1 dose PO QDAY [facility] Last Admin: 05/28/22 09:08 Dose: Not Given Polyethylene Glycol (Polyethylene Glycol 3350 17 Gm Packet) 17 gm PO DAILYP PRN PRN Reason: Constipation Last Admin: 05/28/22 21:42 Dose: 17 gm Polyethylene Glycol (Polyethylene Glycol 3350 17 Gm Packet) 17 gm PO DAILYP PRN PRN Reason: Constipation Potassium Chloride (Potassium Chloride 20 Meq Tablet) 40 meq PO UD PRN PRN Reason: Potssium is 3-3.5 Last Admin: 05/10/22 21:42 Dose: 40 meq Potassium Chloride (Potassium Chloride 20 Meq Tablet) 40 meq PO UD PRN PRN Reason: Potassium < 3 Quetiapine Fumarate (Quetiapine 100 Mg Tablet) 400 mg PO [facility] Last Admin: 05/28/22 21:43 Dose: 400 mg Senna (Sennosides 1 Tablet) 2 tab PO DAILYP PRN PRN Reason: Constipation Last Admin: 05/21/22 20:11 Dose: 2 tab A/P Narrative A/P Narrative: A: *Acute on chronic hyponatremia: 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 r esolved *polcypharmacy: *HTN Urgency: Elevated blood pressure in the ED. improved, then became low n ormal suspect home polypharmacy *Hypophosphatemia: *Dementia with h/o behavioral disturbances: *Anxiety/bipolar disorder: *Metabolic acidosis: question if she is taking Diamox at home. improved *DM: A1c 6.4 *Hypothyroidism: tsh wnl *Tobacco abuse: *Obesity: BMI 33 *Inability to care for self: In the process of getting placement to a SNF P: -fluid restrict 1800cc/day -monitor sodium and replete phosphorus -Continue psych meds -cont norvasc/losartan -cont ASA/Statin -SSI, hold metformin for now -Smoking cessation counseling -PT/OT -CM for placement -ppx: Lovenox Time Spent With Patient Time: Total time spent is greater than 50% in coordination of care (as documented) at patient's floor/unit and/or counseling patient: QUALITY VTE Deep Vein Thrombosis/Pulmonary Embolism Present on Admission: No
[2022-05-29 08:56] LABS: Basophils # (Auto) 0.05 K/mcL (0.00-0.30); Basophils % (Auto) 0.7 % (0.0-2.0); Eosinophils # (Auto) 0.14 K/mcL (0.00-0.70); Eosinophils % (Auto) 2.1 % (0.0-7.0); Hematocrit 47.4 % (34.1-44.9); Hemoglobin 14.6 g/dL (11.2-15.7); Lymphocytes # (Auto) 1.96 K/mcL (1.50-4.80); Lymphocytes % (Auto) 28.7 % (15.5-49.0); Mean Cell Volume 90.1 fL (80.0-100.0); Mean Corpuscular HGB Conc 30.8 g/dL (31.0-36.0); Mean Platelet Volume 9.6 fL (7.4-10.4); Monocytes # (Auto) 0.42 K/mcL (0.10-0.90); Monocytes % (Auto) 6.2 % (1.0-12.0); Neutrophils % (Auto) 61.7 % (38.0-78.0); Platelet Count 249 K/mcL (140-440); RBC 5.26 M/mcL (3.59-5.38); Red Cell Distribution Width 13.7 % (11.5-14.5); WBC 6.8 K/mcL (4.5-11.0)
[2022-05-29 09:15] LABS: ALT/SGPT 14 U/L (<40); AST/SGOT 15 U/L (<32); Albumin 4.3 gm/dL (3.2-5.2); Albumin/Globulin Ratio 1.4 (1.0-2.3); Alkaline Phosphatase 100 U/L (39-117); Bilirubin,Direct < 0.2 mg/dL (0-0.3); Bilirubin,Total 0.2 mg/dL (0.1-1.0); Blood Urea Nitrogen 15 mg/dL (8-23); Calcium 10.3 mg/dL (8.6-10.4); Carbon Dioxide 29 mmol/L (22-30); Chloride 105 mmol/L (96-108); Globulin 3.1 gm/dL (2.2-3.7); Glomerular Filtration Rate 50; Glucose 103 mg/dL (70-105); Lactate Dehydrogenase 166 U/L (135-225); Phosphorous 3.1 mg/dL (2.5-4.5); Triglycerides 108 mg/dL (<150); Uric Acid 5.4 mg/dL (2.5-8.0)
[2022-05-29] MEDS: lamoTRIgine 100 MG TABLET PO SCH (09:24)
[2022-05-29] MEDS: GABAPENTIN 300 MG CAPSULE PO SCH ×2 (09:24→21:38)
[2022-05-29] MEDS: DOCUSATE SODIUM 100 MG CAPSULE PO SCH ×2 (09:24→21:37)
[2022-05-29] MEDS: ASPIRIN 81 MG TAB.CHEW PO SCH ×2 (09:24→21:38)
[2022-05-29] MEDS: ENOXAPARIN 40 MG/0.4 ML SYRINGE SQ SCH (09:25)
[2022-05-29] MEDS: LOSARTAN 50 MG TABLET PO SCH (09:25)
[2022-05-29] MEDS: amLODIPine 5 MG TABLET PO SCH (09:25)
--- NOTE | 2022-05-29 10:39 | Discharge Summary ---
Discharge Provider Provider IMPORTANT FOLLOW-UP INFORMATION FOR PCP: Patient information: Note initiated : 05/29/22 at 10:38 am Service Date, if different from initiated Date: [] Patient: Cynthia Kirby a 72 y/o F admitted on 05/09/22 for Dizzy. Chief Complaint: [] Date of admission: 05/09/22 21:56 Primary care physician: Hailey Denis Consults: 05/09/22 Consult to Physician [CONS] Stat Comment: Consulting Provider: Melquiades Post Reason For Exam: Physician to Consult COURSE Hospital Course Hospital course: History of present illness: Ms. Kirby is a 72 year old F Presents ED with dizziness and lightheadedness. Patient felt like she was going to pass out. Denies any headache fever chills nausea or vomiting. Denies any chest pain or shortness of breath. She was found to have sodium of 120, she is chronically low but this is lower than her usual. 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 Patient has recent guardianship and that person has been trying to place the patient in a [facility] facility it sounds like she will go to [place] next week. 05/10 Patient had an episode of nausea vomiting after eating breakfast this morning. She says she typically does not eat that much. She has some occasional dizziness lightheadedness. Sodium elevated today faster than expected. We will provide some DDAVP and some hypotonic's fluid. 05/11 Patient feeling little better today. Denies dizziness or lightheadedness. Fluid restrict monitoring sodium closely. Phosphorus low and will replete. Metabolic acidosis. 05/12 Slept better. Feeling little better. Sodium improved as well as acid-base balance. Continue 1800 cc fluid restrict. Case management placement likely tomorrow. 05/13 No overnight event or new complaints. Continue fluid restrict. Awaiting placement. 05/14: No major overnight event. Both sodium and potassium level normalized. We will continue 1800 cc/day fluid restrictions, while awaiting group home placement. 05/15: No major overnight events. No checking daily labs anymore. We will continue 1800 cc/day fluid restrictions, while awaiting group home placement. 05/16: No major overnight events. No checking daily labs anymore. We will continue 1800 cc/day fluid restrictions, while awaiting group home placement. 05/17: No major overnight events. No checking daily labs anymore. We will continue 1800 cc/day fluid restrictions, while awaiting group home placement. 05/18: No major overnight events. No checking daily labs anymore. We will continue 1800 cc/day fluid restrictions, while awaiting group home placement. 05/19: No major overnight events. No checking daily labs anymore. We will continue 1800 cc/day fluid restrictions, while awaiting group home placement. 05/20: No major overnight events. No checking daily labs anymore. We will continue 1800 cc/day fluid restrictions, while awaiting group home placement. 05/21: I have taken over the care of this patient and she is medically status quo. We will continue to look for placement. 05/22: The patient was resting comfortably in bed. She has no active complaints or concerns 05/24 The patient was resting comfortably in bed. She was calm and cooperative this morning. She usually tells the same story each morning. 05/25 The patient is resting in bed. She has no active complaints or concerns 05/28 The patient has no active complaints or concerns. We had discharge meeting today and are still waiting for placement. 05/29 Patient slept well last night. We will get updated labs today. No overnight events or new complaints. A: *Acute on chronic hyponatremia: 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 resolved *polcypharmacy: *HTN Urgency: Elevated blood pressure in the ED. improved, then became low normal suspect home polypharmacy *Hypophosphatemia: *Dementia with h/o behavioral disturbances: *Anxiety/bipolar disorder: *Metabolic acidosis: question if she is taking Diamox at home. improved *DM: A1c 6.4 *Hypothyroidism: tsh wnl *Tobacco abuse: *Obesity: BMI 33 *Inability to care for self: In the process of getting placement to a SNF P: -fluid restrict 1800cc/day Discharge diagnosis: Acute on chronic hyponatremia psychogenic polydipsia polypharmacy Secondary discharge diagnosis: Electrolyte disorder dementia with behavioral disturbances anxiety bipolar disorder metabolic acidosis diabetes hypothyroidism tobacco abuse obesity inability to care for self Time Spent with Patient Time attestation: Total time spent providing and/or coordinating discharge services: Time spent: Greater than 30 minutes EXAM Constitutional Vitals: Temp Pulse Resp BP Pulse Ox O2 Del Method O2 Flow Rate 97.4 F 74 20 165/88 97 0 05/29/22 08:00 05/29/22 08:00 05/29/22 08:00 05/29/22 08:00 05/29/22 08:00 05/29/22 08:00 05/13/22 12:12 Discharge Data Data Completed and Pending Labs on day of discharge: Labs from last 24 hours 05/29/22 05/29/22 08:22 08:21 WBC 6.8 RBC 5.26 Hgb 14.6 Hct 47.4 H MCV 90.1 MCH 27.8 MCHC 30.8 L RDW 13.7 Plt Count 249 MPV 9.6 Immature Gran % (Auto) 0.6 H Neut % (Auto) 61.7 Lymph % (Auto) 28.7 [place] % (Auto) 6.2 Eos % (Auto) 2.1 Baso % (Auto) 0.7 Lymph # (Auto) 1.96 [place] # (Auto) 0.42 Eos # (Auto) 0.14 Baso # (Auto) 0.05 Immature Gran # 0.04 Absolute Neutrophils 4.21 Sodium 141 Potassium 4.1 Chloride 105 Carbon Dioxide 29 Anion Gap 7.0 L BUN 15 Creatinine 1.1 GFR Calculation 50 Glucose 103 Uric Acid 5.4 Calcium 10.3 Phosphorus 3.1 Magnesium 2.4 Total Bilirubin 0.2 Direct Bilirubin < 0.2 GGT 37 H AST 15 ALT 14 Alkaline Phosphatase 100 Lactate Dehydrogenase 166 Total Protein 7.4 Albumin 4.3 Globulin 3.1 Albumin/Globulin Ratio 1.4 Triglycerides 108 Discharge Plan Patient/Caregiver Discharge Instructions Activity: increase activity as tolerated Diet: Consistent Carbohydrate Activity Restrictions/Additional Instructions: 1800cc fluid strict per day. Prescriptions: Continued gabapentin 300 mg capsule 300 mg PO BID lamotrigine 200 MG tablet 100 mg PO DAILY quetiapine 100 MG tablet 400 mg PO HS losartan 100 MG tablet 100 mg PO DAILY Qty: 30 1RF Linzess 290 mcg Capsule 290 mcg PO QDAY aspirin [Adult Low Dose Aspirin] 81 mg Tablet,Delayed Release (Dr/Ec) 81 mg PO BID levothyroxine [Synthroid] 150 mcg tablet 137 mcg PO QDAY metformin 500 mg Tablet Extended Release 24hr 1,000 mg PO QDAY Rx Instructions: take two tablets by mouth once daily at dinner time fluvoxamine 50 mg tablet 1 tab PO HS Changed clonazepam 1 mg tablet 1 mg PO TID PRN (Reason: Anxiety) Qty: 10 0RF amlodipine 10 mg Tablet 5 mg PO QDAY Qty: 1 0RF Discontinued acetazolamide 250 mg tablet 250 mg PO QDAY amlodipine 10 MG tablet 10 mg PO DAILY quetiapine 100 mg Tablet 200 mg PO DAILY Follow Up Plan Follow up with: Hailey Denis ARNP [Primary Care Provider] - Patient Disposition: Xfer SNF Prognosis: Fair Rehab Potential: Fair I certify that the patient requires SNF services: Yes Overall status at discharge: patient is progressing back to baseline QUALITY VTE Deep Vein Thrombosis/Pulmonary Embolism Present on Admission: No
[2022-05-29] MEDS: NICOTINE 21 MG PATCH TOPICAL SCH (15:56)
[2022-05-29] MEDS: hydrOXYzine 25 MG TABLET PO PRN (19:44)
[2022-05-29] MEDS: ACETAMINOPHEN 325 MG TABLET PO PRN (19:45)
[2022-05-29] MEDS: OLANZapine 5 MG TABLET PO PRN (19:45)
[2022-05-29] MEDS: Fluvoxamine 50 mg tablet PO SCH (21:38)
[2022-05-29] MEDS: QUEtiapine 100 MG TABLET PO SCH (21:38)
[2022-05-30] MEDS: clonazePAM 1 MG TABLET PO PRN ×3 (07:54→20:28)
[2022-05-30] MEDS: SENNOSIDES 1 TABLET PO PRN (07:55)
[2022-05-30] MEDS: LEVOTHYROXINE SODIUM 112 MCG TABLET PO SCH (07:55)
[2022-05-30] MEDS: LEVOTHYROXINE 25 MCG TABLET PO SCH (07:55)
[2022-05-30] MEDS: hydrOXYzine 25 MG TABLET PO PRN ×3 (07:55→20:28)
--- NOTE | 2022-05-30 07:55 | Internal Med Progress Note ---
SUBJECTIVE Subjective Patient information: Note initiated : 05/30/22 at 7:52 am Service Date, if different from initiated Date: [] Patient: Cynthia Kirby a 72 y/o F admitted on 05/09/22 for Dizzy. Chief Complaint: [] Principal diagnosis: Lightheadedness, dizziness, failure to thrive Interval history: History of present illness: Ms. Kirby is a 72 year old F Presents ED with dizziness and lightheadedness. Patient felt like she was going to pass out. Denies any headache fever chills nausea or vomiting. Denies any chest pain or shortness of breath. She was found to have sodium of 120, she is chronically low but this is lower than her usual. 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 Patient has recent guardianship and that person has been trying to place the patient in a nursing home facility it sounds like she will go to [place] next week. 05/10 Patient had an episode of nausea vomiting after eating breakfast this morning. She says she typically does not eat that much. She has some occasional dizziness lightheadedness. Sodium elevated today faster than expected. We will provide some DDAVP and some hypotonic's fluid. 05/11 Patient feeling little better today. Denies dizziness or lightheadedness. Fluid restrict monitoring sodium closely. Phosphorus low and will replete. Metabolic acidosis. 05/12 Slept better. Feeling little better. Sodium improved as well as acid-base balance. Continue 1800 cc fluid restrict. Case management placement likely tomorrow. 05/13 No overnight event or new complaints. Continue fluid restrict. Awaiting placement. 05/14: No major overnight event. Both sodium and potassium level normalized. We will continue 1800 cc/day fluid restrictions, while awaiting intermediate placement. 05/15: No major overnight events. No checking daily labs anymore. We will continue 1800 cc/day fluid restrictions, while awaiting intermediate placement. 05/16: No major overnight events. No checking daily labs anymore. We will continue 1800 cc/day fluid restrictions, while awaiting intermediate placement. 05/17: No major overnight events. No checking daily labs anymore. We will continue 1800 cc/day fluid restrictions, while awaiting intermediate placement. 05/18: No major overnight events. No checking daily labs anymore. We will continue 1800 cc/day fluid restrictions, while awaiting intermediate placement. 05/19: No major overnight events. No checking daily labs anymore. We will continue 1800 cc/day fluid restrictions, while awaiting intermediate placement. 05/20: No major overnight events. No checking daily labs anymore. We will continue 1800 cc/day fluid restrictions, while awaiting intermediate placement. 05/21: I have taken over the care of this patient and she is medically status quo. We will continue to look for placement. 05/22: The patient was resting comfortably in bed. She has no active complaints or concerns 05/24 The patient was resting comfortably in bed. She was calm and cooperative this morning. She usually tells the same story each morning. 05/25 The patient is resting in bed. She has no active complaints or concerns 05/28 The patient has no active complaints or concerns. We had discharge meeting today and are still waiting for placement. 05/29 Patient slept well last night. We will get updated labs today. No overnight events or new complaints. 05/30 Patient has no new complaints. Updated labs yesterday within normal limits. Awaiting placement. Review of Systems: denies headache/fever/chills/chest or abdominal pain/cough/dyspnea/diarrhea. Otherwise see above. Constitutional Vitals: Vital Signs Temp Pulse Resp BP Pulse Ox O2 Del Method O2 Flow Rate 96.9 F L 62 18 102/59 96 0 05/30/22 03:37 05/30/22 03:37 05/30/22 03:37 05/30/22 03:37 05/30/22 03:37 05/30/22 03:37 05/13/22 12:12 Period Temp Pulse Resp BP Sys/Norris Pulse Ox O2 Del Method O2 Flow Rate Last 24 Hr 96.9 F-98.1 F 62-76 16-20 102-165/59-88 95-97 Room Air-Room Air Intake and Output 05/29/22 05/30/22 05/30/22 21:59 05:59 13:59 Intake Total 660 600 Output Total 1000 175 Balance -340 600 -175 Weight 85.548 kg Intake & Output: Intake & Output 05/29/22 05/30/22 05/30/22 21:59 05:59 13:59 Intake Total 660 600 Output Total 1000 175 Balance -340 600 -175 Weight 85.548 kg Intake: Oral 660 600 Output: Void Amount 1000 175 Other: Urine Appearance Clear Clear Cloudy Urine Color Yellow Yellow Urine Odor Normal Exam: General: Alert, Awake, No acute Distress, obese Eyes/N/T: EOMI,, Head/Neck: neck supple, CV: RRR, No murmurs, Pulm: Clear b/l, no wheezing/rhonchi/rales Abd: soft, nontender, +BS x4 Ext: no clubbing/cyanosis/edema Neuro: Alert, no focal deficits, moves all extremities, Skin: warm/dry OBJ DATA Labs CBC & Chem 7: 05/29/22 08:22 05/29/22 08:21 Labs: Abnormal Lab Results 05/29/22 05/29/22 08:22 08:21 Hct 47.4 H MCHC 30.8 L Immature Gran % (Auto) 0.6 H Anion Gap 7.0 L GGT 37 H Meds: Medications Acetaminophen (Acetaminophen 325 Mg Tablet) 650 mg PO Q6HP PRN; Protocol PRN Reason: Per Pain Protocol/Fever > 101 Last Admin: 05/29/22 19:45 Dose: 650 mg Albuterol/Ipratropium (Ipratropium/Albuterol 3 Ml Ampul.Neb) 3 ml NEB Q4HP PRN PRN Reason: Shortness Of Breath Amlodipine Besylate (Amlodipine 5 Mg Tablet) 5 mg PO DAILY [facility] Last Admin: 05/29/22 09:25 Dose: 5 mg Aspirin (Aspirin 81 Mg Tab.Chew) 81 mg PO BID [facility] Last Admin: 05/29/22 21:38 Dose: 81 mg Clonazepam (Clonazepam 1 Mg Tablet) 1 mg PO TIDP PRN PRN Reason: Agitation Last Admin: 05/29/22 19:45 Dose: 1 mg Docusate Sodium (Docusate Sodium 100 Mg Capsule) 100 mg PO BID [facility] Last Admin: 05/29/22 21:37 Dose: 100 mg Enoxaparin Sodium (Enoxaparin 40 Mg/0.4 Ml Syringe) 40 mg SQ DAILY [facility] Last Admin: 05/29/22 09:25 Dose: 40 mg Gabapentin (Gabapentin 300 Mg Capsule) 300 mg PO BID [facility] Last Admin: 05/29/22 21:38 Dose: 300 mg Hydralazine HCl (Hydralazine 20 Mg/Ml Vial) 0 mg IV Q2HP PRN PRN Reason: Hypertension Hydralazine HCl (Hydralazine 10 Mg Tablet) 10 mg PO Q6HP PRN PRN Reason: SBP > 150 Last Admin: 05/21/22 19:03 Dose: 10 mg Hydroxyzine HCl (Hydroxyzine 25 Mg Tablet) 50 mg PO TIDP PRN PRN Reason: anxiety Last Admin: 05/29/22 19:44 Dose: 50 mg Potassium Chloride 40 meq/ (Dextrose) 520 mls @ 130 mls/hr IV UD PRN PRN Reason: Potassium < 3 Magnesium Sulfate (Magnesium Sulfate) 2 gm in 50 mls @ 50 mls/hr IV UD PRN PRN Reason: Magnesium </= 1.6 Labetalol HCl (Labetalol 5 Mg/Ml Ml) 0 mg IV Q2HP PRN PRN Reason: Hypertension Lamotrigine (Lamotrigine 100 Mg Tablet) 100 mg PO DAILY [facility] Last Admin: 05/29/22 09:24 Dose: 100 mg Levothyroxine Sodium (Levothyroxine Sodium 112 Mcg Tablet) [facility] Last Admin: 05/29/22 07:43 Dose: 112 mcg Levothyroxine Sodium (Levothyroxine 25 Mcg Tablet) [facility] Last Admin: 05/29/22 07:44 Dose: 25 mcg Losartan Potassium (Losartan 50 Mg Tablet) 50 mg PO DAILY [facility] Last Admin: 05/29/22 09:25 Dose: 50 mg Magnesium Hydroxide (Magnesium Hydroxide 30 Ml Oral.Susp) 30 ml PO HSP PRN PRN Reason: Constipation Last Admin: 05/28/22 16:14 Dose: 30 ml Nicotine (Nicotine 21 Mg Patch) 21 mg TOPICAL DAILY@1000 [facility] Last Admin: 05/29/22 15:56 Dose: 21 mg Olanzapine (Olanzapine 5 Mg Tablet) 5 mg PO HSP PRN PRN Reason: aggitation Last Admin: 05/29/22 19:45 Dose: 5 mg Ondansetron HCl (Ondansetron 4 Mg/2 Ml Vial) 4 mg IV Q4HP PRN PRN Reason: Nausea And Vomiting Last Admin: 05/10/22 08:10 Dose: 4 mg Fluvoxamine 50 Mg (Tablet) 1 dose PO [facility] Last Admin: 05/29/22 21:38 Dose: Not Given Linaclotide [Linzess (] 290 Mcg Capsule) 1 dose PO QDAY YG Last Admin: 05/29/22 09:47 Dose: Not Given Polyethylene Glycol (Polyethylene Glycol 3350 17 Gm Packet) 17 gm PO DAILYP PRN PRN Reason: Constipation Last Admin: 05/28/22 21:42 Dose: 17 gm Potassium Chloride (Potassium Chloride 20 Meq Tablet) 40 meq PO UD PRN PRN Reason: Potssium is 3-3.5 Last Admin: 05/10/22 21:42 Dose: 40 meq Potassium Chloride (Potassium Chloride 20 Meq Tablet) 40 meq PO UD PRN PRN Reason: Potassium < 3 Quetiapine Fumarate (Quetiapine 100 Mg Tablet) 400 mg PO HS YG Last Admin: 05/29/22 21:38 Dose: 400 mg Senna (Sennosides 1 Tablet) 2 tab PO DAILYP PRN PRN Reason: Constipation Last Admin: 05/21/22 20:11 Dose: 2 tab A/P Narrative A/P Narrative: A: *Acute on chronic hyponatremia: 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 resolved *polcypharmacy: *HTN Urgency: Elevated blood pressure in the ED. improved, then became low normal suspect home polypharmacy, then labile *Hypophosphatemia: improved *Dementia: *Anxiety/bipolar disorder: *Metabolic acidosis: question if she was taking Diamox at home. improved. d/c'd home diamox *DM: A1c 6.4 *Hypothyroidism: tsh wnl *Tobacco abuse: *Obesity: BMI 33 *Inability to care for self: In the process of getting placement to a SNF P: -fluid restrict 1800cc/day -monitor sodium and replete phosphorus -Continue psych meds -cont norvasc/losartan -cont ASA/Statin -SSI, -Smoking cessation counseling -PT/OT -CM for placement -ppx: Lovenox Time Spent With Patient Time: Total time spent is greater than 50% in coordination of care (as documented) at patient's floor/unit and/or counseling patient: QUALITY VTE Deep Vein Thrombosis/Pulmonary Embolism Present on Admission: No
[2022-05-30] MEDS: amLODIPine 5 MG TABLET PO SCH (11:42)
[2022-05-30] MEDS: ASPIRIN 81 MG TAB.CHEW PO SCH ×2 (11:42→20:28)
[2022-05-30] MEDS: DOCUSATE SODIUM 100 MG CAPSULE PO SCH ×3 (11:42→20:28)
[2022-05-30] MEDS: LOSARTAN 50 MG TABLET PO SCH (11:43)
[2022-05-30] MEDS: GABAPENTIN 300 MG CAPSULE PO SCH ×2 (11:43→20:35)
[2022-05-30] MEDS: lamoTRIgine 100 MG TABLET PO SCH (11:43)
[2022-05-30] MEDS: ENOXAPARIN 40 MG/0.4 ML SYRINGE SQ SCH (11:45)
[2022-05-30] MEDS: NICOTINE 21 MG PATCH TOPICAL SCH (11:48)
[2022-05-30] MEDS: OLANZapine 5 MG TABLET PO PRN (20:28)
[2022-05-30] MEDS: QUEtiapine 100 MG TABLET PO SCH (20:28)
[2022-05-30] MEDS: Fluvoxamine 50 mg tablet PO SCH (20:29)
[2022-05-31] MEDS: LEVOTHYROXINE 25 MCG TABLET PO SCH (07:12)
[2022-05-31] MEDS: LEVOTHYROXINE SODIUM 112 MCG TABLET PO SCH (07:12)
[2022-05-31] MEDS: clonazePAM 1 MG TABLET PO PRN ×3 (08:17→21:00)
[2022-05-31] MEDS: hydrOXYzine 25 MG TABLET PO PRN ×3 (08:17→21:00)
[2022-05-31] MEDS: ENOXAPARIN 40 MG/0.4 ML SYRINGE SQ SCH (08:17)
[2022-05-31] MEDS: amLODIPine 5 MG TABLET PO SCH (08:17)
[2022-05-31] MEDS: ASPIRIN 81 MG TAB.CHEW PO SCH ×2 (08:17→20:20)
[2022-05-31] MEDS: lamoTRIgine 100 MG TABLET PO SCH (08:17)
[2022-05-31] MEDS: GABAPENTIN 300 MG CAPSULE PO SCH ×2 (08:17→20:20)
[2022-05-31] MEDS: DOCUSATE SODIUM 100 MG CAPSULE PO SCH ×2 (08:17→20:20)
[2022-05-31] MEDS: LOSARTAN 50 MG TABLET PO SCH (08:18)
[2022-05-31] MEDS: NICOTINE 21 MG PATCH TOPICAL SCH (08:18)
--- NOTE | 2022-05-31 08:34 | Internal Med Progress Note ---
SUBJECTIVE Subjective Patient information: Note initiated : 05/31/22 at 8:34 am Service Date, if different from initiated Date: [] Patient: Cynthia Kirby a 72 y/o F admitted on 05/09/22 for Dizzy. Chief Complaint: [] Principal diagnosis: Lightheadedness, dizziness, failure to thrive Interval history: History of present illness: Ms. Kirby is a 72 year old F Presents ED with dizziness and lightheadedness. Patient felt like she was going to pass out. Denies any headache fever chills nausea or vomiting. Denies any chest pain or shortness of breath. She was found to have sodium of 120, she is chronically low but this is lower than her usual. 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 Patient has recent guardianship and that person has been trying to place the patient in a long-term facility it sounds like she will go to [place] next week. 05/10 Patient had an episode of nausea vomiting after eating breakfast this morning. She says she typically does not eat that much. She has some occasional dizziness lightheadedness. Sodium elevated today faster than expected. We will provide some DDAVP and some hypotonic's fluid. 05/11 Patient feeling little better today. Denies dizziness or lightheadedness. Fluid restrict monitoring sodium closely. Phosphorus low and will replete. Metabolic acidosis. 05/12 Slept better. Feeling little better. Sodium improved as well as acid-base balance. Continue 1800 cc fluid restrict. Case management placement likely tomorrow. 05/13 No overnight event or new complaints. Continue fluid restrict. Awaiting placement. 05/14: No major overnight event. Both sodium and potassium level normalized. We will continue 1800 cc/day fluid restrictions, while awaiting care home placement. 05/15: No major overnight events. No checking daily labs anymore. We will continue 1800 cc/day fluid restrictions, while awaiting care home placement. 05/16: No major overnight events. No checking daily labs anymore. We will continue 1800 cc/day fluid restrictions, while awaiting care home placement. 05/17: No major overnight events. No checking daily labs anymore. We will continue 1800 cc/day fluid restrictions, while awaiting care home placement. 05/18: No major overnight events. No checking daily labs anymore. We will continue 1800 cc/day fluid restrictions, while awaiting care home placement. 05/19: No major overnight events. No checking daily labs anymore. We will continue 1800 cc/day fluid restrictions, while awaiting care home placement. 05/20: No major overnight events. No checking daily labs anymore. We will continue 1800 cc/day fluid restrictions, while awaiting care home placement. 05/21: I have taken over the care of this patient and she is medically status quo. We will continue to look for placement. 05/22: The patient was resting comfortably in bed. She has no active complaints or concerns 05/24 The patient was resting comfortably in bed. She was calm and cooperative this morning. She usually tells the same story each morning. 05/25 The patient is resting in bed. She has no active complaints or concerns 05/28 The patient has no active complaints or concerns. We had discharge meeting today and are still waiting for placement. 05/29 Patient slept well last night. We will get updated labs today. No overnight events or new complaints. 05/30 Patient has no new complaints. Updated labs yesterday within normal limits. Awaiting placement. 05/31 No changes overnight. No new complaints. Review of Systems: denies headache/fever/chills/chest or abdominal pain/cough/dyspnea/diarrhea. Otherwise see above. Constitutional Vitals: Vital Signs Temp Pulse Resp BP Pulse Ox O2 Del Method O2 Flow Rate 97.6 F 79 18 128/80 95 0 05/31/22 07:32 05/31/22 07:32 05/31/22 07:32 05/31/22 07:32 05/31/22 07:32 05/31/22 07:32 05/13/22 12:12 Period Temp Pulse Resp BP Sys/Norris Pulse Ox O2 Del Method O2 Flow Rate Last 24 Hr 97.0 F-98.2 F 68-79 16-18 124-160/65-94 95-97 Room Air-Room Air Intake and Output 05/30/22 05/31/22 05/31/22 21:59 05:59 13:59 Intake Total 730 0 Output Total 1250 Balance -520 0 Weight 83.915 kg Intake & Output: Intake & Output 05/30/22 05/31/22 05/31/22 21:59 05:59 13:59 Intake Total 730 0 Output Total 1250 Balance -520 0 Weight 83.915 kg Intake: Oral 730 0 Output: Void Amount 1250 Other: Meal Dinner Breakfast Percent of Meal Consumed 100% 100% Feeding Ability Independent Independent Urine Appearance Cloudy Urine Color Yellow Urine Odor Foul Exam: General: Alert, Awake, No acute Distress, obese Eyes/N/T: EOMI,, Head/Neck: neck supple, CV: RRR, No murmurs, Pulm: Clear b/l, no wheezing/rhonchi/rales Abd: soft, nontender, +BS x4 Ext: no clubbing/cyanosis/edema Neuro: Alert, no focal deficits, moves all extremities, Skin: warm/dry OBJ DATA Labs CBC & Chem 7: 05/29/22 08:22 05/29/22 08:21 Labs: Abnormal Lab Results 05/29/22 05/29/22 08:22 08:21 Hct 47.4 H MCHC 30.8 L Immature Gran % (Auto) 0.6 H Anion Gap 7.0 L GGT 37 H Meds: Medications Acetaminophen (Acetaminophen 325 Mg Tablet) 650 mg PO Q6HP PRN; Protocol PRN Reason: Per Pain Protocol/Fever > 101 Last Admin: 05/29/22 19:45 Dose: 650 mg Albuterol/Ipratropium (Ipratropium/Albuterol 3 Ml Ampul.Neb) 3 ml NEB Q4HP PRN PRN Reason: Shortness Of Breath Amlodipine Besylate (Amlodipine 5 Mg Tablet) 5 mg PO DAILY [facility] Last Admin: 05/31/22 08:17 Dose: 5 mg Aspirin (Aspirin 81 Mg Tab.Chew) 81 mg PO BID [facility] Last Admin: 05/31/22 08:17 Dose: 81 mg Clonazepam (Clonazepam 1 Mg Tablet) 1 mg PO TIDP PRN PRN Reason: Agitation Last Admin: 05/31/22 08:17 Dose: 1 mg Docusate Sodium (Docusate Sodium 100 Mg Capsule) 100 mg PO BID [facility] Last Admin: 05/31/22 08:17 Dose: 100 mg Enoxaparin Sodium (Enoxaparin 40 Mg/0.4 Ml Syringe) 40 mg SQ DAILY [facility] Last Admin: 05/31/22 08:17 Dose: 40 mg Gabapentin (Gabapentin 300 Mg Capsule) 300 mg PO BID [facility] Last Admin: 05/31/22 08:17 Dose: 300 mg Hydralazine HCl (Hydralazine 20 Mg/Ml Vial) 0 mg IV Q2HP PRN PRN Reason: Hypertension Hydralazine HCl (Hydralazine 10 Mg Tablet) 10 mg PO Q6HP PRN PRN Reason: SBP > 150 Last Admin: 05/21/22 19:03 Dose: 10 mg Hydroxyzine HCl (Hydroxyzine 25 Mg Tablet) 50 mg PO TIDP PRN PRN Reason: anxiety Last Admin: 05/31/22 08:17 Dose: 50 mg Potassium Chloride 40 meq/ (Dextrose) 520 mls @ 130 mls/hr IV UD PRN PRN Reason: Potassium < 3 Magnesium Sulfate (Magnesium Sulfate) 2 gm in 50 mls @ 50 mls/hr IV UD PRN PRN Reason: Magnesium </= 1.6 Labetalol HCl (Labetalol 5 Mg/Ml Ml) 0 mg IV Q2HP PRN PRN Reason: Hypertension Lamotrigine (Lamotrigine 100 Mg Tablet) 100 mg PO DAILY [facility] Last Admin: 05/31/22 08:17 Dose: 100 mg Levothyroxine Sodium (Levothyroxine Sodium 112 Mcg Tablet) 112 mcg PO QAMAC [facility] Last Admin: 05/31/22 07:12 Dose: 112 mcg Levothyroxine Sodium (Levothyroxine 25 Mcg Tablet) 25 mcg PO QAMAC [facility] Last Admin: 05/31/22 07:12 Dose: 25 mcg Losartan Potassium (Losartan 50 Mg Tablet) 50 mg PO DAILY [facility] Last Admin: 05/31/22 08:18 Dose: 50 mg Magnesium Hydroxide (Magnesium Hydroxide 30 Ml Oral.Susp) 30 ml PO HSP PRN PRN Reason: Constipation Last Admin: 05/28/22 16:14 Dose: 30 ml Nicotine (Nicotine 21 Mg Patch) 21 mg TOPICAL DAILY@1000 [facility] Last Admin: 05/31/22 08:18 Dose: 21 mg Olanzapine (Olanzapine 5 Mg Tablet) 5 mg PO HSP PRN PRN Reason: aggitation Last Admin: 05/30/22 20:28 Dose: 5 mg Ondansetron HCl (Ondansetron 4 Mg/2 Ml Vial) 4 mg IV Q4HP PRN PRN Reason: Nausea And Vomiting Last Admin: 05/10/22 08:10 Dose: 4 mg Fluvoxamine 50 Mg (Tablet) 1 dose PO HS [facility] Last Admin: 05/30/22 20:29 Dose: Not Given Linaclotide [Linzess (] 290 Mcg Capsule) 1 dose PO QDAY [facility] Last Admin: 05/31/22 08:18 Dose: Not Given Polyethylene Glycol (Polyethylene Glycol 3350 17 Gm Packet) 17 gm PO DAILYP PRN PRN Reason: Constipation Last Admin: 05/28/22 21:42 Dose: 17 gm Potassium Chloride (Potassium Chloride 20 Meq Tablet) 40 meq PO UD PRN PRN Reason: Potssium is 3-3.5 Last Admin: 05/10/22 21:42 Dose: 40 meq Potassium Chloride (Potassium Chloride 20 Meq Tablet) 40 meq PO UD PRN PRN Reason: Potassium < 3 Quetiapine Fumarate (Quetiapine 100 Mg Tablet) [address] [facility] Last Admin: 05/30/22 20:28 Dose: 400 mg Senna (Sennosides 1 Tablet) 2 tab PO DAILYP PRN PRN Reason: Constipation Last Admin: 05/30/22 07:55 Dose: 2 tab A/P Narrative A/P Narrative: A: *Acute on chronic hyponatremia: 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 resolved *polcypharmacy: *HTN Urgency: Elevated blood pressure in the ED. improved, then became low normal suspect home polypharmacy, then labile *Hypophosphatemia: improved *Dementia: *Anxiety/bipolar disorder: *Metabolic acidosis: question if she was taking Diamox at home. improved. d/c'd home diamox *DM: A1c 6.4 *Hypothyroidism: tsh wnl *Tobacco abuse: *Obesity: BMI 33 *Inability to care for self: In the process of getting placement to a SNF P: -fluid restrict 1800cc/day -monitor sodium and replete phosphorus -Continue psych meds -cont norvasc/losartan -cont ASA/Statin -SSI, -Smoking cessation counseling -PT/OT -CM for placement -ppx: Lovenox Time Spent With Patient Time: Total time spent is greater than 50% in coordination of care (as documented) at patient's floor/unit and/or counseling patient: QUALITY VTE Deep Vein Thrombosis/Pulmonary Embolism Present on Admission: No
[2022-05-31] MEDS: Fluvoxamine 50 mg tablet PO SCH (20:12)
[2022-05-31] MEDS: OLANZapine 5 MG TABLET PO PRN (20:20)
[2022-05-31] MEDS: QUEtiapine 100 MG TABLET PO SCH (20:20)
[2022-06-01] MEDS: POLYETHYLENE GLYCOL 3350 17 GM PACKET PO PRN (07:51)
[2022-06-01] MEDS: SENNOSIDES 1 TABLET PO PRN (07:53)
[2022-06-01] MEDS: clonazePAM 1 MG TABLET PO PRN ×3 (07:53→20:35)
[2022-06-01] MEDS: LEVOTHYROXINE SODIUM 112 MCG TABLET PO SCH (07:53)
[2022-06-01] MEDS: LEVOTHYROXINE 25 MCG TABLET PO SCH (07:53)
[2022-06-01] MEDS: hydrOXYzine 25 MG TABLET PO PRN ×3 (07:53→20:35)
--- NOTE | 2022-06-01 08:43 | Internal Med Progress Note ---
SUBJECTIVE Subjective Patient information: Note initiated : 06/01/22 at 8:43 am Service Date, if different from initiated Date: [] Patient: Cynthia Kirby a 72 y/o F admitted on 05/09/22 for Dizzy. Chief Complaint: [] Principal diagnosis: Lightheadedness, dizziness, failure to thrive Interval history: History of present illness: Ms. Kriby is a 72 year old F Presents ED with dizziness and lightheadedness. Patient felt like she was going to pass out. Denies any headache fever chills nausea or vomiting. Denies any chest pain or shortness of breath. She was found to have sodium of 120, she is chronically low but this is lower than her usual. 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 Patient has recent guardianship and that person has been trying to place the patient in a long-term facility it sounds like she will go to [place] next week. 05/10 Patient had an episode of nausea vomiting after eating breakfast this morning. She says she typically does not eat that much. She has some occasional dizziness lightheadedness. Sodium elevated today faster than expected. We will provide some DDAVP and some hypotonic's fluid. 05/11 Patient feeling little better today. Denies dizziness or lightheadedness. Fluid restrict monitoring sodium closely. Phosphorus low and will replete. Metabolic acidosis. 05/12 Slept better. Feeling little better. Sodium improved as well as acid-base balance. Continue 1800 cc fluid restrict. Case management placement likely tomorrow. 05/13 No overnight event or new complaints. Continue fluid restrict. Awaiting placement. 05/14: No major overnight event. Both sodium and potassium level normalized. We will continue 1800 cc/day fluid restrictions, while awaiting longterm placement. 05/15: No major overnight events. No checking daily labs anymore. We will continue 1800 cc/day fluid restrictions, while awaiting longterm placement. 05/16: No major overnight events. No checking daily labs anymore. We will continue 1800 cc/day fluid restrictions, while awaiting longterm placement. 05/17: No major overnight events. No checking daily labs anymore. We will continue 1800 cc/day fluid restrictions, while awaiting longterm placement. 05/18: No major overnight events. No checking daily labs anymore. We will continue 1800 cc/day fluid restrictions, while awaiting longterm placement. 05/19: No major overnight events. No checking daily labs anymore. We will continue 1800 cc/day fluid restrictions, while awaiting longterm placement. 05/20: No major overnight events. No checking daily labs anymore. We will continue 1800 cc/day fluid restrictions, while awaiting longterm placement. 05/21: I have taken over the care of this patient and she is medically status quo. We will continue to look for placement. 05/22: The patient was resting comfortably in bed. She has no active complaints or concerns 05/24 The patient was resting comfortably in bed. She was calm and cooperative this morning. She usually tells the same story each morning. 05/25 The patient is resting in bed. She has no active complaints or concerns 05/28 The patient has no active complaints or concerns. We had discharge meeting today and are still waiting for placement. 05/29 Patient slept well last night. We will get updated labs today. No overnight events or new complaints. 05/30 Patient has no new complaints. Updated labs yesterday within normal limits. Awaiting placement. 05/31 No changes overnight. No new complaints. 06/01 No changes overnight. Patient wanting to go home. Awaiting placement for Friday. Review of Systems: denies headache/fever/chills/chest or abdominal pain/cough/dyspnea/diarrhea. Otherwise see above. Constitutional Vitals: Vital Signs Temp Pulse Resp BP Pulse Ox O2 Del Method O2 Flow Rate 97.7 F 69 18 143/78 95 0 06/01/22 07:41 06/01/22 07:41 06/01/22 07:41 06/01/22 07:41 06/01/22 07:41 06/01/22 07:41 05/13/22 12:12 Period Temp Pulse Resp BP Sys/Norris Pulse Ox O2 Del Method O2 Flow Rate Last 24 Hr 97.4 F-98.8 F 65-73 16-18 98-143/65-85 95-99 Room Air-Room Air Intake and Output 05/31/22 06/01/22 06/01/22 21:59 05:59 13:59 Intake Total 953 240 Output Total 975 250 525 Weight 84.992 kg Intake & Output: Intake & Output 05/31/22 06/01/22 06/01/22 21:59 05:59 13:59 Intake Total 953 240 Output Total 975 032 525 Weight 84.992 kg Intake: Oral 953 240 Output: Void Amount 975 250 525 Other: Meal Dinner Percent of Meal Consumed 100% Feeding Ability Independent Urine Appearance Cloudy Clear Urine Color Bright Yellow Bright Yellow Urine Odor Normal Exam: General: Alert, Awake, No acute Distress, obese Eyes/N/T: EOMI,, Head/Neck: neck supple, CV: RRR, No murmurs, Pulm: Clear b/l, no wheezing/rhonchi/rales Abd: soft, nontender, +BS x4 Ext: no clubbing/cyanosis/edema Neuro: Alert, no focal deficits, moves all extremities, Skin: warm/dry OBJ DATA Labs CBC & Chem 7: 05/29/22 08:22 05/29/22 08:21 Labs: Abnormal Lab Results 05/29/22 05/29/22 08:22 08:21 Hct 47.4 H MCHC 30.8 L Immature Gran % (Auto) 0.6 H Anion Gap 7.0 L GGT 37 H Meds: Medications Acetaminophen (Acetaminophen 325 Mg Tablet) 650 mg PO Q6HP PRN; Protocol PRN Reason: Per Pain Protocol/Fever > 101 Last Admin: 05/29/22 19:45 Dose: 650 mg Albuterol/Ipratropium (Ipratropium/Albuterol 3 Ml Ampul.Neb) 3 ml NEB Q4HP PRN PRN Reason: Shortness Of Breath Amlodipine Besylate (Amlodipine 5 Mg Tablet) 5 mg PO DAILY [facility] Last Admin: 05/31/22 08:17 Dose: 5 mg Aspirin (Aspirin 81 Mg Tab.Chew) 81 mg PO BID [facility] Last Admin: 05/31/22 20:20 Dose: 81 mg Clonazepam (Clonazepam 1 Mg Tablet) 1 mg PO TIDP PRN PRN Reason: Agitation Last Admin: 06/01/22 07:53 Dose: 1 mg Docusate Sodium (Docusate Sodium 100 Mg Capsule) 100 mg PO BID [facility] Last Admin: 05/31/22 20:20 Dose: 100 mg Enoxaparin Sodium (Enoxaparin 40 Mg/0.4 Ml Syringe) 40 mg SQ DAILY [facility] Last Admin: 05/31/22 08:17 Dose: 40 mg Gabapentin (Gabapentin 300 Mg Capsule) 300 mg PO BID [facility] Last Admin: 05/31/22 20:20 Dose: 300 mg Hydralazine HCl (Hydralazine 20 Mg/Ml Vial) 0 mg IV Q2HP PRN PRN Reason: Hypertension Hydralazine HCl (Hydralazine 10 Mg Tablet) 10 mg PO Q6HP PRN PRN Reason: SBP > 150 Last Admin: 05/21/22 19:03 Dose: 10 mg Hydroxyzine HCl (Hydroxyzine 25 Mg Tablet) 50 mg PO TIDP PRN PRN Reason: anxiety Last Admin: 06/01/22 07:53 Dose: 50 mg Potassium Chloride 40 meq/ (Dextrose) 520 mls @ 130 mls/hr IV UD PRN PRN Reason: Potassium < 3 Magnesium Sulfate (Magnesium Sulfate) 2 gm in 50 mls @ 50 mls/hr IV UD PRN PRN Reason: Magnesium </= 1.6 Labetalol HCl (Labetalol 5 Mg/Ml Ml) 0 mg IV Q2HP PRN PRN Reason: Hypertension Lamotrigine (Lamotrigine 100 Mg Tablet) 100 mg PO DAILY [facility] Last Admin: 05/31/22 08:17 Dose: 100 mg Levothyroxine Sodium (Levothyroxine Sodium 112 Mcg Tablet) 112 mcg PO QAMAC [facility] Last Admin: 06/01/22 07:53 Dose: 112 mcg Levothyroxine Sodium (Levothyroxine 25 Mcg Tablet) 25 mcg PO QAMAC [facility] Last Admin: 06/01/22 07:53 Dose: 25 mcg Losartan Potassium (Losartan 50 Mg Tablet) 50 mg PO DAILY [facility] Last Admin: 05/31/22 08:18 Dose: 50 mg Magnesium Hydroxide (Magnesium Hydroxide 30 Ml Oral.Susp) 30 ml PO HSP PRN PRN Reason: Constipation Last Admin: 05/28/22 16:14 Dose: 30 ml Nicotine (Nicotine 21 Mg Patch) 21 mg TOPICAL DAILY@1000 [facility] Last Admin: 05/31/22 08:18 Dose: 21 mg Olanzapine (Olanzapine 5 Mg Tablet) 5 mg PO HSP PRN PRN Reason: aggitation Last Admin: 05/31/22 20:20 Dose: 5 mg Ondansetron HCl (Ondansetron 4 Mg/2 Ml Vial) 4 mg IV Q4HP PRN PRN Reason: Nausea And Vomiting Last Admin: 05/10/22 08:10 Dose: 4 mg Fluvoxamine 50 Mg (Tablet) 1 dose PO HS [facility] Last Admin: 05/31/22 20:12 Dose: Not Given Linaclotide [Linzess (] 290 Mcg Capsule) 1 dose PO QDAY [facility] Last Admin: 06/01/22 08:01 Dose: Not Given Polyethylene Glycol (Polyethylene Glycol 3350 17 Gm Packet) 17 gm PO DAILYP PRN PRN Reason: Constipation Last Admin: 06/01/22 07:51 Dose: 17 gm Potassium Chloride (Potassium Chloride 20 Meq Tablet) 40 meq PO UD PRN PRN Reason: Potssium is 3-3.5 Last Admin: 05/10/22 21:42 Dose: 40 meq Potassium Chloride (Potassium Chloride 20 Meq Tablet) 40 meq PO UD PRN PRN Reason: Potassium < 3 Quetiapine Fumarate (Quetiapine 100 Mg Tablet) 400 mg PO [facility] Last Admin: 05/31/22 20:20 Dose: 400 mg Senna (Sennosides 1 Tablet) 2 tab PO DAILYP PRN PRN Reason: Constipation Last Admin: 06/01/22 07:53 Dose: 2 tab A/P Narrative A/P Narrative: A: *Acute on chronic hyponatremia: 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 resol tawnya *polcypharmacy: *HTN Urgency: Elevated blood pressure in the ED. improved, then became low jing l suspect home polypharmacy, then labile *Hypophosphatemia: improved *Dementia: *Anxiety/bipolar disorder: *Metabolic acidosis: question if she was taking Diamox at home. improved. d/c'd home diamox *DM: A1c 6.4 *Hypothyroidism: tsh wnl *Tobacco abuse: *Obesity: BMI 33 *Inability to care for self: In the process of getting placement to a SNF P: -fluid restrict 1800cc/day -monitor sodium and replete phosphorus -Continue psych meds -cont norvasc/losartan -cont ASA/Statin -SSI, -Smoking cessation counseling -PT/OT -CM for placement -ppx: Lovenox Time Spent With Patient Time: Total time spent is greater than 50% in coordination of care (as documented) at patient's floor/unit and/or counseling patient: QUALITY VTE Deep Vein Thrombosis/Pulmonary Embolism Present on Admission: No
[2022-06-01] MEDS: ASPIRIN 81 MG TAB.CHEW PO SCH ×2 (11:54→20:34)
[2022-06-01] MEDS: DOCUSATE SODIUM 100 MG CAPSULE PO SCH ×2 (11:54→20:35)
[2022-06-01] MEDS: LOSARTAN 50 MG TABLET PO SCH (11:54)
[2022-06-01] MEDS: amLODIPine 5 MG TABLET PO SCH (11:55)
[2022-06-01] MEDS: GABAPENTIN 300 MG CAPSULE PO SCH ×2 (11:56→20:35)
[2022-06-01] MEDS: lamoTRIgine 100 MG TABLET PO SCH (11:56)
[2022-06-01] MEDS: NICOTINE 21 MG PATCH TOPICAL SCH (11:57)
[2022-06-01] MEDS: ENOXAPARIN 40 MG/0.4 ML SYRINGE SQ SCH (12:27)
[2022-06-01] MEDS: Fluvoxamine 50 mg tablet PO SCH (19:37)
[2022-06-01] MEDS: OLANZapine 5 MG TABLET PO PRN (20:35)
[2022-06-01] MEDS: QUEtiapine 100 MG TABLET PO SCH (20:35)
[2022-06-02] MEDS: POLYETHYLENE GLYCOL 3350 17 GM PACKET PO PRN (07:02)
[2022-06-02] MEDS: hydrOXYzine 25 MG TABLET PO PRN ×3 (07:03→20:09)
[2022-06-02] MEDS: LEVOTHYROXINE SODIUM 112 MCG TABLET PO SCH (07:03)
[2022-06-02] MEDS: SENNOSIDES 1 TABLET PO PRN (07:03)
[2022-06-02] MEDS: clonazePAM 1 MG TABLET PO PRN ×3 (07:03→20:10)
[2022-06-02] MEDS: LEVOTHYROXINE 25 MCG TABLET PO SCH (07:03)
--- NOTE | 2022-06-02 08:08 | Internal Med Progress Note ---
SUBJECTIVE Subjective Patient information: Note initiated : 06/02/22 at 8:07 am Service Date, if different from initiated Date: [] Patient: Cynthia Kirby a 72 y/o F admitted on 05/09/22 for Dizzy. Chief Complaint: [] Principal diagnosis: Lightheadedness, dizziness, failure to thrive Interval history: History of present illness: Ms. Kirby is a 72 year old F Presents ED with dizziness and lightheadedness. Patient felt like she was going to pass out. Denies any headache fever chills nausea or vomiting. Denies any chest pain or shortness of breath. She was found to have sodium of 120, she is chronically low but this is lower than her usual. 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 Patient has recent guardianship and that person has been trying to place the patient in a detention facility it sounds like she will go to [place] next week. 05/10 Patient had an episode of nausea vomiting after eating breakfast this morning. She says she typically does not eat that much. She has some occasional dizziness lightheadedness. Sodium elevated today faster than expected. We will provide some DDAVP and some hypotonic's fluid. 05/11 Patient feeling little better today. Denies dizziness or lightheadedness. Fluid restrict monitoring sodium closely. Phosphorus low and will replete. Metabolic acidosis. 05/12 Slept better. Feeling little better. Sodium improved as well as acid-base balance. Continue 1800 cc fluid restrict. Case management placement likely tomorrow. 05/13 No overnight event or new complaints. Continue fluid restrict. Awaiting placement. 05/14: No major overnight event. Both sodium and potassium level normalized. We will continue 1800 cc/day fluid restrictions, while awaiting long-term placement. 05/15: No major overnight events. No checking daily labs anymore. We will continue 1800 cc/day fluid restrictions, while awaiting long-term placement. 05/16: No major overnight events. No checking daily labs anymore. We will continue 1800 cc/day fluid restrictions, while awaiting long-term placement. 05/17: No major overnight events. No checking daily labs anymore. We will continue 1800 cc/day fluid restrictions, while awaiting long-term placement. 05/18: No major overnight events. No checking daily labs anymore. We will continue 1800 cc/day fluid restrictions, while awaiting long-term placement. 05/19: No major overnight events. No checking daily labs anymore. We will continue 1800 cc/day fluid restrictions, while awaiting long-term placement. 05/20: No major overnight events. No checking daily labs anymore. We will continue 1800 cc/day fluid restrictions, while awaiting long-term placement. 05/21: I have taken over the care of this patient and she is medically status quo. We will continue to look for placement. 05/22: The patient was resting comfortably in bed. She has no active complaints or concerns 05/24 The patient was resting comfortably in bed. She was calm and cooperative this morning. She usually tells the same story each morning. 05/25 The patient is resting in bed. She has no active complaints or concerns 05/28 The patient has no active complaints or concerns. We had discharge meeting today and are still waiting for placement. 05/29 Patient slept well last night. We will get updated labs today. No overnight events or new complaints. 05/30 Patient has no new complaints. Updated labs yesterday within normal limits. Awaiting placement. 05/31 No changes overnight. No new complaints. 06/01 No changes overnight. Patient wanting to go home. Awaiting placement for Friday. Review of Systems: denies headache/fever/chills/chest or abdominal pain/cough/dyspnea/diarrhea. Otherwise see above. Constitutional Vitals: Vital Signs Temp Pulse Resp BP Pulse Ox O2 Del Method O2 Flow Rate 98 F 68 17 124/83 93 0 06/02/22 07:25 06/02/22 07:25 06/02/22 07:25 06/02/22 07:25 06/02/22 07:25 06/02/22 07:25 05/13/22 12:12 Period Temp Pulse Resp BP Sys/Norris Pulse Ox O2 Del Method O2 Flow Rate Last 24 Hr 97.9 F-98.8 F 68-77 16-20 101-148/57-83 93-98 Room Air-Room Air Intake and Output 06/01/22 06/02/22 06/02/22 21:59 05:59 13:59 Intake Total 937 240 Output Total 1300 650 Balance -363 -410 Weight 82.696 kg Intake & Output: Intake & Output 06/01/22 06/02/22 06/02/22 21:59 05:59 13:59 Intake Total 937 240 Output Total 1300 650 Balance -363 -410 Weight 82.696 kg Intake: Oral 937 240 Output: Void Amount 1300 650 Other: Meal Dinner Percent of Meal Consumed 100% Feeding Ability Independent Urine Appearance Cloudy Urine Color Yellow Exam: General: Alert, Awake, No acute Distress, obese Eyes/N/T: EOMI,, Head/Neck: neck supple, CV: RRR, No murmurs, Pulm: Clear b/l, no wheezing/rhonchi/rales Abd: soft, nontender, +BS x4 Ext: no clubbing/cyanosis/edema Neuro: Alert, no focal deficits, moves all extremities, Skin: warm/dry OBJ DATA Labs CBC & Chem 7: 05/29/22 08:22 05/29/22 08:21 Meds: Medications Acetaminophen (Acetaminophen 325 Mg Tablet) 650 mg PO Q6HP PRN; Protocol PRN Reason: Per Pain Protocol/Fever > 101 Last Admin: 05/29/22 19:45 Dose: 650 mg Albuterol/Ipratropium (Ipratropium/Albuterol 3 Ml Ampul.Neb) 3 ml NEB Q4HP PRN PRN Reason: Shortness Of Breath Amlodipine Besylate (Amlodipine 5 Mg Tablet) 5 mg PO DAILY [facility] Last Admin: 06/01/22 11:55 Dose: 5 mg Aspirin (Aspirin 81 Mg Tab.Chew) 81 mg PO BID [facility] Last Admin: 06/01/22 20:34 Dose: 81 mg Clonazepam (Clonazepam 1 Mg Tablet) 1 mg PO TIDP PRN PRN Reason: Agitation Last Admin: 06/02/22 07:03 Dose: 1 mg Docusate Sodium (Docusate Sodium 100 Mg Capsule) 100 mg PO BID [facility] Last Admin: 06/01/22 20:35 Dose: 100 mg Enoxaparin Sodium (Enoxaparin 40 Mg/0.4 Ml Syringe) 40 mg SQ DAILY [facility] Last Admin: 06/01/22 12:27 Dose: 40 mg Gabapentin (Gabapentin 300 Mg Capsule) 300 mg PO BID [facility] Last Admin: 06/01/22 20:35 Dose: 300 mg Hydralazine HCl (Hydralazine 20 Mg/Ml Vial) 0 mg IV Q2HP PRN PRN Reason: Hypertension Hydralazine HCl (Hydralazine 10 Mg Tablet) 10 mg PO Q6HP PRN PRN Reason: SBP > 150 Last Admin: 05/21/22 19:03 Dose: 10 mg Hydroxyzine HCl (Hydroxyzine 25 Mg Tablet) 50 mg PO TIDP PRN PRN Reason: anxiety Last Admin: 06/02/22 07:03 Dose: 50 mg Potassium Chloride 40 meq/ (Dextrose) 520 mls @ 130 mls/hr IV UD PRN PRN Reason: Potassium < 3 Magnesium Sulfate (Magnesium Sulfate) 2 gm in 50 mls @ 50 mls/hr IV UD PRN PRN Reason: Magnesium </= 1.6 Labetalol HCl (Labetalol 5 Mg/Ml Ml) 0 mg IV Q2HP PRN PRN Reason: Hypertension Lamotrigine (Lamotrigine 100 Mg Tablet) 100 mg PO DAILY [facility] Last Admin: 06/01/22 11:56 Dose: 100 mg Levothyroxine Sodium (Levothyroxine Sodium 112 Mcg Tablet) 112 mcg PO QAMAC [facility] Last Admin: 06/02/22 07:03 Dose: 112 mcg Levothyroxine Sodium (Levothyroxine 25 Mcg Tablet) 25 mcg PO QAMAC [facility] Last Admin: 06/02/22 07:03 Dose: 25 mcg Losartan Potassium (Losartan 50 Mg Tablet) 50 mg PO DAILY [facility] Last Admin: 06/01/22 11:54 Dose: 50 mg Magnesium Hydroxide (Magnesium Hydroxide 30 Ml Oral.Susp) 30 ml PO HSP PRN PRN Reason: Constipation Last Admin: 05/28/22 16:14 Dose: 30 ml Nicotine (Nicotine 21 Mg Patch) 21 mg TOPICAL DAILY@1000 [facility] Last Admin: 06/01/22 11:57 Dose: 21 mg Olanzapine (Olanzapine 5 Mg Tablet) 5 mg PO HSP PRN PRN Reason: aggitation Last Admin: 06/01/22 20:35 Dose: 5 mg Ondansetron HCl (Ondansetron 4 Mg/2 Ml Vial) 4 mg IV Q4HP PRN PRN Reason: Nausea And Vomiting Last Admin: 05/10/22 08:10 Dose: 4 mg Fluvoxamine 50 Mg (Tablet) 1 dose PO HS [facility] Last Admin: 06/01/22 19:37 Dose: Not Given Linaclotide [Linzess (] 290 Mcg Capsule) 1 dose PO QDAY [facility] Last Admin: 06/01/22 08:01 Dose: Not Given Polyethylene Glycol (Polyethylene Glycol 3350 17 Gm Packet) 17 gm PO DAILYP PRN PRN Reason: Constipation Last Admin: 06/02/22 07:02 Dose: 17 gm Potassium Chloride (Potassium Chloride 20 Meq Tablet) 40 meq PO UD PRN PRN Reason: Potssium is 3-3.5 Last Admin: 05/10/22 21:42 Dose: 40 meq Potassium Chloride (Potassium Chloride 20 Meq Tablet) 40 meq PO UD PRN PRN Reason: Potassium < 3 Quetiapine Fumarate (Quetiapine 100 Mg Tablet) 400 mg PO HS [facility] Last Admin: 06/01/22 20:35 Dose: 400 mg Senna (Sennosides 1 Tablet) 2 tab PO DAILYP PRN PRN Reason: Constipation Last Admin: 06/02/22 07:03 Dose: 2 tab A/P Narrative A/P Narrative: A: *Acute on chronic hyponatremia: 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 resolved *polcypharmacy: *HTN Urgency: Elevated blood pressure in the ED. improved, then became low normal suspect home polypharmacy, then labile *Hypophosphatemia: improved *Dementia: *Anxiety/bipolar disorder: *Metabolic acidosis: question if she was taking Diamox at home. improved. d/c'd home diamox *DM: A1c 6.4 *Hypothyroidism: tsh wnl *Tobacco abuse: *Obesity: BMI 33 *Inability to care for self: In the process of getting placement to a SNF P: -fluid restrict 1800cc/day -monitor sodium and replete phosphorus -Continue psych meds -cont norvasc/losartan -cont ASA/Statin -SSI, -Smoking cessation counseling -PT/OT -CM for placement -ppx: Lovenox Time Spent With Patient Time: Total time spent is greater than 50% in coordination of care (as documented) at patient's floor/unit and/or counseling patient: QUALITY VTE Deep Vein Thrombosis/Pulmonary Embolism Present on Admission: No
[2022-06-02] MEDS: ENOXAPARIN 40 MG/0.4 ML SYRINGE SQ SCH (08:47)
[2022-06-02] MEDS: lamoTRIgine 100 MG TABLET PO SCH (08:47)
[2022-06-02] MEDS: GABAPENTIN 300 MG CAPSULE PO SCH ×2 (08:47→20:10)
[2022-06-02] MEDS: LOSARTAN 50 MG TABLET PO SCH (08:47)
[2022-06-02] MEDS: amLODIPine 5 MG TABLET PO SCH (08:47)
[2022-06-02] MEDS: ASPIRIN 81 MG TAB.CHEW PO SCH ×2 (08:47→20:10)
[2022-06-02] MEDS: DOCUSATE SODIUM 100 MG CAPSULE PO SCH ×2 (08:48→20:12)
[2022-06-02] MEDS: NICOTINE 21 MG PATCH TOPICAL SCH (09:48)
[2022-06-02] MEDS: OLANZapine 5 MG TABLET PO PRN (11:44)
[2022-06-02] MEDS: QUEtiapine 100 MG TABLET PO SCH (20:10)
[2022-06-02] MEDS: Fluvoxamine 50 mg tablet PO SCH (20:11)
--- NOTE | 2022-06-03 07:29 | Discharge Summary ---
Discharge Provider Provider IMPORTANT FOLLOW-UP INFORMATION FOR PCP: Patient information: Note initiated : 06/03/22 at 7:28 am Service Date, if different from initiated Date: [] Patient: Cynthia Kirby a 72 y/o F admitted on 05/09/22 for Dizzy. Chief Complaint: [hypoNa] Date of admission: 05/09/22 21:56 Discharge date: 06/03/22 Primary care physician: Hailey Denis Consults: 05/09/22 Consult to Physician [CONS] Stat Comment: Consulting Provider: Melquiades Post Reason For Exam: Physician to Consult [facility] Hospital Course Hospital course: Interval history: History of present illness: Ms. Kirby is a 72 year old F Presents ED with dizziness and lightheadedness. Patient felt like she was going to pass out. Denies any headache fever chills nausea or vomiting. Denies any chest pain or shortness of breath. She was found to have sodium of 120, she is chronically low but this is lower than her usual. 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 Patient has recent guardianship and that person has been trying to place the patient in a jail facility it sounds like she will go to [place] next week. 05/10 Patient had an episode of nausea vomiting after eating breakfast this morning. She says she typically does not eat that much. She has some occasional dizziness lightheadedness. Sodium elevated today faster than expected. We will provide some DDAVP and some hypotonic's fluid. 05/11 Patient feeling little better today. Denies dizziness or lightheadedness. Fluid restrict monitoring sodium closely. Phosphorus low and will replete. Metabolic acidosis. 05/12 Slept better. Feeling little better. Sodium improved as well as acid-base balance. Continue 1800 cc fluid restrict. Case management placement likely tomorrow. 05/13 No overnight event or new complaints. Continue fluid restrict. Awaiting placement. 05/14: No major overnight event. Both sodium and potassium level normalized. We will continue 1800 cc/day fluid restrictions, while awaiting senior care placement. 05/15: No major overnight events. No checking daily labs anymore. We will continue 1800 cc/day fluid restrictions, while awaiting senior care placement. 05/16: No major overnight events. No checking daily labs anymore. We will continue 1800 cc/day fluid restrictions, while awaiting senior care placement. 05/17: No major overnight events. No checking daily labs anymore. We will continue 1800 cc/day fluid restrictions, while awaiting senior care placement. 05/18: No major overnight events. No checking daily labs anymore. We will continue 1800 cc/day fluid restrictions, while awaiting senior care placement. 05/19: No major overnight events. No checking daily labs anymore. We will continue 1800 cc/day fluid restrictions, while awaiting senior care placement. 05/20: No major overnight events. No checking daily labs anymore. We will continue 1800 cc/day fluid restrictions, while awaiting senior care placement. 05/21: I have taken over the care of this patient and she is medically status quo. We will continue to look for placement. 05/22: The patient was resting comfortably in bed. She has no active complaints or concerns 05/24 The patient was resting comfortably in bed. She was calm and cooperative this morning. She usually tells the same story each morning. 05/25 The patient is resting in bed. She has no active complaints or concerns 05/28 The patient has no active complaints or concerns. We had discharge meeting today and are still waiting for placement. 05/29 Patient slept well last night. We will get updated labs today. No overnight events or new complaints. 05/30 Patient has no new complaints. Updated labs yesterday within normal limits. Awaiting placement. 05/31 No changes overnight. No new complaints. 06/01 No changes overnight. Patient wanting to go home. Awaiting placement for Friday. A: *Acute on chronic hyponatremia: 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 resolved *polcypharmacy: *HTN Urgency: Elevated blood pressure in the ED. improved, then became low normal suspect home polypharmacy, then labile *Hypophosphatemia: improved *Dementia: *Anxiety/bipolar disorder: *Metabolic acidosis: question if she was taking Diamox at home. improved. d/c'd home diamox *DM: A1c 6.4 *Hypothyroidism: tsh wnl *Tobacco abuse: *Obesity: BMI 33 *Inability to care for self: In the process of getting placement to a SNF P: -fluid restrict 1800cc/day -monitor sodium and replete phosphorus -Continue psych meds -cont norvasc/losartan -cont ASA/Statin -SSI, -Smoking cessation counseling -PT/OT -CM for placement -ppx: Lovenox Discharge diagnosis: Failure to thrive, hyponatremia, polypharmacy Time Spent with Patient Time attestation: Total time spent providing and/or coordinating discharge services: Time spent: Greater than 30 minutes EXAM Constitutional Vitals: Temp Pulse Resp BP Pulse Ox O2 Del Method O2 Flow Rate 97.5 F 76 24 H 157/86 97 0 06/03/22 03:35 06/03/22 03:35 06/03/22 03:35 06/03/22 03:35 06/02/22 18:48 06/02/22 18:48 05/13/22 12:12 General appearance: average body habitus Head Head exam: Present atraumatic, normal inspection and normocephalic Eye Eye exam: Present EOMI, normal appearance and PERRL; Absent conjunctival injection ENT ENT exam: Present normal exam; Absent mucous membranes dry Neck Neck exam: Present full ROM; Absent lymphadenopathy Respiratory Respiratory exam: Present normal respiratory exam and CTAB; Absent decreased breath sounds, respiratory distress or wheezes Cardiovascular Cardiovascular exam: Present normal rate and rhythm and RRR; Absent JVD GI/Abdominal GI/Abdominal exam: Present normal bowel sounds and soft; Absent diminished bowel sounds, distended, guarding, mass, rebound or tenderness Neurological Exam Neurological exam: Present alert, CN II-XII intact and oriented X3 Psychiatric Psychiatric exam: Present normal affect and normal mood Skin Skin exam: Present intact and warm; Absent erythema, pallor, petechiae or rash Discharge Plan Patient/Caregiver Discharge Instructions Activity: increase activity as tolerated Diet: Consistent Carbohydrate Activity Restrictions/Additional Instructions: 1800cc fluid strict per day. Prescriptions: Continued gabapentin 300 mg capsule 300 mg PO BID lamotrigine 200 MG tablet 100 mg PO DAILY quetiapine 100 MG tablet 400 mg PO HS losartan 100 MG tablet 100 mg PO DAILY Qty: 30 1RF Linzess 290 mcg Capsule 290 mcg PO QDAY aspirin [Adult Low Dose Aspirin] 81 mg Tablet,Delayed Release (Dr/Ec) 81 mg PO BID levothyroxine [Synthroid] 150 mcg tablet 137 mcg PO QDAY metformin 500 mg Tablet Extended Release 24hr 1,000 mg PO QDAY Rx Instructions: take two tablets by mouth once daily at dinner time fluvoxamine 50 mg tablet 1 tab PO HS Changed clonazepam 1 mg tablet 1 mg PO TID PRN (Reason: Anxiety) Qty: 10 0RF amlodipine 10 mg Tablet 5 mg PO QDAY Qty: 1 0RF Discontinued acetazolamide 250 mg tablet 250 mg PO QDAY amlodipine 10 MG tablet 10 mg PO DAILY quetiapine 100 mg Tablet 200 mg PO DAILY Follow Up Plan Patient Disposition: Xfer SNF Prognosis: Fair Rehab Potential: Fair I certify that the patient requires SNF services: Yes Overall status at discharge: patient is progressing back to baseline Discharge Orders: Discharge Order (Routine); Ordered 06/03/22 Ordered By: Leigh MALDONADO VTE Deep Vein Thrombosis/Pulmonary Embolism Present on Admission: No
[2022-06-03] MEDS ORDERED: LORazepam 0.5 MG TABLET PO ONE ×2 (07:39→07:52)
[2022-06-03] MEDS: hydrOXYzine 25 MG TABLET PO PRN (08:02)
[2022-06-03] MEDS: ASPIRIN 81 MG TAB.CHEW PO SCH (08:02)
[2022-06-03] MEDS: clonazePAM 1 MG TABLET PO PRN (08:03)
[2022-06-03] MEDS: LEVOTHYROXINE SODIUM 112 MCG TABLET PO SCH (08:03)
[2022-06-03] MEDS: DOCUSATE SODIUM 100 MG CAPSULE PO SCH (08:03)
[2022-06-03] MEDS: amLODIPine 5 MG TABLET PO SCH (08:03)
[2022-06-03] MEDS: LOSARTAN 50 MG TABLET PO SCH (08:04)
[2022-06-03] MEDS: GABAPENTIN 300 MG CAPSULE PO SCH (08:04)
[2022-06-03] MEDS: LEVOTHYROXINE 25 MCG TABLET PO SCH (08:04)
[2022-06-03] MEDS: lamoTRIgine 100 MG TABLET PO SCH (08:04)
[2022-06-03] MEDS: NICOTINE 21 MG PATCH TOPICAL SCH (08:05)
[2022-06-03] MEDS: ENOXAPARIN 40 MG/0.4 ML SYRINGE SQ SCH (08:05)
== END 2022-06-03 08:56 | DRG 641 ==
LOC: ED 17:02 → ICU 21:56 → MEDSUR 05-13 13:11
PROVIDERS: ADMIT Internal Medicine; ATTEND Internal Medicine